=== PATIENT | female | born 1940 | race Caucasian/White ===

== ENCOUNTER 2016-04-30 08:00 | Outpatient (CLI) | payer MEDICARE, OTHER | END 2016-04-30 08:01 | disposition home or self-care (01) | DX: E11.8 Type 2 diabetes mellitus with unspecified complications (principal) ==

== ENCOUNTER 2016-07-30 09:00 | Outpatient (CLI) | payer MEDICARE, OTHER | END 2016-07-30 09:01 | disposition home or self-care (01) | DX: E11.65 Type 2 diabetes mellitus with hyperglycemia (principal) ==

== ENCOUNTER 2016-08-11 14:26 | Outpatient (CLI) | payer MEDICARE, OTHER ==
[2016-08-11] MEDS ORDERED: REGADENOSON 0.4 MG/5 ML SYRINGE IVP ONE (15:13)
== END 2016-08-11 14:27 | disposition home or self-care (01) ==
DX: R94.31 Abnormal electrocardiogram [ECG] [EKG] (principal)
CPT/HCPCS: 78452; 93017; A9500; J2785

== ENCOUNTER 2016-08-19 14:18 | Outpatient (CLI) | payer MEDICARE, OTHER ==
[2016-08-19 16:06] LABS: CHOL/HDL RATIO 4.6 (<4.4); CHOLESTEROL 116 mg/dL; HDL CHOLESTEROL 25 mg/dL; LDL/HDL RATIO 2.2 (<4.4); TRIGLYCERIDES 176 mg/dL; VLDL CHOLESTEROL 35 mg/dL
== END 2016-08-19 14:19 | disposition home or self-care (01) ==
LOC: LAB 14:18
PROVIDERS: ATTEND Internal Medicine Cardiovascular Disease
DX: Z01.818 Encounter for other preprocedural examination (principal); E11.8 Type 2 diabetes mellitus with unspecified complications; R09.89 Other specified symptoms and signs involving the circulatory and respiratory systems; I15.9 Secondary hypertension, unspecified; I73.9 Peripheral vascular disease, unspecified; G45.9 Transient cerebral ischemic attack, unspecified; I25.10 Atherosclerotic heart disease of native coronary artery without angina pectoris; I70.1 Atherosclerosis of renal artery
CPT/HCPCS: 36415; 80061

== ENCOUNTER 2016-12-30 14:02 | Outpatient (CLI) | payer MEDICARE, OTHER ==
--- NOTE | 2016-12-31 11:50 | DEXA Report ---
requested L4 data excluded from table - still leave total & spine summary? * DEXA SCAN: 12/30/2016 CLINICAL INDICATION: Postmenopausal. TECHNIQUE: Dual energy x-ray absorptiometry (DXA) was performed on a [employer] system. Regions measured are the AP spine, femoral neck, and, if needed, forearm. COMPARISON: None. In accordance with the International Society for Clinical Densitometry (ISCD) guidelines, data from previous exams may be reanalyzed using current recommendations and techniques. This is done to allow a more accurate basis for comparison with the current study. FINDINGS The data for the lumbar spine is as follows: REGION BMD (g/cm/cm) T-SCORE Z-SCORE L1 1.698 4.7 5.9 L2 1.986 6.5 7.7 L3 2.251 8.8 9.9 L4 --- --- --- TOTAL 1.996 6.9 8.0 NOTE: All evaluable vertebrae are used for classification. The data for the hip is as follows: REGION BMD (g/cm/cm) T-SCORE Z-SCORE Neck 1.094 0.4 2.0 TOTAL 1.211 1.6 3.1 NOTE: The femoral neck or total proximal femur, whichever is lowest, is used for classification. IMPRESSION: THE WHO CLASSIFICATION BASED ON THE INTERNATIONAL REFERENCE STANDARD IS NORMAL. THE FRACTURE RISK IS NOT INCREASED. L4 EXCLUDED DUE TO PREVIOUS PEDICLE SCREW FUSION. RECOMMENDATION: Patients with diagnosis of osteoporosis or osteopenia should have regular bone mineral density assessment. For those eligible for Medicare, routine testing is allowed once every 2 years. Testing frequency can be increased for patients who have rapidly progressing disease or for those who are receiving medical therapy to restore bone mass. COMMENT: World Health Organization (WHO) definitions for osteoporosis and osteopenia: NORMAL BMD: T-score at -1.0 or higher, fracture risk is low. OSTEOPENIA BMD: T-score between -1.0 and -2.5, fracture risk is increased. OSTEOPOROSIS BMD: T-score at -2.5 or lower, fracture risk high. National Osteoporosis Foundation recommends: 1. Obtain adequate dietary calcium (at least 1200 mg per day) and vitamin D (400 -800 international units per day). 2. Participate, as appropriate, in regular weightbearing and muscle- strengthening exercise. 3. Avoid tobacco use and reduce alcohol and caffeine intake. 4. For more detailed information see the website at www.NOF.org. MTDD
== END 2016-12-30 14:03 | disposition home or self-care (01) ==
LOC: DI 14:02
PROVIDERS: ATTEND Internal Medicine Hematology & Oncology
DX: C50.912 Malignant neoplasm of unspecified site of left female breast (principal); Z79.811 Long term (current) use of aromatase inhibitors; Z78.0 Asymptomatic menopausal state
CPT/HCPCS: 77080

== ENCOUNTER 2016-12-30 14:28 | Outpatient (CLI) | payer MEDICARE, OTHER ==
--- NOTE | 2016-12-30 17:40 | Mammography Report ---
DIGITAL DIAGNOSTIC BILATERAL MAMMOGRAM: 12/30/2016 CLINICAL INDICATION: A 76-year-old with personal history of left breast cancer status post lumpectom y and radiation therapy, family history of breast cancer. TECHNIQUE: Bilateral CC and MLO views, left true lateral and laterally exaggerated craniocaudal view s. COMPARISON: 09/03/2015, 07/07/2014, 01/17/2014, 05/31/2013, 10/21/2012, 02/25/2012, 02/02/2012, 03/2010, 01/16/2010. FINDINGS: The breasts again demonstrate scattered fibroglandular densities bilaterally. Postoperati ve and posttreatment changes in the left breast are stable. Punctate, typically benign calcification s are present. No suspicious masses, clustered microcalcifications, or regions of architectural dist ortion are identified. IMPRESSION: BENIGN FINDINGS. RECOMMENDATION: Routine annual screening unless otherwise clinically indicated. BI-RADS category 2, benign findings. STANDARD QUALIFYING STATEMENTS 1. This examination was reviewed with the aid of Computer-Aided Detection (CAD). 2. A negative or benign imaging report should not delay biopsy if clinically suspicious findings are present. Consider surgical consultation if warranted. More than 5% of cancers are not identified by i maging. 3. Dense breasts may obscure an underlying neoplasm. JOB #: [id number] EXT JOB #:[id number]
== END 2016-12-30 14:29 | disposition home or self-care (01) ==
LOC: DI 14:28
PROVIDERS: ATTEND Internal Medicine Hematology & Oncology
DX: C50.912 Malignant neoplasm of unspecified site of left female breast (principal); Z79.811 Long term (current) use of aromatase inhibitors; Z80.3 Family history of malignant neoplasm of breast; Z78.0 Asymptomatic menopausal state
CPT/HCPCS: 77080; G0204; 77066

== ENCOUNTER 2017-07-29 08:00 | Outpatient (CLI) | payer MEDICARE, OTHER ==
[2017-07-29 19:36] LABS: BASOPHILS % (AUTO) 0.6 %; EOSINOPHILS # (AUTO) 0.2 10^3/uL (0.0-0.7); EOSINOPHILS % (AUTO) 3.8 %; HGB - HEMOGLOBIN 9.4 g/dL (12.0-16.0); LYMPHOCYTES # (AUTO) 1.3 10^3/uL (1.5-3.5); LYMPHOCYTES % (AUTO) 22.5 %; MEAN CORPUSCULAR HEMOGLOBIN 24.6 pg (27.0-31.0); MEAN CORPUSCULAR HGB CONC 31.4 g/dL (32.0-36.0); MEAN CORPUSCULAR VOLUME 78.3 fL (81.0-99.0); MEAN PLATELET VOLUME 7.9 fL (7.9-10.8); MONOCYTES # (AUTO) 0.5 10^3/uL (0.0-1.0); NEUTROPHILS # (AUTO) 3.7 10^3/uL (1.5-6.6); NEUTROPHILS % (AUTO) 64.1 %; PLT - PLATELET COUNT 255 10^3/uL (130-450); RED BLOOD COUNT 3.81 10^6/uL (4.20-5.40); WHITE BLOOD COUNT 5.7 x10^3/uL (4.8-10.8)
[2017-07-29 19:58] LABS: ALBUMIN 3.4 g/dL (3.2-5.5); ALBUMIN/GLOBULIN RATIO 1.2 (1.0-2.2); ALKALINE PHOSPHATASE 79 IU/L (42-121); ALT ALANINE AMINOTRANSFERASE 12 IU/L (10-60); AST ASPARTATE AMINOTRANSFERASE 15 IU/L (10-42); BILIRUBIN,TOTAL 0.6 mg/dL (0.2-1.0); BUN - BLOOD UREA NITROGEN 13 mg/dL (6-20); CALCIUM 9.2 mg/dL (8.5-10.3); CARBON DIOXIDE - CO2 26 mmol/L (21-32); CHLORIDE 106 mmol/L (101-111); CHOL/HDL RATIO 3.6 (<4.4); CHOLESTEROL 94 mg/dL; CREATININE 0.8 mg/dL (0.4-1.0); GFR - MDRD 69 (>89); GLUCOSE 88 mg/dL (70-100); HDL CHOLESTEROL 26 mg/dL; LDL CHOLESTEROL,CALCULATED 43 mg/dL; LDL/HDL RATIO 1.7 (<4.4); SODIUM 139 mmol/L (135-145); TOTAL PROTEIN 6.3 g/dL (6.7-8.2); URIC ACID 6.8 mg/dL (2.6-7.2); VLDL CHOLESTEROL 25 mg/dL
[2017-07-29 20:07] LABS: HB2 TOTAL 9.9 g/dL; HEMOGLOBIN A1C 0.47 g/dL; HEMOGLOBIN A1C % 6.5 % (4.6-6.2)
== END 2017-07-29 08:01 | disposition home or self-care (01) ==
LOC: LAB.N 08:00
PROVIDERS: ATTEND Internal Medicine
DX: E11.9 Type 2 diabetes mellitus without complications (principal); E79.0 Hyperuricemia without signs of inflammatory arthritis and tophaceous disease; E03.9 Hypothyroidism, unspecified; E78.5 Hyperlipidemia, unspecified; I10 Essential (primary) hypertension; Z79.899 Other long term (current) drug therapy
CPT/HCPCS: 36415; 80053; 80061; 83036; 83721; 84443; 84550; 85025

== ENCOUNTER 2017-08-03 08:00 | Outpatient (CLI) | payer MEDICARE, OTHER ==
[2017-08-03 18:59] LABS: MEAN RETIC VALUE 99.2; RED BLOOD COUNT 3.99 10^6/uL (4.20-5.40)
[2017-08-03 19:32] LABS: FERRITIN 17.9 ng/mL (11.0-306.8)
== END 2017-08-03 08:01 | disposition home or self-care (01) ==
LOC: LAB.N 08:00
PROVIDERS: ATTEND Internal Medicine
DX: D64.9 Anemia, unspecified (principal)
CPT/HCPCS: 36415; 82607; 82728; 83010; 85044; 86880

== ENCOUNTER 2017-09-22 10:13 | Day surgery (SDC) | payer MEDICARE, OTHER ==
[~2017-09-22 10:13] MED LIST: LIDO GARGLE 30 ML BOTTLE ONE
[2017-09-22] MEDS ORDERED: LACTATED RINGERS 1,000 ML IV ONE ×2 (10:56)
[2017-09-22] MEDS ORDERED: LIDO GARGLE 30 ML BOTTLE PO ONE ×2 (11:14→11:44)
[2017-09-22] MEDS ORDERED: fentaNYL 100 MCG/2 ML VIAL IVP ONE (11:40)
[2017-09-22] MEDS ORDERED: MIDAZOLAM 2 MG/2 ML VIAL IVP ONE (11:40)
[2017-09-22] MEDS ORDERED: GLUCAGON 1 MG/ML VIAL IM ONE (11:40)
[2017-09-22 13:12] LABS: CALCIUM 8.6 mg/dL (8.5-10.3); CREATININE 1.1 mg/dL (0.4-1.0)
[2017-09-22 14:06] VITALS: BP 132/70
== END 2017-09-22 10:14 | disposition home or self-care (01) ==
LOC: SDS 10:13
PROVIDERS: ATTEND Surgery
PROC: 0DBM8ZZ Excision of Descending Colon, Via Natural or Artificial Opening Endoscopic (ICD-10-PCS; 2017-09-22)
PROC: 3E0H8GC Introduction of Other Therapeutic Substance into Lower GI, Via Natural or Artificial Opening Endoscopic (ICD-10-PCS; 2017-09-22)
PROC: 0DB68ZX Excision of Stomach, Via Natural or Artificial Opening Endoscopic, Diagnostic (ICD-10-PCS; 2017-09-22)
PROC: 0DBK8ZX Excision of Ascending Colon, Via Natural or Artificial Opening Endoscopic, Diagnostic (ICD-10-PCS; principal; 2017-09-22 11:30)
PROC: 0DBN8ZZ Excision of Sigmoid Colon, Via Natural or Artificial Opening Endoscopic (ICD-10-PCS; 2017-09-22 11:30)
DX: C18.2 Malignant neoplasm of ascending colon (principal); K29.71 Gastritis, unspecified, with bleeding; D50.9 Iron deficiency anemia, unspecified; D12.4 Benign neoplasm of descending colon; D12.5 Benign neoplasm of sigmoid colon; E11.9 Type 2 diabetes mellitus without complications; E78.5 Hyperlipidemia, unspecified; I10 Essential (primary) hypertension; Z85.3 Personal history of malignant neoplasm of breast; Z80.3 Family history of malignant neoplasm of breast; Z87.891 Personal history of nicotine dependence; Z79.84 Long term (current) use of oral hypoglycemic drugs
CPT/HCPCS: 36415; 43239; 45380; 45381; 80048; 82378; A9270; J7120; 88305; 88341; 88342

== ENCOUNTER 2017-09-29 09:59 | Outpatient (CLI) | payer MEDICARE, OTHER ==
[2017-09-29] MEDS ORDERED: IOPAMIDOL-300 100 ML VIAL ONE (10:21)
[2017-09-29] MEDS ORDERED: IOPAMIDOL-300 50 ML VIAL ONE (10:21)
[2017-09-29] MEDS ORDERED: IOPAMIDOL-300 50 ML VIAL PO ONE (11:27)
[2017-09-29] MEDS ORDERED: IOPAMIDOL-300 100 ML VIAL IVP ONE (11:27)
--- NOTE | 2017-09-29 14:56 | CT Report ---
Procedure Date: 09/29/2017 Accession Number: [id number] / [id number] Procedure: CT - Chest W/ CPT Code: FULL RESULT: EXAM: Chest W/ DATE: 09/29/2017 11:25 AM CLINICAL HISTORY: RIGHT COLON MASS COMPARISON: None. TECHNIQUE: Routine helical CT imaging was performed through the chest. IV contrast: 100 mL Isovue 300 Reconstructions: Coronal and sagittal. In accordance with CT protocol optimization, one or more of the following dose reduction techniques were utilized for this exam: automated exposure control, adjustment of mA and/or KV based on patient size, or use of iterative reconstructive technique. FINDINGS: Lungs/Pleura: Pleural calcifications, suggestive of previous asbestos exposure. No pulmonary nodule or mass lesion. No effusion or pneumothorax. Mediastinum: Normal. No adenopathy or masses. The heart and great vessels are normal. Bones: Degenerative changes. Visualized Abdomen: Please see separate CT. Other: None. IMPRESSION: No evidence of pulmonary metastatic disease. Pleural calcifications, suggestive of previous asbestos exposure. RADIA
--- NOTE | 2017-09-29 15:01 | CT Report ---
Procedure Date: 09/29/2017 Accession Number: [id number] / [id number] Procedure: CT - Abdomen/Pelvis W/ CPT Code: FULL RESULT: EXAM: Abdomen/Pelvis W/ DATE: 09/29/2017 11:25 AM CLINICAL HISTORY: RIGHT COLON MASS COMPARISON: None. TECHNIQUE: Routine helical CT imaging was performed through the abdomen and pelvis. IV contrast: 100 mL Isovue 300. Enteric contrast: Yes. Reconstructions: Coronal and sagittal. In accordance with CT protocol optimization, one or more of the following dose reduction techniques were utilized for this exam: automated exposure control, adjustment of mA and/or KV based on patient size, or use of iterative reconstructive technique. FINDINGS: Lung Bases: Please see separate CT. Liver: There is a 1.4 x 0.8 cm hypodensity in the posterior right lobe of the liver, suspicious for a metastatic focus. A 4 mm hypodensity is noted more centrally in the right lobe, too small to further characterize. Gallbladder/Bile Ducts: Unremarkable. Spleen: Normal. Pancreas: Normal. Adrenal Glands: Normal. Kidneys: Cortical cysts. No hydronephrosis or nephrolithiasis. Peritoneal Cavity/Bowel: There is a mass at the hepatic flexure of the colon. A few small mesenteric lymph nodes are noted. No adenopathy. Pelvic Organs: Postoperative changes of hysterectomy. Previous left hip replacement, with streak artifact limiting visualization in the lower pelvis. Vasculature: No aneurysms or other significant abnormality. Bones: Degenerative changes, previous lumbar spine fusion, and previous left hip replacement. Other: None. IMPRESSION: Mass at the hepatic flexure of the colon. Small lymph nodes in the surrounding mesentery. A 1.4 cm hypodense lesion in the posterior right lobe of the liver, suspicious for a metastatic focus. RADIA
== END 2017-09-29 10:00 | disposition home or self-care (01) ==
LOC: DI 09:59
PROVIDERS: ATTEND Surgery
DX: K63.89 Other specified diseases of intestine (principal); C18.9 Malignant neoplasm of colon, unspecified
CPT/HCPCS: 71260; 74177; Q9967

== ENCOUNTER 2017-10-01 11:28 | Outpatient (CLI) | payer MEDICARE, OTHER ==
[2017-10-01] MEDS ORDERED: REGADENOSON 0.4 MG/5 ML SYRINGE IVP ONE (15:54)
--- NOTE | 2017-10-01 16:25 | CARDIAC PROCEDURE NOTE ---
DATE OF SERVICE: 10/01/2017 Physician: ELIZABETH Mayes PRIMARY CARE PHYSICIAN: Jefry Deleon MD PROCEDURE: Pharmacologic cardiac stress test. PROCEDURE SYMPTOMS: New right bundle branch block on preoperative exam. CARDIAC RISK FACTORS 1. Age. 2. Hypertension. 3. Hyperlipidemia. 4. Diabetes. PREVIOUS CARDIAC PROCEDURES: [facility]PS in July 2016. CLINICAL HISTORY: A 77-year-old female with known coronary artery disease. She has no current symptoms and feels fine. INITIAL RESTING VITAL SIGNS: BP 154/86, heart rate 76, height 63-1/2 inches, weight 199 pounds, BMI 34.69. PROCEDURE AND FINDINGS: The patient's identity and date verified. Consent signed. Pharmaceutical check. Pharmacologic stress testing was performed with Lexiscan at a dose of 0.4 mg over 10 seconds. The heart rate increased to 91 beats per minute from the infusion. Blood pressure response was normal during the stress procedure. The patient had no infusion-related symptoms. The resting ECG demonstrated normal sinus rhythm with right bundle branch rhythm with nonspecific T-wave changes. Maximum ST segment depression with stress was 0. There was occasional PAC ectopy. FINAL IMPRESSIONS 1. Good quality test. 2. Nondiagnostic electrocardiogram for ischemia in the setting of vasodilator stress. 3. Nondiagnostic stress test for angina. 4. Premature atrial contraction ectopy. DISCUSSION AND RECOMMENDATIONS: Await myocardial perfusion report. TD: 10/01/2017 14:57
--- NOTE | 2017-10-01 16:55 | Nuclear Medicine Report ---
Procedure Date: 10/01/2017 Accession Number: [id number] / [id number] Procedure: NM - Myocardial Perfusion STR/RST CPT Code: FULL RESULT: EXAM: SINGLE-ISOTOPE PHARMACOLOGICAL STRESS TEST WITH REGADENOSON. SINGLE-ISOTOPE AND ONE-DAY REST/STRESS MYOCARDIAL PERFUSION SCANS WITH TOMOGRAPHIC IMAGING, QUANTITATIVE ANALYSIS, WALL MOTION ANALYSIS AND CALCULATION OF EJECTION FRACTION. EXAM DATE: 10/01/2017 12:00 PM. CLINICAL HISTORY: CORONARY ARTERY DISEASE. COMPARISON: Myocardial perfusion study 08/11/2016. TECHNIQUE: After the intravenous administration of 10.3 mCi of Tc-99m sestamibi, a rest myocardial perfusion scan was done with tomography. Motion correction was applied when appropriate. After an appropriate delay, pharmacological stress was performed with the infusion of 0.4 mg regadenoson per protocol. According to protocol, 40.8 mCi of Tc-99m sestamibi was injected for stress myocardial perfusion scan. Motion correction was applied when appropriate. Gated tomographic images were obtained for wall motion analysis and computation of left ventricular ejection fraction. FINDINGS: Perfusion images: Left ventricular chamber size is normal at rest and unchanged at stress. Small to moderate size region of mildly to moderately reduced uptake involving the entire inferior wall, partially improved on rest images. Diaphragmatic attenuation, and adjacent visceral activity on the rest images may contribute to this appearance. This is similar to prior. Small size region of mildly reduced uptake involving the apical half of the anteroseptal wall, similar on stress and rest images, may relate to breast attenuation artifact. This was not present on the prior study. no convincing reversible perfusion deficits. Gated images: No convincing focal wall motion abnormality. The left ventricular ejection fraction is estimated at 67% (normal > 50%). Left ventricular EDV 89 mL, ESV 29 mL. IMPRESSION: 1. Small to moderate size, mild to moderate severity inferior wall partially reversible perfusion deficit. Diaphragmatic attenuation and adjacent visceral activity may contribute to this appearance however. 2. Small size, mild severity fixed apical half anteroseptal wall deficit, may relate to breast attenuation artifact. 3. Left ventricular ejection fraction of 67% (normal > 50%). 4. No convincing focal wall motion abnormalities. RADIA The above findings were discussed with Jefry Deleon by Dr. Myke Ferguson at 16:54 hrs on 10/01/17.
== END 2017-10-01 11:29 | disposition home or self-care (01) ==
LOC: DI 11:28
PROVIDERS: ATTEND Internal Medicine
DX: I25.10 Atherosclerotic heart disease of native coronary artery without angina pectoris (principal); I10 Essential (primary) hypertension; E78.5 Hyperlipidemia, unspecified; E11.9 Type 2 diabetes mellitus without complications; C18.9 Malignant neoplasm of colon, unspecified
CPT/HCPCS: 36415; 78452; 80053; 85025; 93016; 93017; 93018; A9500; J2785

== ENCOUNTER 2017-10-01 15:38 | Outpatient (CLI) | payer MEDICARE, OTHER ==
[2017-10-01 15:52] LABS: BASOPHILS % (AUTO) 0.5 %; EOSINOPHILS # (AUTO) 0.2 10^3/uL (0.0-0.7); EOSINOPHILS % (AUTO) 3.5 %; HGB - HEMOGLOBIN 9.1 g/dL (12.0-16.0); LYMPHOCYTES # (AUTO) 1.4 10^3/uL (1.5-3.5); LYMPHOCYTES % (AUTO) 22.6 %; MEAN CORPUSCULAR HEMOGLOBIN 24.5 pg (27.0-31.0); MEAN CORPUSCULAR HGB CONC 31.3 g/dL (32.0-36.0); MEAN CORPUSCULAR VOLUME 78.2 fL (81.0-99.0); MEAN PLATELET VOLUME 7.1 fL (7.9-10.8); MONOCYTES # (AUTO) 0.5 10^3/uL (0.0-1.0); MONOCYTES % (AUTO) 7.8 %; NEUTROPHILS % (AUTO) 65.6 %; PLT - PLATELET COUNT 287 10^3/uL (130-450); RED CELL DISTRIBUTION WIDTH 18.6 % (12.0-15.0); WHITE BLOOD COUNT 6.1 x10^3/uL (4.8-10.8)
[2017-10-01 16:05] LABS: ALBUMIN 2.8 g/dL (3.2-5.5); ALBUMIN/GLOBULIN RATIO 0.8 (1.0-2.2); BILIRUBIN,TOTAL 0.5 mg/dL (0.2-1.0); CALCIUM 8.7 mg/dL (8.5-10.3); CREATININE 0.8 mg/dL (0.4-1.0); TOTAL PROTEIN 6.1 g/dL (6.7-8.2)
== END 2017-10-01 15:39 | disposition home or self-care (01) ==
LOC: LAB 15:38
PROVIDERS: ATTEND Internal Medicine
DX: C18.9 Malignant neoplasm of colon, unspecified (principal)
CPT/HCPCS: 36415; 80053; 85025

== ENCOUNTER 2017-10-02 09:55 | Outpatient (CLI) | payer MEDICARE, OTHER ==
--- NOTE | 2017-10-02 12:08 | Ultrasound Report ---
Procedure Date: 10/02/2017 Accession Number: [id number] / [id number] Procedure: US - Carotid Doppler Complete CPT Code: FULL RESULT: EXAM: BILATERAL CAROTID AND VERTEBRAL ARTERY DUPLEX DOPPLER ULTRASOUND: EXAM DATE: 10/02/2017 11:50 AM CLINICAL HISTORY: Carotid artery stenosis. COMPARISON: 01/18/2015. TECHNIQUE: Cortes-scale imaging, color Doppler, and duplex spectral Doppler were used to evaluate the carotid and vertebral arteries bilaterally. Static images were obtained. FINDINGS: Significant volume of atheromatous plaque is seen in the distal right common carotid, right carotid bulb and right internal and external carotid arteries as well as the right subclavian artery. Extensive volume of calcified atheromatous plaque is present in the left common carotid artery, left carotid bulb and left internal and external carotid arteries. VELOCITIES (cm/sec): Right: RCCA Prox: PSV 96 cm/sec. RCCA Dist: PSV 71 cm/sec, EDV 22 cm/sec. RECA: PSV 203 cm/sec. R Bulb: PSV 101 cm/sec, EDV 20 cm/sec, ICA/CCA ratio 1.4. ELIECER Prox: PSV 155 cm/sec, EDV 29 cm/sec, ICA/CCA ratio 2.1. ELIECER Mid: PSV 108 cm/sec, EDV 32 cm/sec, ICA/CCA ratio 1.5. ELIECER Dist: PSV 79 cm/sec, EDV 2 cm/sec, ICA/CCA ratio 1.1. RVA: PSV 47 cm/sec. RVA flow direction: Antegrade. Left: LCCA Prox: PSV 62 cm/sec. LCCA Dist: PSV 61 cm/sec, EDV 17 cm/sec. LECA: PSV 302 cm/sec. L Bulb: PSV 330 cm/sec, EDV 74 cm/sec, ICA/CCA ratio 5.4. LICA Prox: PSV 412 cm/sec, EDV 124 cm/sec, ICA/CCA ratio 6.7. LICA Mid: PSV 221 cm/sec, EDV 72 cm/sec, ICA/CCA ratio 3.6. LICA Dist: PSV 178 cm/sec, EDV 43 cm/sec, ICA/CCA ratio 2.9. LVA: PSV 37 cm/sec. LVA flow direction: Antegrade. ICA diameter stenosis: Right: 50-69 by velocity and 50-69 by NASCET criteria. Left: Greater than 70% by velocity and greater than 70% by NASCET criteria. IMPRESSION: 1. Extensive bilateral carotid artery plaquing. 2. Greater than 70% stenosis left carotid bulb and mid and proximal left internal carotid arteries with interval progression. 3. 50-69% stenosis proximal right internal carotid artery. 4. Normal antegrade flow is present in bilateral vertebral arteries. Findings discussed with Dr. Deleon following this study on 10/02/2017. Management recommendations and diagnostic criteria are based on current IAC endorsed standards in Carotid Artery Stenosis: Grayscale and Doppler Ultrasound Diagnosis. Validated velocity measurements with angiographic measurements and velocity criteria are extrapolated from diameter data as defined by the Society of Radiologists in Ultrasound Consensus Conference Radiology 2003; 229;340-346. RADIA
== END 2017-10-02 09:56 | disposition home or self-care (01) ==
LOC: DI 09:55
PROVIDERS: ATTEND Internal Medicine
DX: I65.23 Occlusion and stenosis of bilateral carotid arteries (principal)
CPT/HCPCS: 93880

== ENCOUNTER 2017-10-22 14:35 | Outpatient (CLI) | payer MEDICARE, OTHER ==
[2017-10-22 15:03] LABS: BASOPHILS % (AUTO) 0.5 %; EOSINOPHILS # (AUTO) 0.2 10^3/uL (0.0-0.7); EOSINOPHILS % (AUTO) 3.2 %; LYMPHOCYTES # (AUTO) 1.6 10^3/uL (1.5-3.5); LYMPHOCYTES % (AUTO) 24.9 %; MEAN CORPUSCULAR HEMOGLOBIN 25.5 pg (27.0-31.0); MEAN CORPUSCULAR HGB CONC 31.9 g/dL (32.0-36.0); MEAN PLATELET VOLUME 7.7 fL (7.9-10.8); MONOCYTES # (AUTO) 0.5 10^3/uL (0.0-1.0); MONOCYTES % (AUTO) 7.7 %; NEUTROPHILS # (AUTO) 4.1 10^3/uL (1.5-6.6); NEUTROPHILS % (AUTO) 63.7 %; PLT - PLATELET COUNT 263 10^3/uL (130-450); RED BLOOD COUNT 3.91 10^6/uL (4.20-5.40); RED CELL DISTRIBUTION WIDTH 21.2 % (12.0-15.0); WHITE BLOOD COUNT 6.4 x10^3/uL (4.8-10.8)
[2017-10-22 15:11] LABS: ALBUMIN 3.2 g/dL (3.2-5.5); ALBUMIN/GLOBULIN RATIO 0.9 (1.0-2.2); BILIRUBIN,TOTAL 1.1 mg/dL (0.2-1.0); CALCIUM 8.9 mg/dL (8.5-10.3); TOTAL PROTEIN 6.7 g/dL (6.7-8.2)
[2017-10-22 15:25] LABS: PLATELET ESTIMATE, MANUAL NORMAL (130-450,000) (NORMAL); PLATELET MORPHOLOGY NORMAL APPEARANCE (NORMAL)
== END 2017-10-22 14:36 | disposition home or self-care (01) ==
LOC: LAB 14:35
PROVIDERS: ATTEND Surgery
DX: D64.9 Anemia, unspecified (principal)
CPT/HCPCS: 36415; 80053; 85025; 86850; 86900; 86901; 86920

== ENCOUNTER 2017-10-23 06:10 | Inpatient (IN) | payer MEDICARE, OTHER ==
[2017-10-23] MEDS ORDERED: ERTAPENEM 1 GM VIAL ONE (07:00)
[2017-10-23] MEDS ORDERED: LACTATED RINGERS 1,000 ML IV ONE ×3 (07:11→11:01)
--- NOTE | 2017-10-23 07:21 | ANESTHESIA ---
Pre-Anesthesia VS, & Labs - Diagnosis [facility] Colon Cancer - Procedure Laparoscopic right hemicolectomy Vital Signs: Temp Pulse Resp BP Pulse Ox 36.9 C 16 157/73 H 97 10/23/17 06:36 10/23/17 06:36 10/23/17 06:36 10/23/17 06:36 Height 5 ft 4 in Weight (kg) 85.5 kg Body Mass Index 34.1 - NPO >8 hours - Is Patient ?: No - Lab Results Lab results reviewed: Yes Other Lab Results: labs from 10/22 printed on chart Home Medications and Allergies Home Medications: Ambulatory Orders Medication Instructions Recorded Confirmed Terazosin [Hytrin] 5 mg PO BID 08/11/12 10/22/17 metFORMIN [Glucophage] 250 mg PO BID 08/11/12 10/22/17 Anastrozole 1 mg PO DAILY 10/06/12 10/22/17 Aspirin Chewable [[facility] 81 mg PO DAILY 10/06/12 10/22/17 Aspirin] Atorvastatin Calcium 20 mg PO DAILY 10/06/12 10/22/17 Calcium Carbonate/Vitamin D3 1 each PO DAILY 10/06/12 10/22/17 [Calcium 600 + D3 Softgel] Carvedilol [Coreg] 25 mg PO DAILY 10/06/12 10/22/17 Hydrochlorothiazide 25 mg PO DAILY 10/06/12 10/22/17 Levothyroxine [Synthroid] 0.175 mg PO QDAC 10/06/12 10/22/17 Losartan [Cozaar] 100 mg PO BID 10/06/12 10/22/17 Multivitamin [Multivitamins] 1 each PO DAILY 10/06/12 10/22/17 Potassium Chloride [Micro-K] 20 meq PO BIDWM 10/06/12 10/22/17 Glimepiride 4 mg PO DAILY 01/17/15 10/22/17 cloNIDine [Catapres] 0.1 mg PO QPM 01/17/15 10/22/17 Clopidogrel [Plavix] 75 mg PO DAILY 05/29/15 10/22/17 Oxybutynin [Ditropan] 15 mg PO DAILY 07/07/16 10/22/17 Allergies/Adverse Reactions: Allergies Allergy/AdvReac Type Severity Reaction Status Date / Time codeine [Codeine] Allergy Unknown Rash Verified 10/22/17 15:53 shellfish derived AdvReac Unknown Unknown Verified 10/22/17 15:53 Anes History & Medical History - Anesthetic History Anesthesia Complications: reports: No previous complications Family history of Anesthesia Complications: Denies Family history of Malignant Hyperthermia: Denies - Airway/Dental Dental: WNL, Dentures full Upper Neck Mobility: Reduced Mallampati classification: II Thyromental Distance: greater than 6 cm - Medical History Cardiovascular: reports: Hypertension, High cholesterol, Coronary artery disease Gastrointestinal: reports: GERD, Colon polyps Urinary: reports: 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 Neuro: reports: Other (Carotid disease, dopper study reviewed, cleared by vascular surgeon) Musculoskeletal: reports: Osteoarthritis Endocrine/Autoimmune: reports: Type 2 diabetes Blood Disorders: reports: Anemia Skin: reports: None Smoking Status: Former smoker - Surgical History General: Colonoscopy Gynecologic: Hysterectomy, Other Orthopedic: Hip replacement Results - Other Diagnostic Imaging Results Diagnostic Imaging Results: Report reviewed (Perfusion scan reviewed, stress test reviewed,carotid dopper study reviewed) Exam General: Oriented x3 Respiratory: Lungs clear Cardiovascular: Regular rate, No murmurs Abdomen: Other (had bowel prop) Neurological: Normal gait Mental/Cognitive Status: Alert/Oriented X3 Plan Anesthesia Type: General Consent for Operative Procedure(s) Verified and Reviewed: Yes Code Status: Attempt Resuscitation ASA classification: 3-Severe systemic disease Is this case an emergency?: No
[2017-10-23] MEDS ORDERED: BUPIVACAINE 0.25%-EPI 1:200000 PF 30 ML VIAL ONE (07:37)
[2017-10-23] MEDS ORDERED: BUPIVACAINE 0.25%-EPI 1:200000 PF 30 ML VIAL SUBQ ONE ×2 (08:42)
[2017-10-23] MEDS ORDERED: ePHEDrine 50 MG/ML VIAL IVP ONE (09:00)
[2017-10-23] MEDS ORDERED: MIDAZOLAM 2 MG/2 ML VIAL IVP ONE (09:00)
[2017-10-23] MEDS ORDERED: KETOROLAC 30 MG/ML VIAL IVP ONE (09:00)
[2017-10-23] MEDS ORDERED: fentaNYL 100 MCG/2 ML VIAL IVP ONE (09:00)
[2017-10-23] MEDS ORDERED: NEOSTIGMINE 1 MG/1 ML 10 ML MDV IVP ONE (09:00)
[2017-10-23] MEDS ORDERED: ACETAMINOPHEN 1,000 MG/100 ML 100 ML IV ONE (09:00)
[2017-10-23] MEDS ORDERED: fentaNYL 250 MCG/5 ML VIAL IVP ONE (09:00)
[2017-10-23] MEDS ORDERED: GLYCOPYRROLATE 1 MG/5 ML VIAL IVP ONE (09:00)
[2017-10-23] MEDS ORDERED: LIDOCAINE-MPF 2% 5 ML VIAL IM ONE (09:00)
[2017-10-23] MEDS ORDERED: PROPOFOL 200 MG/20 ML VIAL IVP ONE (09:00)
[2017-10-23] MEDS ORDERED: ONDANSETRON 4 MG/2 ML VIAL IVP ONE (09:00)
[2017-10-23] MEDS ORDERED: HYDROmorphone 0.5 MG/0.5 ML SYRINGE IVP PRN (12:03)
[2017-10-23] MEDS: HYDROmorphone 1 MG/ML CARPUJECT ONE ×2 (12:30→12:40)
--- NOTE | 2017-10-23 12:48 | CONSULTATION NOTE ---
Referring Provider Name of Referring Provider:: Dr. Guille Degroot Consult Date: 10/23/17 Chief Complaint - Chief Complaint Chief Complaint: Postop lap R hemicolectomy History of Present Illness - Admitted From Admitted From:: [facility] - History Obtained From Records Reviewed: Centricity History obtained from: Records/Patient Exam Limitations: anesthesia emergence/pt somewhat poor historian - History of Present Illness HPI Comment/Other: Ms. Danielle is 77 y/o F with a PMH of HTN, HLD, CAD, and DM type 2 who was admitted to the ICU s/p uncomplicated R lap hemicolectomy. We were consulted for medical management of this patient during her inpatient admission. Ms. Danielle was referred to Dr. Degroot by her PCP in August 2017 after diagnosing her with iron deficiency anemia. She had not undergone colonoscopy since 2011, so she underwent an EGD and colonoscopy that month which showed a near obstructing lesion at the hepatic flexure which was biopsied and found to be cancerous (negative for Jc Syndrome). Her preoperative evaluations included a CT abd/pelvis which showed a colonic mass and a liver lesion of unknown etiology. This was followed with a PET scan which did not find a liver lesion. Carotid artery US showed 75% stenosis of the L carotid artery. She additionally has a history of breast cancer s/p multiple lumpectomies and reportedly just finished a 5 year course of anastrozole. History - Past Medical History Cardiovascular: reports: Hypertension, High cholesterol, Coronary artery disease (+MPS 07/2016 with mild reversibility, EF 60%. Opted for medical management. ), Peripheral Vascular Disease Respiratory: reports: None Neuro: reports: Other (Carotid disease (75% stenosis L side), doppler study reviewed, cleared by vascular surgeon) Endocrine/Autoimmune: reports: Type 2 diabetes GI: reports: GERD, Colon polyps, Chronic constipation BUSINESS INITIATIVES MANAGER: reports: Breast cancer (s/p 5 year course of anastrozole) : reports: 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 HEENT: reports: None Psych: reports: None Musculoskeletal: reports: Osteoarthritis Derm: reports: None MRSA Hx?: No - Past Surgical History General: reports: Colonoscopy (08/2017), EGD (08/2017) Ortho: reports: Hip replacement (L total hip), Spine surgery (Lumbar) /BUSINESS INITIATIVES MANAGER: reports: Hysterectomy, Other (Multiple lumpectomies) - Family & Social History Family History Comment/Other: Mother- CAD, DM, breast cancer. Father- CAD Living arrangement: At home Living Situation: With spouse/s.o. Social History Notes: Has lived in [place] since 1959 when her was stationed her in the [employer]. She worked part-time at the [employer] and the [employer] while she raised 3 children. retired from the [employer] and then [employer]. Independent in ADLs, ambulates without assistance at home generally, but does have a walker leftover from her hip replacement that she uses occasionally on "uneven surfaces" because she sometimes "feels wobbly". Former smoker, 12 cigarettes/day x 28 years, quit in 1984. - Substance History Use: Uses substance without health or social issues: NONE Abuse: Recurrent use of substance despite neg consequences: NONE Dependence: Experiences withdrawal or developed tolerances: NONE - POLST Patient has POLST: No POLST Status: Full Code (Advanced Directives are in patient summary section with designated DPOA) Meds/Allgy - Home Medications Home Medications: Ambulatory Orders Medication Instructions Recorded Confirmed Terazosin [Hytrin] 5 mg PO BID 08/11/12 10/22/17 metFORMIN [Glucophage] 250 mg PO BID 08/11/12 10/22/17 Anastrozole 1 mg PO DAILY 10/06/12 10/22/17 Aspirin Chewable [[facility] Jeremiah 81 mg PO DAILY 10/06/12 10/22/17 Aspirin] Atorvastatin Calcium 20 mg PO DAILY 10/06/12 10/22/17 Calcium Carbonate/Vitamin D3 1 each PO DAILY 10/06/12 10/22/17 [Calcium 600 + D3 Softgel] Carvedilol [Coreg] 25 mg PO DAILY 10/06/12 10/22/17 Hydrochlorothiazide 25 mg PO DAILY 10/06/12 10/22/17 Levothyroxine [Synthroid] 0.175 mg PO QDAC 10/06/12 10/22/17 Losartan [Cozaar] 100 mg PO DAILY 10/06/12 10/23/17 Multivitamin [Multivitamins] 1 each PO DAILY 10/06/12 10/22/17 Potassium Chloride [Micro-K] 20 meq PO BIDWM 10/06/12 10/22/17 Glimepiride 4 mg PO DAILY 01/17/15 10/22/17 cloNIDine [Catapres] 0.1 mg PO QPM 01/17/15 10/22/17 Clopidogrel [Plavix] 75 mg PO DAILY 05/29/15 10/22/17 Oxybutynin Chloride [Ditropan Xl] 15 mg PO DAILY 10/23/17 10/23/17 - Allergies Allergies/Adverse Reactions: Allergies Allergy/AdvReac Type Severity Reaction Status Date / Time codeine [Codeine] Allergy Unknown Rash Verified 10/22/17 15:53 shellfish derived AdvReac Unknown Unknown Verified 10/22/17 15:53 Review of Systems - Constitutional Constitutional: reports: Weight loss (20# over last year with dieting). denies : Fatigue, Fever, Chills, Malaise, Weakness, Night sweats - Cardiovascular Cariovascular: reports: Edema (pretibial, chronic). denies: Irregular heart rate, Palpitations, Chest pain, Lightheadedness, Syncope, Exertional dyspnea - Respiratory Respiratory: denies: Cough, Sputum production, Wheezing, SOB at rest, SOB with exertion - Gastrointestinal Gastrointestinal: reports: Nausea (Some postoperative nausea, no vomiting). denies: Abdominal pain, Abdominal distention, Diarrhea, Black stools, Bloody stools, Vomiting - Hematologic/Lymphatic Hematologic/Lymphatic: reports: Anemia. denies: Bruising, Blood clots, Bleeding tendencies - All Other Systems All Other Systems: reports: Reviewed and negative Exam - Vital Signs Reviewed Vital Signs: Yes Vital Signs: Vital Signs x48h Temp Resp BP Pulse Ox 10/23/17 12:35 14 151/62 H 100 10/23/17 12:30 16 162/85 H 100 10/23/17 12:25 12 100 10/23/17 12:15 20 164/87 H 99 10/23/17 12:10 20 173/70 H 100 10/23/17 12:05 18 173/77 H 100 10/23/17 12:00 16 183/73 H 100 10/23/17 11:58 36.5 C 16 179/72 H 100 10/23/17 06:36 36.9 C 16 157/73 H 97 Intake and Output 10/20/17 10/21/17 10/22/17 10/23/17 23:59 23:59 23:59 23:59 Intake Total 3700 Output Total 550 Balance 3150 Intake: Intake, IV Amount 3700 Acetaminophen 1,000 mg/ 100 100 ml 100 ml @ 400 mls/ hr IV Q6H BISHOP Rx#: [id number] Sodium Chloride 0.9% 1, 1000 000 ml @ 125 mls/hr IV . Q8H BISHOP Rx#:[id number] Output: Urine 450 Estimated Blood Loss 100 Vital Signs 10/23/17 10/23/17 10/23/17 06:36 11:58 12:00 Temperature 36.9 C 36.5 C Heart Rate [ Brachial] Respiratory 16 16 16 Rate Blood Pressure 157/73 H 179/72 H 183/73 H Blood Pressure [Left Brachial artery] O2 Saturation 97 100 100 10/23/17 10/23/17 10/23/17 12:05 12:10 12:15 Temperature Heart Rate [ Brachial] Respiratory 18 20 20 Rate Blood Pressure 173/77 H 173/70 H 164/87 H Blood Pressure [Left Brachial artery] O2 Saturation 100 100 99 10/23/17 10/23/17 10/23/17 12:25 12:30 12:35 Temperature Heart Rate [ Brachial] Respiratory 12 16 14 Rate Blood Pressure 158/62 H 162/85 H 151/62 H Blood Pressure [Left Brachial artery] O2 Saturation 100 100 100 10/23/17 10/23/17 10/23/17 12:40 12:45 12:50 Temperature 36.5 C Heart Rate [ Brachial] Respiratory 9 L 16 14 Rate Blood Pressure 167/50 H 164/65 H 169/58 H Blood Pressure [Left Brachial artery] O2 Saturation 100 100 100 10/23/17 10/23/17 10/23/17 13:00 13:10 13:20 Temperature Heart Rate [ Brachial] Respiratory 11 L 13 13 Rate Blood Pressure 170/53 H 168/100 H 165/88 H Blood Pressure [Left Brachial artery] O2 Saturation 100 10 L 100 10/23/17 10/23/17 10/23/17 13:38 14:11 14:43 Temperature 36.4 C L 36.4 C L Heart Rate [ 68 72 Brachial] Respiratory 13 14 14 Rate Blood Pressure 168/71 H Blood Pressure 168/71 H 199/80 H [Left Brachial artery] O2 Saturation 100 100 100 - Physical Exam General Appearance: positive: No acute distress (Pleasant and appropriate, lying in bed in NAD), Alert, Other (elderly female, cheerful, full lipstick then is leaching onto her dentures.) Eyes Bilateral: positive: PERRL, EOMI, No scleral icterus ENT: positive: ENT inspection nml Neck: positive: Nml inspection, No JVD, Trachea midline Respiratory: positive: No respiratory distress, Breath sounds nml. negative: Wheezes, Rales, Rhonchi Cardiovascular: positive: Regular rate & rhythm, No murmur, No gallop. negative : Systolic murmur, Friction rub Peripheral Pulses: positive: 1+ Abdomen: positive: No distention, Tenderness (TTP above midline incision), Abnml bowel sounds (Hypoactive BS (postop)). negative: No organomegaly, Guarding, Rebound Skin: positive: Color nml, No rash, Warm, Dry Extremities: positive: Non-tender, Full ROM, Nml appearance, No pedal edema ( pretibial edema 1+). negative: Calf tenderness Neurologic/Psychiatric: positive: Oriented x3, CN's nml (2-12), Motor nml. negative: Weakness, Facial droop, Slurred/abnml speech Conclusion/Plan - Plan Plan: Ms. Danielle is a 77 y/o F with multiple comorbidities who underwent an uncomplicated R lap hemicolectomy on 10/23 with an EBL of 100ml. Postoperatively she is recovering with stable vital signs and reports her pain is well controlled. She denies any CP or SOB. Her abd is mildly TTP above midline incision as expected, all incisions are CDI and approximated with surgical glue. She will likely need to remain NPO for a few days following this surgery, so we will convert some of her home medications for her stable chronic conditions to IV formulations during this time. She is quite hypertensive on admission and unsure if she took her home dose of carvedilol prior to surgery this morning as instructed, so I will follow up with her to verify. 1. Colon ca s/p lap R hemicoloectomy 10/23: history of baseline iron deficiency anemia from colon ca, preop H&H 01/27.3%. * check CBC in am * monitor for s/s of bleeding in ICU overnight * transfuse for hgb <8 * postoperative admission orders per general surgery 2. Diabetes type 2: on home glimepiride and metformin, will follow up on PCP record for recent hgbA1C * hold home oral antiglycemics * NPO per surgery, order NPO medium dose SSI * q6h blood glucose checks 3. HTN: on losartan, carvedilol, and hctz. pt unsure if she took BB this morning before surgery, preoperative directions for her to take, will follow up with . Hypertensive with SBPs 170-190s on arrival to ICU. * hold home antihypertensives while NPO * IV vasotec scheduled * consider starting IV metoprolol tomorrow * clonidine is being used for prn hot flashes, it appears, and not her HTN. Will not use that for now. 4. Hyperlipidemia: home dose of atorvastatin 20mg. Hold while NPO. Consider increasing atorvastatin dose to high intensity on discharge given known CAD (+ MPS in 2017) and 75% L carotid artery stenosis. 5. Coronary Artery Disease: see above. Hold ASA. She doesn't know why she's on Plavix. Will hold while she's here. 6. Hypothyroidism: hold levothyroxine while NPO 7. Breast Cancer: reportedly just finished 5 year course of anastrozole. 8. Urinary 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: on oxybutynin and terazosin at home, hold while NPO. Indwelling urinary catheter in place. 9. DVT prophylaxis is SCD's and Asaf gottlieb. If we need lovenox, that would be started tomorrow per surgery. - Lab Results Lab results reviewed: Yes Other Lab Results: Preoperative lab values from 10/22 reviewed, preop H&H= 01/27.3%
[2017-10-23] MEDS: ACETAMINOPHEN 1,000 MG/100 ML 100 ML IV SCH ×2 (14:21→18:13)
[2017-10-23] MEDS: SODIUM CHLORIDE 0.9% 1,000 ML IV SCH ×2 (14:21→22:58)
[2017-10-23] MEDS: HYDROmorphone 1 MG/ML CARPUJECT IVP PRN (16:33)
[2017-10-23] MEDS: SODIUM CHLORIDE FLUSH 0.9% 10 ML SYRINGE IVP SCH ×2 (16:33→17:07)
[2017-10-23] MEDS ORDERED: METOPROLOL 5 MG/5 ML VIAL IVP SCH (17:00)
[2017-10-23] MEDS: ONDANSETRON 4 MG/2 ML VIAL IVP PRN (17:03)
[2017-10-23] MEDS: INSULIN REGULAR HUMAN 100 UNIT/1 ML 10 ML MDV SUBQ SCH (17:30)
[2017-10-23] MEDS: ENALAPRILAT 1.25 MG/ML VIAL IVP SCH (17:34)
[2017-10-23] MEDS: SODIUM CHLORIDE FLUSH 0.9% 10 ML SYRINGE IVP PRN (17:34)
[2017-10-23] MEDS ORDERED: PROCHLORPERAZINE INJ 10 MG in SODIUM CHLORIDE 0.9% 50 ML IV PRN (18:46)
[2017-10-23] MEDS ORDERED: PROCHLORPERAZINE 10 MG/2 ML VIAL IVP PRN (19:01)
[2017-10-23] MEDS: FAMOTIDINE 20 MG/50 ML 50 ML IV SCH (20:56)
[2017-10-24] MEDS: INSULIN REGULAR HUMAN 100 UNIT/1 ML 10 ML MDV SUBQ SCH ×4 (00:03→18:44)
[2017-10-24] MEDS: ENALAPRILAT 1.25 MG/ML VIAL IVP SCH ×4 (00:20→18:45)
[2017-10-24] MEDS: METOPROLOL 5 MG/5 ML VIAL IVP SCH ×4 (00:21→18:46)
[2017-10-24] MEDS: SODIUM CHLORIDE FLUSH 0.9% 10 ML SYRINGE IVP SCH ×3 (00:23→17:23)
[2017-10-24] MEDS: ACETAMINOPHEN 1,000 MG/100 ML 100 ML IV SCH ×4 (00:23→21:28)
[2017-10-24 05:13] LABS: BASOPHILS # (AUTO) 0.1 10^3/uL (0.0-0.1); BASOPHILS % (AUTO) 1.6 %; CALCIUM 7.8 mg/dL (8.5-10.3); CREATININE 0.8 mg/dL (0.4-1.0); EOSINOPHILS # (AUTO) 0.2 10^3/uL (0.0-0.7); HGB - HEMOGLOBIN 8.5 g/dL (12.0-16.0); LYMPHOCYTES # (AUTO) 1.1 10^3/uL (1.5-3.5); LYMPHOCYTES % (AUTO) 19.7 %; MEAN CORPUSCULAR HEMOGLOBIN 26.4 pg (27.0-31.0); MEAN CORPUSCULAR HGB CONC 32.7 g/dL (32.0-36.0); MEAN CORPUSCULAR VOLUME 80.7 fL (81.0-99.0); MEAN PLATELET VOLUME 7.9 fL (7.9-10.8); MONOCYTES # (AUTO) 0.4 10^3/uL (0.0-1.0); MONOCYTES % (AUTO) 7.6 %; NEUTROPHILS # (AUTO) 3.9 10^3/uL (1.5-6.6); NEUTROPHILS % (AUTO) 68.1 %; PLT - PLATELET COUNT 202 10^3/uL (130-450); WHITE BLOOD COUNT 5.7 x10^3/uL (4.8-10.8)
[2017-10-24] MEDS: SODIUM CHLORIDE 0.9% 1,000 ML IV SCH (05:47)
[2017-10-24 06:21] LABS: HB2 TOTAL 8.8 g/dL; HEMOGLOBIN A1C 0.37 g/dL
[2017-10-24] MEDS: D5.45NS W/20 MEQ KCL 1,000 ML IV SCH ×2 (06:27→17:23)
[2017-10-24 07:04] LABS: PLATELET ESTIMATE, MANUAL NORMAL (130-450,000) (NORMAL)
[2017-10-24] MEDS: HYDROmorphone 1 MG/ML CARPUJECT IVP PRN (07:57)
--- NOTE | 2017-10-24 08:08 | PROVIDER PROGRESS NOTE ---
Subjective - Prog Note Date Prog Note Date: 10/24/17 Prog Note Time: 08:06 - Subjective Subjective: Her blood pressure overnight was initially high. Never could figure out if she took her beta-beverly yesterday morning or not. She denies any chest pain, cough, shortness of breath. She has been on IV lisinopril and IV metoprolol. Blood pressure went from 190 systolic down to the 160s and 170s systolic Her main complaint is nausea this morning. Pain is controlled. She denies chest pain, shortness of breath. Just really nauseated. Current Medications - Current Medications Current Medications: Active Medications Enalaprilat (Vasotec Inj) 1.25 mg IVP Q6HR BISHOP Last Admin: 10/24/17 05:47 Dose: 1.25 mg Hydromorphone HCl (Dilaudid Inj Syringe) 0.5 mg IVP Q2HR PRN PRN Reason: PAIN Last Admin: 10/23/17 12:15 Dose: 0.5 mg Hydromorphone HCl (Dilaudid Inj Carp) 1 mg IVP Q2H PRN PRN Reason: PAIN Last Admin: 10/24/17 07:57 Dose: 1 mg Famotidine (Pepcid 20 Mg/50 Ml) 50 mls @ 100 mls/hr IV BID BISHOP Last Infusion: 10/23/17 21:30 Dose: Infused Acetaminophen (Ofirmev) 100 mls @ 400 mls/hr IV Q6H BISHOP Last Infusion: 10/24/17 06:49 Dose: Infused Sodium Chloride (Normal Saline 0.9%) 1,000 mls @ 125 mls/hr IV .Q8H BISHOP Last Infusion: 10/24/17 06:37 Dose: Infused Potassium Chloride/Dextrose/Sod Cl (D5.45ns W/20 Meq Kcl) 1,000 mls @ 83.333 mls/hr IV .Q12H BISHOP Last Admin: 10/24/17 06:27 Dose: 83.333 mls/hr Insulin Human Regular (Novolin R) 1 - 9 unit SUBQ Q6HR BISHOP PRN Reason: Protocol Last Admin: 10/24/17 05:55 Dose: Not Given Metoprolol Tartrate (Lopressor Inj) 5 mg IVP Q6HR BISHOP Last Admin: 10/24/17 06:27 Dose: 5 mg Ondansetron HCl (Zofran Inj) 4 mg IVP Q6H PRN PRN Reason: Nausea / Vomiting Last Admin: 10/23/17 17:03 Dose: 4 mg Prochlorperazine Edisylate (Compazine Inj) 10 mg IVP Q4HR PRN PRN Reason: Nausea / Vomiting Sodium Chloride (Normal Saline Flush 0.9%) 10 ml IVP 0100,0900,1700 BISHOP Last Admin: 10/24/17 00:23 Dose: 10 ml Sodium Chloride (Normal Saline Flush 0.9%) 10 ml IVP PRN PRN PRN Reason: NEEDED PER PROVIDER ORDERS Last Admin: 10/23/17 17:34 Dose: 10 ml Terazosin [Hytrin] 5 mg PO BID 08/11/12 metFORMIN [Glucophage] 250 mg PO BID 08/11/12 Anastrozole 1 mg PO DAILY 10/06/12 Aspirin Chewable [[facility]iah Aspirin] 81 mg PO DAILY 10/06/12 Atorvastatin Calcium 20 mg PO DAILY 10/06/12 Calcium Carbonate/Vitamin D3 [Calcium 600 + D3 Softgel] 1 each PO DAILY Carvedilol [Coreg] 25 mg PO DAILY 10/06/12 Hydrochlorothiazide 25 mg PO DAILY 10/06/12 Levothyroxine [Synthroid] 0.175 mg PO QDAC 10/06/12 Losartan [Cozaar] 100 mg PO DAILY 10/06/12 Multivitamin [Multivitamins] 1 each PO DAILY 10/06/12 Potassium Chloride [Micro-K] 20 meq PO BIDWM 10/06/12 Glimepiride 4 mg PO DAILY 01/17/15 cloNIDine [Catapres] 0.1 mg PO QPM 01/17/15 Clopidogrel [Plavix] 75 mg PO DAILY 05/29/15 Oxybutynin Chloride [Ditropan Xl] 15 mg PO DAILY 10/23/17 Objective - Vital Signs/Intake & Output Reviewed Vital Signs: Yes Vital Signs: Vital Signs x48h Temp Pulse Resp BP BP Pulse Ox 10/24/17 08:00 36.4 C L 71 14 141/61 H 98 10/24/17 07:00 58 L 14 137/52 H 100 10/24/17 06:27 160/60 H 10/24/17 06:00 62 11 L 170/60 H 100 10/24/17 05:00 63 17 160/57 H 10/24/17 04:00 37.1 C 61 13 150/67 H 10/24/17 03:00 64 10 L 126/50 L 10/24/17 02:00 59 L 10 L 151/54 H 10/24/17 01:00 61 11 L 142/52 H 10/24/17 00:21 156/54 H Intake & Output: Intake & Output 10/21/17 10/22/17 10/23/17 10/24/17 23:59 23:59 23:59 23:59 Intake Total 4850 1052.083 Output Total 1340 520 Balance 3510 532.083 - Objective General Appearance: positive: Alert, Mild distress (From her nausea), Other ( Short statured moderately overweight white female who looks her stated age) Eyes Bilateral: positive: PERRL, EOMI ENT: positive: Dry mucous membranes Neck: positive: No JVD. negative: Stiff neck, Carotid bruit Respiratory: positive: Chest non-tender, Rales (Right mid and right lower lung that pop open with a deep breath. But she hates taking that deep breath.). negative: Wheezes, Rhonchi Cardiovascular: positive: Regular rate & rhythm. negative: Gallop/S4, Friction rub Abdomen: positive: Other (Slightly distended with air, no distention other than that. No bowel sounds yet. No flatus) Skin: positive: Warm, Dry, Pallor Extremities: positive: Full ROM, No pedal edema Neurologic/Psychiatric: positive: Oriented x3, CN's nml (2-12), Motor nml - Lab Results Fish Bones: 10/24/17 04:20 10/24/17 04:20 Other Labs: Lab Results x24hrs 10/24/17 10/24/17 10/24/17 Range/Units 05:53 04:20 04:20 WBC (4.8-10.8) x10^3/uL RBC (4.20-5.40) 10^6/uL Hgb (12.0-16.0) g/dL Hct (37.0-47.0) % MCV (81.0-99.0) fL MCH (27.0-31.0) pg MCHC (32.0-36.0) g/dL RDW (12.0-15.0) % Plt Count (130-450) 10^3/uL MPV (7.9-10.8) fL Neut # (Auto) (1.5-6.6) 10^3/uL Lymph # (Auto) (1.5-3.5) 10^3/uL [place] # (Auto) (0.0-1.0) 10^3/uL Eos # (Auto) (0.0-0.7) 10^3/uL Baso # (Auto) (0.0-0.1) 10^3/uL Absolute Nucleated RBC x10^3/uL Nucleated RBC % /100WBC Manual Slide Review Platelet Estimate (NORMAL) RBC Morph Micro Appear (NORMAL) Sodium 138 (135-145) mmol/L Potassium 3.1 L (3.5-5.0) mmol/L Chloride 106 (101-111) mmol/L Carbon Dioxide 25 (21-32) mmol/L Anion Gap 7.0 (6-13) BUN 12 (6-20) mg/dL Creatinine 0.8 (0.4-1.0) mg/dL Estimated GFR (MDRD) 69 L (>89) Glucose 74 (70-100) mg/dL POC Whole Bld Glucose 70 (70 - 100) mg/dL Glycated Hemoglobin 6.0 (4.6-6.2) % Estim Average Glucose 126 H (70-100) Calcium 7.8 L (8.5-10.3) mg/dL 10/24/17 10/23/17 10/23/17 Range/Units 04:20 16:51 12:05 WBC 5.7 (4.8-10.8) x10^3/uL RBC 3.20 L (4.20-5.40) 10^6/uL Hgb 8.5 L (12.0-16.0) g/dL Hct 25.8 L (37.0-47.0) % MCV 80.7 L (81.0-99.0) fL MCH 26.4 L (27.0-31.0) pg MCHC 32.7 (32.0-36.0) g/dL RDW 21.0 H (12.0-15.0) % Plt Count 202 (130-450) 10^3/uL MPV 7.9 (7.9-10.8) fL Neut # (Auto) 3.9 (1.5-6.6) 10^3/uL Lymph # (Auto) 1.1 L (1.5-3.5) 10^3/uL [place] # (Auto) 0.4 (0.0-1.0) 10^3/uL Eos # (Auto) 0.2 (0.0-0.7) 10^3/uL Baso # (Auto) 0.1 (0.0-0.1) 10^3/uL Absolute Nucleated RBC 0.00 x10^3/uL Nucleated RBC % 0.0 /100WBC Manual Slide Review Indicated Platelet Estimate NORMAL (130-450,000) (NORMAL) RBC Morph Micro Appear 1+ HYPOCHROMASIA (NORMAL) Sodium (135-145) mmol/L Potassium (3.5-5.0) mmol/L Chloride (101-111) mmol/L Carbon Dioxide (21-32) mmol/L Anion Gap (6-13) BUN (6-20) mg/dL Creatinine (0.4-1.0) mg/dL Estimated GFR (MDRD) (>89) Glucose (70-100) mg/dL POC Whole Bld Glucose 136 H 158 H (70 - 100) mg/dL Glycated Hemoglobin (4.6-6.2) % Estim Average Glucose (70-100) Calcium (8.5-10.3) mg/dL 10/23/17 Range/Units 09:44 WBC (4.8-10.8) x10^3/uL RBC (4.20-5.40) 10^6/uL Hgb (12.0-16.0) g/dL Hct (37.0-47.0) % MCV (81.0-99.0) fL MCH (27.0-31.0) pg MCHC (32.0-36.0) g/dL RDW (12.0-15.0) % Plt Count (130-450) 10^3/uL MPV (7.9-10.8) fL Neut # (Auto) (1.5-6.6) 10^3/uL Lymph # (Auto) (1.5-3.5) 10^3/uL [place] # (Auto) (0.0-1.0) 10^3/uL Eos # (Auto) (0.0-0.7) 10^3/uL Baso # (Auto) (0.0-0.1) 10^3/uL Absolute Nucleated RBC x10^3/uL Nucleated RBC % /100WBC Manual Slide Review Platelet Estimate (NORMAL) RBC Morph Micro Appear (NORMAL) Sodium (135-145) mmol/L Potassium (3.5-5.0) mmol/L Chloride (101-111) mmol/L Carbon Dioxide (21-32) mmol/L Anion Gap (6-13) BUN (6-20) mg/dL Creatinine (0.4-1.0) mg/dL Estimated GFR (MDRD) (>89) Glucose (70-100) mg/dL POC Whole Bld Glucose 118 H (70 - 100) mg/dL Glycated Hemoglobin (4.6-6.2) % Estim Average Glucose (70-100) Calcium (8.5-10.3) mg/dL ABX Reporting Has patient been on IV antibiotics over the past 48 hours?: Yes Assessment/Plan - Problem List (1) Colon cancer Impression: Colon ca s/p lap R hemicoloectomy 10/23: history of baseline iron deficiency anemia from colon ca, preop H&H 10/.3%. POD #1 * Today's Hgb 8.5 * monitor for s/s of bleeding in ICU overnight * transfuse for hgb <8 as opposed to ususal goal of >7 because of her carotid stenosis and hx of CAD. * postoperative orders per general surgery to be done for pain, diet. * 2. Diabetes type 2: on home glimepiride and metformin, will follow up on PCP record for recent hgbA1C * hold home oral antiglycemics * NPO per surgery, * NPO medium dose SSI * q6h blood glucose checks reviewed * D5 with 0.45NS and 20 meq/K to be continued. Selected Entries 10/23/17 10/23/17 10/23/17 06:40 07:10 12:20 Result (mg/dL) 90 90 158 10/23/17 10/24/17 10/24/17 16:53 00:00 00:03 Result (mg/dL) 136 104 104 10/24/17 10/24/17 05:55 05:59 Result (mg/dL) 70 70 * 3. HTN: on losartan, carvedilol, and hctz. pt unsure if she took BB morning before surgery, preoperative directions for her to take. Hypertensive with SBPs 170-190s on arrival to ICU. * hold home antihypertensives while NPO * IV vasotec scheduled and IV metoprolol started when BP still too high. * clonidine is being used for prn hot flashes, it appears, and not her HTN. Will not use that for now 4. Hyperlipidemia: home dose of atorvastatin 20mg. Hold while NPO. Consider increasing atorvastatin dose to high intensity on discharge given known CAD (+ MPS in 2017) and 75% L carotid artery stenosis. 5. Coronary Artery Disease: see above. Hold ASA. She doesn't know why she's on Plavix. Will hold while she's here. So far no chest pain. 6. Hypothyroidism: hold levothyroxine while NPO 7. Breast Cancer: reportedly just finished 5 year course of anastrozole. 8. Urinary 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: on oxybutynin and terazosin at home, hold while NPO. Indwelling urinary catheter in place. 9. DVT prophylaxis is SCD's and Asaf gottlieb. If we need lovenox, that would be started today per surgery. 10. Hypokalemia: on electrolyte replacement protocol.
[2017-10-24 08:37] LABS: ALBUMIN 2.4 g/dL (3.2-5.5); MAGNESIUM 1.5 mg/dL (1.7-2.8); PHOSPHORUS 3.7 mg/dL (2.5-4.6)
[2017-10-24] MEDS: FAMOTIDINE 20 MG/50 ML 50 ML IV SCH ×2 (08:37→20:19)
[2017-10-24] MEDS ORDERED: MAGNESIUM SULFATE 2 GRAM 2 GM/50 ML BAG IV ONE (08:56)
[2017-10-24] MEDS: SODIUM CHLORIDE FLUSH 0.9% 10 ML SYRINGE IVP PRN (09:20)
[2017-10-24] MEDS: ONDANSETRON 4 MG/2 ML VIAL IVP PRN (09:20)
[2017-10-24] MEDS: POTASSIUM CHLOR 10 MEQ/100 ML 10 MEQ/100 ML BAG IV SCH ×4 (10:54→14:42)
[2017-10-24] MEDS ORDERED: SODIUM CHLORIDE 0.9% 1,000 ML IV SCH (11:50)
[2017-10-24] MEDS: NS W/20 MEQ KCL 1,000 ML IV SCH ×2 (11:57→21:28)
[2017-10-24 14:56] LABS: HGB - HEMOGLOBIN 9.9 g/dL (12.0-16.0)
[2017-10-24] MEDS: LORazepam 2 MG/ML VIAL IVP PRN ×2 (16:00→19:00)
[2017-10-24] MEDS ORDERED: HALOPERIDOL 5 MG/ML VIAL IVP ONE (16:19)
[2017-10-24] MEDS: risperiDONE 0.25 MG TABLET PO SCH ×2 (17:28→21:28)
[2017-10-25] MEDS: ENALAPRILAT 1.25 MG/ML VIAL IVP SCH ×3 (00:12→12:50)
[2017-10-25] MEDS: INSULIN REGULAR HUMAN 100 UNIT/1 ML 10 ML MDV SUBQ SCH ×4 (00:12→19:04)
[2017-10-25] MEDS: METOPROLOL 5 MG/5 ML VIAL IVP SCH ×3 (00:13→12:53)
[2017-10-25] MEDS: SODIUM CHLORIDE FLUSH 0.9% 10 ML SYRINGE IVP SCH ×3 (02:21→18:46)
[2017-10-25] MEDS: LORazepam 2 MG/ML VIAL IVP PRN (02:29)
[2017-10-25] MEDS ORDERED: risperiDONE 0.25 MG TABLET PO SCH (03:00)
[2017-10-25] MEDS: ACETAMINOPHEN 1,000 MG/100 ML 100 ML IV SCH ×4 (03:13→19:34)
[2017-10-25 05:15] LABS: BASOPHILS % (AUTO) 0.4 %; EOSINOPHILS # (AUTO) 0.2 10^3/uL (0.0-0.7); EOSINOPHILS % (AUTO) 3.6 %; HGB - HEMOGLOBIN 8.3 g/dL (12.0-16.0); LYMPHOCYTES # (AUTO) 0.8 10^3/uL (1.5-3.5); LYMPHOCYTES % (AUTO) 12.8 %; MEAN CORPUSCULAR HEMOGLOBIN 25.8 pg (27.0-31.0); MEAN CORPUSCULAR VOLUME 80.8 fL (81.0-99.0); MONOCYTES # (AUTO) 0.5 10^3/uL (0.0-1.0); MONOCYTES % (AUTO) 7.9 %; NEUTROPHILS # (AUTO) 4.7 10^3/uL (1.5-6.6); NEUTROPHILS % (AUTO) 75.3 %; PLT - PLATELET COUNT 197 10^3/uL (130-450); RED BLOOD COUNT 3.22 10^6/uL (4.20-5.40); WHITE BLOOD COUNT 6.2 x10^3/uL (4.8-10.8)
[2017-10-25 05:16] LABS: ALBUMIN 2.2 g/dL (3.2-5.5); CALCIUM 7.9 mg/dL (8.5-10.3); CREATININE 0.7 mg/dL (0.4-1.0); MAGNESIUM 1.9 mg/dL (1.7-2.8)
[2017-10-25 05:27] LABS: RED CELL DISTRIBUTION WIDTH 20.5 % (12.0-15.0)
[2017-10-25] MEDS ORDERED: POTASSIUM PHOSPHATE 15 MMOL in SODIUM CHLORIDE 0.9% 250 ML IV ONE (08:00)
[2017-10-25] MEDS: NS W/20 MEQ KCL 1,000 ML IV SCH ×3 (08:02→20:35)
[2017-10-25] MEDS: FAMOTIDINE 20 MG/50 ML 50 ML IV SCH ×2 (08:03→20:35)
[2017-10-25] MEDS ORDERED: MORPHINE 2 MG/ML SYRINGE IVP PRN (11:49)
--- NOTE | 2017-10-25 11:50 | PROVIDER PROGRESS NOTE ---
Subjective - Prog Note Date Prog Note Date: 10/25/17 Prog Note Time: 11:52 - Subjective Subjective: Yesterday she became quite confused. Belligerent. Wanted to pull out all of her lines. Did not know where she was. Was telling me that she had "changed her mind". Wanted us to put all of the stuff "back in that we took out". I gave her Ativan with no response. Then I gave her Haldol yesterday. Risperdal last night. Today she is still a little confused but much more cooperative. Nursing had an excellent response to her confusion. She just desperately wanted to get up and walk around and they walked her in the hallways. She had a bowel movement yesterday and a bowel movement today. Pain is controlled. reports that she did this with her last surgery Current Medications - Current Medications Current Medications: Active Medications Enalaprilat (Vasotec Inj) 1.25 mg IVP Q6HR [facility] Last Admin: 10/25/17 06:11 Dose: 1.25 mg Famotidine (Pepcid 20 Mg/50 Ml) 50 mls @ 100 mls/hr IV BID [facility] Last Infusion: 10/25/17 09:23 Dose: Infused Acetaminophen (Ofirmev) 100 mls @ 400 mls/hr IV Q6H [facility] Last Infusion: 10/25/17 09:22 Dose: Infused Potassium Chloride/Sodium Chloride (Normal Saline 0.9% W/20 Meq Kcl) 1,000 mls @ 100 mls/hr IV .Q10H [facility] Last Admin: 10/25/17 08:02 Dose: 100 mls/hr Potassium Phosphate 15 mmol/ (Sodium Chloride) 255 mls @ 63 mls/hr IV ONCE ONE PRN Reason: Protocol Stop: 10/25/17 12:02 Last Admin: 10/25/17 08:03 Dose: 63 mls/hr Insulin Human Regular (Novolin R) 1 - 9 unit SUBQ Q6HR [facility] PRN Reason: Protocol Last Admin: 10/25/17 06:11 Dose: Not Given Lorazepam (Ativan Inj (Vial)) 0.5 mg IVP Q2H PRN PRN Reason: Anxiety Last Admin: 10/25/17 02:29 Dose: 0.5 mg Metoprolol Tartrate (Lopressor Inj) 5 mg IVP Q6HR [facility] Last Admin: 10/25/17 06:11 Dose: 5 mg Morphine Sulfate (Morphine) 2 mg IVP Q2H PRN PRN Reason: PAIN Ondansetron HCl (Zofran Inj) 4 mg IVP Q6H PRN PRN Reason: Nausea / Vomiting Last Admin: 10/24/17 09:20 Dose: 4 mg Prochlorperazine Edisylate (Compazine Inj) 10 mg IVP Q4HR PRN PRN Reason: Nausea / Vomiting Last Admin: 10/24/17 10:54 Dose: 10 mg Risperidone (Risperdal) 0.25 mg PO QPM [facility] Last Admin: 10/24/17 21:28 Dose: 0.25 mg Sodium Chloride (Normal Saline Flush 0.9%) 10 ml IVP 0100,0900,1700 [facility] Last Admin: 10/25/17 08:03 Dose: 10 ml Sodium Chloride (Normal Saline Flush 0.9%) 10 ml IVP PRN PRN PRN Reason: NEEDED PER PROVIDER ORDERS Last Admin: 10/24/17 09:20 Dose: 10 ml Terazosin [Hytrin] 5 mg PO BID 08/11/12 metFORMIN [Glucophage] 250 mg PO BID 08/11/12 Anastrozole 1 mg PO DAILY 10/06/12 Aspirin Chewable [[facility] Aspirin] 81 mg PO DAILY 10/06/12 Atorvastatin Calcium 20 mg PO DAILY 10/06/12 Calcium Carbonate/Vitamin D3 [Calcium 600 + D3 Softgel] 1 each PO BID 10/06/12 Carvedilol [Coreg] 25 mg PO BID 10/06/12 Hydrochlorothiazide 25 mg PO DAILY 10/06/12 Levothyroxine [Synthroid] 0.175 mg PO QDAC 10/06/12 Losartan [Cozaar] 100 mg PO DAILY 10/06/12 Multivitamin [Multivitamins] 1 each PO DAILY 10/06/12 Potassium Chloride [Micro-K] 20 meq PO BIDWM 10/06/12 Glimepiride 8 mg PO DAILY 01/17/15 cloNIDine [Catapres] 0.1 mg PO QPM 01/17/15 Clopidogrel [Plavix] 75 mg PO DAILY 05/29/15 Oxybutynin Chloride [Ditropan Xl] 15 mg PO DAILY 10/23/17 Objective - Vital Signs/Intake & Output Reviewed Vital Signs: Yes Vital Signs: Vital Signs x48h Temp Pulse Resp BP BP Pulse Ox 10/25/17 10:00 90 16 132/92 H 98 10/25/17 09:40 88 18 147/58 H 98 10/25/17 09:00 80 16 174/79 H 96 10/25/17 08:00 36.4 C L 74 20 154/90 H 100 10/25/17 07:00 66 16 140/53 H 100 10/25/17 06:11 137/57 H 10/25/17 06:00 68 16 137/57 H 98 10/25/17 05:00 71 16 131/53 H 99 10/25/17 04:00 71 16 129/48 L 92 Intake & Output: Intake & Output 10/22/17 10/23/17 10/24/17 10/25/17 23:59 23:59 23:59 23:59 Intake Total 4850 3333.750 1250 Output Total 1340 1639 1085 Balance 3510 1694.750 165 - Objective General Appearance: positive: No acute distress, Alert Eyes Bilateral: positive: PERRL ENT: positive: Pharynx nml Neck: positive: No JVD. negative: Stiff neck, Carotid bruit Respiratory: positive: Chest non-tender, Rales. negative: Wheezes, Rhonchi Cardiovascular: positive: Regular rate & rhythm. negative: Gallop/S4, Friction rub Abdomen: positive: No organomegaly, Nml bowel sounds, No distention, Tenderness. negative: Guarding, Rebound Skin: positive: Warm, Dry, Pallor Extremities: positive: Full ROM, Pedal edema (minimal) Neurologic/Psychiatric: positive: CN's nml (2-12), Motor nml, Disoriented to place, Disoriented to time. negative: Facial droop, Slurred/abnml speech - Lab Results Fish Bones: 10/25/17 04:25 10/25/17 04:25 Other Labs: Lab Results x24hrs 10/25/17 10/25/17 10/25/17 Range/Units 06:06 04:25 04:25 WBC 6.2 (4.8-10.8) x10^3/uL RBC 3.22 L (4.20-5.40) 10^6/uL Hgb 8.3 L (12.0-16.0) g/dL Hct 26.0 L (37.0-47.0) % MCV 80.8 L (81.0-99.0) fL MCH 25.8 L (27.0-31.0) pg MCHC 32.0 (32.0-36.0) g/dL RDW 20.5 H (12.0-15.0) % Plt Count 197 (130-450) 10^3/uL MPV 8.0 (7.9-10.8) fL Neut # (Auto) 4.7 (1.5-6.6) 10^3/uL Lymph # (Auto) 0.8 L (1.5-3.5) 10^3/uL Levy # (Auto) 0.5 (0.0-1.0) 10^3/uL Eos # (Auto) 0.2 (0.0-0.7) 10^3/uL Baso # (Auto) 0.0 (0.0-0.1) 10^3/uL Absolute Nucleated RBC 0.00 x10^3/uL Nucleated RBC % 0.0 /100WBC Sodium 138 (135-145) mmol/L Potassium 3.6 (3.5-5.0) mmol/L Chloride 109 (101-111) mmol/L Carbon Dioxide 25 (21-32) mmol/L Anion Gap 4.0 L (6-13) BUN 8 (6-20) mg/dL Creatinine 0.7 (0.4-1.0) mg/dL Estimated GFR (MDRD) 81 L (>89) Glucose 80 (70-100) mg/dL POC Whole Bld Glucose 75 (70 - 100) mg/dL Calcium 7.9 L (8.5-10.3) mg/dL Phosphorus 2.0 L (2.5-4.6) mg/dL Magnesium 1.9 (1.7-2.8) mg/dL Albumin 2.2 L (3.2-5.5) g/dL 10/25/17 10/24/17 10/24/17 Range/Units 02:10 18:41 14:43 WBC (4.8-10.8) x10^3/uL RBC (4.20-5.40) 10^6/uL Hgb 9.9 L (12.0-16.0) g/dL Hct 30.9 L (37.0-47.0) % MCV (81.0-99.0) fL MCH (27.0-31.0) pg MCHC (32.0-36.0) g/dL RDW (12.0-15.0) % Plt Count (130-450) 10^3/uL MPV (7.9-10.8) fL Neut # (Auto) (1.5-6.6) 10^3/uL Lymph # (Auto) (1.5-3.5) 10^3/uL Levy # (Auto) (0.0-1.0) 10^3/uL Eos # (Auto) (0.0-0.7) 10^3/uL Baso # (Auto) (0.0-0.1) 10^3/uL Absolute Nucleated RBC x10^3/uL Nucleated RBC % /100WBC Sodium (135-145) mmol/L Potassium (3.5-5.0) mmol/L Chloride (101-111) mmol/L Carbon Dioxide (21-32) mmol/L Anion Gap (6-13) BUN (6-20) mg/dL Creatinine (0.4-1.0) mg/dL Estimated GFR (MDRD) (>89) Glucose (70-100) mg/dL POC Whole Bld Glucose 71 123 H (70 - 100) mg/dL Calcium (8.5-10.3) mg/dL Phosphorus (2.5-4.6) mg/dL Magnesium (1.7-2.8) mg/dL Albumin (3.2-5.5) g/dL 10/24/17 Range/Units 11:56 WBC (4.8-10.8) x10^3/uL RBC (4.20-5.40) 10^6/uL Hgb (12.0-16.0) g/dL Hct (37.0-47.0) % MCV (81.0-99.0) fL MCH (27.0-31.0) pg MCHC (32.0-36.0) g/dL RDW (12.0-15.0) % Plt Count (130-450) 10^3/uL MPV (7.9-10.8) fL Neut # (Auto) (1.5-6.6) 10^3/uL Lymph # (Auto) (1.5-3.5) 10^3/uL Levy # (Auto) (0.0-1.0) 10^3/uL Eos # (Auto) (0.0-0.7) 10^3/uL Baso # (Auto) (0.0-0.1) 10^3/uL Absolute Nucleated RBC x10^3/uL Nucleated RBC % /100WBC Sodium (135-145) mmol/L Potassium (3.5-5.0) mmol/L Chloride (101-111) mmol/L Carbon Dioxide (21-32) mmol/L Anion Gap (6-13) BUN (6-20) mg/dL Creatinine (0.4-1.0) mg/dL Estimated GFR (MDRD) (>89) Glucose (70-100) mg/dL POC Whole Bld Glucose 140 H (70 - 100) mg/dL Calcium (8.5-10.3) mg/dL Phosphorus (2.5-4.6) mg/dL Magnesium (1.7-2.8) mg/dL Albumin (3.2-5.5) g/dL ABX Reporting Has patient been on IV antibiotics over the past 48 hours?: No Assessment/Plan - Problem List (1) Colon cancer Impression: Colon ca s/p lap R hemicoloectomy 10/23: history of baseline iron deficiency anemia from colon ca, preop H&H 01/27.3%. POD #2. Has had BM. * Today's Hgb 8.3 and stable * monitor for s/s of bleeding in ICU . Still in ICU. Can come out at order of General Surgery. * transfuse for hgb <8 as opposed to ususal goal of >7 because of her carotid stenosis and hx of CAD. * postoperative orders per general surgery to be done for pain, diet. * 2. Diabetes type 2: on home glimepiride and metformin, will follow up on PCP record for recent hgbA1C * hold home oral antiglycemics * NPO per surgery, but with BM hope she can go to clears today. * NPO medium dose SSI will change to po SSI once eating. * q6h blood glucose checks reviewed * D5 with 0.45NS and 20 meq/K to be continued. 3. HTN: on losartan, carvedilol, and hctz. pt unsure if she took BB morning before surgery, preoperative directions for her to take. Hypertensive with SBPs 170-190s on arrival to ICU. * held home antihypertensives while NPO and hope Surgery changed her to clears today so I can change to oral home meds. * IV vasotec scheduled and IV metoprolol started when BP still too high. * clonidine is being used for prn hot flashes, it appears, and not her HTN. Will not use that for now 4. Hyperlipidemia: home dose of atorvastatin 20mg. Hold while NPO. Again hope to resume today. Consider increasing atorvastatin dose to high intensity on discharge given known CAD (+MPS in 2017) and 75% L carotid artery stenosis. 5. Coronary Artery Disease: see above. Hold ASA. She doesn't know why she's on Plavix. Will hold until she's po. So far no chest pain. 6. Hypothyroidism: resume levothyroxine when po 7. Breast Cancer: reportedly just finished 5 year course of anastrozole. 8. Urinary 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: on oxybutynin and terazosin at home, resuem when po. Indwelling urinary catheter in place. Hope that stops today. 9. DVT prophylaxis is SCD's and Asaf gottlieb. If we need lovenox, that would be started today per surgery. 10. Hypokalemia: on electrolyte replacement protocol. 11. Postoperative confusion from meds, anesthesia. Better today. *
[2017-10-25] MEDS ORDERED: HALOPERIDOL 5 MG/ML VIAL IVP ONE (19:26)
[2017-10-25] MEDS: CARVEDILOL 12.5 MG TABLET PO SCH (20:42)
[2017-10-25] MEDS: TERAZOSIN 5 MG CAPSULE PO SCH (20:43)
[2017-10-25] MEDS: risperiDONE 0.25 MG TABLET PO SCH (20:43)
[2017-10-25] MEDS ORDERED: ATORVASTATIN 10 MG TABLET PO SCH (21:00)
[2017-10-25] MEDS: INSULIN ASPART 300 UNIT/3 ML PEN SUBQ SCH (21:31)
[2017-10-26] MEDS: ACETAMINOPHEN 1,000 MG/100 ML 100 ML IV SCH ×2 (01:51→06:35)
[2017-10-26] MEDS: SODIUM CHLORIDE FLUSH 0.9% 10 ML SYRINGE IVP SCH ×2 (01:52→07:58)
--- NOTE | 2017-10-26 04:23 | OPERATIVE REPORT ---
DATE OF SERVICE: 10/23/2017 Physician: King Degroot MD PREOPERATIVE DIAGNOSIS: Near obstructing right colon cancer. POSTOPERATIVE DIAGNOSIS: Near obstructing right colon cancer. PROCEDURE PERFORMED: Laparoscopic right hemicolectomy. OPERATING SURGEON: King Degroot MD. SENIOR PAYROLL ADMINISTRATOR: Neil Degroot MD. ANESTHESIA: General. INDICATIONS FOR PROCEDURE: The patient is a 77-year-old female who had underwent a colonoscopy. She was found to have a near obstructing lesion in the right colon. She had a PET scan, which did not reveal any abnormalities other than the right colon cancer. FINDINGS AT SURGERY: The patient had a distal near obstructing right colon cancer. The patient did have mildly enlarged lymph nodes. The patient's liver appeared to be normal. The patient's right colon was quite dilated secondary to the tumor causing stenosis of the right colon. PROCEDURE: After informed consent was obtained, the patient was taken to the operating room and placed in supine position. General endotracheal anesthesia was then administered. The patient's abdomen was then prepped and draped in usual sterile fashion. Prior to making an abdominal incision, the skin was injected with local anesthesia. The incision was then made in the right upper quadrant. A 5-mm Optiview trocar was inserted through the incision, through the fascia and into the abdominal cavity under direct vision. The abdomen was then insufflated. Looking inside, no injuries were noted. A second 5-mm port was then placed in the left lower quadrant and a 12-mm port placed at the infraumbilical area. Looking inside, the patient had a mass in the distal right colon that had been previously marked with dye. The patient's liver appeared to be normal. There were adhesions to the cecum, to the small intestine. This is most likely secondary to removal of a large polyp in the past. These adhesions were taken down using LigaSure cautery device with care, avoiding injury to the bowel. This allowed access to the ileocolic vessels. An opening was then made in the mesentery at its base. Care was taken to avoid injury to the duodenum, which was dissected free. A ELLE 60 stapling device was then placed across the mesentery of the vessels, stapling and dividing it. Next, the right retroperitoneum was then dissected mobilizing the right colon up to the hepatic flexure. The greater omentum was then removed from the proximal transverse colon using the LigaSure cautery device. The splenic flexure was then taken down, again using the LigaSure cautery device, ensuring adequate margins where the tumor was. The ligament of Toldt was then incised going down the right colon, fully mobilizing it. The mesentery of the appendix was then divided using the LigaSure cautery device, completing the right colon mobilization. The incision at the umbilicus was then enlarged in order to remove the specimen. The incision had been carried through the umbilicus and above it. The lesion was quite large, measuring over 4 cm. The right colon was then delivered through the incision after placement of a wound protecting device. A [id number] functional end-to-end ileocolonic anastomosis was then performed. An opening was then made in the mid transverse colon and in the proximal ileum. The ELLE 75 stapling device was then introduced into each of the lumens. The stapler was then engaged, creating a new anastomosis. A second ELLE 75 stapling device was then placed across the end, closing the distal end of the anastomosis. Any remaining mesentery of the transverse colon was then divided using the LigaSure cautery device, with the specimen then being removed. There appeared to be adequate lumen between the two ends of the bowel. The anastomosis was then returned back to the abdominal cavity. The anterior abdominal fascial layer was then closed using a running #1 PDS suture. The abdomen was then insufflated again. The right side was then irrigated. No bleeding was noted. The ports were then removed and the abdomen desufflated. The incisions were then closed using running 4-0 Monocryl subcuticular stitch. Dermabond was then applied to the incision sites. The patient was then awakened, extubated, and taken from the operating room in stable condition. ESTIMATED BLOOD LOSS: 100 mL. COMPLICATIONS: None. CONDITION OF THE PATIENT AT END OF PROCEDURE: Stable. SPECIMENS: Right colon. DRAINS and PACKS: None. CLASSIFICATION OF WOUND: Clean, contaminated. TD: 10/26/2017 00:10
[2017-10-26 06:21] LABS: ALBUMIN 2.5 g/dL (3.2-5.5); CREATININE 0.7 mg/dL (0.4-1.0); MAGNESIUM 1.7 mg/dL (1.7-2.8); PHOSPHORUS 2.1 mg/dL (2.5-4.6)
[2017-10-26 06:25] LABS: BASOPHILS % (AUTO) 0.4 %; EOSINOPHILS # (AUTO) 0.3 10^3/uL (0.0-0.7); EOSINOPHILS % (AUTO) 4.5 %; HGB - HEMOGLOBIN 8.8 g/dL (12.0-16.0); LYMPHOCYTES # (AUTO) 0.9 10^3/uL (1.5-3.5); LYMPHOCYTES % (AUTO) 13.9 %; MEAN CORPUSCULAR HEMOGLOBIN 25.9 pg (27.0-31.0); MEAN CORPUSCULAR HGB CONC 31.9 g/dL (32.0-36.0); MEAN CORPUSCULAR VOLUME 81.1 fL (81.0-99.0); MEAN PLATELET VOLUME 8.1 fL (7.9-10.8); MONOCYTES # (AUTO) 0.5 10^3/uL (0.0-1.0); MONOCYTES % (AUTO) 7.7 %; NEUTROPHILS # (AUTO) 4.7 10^3/uL (1.5-6.6); NEUTROPHILS % (AUTO) 73.5 %; PLT - PLATELET COUNT 207 10^3/uL (130-450); RED BLOOD COUNT 3.39 10^6/uL (4.20-5.40); RED CELL DISTRIBUTION WIDTH 21.2 % (12.0-15.0); WHITE BLOOD COUNT 6.4 x10^3/uL (4.8-10.8)
[2017-10-26] MEDS ORDERED: LEVOTHYROXINE 75 MCG TABLET PO SCH ×2 (07:00)
[2017-10-26] MEDS ORDERED: LEVOTHYROXINE 100 MCG TABLET PO SCH (07:00)
[2017-10-26 07:12] LABS: PLATELET ESTIMATE, MANUAL NORMAL (130-450,000) (NORMAL); PLATELET MORPHOLOGY NORMAL APPEARANCE (NORMAL)
[2017-10-26] MEDS ORDERED: D5NS W/20 MEQ KCL 1,000 ML IV STA (07:39)
--- NOTE | 2017-10-26 07:54 | PROVIDER PROGRESS NOTE ---
Subjective - Prog Note Date Prog Note Date: 10/26/17 Prog Note Time: 07:40 - Subjective Subjective: Sitting upright in the bed, eating a full breakfast of eggs and toast. No nausea, no abdominal pain. She is apologetic about her confusion for the last 2 nights. Last night she required Haldol again. She does know what happens to her. She does know that habits are every time she is in the hospital. She denies chest pain, palpitations, shortness of breath. No leg edema. No leg pain. Current Medications - Current Medications Current Medications: Active Medications Acetaminophen (Tylenol) 650 mg PO Q4HR PRN PRN Reason: Pain or Fever > 38C (100.4F) Hydrocodone Bitart/Acetaminophen ([place] 5/325) 1 tab PO Q4HR PRN PRN Reason: PAIN Hydrocodone Bitart/Acetaminophen ([place] 5/325) 2 tab PO Q4HR PRN PRN Reason: PAIN Aspirin ([place] Aspirin) 81 mg PO DAILY [facility] Last Admin: 10/26/17 08:35 Dose: 81 mg Atorvastatin Calcium (Lipitor) 20 mg PO QPM [facility] Last Admin: 10/25/17 20:43 Dose: 20 mg Carvedilol (Coreg) 25 mg PO BID [facility] Last Admin: 10/26/17 08:35 Dose: 25 mg Glimepiride (Amaryl) 8 mg PO DAILYWM [facility] Last Admin: 10/26/17 08:34 Dose: 8 mg Famotidine (Pepcid 20 Mg/50 Ml) 50 mls @ 100 mls/hr IV BID [facility] Last Infusion: 10/26/17 09:23 Dose: Infused Potassium Chloride/Dextrose/Sod Cl () 1,000 mls @ 83.333 mls/hr IV .Q12H STA Stop: 10/26/17 19:38 Last Admin: 10/26/17 09:23 Dose: Not Given Insulin Aspart (Novolog) 2 - 10 unit SUBQ 0800,1200,1700,2100 [facility] PRN Reason: Protocol Last Admin: 10/26/17 07:58 Dose: Not Given Levothyroxine Sodium (Synthroid) 75 mcg PO QDAC [facility] Last Admin: 10/26/17 06:35 Dose: 75 mcg Levothyroxine Sodium (Synthroid) 100 mcg PO QDAC [facility] Last Admin: 10/26/17 06:35 Dose: 100 mcg Lorazepam (Ativan Inj (Vial)) 0.5 mg IVP Q2H PRN PRN Reason: Anxiety Last Admin: 10/25/17 02:29 Dose: 0.5 mg Losartan Potassium (Cozaar) 100 mg PO DAILY [facility] Last Admin: 10/26/17 08:34 Dose: 100 mg Morphine Sulfate (Morphine) 2 mg IVP Q2H PRN PRN Reason: PAIN Ondansetron HCl (Zofran Inj) 4 mg IVP Q6H PRN PRN Reason: Nausea / Vomiting Last Admin: 10/24/17 09:20 Dose: 4 mg Oxybutynin Chloride ([Ditropan Xl] 15 Mg) 1 each PO DAILY [facility] Last Admin: 10/26/17 10:26 Dose: Not Given Prochlorperazine Edisylate (Compazine Inj) 10 mg IVP Q4HR PRN PRN Reason: Nausea / Vomiting Last Admin: 10/24/17 10:54 Dose: 10 mg Risperidone (Risperdal) 0.25 mg PO QPM [facility] Last Admin: 10/25/17 20:43 Dose: 0.25 mg Sodium Chloride (Normal Saline Flush 0.9%) 10 ml IVP 0100,0900,1700 [facility] Last Admin: 10/26/17 07:58 Dose: Not Given Sodium Chloride (Normal Saline Flush 0.9%) 10 ml IVP PRN PRN PRN Reason: NEEDED PER PROVIDER ORDERS Last Admin: 10/24/17 09:20 Dose: 10 ml Terazosin HCl (Hytrin) 5 mg PO BID [facility] Last Admin: 10/26/17 08:35 Dose: 5 mg Terazosin [Hytrin] 5 mg PO BID 08/11/12 metFORMIN [Glucophage] 250 mg PO BID 08/11/12 Anastrozole 1 mg PO DAILY 10/06/12 Aspirin Chewable [[place] Aspirin] 81 mg PO DAILY 10/06/12 Atorvastatin Calcium 20 mg PO DAILY 10/06/12 Calcium Carbonate/Vitamin D3 [Calcium 600 + D3 Softgel] 1 each PO BID 10/06/12 Carvedilol [Coreg] 25 mg PO BID 10/06/12 Hydrochlorothiazide 25 mg PO DAILY 10/06/12 Levothyroxine [Synthroid] 0.175 mg PO QDAC 10/06/12 Losartan [Cozaar] 100 mg PO DAILY 10/06/12 Multivitamin [Multivitamins] 1 each PO DAILY 10/06/12 Potassium Chloride [Micro-K] 20 meq PO BIDWM 10/06/12 Glimepiride 8 mg PO DAILY 01/17/15 cloNIDine [Catapres] 0.1 mg PO QPM 01/17/15 Clopidogrel [Plavix] 75 mg PO DAILY 05/29/15 Oxybutynin Chloride [Ditropan Xl] 15 mg PO DAILY 10/23/17 Objective - Vital Signs/Intake & Output Reviewed Vital Signs: Yes Vital Signs: Vital Signs x48h Temp Pulse Resp BP Pulse Ox 10/26/17 06:00 63 16 153/67 H 97 10/26/17 04:01 36.5 C 69 16 151/66 H 99 10/26/17 00:19 36.5 C 77 16 138/52 H 96 Intake & Output: Intake & Output 10/23/17 10/24/17 10/25/17 10/26/17 23:59 23:59 23:59 23:59 Intake Total 4850 3333.750 4685.000 100 Output Total 1340 1639 3035 350 Balance 3510 9239.434 1676.000 -250 - Objective General Appearance: positive: No acute distress, Alert Eyes Bilateral: positive: PERRL, EOMI ENT: positive: Pharynx nml Neck: positive: No JVD. negative: Stiff neck, Carotid bruit Respiratory: positive: Chest non-tender. negative: Wheezes, Rales, Rhonchi Cardiovascular: positive: Regular rate & rhythm. negative: Gallop/S4, Friction rub Abdomen: positive: No organomegaly, Nml bowel sounds, No distention, Tenderness (Mild and at incision sites) Skin: positive: Warm, Dry, Pallor Extremities: positive: Full ROM, No pedal edema Neurologic/Psychiatric: positive: Oriented x3, CN's nml (2-12), Motor nml - Lab Results Fish Bones: 10/26/17 05:22 10/26/17 05:22 Other Labs: Lab Results x24hrs 10/26/17 10/26/17 10/26/17 Range/Units 07:33 05:22 05:22 WBC 6.4 (4.8-10.8) x10^3/uL RBC 3.39 L (4.20-5.40) 10^6/uL Hgb 8.8 L (12.0-16.0) g/dL Hct 27.5 L (37.0-47.0) % MCV 81.1 (81.0-99.0) fL MCH 25.9 L (27.0-31.0) pg MCHC 31.9 L (32.0-36.0) g/dL RDW 21.2 H (12.0-15.0) % Plt Count 207 (130-450) 10^3/uL MPV 8.1 (7.9-10.8) fL Neut # (Auto) 4.7 (1.5-6.6) 10^3/uL Lymph # (Auto) 0.9 L (1.5-3.5) 10^3/uL George # (Auto) 0.5 (0.0-1.0) 10^3/uL Eos # (Auto) 0.3 (0.0-0.7) 10^3/uL Baso # (Auto) 0.0 (0.0-0.1) 10^3/uL Absolute Nucleated RBC 0.00 x10^3/uL Nucleated RBC % 0.1 /100WBC Manual Slide Review Indicated Platelet Estimate NORMAL (130-450,000) (NORMAL) Platelet Morphology NORMAL APPEARANCE (NORMAL) RBC Morph Micro Appear 1+ POIKILOCYTOSIS (NORMAL) Sodium 139 (135-145) mmol/L Potassium 3.8 (3.5-5.0) mmol/L Chloride 110 (101-111) mmol/L Carbon Dioxide 25 (21-32) mmol/L Anion Gap 4.0 L (6-13) BUN 6 (6-20) mg/dL Creatinine 0.7 (0.4-1.0) mg/dL Estimated GFR (MDRD) 81 L (>89) Glucose 86 (70-100) mg/dL POC Whole Bld Glucose 90 (70 - 100) mg/dL Calcium 8.0 L (8.5-10.3) mg/dL Phosphorus 2.1 L (2.5-4.6) mg/dL Magnesium 1.7 (1.7-2.8) mg/dL Albumin 2.5 L (3.2-5.5) g/dL 10/25/17 10/25/17 Range/Units 21:24 12:09 WBC (4.8-10.8) x10^3/uL RBC (4.20-5.40) 10^6/uL Hgb (12.0-16.0) g/dL Hct (37.0-47.0) % MCV (81.0-99.0) fL MCH (27.0-31.0) pg MCHC (32.0-36.0) g/dL RDW (12.0-15.0) % Plt Count (130-450) 10^3/uL MPV (7.9-10.8) fL Neut # (Auto) (1.5-6.6) 10^3/uL Lymph # (Auto) (1.5-3.5) 10^3/uL George # (Auto) (0.0-1.0) 10^3/uL Eos # (Auto) (0.0-0.7) 10^3/uL Baso # (Auto) (0.0-0.1) 10^3/uL Absolute Nucleated RBC x10^3/uL Nucleated RBC % /100WBC Manual Slide Review Platelet Estimate (NORMAL) Platelet Morphology (NORMAL) RBC Morph Micro Appear (NORMAL) Sodium (135-145) mmol/L Potassium (3.5-5.0) mmol/L Chloride (101-111) mmol/L Carbon Dioxide (21-32) mmol/L Anion Gap (6-13) BUN (6-20) mg/dL Creatinine (0.4-1.0) mg/dL Estimated GFR (MDRD) (>89) Glucose (70-100) mg/dL POC Whole Bld Glucose 99 76 (70 - 100) mg/dL Calcium (8.5-10.3) mg/dL Phosphorus (2.5-4.6) mg/dL Magnesium (1.7-2.8) mg/dL Albumin (3.2-5.5) g/dL Assessment/Plan - Problem List (1) Colon cancer Impression: Colon ca s/p lap R hemicoloectomy 10/23: history of baseline iron deficiency anemia from colon ca, preop H&H 01/27.3%. POD #3. Has had BM. Is eating well. * Today's Hgb 8.8 and stable * monitor for s/s of bleeding in ICU . Came out of the ICU yesterday afternoon, on Med Surg. Discharge plan today by surgery * transfuse for hgb <8 as opposed to ususal goal of >7 because of her carotid stenosis and hx of CAD. * postoperative orders per general surgery to be done for pain, diet. * 2. Diabetes type 2: on home glimepiride and metformin, will follow up on PCP record for recent hgbA1C * resumed her oral antiglycemics except for metformin.She can resume her Metformin in the outpatient setting in about a week * Diet advanced to clears yesterday.Eating a regular diet this morning and it is being tolerated well * On po low dose SSI once eating.Sliding scale insulin will stop when she leaves the hospital and to resume glimepiride only * q6h blood glucose checks reviewed and NS w 20 meq K changed to D5.9 w 20 meq K to avoid hypoglycemia 3. HTN: on losartan, carvedilol, and hctz. pt unsure if she took BB morning before surgery, preoperative directions for her to take. Hypertensive with SBPs 170-190s on arrival to ICU. In the last 12 hours 138-178 systolic. * Changed to oral home meds. Case discussed with Dr. Deleon and he will see her in the next week * clonidine is being used for prn hot flashes, it appears, and not her HTN. Will not use that for now 4. Hyperlipidemia: home dose of atorvastatin 20mg. Hold while NPO. Again hope to resume today. Consider increasing atorvastatin dose to high intensity on discharge given known CAD (+MPS in 2017) and 75% L carotid artery stenosis. 5. Coronary Artery Disease: see above. Hold ASA. She doesn't know why she's on Plavix. Will hold until she's po. So far no chest pain. 6. Hypothyroidism: resumed levothyroxine 7. Breast Cancer: reportedly just finished 5 year course of anastrozole. 8. Urinary 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: on oxybutynin and terazosin at home, resumed. Indwelling urinary catheter was in place and discontinued. 9. DVT prophylaxis is SCD's and Asaf hose. If we need lovenox, that would be started today per surgery. she has been ambulating in the hallways. Very active for a post op patient. No lovenox ordered. 10. Hypokalemia: on electrolyte replacement protocol. 11. Postoperative confusion from meds, anesthesia. Better today. Spoke to Dr. Deleon and case discussed. She does have mild to moderate cognitive deficits at baseline. She did require Haldol again last night. She will not go home on that. Thank you very much for asking us to consult in the mutual care of this patient. We appreciate your confidence.
[2017-10-26] MEDS: INSULIN ASPART 300 UNIT/3 ML PEN SUBQ SCH ×2 (07:58→11:51)
[2017-10-26] MEDS ORDERED: GLIMEPIRIDE 2 MG TABLET PO SCH (08:00)
[2017-10-26] MEDS ORDERED: HYDROcod/ACETAM 5/325 MG TABLET PO PRN ×2 (08:24)
[2017-10-26] MEDS ORDERED: ACETAMINOPHEN 325 MG TABLET PO PRN (08:31)
[2017-10-26] MEDS: TERAZOSIN 5 MG CAPSULE PO SCH (08:35)
[2017-10-26] MEDS: CARVEDILOL 12.5 MG TABLET PO SCH (08:35)
[2017-10-26] MEDS: FAMOTIDINE 20 MG/50 ML 50 ML IV SCH (08:41)
[2017-10-26] MEDS ORDERED: ENOXAPARIN 40 MG/0.4 ML SYRINGE SUBQ SCH (09:00)
[2017-10-26] MEDS ORDERED: CLOPIDOGREL 75 MG TABLET PO SCH (09:00)
[2017-10-26] MEDS ORDERED: OXYBUTYNIN CHLORIDE 15 MG PO SCH (09:00)
[2017-10-26] MEDS ORDERED: ASPIRIN CHEW 81 MG TABLET PO SCH (09:00)
[2017-10-26] MEDS ORDERED: LOSARTAN 50 MG TABLET PO SCH (09:00)
[2017-10-26 15:57] VITALS: BP 170/65
--- NOTE | 2017-10-26 17:27 | Discharge Plan ---
Discharge Plan Disposition: Home, Self Care Condition: Stable Prescriptions: HYDROcod/ACETAM 325 [[place] 5/325] 1 tab PO Q4HR PRN #30 tablet PRN Reason: Pain Diet: Diabetic Activity Restrictions: no lifting over 15 lbs Shower Restrictions: No Driving Restrictions: Yes Assistance Devices: Walker Weight Bearing: Full Weight Additional Instructions or Follow Up instructions: Resume Plavix in 1 week Resume Metformin in 2 days Hold iron if upset stomach for next 2 days No Smoking: If you smoke, Please STOP! Call for help. Follow-up with: Jefry Deleon MD [Primary Care Provider] - 2 Weeks Neil Degroot MD [Provider Admit Priv/Credential] - 1 Week
--- NOTE | 2017-10-27 22:16 | PROVIDER PROGRESS NOTE ---
Subjective - General Admit Date: 10/23/17 - Review of Systems Wound/Incisions: positive: No drainage Pulmonary: positive: No symptoms Cardiovascular: positive: No symptoms Gastrointestinal: positive: Flatus All Other Systems: positive: Reviewed and negative Objective - Patient Data Weight: Weight 10/25/17 10/26/17 10/27/17 23:59 23:59 23:59 Weight (kg) 88.2 kg 89 kg Intake & Output: Intake and Output Totals x24h 10/25/17 10/26/17 10/27/17 23:59 23:59 23:59 Intake Total 4685.000 2502.16 Output Total 3035 350 Balance 3152.025 6688.16 - Lab Results Lab Results: 10/26/17 05:22 10/26/17 05:22 - Physical Exam Respiratory: positive: No respiratory distress Cardiovascular: positive: Regular rate & rhythm Abdomen: positive: Other (incision clean without infection) Impression/Plan - Problem List Problem List: s/p laparoscopic right hemicolectomy POD#1 Awake today -Mobilize patient -NPO/IV fluids.
--- NOTE | 2017-10-27 22:19 | PROVIDER PROGRESS NOTE ---
Subjective - General Admit Date: 10/23/17 - Review of Systems Wound/Incisions: positive: No drainage Pulmonary: positive: No symptoms Cardiovascular: positive: No symptoms Gastrointestinal: positive: Nausea (Nausea improving), Flatus, Other (small loose bowel movement) All Other Systems: positive: Reviewed and negative Objective - Patient Data Weight: Weight 10/25/17 10/26/17 10/27/17 23:59 23:59 23:59 Weight (kg) 88.2 kg 89 kg Intake & Output: Intake and Output Totals x24h 10/25/17 10/26/17 10/27/17 23:59 23:59 23:59 Intake Total 4685.000 2502.16 Output Total 3035 350 Balance 4495.248 5092.16 - Lab Results Lab Results: 10/26/17 05:22 10/26/17 05:22 - Physical Exam Respiratory: positive: No respiratory distress Cardiovascular: positive: Regular rate & rhythm Abdomen: positive: Other (incisions clean) Impression/Plan - Problem List Problem List: s/p laparoscopic right hemicolectomy POD#2. Bowel function returning Mild confusion overnight resolved currently -start liquids -ambulate -d/c leiva
--- NOTE | 2017-10-27 22:28 | PROVIDER PROGRESS NOTE ---
Subjective - General Admit Date: 10/23/17 - Review of Systems Wound/Incisions: positive: No drainage Pulmonary: positive: No symptoms Cardiovascular: positive: No symptoms Gastrointestinal: positive: Flatus, Other (small loose bowel movement) All Other Systems: positive: Reviewed and negative Objective - Patient Data Weight: Weight 10/25/17 10/26/17 10/27/17 23:59 23:59 23:59 Weight (kg) 88.2 kg 89 kg Intake & Output: Intake and Output Totals x24h 10/25/17 10/26/17 10/27/17 23:59 23:59 23:59 Intake Total 4685.000 2502.16 Output Total 3035 350 Balance 5068.148 3055.16 - Lab Results Lab Results: 10/26/17 05:22 10/26/17 05:22 - Physical Exam Wound/Incisions: positive: Healing well Respiratory: positive: No respiratory distress Cardiovascular: positive: Regular rate & rhythm Impression/Plan - Problem List Problem List: s/p laparoscopic right hemicolectomy POD#3. Tolerating liquids Some confusion overnight but has resolved. Has some of the same issues at home. Stools becoming more fir. Ambulating without problems -Advance to diabetic diet -Continue Tylenol for pain -Heplock IV -If tolerates diet, then d/c home.
--- NOTE | 2017-10-28 03:51 | DISCHARGE SUMMARY ---
Physician: King Degroot MD DATE OF ADMISSION: 10/23/2017 DATE OF DISCHARGE: 10/26/2017 REASON FOR ADMISSION: Near obstructing right colon cancer. HISTORY OF PRESENT ILLNESS: The patient is a 77-year-old female who was found to have a near obstructing colon cancer in the distal right colon. She is now here to undergo colon resection. PRINCIPAL DIAGNOSIS: Right colon cancer. OTHER MEDICAL PROBLEMS 1. Diabetes. 2. Hyperlipidemia. 3. Hypertension. 4. Breast cancer. 5. Degenerative joint disease. PROCEDURES: The patient underwent a laparoscopic right hemicolectomy on 2017. HOSPITAL COURSE: The patient was admitted to the hospital and underwent the above procedure. She tolerated the procedure well and was transferred to the floor in stable condition. She was anemic starting with a hemoglobin of 10. Her hemoglobin during hospitalization went down to 8 and then went up to around 9, which it stayed at. She was watched in the intensive care unit for two nights and then transferred to the floor in stable condition. She did have some mild confusion at night. She was treated appropriately and this improved significantly. She was started on liquids on postoperative day two and regular diet on postoperative day three. She was having bowel movements that were loose , but firming up at discharge. She only needed Tylenol for pain relief. Her abdominal incisions remained clean, dry and intact without any evidence of infection. She was then discharged home on postoperative day three in stable condition. CONSULTATIONS: A hospitalist consult was obtained in order to help manage her medical issues during the hospitalization. DISCHARGE PROGRAM 1. Patient will be discharged home. 2. Followup in surgical clinic in 1-2 weeks. 3. Regular diabetic diet. 4. Ambulate with no heavy lifting. 5. May shower. 6. No driving. DISCHARGE MEDICATIONS 1. [place] 5/325, one to two p.o. every 4-6 hours p.r.n. severe pain. 2. Tylenol 650 p.o. q.6h. p.r.n. pain. 3. She is to resume her prehospitalization medications. 4. Hold Plavix for 1 week. 5. Hold Metformin for 2 days. cc: Jefry Deleon MD TD: 10/27/2017 14:50 [facility]
== END 2017-10-26 18:25 | disposition home or self-care (01) | DRG 331 ==
LOC: MS2 06:10 → ICU 07:49 → MS2 10-25 14:51
PROVIDERS: ADMIT Surgery; ATTEND Surgery
PROC: 0DTF4ZZ Resection of Right Large Intestine, Percutaneous Endoscopic Approach (ICD-10-PCS; principal; 2017-10-23 07:30)
DX: C18.3 Malignant neoplasm of hepatic flexure (principal); D50.0 Iron deficiency anemia secondary to blood loss (chronic); I10 Essential (primary) hypertension; E87.6 Hypokalemia; R41.0 Disorientation, unspecified; T41.205A Adverse effect of unspecified general anesthetics, initial encounter; T50.905A Adverse effect of unspecified drugs, medicaments and biological substances, initial encounter; Y92.230 Patient room in hospital as the place of occurrence of the external cause; E11.9 Type 2 diabetes mellitus without complications; E78.5 Hyperlipidemia, unspecified; I25.10 Atherosclerotic heart disease of native coronary artery without angina pectoris; I65.22 Occlusion and stenosis of left carotid artery; E03.9 Hypothyroidism, unspecified; R41.89 Other symptoms and signs involving cognitive functions and awareness; K66.0 Peritoneal adhesions (postprocedural) (postinfection); R32 Unspecified urinary incontinence; Z85.3 Personal history of malignant neoplasm of breast; Z79.82 Long term (current) use of aspirin; Z79.84 Long term (current) use of oral hypoglycemic drugs; Z79.02 Long term (current) use of antithrombotics/antiplatelets; Z79.899 Other long term (current) drug therapy; Z86.010 Personal history of colon polyps
CPT/HCPCS: 36415; 80048; 82040; 83036; 83735; 84100; 85014; 85018; 85025; 87150

== ENCOUNTER 2018-02-10 13:54 | Outpatient (CLI) | payer MEDICARE, OTHER ==
[2018-02-10 19:23] LABS: ALBUMIN 3.6 g/dL (3.2-5.5); ALBUMIN/GLOBULIN RATIO 1.1 (1.0-2.2); BASOPHILS % (AUTO) 0.6 %; BILIRUBIN,TOTAL 0.7 mg/dL (0.2-1.0); CALCIUM 9.5 mg/dL (8.5-10.3); EOSINOPHILS # (AUTO) 0.2 10^3/uL (0.0-0.7); EOSINOPHILS % (AUTO) 2.6 %; HGB - HEMOGLOBIN 10.6 g/dL (12.0-16.0); LYMPHOCYTES # (AUTO) 1.4 10^3/uL (1.5-3.5); MEAN CORPUSCULAR HEMOGLOBIN 28.2 pg (27.0-31.0); MEAN CORPUSCULAR HGB CONC 32.4 g/dL (32.0-36.0); MEAN CORPUSCULAR VOLUME 86.9 fL (81.0-99.0); MEAN PLATELET VOLUME 7.5 fL (7.9-10.8); MONOCYTES # (AUTO) 0.4 10^3/uL (0.0-1.0); NEUTROPHILS # (AUTO) 4.2 10^3/uL (1.5-6.6); NEUTROPHILS % (AUTO) 67.8 %; PLT - PLATELET COUNT 272 10^3/uL (130-450); RED BLOOD COUNT 3.76 10^6/uL (4.20-5.40); RED CELL DISTRIBUTION WIDTH 17.6 % (12.0-15.0); TOTAL PROTEIN 6.9 g/dL (6.7-8.2); WHITE BLOOD COUNT 6.1 x10^3/uL (4.8-10.8)
[2018-02-10 19:31] LABS: HEMOGLOBIN A1C 0.49 g/dL; HEMOGLOBIN A1C % 6.2 % (4.6-6.2)
== END 2018-02-10 13:55 ==
LOC: LAB.N 13:54
PROVIDERS: ATTEND Internal Medicine
DX: C18.9 Malignant neoplasm of colon, unspecified (principal); E11.9 Type 2 diabetes mellitus without complications
CPT/HCPCS: 36415; 80053; 83036; 85025

== ENCOUNTER 2018-07-01 13:46 | Outpatient (CLI) | payer MEDICARE, OTHER ==
--- NOTE | 2018-07-01 15:32 | XRAY Report ---
Reason: ORTHOPNEA Procedure Date: 07/01/2018 Accession Number: [id number] / [id number] Procedure: XRN - Chest 2 View X-Ray CPT Code: 25247 FULL RESULT: EXAM: CHEST RADIOGRAPHY EXAM DATE: 07/01/2018 02:03 PM. CLINICAL HISTORY: ORTHOPNEA. COMPARISON: CHEST 1 VIEW 01/17/2015 7:25 PM. TECHNIQUE: 2 views. FINDINGS: Lungs/Pleura: There are bilateral pleural effusions greater on the right than on the left. There is adjacent bibasilar opacity again greater on the right consistent with associated passive atelectasis. Upper lung zones are clear. No extraventilatory air. Mediastinum: Heart size is borderline enlarged. There is no edema. Mediastinal and hilar contours are within expected limits. Other: None. IMPRESSION: New bilateral pleural effusions small to moderate in volume on the right, and small volume on the left. Associated by basilar atelectasis. RADIA
== END 2018-07-01 13:47 | disposition home or self-care (01) ==
LOC: DI.N 13:46
PROVIDERS: ATTEND Family Medicine
DX: J90 Pleural effusion, not elsewhere classified (principal)
CPT/HCPCS: 71046

== ENCOUNTER 2018-07-29 15:04 | Outpatient (CLI) | payer MEDICARE, OTHER ==
[2018-07-29 18:52] LABS: BASOPHILS # (AUTO) 0.1 10^3/uL (0.0-0.1); BASOPHILS % (AUTO) 0.8 %; EOSINOPHILS # (AUTO) 0.1 10^3/uL (0.0-0.7); HGB - HEMOGLOBIN 11.6 g/dL (12.0-16.0); LYMPHOCYTES # (AUTO) 1.1 10^3/uL (1.5-3.5); LYMPHOCYTES % (AUTO) 18.6 %; MEAN CORPUSCULAR HEMOGLOBIN 28.4 pg (27.0-31.0); MEAN CORPUSCULAR HGB CONC 32.6 g/dL (32.0-36.0); MEAN CORPUSCULAR VOLUME 87.2 fL (81.0-99.0); MEAN PLATELET VOLUME 7.4 fL (7.9-10.8); MONOCYTES # (AUTO) 0.4 10^3/uL (0.0-1.0); MONOCYTES % (AUTO) 6.2 %; NEUTROPHILS # (AUTO) 4.5 10^3/uL (1.5-6.6); NEUTROPHILS % (AUTO) 72.4 %; PLT - PLATELET COUNT 317 10^3/uL (130-450); RED BLOOD COUNT 4.08 10^6/uL (4.20-5.40); RED CELL DISTRIBUTION WIDTH 15.2 % (12.0-15.0); WHITE BLOOD COUNT 6.1 x10^3/uL (4.8-10.8)
[2018-07-29 19:04] LABS: CALCIUM 9.3 mg/dL (8.5-10.3); CREATININE 0.9 mg/dL (0.4-1.0)
[2018-07-29 19:13] LABS: HB2 TOTAL 12.1 g/dL; HEMOGLOBIN A1C 0.62 g/dL; HEMOGLOBIN A1C % 6.8 % (4.6-6.2)
[2018-07-29 19:23] LABS: THYROID STIMULATING HORMONE 3.23 uIU/mL (0.34-5.60)
[2018-07-29 19:25] LABS: FREE T4 (FREE THYROXINE) 1.3 ng/dL (0.58-1.64)
== END 2018-07-29 23:59 | disposition home or self-care (01) ==
LOC: LAB.N 15:04
PROVIDERS: ATTEND Family Medicine
DX: R06.01 Orthopnea (principal); E11.9 Type 2 diabetes mellitus without complications; I10 Essential (primary) hypertension; E03.9 Hypothyroidism, unspecified
CPT/HCPCS: 36415; 80048; 82043; 83036; 83880; 84439; 84443; 84481; 85025

== ENCOUNTER 2018-08-18 16:03 | Emergency (ER) | payer MEDICARE, OTHER ==
[2018-08-18 16:55] LABS: BASOPHILS % (AUTO) 0.7 %; EOSINOPHILS # (AUTO) 0.1 10^3/uL (0.0-0.7); EOSINOPHILS % (AUTO) 1.7 %; HGB - HEMOGLOBIN 11.1 g/dL (12.0-16.0); LYMPHOCYTES # (AUTO) 0.9 10^3/uL (1.5-3.5); LYMPHOCYTES % (AUTO) 15.9 %; MEAN CORPUSCULAR HEMOGLOBIN 27.5 pg (27.0-31.0); MEAN CORPUSCULAR HGB CONC 31.8 g/dL (32.0-36.0); MEAN CORPUSCULAR VOLUME 86.6 fL (81.0-99.0); MEAN PLATELET VOLUME 7.3 fL (7.9-10.8); MONOCYTES # (AUTO) 0.4 10^3/uL (0.0-1.0); MONOCYTES % (AUTO) 7.2 %; NEUTROPHILS # (AUTO) 4.2 10^3/uL (1.5-6.6); NEUTROPHILS % (AUTO) 74.5 %; PLT - PLATELET COUNT 270 10^3/uL (130-450); RED BLOOD COUNT 4.02 10^6/uL (4.20-5.40); RED CELL DISTRIBUTION WIDTH 16.5 % (12.0-15.0); WHITE BLOOD COUNT 5.6 x10^3/uL (4.8-10.8)
--- NOTE | 2018-08-18 16:59 | ED Physician Documentation ---
PD HPI ABD PAIN - Stated complaint Stated Complaint: STOMACH PAIN - Chief complaint Chief Complaint: Abd Pain - History obtained from History obtained from: Patient, Family - History of Present Illness Timing - onset: Other (78-year-old woman with history of hypertension hyperlipidemia and hemicolectomy for limited colon cancer presents with 2 days of abdominal pain and swelling. She had a small BM last night, but does not note flatus today. She denies nausea or vomiting.) Review of Systems Ten Systems: 10 systems reviewed and negative Constitutional: denies: Fever, Chills, Myalgias Nose: reports: Reviewed and negative Cardiac: denies: Chest pain / pressure, Palpitations Respiratory: reports: Reviewed and negative. denies: Dyspnea, Cough PD PAST MEDICAL HISTORY - Past Medical History Cardiovascular: Hypertension, High cholesterol, Coronary artery disease, Peripheral Vascular Disease Respiratory: None Neuro: Other Endocrine/Autoimmune: None GI: GERD, Colon polyps, Chronic constipation [employer]: Breast cancer : 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 HEENT: None Psych: None Musculoskeletal: Osteoarthritis Derm: None - Past Surgical History Past Surgical History: Yes General: Colonoscopy, EGD Ortho: Hip replacement, Spine surgery /[employer]N: Hysterectomy, Other - Present Medications Home Medications: Ambulatory Orders Medication Instructions Recorded Confirmed Terazosin [Hytrin] 5 mg PO BID 08/11/12 12/01/17 Anastrozole 1 mg PO DAILY 10/06/12 12/01/17 Aspirin Chewable [[facility] [place] 81 mg PO DAILY 10/06/12 12/01/17 Aspirin] Atorvastatin Calcium 20 mg PO DAILY 10/06/12 12/01/17 Calcium Carbonate/Vitamin D3 1 each PO BID 10/06/12 12/01/17 [Calcium 600 + Vit D 400 Softgl] Carvedilol [Coreg] 25 mg PO BID 10/06/12 12/01/17 Hydrochlorothiazide 25 mg PO DAILY 10/06/12 12/01/17 Levothyroxine [Synthroid] 0.175 mg PO QDAC 10/06/12 12/01/17 Losartan [Cozaar] 100 mg PO DAILY 10/06/12 12/01/17 Multivitamin [Multivitamins] 1 each PO DAILY 10/06/12 12/01/17 Potassium Chloride [Micro-K] 20 meq PO BIDWM 10/06/12 12/01/17 Glimepiride 8 mg PO DAILY 01/17/15 12/01/17 cloNIDine [Catapres] 0.1 mg PO QPM 01/17/15 12/01/17 Oxybutynin Chloride [Ditropan Xl] 15 mg PO DAILY 10/23/17 12/01/17 HYDROcod/ACETAM 5/325 [[place] 5/325] 1 tab PO Q4HR PRN #30 tablet 10/26/17 12/01/17 Furosemide [Lasix] 40 mg PO DAILY #3 tablet 08/18/18 - Allergies Allergies/Adverse Reactions: Allergies Allergy/AdvReac Type Severity Reaction Status Date / Time codeine [Codeine] Allergy Unknown Rash Verified 08/18/18 16:08 shellfish derived AdvReac Unknown Unknown Verified 08/18/18 16:08 - Social History Does the pt smoke?: No Smoking Status: Former smoker Does the pt drink ETOH?: No Does the pt have substance abuse?: No - Family History Family history: reports: Non contributory - Immunizations Immunizations are current?: Yes - POLST Patient has POLST: No POLST Status: Full Code PD ED PE NORMAL - Vitals Vital signs reviewed: Yes - General General: Alert and oriented X 3, No acute distress - HEENT HEENT: PERRL, EOMI - Neck Neck: Supple, no meningeal sign, No bony TTP - Cardiac Cardiac: No murmur, Other (Rapid and irregular) - Respiratory Respiratory: No respiratory distress, Clear bilaterally - Abdomen Abdomen: Soft, Other (Lacking bowel tones, no tenderness.) - Back Back: No CVA TTP, No spinal TTP - Derm Derm: Normal color, Warm and dry - Extremities Extremities: No edema, No calf tenderness / cord - Neuro Neuro: Alert and oriented X 3, Normal speech Results - Vitals Vitals: Vital Signs - 24 hr 08/18/18 08/18/18 16:06 18:08 Temperature 36.6 C Heart Rate 131 H 109 H Respiratory 18 18 Rate Blood Pressure 143/99 H 197/115 H O2 Saturation 96 100 Oxygen O2 Source [] Room air O2 Source [] Room air O2 Source Room air - EKG (time done) 1631 Rate: Rate (enter#) (110) Rhythm: Atrial fibrillation [place]: Normal Intervals: Prolonged QT QRS: Low voltage Ischemia: No: ST elevation c/w ischemia Computer interpretation: Agree with computer - Labs Labs: Laboratory Tests 08/18/18 08/18/18 08/18/18 16:50 16:50 16:50 WBC 5.6 RBC 4.02 L Hgb 11.1 L Hct 34.9 L MCV 86.6 MCH 27.5 MCHC 31.8 L RDW 16.5 H Plt Count 270 MPV 7.3 L Neut # (Auto) 4.2 Lymph # (Auto) 0.9 L [place] # (Auto) 0.4 Eos # (Auto) 0.1 Baso # (Auto) 0.0 Absolute Nucleated RBC 0.00 Nucleated RBC % 0.0 Sodium 139 Potassium 4.0 Chloride 103 Carbon Dioxide 26 Anion Gap 10.0 BUN 21 H Creatinine 1.0 Estimated GFR (MDRD) 53 L Glucose 121 H Calcium 9.3 Total Bilirubin 1.1 H AST 20 ALT 35 Alkaline Phosphatase 94 B-Natriuretic Peptide 799 H Total Protein 6.7 Albumin 3.5 Globulin 3.2 Albumin/Globulin Ratio 1.1 Lipase 20 L Urine Color Urine Clarity Urine pH Ur Specific [place] Urine Protein Urine Glucose (UA) Urine Ketones Urine Occult Blood Urine Nitrite Urine Bilirubin Urine Urobilinogen Ur Leukocyte Esterase Urine RBC Urine WBC Ur Squamous Epith Cells Urine Bacteria Ur Microscopic Review Urine Culture Comments 08/18/18 19:05 WBC RBC Hgb Hct MCV MCH MCHC RDW Plt Count MPV Neut # (Auto) Lymph # (Auto) [place] # (Auto) Eos # (Auto) Baso # (Auto) Absolute Nucleated RBC Nucleated RBC % Sodium Potassium Chloride Carbon Dioxide Anion Gap BUN Creatinine Estimated GFR (MDRD) Glucose Calcium Total Bilirubin AST ALT Alkaline Phosphatase B-Natriuretic Peptide Total Protein Albumin Globulin Albumin/Globulin Ratio Lipase Urine Color YELLOW Urine Clarity CLEAR Urine pH 6.5 Ur Specific [place] <=1.005 Urine Protein NEGATIVE Urine Glucose (UA) NEGATIVE Urine Ketones NEGATIVE Urine Occult Blood SMALL H Urine Nitrite NEGATIVE Urine Bilirubin NEGATIVE Urine Urobilinogen 0.2 (NORMAL) Ur Leukocyte Esterase NEGATIVE Urine RBC 6-10 H Urine WBC 0-3 Ur Squamous Epith Cells MOD Squamous H Urine Bacteria None Seen Ur Microscopic Review INDICATED Urine Culture Comments NOT INDICATED - Rads (name of study) CT A/P Radiology: EMP read contemporaneously (Trace perihepatic ascites, Mod B pleural effusions, R>L, stable 7mm pancreatic cyst) PD MEDICAL DECISION MAKING - ED course ED course: This is an 78-year-old woman who presents with abdominal pain, pattern was concerning for a bowel obstruction but this is not present on CT. She is in at rial fibrillation with mild RVR, rate around 100 treated with Lopressor here with good effect. She also has anasarca. Previous imaging was reviewed. Seems like this is a subacute process. She has an appoint with her doctor in 2 days and we will diurese her until then. She is not in extremis and did not want to start diuretics until tomorrow given the late hour. Departure - Departure Disposition: Home, Self Care Clinical Impression: Abdominal pain Qualifiers: Abdominal location: generalized Qualified Code(s): R10.84 - Generalized abdominal pain Atrial fibrillation Qualifiers: Atrial fibrillation type: unspecified Qualified Code(s): I48.91 - Unspecified atrial fibrillation Fluid overload Qualifiers: Hypervolemia type: unspecified Qualified Code(s): E87.70 - Fluid overload, unspecified Condition: Good Record reviewed to determine appropriate education?: Yes Instructions: ED Abdominal Pain Unkn Cause Prescriptions: Furosemide [Lasix] 40 mg PO DAILY #3 tablet Comments: Take the diuretics until you follow-up with your doctor on Thursday. Return for new or worsening symptoms. Let your physician know on Thursday that she had a stable elevated T that was negative except for trace perihepatic ascites And moderate bilateral pleural effusions.
[2018-08-18] MEDS ORDERED: IOVERSOL 320 100 ML VIAL IVP ONE (17:08)
[2018-08-18] MEDS ORDERED: IOVERSOL 320 50 ML VIAL ONE (17:08)
[2018-08-18 17:12] LABS: ALBUMIN 3.5 g/dL (3.2-5.5); ALBUMIN/GLOBULIN RATIO 1.1 (1.0-2.2); BILIRUBIN,TOTAL 1.1 mg/dL (0.2-1.0); CALCIUM 9.3 mg/dL (8.5-10.3); TOTAL PROTEIN 6.7 g/dL (6.7-8.2)
[2018-08-18] MEDS ORDERED: METOPROLOL 5 MG/5 ML VIAL IVP STA (18:44)
[2018-08-18 19:15] LABS: BILIRUBIN,URINE NEGATIVE (NEGATIVE); GLUCOSE, URINE (UA) NEGATIVE (NEGATIVE); KETONES,URINE (UA) NEGATIVE (NEGATIVE); LEUKOCYTE ESTERASE, URINE NEGATIVE (NEGATIVE); NITRITE,URINE NEGATIVE (NEGATIVE); OCCULT BLOOD,URINE SMALL (NEGATIVE); PH,URINE 6.5 PH (5.0-7.5); PROTEIN,URINE NEGATIVE (NEGATIVE); UROBILINOGEN,URINE 0.2 (NORMAL) E.U./dL (NORMAL)
[2018-08-18 19:17] LABS: CLARITY,URINE CLEAR (CLEAR)
[2018-08-18 19:18] LABS: BACTERIA,URINE None Seen /HPF (None Seen); SQUAMOUS EPITHELIAL CELL,UR MOD Squamous (<= Few)
--- NOTE | 2018-08-18 19:24 | CT Report ---
Reason: IV and PO, abd swelling, suspect SBO Procedure Date: 08/18/2018 Accession Number: [id number] / [id number] Procedure: CT - Abdomen/Pelvis W CPT Code: FULL RESULT: EXAM: CT ABDOMEN AND PELVIS EXAM DATE: 08/18/2018 06:39 PM. CLINICAL HISTORY: IV and PO, abdominal swelling, suspect small bowel obstruction. COMPARISONS: ABDOMEN/PELVIS W/ 04/01/2018 12:51 PM. TECHNIQUE: Routine helical CT imaging was performed through the abdomen and pelvis. IV contrast: 100 mL Optiray 320. Enteric contrast: Yes. Reconstructions: Coronal and sagittal. In accordance with CT protocol optimization, one or more of the following dose reduction techniques were utilized for this exam: automated exposure control, adjustment of mA and/or KV based on patient size, or use of iterative reconstructive technique. FINDINGS: Lung Bases: Small to moderate bilateral pleural effusions, right greater than left. Calcified pleural plaque seen at the right lung base. Liver: Stable 1.4 cm hypodensity in segment 6. The liver is otherwise unremarkable. Gallbladder/Bile Ducts: Unremarkable. Spleen: Normal. Pancreas: Stable 7 mm pancreatic body cyst. No evidence of pancreatitis. Adrenal Glands: Normal. Kidneys: Normal. No masses or hydronephrosis. Peritoneal Cavity/Bowel: Status post right hemicolectomy. No bowel obstruction. No free air or fluid collections. No mesenteric lymphadenopathy. There is trace right upper quadrant ascites. Pelvic Organs: The uterus has been removed. No pelvic mass or fluid collections. The urinary bladder is unremarkable. Vasculature: Atherosclerotic aorta without evidence of aneurysm. Bones: Status post posterior L4-L5 fusion. Left hip replacement noted. No acute bony abnormality. Other: None. IMPRESSION: 1. No evidence of a bowel obstruction or acute inflammatory process. 2. Trace perihepatic ascites. 3. Moderate bilateral pleural effusions, right greater than left. 4. Stable 7 mm pancreatic cyst. RADIA
[2018-08-18 19:40] VITALS: BP 168/104
== END 2018-08-18 19:49 | disposition home or self-care (01) ==
LOC: ED 16:03
DX: R10.84 Generalized abdominal pain (principal); I48.91 Unspecified atrial fibrillation; E87.70 Fluid overload, unspecified; I10 Essential (primary) hypertension; Z87.891 Personal history of nicotine dependence; Z85.038 Personal history of other malignant neoplasm of large intestine
CPT/HCPCS: 36415; 74177; 80053; 81001; 83690; 83880; 85025; 93005; 96374; 99283; Q9967; 81003; 87086

== ENCOUNTER 2018-08-27 08:00 | Outpatient (CLI) | payer MEDICARE, OTHER ==
[2018-08-27 18:49] LABS: HGB - HEMOGLOBIN 11.9 g/dL (12.0-16.0); MEAN CORPUSCULAR HEMOGLOBIN 27.8 pg (27.0-31.0); MEAN PLATELET VOLUME 8.3 fL (7.9-10.8); RED BLOOD COUNT 4.28 10^6/uL (4.20-5.40); WHITE BLOOD COUNT 6.2 x10^3/uL (4.8-10.8)
[2018-08-27 18:53] LABS: ALBUMIN 3.8 g/dL (3.2-5.5); ALBUMIN/GLOBULIN RATIO 1.2 (1.0-2.2); BILIRUBIN,TOTAL 0.8 mg/dL (0.2-1.0); CALCIUM 9.6 mg/dL (8.5-10.3); CREATININE 0.9 mg/dL (0.4-1.0)
== END 2018-08-27 23:59 | disposition home or self-care (01) ==
LOC: LAB.N 08:00
PROVIDERS: ATTEND Nurse Practitioner
DX: R63.5 Abnormal weight gain (principal); J90 Pleural effusion, not elsewhere classified; I10 Essential (primary) hypertension
CPT/HCPCS: 36415; 80053; 83880; 85027

== ENCOUNTER 2018-09-09 11:38 | Outpatient (CLI) | payer MEDICARE, OTHER ==
--- NOTE | 2018-09-09 12:03 | XRAY Report ---
Reason: CHEST PAIN,ATRIAL FIBRILLATION Procedure Date: 09/09/2018 Accession Number: [id number] / [id number] Procedure: WCP - Chest 2 View X-Ray CPT Code: 42321 FULL RESULT: EXAM: CHEST RADIOGRAPHY EXAM DATE: 09/09/2018 11:49 AM. CLINICAL HISTORY: CHEST PAIN,ATRIAL FIBRILLATION. COMPARISON: CHEST 2 VIEW 07/01/2018 2:07 PM. TECHNIQUE: 2 views. FINDINGS: Lungs/Pleura: Minimal bilateral basilar atelectasis. Interval decrease of right pleural effusion which is now mild. Little change in minimal left pleural effusion. Lungs are otherwise clear. Mediastinum: Borderline cardiac enlargement. Normal mediastinal mass. Normal pulmonary vasculature. Other: None. IMPRESSION: 1. Interval decrease in right pleural effusion. No change in minimal left pleural effusion. 2. Otherwise no significant cardiopulmonary abnormality. RADIA
== END 2018-09-09 11:39 | disposition home or self-care (01) ==
LOC: DI.WCP 11:38
PROVIDERS: ATTEND Family Medicine
DX: J90 Pleural effusion, not elsewhere classified (principal); I48.91 Unspecified atrial fibrillation; R07.9 Chest pain, unspecified
CPT/HCPCS: 36415; 71046; 82553; 84484

== ENCOUNTER 2018-09-09 13:31 | Outpatient (CLI) | payer MEDICARE, OTHER ==
[2018-09-09 14:11] LABS: TROPONIN I < 0.04 ng/mL (<0.49)
[2018-09-09 14:13] LABS: CREATINE KINASE MB 0.6 ng/mL (0.6-6.3)
== END 2018-09-09 13:32 | disposition home or self-care (01) ==
LOC: LAB 13:31
PROVIDERS: ATTEND Family Medicine
DX: R07.9 Chest pain, unspecified (principal); I48.91 Unspecified atrial fibrillation
CPT/HCPCS: 36415; 82553; 84484

== ENCOUNTER 2018-10-06 16:19 | Outpatient (CLI) | payer MEDICARE, OTHER | END 2018-10-06 16:20 | disposition critical access hospital (66) | LOC: EMS 16:19 | PROVIDERS: ATTEND Surgery | DX: R42 Dizziness and giddiness (principal); R55 Syncope and collapse; S09.90XA Unspecified injury of head, initial encounter; W22.8XXA Striking against or struck by other objects, initial encounter; Z79.02 Long term (current) use of antithrombotics/antiplatelets | CPT/HCPCS: A0425; A0427 ==

== ENCOUNTER 2018-10-06 16:34 | Emergency (ER) | payer MEDICARE, OTHER ==
[2018-10-06] MEDS ORDERED: SODIUM CHLORIDE 0.9% 1,000 ML IV ONE ×3 (16:41→17:39)
--- NOTE | 2018-10-06 16:51 | ED Physician Documentation ---
History of Present Illness - Stated complaint Stated Complaint: NEAR SYNCOPE - History obtained from History obtained from: Patient, EMS - History of Present Illness Pain level max: 3 Pain level now: 2 Improved by: rest Worsened by: standing - Additonal information Additional information: 78-year-old female has had near syncope anytime that she stands for the past 3 to 4 days. Has not been eating and drinking well. No fevers. No vomiting. Better with rest and worse with standing up. No coughing. No chest pain. Toda y she was on the toilet and fell, striking her head. Unsure if she lost consciousness versus or not. No neck pain. Initially had some low back pain but this is resolved. Also initially had right hip pain but this is also resolved. Review of Systems Ten Systems: 10 systems reviewed and negative Constitutional: denies: Fever, Chills Ears: denies: Ear pain Nose: denies: Rhinorrhea / runny nose, Congestion Throat: denies: Sore throat Cardiac: denies: Chest pain / pressure, Palpitations Respiratory: denies: Dyspnea, Cough, Wheezing GI: denies: Abdominal Pain, Nausea, Vomiting, Diarrhea : denies: Dysuria Skin: denies: Rash Musculoskeletal: denies: Neck pain Neurologic: denies: Focal weakness, Numbness PD PAST MEDICAL HISTORY - Past Medical History Cardiovascular: Hypertension, High cholesterol, Coronary artery disease, Peripheral Vascular Disease Respiratory: None Neuro: Other Endocrine/Autoimmune: None GI: GERD, Colon polyps, Chronic constipation [employer]: Breast cancer : 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 HEENT: None Psych: None Musculoskeletal: Osteoarthritis Derm: None - Past Surgical History Past Surgical History: Yes General: Colonoscopy, EGD Ortho: Hip replacement, Spine surgery /[employer]: Hysterectomy, Other - Present Medications Home Medications: Ambulatory Orders Medication Instructions Recorded Confirmed Terazosin [Hytrin] 5 mg PO BID 08/11/12 12/01/17 Anastrozole 1 mg PO DAILY 10/06/12 12/01/17 Aspirin Chewable [[facility] 81 mg PO DAILY 10/06/12 12/01/17 Aspirin] Atorvastatin Calcium 20 mg PO DAILY 10/06/12 12/01/17 Calcium Carbonate/Vitamin D3 1 each PO BID 10/06/12 12/01/17 [Calcium 600 + Vit D 400 Softgl] Carvedilol [Coreg] 25 mg PO BID 10/06/12 12/01/17 Hydrochlorothiazide 25 mg PO DAILY 10/06/12 12/01/17 Levothyroxine [Synthroid] 0.175 mg PO QDAC 10/06/12 12/01/17 Losartan [Cozaar] 100 mg PO DAILY 10/06/12 12/01/17 Multivitamin [Multivitamins] 1 each PO DAILY 10/06/12 12/01/17 Potassium Chloride [Micro-K] 20 meq PO BIDWM 10/06/12 12/01/17 Glimepiride 8 mg PO DAILY 01/17/15 12/01/17 cloNIDine [Catapres] 0.1 mg PO QPM 01/17/15 12/01/17 Oxybutynin Chloride [Ditropan Xl] 15 mg PO DAILY 10/23/17 12/01/17 HYDROcod/ACETAM 5/325 [[place] 5/325] 1 tab PO Q4HR PRN #30 tablet 10/26/17 12/01/17 Furosemide [Lasix] 40 mg PO DAILY #3 tablet 08/18/18 Cephalexin [Keflex] 500 mg PO Q6H #28 capsule 10/06/18 - Allergies Allergies/Adverse Reactions: Allergies Allergy/AdvReac Type Severity Reaction Status Date / Time codeine [Codeine] Allergy Unknown Rash Verified 08/18/18 16:08 shellfish derived AdvReac Unknown Unknown Verified 08/18/18 16:08 - Social History Does the pt smoke?: No Smoking Status: Former smoker Does the pt drink ETOH?: No Does the pt have substance abuse?: No - Immunizations Immunizations are current?: Yes - POLST Patient has POLST: No POLST Status: Full Code PD ED PE NORMAL - Vitals Vital signs reviewed: Yes - General General: Alert and oriented X 3, No acute distress - HEENT HEENT: PERRL, Pharynx benign, Other (Dry lips and tongue) - Neck Neck: Supple, no meningeal sign - Cardiac Cardiac: Strong equal pulses, Other (Irregular) - Respiratory Respiratory: No respiratory distress, Clear bilaterally - Abdomen Abdomen: Soft, Non tender, Non distended - Back Back: No spinal TTP - Derm Derm: Warm and dry - Extremities Extremities: No calf tenderness / cord - Neuro Neuro: Alert and oriented X 3 - Psych Psych: Normal mood, Normal affect Results - Vitals Vitals: Vital Signs - 24 hr 07/10/19 07/10/19 07/10/19 16:36 17:11 17:51 Temperature 36.8 C Heart Rate 112 H 91 104 H Respiratory 23 16 16 Rate Blood Pressure 103/62 115/82 H 115/82 H O2 Saturation 97 98 97 10/06/18 18:26 Temperature Heart Rate 95 Respiratory 19 Rate Blood Pressure 136/75 H O2 Saturation 100 Oxygen O2 Source [] Room air O2 Source [] Room air O2 Source Room air - EKG (time done) 1638 Rate: Rate (enter#) (96) Rhythm: Atrial fibrillation [place]: Normal QRS: Normal Ischemia: Non specific changes - Labs Labs: Laboratory Tests 10/06/18 10/06/18 10/06/18 17:08 17:08 17:08 WBC 9.8 RBC 4.41 Hgb 12.1 Hct 38.5 MCV 87.3 MCH 27.4 MCHC 31.4 L RDW 17.4 H Plt Count 223 MPV 9.9 Neut # (Auto) 7.5 H Lymph # (Auto) 1.5 [place] # (Auto) 0.7 Eos # (Auto) 0.1 Baso # (Auto) 0.0 Absolute Nucleated RBC 0.00 Nucleated RBC % 0.0 Sodium 139 Potassium 3.9 Chloride 96 L Carbon Dioxide 28 Anion Gap 15.0 H BUN 50 H Creatinine 1.8 H Estimated GFR (MDRD) 27 L Glucose 211 H Calcium 10.4 H Total Bilirubin 1.7 H AST 28 ALT 20 Alkaline Phosphatase 108 Troponin I < 0.04 Total Protein 7.6 Albumin 3.8 Globulin 3.8 Albumin/Globulin Ratio 1.0 Lipase 22 Urine Color Urine Clarity Urine pH Ur Specific [place] Urine Protein Urine Glucose (UA) Urine Ketones Urine Occult Blood Urine Nitrite Urine Bilirubin Urine Urobilinogen Ur Leukocyte Esterase Urine RBC Urine WBC Ur Squamous Epith Cells Urine Bacteria Urine Casts Ur Microscopic Review Urine Culture Comments 10/06/18 17:25 WBC RBC Hgb Hct MCV MCH MCHC RDW Plt Count MPV Neut # (Auto) Lymph # (Auto) [place] # (Auto) Eos # (Auto) Baso # (Auto) Absolute Nucleated RBC Nucleated RBC % Sodium Potassium Chloride Carbon Dioxide Anion Gap BUN Creatinine Estimated GFR (MDRD) Glucose Calcium Total Bilirubin AST ALT Alkaline Phosphatase Troponin I Total Protein Albumin Globulin Albumin/Globulin Ratio Lipase Urine Color YELLOW Urine Clarity HAZY Urine pH 7.5 Ur Specific [place] 1.010 Urine Protein NEGATIVE Urine Glucose (UA) NEGATIVE Urine Ketones NEGATIVE Urine Occult Blood NEGATIVE Urine Nitrite NEGATIVE Urine Bilirubin NEGATIVE Urine Urobilinogen 0.2 (NORMAL) Ur Leukocyte Esterase SMALL H Urine RBC 0-5 Urine WBC 11-25 H Ur Squamous Epith Cells RARE Squamous Urine Bacteria Many H Urine Casts 6-10 Hyaline Casts Ur Microscopic Review INDICATED Urine Culture Comments INDICATED - Rads (name of study) head CT Radiology: Prelim report reviewed, EMP read contemporaneously, See rad report (No acute intracranial abnormality. Small chronic right frontoparietal infarction) cervical spine CT Radiology: Prelim report reviewed, EMP read contemporaneously, See rad report (No acute abnormality) PD MEDICAL DECISION MAKING - ED course Complexity details: reviewed results, re-evaluated patient, considered differential, d/w patient, d/w family ED course: 78-year-old female with syncope versus near syncope today. Sustained a head injury. She is on Plavix, head CT is negative. Developed neck pain while over in the CT scanner, so CT of the cervical spine was performed is negative. Feels much better after IV fluids. She was recently started on Lasix and likely that this is causing her dehydration. She will increase her fluid intake. She also has a UTI and will treat for this. Given IV Rocephin. Patient is well- appearing, nontoxic. Afebrile. No arrhythmias on telemetry. Patient counseled regarding signs and symptoms for which I believe and urgent re-evaluation would be necessary. Patient with good understanding of and agreement to plan and is comfortable going home at this time This document was made in part using voice recognition software. While efforts are made to proofread this document, sound alike and grammatical errors may occur. Departure - Departure Disposition: Home, Self Care Clinical Impression: Dehydration, DEONTE (acute kidney injury) Fall Qualifiers: Encounter type: initial encounter Qualified Code(s): W19.XXXA - Unspecified fall, initial encounter UTI (urinary tract infection) Qualifiers: Urinary tract infection type: acute cystitis Hematuria presence: without hematuria Qualified Code(s): N30.00 - Acute cystitis without hematuria Atrial fibrillation Qualifiers: Atrial fibrillation type: chronic Qualified Code(s): I48.2 - Chronic atrial fibrillation Condition: Good Instructions: ED Dehydration, ED UTI Cystitis Female Follow-Up: Demmler,Elijah W, MD [Primary Care Provider] - Within 3 Days Prescriptions: Cephalexin [Keflex] 500 mg PO Q6H #28 capsule Comments: Take all antibiotics until gone. Return if you worsen. Follow-up with your doctor in 3 days for repeat evaluation. You should have your blood work rechecked at that time as well. You need to drink more water at home. Discharge Date/Time: 10/06/18 19:01
[2018-10-06 17:21] LABS: BASOPHILS % (AUTO) 0.3 %; EOSINOPHILS # (AUTO) 0.1 10^3/uL (0.0-0.7); EOSINOPHILS % (AUTO) 0.6 %; HGB - HEMOGLOBIN 12.1 g/dL (12.0-16.0); LYMPHOCYTES # (AUTO) 1.5 10^3/uL (1.5-3.5); LYMPHOCYTES % (AUTO) 15.1 %; MEAN CORPUSCULAR HEMOGLOBIN 27.4 pg (27.0-31.0); MEAN CORPUSCULAR HGB CONC 31.4 g/dL (32.0-36.0); MEAN CORPUSCULAR VOLUME 87.3 fL (81.0-99.0); MEAN PLATELET VOLUME 9.9 fL (7.9-10.8); MONOCYTES # (AUTO) 0.7 10^3/uL (0.0-1.0); MONOCYTES % (AUTO) 7.3 %; NEUTROPHILS # (AUTO) 7.5 10^3/uL (1.5-6.6); NEUTROPHILS % (AUTO) 76.1 %; PLT - PLATELET COUNT 223 10^3/uL (130-450); RED BLOOD COUNT 4.41 10^6/uL (4.20-5.40); RED CELL DISTRIBUTION WIDTH 17.4 % (12.0-15.0); WHITE BLOOD COUNT 9.8 x10^3/uL (4.8-10.8)
--- NOTE | 2018-10-06 17:21 | CT Report ---
Reason: head injury, fall, pt takes plavix Procedure Date: 10/06/2018 Accession Number: [id number] / [id number] Procedure: CT - HEAD WO CPT Code: FULL RESULT: EXAM: CT HEAD EXAM DATE: 10/06/2018 05:02 PM. CLINICAL HISTORY: Head injury, fall, patient takes Plavix. COMPARISON: HEAD W/O 01/19/2015 4:57 PM. TECHNIQUE: Multiaxial CT images were obtained from the foramen magnum to the vertex. Reformats: Sagittal and coronal. IV contrast: None. In accordance with CT protocol optimization, one or more of the following dose reduction techniques were utilized for this exam: automated exposure control, adjustment of mA and/or KV based on patient size, or use of iterative reconstructive technique. FINDINGS: Parenchyma: There is a small focus of posterior right frontoparietal lobe encephalomalacia, unchanged. No evidence of acute infarction or hemorrhage. Extraaxial Spaces: Normal for age. No subdural or epidural collections identified. Ventricles: Normal in size and position. Sinuses and Orbits: Imaged paranasal sinuses, orbits, and mastoids show no significant abnormality. Bones: No evidence of fracture or calvarial defect. Other: None. IMPRESSION: 1. No acute intracranial abnormality. 2. Small, chronic right frontoparietal infarction. RADIA
--- NOTE | 2018-10-06 17:26 | CT Report ---
Reason: neck pain s/p fall Procedure Date: 10/06/2018 Accession Number: [id number] / [id number] Procedure: CT - CERVICAL SPINE WO CPT Code: FULL RESULT: EXAM: CT CERVICAL SPINE WITHOUT CONTRAST. DATE: 10/06/2018 05:02 PM. HISTORY: Neck pain, status post fall. COMPARISONS: HEAD W/O 01/19/2015 4:57 PM. TECHNIQUE: Thin-section axial images were acquired of the cervical spine without contrast. Post-processing: Coronal and sagittal reformats. Other: None. In accordance with CT protocol optimization, one or more of the following dose reduction techniques were utilized for this exam: automated exposure control, adjustment of mA and/or KV based on patient size, or use of iterative reconstructive technique. FINDINGS: Alignment: No scoliosis or spondylolisthesis. Bones: No fracture or bone lesion. Interspace Levels/Facets: Moderate disk space narrowing at C5-C6, C6-C7 and C7-T1. There are anterior bridging osteophytes from C3-C7. Degenerative bulging disk osteophyte complexes with hypertrophic bony changes also present resulting in severe bilateral neural foraminal and moderate central canal stenosis at C5-C6 and C6-C7. There is diffuse bilateral facet joint arthropathy. Musculature: Normal. No fatty atrophy. Other: The paravertebral and prevertebral soft tissues are unremarkable. The lung apices are clear. IMPRESSION: 1. No cervical spine fracture or malalignment. 2. Multilevel disk and facet joint degenerative changes as detailed above most severe at C5-C6 and C6-C7. RADIA
[2018-10-06 17:32] LABS: BILIRUBIN,URINE NEGATIVE (NEGATIVE); GLUCOSE, URINE (UA) NEGATIVE (NEGATIVE); KETONES,URINE (UA) NEGATIVE (NEGATIVE); LEUKOCYTE ESTERASE, URINE SMALL (NEGATIVE); NITRITE,URINE NEGATIVE (NEGATIVE); OCCULT BLOOD,URINE NEGATIVE (NEGATIVE); PH,URINE 7.5 PH (5.0-7.5); PROTEIN,URINE NEGATIVE (NEGATIVE); UROBILINOGEN,URINE 0.2 (NORMAL) E.U./dL (NORMAL)
[2018-10-06 17:36] LABS: ALBUMIN 3.8 g/dL (3.2-5.5); BILIRUBIN,TOTAL 1.7 mg/dL (0.2-1.0); CALCIUM 10.4 mg/dL (8.5-10.3); CREATININE 1.8 mg/dL (0.4-1.0); TOTAL PROTEIN 7.6 g/dL (6.7-8.2)
[2018-10-06 17:37] LABS: CLARITY,URINE HAZY (CLEAR)
[2018-10-06 17:38] LABS: BACTERIA,URINE Many /HPF (None Seen); RBC,URINE 0-5 /HPF (0-5); SQUAMOUS EPITHELIAL CELL,UR RARE Squamous (<= Few)
[2018-10-06 17:39] LABS: CASTS, URINE 6-10 Hyaline Casts /LPF
[2018-10-06] MEDS ORDERED: cefTRIAXone 1 GM VIAL IVP STA (17:44)
[2018-10-06 18:27] VITALS: BP 136/75
== END 2018-10-06 19:01 | disposition home or self-care (01) ==
LOC: EDBD → EDUNIT# → ED 16:34
DX: E86.0 Dehydration (principal); N17.9 Acute kidney failure, unspecified; N30.00 Acute cystitis without hematuria; I48.2 Chronic atrial fibrillation; Z79.02 Long term (current) use of antithrombotics/antiplatelets; S09.90XA Unspecified injury of head, initial encounter; W18.11XA Fall from or off toilet without subsequent striking against object, initial encounter; Y93.89 Activity, other specified; M50.322 Other cervical disc degeneration at C5-C6 level; M48.02 Spinal stenosis, cervical region; I10 Essential (primary) hypertension; Z79.82 Long term (current) use of aspirin; Z87.891 Personal history of nicotine dependence
CPT/HCPCS: 36415; 70450; 72125; 80053; 81001; 81003; 83690; 84484; 85025; 87086; 87181; 93005; 96361; 96374; 99284

== ENCOUNTER 2018-10-14 10:45 | Outpatient (CLI) | payer MEDICARE, OTHER ==
[2018-10-14 11:21] LABS: BASOPHILS % (AUTO) 0.5 %; EOSINOPHILS # (AUTO) 0.2 10^3/uL (0.0-0.7); EOSINOPHILS % (AUTO) 1.8 %; HGB - HEMOGLOBIN 10.4 g/dL (12.0-16.0); LYMPHOCYTES # (AUTO) 1.6 10^3/uL (1.5-3.5); LYMPHOCYTES % (AUTO) 19.8 %; MEAN CORPUSCULAR HEMOGLOBIN 27.8 pg (27.0-31.0); MEAN CORPUSCULAR VOLUME 89.8 fL (81.0-99.0); MEAN PLATELET VOLUME 9.2 fL (7.9-10.8); MONOCYTES # (AUTO) 0.6 10^3/uL (0.0-1.0); MONOCYTES % (AUTO) 7.4 %; NEUTROPHILS # (AUTO) 5.8 10^3/uL (1.5-6.6); NEUTROPHILS % (AUTO) 69.9 %; PLT - PLATELET COUNT 232 10^3/uL (130-450); RED BLOOD COUNT 3.74 10^6/uL (4.20-5.40); RED CELL DISTRIBUTION WIDTH 18.4 % (12.0-15.0); WHITE BLOOD COUNT 8.3 x10^3/uL (4.8-10.8)
[2018-10-14 11:33] LABS: BUN - BLOOD UREA NITROGEN 30 mg/dL (6-20); CALCIUM 9.5 mg/dL (8.5-10.3); CARBON DIOXIDE - CO2 28 mmol/L (21-32); CHLORIDE 96 mmol/L (101-111); CHOL/HDL RATIO 4.2 (<4.4); CHOLESTEROL 122 mg/dL; CREATININE 1.2 mg/dL (0.4-1.0); GFR - MDRD 43 (>89); GLUCOSE 132 mg/dL (70-100); HDL CHOLESTEROL 29 mg/dL; LDL CHOLESTEROL,CALCULATED 56 mg/dL; LDL/HDL RATIO 1.9 (<4.4); SODIUM 138 mmol/L (135-145); VLDL CHOLESTEROL 37 mg/dL
[2018-10-14 11:48] LABS: HB2 TOTAL 10.9 g/dL; HEMOGLOBIN A1C 0.55 g/dL; HEMOGLOBIN A1C % 6.8 % (4.6-6.2)
[2018-10-14 12:32] LABS: THYROID STIMULATING HORMONE 2.72 uIU/mL (0.34-5.60)
[2018-10-14 12:34] LABS: FREE T4 (FREE THYROXINE) 1.42 ng/dL (0.58-1.64)
== END 2018-10-14 10:46 | disposition home or self-care (01) ==
LOC: DI 10:45
PROVIDERS: ATTEND Nurse Practitioner
DX: R07.9 Chest pain, unspecified (principal); I48.0 Paroxysmal atrial fibrillation; J90 Pleural effusion, not elsewhere classified; I34.0 Nonrheumatic mitral (valve) insufficiency; R06.01 Orthopnea; E11.9 Type 2 diabetes mellitus without complications; I10 Essential (primary) hypertension; E03.9 Hypothyroidism, unspecified
CPT/HCPCS: 36415; 80048; 80061; 82043; 83036; 83721; 83880; 84439; 84443; 84481; 85025; 93306

== ENCOUNTER 2019-01-06 17:19 | Outpatient (CLI) | payer MEDICARE, OTHER ==
[2019-01-06 17:59] LABS: BASOPHILS % (AUTO) 0.5 %; EOSINOPHILS # (AUTO) 0.1 10^3/uL (0.0-0.7); EOSINOPHILS % (AUTO) 1.6 %; HGB - HEMOGLOBIN 11.1 g/dL (12.0-16.0); LYMPHOCYTES # (AUTO) 1.3 10^3/uL (1.5-3.5); LYMPHOCYTES % (AUTO) 20.9 %; MEAN CORPUSCULAR HEMOGLOBIN 29.1 pg (27.0-31.0); MEAN PLATELET VOLUME 9.5 fL (7.9-10.8); MONOCYTES # (AUTO) 0.5 10^3/uL (0.0-1.0); MONOCYTES % (AUTO) 8.2 %; NEUTROPHILS # (AUTO) 4.2 10^3/uL (1.5-6.6); NEUTROPHILS % (AUTO) 68.3 %; PLT - PLATELET COUNT 257 10^3/uL (130-450); RED BLOOD COUNT 3.81 10^6/uL (4.20-5.40); RED CELL DISTRIBUTION WIDTH 15.6 % (12.0-15.0); WHITE BLOOD COUNT 6.1 x10^3/uL (4.8-10.8)
[2019-01-06 18:04] LABS: CALCIUM 9.2 mg/dL (8.5-10.3); CREATININE 0.9 mg/dL (0.4-1.0)
[2019-01-06 18:12] LABS: HB2 TOTAL 11.3 g/dL; HEMOGLOBIN A1C 0.54 g/dL; HEMOGLOBIN A1C % 6.5 % (4.6-6.2)
== END 2019-01-06 17:20 | disposition home or self-care (01) ==
LOC: LAB 17:19
PROVIDERS: ATTEND Family Medicine
DX: I50.9 Heart failure, unspecified (principal); I48.91 Unspecified atrial fibrillation; R63.5 Abnormal weight gain; E11.9 Type 2 diabetes mellitus without complications
CPT/HCPCS: 36415; 80048; 83036; 85025

== ENCOUNTER 2019-01-27 14:16 | Outpatient (CLI) | payer MEDICARE, OTHER ==
--- NOTE | 2019-01-28 13:54 | Mammography Report ---
Reason: ROUTINE MAMMO Procedure Date: 01/27/2019 Accession Number: [id number] / [id number] Procedure: [facility] - Screening Mammo Dig Bilat CPT Code: Final Report FULL RESULT: EXAM: Screening Mammo Dig Bilat DATE: 01/27/2019 3:18 PM CLINICAL HISTORY: Routine screening; personal history of left breast cancer TECHNIQUE: (B) - Bilateral CC and MLO views were obtained. COMPARISON: 12/30/2016, 09/03/2015, 07/07/2014, 01/17/2014, 05/31/2013, 10/21/2012 PARENCHYMAL PATTERN: (A) - The breasts demonstrate scattered fibroglandular densities bilaterally. FINDINGS: No significant interval change on the left. Posttreatment findings are stable. There are no suspicious masses, calcifications, or areas of distortion. On the right there is a small cluster of 5 calcifications seen at approximately the 1:00 position middle third for which magnification views are suggested. A few new punctate calcifications are also seen in the right axilla. IMPRESSION: Incomplete examination. BI-RADS category 0. Needs additional evaluation right breast by magnification views. Stable appearance left breast compared with priors. RECOMMENDATION: (ADDMAM) - Recommend additional mammographic views. Right breast BI-RADS CATEGORY: (0) - Incomplete Examination - need additional evaluation. STANDARD QUALIFYING STATEMENTS: 1. This examination was not reviewed with the aid of Computer-Aided Detection (CAD). 2. A negative or benign imaging report should not preclude biopsy if clinically suspicious findings are present. 3. Dense breasts may obscure an underlying neoplasm. 4. This examination was reviewed without the aid of 3D breast imaging (tomosynthesis).
== END 2019-01-27 14:17 | disposition home or self-care (01) ==
LOC: DI.N 14:16
PROVIDERS: ATTEND Internal Medicine Hematology & Oncology
DX: Z12.31 Encounter for screening mammogram for malignant neoplasm of breast (principal); R92.1 Mammographic calcification found on diagnostic imaging of breast; Z85.3 Personal history of malignant neoplasm of breast
CPT/HCPCS: 77067

== ENCOUNTER 2019-02-22 03:38 | Outpatient (CLI) | payer MEDICARE, OTHER | END 2019-02-22 03:39 | disposition critical access hospital (66) | LOC: EMS 03:38 | PROVIDERS: ATTEND Surgery | DX: R41.0 Disorientation, unspecified (principal) | CPT/HCPCS: A0425; A0429 ==

== ENCOUNTER 2019-02-22 03:59 | Emergency (ER) | payer MEDICARE, OTHER ==
[2019-02-22 05:08] LABS: BASOPHILS # (AUTO) 0.1 10^3/uL (0.0-0.1); BASOPHILS % (AUTO) 0.8 %; EOSINOPHILS # (AUTO) 0.1 10^3/uL (0.0-0.7); EOSINOPHILS % (AUTO) 1.3 %; LYMPHOCYTES # (AUTO) 1.1 10^3/uL (1.5-3.5); LYMPHOCYTES % (AUTO) 17.2 %; MEAN CORPUSCULAR HEMOGLOBIN 27.2 pg (27.0-31.0); MEAN CORPUSCULAR HGB CONC 29.6 g/dL (32.0-36.0); MEAN CORPUSCULAR VOLUME 91.9 fL (81.0-99.0); MEAN PLATELET VOLUME 10.2 fL (7.9-10.8); MONOCYTES # (AUTO) 0.5 10^3/uL (0.0-1.0); NEUTROPHILS # (AUTO) 4.5 10^3/uL (1.5-6.6); NEUTROPHILS % (AUTO) 72.4 %; PLT - PLATELET COUNT 236 10^3/uL (130-450); RED BLOOD COUNT 4.05 10^6/uL (4.20-5.40); WHITE BLOOD COUNT 6.2 x10^3/uL (4.8-10.8)
[2019-02-22 05:15] LABS: ALBUMIN 3.6 g/dL (3.2-5.5); ALBUMIN/GLOBULIN RATIO 1.3 (1.0-2.2); BILIRUBIN,TOTAL 0.8 mg/dL (0.2-1.0); CALCIUM 9.1 mg/dL (8.5-10.3); CREATININE 1.1 mg/dL (0.4-1.0); TOTAL PROTEIN 6.4 g/dL (6.7-8.2)
--- NOTE | 2019-02-22 05:18 | ED Physician Documentation ---
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 No: Recent med change, Substance abuse, Known psych illness, Known dementia Basline status: Alert and oriented X 3, Ambulatory, Independent Similar symptoms before: No diagnosis Recently seen: Not recently seen Review of Systems Constitutional: reports: Reviewed and negative Eyes: reports: Reviewed and negative Ears: reports: Reviewed and negative Nose: reports: Reviewed and negative Throat: reports: Reviewed and negative Cardiac: reports: Reviewed and negative Respiratory: reports: Reviewed and negative GI: reports: Reviewed and negative : denies: Dysuria, Frequency Skin: reports: Reviewed and negative Musculoskeletal: reports: Reviewed and negative Neurologic: reports: Difficulty speaking (patient describes an episode lasting several minutes yesterday when she could not verbally express the thoughts she had ; she says they came out as garbled, unintelligible noises. she says this lasted several minutes but resolved entirely), Confused. 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 BYPRODUCTS: Hysterectomy, Other HEENT: Cataracts - Present Medications Home Medications: Ambulatory Orders Medication Instructions Recorded Confirmed Terazosin [Hytrin] 5 mg PO BID 08/11/12 12/01/17 Levothyroxine [Synthroid] 0.175 mg PO QDAC 10/06/12 12/01/17 Losartan [Cozaar] 100 mg PO DAILY 10/06/12 12/01/17 Multivitamin [Multivitamins] 1 each PO DAILY 10/06/12 12/01/17 Potassium Chloride [Micro-K] 20 meq PO BIDWM 10/06/12 12/01/17 carvediloL [Coreg] 25 mg PO BID 10/06/12 12/01/17 Glimepiride 4 mg PO BID 01/17/15 12/01/17 Oxybutynin Chloride [Ditropan Xl] 15 mg PO DAILY 10/23/17 12/01/17 Apixaban [Eliquis] 5 mg BID 02/22/19 02/22/19 Atorvastatin [Lipitor] 20 mg DAILY PM 02/22/19 02/22/19 Omeprazole 2 tab BID 02/22/19 02/22/19 metFORMIN [Glucophage] 250 mg BID 02/22/19 02/22/19 - Allergies Allergies/Adverse Reactions: Allergies Allergy/AdvReac Type Severity Reaction Status Date / Time codeine [Codeine] Allergy Unknown Rash Verified 08/18/18 16:08 shellfish derived AdvReac Unknown Unknown Verified 08/18/18 16:08 - Social History Does the pt smoke?: No Smoking Status: Former smoker Does the pt drink ETOH?: No Does the pt have substance abuse?: No - Immunizations Immunizations are current?: Yes - POLST Patient has POLST: No POLST Status: Full Code PD ED PE NORMAL - Vitals Vital signs reviewed: Yes - General General: No acute distress, Well developed/nourished, Other (pleasant, conversant, good eye contact, oriented x 2 (year is 2000, then makes other attempts to answer with what sounds like guesses, more asking than stating years)) - HEENT HEENT: PERRL, EOMI, Moist mucous membranes - Neck Neck: Supple, no meningeal sign - Respiratory Respiratory: No respiratory distress, Clear bilaterally - Abdomen Abdomen: Soft, Non tender - Derm Derm: Normal color, Warm and dry - Extremities Extremities: No edema - Neuro Neuro: radiopharmacist 2-12 intact, No motor deficit, No sensory deficit, Normal speech Eye Opening: Spontaneous Motor: Obeys Commands Verbal: Confused GCS Score: 14 - Psych Psych: Normal mood, Normal affect PD ED PE EXPANDED - Cardiac Cardiac: Tachy, Irregularly irregular Results - Vitals Vitals: Oxygen O2 Source [With Activity] Room air O2 Source [Without Activity] Room air O2 Source Room air - EKG (time done) No standard instances Rate: Rate (enter#) (122) Rhythm: Atrial fibrillation [place]: Normal Ischemia: Normal ST segments, Q waves (V1, V2) - Labs Labs: Laboratory Tests 02/22/19 02/22/1902/22/19 04:20 04:20 05:01 WBC 6.2 RBC 4.05 L Hgb 11.0 L Hct 37.2 MCV 91.9 MCH 27.2 MCHC 29.6 L RDW 17.0 H Plt Count 236 MPV 10.2 Neut # (Auto) 4.5 Lymph # (Auto) 1.1 L Campbell # (Auto) 0.5 Eos # (Auto) 0.1 Baso # (Auto) 0.1 Absolute Nucleated RBC 0.00 Nucleated RBC % 0.0 Sodium 140 Potassium 3.9 Chloride 101 Carbon Dioxide 29 Anion Gap 10.0 BUN 21 H Creatinine 1.1 H Estimated GFR (MDRD) 48 L Glucose 158 H Calcium 9.1 Total Bilirubin 0.8 AST 16 ALT 20 Alkaline Phosphatase 79 Total Protein 6.4 L Albumin 3.6 Globulin 2.8 Albumin/Globulin Ratio 1.3 Lipase 24 TSH 4.42 Urine Color Urine Clarity Urine pH Ur Specific [place] Urine Protein Urine Glucose (UA) Urine Ketones Urine Occult Blood Urine Nitrite Urine Bilirubin Urine Urobilinogen Ur Leukocyte Esterase Ur Microscopic Review Urine Culture Comments Urine Opiates Screen Ur Oxycodone Screen Urine Methadone Screen Ur Propoxyphene Screen Ur Barbiturates Screen Ur Tricyclics Screen Ur Phencyclidine Scrn Ur Amphetamine Screen U Methamphetamines Scrn U Benzodiazepines Scrn Urine Cocaine Screen U Cannabinoids Screen Ethyl Alcohol 02/22/19 02/22/19 02/22/19 05:01 07:18 07:18 WBC RBC Hgb Hct MCV MCH MCHC RDW Plt Count MPV Neut # (Auto) Lymph # (Auto) [place] # (Auto) Eos # (Auto) Baso # (Auto) Absolute Nucleated RBC Nucleated RBC % Sodium Potassium Chloride Carbon Dioxide Anion Gap BUN Creatinine Estimated GFR (MDRD) Glucose Calcium Total Bilirubin AST ALT Alkaline Phosphatase Total Protein Albumin Globulin Albumin/Globulin Ratio Lipase TSH Urine Color YELLOW Urine Clarity CLEAR Urine pH 7.5 Ur Specific [place] 1.010 Urine Protein NEGATIVE Urine Glucose (UA) NEGATIVE Urine Ketones NEGATIVE Urine Occult Blood NEGATIVE Urine Nitrite NEGATIVE Urine Bilirubin NEGATIVE Urine Urobilinogen 0.2 (NORMAL) Ur Leukocyte Esterase NEGATIVE Ur Microscopic Review NOT INDICATED Urine Culture Comments NOT INDICATED Urine Opiates Screen NEGATIVE Ur Oxycodone Screen NEGATIVE Urine Methadone Screen NEGATIVE Ur Propoxyphene Screen NEGATIVE Ur Barbiturates Screen NEGATIVE Ur Tricyclics Screen NEGATIVE Ur Phencyclidine Scrn NEGATIVE Ur Amphetamine Screen NEGATIVE U Methamphetamines Scrn NEGATIVE U Benzodiazepines Scrn NEGATIVE Urine Cocaine Screen NEGATIVE U Cannabinoids Screen NEGATIVE Ethyl Alcohol < 5.0 - Rads (name of study) CT head Radiology: Prelim report reviewed, See rad report PD MEDICAL DECISION MAKING - ED course Complexity details: reviewed results, re-evaluated patient, considered differential, d/w patient, d/w family ED course: patient called 911 tonight because she believed that her was a stranger who had broken into the house. She was clearly confused as this was her of nine years, but her mental status has improved on route to the emergency department. Her says that her baseline is AAO3, but he says she has had similar, but milder and briefer episodes with increasing frequency over the past few weeks or months. I note that patient was admitted to this hospital in 2014 for suspected TIA. Her hospital course was complicated by recurrent symptoms that varied in location and side of the body involved. The notes reflect that she eventually became quite confused and very combative and was eventually transferred to [facility]. Records from that visit were requested from [facility] but did not arrive via fax until shortly after patient was discharged from this ( today) ER visit. these records reflect a very similar mental status as patient exhibits in emergency department today, which is awake, alert, and oriented times two with some mild confusion that waxes and wanes in severity (but never more than mild). it is also interesting to note that the notes from [facility] indicate that at that time patient had been on chronic opiates, had recently stopped, but also had been taking some of her husbands prescribe medications as well. The notes from [facility] indicate that no specific nor conclusive diagnosis was reached and thats the cause for confusion at that time was not established, but those notes reflect that this had already been a pattern of episode of confusion noted by other family members as well, and early dementia was a suspected diagnosis as it is on this visit.? after tests resulted, patient repeatedly expressed strong desire to be discharged home. She is awake, alert, pleasant, converses appropriately and is oriented times two in that she still does not know what year it is. she identifies her , although she seems uncertain if she believes it or is just reflecting what is being told to her. After d/w , he is initially willing to take her home, which I believe is appropriate. subsequently, he expresses concern that she will revert to not recognizing him and becoming angry and argumentative as she did earlier tonight, and that he feels she is not yet back to baseline mental status. I d/w Dr. Garcia for admission but as soon as this conversation regarding the patient had finished, the approached me and said he prefers to take her home. He understands that he needs to f/u with her PMD as soon as can be arranged (for possible further testing, as well as to discuss options for long-term care if it is felt to be indicated). He also understands that he can bring her back or call 911 at any time he feels she needs emergent reevaluation. Departure - Departure Disposition: 01 Home, Self Care Clinical Impression: Confusion Condition: Good Instructions: ED Confusion Follow-Up: Elijah Gee MD [Primary Care Provider] - Within 3 Days Discharge Date/Time: 02/22/19 08:53
--- NOTE | 2019-02-22 06:09 | CT Report ---
Reason: AMS Procedure Date: 02/22/2019 Accession Number: [id number] / [id number] Procedure: CT - HEAD WO CPT Code: Final Report FULL RESULT: EXAM: CT HEAD EXAM DATE: 02/22/2019 05:56 AM. CLINICAL HISTORY: AMS. COMPARISON: HEAD W/O 10/06/2018 4:53 PM. TECHNIQUE: Multiaxial CT images were obtained from the foramen magnum to the vertex. Reformats: Sagittal and coronal. IV contrast: None. In accordance with CT protocol optimization, one or more of the following dose reduction techniques were utilized for this exam: automated exposure control, adjustment of mA and/or KV based on patient size, or use of iterative reconstructive technique. FINDINGS: Parenchyma: No intraparenchymal hemorrhage. No evidence of mass, midline shift, or CT findings of acute infarction. Cortes-white differentiation is distinct. Stable encephalomalacia in the right frontal lobe. Diffuse chronic microangiopathic white matter changes are evident. Extraaxial Spaces: Normal for age. No subdural or epidural collections identified. Ventricles: The ventricles and cortical sulci are enlarged, consistent with age-related tissue loss. Sinuses and orbits: Imaged paranasal sinuses, orbits, and mastoids show no significant abnormality. Bones: No evidence of fracture or calvarial defect. Other: None. IMPRESSION: Generalized age-related cortical atrophic changes and chronic ischemic changes without evidence of acute intracranial abnormality. RADIA
[2019-02-22 07:16] VITALS: BP 157/83
[2019-02-22 07:26] LABS: BILIRUBIN,URINE NEGATIVE (NEGATIVE); GLUCOSE, URINE (UA) NEGATIVE (NEGATIVE); KETONES,URINE (UA) NEGATIVE (NEGATIVE); LEUKOCYTE ESTERASE, URINE NEGATIVE (NEGATIVE); NITRITE,URINE NEGATIVE (NEGATIVE); OCCULT BLOOD,URINE NEGATIVE (NEGATIVE); PH,URINE 7.5 PH (5.0-7.5); PROTEIN,URINE NEGATIVE (NEGATIVE); UROBILINOGEN,URINE 0.2 (NORMAL) E.U./dL (NORMAL)
[2019-02-22 07:29] LABS: CLARITY,URINE CLEAR (CLEAR)
[2019-02-22 12:22] LABS: MUDS CUTOFF CONCENTRATIONS CUTOFF CONC BELOW:
[2019-02-22 12:37] LABS: AMPHETAMINE SCREEN,URINE NEGATIVE (NEGATIVE); BENZODIAZEPINES SCREEN, URINE NEGATIVE (NEGATIVE); COCAINE SCREEN URINE NEGATIVE (NEGATIVE); METHADONE SCREEN, URINE NEGATIVE (NEGATIVE); METHAMPHETAMINES SCREEN, URINE NEGATIVE (NEGATIVE); OPIATE SCREEN, URINE NEGATIVE (NEGATIVE); OXYCODONE SCREEN, URINE NEGATIVE (NEGATIVE); PROPOXYPHENE SCREEN, URINE NEGATIVE (NEGATIVE); TRICYCLIC ANTIDEPRESSANT,URINE NEGATIVE (NEGATIVE)
== END 2019-02-22 08:53 | disposition home or self-care (01) ==
LOC: EDUNIT# → ED 03:59
DX: R41.0 Disorientation, unspecified (principal); R47.89 Other speech disturbances; F03.90 Unspecified dementia, unspecified severity, without behavioral disturbance, psychotic disturbance, mood disturbance, and anxiety; I10 Essential (primary) hypertension; Z87.891 Personal history of nicotine dependence; Z79.01 Long term (current) use of anticoagulants
CPT/HCPCS: 36415; 70450; 80053; 80306; 80320; 81001; 81003; 83690; 84443; 85025; 87086; 93005; 99283; 99284

== ENCOUNTER 2019-03-09 14:41 | Outpatient (CLI) | payer MEDICARE, OTHER ==
[2019-03-09 19:10] LABS: CALCIUM 9.7 mg/dL (8.5-10.3); CREATININE 1.1 mg/dL (0.4-1.0)
== END 2019-03-09 23:59 | disposition home or self-care (01) ==
LOC: LAB.N 14:41
PROVIDERS: ATTEND Family Medicine
DX: I48.0 Paroxysmal atrial fibrillation (principal); J90 Pleural effusion, not elsewhere classified
CPT/HCPCS: 36415; 80048

== ENCOUNTER 2019-04-26 08:35 | Outpatient (CLI) | payer MEDICARE, OTHER ==
[2019-04-26 09:01] LABS: CALCIUM 9.1 mg/dL (8.5-10.3)
== END 2019-04-26 08:36 | disposition home or self-care (01) ==
LOC: LAB 08:35
PROVIDERS: ATTEND Family Medicine
DX: I48.91 Unspecified atrial fibrillation (principal); J90 Pleural effusion, not elsewhere classified
CPT/HCPCS: 36415; 80048

== ENCOUNTER 2019-04-26 08:53 | Outpatient (CLI) | payer MEDICARE, OTHER ==
--- NOTE | 2019-04-26 12:11 | Mammography Report ---
Reason: ABN MAMMO - SPC VIEWS RT Procedure Date: 04/26/2019 Accession Number: [id number] / [id number] Procedure: GEOVANI - Diagnostic Dig RT CPT Code: Final Report FULL RESULT: EXAM: Diagnostic Dig RT DATE: 04/26/2019 9:55 AM CLINICAL HISTORY: Diagnostic examination. The patient is recalled from screening mammogram for calcifications. TECHNIQUE: (R) - Right spot magnified CC, LM and spot magnified LM views are obtained. COMPARISON: 01/27/2019 through 11/27/2006. PARENCHYMAL PATTERN: (A) - The breast(s) demonstrate(s) scattered fibroglandular densities. FINDINGS: The previously identified new grouping of calcifications in the right breast demonstrates no convincing pleomorphism and is probably benign, 8.1 cm from the nipple 12:00 position. There are no suspicious masses, calcifications, or areas of distortion. IMPRESSION: Probably Benign. BI-RADS category 3. RECOMMENDATION: (6MOS) - Recommend 6 month follow-up exam. Diagnostic mammogram right breast. BI-RADS CATEGORY: (3) - Probably Benign. STANDARD QUALIFYING STATEMENTS: 1. This examination was not reviewed with the aid of Computer-Aided Detection (CAD). 2. A negative or benign imaging report should not preclude biopsy if clinically suspicious findings are present. 3. Dense breasts may obscure an underlying neoplasm. 4. This examination was reviewed with the aid of 3D breast imaging (tomosynthesis).
== END 2019-04-26 08:54 | disposition home or self-care (01) ==
LOC: DI 08:53
PROVIDERS: ATTEND Internal Medicine Hematology & Oncology
DX: R92.1 Mammographic calcification found on diagnostic imaging of breast (principal); I48.91 Unspecified atrial fibrillation; J90 Pleural effusion, not elsewhere classified
CPT/HCPCS: 36415; 80048

== ENCOUNTER 2019-06-30 11:48 | Outpatient (CLI) | payer MEDICARE, OTHER | END 2019-06-30 11:49 | disposition critical access hospital (66) | LOC: EMS 11:48 | PROVIDERS: ATTEND Surgery | DX: R06.02 Shortness of breath (principal); R05 Cough | CPT/HCPCS: A0425; A0429 ==

== ENCOUNTER 2019-06-30 12:18 | Inpatient (IN) | payer MEDICARE, OTHER ==
[2019-06-30 12:36] LABS: BASOPHILS % (AUTO) 0.1 %; EOSINOPHILS # (AUTO) 0.2 10^3/uL (0.0-0.7); LYMPHOCYTES # (AUTO) 0.3 10^3/uL (1.5-3.5); LYMPHOCYTES % (AUTO) 3.6 %; MEAN CORPUSCULAR HEMOGLOBIN 29.5 pg (27.0-31.0); MEAN CORPUSCULAR HGB CONC 30.9 g/dL (32.0-36.0); MEAN CORPUSCULAR VOLUME 95.3 fL (81.0-99.0); MEAN PLATELET VOLUME 10.1 fL (7.9-10.8); MONOCYTES # (AUTO) 0.7 10^3/uL (0.0-1.0); MONOCYTES % (AUTO) 8.6 %; NEUTROPHILS # (AUTO) 7.1 10^3/uL (1.5-6.6); NEUTROPHILS % (AUTO) 85.2 %; PLT - PLATELET COUNT 184 10^3/uL (130-450); RED BLOOD COUNT 4.07 10^6/uL (4.20-5.40); RED CELL DISTRIBUTION WIDTH 17.3 % (12.0-15.0); WHITE BLOOD COUNT 8.4 x10^3/uL (4.8-10.8)
[2019-06-30 12:50] LABS: ALBUMIN 3.6 g/dL (3.2-5.5); BILIRUBIN,TOTAL 1.2 mg/dL (0.2-1.0); CALCIUM 8.9 mg/dL (8.5-10.3); CREATININE 1.1 mg/dL (0.4-1.0); TOTAL PROTEIN 7.2 g/dL (6.7-8.2)
--- NOTE | 2019-06-30 13:02 | XRAY Report ---
Reason: Chest pain Procedure Date: 06/30/2019 Accession Number: [id number] / [id number] Procedure: XR - Chest 1 View X-Ray CPT Code: 48642 Final Report FULL RESULT: EXAM: CHEST RADIOGRAPHY EXAM DATE: 06/30/2019 12:48 PM. CLINICAL HISTORY: Chest pain. COMPARISON: Chest radiograph from 09/09/2018. Chest CT from 10/09/2017. TECHNIQUE: 1 view. FINDINGS: Lungs/Pleura: There is increasing bibasilar consolidation and patchy airspace opacity with perihilar and basilar distribution. There are small bilateral pleural effusions, which are increased from the prior examination. There is calcification along the base of the right hemithorax and irregular density in the left midlung, likely corresponding to pleural plaques seen on CT. No pneumothorax. Mediastinum: There is obscuration of the cardiomediastinal contour. Pulmonary vasculature appears engorged and indistinct. Other: Surgical clips project over the left breast. IMPRESSION: 1. Findings suggesting mild CHF/fluid overload with enlarging small bilateral pleural effusions. 2. Bibasilar consolidation may represent atelectasis associated with pleural effusions. However, superimposed infiltrate would be difficult to exclude. 3. 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 RADIA
[2019-06-30] MEDS ORDERED: FUROSEMIDE 40 MG/4 ML VIAL IVP STA (13:31)
--- NOTE | 2019-06-30 13:44 | ED Physician Documentation ---
PD HPI DYSPNEA - Stated complaint Stated Complaint: SOA - Chief complaint Chief Complaint: Resp - History obtained from History obtained from: Patient - History of Present Illness Timing - details: Gradual onset, Still present Improved by: Sitting up Associated symptoms: Bilateral edema (Mrs. Danielle is a 79-year-old female who is a FULL CODE. She is here today with a one-week history of progressive dyspnea and cough. She does have a history of CHF. She has atrial for ablation and takes Eliquis for this. She states She was given a water pill by her primary physician this past week to help with this. However her symptoms have worsened. She does have a history of lower leg edema and that has also progressing. Patient denies any recent runny nose, sinus congestion, chills, fever, or sore throat. She denies any chest pain or palpitations. She denies any abdominal pain, nausea, vomiting, or diarrhea. Patient lives at home. She has a history of diabetes, CHF, and hypertension. She states she is a FULL CODE.). No: Fever, Chest pain / discomfort, Palpitations, Diaphoresis Review of Systems Constitutional: denies: Fever, Chills, Reviewed and negative Eyes: denies: Loss of vision, Photophobia Ears: denies: Loss of hearing, Ear pain Nose: denies: Rhinorrhea / runny nose, Congestion, Sinus pressure / pain Throat: denies: Dental pain / toothache Cardiac: reports: Pedal edema. denies: Chest pain / pressure, Palpitations, Calf pain Respiratory: reports: Dyspnea, Cough, Other (Positive for Orthopnea). denies: Hemoptysis, Wheezing GI: denies: Abdominal Pain, Abdominal Swelling, Nausea, Vomiting, Constipation, Diarrhea : denies: Dysuria, Frequency, Unable to Void Skin: denies: Rash, Abrasion (s), Laceration (s) Musculoskeletal: reports: Extremity swelling. denies: Neck pain, Back pain, Extremity pain, Joint pain Neurologic: reports: Generalized weakness. 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 : 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 HEENT: None Psych: None Musculoskeletal: Osteoarthritis Derm: None - Past Surgical History Past Surgical History: Yes General: Colonoscopy, EGD Ortho: Hip replacement, Spine surgery /CHAIN SAW OPERATOR: Hysterectomy, Other HEENT: Cataracts - Present Medications Home Medications: Ambulatory Orders Medication Instructions Recorded Confirmed Terazosin [Hytrin] 5 mg PO BID 08/11/12 06/30/19 Levothyroxine [Synthroid] 0.175 mg PO QDAC 10/06/12 06/30/19 Losartan [Cozaar] 100 mg PO DAILY PM 10/06/12 06/30/19 Multivitamin [Multivitamins] 1 each PO DAILY 10/06/12 06/30/19 Potassium Chloride [Micro-K] 20 meq PO BIDWM 10/06/12 06/30/19 carvediloL [Coreg] 25 mg PO BID 10/06/12 06/30/19 Glimepiride 2 mg PO BID 01/17/15 06/30/19 Oxybutynin Chloride [Ditropan Xl] 15 mg PO DAILY PM 10/23/17 06/30/19 Apixaban [Eliquis] 5 mg BID 02/22/19 06/30/19 Atorvastatin [Lipitor] 20 mg PO DAILY PM 02/22/19 06/30/19 metFORMIN [Glucophage] 250 mg PO BID 02/22/19 06/30/19 - Allergies Allergies/Adverse Reactions: Allergies Allergy/AdvReac Type Severity Reaction Status Date / Time codeine [Codeine] Allergy Unknown Rash Verified 08/18/18 16:08 shellfish derived AdvReac Unknown Unknown Verified 08/18/18 16:08 - Social History Does the pt smoke?: No Smoking Status: Never smoker Does the pt drink ETOH?: No Does the pt have substance abuse?: No - Immunizations Immunizations are current?: Yes - POLST Patient has POLST: No POLST Status: Full Code PD ED PE NORMAL - Vitals Vital signs reviewed: Yes - General General: Alert and oriented X 3, Well developed/nourished, Other (Patient is ill-appearing however nontoxic.) - HEENT HEENT: Atraumatic - Neck Neck: Supple, no meningeal sign - Cardiac Cardiac: No murmur, Other (+3 pretibial edema is present bilaterally.) - Respiratory Respiratory: Other (She is tachypneic at 24 to 28 breaths/min. She has bilateral crackles throughout the lung kirby. No wheezes or rhonchi were noted. She is able to complete her sentences with moderate difficulty.) - Abdomen Abdomen: Normal bowel sounds, Non tender - Extremities Extremities: No deformity, No tenderness to palpate - Neuro Neuro: Alert and oriented X 3, No motor deficit, No sensory deficit, Normal speech Eye Opening: Spontaneous Motor: Obeys Commands Verbal: Oriented GCS Score: 15 Results - Vitals Vitals: Vital Signs - 24 hr 06/30/19 06/30/19 06/30/19 12:29 13:55 14:20 Temperature 36.3 C L Heart Rate 117 H 101 H 110 H Respiratory 24 24 26 H Rate Blood Pressure 165/116 H 143/93 H 163/112 H O2 Saturation 100 100 92 06/30/19 15:06 Temperature Heart Rate 109 H Respiratory 22 Rate Blood Pressure 143/101 H O2 Saturation 90 L Oxygen O2 Source [With Activity] Room air O2 Source [Without Activity] Room air O2 Source Room air Oxygen Flow Rate 2 - EKG (time done) 1245 Rate: Tachy Rhythm: Atrial fibrillation [place]: Normal QRS: Normal Ischemia: Normal ST segments Computer interpretation: Agree with computer - Labs Labs: Laboratory Tests 06/30/19 06/30/19 06/30/19 12:26 12:26 12:26 WBC 8.4 RBC 4.07 L Hgb 12.0 Hct 38.8 MCV 95.3 MCH 29.5 MCHC 30.9 L RDW 17.3 H Plt Count 184 MPV 10.1 Neut # (Auto) 7.1 H Lymph # (Auto) 0.3 L [place] # (Auto) 0.7 Eos # (Auto) 0.2 Baso # (Auto) 0.0 Absolute Nucleated RBC 0.00 Nucleated RBC % 0.0 Sodium 140 Potassium 4.0 Chloride 104 Carbon Dioxide 28 Anion Gap 8.0 BUN 22 H Creatinine 1.1 H Estimated GFR (MDRD) 48 L Glucose 158 H Lactic Acid Calcium 8.9 Total Bilirubin 1.2 H AST 24 ALT 26 Alkaline Phosphatase 89 Troponin I High Sens 7.4 B-Natriuretic Peptide Total Protein 7.2 Albumin 3.6 Globulin 3.6 Albumin/Globulin Ratio 1.0 Lipase 24 06/30/19 06/30/19 12:26 13:35 WBC RBC Hgb Hct MCV MCH MCHC RDW Plt Count MPV Neut # (Auto) Lymph # (Auto) [place] # (Auto) Eos # (Auto) Baso # (Auto) Absolute Nucleated RBC Nucleated RBC % Sodium Potassium Chloride Carbon Dioxide Anion Gap BUN Creatinine Estimated GFR (MDRD) Glucose Lactic Acid 1.3 Calcium Total Bilirubin AST ALT Alkaline Phosphatase Troponin I High Sens B-Natriuretic Peptide 1204 H Total Protein Albumin Globulin Albumin/Globulin Ratio Lipase PD MEDICAL DECISION MAKING - ED course Complexity details: reviewed old records, reviewed results, re-evaluated patient, considered differential, d/w patient, d/w family, other (Patient was staffed with attending ER physician. Per attending ER physician and 1/2 inch dose of nitro was provided. Patient was diuresed in the ER with 40 mg of Lasix. Patient remained tachypneic and tachycardic throughout the ER course. She was difficult to ambulate due to her tachypnea, she is also on covid19 precautions additionally. Her Covid19 test results are pending.I do believe hospital admission is required to improve patient status. She is agreeable to this. I did inform her who is in the waiting room of her test results, condition, status, and treatment plan.) Departure - Departure Disposition: ED Place in Observation Clinical Impression: CHF (congestive heart failure), Cough Condition: Stable
[2019-06-30] MEDS ORDERED: NITROGLYCERIN 2% PASTE TOP STA (13:56)
[2019-06-30] MEDS ORDERED: ONDANSETRON ODT 4 MG TABLET TL PRN (15:08)
[2019-06-30] MEDS ORDERED: ONDANSETRON 4 MG/2 ML VIAL IVP PRN (15:08)
[2019-06-30] MEDS ORDERED: ACETAMINOPHEN 325 MG TABLET PO PRN (15:08)
[2019-06-30] MEDS ORDERED: SODIUM CHLORIDE FLUSH 0.9% 10 ML SYRINGE IVP PRN (15:08)
[2019-06-30] MEDS ORDERED: oxyCODONE 5 MG TABLET PO PRN (15:08)
[2019-06-30] MEDS ORDERED: OXYBUTYNIN CHLORIDE 15 MG PO SCH (15:45)
--- NOTE | 2019-06-30 15:52 | HISTORY & PHYSICAL EXAMINATION ---
Chief Complaint - Chief Complaint Chief Complaint: SOB History of Present Illness - Admitted From Admitted From:: ER - History Obtained From History obtained from: Pt - History of Present Illness HPI Comment/Other: Mrs. 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 She report she had atrial for ablation for her afib and she takes Eliquis for this. She states she visit her PCP on last week, and She was given a water pill but no much help with this, instead of her symptoms have worsened. Patient denies fever, chill, sore throat, chest pain, palpitation, recent runny nose, sinus congestion, abdominal pain, nausea, vomiting, or diarrhea. Patient lives at home. Covid 19 test was ordered by ER. In Route lab test, pt has normal Troponin test, but with significant elevated BNP 1204, normal WBC. 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 pt is afebrile, with tachycardia at 117, BP at 165/116, 100% sat on 2 liter of O2 with RR 24. Discussed with pt about pt's care goal. pt request a FULL CODE. 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 Father- CAD Social History Notes: Has lived in [place] since 1959 when her was stationed her in the [employer]. She worked part-time at the [email or web address] and the [employer] while she raised 3 children. retired from the [employer] and then [employer]. Independent in ADLs, ambulates without assistance at home generally, but does have a walker leftover from her hip replacement that she uses occasionally on "uneven surfaces" because she sometimes "feels wobbly". Former smoker, 12 cigarettes/day x 28 years, quit in 1984. - Substance History Use: Uses substance without health or social issues: NONE - POLST Patient has POLST: No POLST Status: Full Code Meds/Allgy - Home Medications Home Medications: Ambulatory Orders Medication Instructions Recorded Confirmed Terazosin [Hytrin] 5 mg PO BID 08/11/12 06/30/19 Levothyroxine [Synthroid] 0.175 mg PO QDAC 10/06/12 06/30/19 Losartan [Cozaar] 100 mg PO DAILY PM 10/06/12 06/30/19 Multivitamin [Multivitamins] 1 each PO DAILY 10/06/12 06/30/19 Potassium Chloride [Micro-K] 20 meq PO BIDWM 10/06/12 06/30/19 carvediloL [Coreg] 25 mg PO BID 10/06/12 06/30/19 Glimepiride 2 mg PO BID 01/17/15 06/30/19 Oxybutynin Chloride [Ditropan Xl] 15 mg PO DAILY PM 10/23/17 06/30/19 Apixaban [Eliquis] 5 mg BID 02/22/19 06/30/19 Atorvastatin [Lipitor] 20 mg PO DAILY PM 02/22/19 06/30/19 metFORMIN [Glucophage] 250 mg PO BID 02/22/19 06/30/19 - Allergies Allergies/Adverse Reactions: Allergies Allergy/AdvReac Type Severity Reaction Status Date / Time codeine [Codeine] Allergy Unknown Rash Verified 08/18/18 16:08 shellfish derived AdvReac Unknown Unknown Verified 08/18/18 16:08 Review of Systems - Constitutional Constitutional: reports: Weakness. denies: Fatigue, Fever, Chills, Malaise, Poor appetite, Diaphoresis, Night sweats - Eyes Eyes: denies: Pain, Blurred vision, Spots in vision, Field loss, Vision loss, Dipolpia - Ears, Nose & Throat Ears, Nose & Throat: denies: Ear pain, Hearing aids, Vertigo, Nasal pain, Nasal discharge, Nosebleeds, Nasal obstruction, Nasal congestion, Sore throat, Mouth lesions - Cardiovascular Cariovascular: reports: Edema, Exertional dyspnea, Decr. exercise tolerance, Orthopnea. denies: Irregular heart rate, Palpitations, Chest pain, Lightheadedness, Syncope - Respiratory Respiratory: reports: SOB with exertion. denies: Cough, Sputum production, Wheezing, Snoring, Hemoptysis, Orthopnea, SOB at rest, Apnea - Gastrointestinal Gastrointestinal: denies: Abdominal pain, Abdominal distention, Constipation, Diarrhea, Change in bowel habits, Rectal bleeding, Black stools, Bloody stools, Nausea, Vomiting, Leeroy blood emesis, Coffee grounds emesis - Genitourinary Genitourinary: reports: 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. denies: Dysuria, Frequency, Urgency, Hematuria, Flank pain, Nocturia - Musculoskeletal Musculoskeletal: denies: Muscle pain, Back pain, Muscle aches, Stiffness, Limited range of motion, Muscle weakness - Integumentary Integumentary: denies: Rash, Pruritis, Lesions, Dryness, Lumps, Pigment changes - Neurological Neurological: denies: General weakness, Focal weakness, Headache, Dizziness, Numbness, Memory problems, Pre-existing deficit, Abnormal gait, Seizures, Incoordination, Slurred speech - Psychiatric Psychiatric: denies: Depression, Anxiety, Suicidal, Delusions, Hallucinations, Homicidal - Endocrine Endocrine: denies: Polyuria, Polydypsia, Polyphagia - Hematologic/Lymphatic Hematologic/Lymphatic: denies: Anemia, Bruising, Petechiae, Blood clots, Lymphadenopathy, Bleeding tendencies Exam - Vital Signs Vital Signs: Vital Signs x48h Temp Pulse Resp BP Pulse Ox 06/30/19 15:06 109 H 22 143/101 H 90 L 06/30/19 14:20 110 H 26 H 163/112 H 92 06/30/19 13:55 101 H 24 143/93 H 100 06/30/19 12:29 36.3 C L 117 H 24 165/116 H 100 - Physical Exam General Appearance: positive: No acute distress, Alert. negative: Lethargic Eyes Bilateral: positive: Normal inspection, PERRL, No lid inflammation ENT: positive: ENT inspection nml, Pharynx nml, No signs of dehydration. negat ranjit: Purulent nasal drainage Neck: positive: Nml inspection, Thyroid nml, No JVD, Trachea midline. negative: Thyromegaly, Lymphadenopathy (R), Lymphadenopathy (L), Stiff neck, Tracheal deviation Respiratory: positive: Chest non-tender, No respiratory distress, Rales. negative: Breath sounds nml, Wheezes, Rhonchi Cardiovascular: positive: No murmur, No gallop, Irregularly irregular, Tachycardia. negative: Regular rate & rhythm, Extrasystoles, Bradycardia, Systolic murmur, Diastolic murmur Peripheral Pulses: positive: 2+ Abdomen: positive: Non-tender, No organomegaly, Nml bowel sounds, No distention. negative: Tenderness, Guarding, Rebound Back: positive: Nml inspection. negative: CVA tenderness (R), CVA tenderness (L) Skin: positive: Color nml, No rash, Warm, Dry. negative: Cyanosis, Diaphoresis, Pallor, Skin rash Extremities: positive: Non-tender, Nml appearance, Pedal edema. negative: Calf tenderness, Shilpa's sign/cords Neurologic/Psychiatric: positive: Oriented x3, Motor nml, Sensation nml, Mood/affect nml. negative: Weakness, Sensory loss, Facial droop, Slurred/abnml speech, Depressed mood/affect Conclusion/Plan - Problem List (1) Acute on chronic congestive heart failure Conclusion/Plan: pt has elevated BNP, enlarging on small pleural effusion, orthopnea, bilateral lower extremities edema, all indicate acute on chronic CHF. pt had EF 50-55% on 09/2018 ECHO. plan: order new ECHO diuretics with IV of Lasix lab and tele monitor (2) Atrial fibrillation with rapid ventricular response Conclusion/Plan: pt has hx of afib, now her HR is 110-120. pt took Coreg at home. plan: resume home Coreg IV of Metoprolol PRN tele and vital monitor (3) Bilateral lower extremity edema Conclusion/Plan: pt report she had leg edema for couple of weeks. leg feel cold. she denies calf pain or erythema. pt took Eliquis at home. it is likely caused by acute on chronic CHF plan: diuretics with IV of Lasix, lab and vital monitor (4) Bilateral pleural effusion Conclusion/Plan: CXR reveals enlarging small bilateral pleural effusion, likely caused by worsen ing heart failure. pt has normal WBC, no fever or chill or cough. plan: diuretics, supplement of O2 as needed. vital monitor (5) Diabetes Conclusion/Plan: pt did not take insulin at home. pt state she just had "small diabetes". start SSI, ACHS, hypoglycemia protocol (6) HTN (hypertension) Conclusion/Plan: elevated BP, resume home meds Cozaar and Coreg, vital monitor (7) GERD (gastroesophageal reflux disease) Conclusion/Plan: pt has hx of GERD, start Protonix PO (8) HLD (hyperlipidemia) Conclusion/Plan: check lipid panel and resume home statin (9) Weakness Conclusion/Plan: pt present generalized weakness, consult with PT/OT - Lab Results Fish Bones: 06/30/19 12:26 06/30/19 12:26 Core Measures - Anticipated LOS I expect patient to be DC'd or transferred within 96 hours.: Yes - DVT/VTE - Prophylaxis VTE/DVT Device ordered at admit?: Yes VTE/DVT Prophylaxis med ordered at admit?: Yes
[2019-06-30] MEDS ORDERED: METOPROLOL 5 MG/5 ML VIAL IVP PRN (16:52)
--- NOTE | 2019-06-30 16:52 | PHARMACY PROGRESS NOTE ---
- Best Possible Medication History Admit Date and Time: 06/30/19 1508 Processed by: Nursing Medication History completed: Yes As the person ultimately responsible for medication therapy, providers are able to order a medication from an existing home medication list in [facility] via the "Reconcile Routine" prior to Confirmation of that medication by application support. Such practice is discouraged except when the physician, in their clinical judgment, deems that a medical need exists for a medication without regard to previous use.
[2019-06-30] MEDS: FUROSEMIDE 40 MG/4 ML VIAL IVP SCH (17:30)
[2019-06-30] MEDS: carvediloL 12.5 MG TABLET PO SCH ×2 (17:30→21:53)
[2019-06-30] MEDS: INSULIN ASPART 300 UNIT/3 ML PEN SUBQ SCH ×2 (17:30→21:53)
[2019-06-30] MEDS: SODIUM CHLORIDE FLUSH 0.9% 10 ML SYRINGE IVP SCH (17:31)
[2019-06-30] MEDS: LOSARTAN 50 MG TABLET PO SCH (17:37)
--- NOTE | 2019-06-30 17:44 | ADVANCE CARE PLANNING NOTE ---
Advance Care Planning - Planning Encounter Date: 06/30/19 Time: 17:00 Purpose: advance care plan Parties in Attendance: pt and me Decisional Capacity of the Patient: pt is alert and oriented plus four. she has full capacity to make her own decision. - Encounter Subjective/Patient's Story: pt report she has lived in [place] since 1959 when her was stationed her in the [employer]. She worked part-time at the [employer] and the [employer] while she raised 3 children. retired from the [employer] and then [employer]. Independent in ADLs, ambulates without assistance at home generally, but does have a walker leftover from her hip replacement that she uses occasionally on "uneven surfaces" because she sometimes "feels wobbly". Former smoker, 12 cigarettes/day x 28 years, quit in 1984. she clearly express she want DNR/DNI for her code status Objective/Medical Story: Mrs. 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
[2019-06-30] MEDS ORDERED: carvediloL 3.125 MG TABLET PO SCH (21:00)
[2019-06-30] MEDS ORDERED: carvediloL 12.5 MG TABLET PO SCH (21:00)
[2019-06-30] MEDS: TERAZOSIN 5 MG CAPSULE PO SCH (21:52)
[2019-06-30] MEDS: OXYBUTYNIN 5MG TABLET PO SCH (21:53)
[2019-06-30] MEDS: APIXABAN 5 MG TABLET PO SCH (21:53)
[2019-07-01] MEDS: SODIUM CHLORIDE FLUSH 0.9% 10 ML SYRINGE IVP SCH ×3 (00:42→17:00)
[2019-07-01 05:10] LABS: CALCIUM 8.5 mg/dL (8.5-10.3); CREATININE 1.3 mg/dL (0.4-1.0); MAGNESIUM 1.6 mg/dL (1.7-2.8)
[2019-07-01 05:18] LABS: CHOL/HDL RATIO 3.5 (<4.4); CHOLESTEROL 73 mg/dL; HDL CHOLESTEROL 21 mg/dL; LDL CHOLESTEROL,CALCULATED 37 mg/dL; LDL/HDL RATIO 1.8 (<4.4); VLDL CHOLESTEROL 15 mg/dL
[2019-07-01 05:47] LABS: HB2 TOTAL 11.6 g/dL; HEMOGLOBIN A1C 0.57 g/dL; HEMOGLOBIN A1C % 6.6 % (4.6-6.2)
[2019-07-01] MEDS: FUROSEMIDE 40 MG/4 ML VIAL IVP SCH ×2 (07:03→13:13)
[2019-07-01] MEDS: LEVOTHYROXINE 75 MCG TABLET PO SCH (07:04)
[2019-07-01] MEDS: LEVOTHYROXINE 100 MCG TABLET PO SCH (07:04)
[2019-07-01] MEDS: PANTOPRAZOLE 40 MG TABLET PO SCH (07:04)
[2019-07-01] MEDS: INSULIN ASPART 300 UNIT/3 ML PEN SUBQ SCH ×4 (08:23→20:34)
[2019-07-01] MEDS: carvediloL 12.5 MG TABLET PO SCH ×2 (08:34→20:33)
[2019-07-01] MEDS: MULTIVITAMIN TABLET PO SCH (08:35)
[2019-07-01] MEDS: OXYBUTYNIN 5MG TABLET PO SCH ×2 (08:35→20:33)
[2019-07-01] MEDS: TERAZOSIN 5 MG CAPSULE PO SCH ×2 (08:36→20:33)
[2019-07-01] MEDS: APIXABAN 5 MG TABLET PO SCH ×2 (08:36→20:32)
[2019-07-01] MEDS: LOSARTAN 50 MG TABLET PO SCH (08:36)
[2019-07-01] MEDS ORDERED: LOSARTAN 50 MG TABLET PO SCH ×2 (09:00→10:00)
[2019-07-01 11:10] LABS: BASOPHILS % (AUTO) 0.5 %; EOSINOPHILS # (AUTO) 1.2 10^3/uL (0.0-0.7); EOSINOPHILS % (AUTO) 19.2 %; HGB - HEMOGLOBIN 11.4 g/dL (12.0-16.0); LYMPHOCYTES # (AUTO) 0.3 10^3/uL (1.5-3.5); LYMPHOCYTES % (AUTO) 4.8 %; MEAN CORPUSCULAR HEMOGLOBIN 29.2 pg (27.0-31.0); MEAN CORPUSCULAR HGB CONC 30.8 g/dL (32.0-36.0); MEAN CORPUSCULAR VOLUME 94.9 fL (81.0-99.0); MEAN PLATELET VOLUME 9.5 fL (7.9-10.8); MONOCYTES # (AUTO) 0.5 10^3/uL (0.0-1.0); NEUTROPHILS # (AUTO) 4.4 10^3/uL (1.5-6.6); PLT - PLATELET COUNT 164 10^3/uL (130-450); RED CELL DISTRIBUTION WIDTH 17.4 % (12.0-15.0); WHITE BLOOD COUNT 6.4 x10^3/uL (4.8-10.8)
[2019-07-01 11:37] LABS: RBC MORPHOLOGY (MULTIPLE) 3+ ANISOCYTOSIS (NORMAL)
--- NOTE | 2019-07-01 12:56 | PROVIDER PROGRESS NOTE ---
Subjective - Prog Note Date Prog Note Date: 07/01/19 - Subjective Pt reports feeling: Improved Subjective: pt report she feel better than yesterday. she denies fever, chill, cough, chest pain. PT report pt's sats drop very fast when pt is just moving into the bedside edge. pt's Covid 19 test is negative on today Current Medications - Current Medications Current Medications: Active Medications Acetaminophen (Tylenol) 650 mg PO Q4HR PRN PRN Reason: Pain 1 to 4 Apixaban (Eliquis) 5 mg PO BID [facility] Last Admin: 07/01/19 08:36 Dose: 5 mg Carvedilol (Coreg) 25 mg PO BID [facility] Last Admin: 07/01/19 08:34 Dose: 25 mg Furosemide (Lasix Inj 40 Mg Vial) 40 mg IVP BIDDIURETIC [facility] Last Admin: 07/01/19 13:13 Dose: 40 mg Insulin Aspart (Novolog) 1 - 9 unit SUBQ 0800,1200,1700,2100 [facility]; Protocol Last Admin: 07/01/19 12:15 Dose: 1 unit Levothyroxine Sodium (Synthroid) 100 mcg PO QDAC [facility] Last Admin: 07/01/19 07:04 Dose: 100 mcg Levothyroxine Sodium (Synthroid) 75 mcg PO QDAC [facility] Last Admin: 07/01/19 07:04 Dose: 75 mcg Losartan Potassium (Cozaar) 100 mg PO DAILY [facility] Last Admin: 07/01/19 08:36 Dose: 100 mg Metoprolol Tartrate (Lopressor Inj) 5 mg IVP Q6H PRN PRN Reason: Tachycardia Multivitamins (Theragran) 1 tab PO DAILY [facility] Last Admin: 07/01/19 08:35 Dose: 1 tab Ondansetron HCl (Zofran Inj) 4 mg IVP Q6HR PRN PRN Reason: Nausea / Vomiting Ondansetron HCl (Zofran Odt) 4 mg TL Q6HR PRN PRN Reason: Nausea / Vomiting Oxybutynin Chloride (Ditropan) 5 mg PO BID [facility] Last Admin: 07/01/19 08:35 Dose: 5 mg Oxycodone HCl (Roxicodone) 5 mg PO Q4HR PRN PRN Reason: Pain 5 to 7 Pantoprazole Sodium (Protonix) 40 mg PO QDAC [facility] Last Admin: 07/01/19 07:04 Dose: 40 mg Sodium Chloride (Normal Saline Flush 0.9%) 10 ml IVP PRN PRN PRN Reason: NEEDED PER PROVIDER ORDERS Last Admin: 07/01/19 07:04 Dose: 10 ml Sodium Chloride (Normal Saline Flush 0.9%) 10 ml IVP 0100,0900,1700 [facility] Last Admin: 07/01/19 08:38 Dose: 10 ml Terazosin HCl (Hytrin) 5 mg PO BID [facility] Last Admin: 07/01/19 08:36 Dose: 5 mg Terazosin [Hytrin] 5 mg PO BID 08/11/12 Levothyroxine [Synthroid] 0.175 mg PO QDAC 10/06/12 Losartan [Cozaar] 100 mg PO DAILY PM 10/06/12 Multivitamin [Multivitamins] 1 each PO DAILY 10/06/12 Potassium Chloride [Micro-K] 20 meq PO BIDWM 10/06/12 carvediloL [Coreg] 25 mg PO BID 10/06/12 Glimepiride 2 mg PO BID 01/17/15 Oxybutynin Chloride [Ditropan Xl] 15 mg PO DAILY PM 10/23/17 Apixaban [Eliquis] 5 mg BID 02/22/19 Atorvastatin [Lipitor] 20 mg PO DAILY PM 02/22/19 metFORMIN [Glucophage] 250 mg PO BID 02/22/19 Objective - Vital Signs/Intake & Output Vital Signs: Vital Signs x48h Temp Pulse Resp BP Pulse Ox 07/01/19 11:23 36.2 C L 73 18 117/62 66 L 07/01/19 08:00 36.0 C L 83 20 148/81 H 96 07/01/19 07:04 36.0 C L 84 20 125/70 99 Intake & Output: Intake & Output 06/28/19 06/29/19 06/30/19 07/01/19 23:59 23:59 23:59 23:59 Intake Total 486 240 Output Total 200 350 Balance 286 -110 - Objective General Appearance: positive: No acute distress, Alert. negative: Lethargic Eyes Bilateral: positive: Normal inspection, PERRL, No lid inflammation ENT: positive: ENT inspection nml, Pharynx nml, No signs of dehydration. negative: Purulent nasal drainage Neck: positive: Nml inspection, Thyroid nml, No JVD, Trachea midline. negative: Thyromegaly, Lymphadenopathy (R), Lymphadenopathy (L), Stiff neck, Tracheal deviation Respiratory: positive: Chest non-tender, No respiratory distress. negative: Wheezes, Rales, Rhonchi Cardiovascular: positive: Regular rate & rhythm, No murmur, No gallop. negative: Extrasystoles, Tachycardia, Bradycardia, JVD present, Systolic murmur, Diastolic murmur Peripheral Pulses: 2+ Radial (R), 2+ Radial (L), 2+ Dorsalis pedis (R), 2+ Do rsalis pedis (L) Abdomen: positive: Non-tender, No organomegaly, Nml bowel sounds, No distention. negative: Tenderness, Guarding, Rebound Back: positive: Nml inspection. negative: CVA tenderness (R), CVA tenderness (L) Skin: positive: Color nml, No rash, Warm, Dry. negative: Cyanosis, Diaphoresis, Pallor Extremities: positive: Non-tender, Nml appearance, Pedal edema. negative: Calf tenderness, Shilpa's sign/cords Neurologic/Psychiatric: positive: Oriented x3, Sensation nml, Mood/affect nml. negative: Weakness, Sensory loss, Facial droop, Slurred/abnml speech, Depressed mood/affect - Lab Results Fish Bones: 07/01/19 11:02 07/01/19 04:40 Other Labs: Lab Results x24hrs 07/01/19 07/01/19 07/01/19 Range/Units 11:02 04:40 04:40 WBC 6.4 (4.8-10.8) x10^3/uL RBC 3.90 L (4.20-5.40) 10^6/uL Hgb 11.4 L (12.0-16.0) g/dL Hct 37.0 (37.0-47.0) % MCV 94.9 (81.0-99.0) fL MCH 29.2 (27.0-31.0) pg MCHC 30.8 L (32.0-36.0) g/dL RDW 17.4 H (12.0-15.0) % Plt Count 164 (130-450) 10^3/uL MPV 9.5 (7.9-10.8) fL Neut # (Auto) 4.4 (1.5-6.6) 10^3/uL Lymph # (Auto) 0.3 L (1.5-3.5) 10^3/uL [place] # (Auto) 0.5 (0.0-1.0) 10^3/uL Eos # (Auto) 1.2 H (0.0-0.7) 10^3/uL Baso # (Auto) 0.0 (0.0-0.1) 10^3/uL Absolute Nucleated RBC 0.00 x10^3/uL Nucleated RBC % 0.0 /100WBC Manual Slide Review Indicated RBC Morph Micro Appear 3+ ANISOCYTOSIS (NORMAL) Sodium (135-145) mmol/L Potassium (3.5-5.0) mmol/L Chloride (101-111) mmol/L Carbon Dioxide (21-32) mmol/L Anion Gap (6-13) BUN (6-20) mg/dL Creatinine (0.4-1.0) mg/dL Estimated GFR (MDRD) (>89) Glucose (70-100) mg/dL Glycated Hemoglobin (4.6-6.2) % Estim Average Glucose (70-100) Lactic Acid (0.5-2.2) mmol/L Calcium (8.5-10.3) mg/dL Magnesium (1.7-2.8) mg/dL Total Bilirubin (0.2-1.0) mg/dL AST (10-42) IU/L ALT (10-60) IU/L Alkaline Phosphatase (42-121) IU/L Troponin I High Sens (2.3-14.8) ng/L B-Natriuretic Peptide (5-100) pg/mL Total Protein (6.7-8.2) g/dL Albumin (3.2-5.5) g/dL Globulin (2.1-4.2) g/dL Albumin/Globulin Ratio (1.0-2.2) Triglycerides 77 ( - 149) mg/dL Cholesterol 73 ( - 199) mg/dL LDL Cholesterol, Calc 37 ( - 129) mg/dL VLDL Cholesterol 15 mg/dL HDL Cholesterol 21 L (60 - ) mg/dL LDL/HDL Ratio 1.8 (<4.4) Cholesterol/HDL Ratio 3.5 (<4.4) Lipase (22-51) U/L TSH 3.94 (0.34-5.60) uIU/mL Coronavirus (PCR) 07/01/19 07/01/19 07/01/19 Range/Units 04:40 04:40 04:40 WBC (4.8-10.8) x10^3/uL RBC (4.20-5.40) 10^6/uL Hgb (12.0-16.0) g/dL Hct (37.0-47.0) % MCV (81.0-99.0) fL MCH (27.0-31.0) pg MCHC (32.0-36.0) g/dL RDW (12.0-15.0) % Plt Count (130-450) 10^3/uL MPV (7.9-10.8) fL Neut # (Auto) (1.5-6.6) 10^3/uL Lymph # (Auto) (1.5-3.5) 10^3/uL [place] # (Auto) (0.0-1.0) 10^3/uL Eos # (Auto) (0.0-0.7) 10^3/uL Baso # (Auto) (0.0-0.1) 10^3/uL Absolute Nucleated RBC x10^3/uL Nucleated RBC % /100WBC Manual Slide Review RBC Morph Micro Appear (NORMAL) Sodium 140 (135-145) mmol/L Potassium 3.6 (3.5-5.0) mmol/L Chloride 103 (101-111) mmol/L Carbon Dioxide 29 (21-32) mmol/L Anion Gap 8.0 (6-13) BUN 23 H (6-20) mg/dL Creatinine 1.3 H (0.4-1.0) mg/dL Estimated GFR (MDRD) 39 L (>89) Glucose 113 H (70-100) mg/dL Glycated Hemoglobin (4.6-6.2) % Estim Average Glucose (70-100) Lactic Acid (0.5-2.2) mmol/L Calcium 8.5 (8.5-10.3) mg/dL Magnesium 1.6 L (1.7-2.8) mg/dL Total Bilirubin (0.2-1.0) mg/dL AST (10-42) IU/L ALT (10-60) IU/L Alkaline Phosphatase (42-121) IU/L Troponin I High Sens 7.8 (2.3-14.8) ng/L B-Natriuretic Peptide 1469 H (5-100) pg/mL Total Protein (6.7-8.2) g/dL Albumin (3.2-5.5) g/dL Globulin (2.1-4.2) g/dL Albumin/Globulin Ratio (1.0-2.2) Triglycerides ( - 149) mg/dL Cholesterol ( - 199) mg/dL LDL Cholesterol, Calc ( - 129) mg/dL VLDL Cholesterol mg/dL HDL Cholesterol (60 - ) mg/dL LDL/HDL Ratio (<4.4) Cholesterol/HDL Ratio (<4.4) Lipase (22-51) U/L TSH (0.34-5.60) uIU/mL Coronavirus (PCR) 07/01/19 06/30/19 06/30/19 Range/Units 04:40 13:35 13:31 WBC (4.8-10.8) x10^3/uL RBC (4.20-5.40) 10^6/uL Hgb (12.0-16.0) g/dL Hct (37.0-47.0) % MCV (81.0-99.0) fL MCH (27.0-31.0) pg MCHC (32.0-36.0) g/dL RDW (12.0-15.0) % Plt Count (130-450) 10^3/uL MPV (7.9-10.8) fL Neut # (Auto) (1.5-6.6) 10^3/uL Lymph # (Auto) (1.5-3.5) 10^3/uL [place] # (Auto) (0.0-1.0) 10^3/uL Eos # (Auto) (0.0-0.7) 10^3/uL Baso # (Auto) (0.0-0.1) 10^3/uL Absolute Nucleated RBC x10^3/uL Nucleated RBC % /100WBC Manual Slide Review RBC Morph Micro Appear (NORMAL) Sodium (135-145) mmol/L Potassium (3.5-5.0) mmol/L Chloride (101-111) mmol/L Carbon Dioxide (21-32) mmol/L Anion Gap (6-13) BUN (6-20) mg/dL Creatinine (0.4-1.0) mg/dL Estimated GFR (MDRD) (>89) Glucose (70-100) mg/dL Glycated Hemoglobin 6.6 H (4.6-6.2) % Estim Average Glucose 143 H (70-100) Lactic Acid 1.3 (0.5-2.2) mmol/L Calcium (8.5-10.3) mg/dL Magnesium (1.7-2.8) mg/dL Total Bilirubin (0.2-1.0) mg/dL AST (10-42) IU/L ALT (10-60) IU/L Alkaline Phosphatase (42-121) IU/L Troponin I High Sens (2.3-14.8) ng/L B-Natriuretic Peptide (5-100) pg/mL Total Protein (6.7-8.2) g/dL Albumin (3.2-5.5) g/dL Globulin (2.1-4.2) g/dL Albumin/Globulin Ratio (1.0-2.2) Triglycerides ( - 149) mg/dL Cholesterol ( - 199) mg/dL LDL Cholesterol, Calc ( - 129) mg/dL VLDL Cholesterol mg/dL HDL Cholesterol (60 - ) mg/dL LDL/HDL Ratio (<4.4) Cholesterol/HDL Ratio (<4.4) Lipase (22-51) U/L TSH (0.34-5.60) uIU/mL Coronavirus (PCR) NEGATIVE 06/30/19 06/30/19 06/30/19 Range/Units 12:26 12:26 12:26 WBC (4.8-10.8) x10^3/uL RBC (4.20-5.40) 10^6/uL Hgb (12.0-16.0) g/dL Hct (37.0-47.0) % MCV (81.0-99.0) fL MCH (27.0-31.0) pg MCHC (32.0-36.0) g/dL RDW (12.0-15.0) % Plt Count (130-450) 10^3/uL MPV (7.9-10.8) fL Neut # (Auto) (1.5-6.6) 10^3/uL Lymph # (Auto) (1.5-3.5) 10^3/uL [place] # (Auto) (0.0-1.0) 10^3/uL Eos # (Auto) (0.0-0.7) 10^3/uL Baso # (Auto) (0.0-0.1) 10^3/uL Absolute Nucleated RBC x10^3/uL Nucleated RBC % /100WBC Manual Slide Review RBC Morph Micro Appear (NORMAL) Sodium 140 (135-145) mmol/L Potassium 4.0 (3.5-5.0) mmol/L Chloride 104 (101-111) mmol/L Carbon Dioxide 28 (21-32) mmol/L Anion Gap 8.0 (6-13) BUN 22 H (6-20) mg/dL Creatinine 1.1 H (0.4-1.0) mg/dL Estimated GFR (MDRD) 48 L (>89) Glucose 158 H (70-100) mg/dL Glycated Hemoglobin (4.6-6.2) % Estim Average Glucose (70-100) Lactic Acid (0.5-2.2) mmol/L Calcium 8.9 (8.5-10.3) mg/dL Magnesium (1.7-2.8) mg/dL Total Bilirubin 1.2 H (0.2-1.0) mg/dL AST 24 (10-42) IU/L ALT 26 (10-60) IU/L Alkaline Phosphatase 89 (42-121) IU/L Troponin I High Sens 7.4 (2.3-14.8) ng/L B-Natriuretic Peptide 1204 H (5-100) pg/mL Total Protein 7.2 (6.7-8.2) g/dL Albumin 3.6 (3.2-5.5) g/dL Globulin 3.6 (2.1-4.2) g/dL Albumin/Globulin Ratio 1.0 (1.0-2.2) Triglycerides ( - 149) mg/dL Cholesterol ( - 199) mg/dL LDL Cholesterol, Calc ( - 129) mg/dL VLDL Cholesterol mg/dL HDL Cholesterol (60 - ) mg/dL LDL/HDL Ratio (<4.4) Cholesterol/HDL Ratio (<4.4) Lipase 24 (22-51) U/L TSH (0.34-5.60) uIU/mL Coronavirus (PCR) 06/30/19 Range/Units 12:26 WBC 8.4 (4.8-10.8) x10^3/uL RBC 4.07 L (4.20-5.40) 10^6/uL Hgb 12.0 (12.0-16.0) g/dL Hct 38.8 (37.0-47.0) % MCV 95.3 (81.0-99.0) fL MCH 29.5 (27.0-31.0) pg MCHC 30.9 L (32.0-36.0) g/dL RDW 17.3 H (12.0-15.0) % Plt Count 184 (130-450) 10^3/uL MPV 10.1 (7.9-10.8) fL Neut # (Auto) 7.1 H (1.5-6.6) 10^3/uL Lymph # (Auto) 0.3 L (1.5-3.5) 10^3/uL [place] # (Auto) 0.7 (0.0-1.0) 10^3/uL Eos # (Auto) 0.2 (0.0-0.7) 10^3/uL Baso # (Auto) 0.0 (0.0-0.1) 10^3/uL Absolute Nucleated RBC 0.00 x10^3/uL Nucleated RBC % 0.0 /100WBC Manual Slide Review RBC Morph Micro Appear (NORMAL) Sodium (135-145) mmol/L Potassium (3.5-5.0) mmol/L Chloride (101-111) mmol/L Carbon Dioxide (21-32) mmol/L Anion Gap (6-13) BUN (6-20) mg/dL Creatinine (0.4-1.0) mg/dL Estimated GFR (MDRD) (>89) Glucose (70-100) mg/dL Glycated Hemoglobin (4.6-6.2) % Estim Average Glucose (70-100) Lactic Acid (0.5-2.2) mmol/L Calcium (8.5-10.3) mg/dL Magnesium (1.7-2.8) mg/dL Total Bilirubin (0.2-1.0) mg/dL AST (10-42) IU/L ALT (10-60) IU/L Alkaline Phosphatase (42-121) IU/L Troponin I High Sens (2.3-14.8) ng/L B-Natriuretic Peptide (5-100) pg/mL Total Protein (6.7-8.2) g/dL Albumin (3.2-5.5) g/dL Globulin (2.1-4.2) g/dL Albumin/Globulin Ratio (1.0-2.2) Triglycerides ( - 149) mg/dL Cholesterol ( - 199) mg/dL LDL Cholesterol, Calc ( - 129) mg/dL VLDL Cholesterol mg/dL HDL Cholesterol (60 - ) mg/dL LDL/HDL Ratio (<4.4) Cholesterol/HDL Ratio (<4.4) Lipase (22-51) U/L TSH (0.34-5.60) uIU/mL Coronavirus (PCR) ABX Reporting Has patient been on IV antibiotics over the past 48 hours?: No Sepsis Event Note (H) - Evaluation Current Stage of Sepsis: Ruled out Assessment/Plan - Problem List (1) Acute on chronic congestive heart failure Impression: 06/30 clinic pt is slight better but still drop the sats when she is exertion. her BNP is slight up. continue diuretics. daily weight. because pt's creatinine increased, fluid restriction is holding now. continue lab monitor pt has elevated BNP, enlarging on small pleural effusion, orthopnea, bilateral lower extremities edema, all indicate acute on chronic CHF. pt had EF 50-55% on 09/2018 ECHO. plan: order new ECHO diuretics with IV of Lasix lab and tele monitor (2) Atrial fibrillation with rapid ventricular response Conclusion/Plan: resolved pt has hx of afib, now her HR is 110-120. pt took Coreg at home. plan: resume home Coreg IV of Metoprolol PRN tele and vital monitor (3) Bilateral lower extremity edema Conclusion/Plan: 06/30 improved. continue diuretics, continue PT/OT pt report she had leg edema for couple of weeks. leg feel cold. she denies calf pain or erythema. pt took Eliquis at home. it is likely caused by acute on chronic CHF plan: diuretics with IV of Lasix, lab and vital monitor (4) Bilateral pleural effusion Conclusion/Plan: 4/3 slight better clinically, continue diuretics, supplement of O2 as needed CXR reveals enlarging small bilateral pleural effusion, likely caused by worsening heart failure. pt has normal WBC, no fever or chill or cough. plan: diuretics, supplement of O2 as needed. vital monitor (5) Diabetes Conclusion/Plan: 06/30 A1C is 6.6, continue SSI pt did not take insulin at home. pt state she just had "small diabetes". start SSI, ACHS, hypoglycemia protocol (6) HTN (hypertension) Conclusion/Plan: 4/3 stable/resolved. continue home meds elevated BP, resume home meds Cozaar and Coreg, vital monitor (7) GERD (gastroesophageal reflux disease) Conclusion/Plan: pt has hx of GERD, start Protonix PO (8) HLD (hyperlipidemia) Conclusion/Plan: check lipid panel and resume home statin (9) Weakness Conclusion/Plan: 4/ pt still present weakness, continue PT/OT evaluation and treatment. pt present generalized weakness, consult with PT/OT
[2019-07-02] MEDS: SODIUM CHLORIDE FLUSH 0.9% 10 ML SYRINGE IVP SCH (00:07)
[2019-07-02] MEDS: FUROSEMIDE 40 MG/4 ML VIAL IVP SCH (06:08)
[2019-07-02] MEDS: PANTOPRAZOLE 40 MG TABLET PO SCH (06:13)
[2019-07-02] MEDS: LEVOTHYROXINE 75 MCG TABLET PO SCH (06:13)
[2019-07-02] MEDS: LEVOTHYROXINE 100 MCG TABLET PO SCH (06:13)
[2019-07-02 06:28] LABS: BASOPHILS % (AUTO) 0.4 %; EOSINOPHILS # (AUTO) 1.1 10^3/uL (0.0-0.7); EOSINOPHILS % (AUTO) 20.2 %; HGB - HEMOGLOBIN 10.6 g/dL (12.0-16.0); LYMPHOCYTES # (AUTO) 0.7 10^3/uL (1.5-3.5); LYMPHOCYTES % (AUTO) 13.5 %; MEAN CORPUSCULAR HEMOGLOBIN 28.2 pg (27.0-31.0); MEAN CORPUSCULAR HGB CONC 30.4 g/dL (32.0-36.0); MEAN CORPUSCULAR VOLUME 92.8 fL (81.0-99.0); MEAN PLATELET VOLUME 10.5 fL (7.9-10.8); MONOCYTES # (AUTO) 0.5 10^3/uL (0.0-1.0); MONOCYTES % (AUTO) 8.9 %; NEUTROPHILS # (AUTO) 3.1 10^3/uL (1.5-6.6); NEUTROPHILS % (AUTO) 56.8 %; PLT - PLATELET COUNT 158 10^3/uL (130-450); RED BLOOD COUNT 3.76 10^6/uL (4.20-5.40); RED CELL DISTRIBUTION WIDTH 17.2 % (12.0-15.0); WHITE BLOOD COUNT 5.4 x10^3/uL (4.8-10.8)
[2019-07-02 06:35] LABS: CALCIUM 8.3 mg/dL (8.5-10.3); CREATININE 1.4 mg/dL (0.4-1.0)
[2019-07-02] MEDS ORDERED: POTASSIUM CHLORIDE 20 MEQ TABLET PO ONE (07:41)
[2019-07-02] MEDS ORDERED: polyethylene glycoL 3350 17 GM PACKET PO SCH (09:00)
[2019-07-02] MEDS: APIXABAN 5 MG TABLET PO SCH (10:30)
[2019-07-02] MEDS: carvediloL 12.5 MG TABLET PO SCH (10:31)
[2019-07-02] MEDS: OXYBUTYNIN 5MG TABLET PO SCH (10:33)
[2019-07-02] MEDS: TERAZOSIN 5 MG CAPSULE PO SCH (10:33)
[2019-07-02] MEDS: MULTIVITAMIN TABLET PO SCH (10:33)
[2019-07-02] MEDS: INSULIN ASPART 300 UNIT/3 ML PEN SUBQ SCH ×2 (10:34→12:19)
[2019-07-02 11:14] VITALS: BP 128/75
--- NOTE | 2019-07-02 12:14 | Discharge Plan ---
Discharge Plan Problem Reviewed?: Yes Disposition: Home Health Service Condition: Stable Prescriptions: Furosemide [Lasix] 40 mg PO DAILY #10 tablet Diet: Regular Activity Restrictions: Activity as Tolerated Shower Restrictions: No (fall precaution, caregiver closely monitor) Instruction Topics: Furosemide tablets, Heart Failure, Heart Failure Coping Health Concerns: Fluid overload Plan of Treatment: you are found fluid overloaded. after you have diuretics, your symptoms has great improvement. You are prescribed Lasix now. Advise you have ECHO as out-pt, followup your PCP in one week, and have BMP and followup your money market clerk as out-pt. Care Goals: stabilization and improvement of your medical conditions Assessment: discussed with you about your care plan, you understood Additional Instructions or Follow Up instructions: you may followup your PCP in one week, and have BMP to check potassium level, and followup your money market clerk as out-pt. Should your symptoms return or worsen, you may present ER or call 911 for help. Follow-Up Care: [facility] - CHF Classes, Home Health - PT, Home Health - OT No Smoking: If you smoke, Please STOP! Call for help. Follow-up with: Elijah Gee MD [Primary Care Provider] -
--- NOTE | 2019-07-02 12:37 | DISCHARGE SUMMARY ---
Discharge Summary Admit Date: 06/30/19 Discharge Date: 07/02/19 Discharging Provider: Alvaro Garnett Primary Care Provider: Dr. Gee Condition at Discharge: Stable Discharge Disposition: Home Health Service Discharge Facility Name: home - DIAGNOSES Admission Diagnoses: (1) Acute on chronic congestive heart failure (2) Atrial fibrillation with rapid ventricular response (3) Bilateral lower extremity edema (4) Bilateral pleural effusion (5) Diabetes (6) HTN (hypertension) (7) GERD (gastroesophageal reflux disease) (8) HLD (hyperlipidemia) (9) Weakness Discharge Diagnoses with Status of Each Condition: 1) Acute on chronic congestive heart failure stable/improved greatly. pt report she feel much better for breath without shortness of breath. pt has 98% sats on room air. her BNP is down to 600 from 1200. pt is prescribed lasix and followup PCP to check BMP in one week. pt's Covid test is negative. pt present shortness of breath and hypoxia in admission (2) Atrial fibrillation with rapid ventricular response resolved. pt's HR is 86 (3) Bilateral lower extremity edema great improved. (4) Bilateral pleural effusion improved. pt has 98% sats on room air. (5) Diabetes stable/chronic (6) HTN (hypertension) stable/chronic (7) GERD (gastroesophageal reflux disease) stable/chronic (8) HLD (hyperlipidemia) stable/chronic (9) Weakness great improved. pt is arranged for home health PT/OT - HPI History of Present Illness: Mrs. 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 She report she had atrial for ablation for her afib and she takes Eliquis for this. She states she visit her PCP on last week, and She was given a water pill but no much help with this, instead of her symptoms have worsened. Patient denies fever, chill, sore throat, chest pain, palpitation, recent runny nose, sinus congestion, abdominal pain, nausea, vomiting, or diarrhea. Patient lives at home. Covid 19 test was ordered by ER. In Route lab test, pt has normal Troponin test, but with significant elevated BNP 1204, normal WBC. 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 pt is afebrile, with tachycardia at 117, BP at 165/116, 100% sat on 2 liter of O2 with RR 24. Discussed with pt about pt's care goal. pt request a FULL CODE. - HOSPITAL COURSE Hospital Course: pt was admitted for shortness of breath, hypoxia. pt was found to have fluid ove rloaded. pt was treated with diuretic. pt had PT/OT evaluation and treatment. after treatment, pt has great improvement. pt has 98% sats on room air. pt was prescribed Lasix. pt had PT/OT evaluation and treatment. home health PT/OT was arranged for pt. The detail hospital course is as the below. 1) Acute on chronic congestive heart failure stable/improved greatly. pt report she feel much better for breath without shortness of breath. pt has 98% sats on room air. her BNP is down to 600 from 1200. pt is prescribed lasix and followup PCP to check BMP in one week. pt's Covid test is negative. pt present shortness of breath and hypoxia in admission. pt had ECHO ordered but did not do. advise pt have ECHO as out-pt (2) Atrial fibrillation with rapid ventricular response resolved. pt's HR is 86 (3) Bilateral lower extremity edema great improved. (4) Bilateral pleural effusion improved. pt has 98% sats on room air. (5) Diabetes stable/chronic (6) HTN (hypertension) stable/chronic (7) GERD (gastroesophageal reflux disease) stable/chronic (8) HLD (hyperlipidemia) stable/chronic (9) Weakness great improved. pt is arranged for home health PT/OT - ALLERGIES Allergies/Adverse Reactions: Allergies Allergy/AdvReac Type Severity Reaction Status Date / Time codeine [Codeine] Allergy Unknown Rash Verified 08/18/18 16:08 shellfish derived AdvReac Unknown Unknown Verified 08/18/18 16:08 - MEDICATIONS Home Medications: Ambulatory Orders Medication Instructions Recorded Confirmed Terazosin [Hytrin] 5 mg PO BID 08/11/12 06/30/19 Levothyroxine [Synthroid] 0.175 mg PO QDAC 10/06/12 06/30/19 Losartan [Cozaar] 100 mg PO DAILY PM 10/06/12 06/30/19 Multivitamin [Multivitamins] 1 each PO DAILY 10/06/12 06/30/19 Potassium Chloride [Micro-K] 20 meq PO BIDWM 10/06/12 06/30/19 carvediloL [Coreg] 25 mg PO BID 10/06/12 06/30/19 Glimepiride 2 mg PO BID 01/17/15 06/30/19 Oxybutynin Chloride [Ditropan Xl] 15 mg PO DAILY PM 10/23/17 06/30/19 Apixaban [Eliquis] 5 mg BID 02/22/19 06/30/19 Atorvastatin [Lipitor] 20 mg PO DAILY PM 02/22/19 06/30/19 metFORMIN [Glucophage] 250 mg PO BID 02/22/19 06/30/19 Furosemide [Lasix] 40 mg PO DAILY #10 tablet 07/02/19 - PHYSICAL EXAM AT DISCHARGE General Appearance: positive: No acute distress, Alert. negative: Lethargic Eyes Bilateral: positive: Normal inspection, PERRL, No lid inflammation ENT: positive: ENT inspection nml, Pharynx nml, No signs of dehydration. negative: Purulent nasal drainage Neck: positive: Nml inspection, Thyroid nml, No JVD, Trachea midline. negative: Thyromegaly, Lymphadenopathy (R), Lymphadenopathy (L), Stiff neck, Tracheal deviation Respiratory: positive: Chest non-tender, No respiratory distress, Breath sounds nml. negative: Wheezes, Rales, Rhonchi Cardiovascular: positive: Regular rate & rhythm, No murmur, No gallop. negative: Irregularly irregular, Extrasystoles, Tachycardia, Bradycardia, JVD present, Systolic murmur, Diastolic murmur Peripheral Pulses: positive: 2+ Abdomen: positive: Non-tender, No organomegaly, Nml bowel sounds, No distention. negative: Tenderness, Guarding, Rebound Back: positive: Nml inspection. negative: CVA tenderness (R), CVA tenderness (L) Skin: positive: Color nml, No rash, Warm, Dry. negative: Cyanosis, Diaphoresis, Pallor Extremities: positive: Non-tender, Nml appearance. negative: Calf tenderness, Shilpa's sign/cords Neurologic/Psychiatric: positive: Oriented x3, Sensation nml, Mood/affect nml. negative: Weakness, Sensory loss, Facial droop, Slurred/abnml speech, Depressed mood/affect - LABS Result Diagrams: 07/02/19 05:35 07/02/19 05:35 - SEPSIS Current Stage of Sepsis: Ruled out - FOLLOW UP Follow Up: you are found fluid overloaded. after you have diuretics, your symptoms has great improvement. You are prescribed Lasix now. Advise you have ECHO as out-pt, followup your PCP in one week, and have BMP and followup your consumer educator as out-pt. you may followup your PCP in one week, and have BMP to check potassium level, and followup your consumer educator as out-pt. Should your symptoms return or worsen, you may present ER or call 911 for help. - TIME SPENT Time Spent in Discharge (Minutes): 30
[2019-07-02] MEDS ORDERED: MAGNESIUM OXIDE 400 MG TABLET PO SCH (13:00)
[2019-07-02] MEDS ORDERED: FUROSEMIDE 40 MG/4 ML VIAL IVP SCH (14:00)
== END 2019-07-02 14:19 | disposition home health service (06) | DRG 292 ==
LOC: ED 12:18 → MS2 15:08 → OBSVTOIN 07-01 09:53
PROVIDERS: ADMIT Specialist; ATTEND Nurse Practitioner Gerontology
DX: I11.0 Hypertensive heart disease with heart failure (principal); I48.20 Chronic atrial fibrillation, unspecified; I50.23 Acute on chronic systolic (congestive) heart failure; E11.51 Type 2 diabetes mellitus with diabetic peripheral angiopathy without gangrene; K21.9 Gastro-esophageal reflux disease without esophagitis; E78.5 Hyperlipidemia, unspecified; I25.10 Atherosclerotic heart disease of native coronary artery without angina pectoris; M19.90 Unspecified osteoarthritis, unspecified site; K59.09 Other constipation; R32 Unspecified urinary incontinence; Z20.828 Contact with and (suspected) exposure to other viral communicable diseases; Z66 Do not resuscitate; Z96.642 Presence of left artificial hip joint; Z79.01 Long term (current) use of anticoagulants; Z79.84 Long term (current) use of oral hypoglycemic drugs; Z79.899 Other long term (current) drug therapy; Z87.891 Personal history of nicotine dependence; Z85.3 Personal history of malignant neoplasm of breast; Z85.038 Personal history of other malignant neoplasm of large intestine; Z92.3 Personal history of irradiation; Z90.10 Acquired absence of unspecified breast and nipple
CPT/HCPCS: 36415; 71045; 80048; 80053; 80061; 83036; 83605; 83690; 83735; 83880; 84443; 84484; 85025; 87040; 93005; 96374; 96376; 97162; 97166; 97530; 99284; 99285; A9270; G0378; U0002; 81599; 83721

== ENCOUNTER 2019-11-07 10:06 | Outpatient (CLI) | payer MEDICARE, OTHER ==
[2019-11-07 11:55] LABS: HGB - HEMOGLOBIN 12.2 g/dL (12.0-16.0); MEAN CORPUSCULAR HEMOGLOBIN 28.5 pg (27.0-31.0); MEAN CORPUSCULAR HGB CONC 31.1 g/dL (32.0-36.0); MEAN CORPUSCULAR VOLUME 91.6 fL (81.0-99.0); MEAN PLATELET VOLUME 10.8 fL (7.9-10.8); RED BLOOD COUNT 4.28 10^6/uL (4.20-5.40); RED CELL DISTRIBUTION WIDTH 17.1 % (12.0-15.0); WHITE BLOOD COUNT 5.7 x10^3/uL (4.8-10.8)
[2019-11-07 12:43] LABS: CALCIUM 9.7 mg/dL (8.5-10.3); CREATININE 0.8 mg/dL (0.4-1.0)
[2019-11-07 13:03] LABS: THYROID STIMULATING HORMONE 2.53 uIU/mL (0.34-5.60)
[2019-11-07 13:04] LABS: FREE T3 3.37 pg/mL (2.5-3.9)
[2019-11-07 13:05] LABS: FREE T4 (FREE THYROXINE) 1.08 ng/dL (0.58-1.64)
== END 2019-11-07 23:59 | disposition home or self-care (01) ==
LOC: LAB.WCP 10:06
PROVIDERS: ATTEND Family Medicine
DX: E87.70 Fluid overload, unspecified (principal); I50.22 Chronic systolic (congestive) heart failure; Q21.1 Atrial septal defect; Z79.01 Long term (current) use of anticoagulants; E11.9 Type 2 diabetes mellitus without complications; E03.9 Hypothyroidism, unspecified; I48.91 Unspecified atrial fibrillation
CPT/HCPCS: 36415; 80048; 83880; 84439; 84443; 84481; 85027

== ENCOUNTER 2019-11-24 06:32 | Day surgery (SDC) | payer MEDICARE, OTHER ==
[2019-11-24] MEDS ORDERED: LACTATED RINGERS 1,000 ML IV ONE ×2 (06:43→09:14)
[2019-11-24] MEDS ORDERED: MIDAZOLAM 2 MG/2 ML VIAL IVP ONE (08:35)
[2019-11-24] MEDS ORDERED: fentaNYL 250 MCG/5 ML VIAL IVP ONE (08:35)
[2019-11-24 09:54] VITALS: BP 105/58
== END 2019-11-24 06:33 | disposition home or self-care (01) ==
LOC: SDS 06:32
PROVIDERS: ATTEND Surgery
PROC: 0DBE8ZX Excision of Large Intestine, Via Natural or Artificial Opening Endoscopic, Diagnostic (ICD-10-PCS; principal; 2019-11-24 08:00)
DX: Z08 Encounter for follow-up examination after completed treatment for malignant neoplasm (principal); Z85.038 Personal history of other malignant neoplasm of large intestine; K64.8 Other hemorrhoids; Z90.49 Acquired absence of other specified parts of digestive tract; K63.3 Ulcer of intestine; Z98.0 Intestinal bypass and anastomosis status; I48.91 Unspecified atrial fibrillation; I11.0 Hypertensive heart disease with heart failure; I50.9 Heart failure, unspecified; E11.9 Type 2 diabetes mellitus without complications
CPT/HCPCS: 45380; J3010; J7120

== ENCOUNTER 2020-01-23 09:40 | Outpatient (CLI) | payer MEDICARE, OTHER | END 2020-01-23 09:41 | disposition home or self-care (01) | LOC: COV 09:40 | PROVIDERS: ATTEND Family Medicine | DX: R05 Cough (principal); R06.02 Shortness of breath; R09.81 Nasal congestion; Z20.828 Contact with and (suspected) exposure to other viral communicable diseases ==

== ENCOUNTER 2020-06-19 12:19 | Outpatient (CLI) | payer MEDICARE, OTHER | END 2020-06-19 12:20 | disposition critical access hospital (66) | LOC: EMS 12:19 | PROVIDERS: ATTEND Registered Nurse | DX: R40.4 Transient alteration of awareness (principal) | CPT/HCPCS: A0425; A0427 ==

== ENCOUNTER 2020-06-19 12:35 | Observation (INO) | payer MEDICARE, OTHER ==
--- NOTE | 2020-06-19 12:54 | ED Physician Documentation ---
History of Present Illness - Stated complaint Stated Complaint: FALL - Additonal information Additional information: 80-year-old female presents emergency department for evaluation of multiple falls over the last 24 hours. She reports that she is fallen at least 3 times with her walker. She does have a history of atrial fibrillation and is anticoagulated on Eliquis. She also does have a history of dementia though she is cognizant to the events of this morning. At present she is reporting head and neck pain. No obvious focal neuro deficits. Denies pain in the chest or abdomen. Left hip pain with elevation of the left hip, without shortening or rotation pt presents as a modified trauma. Review of Systems Unable to obtain: Dementia Constitutional: denies: Fever, Chills Eyes: reports: Reviewed and negative Ears: reports: Reviewed and negative Nose: reports: Reviewed and negative Throat: reports: Reviewed and negative Cardiac: reports: Pedal edema (baseline). denies: Chest pain / pressure, Palpitations Respiratory: denies: Dyspnea, Cough GI: denies: Abdominal Pain, Nausea, Vomiting : denies: Dysuria Skin: denies: Rash, Lesions Musculoskeletal: reports: Joint pain (left hip). denies: Neck pain Neurologic: reports: Confused (dementia baseline), Headache. 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: Hysterectomy, Other HEENT: Cataracts - Present Medications Home Medications: Ambulatory Orders Medication Instructions Recorded Confirmed Terazosin [Hytrin] 5 mg PO BID 08/11/12 11/24/19 Levothyroxine [Synthroid] 0.175 mg PO QDAC 10/06/12 11/24/19 Losartan [Cozaar] 100 mg PO DAILY PM 10/06/12 11/24/19 Multivitamin [Multivitamins] 1 each PO DAILY 10/06/12 11/24/19 Potassium Chloride [Micro-K] 20 meq PO BIDWM 10/06/12 11/24/19 carvediloL [Coreg] 25 mg PO BID 10/06/12 11/24/19 Oxybutynin Chloride [Ditropan Xl] 15 mg PO DAILY PM 10/23/17 11/24/19 Apixaban [Eliquis] 5 mg BID 02/22/19 11/24/19 Atorvastatin [Lipitor] 20 mg PO DAILY PM 02/22/19 11/24/19 metFORMIN [Glucophage] 250 mg PO BID 02/22/19 11/08/19 Furosemide [Lasix] 40 mg PO DAILY #10 tablet 07/02/19 11/24/19 Ferrous Gluconate [Iron] 240 mg PO DAILY 11/24/19 11/24/19 - Allergies Allergies/Adverse Reactions: Allergies Allergy/AdvReac Type Severity Reaction Status Date / Time codeine [Codeine] Allergy Unknown Rash Verified 06/19/20 12:49 GLORIA Inhibitors Allergy Unknown Verified 06/19/20 12:49 iodine Allergy Unknown Verified 06/19/20 12:49 tramadol Allergy Unknown Verified 06/19/20 12:49 shellfish derived AdvReac Unknown Unknown Verified 06/19/20 12:49 ccbs Allergy Unknown Uncoded 06/19/20 12:49 - Social History Does the pt smoke?: No Smoking Status: Former smoker Does the pt drink ETOH?: No Does the pt have substance abuse?: No - Immunizations Immunizations are current?: Yes - POLST Patient has POLST: No POLST Status: Full Code PD ED PE EXPANDED - General General: Alert, No acute distress, Other (ridgid c-collar in place) - Eyes Eyes: PERRL - Neck Neck: Other (rigid c-collar) - Cardiac Cardiac: Irregularly irregular, Murmur Present, Radial strong equal, Pedal strong equal, Cap refill < 2 sec - Respiratory Respiratory: Clear to ausultation casey. No: Distress, Labored - Abdomen Abdomen: Normal Bowel sounds. No: Tender to palpation - Derm Derm: Normal color, Warm and dry - Extremities Extremities: Normal, Tenderness, Left hip (tenderness with elevation left hip; tenderness palpation left lateral hip; no shortening, malrotation). No: Deformity - Neuro Neuro: Confused, CNII-XII intact, PERRL - GCS Eye Opening: Spontaneous Motor: Obeys Commands Verbal: Oriented Total: 15 Results - Vitals Vitals: Vital Signs - 24 hr 06/19/20 06/19/20 06/19/20 12:41 14:13 14:41 Temperature 36 C L Heart Rate 103 H 96 Heart Rate [ 108 H Sitting] Heart Rate [ 154 H Standing] Heart Rate [ 94 Supine] Respiratory 18 12 Rate Blood Pressure 157/90 H 156/75 H Blood Pressure 137/81 H [Sitting] Blood Pressure 144/90 H [Supine] O2 Saturation 97 100 Oxygen O2 Source [With Activity] Nasal cannula O2 Source [Without Activity] Room air O2 Source Room air - EKG (time done) 1258 Rate: Rate (enter#) (100) Rhythm: Atrial fibrillation, Other (PVC) [place]: Other Intervals: Wide QRS. No: Prolonged QT QRS: Normal Ischemia: Non specific changes Compare to prior EKG: Unchanged from prior EKG Computer interpretation: Agree with computer - Labs Labs: Laboratory Tests 06/19/20 06/19/20 06/19/20 12:45 12:45 12:45 WBC 10.3 RBC 4.84 Hgb 14.2 Hct 44.9 MCV 92.8 MCH 29.3 MCHC 31.6 L RDW 15.3 H Plt Count 216 MPV 10.4 Neut # (Auto) 8.1 H Lymph # (Auto) 1.3 L [place] # (Auto) 0.5 Eos # (Auto) 0.3 Baso # (Auto) 0.1 Absolute Nucleated RBC 0.00 Nucleated RBC % 0.0 Sodium 137 Potassium 3.8 Chloride 101 Carbon Dioxide 23 Anion Gap 13.0 BUN 34 H Creatinine 1.6 H Estimated GFR (MDRD) 31 L Glucose 230 H Calcium 10.0 Total Bilirubin 1.0 AST 24 ALT 20 Alkaline Phosphatase 99 B-Natriuretic Peptide 312 H Total Protein 8.0 Albumin 3.8 Globulin 4.2 Albumin/Globulin Ratio 0.9 L Lipase 27 TSH 06/19/20 13:00 WBC RBC Hgb Hct MCV MCH MCHC RDW Plt Count MPV Neut # (Auto) Lymph # (Auto) [place] # (Auto) Eos # (Auto) Baso # (Auto) Absolute Nucleated RBC Nucleated RBC % Sodium Potassium Chloride Carbon Dioxide Anion Gap BUN Creatinine Estimated GFR (MDRD) Glucose Calcium Total Bilirubin AST ALT Alkaline Phosphatase B-Natriuretic Peptide Total Protein Albumin Globulin Albumin/Globulin Ratio Lipase TSH 5.14 - Rads (name of study) Left hip/pelvis Radiology: Final report received (No visualized acute fracture or dislocation) CXR Radiology: Final report received (Small right pleural effusion with overlying atelectasis versus consolidation. Findings most likely represent cardiogenic pulmonary edema and pleural effusion. A finding seen on multiple previous exams) CT cervical Radiology: Final report received CT head Radiology: Final report received (No acute intracranial finding) PD MEDICAL DECISION MAKING - ED course Complexity details: reviewed results, re-evaluated patient, considered differential, d/w patient ED course: 80-year-old female who has a history of dementia presents to the emergency department for evaluation after multiple falls this week. Per EMS patient has had at least 3 falls this week the most recent one this morning. Pt presented as a modified trauma in rigid c-collar. She does have a history of atrial fibrillation and is anticoagulated on Eliquis. CT of the head and neck show no acute intracranial findings. Once CT imaging was complete I was able to adequately clear her cervical spine and 8 was able to remove the collar. She had no midline tenderness and was fully ranging her neck. Patient's initial screening labs show no anemia. Her BUN and creatinine are elevated somewhat from baseline suggesting possible early dehydration. Chest x- ray does suggest however that she may have some pulmonary edema though previous x-rays appear similar with the same concern. BNP mildly elevated at 314, but certainly much lower than baseline. 1 liter IVF ordered. We did attempt to stand Ms. Danielle at the bedside however it was poorly tolerated. Her heart rate increased into the 150s with simple sitting and standing suggesting that she has an orthostatic component to her recurrent falls. I discussed this case with admitting hospitalist Dr. Leung who agrees to bring the patient in on an observation status. She likely needs an echocardiogram and further evaluation of her orthostasis before she is able to be safely discharged home. Departure - Departure Disposition: ED Place in Observation Clinical Impression: Frequent falls, Orthostatic intolerance Atrial fibrillation Qualifiers: Atrial fibrillation type: longstanding persistent Qualified Code(s): I48.11 - Longstanding persistent atrial fibrillation
[2020-06-19 12:55] LABS: BASOPHILS # (AUTO) 0.1 10^3/uL (0.0-0.1); BASOPHILS % (AUTO) 0.5 %; EOSINOPHILS # (AUTO) 0.3 10^3/uL (0.0-0.7); EOSINOPHILS % (AUTO) 2.8 %; HCT - HEMATOCRIT 44.9 % (37.0-47.0); HGB - HEMOGLOBIN 14.2 g/dL (12.0-16.0); LYMPHOCYTES # (AUTO) 1.3 10^3/uL (1.5-3.5); LYMPHOCYTES % (AUTO) 12.8 %; MEAN CORPUSCULAR HEMOGLOBIN 29.3 pg (27.0-31.0); MEAN CORPUSCULAR HGB CONC 31.6 g/dL (32.0-36.0); MEAN CORPUSCULAR VOLUME 92.8 fL (81.0-99.0); MEAN PLATELET VOLUME 10.4 fL (7.9-10.8); MONOCYTES # (AUTO) 0.5 10^3/uL (0.0-1.0); MONOCYTES % (AUTO) 4.5 %; NEUTROPHILS # (AUTO) 8.1 10^3/uL (1.5-6.6); NEUTROPHILS % (AUTO) 78.9 %; PLT - PLATELET COUNT 216 10^3/uL (130-450); RED BLOOD COUNT 4.84 10^6/uL (4.20-5.40); RED CELL DISTRIBUTION WIDTH 15.3 % (12.0-15.0); WHITE BLOOD COUNT 10.3 x10^3/uL (4.8-10.8)
[2020-06-19 13:09] LABS: ALBUMIN 3.8 g/dL (3.2-5.5); ALBUMIN/GLOBULIN RATIO 0.9 (1.0-2.2); CREATININE 1.6 mg/dL (0.4-1.0); POTASSIUM 3.8 mmol/L (3.5-5.0)
--- NOTE | 2020-06-19 13:34 | XRAY Report ---
PROCEDURE: Chest 1 View X-Ray INDICATIONS: Chest pain TECHNIQUE: One view of the chest was acquired. COMPARISON: Multiple prior studies, most recent 09/09/2019 FINDINGS: Surgical changes and devices: None. Lungs and pleura: No pleural effusions or pneumothorax. Small right pleural effusion with overlying atelectasis versus consolidation. Mildly increased interstitial markings in both lungs, nonspecific Mediastinum: Mediastinal contours appear normal. Heart size is normal. Bones and chest wall: No suspicious bony lesions. Overlying soft tissues appear unremarkable. IMPRESSION: Small right pleural effusion with overlying atelectasis versus consolidation. Increased interstitial markings in both lungs. Findings most likely represent cardiogenic pulmonary edema and pleural effusi on, an appearance that has been seen on multiple prior chest exams. There is no plain radiographic evidence of displaced rib fracture or other chest wall fracture. Reviewed by: Dariel Rasheed MD on 06/19/2020 1:33 PM PDT Approved by: Dariel Rasheed MD on 06/19/2020 1:33 PM PDT Station ID: [id number]
--- NOTE | 2020-06-19 13:37 | CT Report ---
PROCEDURE: HEAD WO INDICATIONS: Trauma, fall, anticoagulated TECHNIQUE: Noncontrast 4.5 mm thick angled axial sections acquired from the foramen magnum to the vertex. For r adiation dose reduction, the following was used: automated exposure control, adjustment of mA and/or kV according to patient size. COMPARISON: None. FINDINGS: Image quality: Excellent. CSF spaces: Basal cisterns are patent. No extra-axial fluid collections. Ventricles are normal in size and shape. Brain: Encephalomalacia and gliosis in the anterior right frontal lobe related to remote ischemia, n ot significantly changed from 02/22/2019. No midline shift. No intracranial masses or hemorrhage. G ray-white matter interface is normal. Skull and face: Calvarium and visualized facial bones are intact, without suspicious lesions. High right frontal scalp hematoma. Sinuses: Visualized sinuses and mastoids are clear. IMPRESSION: No acute intracranial finding. Global cerebral volume loss and chronic microvascular ischemic changes, in addition to changes relate d to remote right frontal infarct. Reviewed by: Dariel Rasheed MD on 06/19/2020 1:35 PM PDT Approved by: Dariel Rasheed MD on 06/19/2020 1:35 PM PDT Station ID: [id number]
--- NOTE | 2020-06-19 13:37 | XRAY Report ---
PROCEDURE: Hip w/Pelvis 2-3V LT INDICATIONS: hip pain after fall TECHNIQUE: AP pelvis with lateral view(s) of the left hip(s). COMPARISON: None. FINDINGS: Bones: No fractures or dislocations. Pelvic ring appears intact. No suspicious bony lesions. Left hip arthroplasty is present. Hardware appears intact without evidence of periprosthetic loosening or fracture. Partially visualized lower lumbar fixation is present. Soft tissues: The visualized bowel gas pattern is normal. No suspicious soft tissue calcifications. IMPRESSION: No visualized acute fracture or dislocation. However, occult injury cannot be excluded. Recommend short interval imaging follow-up in 7-10 days as clinically indicated for additional evalua tion. Reviewed by: Elizabet Bradley MD on 06/19/2020 1:36 PM PDT Approved by: Elizabet Bradley MD on 06/19/2020 1:36 PM PDT Station ID: [id number]
--- NOTE | 2020-06-19 13:40 | CT Report ---
PROCEDURE: CERVICAL SPINE WO INDICATIONS: neck pain; fall TECHNIQUE: Noncontrast 3 mm thick sections acquired from the skull base to the T4 level. Sagittal and coronal r eformats were then constructed. For radiation dose reduction, the following was used: automated exp osure control, adjustment of mA and/or kV according to patient size. COMPARISON: 10/06/2018 CT cervical spine FINDINGS: Image quality: Excellent. Bones: No fractures or dislocations. Visualized superior ribs are intact. Soft tissues: Prevertebral soft tissues are normal in thickness. No paravertebral hematomas. No ap ical pneumothoraces. IMPRESSION: No CT evidence of acute traumatic cervical spine injury. Reviewed by: Dariel Rasheed MD on 06/19/2020 1:38 PM PDT Approved by: Dariel Rasheed MD on 06/19/2020 1:38 PM PDT Station ID: [id number]
[2020-06-19] MEDS ORDERED: SODIUM CHLORIDE 0.9% 1,000 ML IV STA (14:13)
[2020-06-19] MEDS ORDERED: SODIUM CHLORIDE FLUSH 0.9% 10 ML SYRINGE IVP PRN (15:09)
[2020-06-19] MEDS ORDERED: ACETAMINOPHEN 325 MG TABLET PO PRN (15:09)
[2020-06-19] MEDS ORDERED: ONDANSETRON 4 MG/2 ML VIAL IVP PRN (15:09)
[2020-06-19] MEDS ORDERED: SODIUM CHLORIDE 0.9% 1,000 ML IV SCH ×2 (16:00)
[2020-06-19] MEDS: SODIUM CHLORIDE FLUSH 0.9% 10 ML SYRINGE IVP SCH (16:34)
--- NOTE | 2020-06-19 16:39 | HISTORY & PHYSICAL EXAMINATION ---
Chief Complaint - Chief Complaint Chief Complaint: fall History of Present Illness - Admitted From Admitted From:: ER - History Obtained From Records Reviewed: [facility] History obtained from: pt Exam Limitations: no - History of Present Illness HPI Comment/Other: Ms. Danielle is a 79-year-old female with a PMH significant for diabetes, CHF, CAD, PVD, hypertension, HLD, breast cancer status post of left lumpectomy followup wi th radiation therapy, moderate differentiated ascending colon adenocarcinoma, osteroarthritis status post of left hip replacement, urinary incontinence, GERD, atrial fibrillation and is anticoagulated on Eliquis, who is here today with evaluation of multiple falls over the last 24 hours. pt report she feel so weak and she is very difficult to stand up. after she stand up then she had falls. She reports that she did not remember how many times she fall when she tried to walk to bathroom. she denies loss of Consciousness. She Initially report she had mild head and neck pain but now she felt better. she is enjoying to eat her dinner by her own now. she denies focal neurological deficits. CT of head, neck was unremarkable. x-ray of hip was unremarkable also. Chest x-ray show small right pleural effusion with atelectasis versus, consolidation, Increases interstitial marking in both lung suggestion cardiogenic pulmonary edema with pleural effusion. Patient denies fever, chill, chest pain, cough, wheezing and shortness of breath. Routine laboratory tests show creatinine is 1.6. Patient had orthostatic vital signs check in the ER show patient significant elevated HR with unsteady balance. Given pt's multiple falls, orthostatic unsteady balance, Medical team was consulted for patient in the observation unit for further evaluation. 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 Father- CAD Social History Notes: Has lived in [place] since 1959 when her was stationed her in the [employer]. She worked part-time at the [employer] and the [employer] while she raised 3 children. retired from the [employer] and then [employer]. Independent in ADLs, ambulates without assistance at home generally, but does have a walker leftover from her hip replacement that she uses occasionally on "uneven surfaces" because she sometimes "feels wobbly". Former smoker, 12 cigarettes/day x 28 years, quit in 1984. - Substance History Use: Uses substance without health or social issues: NONE - POLST Patient has POLST: No POLST Status: Full Code Meds/Allgy - Home Medications Home Medications: Ambulatory Orders Medication Instructions Recorded Confirmed Terazosin [Hytrin] 5 mg PO BID 08/11/12 11/24/19 Levothyroxine [Synthroid] 0.175 mg PO QDAC 10/06/12 11/24/19 Losartan [Cozaar] 100 mg PO DAILY PM 10/06/12 11/24/19 Multivitamin [Multivitamins] 1 each PO DAILY 10/06/12 11/24/19 Potassium Chloride [Micro-K] 20 meq PO BIDWM 10/06/12 11/24/19 carvediloL [Coreg] 25 mg PO BID 10/06/12 11/24/19 Oxybutynin Chloride [Ditropan Xl] 15 mg PO DAILY PM 10/23/17 11/24/19 Apixaban [Eliquis] 5 mg BID 02/22/19 11/24/19 Atorvastatin [Lipitor] 20 mg PO DAILY PM 02/22/19 11/24/19 metFORMIN [Glucophage] 250 mg PO BID 02/22/19 11/08/19 Furosemide [Lasix] 40 mg PO DAILY #10 tablet 07/02/19 11/24/19 Ferrous Gluconate [Iron] 240 mg PO DAILY 11/24/19 11/24/19 - Allergies Allergies/Adverse Reactions: Allergies Allergy/AdvReac Type Severity Reaction Status Date / Time codeine [Codeine] Allergy Unknown Rash Verified 06/19/20 12:49 GLORIA Inhibitors Allergy Unknown Verified 06/19/20 12:49 iodine Allergy Unknown Verified 06/19/20 12:49 tramadol Allergy Unknown Verified 06/19/20 12:49 shellfish derived AdvReac Unknown Unknown Verified 06/19/20 12:49 Calcium Channel Blocking AdvReac Edema Verified 06/19/20 15:45 Agents-[facility] Review of Systems - Constitutional Constitutional: reports: Weakness. denies: Fever, Chills, Poor appetite, Diaphoresis - Eyes Eyes: denies: Pain, Blurred vision, Field loss, Vision loss - Ears, Nose & Throat Ears, Nose & Throat: denies: Ear pain, Tinnitus, Nosebleeds, Bleeding gums - Cardiovascular Cariovascular: denies: Irregular heart rate, Palpitations, Chest pain, Edema, Lightheadedness, Syncope, Exertional dyspnea, Decr. exercise tolerance - Respiratory Respiratory: denies: Cough, Sputum production, Wheezing, Hemoptysis, Orthopnea, SOB at rest, SOB with exertion - Gastrointestinal Gastrointestinal: denies: Abdominal pain, Constipation, Diarrhea, Rectal bleeding, Black stools, Bloody stools, Nausea, Vomiting - Genitourinary Genitourinary: denies: Dysuria, Urgency, 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 - Musculoskeletal Musculoskeletal: denies: Muscle pain, Muscle aches, Limited range of motion - Integumentary Integumentary: denies: Rash, Lesions, Lumps - Neurological Neurological: reports: General weakness. denies: Focal weakness, Headache, Dizziness, Numbness, Memory problems, Abnormal gait, Seizures, Incoordination, Slurred speech - Psychiatric Psychiatric: denies: Anxiety, Suicidal, Delusions - Endocrine Endocrine: denies: Polyuria, Polydypsia - Hematologic/Lymphatic Hematologic/Lymphatic: denies: Anemia, Blood clots Prior Level of Functionality: pt is Independent in the home Exam - Vital Signs Vital Signs: Vital Signs x48h Temp Pulse Pulse Pulse Pulse Pulse Resp 06/19/20 16:13 36.6 C 99 21 06/19/20 16:00 102 H 21 06/19/20 14:41 96 12 06/19/20 14:13 108 H 154 H 94 06/19/20 12:41 36 C L 103 H 18 BP BP BP BP Pulse Ox 06/19/20 16:13 139/99 H 94 06/19/20 16:00 142/86 H 98 06/19/20 14:41 156/75 H 100 06/19/20 14:13 137/81 H 144/90 H 06/19/20 12:41 157/90 H 97 - Physical Exam General Appearance: positive: No acute distress, Alert. negative: Lethargic Eyes Bilateral: positive: Normal inspection, PERRL, No lid inflammation ENT: positive: ENT inspection nml, No signs of dehydration. negative: Purulent nasal drainage Neck: positive: Nml inspection, Trachea midline. negative: Thyromegaly, Tracheal deviation Respiratory: positive: Chest non-tender, No respiratory distress, Breath sounds nml. negative: Wheezes Cardiovascular: positive: Regular rate & rhythm, No murmur. negative: Tachycardia, Bradycardia, Systolic murmur, Diastolic murmur Peripheral Pulses: positive: 2+ Abdomen: positive: Non-tender, Nml bowel sounds, No distention. negative: Ten derness, Guarding, Rebound Back: positive: Nml inspection Skin: positive: Color nml, Warm, Dry. negative: Cyanosis, Diaphoresis, Pallor Extremities: positive: Non-tender, Full ROM, Nml appearance. negative: Calf tenderness Neurologic/Psychiatric: positive: Oriented x3, Motor nml, Sensation nml. n egative: Weakness, Sensory loss, Facial droop, Slurred/abnml speech, Depressed mood/affect Sepsis Event Note (H) - Evaluation Current Stage of Sepsis: Ruled out Conclusion/Plan - Problem List (1) Frequent falls Conclusion/Plan: Patient reported she had frequent falls, all image studies of CT Of head, neck, x-ray of the hip show unremarkable. Patient reported she feels very weakness in the home When she had multiple falls. We will consult physical therapist and occupational therapist, We will continue check orthostatic Vital signs. (2) Orthostatic intolerance Conclusion/Plan: pt was reported when she standup, she was unsteady and significant increased HR with reduced blood pressure, her heart rate increases to 150.We will hold patient blood pressure medication. Continue check orthostatic vital signs.Since patient also has pulmonary edema, we will hold intravenous IV fluids for now. Fall precautions. Consult with PT and OT (3) Acute on chronic renal insufficiency Conclusion/Plan: Patient had creatinine 1.6, increases from patient baseline. Patient taking L asix in the home, we will hold Lasix, since patient also had pulmonary edema, we will not give intravenous IV fluids now, Patient had 1 L intravenous IV fluids in the ER, Continue laboratory monitoring (4) Atrial fibrillation Conclusion/Plan: Patient's heart rate is controlled now, we will resume patient home Coreg and Eliquis. Continue monitor worker patient Qualifiers: Atrial fibrillation type: longstanding persistent Qualified Code(s): I48.11 - Longstanding persistent atrial fibrillation (5) Diabetes Conclusion/Plan: We will have sliding scale, ACH S check glucose level, check A1c for patient, Continue hypoglycemia protocol (6) Hypothyroidism Conclusion/Plan: We will check TSH, resume home Synthroid (7) HTN (hypertension) Conclusion/Plan: Patient take Lasix, Losartan, and Coreg in the home. We will hold Lasix, losartan. continue Coreg - Lab Results Fish Bones: 06/19/20 12:45 06/19/20 12:45 Core Measures - Anticipated LOS I expect patient to be DC'd or transferred within 96 hours.: Yes - DVT/VTE - Prophylaxis VTE/DVT Device ordered at admit?: Yes VTE/DVT Prophylaxis med ordered at admit?: Yes
[2020-06-19 17:20] LABS: CORONAVIRUS 229E-RESP PCR NOT DETECTED; CORONAVIRUS HKU1-RESP PCR NOT DETECTED; CORONAVIRUS NL63-RESP PCR NOT DETECTED; CORONAVIRUS OC43-RESP PCR NOT DETECTED; HUMAN METAPNEUMOVIRUS NOT DETECTED; INFLUENZA A- RESP PCR PANEL NOT DETECTED; INFLUENZA B - RESP PCR PANEL NOT DETECTED; PARAINFLUENZA VIRUS 1 NOT DETECTED; PARAINFLUENZA VIRUS 2 NOT DETECTED; RHINOVIRUS/ENTEROVIRUS NOT DETECTED; SARS-CoV-2 -RESP PCR PANEL NOT DETECTED
[2020-06-19 17:21] LABS: B. PARAPERTUSSIS- RESP PCR PAN NOT DETECTED; B. PERTUSSIS- RESP PCR PANEL NOT DETECTED; C. PNEUMONIAE- RESP PCR PANEL NOT DETECTED; M. PNEUMONIAE- RESP PCR PANEL NOT DETECTED; PARAINFLUENZA VIRUS 3 NOT DETECTED; PARAINFLUENZA VIRUS 4 NOT DETECTED; RSV- RESP PCR PANEL NOT DETECTED
[2020-06-19] MEDS: INSULIN ASPART 300 UNIT/3 ML PEN SUBQ SCH ×2 (17:27→21:28)
[2020-06-19] MEDS: APIXABAN 5 MG TABLET PO SCH (20:56)
[2020-06-19] MEDS: carvediloL 12.5 MG TABLET PO SCH (20:56)
[2020-06-19] MEDS ORDERED: FAMOTIDINE 20 MG TABLET PO SCH (21:00)
[2020-06-19] MEDS ORDERED: HEPARIN 5,000 UNIT/ML VIAL SUBQ SCH (21:00)
[2020-06-20] MEDS: SODIUM CHLORIDE FLUSH 0.9% 10 ML SYRINGE IVP SCH ×2 (00:40→09:16)
[2020-06-20 05:01] LABS: BASOPHILS % (AUTO) 0.5 %; EOSINOPHILS # (AUTO) 0.2 10^3/uL (0.0-0.7); HCT - HEMATOCRIT 37.9 % (37.0-47.0); HGB - HEMOGLOBIN 11.7 g/dL (12.0-16.0); LYMPHOCYTES # (AUTO) 1.4 10^3/uL (1.5-3.5); LYMPHOCYTES % (AUTO) 22.8 %; MEAN CORPUSCULAR HEMOGLOBIN 29.5 pg (27.0-31.0); MEAN CORPUSCULAR HGB CONC 30.9 g/dL (32.0-36.0); MEAN CORPUSCULAR VOLUME 95.5 fL (81.0-99.0); MEAN PLATELET VOLUME 10.9 fL (7.9-10.8); MONOCYTES # (AUTO) 0.5 10^3/uL (0.0-1.0); MONOCYTES % (AUTO) 8.9 %; NEUTROPHILS # (AUTO) 3.9 10^3/uL (1.5-6.6); NEUTROPHILS % (AUTO) 63.5 %; PLT - PLATELET COUNT 182 10^3/uL (130-450); RED BLOOD COUNT 3.97 10^6/uL (4.20-5.40); RED CELL DISTRIBUTION WIDTH 15.2 % (12.0-15.0); WHITE BLOOD COUNT 6.1 x10^3/uL (4.8-10.8)
[2020-06-20 05:17] LABS: CALCIUM 8.9 mg/dL (8.5-10.3); POTASSIUM 3.2 mmol/L (3.5-5.0)
[2020-06-20] MEDS ORDERED: LEVOTHYROXINE 75 MCG TABLET PO SCH (07:00)
[2020-06-20] MEDS ORDERED: LEVOTHYROXINE 100 MCG TABLET PO SCH (07:00)
[2020-06-20] MEDS ORDERED: POTASSIUM CHLORIDE 20 MEQ TABLET PO ONE (08:16)
[2020-06-20] MEDS: INSULIN ASPART 300 UNIT/3 ML PEN SUBQ SCH ×2 (08:23→11:52)
[2020-06-20] MEDS: carvediloL 12.5 MG TABLET PO SCH (09:12)
[2020-06-20] MEDS: APIXABAN 5 MG TABLET PO SCH (09:12)
[2020-06-20 11:39] VITALS: BP 111/58
--- NOTE | 2020-06-20 11:52 | PHARMACY PROGRESS NOTE ---
- Best Possible Medication History Admit Date and Time: 06/19/20 1509 Processed by: Pharmacy Medication History completed: Yes Patient Interview: Completed Secondary Source(s): Insurance records As the person ultimately responsible for medication therapy, providers are able to order a medication from an existing home medication list in [facility] via the "Reconcile Routine" prior to Confirmation of that medication by legal support analyst. Such practice is discouraged except when the physician, in their clinical judgment, deems that a medical need exists for a medication without regard to previous use.
--- NOTE | 2020-06-20 12:00 | Discharge Plan ---
Discharge Plan Problem Reviewed?: Yes Disposition: Home, Self Care Condition: Stable Diet: Diabetic Activity Restrictions: Activity as Tolerated Shower Restrictions: No (fall precaution) Instruction Topics: Dehydration, Falls Risks Prevent, Falls Change Living Space, Falls Prevent Safe Cane Walker, Treatment for Vasovagal Syncope Health Concerns: dehydration, fall, orthostatic intolerance Plan of Treatment: you had multiple falls in home, you were found to have dehydration and your kidney function was reduced, and orthostatic intolerance in the admission. After hydration, your kidney function is significantly improved, and your orthostatic status also had significant improved. Physical therapist evaluated and treated for you, you are recommended to have out-patient physical therapist to help you and prevention of your fall. Advise you keep hydration at home, fall precaution, and followup with out-patient physical therapist. Care Goals: stabilization and improvement of your medical conditions Assessment: discussed the care plan with you, answered your question, and you understood. Additional Instructions or Follow Up instructions: you may followup with your PCP in one to two weeks, have blood work to continue monitor your kidney function, followup with out-patient physical therapist and prevention of fall. Should your symptoms return or worsen, you may present ER or call 911 for help. Follow-Up Care: Outpatient Rehab - PT No Smoking: If you smoke, Please STOP! Call for help. Follow-up with: Elijah Gee MD [Primary Care Provider] -
--- NOTE | 2020-06-20 12:14 | DISCHARGE SUMMARY ---
Discharge Summary Admit Date: 06/19/20 Discharge Date: 06/20/20 Discharging Provider: Alvaro Garnett Primary Care Provider: Elijah Koroma Condition at Discharge: Stable Discharge Disposition: 01 Home, Self Care Discharge Facility Name: home - DIAGNOSES Discharge Diagnoses with Status of Each Condition: (1) Frequent falls pt report she had multiple falls in home, all image studies of CT Of head, neck, x-ray of the hip show unremarkable, pt denies pain. pt Had PT and OT evaluation and treatment, patient was recommended discharge to home with outpatient physical therapist and occupational therapist. orthostatic Vital signs improved. It is likely caused by pt's dehydration and hypovolemia. Advised the patient keep hydration but no over-fluid in the home, education to patient for fall precaution and prevention, and followup with outpatient physical therapist and occupational therapist. (2) Orthostatic intolerance Significantly improved. pt Had PT and OT evaluation and treatment, patient was recommended discharge to home with outpatient physical therapist and occupational therapist. It is likely caused by pt's dehydration and hypovolemia. Advised the patient keep hydration but no over-fluid in the home, education to patient for fall precaution and prevention, and followup with outpatient physical therapist and occupational therapist. (3) Acute on chronic renal insufficiency creatinine is 1.0 from admission 1.6. Advised the patient keep hydration in the home. (4) Atrial fibrillation stable (5) Diabetes stable (6) Hypothyroidism stable (7) HTN (hypertension) stable. - HPI History of Present Illness: Ms. 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 pt report she feel so weak and she is very difficult to stand up. after she stand up then she had falls. She reports that she did not remember how many times she fall when she tried to walk to bathroom. she denies loss of Consciousness. She Initially report she had mild head and neck pain but now she felt better. she is enjoying to eat her dinner by her own now. she denies focal neurological deficits. CT of head, neck was unremarkable. x-ray of hip was unremarkable also. Chest x-ray show small right pleural effusion with atelectasis versus, consolidation, Increases interstitial marking in both lung suggestion cardiogenic pulmonary edema with pleural effusion. Patient denies fever, chill, chest pain, cough, wheezing and shortness of breath. Routine laboratory tests show creatinine is 1.6. Patient had orthostatic vital signs check in the ER show patient significant elevated HR with unsteady balance. Given pt's multiple falls, orthostatic unsteady balance, Medical team was consulted for patient in the observation unit for further evaluation. Discussed care goal with patient, patient request full code - HOSPITAL COURSE Hospital Course: Patient was admitted for evaluation of frequent fall and orthostatic intolerance. Patient was found to have dehydration with hypovolemia. After the patient had Overnight treatment, pt had IVF at ER, And PT/OT's evaluation and treatment. Patient reported he feels much better. Patient's acute kidney injury was resolved. PT and OT recommended patient can be discharged to home with outpatient physical therapist and occupational therapist. Patient had extensive education for her how to prevention of fall and injury at home. - ALLERGIES Allergies/Adverse Reactions: Allergies Allergy/AdvReac Type Severity Reaction Status Date / Time codeine [Codeine] Allergy Unknown Rash Verified 06/19/20 12:49 GLORIA Inhibitors Allergy Unknown Verified 06/19/20 12:49 iodine Allergy Unknown Verified 06/19/20 12:49 tramadol Allergy Unknown Verified 06/19/20 12:49 shellfish derived AdvReac Unknown Unknown Verified 06/19/20 12:49 Calcium Channel Blocking AdvReac Edema Verified 06/19/20 15:45 Agents-Dih - MEDICATIONS Home Medications: Ambulatory Orders Medication Instructions Recorded Confirmed Terazosin [Hytrin] 5 mg PO BID 08/11/12 06/20/20 Multivitamin [Multivitamins] 1 each PO DAILY 10/06/12 06/20/20 Potassium Chloride [Micro-K] 20 meq PO BIDWM 10/06/12 06/20/20 Oxybutynin Chloride [Ditropan Xl] 15 mg PO DAILY PM 10/23/17 06/20/20 Apixaban [Eliquis] 5 mg BID 02/22/19 06/20/20 metFORMIN [Glucophage] 250 mg PO BID 02/22/19 06/20/20 Furosemide [Lasix] 40 mg PO DAILY #10 tablet 07/02/19 06/20/20 Ferrous Gluconate [Iron] 240 mg PO DAILY 11/24/19 06/20/20 Atorvastatin [Lipitor] 20 mg PO DAILY PM 06/20/20 06/20/20 Carvedilol [Coreg] 25 mg PO BID 06/20/20 06/20/20 Levothyroxine Sodium [Synthroid] 175 mcg PO QDAC 06/20/20 06/20/20 Losartan Potassium [Cozaar] 100 mg PO DAILY PM 06/20/20 06/20/20 - PHYSICAL EXAM AT DISCHARGE General Appearance: positive: No acute distress, Alert. negative: Lethargic Eyes Bilateral: positive: Normal inspection, PERRL, No lid inflammation ENT: positive: ENT inspection nml, No signs of dehydration. negative: Purulent nasal drainage Neck: positive: Nml inspection, Trachea midline. negative: Thyromegaly, Tracheal deviation Respiratory: positive: Chest non-tender, No respiratory distress. negative: Wheezes, Rales Cardiovascular: positive: Regular rate & rhythm, No murmur. negative: Tachycardia, Bradycardia, Systolic murmur, Diastolic murmur Peripheral Pulses: positive: 2+ Abdomen: positive: Non-tender, Nml bowel sounds, No distention. negative: Tenderness, Guarding, Rebound Back: positive: Nml inspection. negative: CVA tenderness (R), CVA tenderness (L) Skin: positive: Color nml, Warm, Dry. negative: Cyanosis, Diaphoresis, Pallor Extremities: positive: Non-tender, Full ROM. negative: Calf tenderness Neurologic/Psychiatric: positive: Oriented x3, Motor nml, Sensation nml, Mood/affect nml. negative: Weakness, Sensory loss, Facial droop, Slurred/abnml speech, Depressed mood/affect - LABS Result Diagrams: 06/20/20 04:07 06/20/20 04:07 - SEPSIS Current Stage of Sepsis: Ruled out - FOLLOW UP Follow Up: you had multiple falls in home, you were found to have dehydration and your kidney function was reduced, and orthostatic intolerance in the admission. After hydration, your kidney function is significantly improved, and your orthostatic status also had significant improved. Physical therapist evaluated and treated for you, you are recommended to have out-patient physical therapist to help you and prevention of your fall. Advise you keep hydration at home, fall precaution, and followup with out-patient physical therapist. you may followup with your PCP in one to two weeks, have blood work to continue monitor your kidney function, followup with out-patient physical therapist and prevention of fall. Should your symptoms return or worsen, you may present ER or call 911 for help. - TIME SPENT Time Spent in Discharge (Minutes): 30
[2020-06-20 13:34] LABS: ESTIMATED AVERAGE GLUCOSE 134 mg/dL (70-100); HEMOGLOBIN A1c% 6.3 % (4.27-6.07)
== END 2020-06-20 14:50 | disposition home or self-care (01) ==
LOC: EDUNIT# → ED 12:35 → MS3 15:09
PROVIDERS: ADMIT Nurse Practitioner Gerontology; ATTEND Nurse Practitioner Gerontology
DX: I95.1 Orthostatic hypotension (principal); E86.1 Hypovolemia; E86.0 Dehydration; E11.22 Type 2 diabetes mellitus with diabetic chronic kidney disease; I13.0 Hypertensive heart and chronic kidney disease with heart failure and stage 1 through stage 4 chronic kidney disease, or unspecified chronic kidney disease; I50.1 Left ventricular failure, unspecified; N18.9 Chronic kidney disease, unspecified; N17.9 Acute kidney failure, unspecified; Z91.81 History of falling; I48.11 Longstanding persistent atrial fibrillation; Z79.01 Long term (current) use of anticoagulants; Z20.822 Contact with and (suspected) exposure to COVID-19; E03.9 Hypothyroidism, unspecified; E11.51 Type 2 diabetes mellitus with diabetic peripheral angiopathy without gangrene; Z79.84 Long term (current) use of oral hypoglycemic drugs; Z85.3 Personal history of malignant neoplasm of breast; Z96.642 Presence of left artificial hip joint; R32 Unspecified urinary incontinence; K21.9 Gastro-esophageal reflux disease without esophagitis; E78.00 Pure hypercholesterolemia, unspecified; Z87.891 Personal history of nicotine dependence
CPT/HCPCS: 36415; 70450; 71045; 72125; 73502; 80048; 80053; 82550; 83036; 83690; 83880; 84443; 84484; 85025; 87631; 93005; 96360; 97162; 97166; 99284; 99285; A9270; G0378; 0202U

== ENCOUNTER 2020-06-21 16:54 | Outpatient (CLI) | payer MEDICARE, OTHER | END 2020-06-21 16:55 | disposition critical access hospital (66) | LOC: EMS 16:54 | PROVIDERS: ATTEND Registered Nurse | DX: R53.1 Weakness (principal); M54.5 Low back pain | CPT/HCPCS: A0425; A0427 ==

== ENCOUNTER 2020-06-21 17:11 | Emergency (ER) | payer MEDICARE, OTHER ==
[2020-06-21] MEDS ORDERED: SODIUM CHLORIDE 0.9% 1,000 ML IV STA ×2 (17:50→20:50)
[2020-06-21 18:03] LABS: BASOPHILS % (AUTO) 0.6 %; EOSINOPHILS # (AUTO) 0.3 10^3/uL (0.0-0.7); EOSINOPHILS % (AUTO) 4.5 %; HCT - HEMATOCRIT 32.9 % (37.0-47.0); HGB - HEMOGLOBIN 10.5 g/dL (12.0-16.0); LYMPHOCYTES # (AUTO) 0.5 10^3/uL (1.5-3.5); LYMPHOCYTES % (AUTO) 7.2 %; MEAN CORPUSCULAR HEMOGLOBIN 29.9 pg (27.0-31.0); MEAN CORPUSCULAR HGB CONC 31.9 g/dL (32.0-36.0); MEAN CORPUSCULAR VOLUME 93.7 fL (81.0-99.0); MEAN PLATELET VOLUME 9.7 fL (7.9-10.8); MONOCYTES # (AUTO) 0.6 10^3/uL (0.0-1.0); MONOCYTES % (AUTO) 8.9 %; NEUTROPHILS # (AUTO) 5.2 10^3/uL (1.5-6.6); NEUTROPHILS % (AUTO) 78.5 %; PLT - PLATELET COUNT 175 10^3/uL (130-450); RED BLOOD COUNT 3.51 10^6/uL (4.20-5.40); RED CELL DISTRIBUTION WIDTH 15.3 % (12.0-15.0); WHITE BLOOD COUNT 6.6 x10^3/uL (4.8-10.8)
--- NOTE | 2020-06-21 18:13 | XRAY Report ---
PROCEDURE: Chest 1 View X-Ray INDICATIONS: Chest Pain TECHNIQUE: One view of the chest was acquired. COMPARISON: Chest radiograph 06/19/2020 FINDINGS: Surgical changes and devices: Surgical clips are seen in the left axilla. Lungs and pleura: Stable small pleural effusion at the right lung base with atelectasis of the adjace nt right lower lobe. The central pulmonary vasculature appears mildly prominent, which has not signif icantly changed. The lungs are otherwise clear. Mediastinum: Mediastinal contours appear normal. Heart size is stable. Atherosclerotic calcificati ons are seen in the aortic arch. Bones and chest wall: No suspicious bony lesions. Overlying soft tissues appear unremarkable. IMPRESSION: Small right pleural effusion does not appear significantly changed. There is stable mild prominence o f the central pulmonary vasculature. Reviewed by: Jd Howard MD on 06/21/2020 5:11 PM IRINA Approved by: Jd Howard MD on 06/21/2020 5:11 PM IRINA Station ID: [id number]
[2020-06-21 18:24] LABS: ALBUMIN 3.2 g/dL (3.2-5.5); ALBUMIN/GLOBULIN RATIO 0.9 (1.0-2.2); BILIRUBIN,TOTAL 1.3 mg/dL (0.2-1.0); CALCIUM 9.5 mg/dL (8.5-10.3); CREATININE 1.2 mg/dL (0.4-1.0); POTASSIUM 3.7 mmol/L (3.5-5.0); TOTAL PROTEIN 6.6 g/dL (6.7-8.2)
--- NOTE | 2020-06-21 19:06 | CT Report ---
PROCEDURE: HEAD WO INDICATIONS: multiple falls, unreliable historian TECHNIQUE: Noncontrast 4.5 mm thick angled axial sections acquired from the foramen magnum to the vertex. For r adiation dose reduction, the following was used: automated exposure control, adjustment of mA and/or kV according to patient size. COMPARISON: CT head 08/19/2020. FINDINGS: Image quality: Excellent. CSF spaces: Basal cisterns are patent. No extra-axial fluid collections. Ventricles are normal in size and shape. Brain: No midline shift. No intracranial masses or hemorrhage. Chronic chondromalacia is seen in th e posterior aspect of the right frontal lobe that appears stable. Hypodensities in the subcortical an d periventricular white matter compatible with chronic microvascular ischemic changes. Skull and face: Calvarium and visualized facial bones are intact, without suspicious lesions. Sinuses: Mild mucosal thickening is seen in the ethmoid air cells bilaterally. Small air-fluid levels are seen in the bilateral maxillary sinuses. The mastoid air cells are clear. IMPRESSION: 1. No acute intracranial abnormality. 2. Stable chronic and stable malacia in the posterior aspect of the right frontal lobe. 3. Chronic age-related changes including mild diffuse cerebral atrophy and chronic microvascular isc hemic changes. 4. Mild paranasal sinus disease. Reviewed by: Jd Howard MD on 06/21/2020 6:05 PM IRINA Approved by: Jd Howard MD on 06/21/2020 6:05 PM IRINA Station ID: [id number]
--- NOTE | 2020-06-21 19:07 | CT Report ---
PROCEDURE: CERVICAL SPINE WO INDICATIONS: multiple falls since discharge TECHNIQUE: Noncontrast 3 mm thick sections acquired from the skull base to the T4 level. Sagittal and coronal r eformats were then constructed. For radiation dose reduction, the following was used: automated exp osure control, adjustment of mA and/or kV according to patient size. COMPARISON: None. FINDINGS: Image quality: Excellent. Bones: No fractures or dislocations. Severe cervical spondylosis. Large posterior osteophyte extendi ng from mid C5 to the C6-C7 disc level results in severe canal stenosis at C5-C6. There is severe casey ateral foraminal narrowing at C5-C6. There is prominent multilevel left facet arthropathy. Visualized superior ribs are intact. Soft tissues: Prevertebral soft tissues are normal in thickness. No paravertebral hematomas. No ap ical pneumothoraces. IMPRESSION: 1. No evidence of acute cervical fracture or dislocation. 2. Severe cervical spondylitic change with severe canal stenosis at C5-C6. There is also severe bilat eral foraminal narrowing at that level. Reviewed by: Javed Daniels MD on 06/21/2020 7:05 PM PDT Approved by: Javed Daniels MD on 06/21/2020 7:05 PM PDT Station ID: [id number]
--- NOTE | 2020-06-21 19:13 | CT Report ---
PROCEDURE: CHEST WO INDICATIONS: multiple falls TECHNIQUE: Noncontrast 5 mm thick sections acquired from the pulmonary apices to the posterior costophrenic angl es. 7 mm thick coronal and sagittal MIP reformats were then acquired. For radiation dose reduction, the following was used: automated exposure control, adjustment of mA and/or kV according to patient size. COMPARISON: FINDINGS: Image quality: Excellent. Lungs and pleura: No acute air space opacities. Small right pleural effusion. Multiple calcified ple ural plaques bilaterally are consistent with remote asbestos exposure. No suspicious pulmonary nodule s. Mediastinum: Heart size is normal. No pericardial effusion. Mild to moderate coronary artery calcif ications. No mediastinal adenopathy by size criteria. Thoracic aorta and central pulmonary arteries are normal in size. Dense proximal left subclavian artery calcifications with suspected proximal sub clavian artery stenosis. Esophagus is normal in caliber. No hiatal hernia. Bones and chest wall: No suspicious bony lesions. No vertebral body compression fractures. No axil pablo or supraclavicular adenopathy by size criteria. The thyroid is normal in size. Abdomen: Visualized upper abdominal solid organs and bowel loops appear normal in the absence of con trast. IMPRESSION: 1. No acute thoracic compression fractures. 2. No evidence significant sequelae of acute trauma. 3. Dense aortic atherosclerosis, left subclavian atherosclerosis with suspected proximal left subclav lauryn artery stenosis, coronary artery disease. 4. Remote asbestos exposure. 5. Small right pleural effusion. Reviewed by: Javed Daniels MD on 06/21/2020 7:12 PM PDT Approved by: Javed Daniels MD on 06/21/2020 7:12 PM PDT Station ID: [id number]
--- NOTE | 2020-06-21 19:23 | CT Report ---
PROCEDURE: Abdomen/Pelvis WO INDICATIONS: multiple falls since discharge TECHNIQUE: Noncontrast 5 mm thick sections acquired from the diaphragms to the symphysis. 5 mm coronal and sagi ttal reformats were then performed. For radiation dose reduction, the following was used: automated exposure control, adjustment of mA and/or kV according to patient size. COMPARISON: None. FINDINGS: Image quality: Excellent. ABDOMEN: Lung bases: Calcified pleural plaques. Small right pleural effusion. Coronary artery calcifications. Normal heart size. Solid organs: Liver and spleen are normal in size. Gallbladder contains probable tiny gallstones. Pancreas is normal in contours. No adrenal nodules. Kidneys are normal in size, without hydronephro sis. 3 mm nonobstructing right upper pole renal stone. Peritoneum and bowel: Unenhanced bowel loops demonstrate normal wall thickness and caliber. There is a duodenal diverticulum containing debris and possible opaque pills. Surgical clips involving the cecum. No free fluid or air. Nodes and vessels: No retroperitoneal or mesenteric adenopathy by size criteria. Aorta and inferior vena cava are normal in caliber. Dense abdominal aortic and bilateral iliac atherosclerotic calcifi cations. There is a severe distal aortic calcified stenosis at the aortic bifurcation. There is a diana w limiting calcified stenosis of the proximal left common iliac artery. Miscellaneous: No ventral hernias. There is acute hematoma involving the posterior lateral left subc utaneous fat extending from the level of L2 inferiorly to the level of the left iliac wing. PELVIS: Genitourinary: Bladder wall thickness is normal. Miscellaneous: No inguinal hernias or adenopathy. Bones: No suspicious bony lesions. No vertebral body compression fractures. IMPRESSION: 1. There is a subcutaneous hematoma in the left posterior lateral subcutaneous tissues at the lower a bdomen and upper pelvis. 2. No acute bony fracture. 3. No evidence of significant visceral injury on this noncontrast study. 4. Asbestos exposure, small right pleural effusion. 5. Advanced peripheral vascular disease. Findings include a severe calcified distal aortic stenosis a nd a severe calcified left common iliac artery stenosis. Reviewed by: Javed Daniels MD on 06/21/2020 7:21 PM PDT Approved by: Javed Daniels MD on 06/21/2020 7:21 PM PDT Station ID: [id number]
--- NOTE | 2020-06-21 20:53 | ED Physician Documentation ---
History of Present Illness - Stated complaint Stated Complaint: WEAKNESS - Chief complaint Chief Complaint: General - History obtained from History obtained from: Patient - History of Present Illness Timing: How many days ago (4) - Additonal information Additional information: 80-year-old female has become dehydrated and has had multiple falls. She is on Eliquis. She was admitted to the hospital the day before yesterday was given intravenous fluids and returned home. She states she drank fluids for about a half a day and then had problems with falling again. She presented back to the emergency department today with more falls and she again feels dehydrated today. She denies any specific urinary symptoms but after questioning she does state that she has decreased her oral fluid intake so that she does not have to get up to go to the bathroom and this started about 6 months ago. She actually did not realize she was doing this until I talk to her about it. She denies any fever nausea vomiting cough or diarrhea. I reviewed the patient's chart she has had issues with dehydration and acute kidney injury a number of times previously. She has had urinary tract infection previously associated with this. She does not have specific symptoms of urinary tract infection and urinalysis was not performed on her prior visit. 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: Hysterectomy, Other HEENT: Cataracts - Present Medications Home Medications: Ambulatory Orders Medication Instructions Recorded Confirmed Terazosin [Hytrin] 5 mg PO BID 08/11/12 06/20/20 Multivitamin [Multivitamins] 1 each PO DAILY 10/06/12 06/20/20 Potassium Chloride [Micro-K] 20 meq PO BIDWM 10/06/12 06/20/20 Oxybutynin Chloride [Ditropan Xl] 15 mg PO DAILY PM 10/23/17 06/20/20 Apixaban [Eliquis] 5 mg BID 02/22/19 06/20/20 metFORMIN [Glucophage] 250 mg PO BID 02/22/19 06/20/20 Furosemide [Lasix] 40 mg PO DAILY #10 tablet 07/02/19 06/20/20 Ferrous Gluconate [Iron] 240 mg PO DAILY 11/24/19 06/20/20 Atorvastatin [Lipitor] 20 mg PO DAILY PM 06/20/20 06/20/20 Carvedilol [Coreg] 25 mg PO BID 06/20/20 06/20/20 Levothyroxine Sodium [Synthroid] 175 mcg PO QDAC 06/20/20 06/20/20 Losartan Potassium [Cozaar] 100 mg PO DAILY PM 06/20/20 06/20/20 Amox/Clav 875/125 [Augmentin] 1 each PO Q12H #14 tablet 06/22/20 - Allergies Allergies/Adverse Reactions: Allergies Allergy/AdvReac Type Severity Reaction Status Date / Time codeine [Codeine] Allergy Unknown Rash Verified 06/21/20 17:38 GLORIA Inhibitors Allergy Unknown Verified 06/21/20 17:38 iodine Allergy Unknown Verified 06/21/20 17:38 tramadol Allergy Unknown Verified 06/21/20 17:38 shellfish derived AdvReac Unknown Unknown Verified 06/21/20 17:38 Calcium Channel Blocking AdvReac Edema Verified 06/21/20 17:38 Agents-Dih - Social History Does the pt smoke?: No Smoking Status: Never smoker Does the pt drink ETOH?: No Does the pt have substance abuse?: No - Immunizations Immunizations are current?: Yes - POLST Patient has POLST: No POLST Status: Full Code PD ED PE NORMAL - Vitals Vital signs reviewed: Yes (normal ) - General General: Alert and oriented X 3, No acute distress, Well developed/nourished - HEENT HEENT: Atraumatic, PERRL, EOMI - Neck Neck: Supple, no meningeal sign - Cardiac Cardiac: RRR, Other (1/6 holosystolic murmer with muffled heart sounds. 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, No motor deficit, No sensory deficit, Normal speech Eye Opening: Spontaneous Motor: Obeys Commands Verbal: Oriented GCS Score: 15 - Psych Psych: Normal mood, Normal affect Results - Vitals Vitals: Vital Signs - 24 hr 06/21/20 06/21/20 06/21/20 17:13 18:00 19:26 Temperature 36 C L Heart Rate 86 100 Heart Rate [ 108 H Sitting] Heart Rate [ 109 H Standing] Heart Rate [ 99 Supine] Respiratory 16 20 Rate Blood Pressure 121/61 109/62 Blood Pressure 150/115 H [Sitting] Blood Pressure 141/121 H [Standing] Blood Pressure 126/91 H [Supine] O2 Saturation 97 98 06/21/20 06/21/20 06/22/20 20:00 23:56 01:14 Temperature Heart Rate 110 H 96 91 Heart Rate [ Sitting] Heart Rate [ Standing] Heart Rate [ Supine] Respiratory 20 18 15 Rate Blood Pressure 144/104 H 121/59 L 144/57 H Blood Pressure [Sitting] Blood Pressure [Standing] Blood Pressure [Supine] O2 Saturation 99 96 96 06/22/20 06/22/20 06/22/20 01:53 03:00 05:00 Temperature 36.2 C L 36.3 C L Heart Rate 92 84 87 Heart Rate [ Sitting] Heart Rate [ Standing] Heart Rate [ Supine] Respiratory 15 16 15 Rate Blood Pressure 111/49 L 118/107 H 132/58 H Blood Pressure [Sitting] Blood Pressure [Standing] Blood Pressure [Supine] O2 Saturation 98 97 98 06/22/20 07:00 Temperature 36.4 C L Heart Rate 99 Heart Rate [ Sitting] Heart Rate [ Standing] Heart Rate [ Supine] Respiratory 18 Rate Blood Pressure 115/70 Blood Pressure [Sitting] Blood Pressure [Standing] Blood Pressure [Supine] O2 Saturation 100 Oxygen O2 Source [With Activity] Nasal cannula O2 Source [Without Activity] Room air O2 Source Room air - EKG (time done) 1721 Rate: Rate (enter#) (89) Rhythm: Atrial fibrillation Intervals: Wide QRS (borderline) Ischemia: Non specific changes Compare to prior EKG: Unchanged from prior EKG (SPT 06-19-2020 no changes) Computer interpretation: Agree with computer - Labs Labs: Laboratory Tests 06/21/20 06/21/20 06/21/20 17:56 17:56 17:56 WBC 6.6 RBC 3.51 L Hgb 10.5 L Hct 32.9 L MCV 93.7 MCH 29.9 MCHC 31.9 L RDW 15.3 H Plt Count 175 MPV 9.7 Neut # (Auto) 5.2 Lymph # (Auto) 0.5 L [place] # (Auto) 0.6 Eos # (Auto) 0.3 Baso # (Auto) 0.0 Absolute Nucleated RBC 0.00 Nucleated RBC % 0.0 Sodium 139 Potassium 3.7 Chloride 103 Carbon Dioxide 26 Anion Gap 10.0 BUN 34 H Creatinine 1.2 H Estimated GFR (MDRD) 43 L Glucose 97 Calcium 9.5 Total Bilirubin 1.3 H AST 20 ALT 16 Alkaline Phosphatase 72 Troponin I High Sens 12.8 Total Protein 6.6 L Albumin 3.2 Globulin 3.4 Albumin/Globulin Ratio 0.9 L Lipase 20 L Urine Color Urine Clarity Urine pH Ur Specific [place] Urine Protein Urine Glucose (UA) Urine Ketones Urine Occult Blood Urine Nitrite Urine Bilirubin Urine Urobilinogen Ur Leukocyte Esterase Urine RBC Urine WBC Ur Squamous Epith Cells Urine Bacteria Ur Microscopic Review Urine Culture Comments 06/21/20 22:05 WBC RBC Hgb Hct MCV MCH MCHC RDW Plt Count MPV Neut # (Auto) Lymph # (Auto) [place] # (Auto) Eos # (Auto) Baso # (Auto) Absolute Nucleated RBC Nucleated RBC % Sodium Potassium Chloride Carbon Dioxide Anion Gap BUN Creatinine Estimated GFR (MDRD) Glucose Calcium Total Bilirubin AST ALT Alkaline Phosphatase Troponin I High Sens Total Protein Albumin Globulin Albumin/Globulin Ratio Lipase Urine Color YELLOW Urine Clarity SL. CLOUDY Urine pH 5.5 Ur Specific [place] 1.015 Urine Protein NEGATIVE Urine Glucose (UA) NEGATIVE Urine Ketones NEGATIVE Urine Occult Blood SMALL H Urine Nitrite NEGATIVE Urine Bilirubin NEGATIVE Urine Urobilinogen 0.2 (NORMAL) Ur Leukocyte Esterase LARGE H Urine RBC 0-5 Urine WBC >25 H Ur Squamous Epith Cells RARE Squamous Urine Bacteria Few Ur Microscopic Review INDICATED Urine Culture Comments INDICATED - Rads (name of study) CT head Radiology: Prelim report reviewed (Impression: 1. No acute intracranial abnormality. Stable chronic and stable malacia in the posterior aspect of the right frontal lobe. Chronic age-related changes including mild diffuse cerebral atrophy and chronic microvascular ischemic changes. Mild paranasal sinus disease.), EMP read indepedently, See rad report CT cervical spine Radiology: Prelim report reviewed (Impression: 1. No evidence of acute cervical fracture or dislocation. Severe cervical spondylitic change with severe canal stenosis at C5-C6. There is also severe bilateral foraminal narrowing at that level.), EMP read indepedently, See rad report CT ab/pel Radiology: Prelim report reviewed (Impression: 1. There is a subcutaneous hematoma in the left posterior lateral subcutaneous tissues at the lower abdomen and upper pelvis. No acute bony fracture. No evidence of significant visceral injury on this noncontrast study. Asbestos exposure, small right pleural effusion. ), Final report received (. Advanced peripheral vascular disease. Findings included severe calcified distal aortic stenosis and a severe calcified left common iliac artery stenosis), EMP read indepedently, See rad report CT chest Radiology: Prelim report reviewed (Impression: 1. No acute thoracic compression fx. No evidence of significant sequelae of acute trauma. Dense aortic atherosclerosis, L subclavicle atherosclerosis with suspected proximal L subclavian artery stenosis, coronary artery disease. Remote asbestos exposure. Small R pleural effussion.) Procedures - IVC sono (time) 2049 Bedside IVC sono: IVC measures (cm) (1.34), IVC collapsed c insp (cm) (complete), Dehydration (est 1 liter deficit afte one liter is in.) PD MEDICAL DECISION MAKING - ED course Complexity details: reviewed old records, reviewed results, re-evaluated patient, considered differential, d/w patient ED course: 80-year-old female history of atrial fibrillation and aortic stenosis is dehydrated and she has been into the emergency department admitted into the hospital hydrated and continues to have issues. With falls. She is evaluated here today by Dr. Cantu and extensive imaging was obtained as the patient had pain all over and this did not demonstrate any evidence of fracture. Here in the emergency department I have evaluated the patient found her to be dehydrated on the order of 1 L after 1 L has been given here in the emergency department. She is hydrated with an additional liter of fluid and after reviewing her record from prior she has had acute kidney injury and associated urinary tract infection and because she has no symptoms we did not check her urine previously we will hydrate her further today and obtain a catheterized urine specimen. Today the urine is positive for infection. The patient is still dehydrated. She is administered more fluids, she is given Rocephin intravenously. She is a risk for fall and is on Eliquis. She will be admitted in the hospital this evening. She is on diuretic and significantly dehydrated. I contacted the hospitalist Dr. Nguyễn and he did not feel the patient met criteria for admission. She has had recent hydration and was discharged with a creatinine of 1.0 and ambulating with a walker. He recommended treatment of the urinary tract infection as an outpatient. As such the patient was boarded in the ED overnight, given additional fluids and we will road test in the AM. She is able to pass the road test and is discharged to home. Departure - Departure Disposition: Home, Self Care Clinical Impression: Frequent falls, Dehydration Urinary tract infection Qualifiers: Urinary tract infection type: acute cystitis Hematuria presence: without hematuria Qualified Code(s): N30.00 - Acute cystitis without hematuria Instructions: ED Dehydration, ED UTI Cystitis Female Follow-Up: Elijah Gee MD [Primary Care Provider] - Prescriptions: Amox/Clav 875/125 [Augmentin] 1 each PO Q12H #14 tablet Comments: Today we have identified a fluid balance problem that will require you to weigh yourself daily. Stop your lasix today. Consider today's weight your dry weight and if you have a fluctuation, and your weight goes up 2 to 4 pounds take your Lasix.
--- NOTE | 2020-06-21 21:47 | ED Physician Documentation ---
History of Present Illness - Stated complaint Stated Complaint: WEAKNESS - Chief complaint Chief Complaint: General - History obtained from History obtained from: Patient - Additonal information Additional information: 80yF bibems s/p fall today. patient has had multiple falls increasing in frequency recently and was admitted for observation here with mild deonte 06/19- 06/20. she states she fell several times yesterday after her discharge and then again today after urinating on the toilet and trying to get up. "My legs gave out". Patient states she was unable to get herself up and her was too frail to help. unsure if she hit her head. pt c/o neck pain, L posterior chest wall pain, and midlower back pain. denies numbness/weakness. [id number] Review of Systems Ten Systems: 10 systems reviewed and negative Constitutional: denies: Fever GI: denies: Abdominal Pain, Nausea Skin: reports: Abrasion (s) (bilateral knees), Laceration (s) (small laceration of scalp, partially healing), Other (multiple ecchymoses) Musculoskeletal: reports: Neck pain, Back pain Neurologic: reports: Generalized weakness PD PAST MEDICAL HISTORY - Past Medical History Past Medical History: Yes Cardiovascular: Hypertension, High cholesterol, Coronary artery disease, Peripheral Vascular Disease Respiratory: None Neuro: Dementia, Other Endocrine/Autoimmune: Type 2 diabetes GI: GERD, Colon polyps, Chronic constipation 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 : 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 HEENT: None Psych: None Musculoskeletal: Osteoarthritis Derm: None - Past Surgical History Past Surgical History: Yes General: Colonoscopy, EGD Ortho: Hip replacement, Spine surgery /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: Hysterectomy, Other HEENT: Cataracts - Present Medications Home Medications: Ambulatory Orders Medication Instructions Recorded Confirmed Terazosin [Hytrin] 5 mg PO BID 08/11/12 06/20/20 Multivitamin [Multivitamins] 1 each PO DAILY 10/06/12 06/20/20 Potassium Chloride [Micro-K] 20 meq PO BIDWM 10/06/12 06/20/20 Oxybutynin Chloride [Ditropan Xl] 15 mg PO DAILY PM 10/23/17 06/20/20 Apixaban [Eliquis] 5 mg BID 02/22/19 06/20/20 metFORMIN [Glucophage] 250 mg PO BID 02/22/19 06/20/20 Furosemide [Lasix] 40 mg PO DAILY #10 tablet 07/02/19 06/20/20 Ferrous Gluconate [Iron] 240 mg PO DAILY 11/24/19 06/20/20 Atorvastatin [Lipitor] 20 mg PO DAILY PM 06/20/20 06/20/20 Carvedilol [Coreg] 25 mg PO BID 06/20/20 06/20/20 Levothyroxine Sodium [Synthroid] 175 mcg PO QDAC 06/20/20 06/20/20 Losartan Potassium [Cozaar] 100 mg PO DAILY PM 06/20/20 06/20/20 - Allergies Allergies/Adverse Reactions: Allergies Allergy/AdvReac Type Severity Reaction Status Date / Time codeine [Codeine] Allergy Unknown Rash Verified 06/21/20 17:38 GLORIA Inhibitors Allergy Unknown Verified 06/21/20 17:38 iodine Allergy Unknown Verified 06/21/20 17:38 tramadol Allergy Unknown Verified 06/21/20 17:38 shellfish derived AdvReac Unknown Unknown Verified 06/21/20 17:38 Calcium Channel Blocking AdvReac Edema Verified 06/21/20 17:38 Agents-Dih - Social History Does the pt smoke?: No Smoking Status: Never smoker Does the pt drink ETOH?: No Does the pt have substance abuse?: No - Immunizations Immunizations are current?: Yes - POLST Patient has POLST: No POLST Status: Full Code PD ED PE NORMAL - Vitals Vital signs reviewed: Yes - General General: Alert and oriented X 3, No acute distress, Other (frail appearing, deconditioned) - HEENT HEENT: PERRL, EOMI, Moist mucous membranes, Pharynx benign, Dentition benign, Other (superficial parietal laceration with granulation tissue formation. otherwise scalp atraumatic. ) - Neck Neck: Other (midline cervical spine ttp) - Cardiac Cardiac: RRR, Other (L chest wall discomfort to palpation. scattered ecchymosis) - Respiratory Respiratory: No respiratory distress, Clear bilaterally - Abdomen Abdomen: Non tender, Non distended - Back Back: Other (midlumbar spine ttp) - Derm Derm: Normal color, Warm and dry, Other (multiple sites of ecchymoses in varying states of healing. BL knee abrasions) - Extremities Extremities: No deformity, Normal ROM s pain - Neuro Neuro: Alert and oriented X 3 - Psych Psych: Other (depressed mood and affect) Results - Vitals Vitals: Vital Signs - 24 hr 06/21/20 06/21/20 06/21/20 17:13 18:00 19:26 Temperature 36 C L Heart Rate 86 100 Heart Rate [ 108 H Sitting] Heart Rate [ 109 H Standing] Heart Rate [ 99 Supine] Respiratory 16 20 Rate Blood Pressure 121/61 109/62 Blood Pressure 150/115 H [Sitting] Blood Pressure 141/121 H [Standing] Blood Pressure 126/91 H [Supine] O2 Saturation 97 98 06/21/20 20:00 Temperature Heart Rate 110 H Heart Rate [ Sitting] Heart Rate [ Standing] Heart Rate [ Supine] Respiratory 20 Rate Blood Pressure 144/104 H Blood Pressure [Sitting] Blood Pressure [Standing] Blood Pressure [Supine] O2 Saturation 99 Oxygen O2 Source [With Activity] Nasal cannula O2 Source [Without Activity] Room air O2 Source Room air - Labs Labs: Laboratory Tests 06/21/20 06/21/20 06/21/20 17:56 17:56 17:56 WBC 6.6 RBC 3.51 L Hgb 10.5 L Hct 32.9 L MCV 93.7 MCH 29.9 MCHC 31.9 L RDW 15.3 H Plt Count 175 MPV 9.7 Neut # (Auto) 5.2 Lymph # (Auto) 0.5 L [place] # (Auto) 0.6 Eos # (Auto) 0.3 Baso # (Auto) 0.0 Absolute Nucleated RBC 0.00 Nucleated RBC % 0.0 Sodium 139 Potassium 3.7 Chloride 103 Carbon Dioxide 26 Anion Gap 10.0 BUN 34 H Creatinine 1.2 H Estimated GFR (MDRD) 43 L Glucose 97 Calcium 9.5 Total Bilirubin 1.3 H AST 20 ALT 16 Alkaline Phosphatase 72 Troponin I High Sens 12.8 Total Protein 6.6 L Albumin 3.2 Globulin 3.4 Albumin/Globulin Ratio 0.9 L Lipase 20 L PD MEDICAL DECISION MAKING - ED course ED course: 80yF presents s/p fall today, bibems after and she were unable to get her up from floor. Just seen for DEONTE and weakness and discharged yesterday. labwork with worsening kidney function and anemia from yesterday. panscan ordered. patient endorsed to Dr. Turcios pending CT results.
[2020-06-21 22:25] LABS: BILIRUBIN,URINE NEGATIVE (NEGATIVE); GLUCOSE, URINE (UA) NEGATIVE (NEGATIVE); KETONES,URINE (UA) NEGATIVE (NEGATIVE); LEUKOCYTE ESTERASE, URINE LARGE (NEGATIVE); NITRITE,URINE NEGATIVE (NEGATIVE); OCCULT BLOOD,URINE SMALL (NEGATIVE); PH,URINE 5.5 PH (5.0-7.5); PROTEIN,URINE NEGATIVE (NEGATIVE); UROBILINOGEN,URINE 0.2 (NORMAL) E.U./dL (NORMAL)
[2020-06-21 22:27] LABS: CLARITY,URINE SL. CLOUDY (CLEAR)
[2020-06-21 22:31] LABS: BACTERIA,URINE Few /HPF (None Seen); RBC,URINE 0-5 /HPF (0-5); SQUAMOUS EPITHELIAL CELL,UR RARE Squamous (<= Few); WBC,URINE >25 /HPF (0-5)
[2020-06-21] MEDS ORDERED: cefTRIAXone 1 GM in SODIUM CHLORIDE 0.9% MINIBAG 100 ML IV STA (22:35)
[2020-06-21] MEDS ORDERED: cefTRIAXone 1 GM VIAL ONE (22:50)
[2020-06-22 07:00] VITALS: BP 115/70
== END 2020-06-22 08:34 | disposition home or self-care (01) ==
LOC: EDUNIT# → SUPCPDRO 17:11 → ED 17:11
DX: E86.0 Dehydration (principal); W18.11XA Fall from or off toilet without subsequent striking against object, initial encounter; Z91.81 History of falling; N17.9 Acute kidney failure, unspecified; N39.0 Urinary tract infection, site not specified; I10 Essential (primary) hypertension; I73.9 Peripheral vascular disease, unspecified; F03.90 Unspecified dementia, unspecified severity, without behavioral disturbance, psychotic disturbance, mood disturbance, and anxiety; Z79.84 Long term (current) use of oral hypoglycemic drugs; E11.9 Type 2 diabetes mellitus without complications; I48.91 Unspecified atrial fibrillation; Z79.01 Long term (current) use of anticoagulants; D64.9 Anemia, unspecified
CPT/HCPCS: 36415; 51701; 80053; 81001; 81003; 83690; 84484; 85025; 87086; 87181; 93005; 99283

== ENCOUNTER 2020-09-05 08:00 | Outpatient (CLI) | payer MEDICARE, OTHER ==
[2020-09-05 11:54] LABS: BASOPHILS # (AUTO) 0.1 10^3/uL (0.0-0.1); BASOPHILS % (AUTO) 0.8 %; EOSINOPHILS # (AUTO) 3.3 10^3/uL (0.0-0.7); EOSINOPHILS % (AUTO) 39.8 %; HCT - HEMATOCRIT 38.4 % (37.0-47.0); HGB - HEMOGLOBIN 11.5 g/dL (12.0-16.0); LYMPHOCYTES % (AUTO) 11.7 %; MEAN CORPUSCULAR HEMOGLOBIN 28.8 pg (27.0-31.0); MEAN CORPUSCULAR HGB CONC 29.9 g/dL (32.0-36.0); MEAN CORPUSCULAR VOLUME 96.2 fL (81.0-99.0); MEAN PLATELET VOLUME 10.7 fL (7.9-10.8); MONOCYTES # (AUTO) 0.4 10^3/uL (0.0-1.0); MONOCYTES % (AUTO) 5.1 %; NEUTROPHILS # (AUTO) 3.5 10^3/uL (1.5-6.6); NEUTROPHILS % (AUTO) 42.2 %; PLT - PLATELET COUNT 194 10^3/uL (130-450); RED BLOOD COUNT 3.99 10^6/uL (4.20-5.40); RED CELL DISTRIBUTION WIDTH 16.2 % (12.0-15.0); SLIDE REVIEW? Indicated; WHITE BLOOD COUNT 8.3 x10^3/uL (4.8-10.8)
[2020-09-05 12:09] LABS: CREATININE,URINE 156.5 mg/dL; MICROALBUM/CREATININE RATIO,UR 70.3 ug/mg (<30.0)
[2020-09-05 12:22] LABS: ALBUMIN 3.3 g/dL (3.2-5.5); ALBUMIN/GLOBULIN RATIO 0.8 (1.0-2.2); ALKALINE PHOSPHATASE 120 IU/L (42-121); ALT ALANINE AMINOTRANSFERASE 20 IU/L (10-60); AST ASPARTATE AMINOTRANSFERASE 21 IU/L (10-42); BILIRUBIN,TOTAL 0.6 mg/dL (0.2-1.0); BUN - BLOOD UREA NITROGEN 18 mg/dL (6-20); CALCIUM 9.5 mg/dL (8.5-10.3); CARBON DIOXIDE - CO2 28 mmol/L (21-32); CHLORIDE 106 mmol/L (101-111); CHOL/HDL RATIO 3.7 (<4.4); CHOLESTEROL 71 mg/dL; CREATININE 0.9 mg/dL (0.4-1.0); GFR - MDRD 60 (>89); GLUCOSE 129 mg/dL (70-100); HDL CHOLESTEROL 19 mg/dL; LDL CHOLESTEROL,CALCULATED 38 mg/dL; POTASSIUM 5.3 mmol/L (3.5-5.0); SODIUM 143 mmol/L (135-145); TOTAL PROTEIN 7.2 g/dL (6.7-8.2); TRIGLYCERIDES 69 mg/dL; VLDL CHOLESTEROL 14 mg/dL
[2020-09-05 12:31] LABS: ESTIMATED AVERAGE GLUCOSE 126 mg/dL (70-100)
[2020-09-05 12:56] LABS: RBC MORPHOLOGY (MULTIPLE) 3+ ANISOCYTOSIS (NORMAL)
== END 2020-09-05 23:59 | disposition home or self-care (01) ==
LOC: LAB.WCP 08:00
PROVIDERS: ATTEND Family Medicine
DX: Q21.1 Atrial septal defect (principal); E78.5 Hyperlipidemia, unspecified; I48.0 Paroxysmal atrial fibrillation; Z79.01 Long term (current) use of anticoagulants; E11.9 Type 2 diabetes mellitus without complications; I11.0 Hypertensive heart disease with heart failure; I50.22 Chronic systolic (congestive) heart failure; E03.9 Hypothyroidism, unspecified
CPT/HCPCS: 36415; 80053; 80061; 82043; 82570; 83036; 83721; 84443; 85025

== ENCOUNTER 2020-10-16 08:00 | Outpatient (CLI) | payer MEDICARE, OTHER ==
[2020-10-16 13:13] LABS: CALCIUM 9.3 mg/dL (8.5-10.3); CREATININE 0.9 mg/dL (0.4-1.0); POTASSIUM 4.1 mmol/L (3.5-5.0)
== END 2020-10-16 23:59 | disposition home or self-care (01) ==
LOC: LAB.WCP 08:00
PROVIDERS: ATTEND Family Medicine
DX: I50.22 Chronic systolic (congestive) heart failure (principal); R06.02 Shortness of breath; Q21.1 Atrial septal defect; I48.91 Unspecified atrial fibrillation
CPT/HCPCS: 36415; 80048; 83880

== ENCOUNTER 2020-12-04 18:25 | Outpatient (CLI) | payer MEDICARE, OTHER | END 2020-12-04 18:26 | disposition critical access hospital (66) | LOC: EMS 18:25 | DX: R41.0 Disorientation, unspecified (principal); R42 Dizziness and giddiness; W18.39XA Other fall on same level, initial encounter; Y92.003 Bedroom of unspecified non-institutional (private) residence as the place of occurrence of the external cause; Z79.01 Long term (current) use of anticoagulants | CPT/HCPCS: A0425; A0429 ==

== ENCOUNTER 2020-12-04 18:41 | Emergency (ER) | payer MEDICARE, OTHER ==
--- NOTE | 2020-12-04 18:54 | ED Physician Documentation ---
PD HPI Fall - Stated complaint Stated Complaint: GLF - Chief complaint Chief Complaint: Neuro - History obtained from History obtained from: Patient - History of Present Illness Mechanism of injury: Slipped, Lost balance. No: Syncope Fall distance: Standing position Where injury occurred: Home Timing - onset: Yesterday Injury(ies) location: Right Lower Extremity (The patient has reportedly been feeling generally weak and having some stumbling with walking. She fell onto her right knee yesterday with some soreness of it. She had a mild headache today. She denies striking her head. No focal weaknesses.). No: Head, Face, Neck, Chest, Abdomen Quality of pain: Aching Associated symptoms: No: LOC, AMS Worsens with: Movement (right knee hurts with extension and with anterior palpation.) Contributing factors: Anticoagulated. No: Intoxicated Similar symptoms before: Has not had sx before Review of Systems Constitutional: denies: Fever, Chills Nose: denies: Rhinorrhea / runny nose, Congestion Throat: denies: Sore throat Cardiac: denies: Chest pain / pressure Respiratory: denies: Cough GI: denies: Abdominal Pain, Vomiting, Diarrhea, Bloody / black stool Skin: denies: Abrasion (s), Laceration (s) Musculoskeletal: reports: Joint pain (just the right knee) Neurologic: reports: Generalized weakness. 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 : 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 HEENT: None Psych: None Musculoskeletal: Osteoarthritis Derm: None - Past Surgical History Past Surgical History: Yes General: Colonoscopy, EGD Ortho: Hip replacement, Spine surgery /COSTUME TECHNICIAN: Hysterectomy, Other HEENT: Cataracts - Present Medications Home Medications: Ambulatory Orders Medication Instructions Recorded Confirmed Terazosin [Hytrin] 5 mg PO BID 08/11/12 07/31/20 Multivitamin [Multivitamins] 1 each PO DAILY 10/06/12 07/31/20 Potassium Chloride [Micro-K] 20 meq PO BIDWM 10/06/12 07/31/20 Oxybutynin Chloride [Ditropan Xl] 15 mg PO DAILY PM 10/23/17 07/31/20 Apixaban [Eliquis] 5 mg BID 02/22/19 07/31/20 metFORMIN [Glucophage] 250 mg PO BID 02/22/19 07/31/20 Furosemide [Lasix] 40 mg PO DAILY #10 tablet 07/02/19 07/31/20 Ferrous Gluconate [Iron] 240 mg PO DAILY 11/24/19 07/31/20 Atorvastatin [Lipitor] 20 mg PO DAILY PM 06/20/20 07/31/20 Carvedilol [Coreg] 25 mg PO BID 06/20/20 07/31/20 Levothyroxine Sodium [Synthroid] 175 mcg PO QDAC 06/20/20 07/31/20 Losartan Potassium [Cozaar] 100 mg PO DAILY PM 06/20/20 07/31/20 Amox/Clav 875/125 [Augmentin] 1 each PO Q12H #14 tablet 06/22/20 07/31/20 Magnesium Oxide [Mag Ox] 400 mg PO DAILY #10 tablet 12/04/20 Potassium Chloride [Micro-K] 10 meq PO BIDWM 10 Days #20 12/04/20 - Allergies Allergies/Adverse Reactions: Allergies Allergy/AdvReac Type Severity Reaction Status Date / Time codeine [Codeine] Allergy Unknown Rash Verified 12/04/20 18:48 GLORIA Inhibitors Allergy Unknown Verified 12/04/20 18:48 iodine Allergy Unknown Verified 12/04/20 18:48 tramadol Allergy Unknown Verified 12/04/20 18:48 shellfish derived AdvReac Unknown Unknown Verified 12/04/20 18:48 Calcium Channel Blocking AdvReac Edema Verified 12/04/20 18:48 Agents-Dih - Social History Does the pt smoke?: No Smoking Status: Never smoker Does the pt drink ETOH?: No Does the pt have substance abuse?: No - Immunizations Immunizations are current?: Yes - POLST Patient has POLST: No POLST Status: Full Code PD ED PE NORMAL - Vitals Vital signs reviewed: Yes - General General: Alert and oriented X 3, No acute distress, Well developed/nourished - HEENT HEENT: PERRL, EOMI, Pharynx benign - Neck Neck: Supple, no meningeal sign, No adenopathy - Cardiac Cardiac: No murmur. No: RRR (irregular but rate controlled. ) - Derm Derm: Normal color, Warm and dry - Neuro Neuro: Alert and oriented X 3, No motor deficit, No sensory deficit, Normal speech Results - Vitals Vitals: Oxygen O2 Source [With Activity] Nasal cannula O2 Source [Without Activity] Room air O2 Source Room air - EKG (time done) 19:09 Rate: Rate (enter#) (87) Rhythm: Atrial fibrillation Ischemia: Normal ST segments. No: ST elevation c/w ischemia, ST depression Compare to prior EKG: Unchanged from prior EKG (May 2020) - Labs Labs: Laboratory Tests 12/04/20 12/04/20 18:46 18:46 WBC 8.1 RBC 4.46 Hgb 12.4 Hct 40.1 MCV 89.9 MCH 27.8 MCHC 30.9 L RDW 16.7 H Plt Count 228 MPV 9.9 Neut # (Auto) 5.8 Lymph # (Auto) 1.0 L [place] # (Auto) 0.6 Eos # (Auto) 0.7 Baso # (Auto) 0.0 Absolute Nucleated RBC 0.00 Nucleated RBC % 0.0 Sodium 139 Potassium 3.1 L Chloride 91 L Carbon Dioxide 35 H Anion Gap 13.0 BUN 28 H Creatinine 1.3 H Estimated GFR (MDRD) 39 L Glucose 165 H Calcium 9.7 Magnesium 1.3 L Total Bilirubin 1.4 H AST 17 ALT 14 Alkaline Phosphatase 96 Total Protein 7.6 Albumin 3.7 Globulin 3.9 Albumin/Globulin Ratio 0.9 L Lipase 25 - Rads (name of study) right knee Radiology: Prelim report reviewed, See rad report (no fractures) head CT Radiology: Prelim report reviewed (no acute injury/bleeding.), See rad report PD MEDICAL DECISION MAKING - ED course Complexity details: reviewed results, considered differential (She had fallen to her knees and did not strike her head but has been a bit confused and some headache. On Eliquis. Got a CT scan that was okay. Blood test shows some mild low magnesium and potassium and.), d/w patient Departure - Departure Disposition: 01 Home, Self Care Clinical Impression: Light-headed feeling, Fall, Knee contusion, Hypokalemia, Hypomagnesemia Condition: Stable Record reviewed to determine appropriate education?: Yes Follow-Up: Elijah Gee MD [Primary Care Provider] - Prescriptions: Magnesium Oxide [Mag Ox] 400 mg PO DAILY #10 tablet Potassium Chloride [Micro-K] 10 meq PO BIDWM 10 Days #20 Comments: Your blood test show a low potassium and magnesium. I would suggest supplements for both of those over the next 10 days or so. Looks like you might be on a potassium supplement already. If so just increase it over the next 10 days to 3 times a day from twice a day. If you are not on one, then add it. You do take a medicine for your bladder it looks (Terazosin). It is listed as twice a day on your pharmacy list. I would drop that to once a day as it can have a effect on causing lightheadedness, some of the symptoms you have been having. I would also suggest holding your furosemide (Lasix) for 2 days as this likely had promoted the lowering of your potassium and magnesium. Resume the Lasix after 2 days. I would also suggest decreasing your losartan which we have listed as 100 mg. Decrease it to 50 mg for the next 5 or 6 days. So cut the tablet in half. I know this is several adjustments to your medicine. However some of them are just short-term with the potassium magnesium and holding Lasix. I would see how you feel with the combination of adjustments. Contact your primary care for follow-up for the end of the week to see how you are feeling with all this. Hopefully you will be having less lightheadedness and such. Your head CT scan does not show any signs of bleeding or swelling. Your x-ray of the knee does not have any fractures. Discharge Date/Time: 12/04/20 22:14
[2020-12-04 19:13] LABS: BASOPHILS % (AUTO) 0.5 %; EOSINOPHILS # (AUTO) 0.7 10^3/uL (0.0-0.7); EOSINOPHILS % (AUTO) 8.8 %; HCT - HEMATOCRIT 40.1 % (37.0-47.0); HGB - HEMOGLOBIN 12.4 g/dL (12.0-16.0); LYMPHOCYTES % (AUTO) 12.1 %; MEAN CORPUSCULAR HEMOGLOBIN 27.8 pg (27.0-31.0); MEAN CORPUSCULAR HGB CONC 30.9 g/dL (32.0-36.0); MEAN CORPUSCULAR VOLUME 89.9 fL (81.0-99.0); MEAN PLATELET VOLUME 9.9 fL (7.9-10.8); MONOCYTES # (AUTO) 0.6 10^3/uL (0.0-1.0); MONOCYTES % (AUTO) 6.9 %; NEUTROPHILS # (AUTO) 5.8 10^3/uL (1.5-6.6); NEUTROPHILS % (AUTO) 71.2 %; PLT - PLATELET COUNT 228 10^3/uL (130-450); RED BLOOD COUNT 4.46 10^6/uL (4.20-5.40); RED CELL DISTRIBUTION WIDTH 16.7 % (12.0-15.0); WHITE BLOOD COUNT 8.1 x10^3/uL (4.8-10.8)
[2020-12-04 19:22] LABS: ALBUMIN 3.7 g/dL (3.2-5.5); ALBUMIN/GLOBULIN RATIO 0.9 (1.0-2.2); BILIRUBIN,TOTAL 1.4 mg/dL (0.2-1.0); CALCIUM 9.7 mg/dL (8.5-10.3); CREATININE 1.3 mg/dL (0.4-1.0); MAGNESIUM 1.3 mg/dL (1.7-2.8); POTASSIUM 3.1 mmol/L (3.5-5.0); TOTAL PROTEIN 7.6 g/dL (6.7-8.2)
[2020-12-04] MEDS ORDERED: POTASSIUM CHLOR 10 MEQ/100 ML 10 MEQ/100 ML BAG IV STA (19:44)
[2020-12-04] MEDS ORDERED: ONDANSETRON 4 MG/2 ML VIAL IVP STA (19:44)
[2020-12-04] MEDS ORDERED: MAGNESIUM SULFATE 2 GRAM 2 GM/50 ML BAG IV ONE (19:44)
[2020-12-04] MEDS ORDERED: SODIUM CHLORIDE 0.9% 1,000 ML IV STA (19:45)
--- NOTE | 2020-12-04 19:47 | CT Report ---
PROCEDURE: HEAD WO INDICATIONS: fall, on Eliquis; did not strike head direct TECHNIQUE: Noncontrast 4.5 mm thick angled axial sections acquired from the foramen magnum to the vertex. For r adiation dose reduction, the following was used: automated exposure control, adjustment of mA and/or kV according to patient size. COMPARISON: Head CT 06/21/2020. FINDINGS: Image quality: Excellent. CSF spaces: Basal cisterns are patent. No extra-axial fluid collections. Ventricles are normal in size and shape and unchanged. Brain: No midline shift. No intracranial masses or hemorrhage. Encephalomalacia in the right fronta l lobe is similar the prior exam and due to prior infarct. Periventricular hypodensity consistent wit h chronic microvascular ischemic disease. Vascular calcifications right V4 and terminal ICA. Age rela lynda parenchymal loss. Skull and face: Calvarium and visualized facial bones are intact, without suspicious lesions. Sinuses: Mucosal thickening in the maxillary sinuses, right greater than left. IMPRESSION: No acute intracranial abnormality. Similar prior right frontal infarct. Chronic microvascular ischemic disease. Maxillary sinusitis. Reviewed by: Samir Del Angel MD on 12/04/2020 7:45 PM PDT Approved by: Samir Del Angel MD on 12/04/2020 7:45 PM PDT Station ID: [id number]
--- NOTE | 2020-12-04 20:00 | XRAY Report ---
PROCEDURE: Knee 3 View RT INDICATIONS: fall, landed right knee TECHNIQUE: 3 views of the right knee(s) were acquired. COMPARISON: None. FINDINGS: Bones: No fractures or dislocations. Prominent patellar enthesophytes. Prominent tibial tuberosity. No suspicious bony lesions. Soft tissues: No joint effusion. No suspicious soft tissue calcifications. Vascular calcifications. IMPRESSION: No acute osseous abnormality. Reviewed by: Samir Del Angel MD on 12/04/2020 7:58 PM PDT Approved by: Samir Del Angel MD on 12/04/2020 7:58 PM PDT Station ID: [id number]
[2020-12-04 22:14] VITALS: BP 140/60
== END 2020-12-04 22:14 | disposition home or self-care (01) ==
LOC: EDUNIT# → ED 18:41
DX: S89.91XA Unspecified injury of right lower leg, initial encounter (principal); W01.0XXA Fall on same level from slipping, tripping and stumbling without subsequent striking against object, initial encounter; Y92.009 Unspecified place in unspecified non-institutional (private) residence as the place of occurrence of the external cause; E87.6 Hypokalemia; E83.42 Hypomagnesemia; E11.9 Type 2 diabetes mellitus without complications; Z79.84 Long term (current) use of oral hypoglycemic drugs; I10 Essential (primary) hypertension; I73.9 Peripheral vascular disease, unspecified; Z79.01 Long term (current) use of anticoagulants
CPT/HCPCS: 36415; 80053; 83690; 83735; 85025; 93005; 96365; 96367; 96375; 99284

== ENCOUNTER 2020-12-10 15:26 | Outpatient (CLI) | payer MEDICARE, OTHER ==
--- NOTE | 2020-12-11 08:49 | XRAY Report ---
PROCEDURE: Shoulder 3 View RT INDICATIONS: CONTUSION OF R SHOULDER TECHNIQUE: Views of the shoulder were acquired. COMPARISON: None. FINDINGS: Bones: The right shoulder has no fracture or dislocation. There are degenerative changes of the acro mioclavicular joint and the glenohumeral joint. The glenohumeral joint has a osteophyte extending fro m the inferior articular surface. There is joint space narrowing of the glenohumeral joint. Soft tissues: No suspicious soft tissue calcifications. IMPRESSION: No acute abnormality of the right shoulder. Reviewed by: Aleksander Louise on 12/11/2020 8:48 AM PDT Approved by: Aleksander Louise on 12/11/2020 8:48 AM PDT Station ID: [id number]
== END 2020-12-10 23:59 | disposition home or self-care (01) ==
LOC: DI.N 15:26
PROVIDERS: ATTEND Physician Assistant Medical
DX: S40.011A Contusion of right shoulder, initial encounter (principal)

== ENCOUNTER 2021-02-11 10:30 | Outpatient (CLI) | payer MEDICARE, OTHER ==
[2021-02-11 14:08] LABS: ESTIMATED AVERAGE GLUCOSE 123 mg/dL (70-100); HEMOGLOBIN A1c% 5.9 % (4.27-6.07)
== END 2021-02-11 10:31 | disposition home or self-care (01) ==
LOC: LAB.N 10:30
PROVIDERS: ATTEND Family Medicine
DX: I27.20 Pulmonary hypertension, unspecified (principal); E87.70 Fluid overload, unspecified; Q21.1 Atrial septal defect; I48.0 Paroxysmal atrial fibrillation; E11.9 Type 2 diabetes mellitus without complications
CPT/HCPCS: 36415; 83036; 83880; 85027

== ENCOUNTER 2021-03-08 11:17 | Outpatient (CLI) | payer MEDICARE, OTHER | END 2021-03-08 11:18 | disposition critical access hospital (66) | LOC: EMS 11:17 | DX: S00.12XA Contusion of left eyelid and periocular area, initial encounter (principal); W18.39XA Other fall on same level, initial encounter; Z91.81 History of falling; Y93.89 Activity, other specified; Y92.009 Unspecified place in unspecified non-institutional (private) residence as the place of occurrence of the external cause | CPT/HCPCS: A0425; A0429 ==

== ENCOUNTER 2021-03-08 11:37 | Emergency (ER) | payer MEDICARE, OTHER ==
[2021-03-08] MEDS ORDERED: SODIUM CHLORIDE 0.9% 1,000 ML IV STA (12:00)
--- NOTE | 2021-03-08 12:02 | ED Physician Documentation ---
PD HPI HEAD INJURY - Stated complaint Stated Complaint: GLF - Chief complaint Chief Complaint: Trauma Hd/Nk - History obtained from History obtained from: Patient, Family, EMS - History of Present Illness Mechanism of head injury: Fell Where head injury occurred: Home Timing - onset: Today Location of injury: Left, Front Quality of pain: Pain Associated symptoms: Neck pain. No: LOC, AMS, Amnesia, Nausea / vomiting, Paresthesias, Seizures, Ear drainage, Nasal drainage Symptoms improve with: Rest Symptoms worsen with: Palpation, Movement Contributing factors: Anticoagulated Similar symptoms before: Diagnosis (dehydration and UTI with falls) Recently seen: Clinic - Additional information Additional information: 80-year-old female who has a problem with fluid retention and is on a diuretic has developed some lightheaded dizziness and she has had 2 falls in this week. She fell this morning injuring the left side of her forehead with a hematoma and the couple debated coming to the emergency department as the patient felt otherwise asymptomatic. She does state that she has some stiffness to her neck. She has a significant hematoma over the left eyebrow. She has had issues with falls previously related to her use of diuretic and dehydration. She has had urinary tract infection as well previously. She does indicate that she has been urinating more frequently than normal. The patient indicates that she did have some swelling to her lower extremities and this has improved with use of the diuretic. She believes she is on furosemide Review of Systems Constitutional: denies: Fever Eyes: denies: Decreased vision Ears: denies: Ear pain Nose: denies: Congestion Throat: denies: Sore throat Cardiac: denies: Chest pain / pressure Respiratory: denies: Dyspnea, Cough GI: denies: Abdominal Pain, Nausea, Vomiting : reports: Frequency. denies: Dysuria Skin: denies: Rash Musculoskeletal: reports: Neck pain. 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 : 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 HEENT: None Psych: None Musculoskeletal: Osteoarthritis Derm: None - Past Surgical History Past Surgical History: Yes General: Colonoscopy, EGD Ortho: Hip replacement, Spine surgery /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: Hysterectomy, Other HEENT: Cataracts - Present Medications Home Medications: Ambulatory Orders Medication Instructions Recorded Confirmed Terazosin [Hytrin] 5 mg PO BID 08/11/12 07/31/20 Multivitamin [Multivitamins] 1 each PO DAILY 10/06/12 07/31/20 Potassium Chloride [Micro-K] 20 meq PO BIDWM 10/06/12 07/31/20 Oxybutynin Chloride [Ditropan Xl] 15 mg PO DAILY PM 10/23/17 07/31/20 Apixaban [Eliquis] 5 mg BID 02/22/19 07/31/20 metFORMIN [Glucophage] 250 mg PO BID 02/22/19 07/31/20 Furosemide [Lasix] 40 mg PO DAILY #10 tablet 07/02/19 07/31/20 Ferrous Gluconate [Iron] 240 mg PO DAILY 11/24/19 07/31/20 Atorvastatin [Lipitor] 20 mg PO DAILY PM 06/20/20 07/31/20 Carvedilol [Coreg] 25 mg PO BID 06/20/20 07/31/20 Levothyroxine Sodium [Synthroid] 175 mcg PO QDAC 06/20/20 07/31/20 Losartan Potassium [Cozaar] 100 mg PO DAILY PM 06/20/20 07/31/20 Amox/Clav 875/125 [Augmentin] 1 each PO Q12H #14 tablet 06/22/20 07/31/20 Magnesium Oxide [Mag Ox] 400 mg PO DAILY #10 tablet 12/04/20 Potassium Chloride [Micro-K] 10 meq PO BIDWM 10 Days #20 12/04/20 - Allergies Allergies/Adverse Reactions: Allergies Allergy/AdvReac Type Severity Reaction Status Date / Time codeine [Codeine] Allergy Unknown Rash Verified 03/08/21 11:41 GLORIA Inhibitors Allergy Unknown Verified 03/08/21 11:41 iodine Allergy Unknown Verified 03/08/21 11:41 tramadol Allergy Unknown Verified 03/08/21 11:41 shellfish derived AdvReac Unknown Unknown Verified 03/08/21 11:41 Calcium Channel Blocking AdvReac Edema Verified 03/08/21 11:41 Agents-Dih - Social History Does the pt smoke?: No Smoking Status: Never smoker Does the pt drink ETOH?: No Does the pt have substance abuse?: No - Immunizations Immunizations are current?: Yes - POLST Patient has POLST: No POLST Status: Full Code PD ED PE NORMAL - Vitals Vital signs reviewed: Yes (Hypertensive) - General General: Alert and oriented X 3, No acute distress, Well developed/nourished - HEENT HEENT: PERRL, EOMI, Other (There is a hematoma to the left eyebrow without significant point tenderness to the surrounding tissues of the orbit.) - Neck Neck: Supple, no meningeal sign, No bony TTP - Cardiac Cardiac: RRR, No murmur - Respiratory Respiratory: No respiratory distress, Clear bilaterally - Abdomen Abdomen: Normal bowel sounds, Soft, Non tender, Non distended, No organomegaly - Back Back: No CVA TTP, No spinal TTP - Derm Derm: Normal color, Warm and dry, No rash - Extremities Extremities: No deformity, No edema - Neuro Neuro: Alert and oriented X 3, principal programmer 2-12 intact, No motor deficit, No sensory deficit, Normal speech Eye Opening: Spontaneous Motor: Obeys Commands Verbal: Oriented GCS Score: 15 - Psych Psych: Normal mood, Normal affect Results - Vitals Vitals: Vital Signs - 24 hr 03/08/21 03/08/21 03/08/21 11:41 12:18 12:30 Temperature 36.2 C L Heart Rate 53 L 85 89 Respiratory 19 14 12 Rate Blood Pressure 151/65 H 151/75 H 130/73 O2 Saturation 98 100 100 03/08/21 03/08/21 03/08/21 13:00 13:30 14:00 Temperature Heart Rate 85 94 93 Respiratory 16 17 16 Rate Blood Pressure 148/75 H 103/82 H O2 Saturation 99 100 100 Oxygen O2 Source [] Nasal cannula O2 Source [] Room air O2 Source Room air - Labs Labs: Laboratory Tests 03/08/21 03/08/21 03/08/21 11:56 11:56 13:17 WBC 6.0 RBC 4.08 L Hgb 12.3 Hct 38.4 MCV 94.1 MCH 30.1 MCHC 32.0 RDW 13.1 Plt Count 143 MPV 11.7 H Neut # (Auto) 4.5 Lymph # (Auto) 0.8 L [place] # (Auto) 0.6 Eos # (Auto) 0.1 Baso # (Auto) 0.0 Absolute Nucleated RBC 0.00 Nucleated RBC % 0.0 Sodium 139 Potassium 4.1 Chloride 95 L Carbon Dioxide 32 Anion Gap 12.0 BUN 47 H Creatinine 1.6 H Estimated GFR (MDRD) 31 L Glucose 205 H Calcium 9.9 Total Bilirubin 1.3 H AST 21 ALT 18 Alkaline Phosphatase 102 Total Protein 8.2 Albumin 3.7 Globulin 4.5 H Albumin/Globulin Ratio 0.8 L Lipase 50 Urine Color YELLOW Urine Clarity CLEAR Urine pH 6.5 Ur Specific [place] 1.010 Urine Protein NEGATIVE Urine Glucose (UA) NEGATIVE Urine Ketones NEGATIVE Urine Occult Blood NEGATIVE Urine Nitrite NEGATIVE Urine Bilirubin NEGATIVE Urine Urobilinogen 0.2 (NORMAL) Ur Leukocyte Esterase NEGATIVE Ur Microscopic Review NOT INDICATED Urine Culture Comments NOT INDICATED - Rads (name of study) CT cervical spine Radiology: Prelim report reviewed (Impression: No fracture. No osseous lesion.), EMP read indepedently (a lot of arthritis in the neck), See rad report CT head without Radiology: Prelim report reviewed (Impression: No acute intracranial disease process.), EMP read indepedently, See rad report Procedures - IVC sono (time) 1155 Bedside IVC sono: IVC measures (cm) (0.91), IVC collapsed c insp (cm) (complete), Dehydration (est 1-2 liter deficit) PD MEDICAL DECISION MAKING - ED course Complexity details: reviewed old records, reviewed results, re-evaluated patient, considered differential, d/w patient, d/w family (reviewed with dry weight and use of furosimide written in instructions. ) ED course: 80-year-old female with a fall at home is on Lasix she is dehydrated on interrogation the inferior vena cava and on her laboratory work she has evidence of acute kidney injury. She has had similar presentations previously with overexuberant use of diuretic. Today she has no injury to her head or neck. She is administered intravenous fluid and we are awaiting a urine specimen Departure - Departure Disposition: 01 Home, Self Care Clinical Impression: Dehydration determined by examination, Hematoma and contusion Concussion Qualifiers: Encounter type: initial encounter Loss of consciousness presence/duration: without LOC Qualified Code(s): S06.0X0A - Concussion without loss of consciousn ess, initial encounter Condition: Stable Instructions: ED Concussion, ED Dehydration Follow-Up: Elijah Gee MD [Primary Care Provider] - Comments: Gina, today you were found to be dehydrated again. You are on furosemide and today it looks like you are at your dry weight. When you arrive back home weigh yourself. Stop your furosemide. If you gain more than 4 pounds in a day restart the furosemide. If you get down to the dry weight stop the furosemide.
[2021-03-08 12:11] LABS: BASOPHILS % (AUTO) 0.3 %; EOSINOPHILS # (AUTO) 0.1 10^3/uL (0.0-0.7); EOSINOPHILS % (AUTO) 1.7 %; HCT - HEMATOCRIT 38.4 % (37.0-47.0); HGB - HEMOGLOBIN 12.3 g/dL (12.0-16.0); LYMPHOCYTES # (AUTO) 0.8 10^3/uL (1.5-3.5); MEAN CORPUSCULAR HEMOGLOBIN 30.1 pg (27.0-31.0); MEAN CORPUSCULAR VOLUME 94.1 fL (81.0-99.0); MEAN PLATELET VOLUME 11.7 fL (7.9-10.8); MONOCYTES # (AUTO) 0.6 10^3/uL (0.0-1.0); MONOCYTES % (AUTO) 9.3 %; NEUTROPHILS # (AUTO) 4.5 10^3/uL (1.5-6.6); NEUTROPHILS % (AUTO) 75.4 %; PLT - PLATELET COUNT 143 10^3/uL (130-450); RED BLOOD COUNT 4.08 10^6/uL (4.20-5.40); RED CELL DISTRIBUTION WIDTH 13.1 % (12.0-15.0)
[2021-03-08 12:20] LABS: ALBUMIN 3.7 g/dL (3.2-5.5); ALBUMIN/GLOBULIN RATIO 0.8 (1.0-2.2); BILIRUBIN,TOTAL 1.3 mg/dL (0.2-1.0); CALCIUM 9.9 mg/dL (8.5-10.3); CREATININE 1.6 mg/dL (0.4-1.0); POTASSIUM 4.1 mmol/L (3.5-5.0); TOTAL PROTEIN 8.2 g/dL (6.7-8.2)
--- NOTE | 2021-03-08 12:28 | CT Report ---
PROCEDURE: HEAD WO INDICATIONS: polytrauma, head and TECHNIQUE: Noncontrast 4.5 mm thick angled axial sections acquired from the foramen magnum to the vertex. For r adiation dose reduction, the following was used: automated exposure control, adjustment of mA and/or kV according to patient size. COMPARISON: 12/04/2020 FINDINGS: Image quality: Excellent. CSF spaces: Basal cisterns are patent. No extra-axial fluid collections. The ventricles are symmet sylvia in size and shape. Brain: No intracranial bleeds or masses. Small chronic right frontal infarct is stable compared to t he prior exam. There is cerebral volume loss for age, with resultant ventricular and sulcal prominenc e. There are periventricular and deep white matter chronic small vessel ischemic changes. There is intracranial internal carotid artery and vertebral artery atherosclerosis. Skull and face: Calvarium and visualized facial bones appear intact, without suspicious lesions. Lef t periorbital soft tissue/left frontal scalp image. Sinuses: Visualized sinuses and mastoids are clear. IMPRESSION: No acute intracranial disease process. Reviewed by: Lani Bergeron MD, PhD on 03/08/2021 12:27 PM PST Approved by: Lani Bergeron MD, PhD on 03/08/2021 12:27 PM PST Station ID: [id number]
--- NOTE | 2021-03-08 12:34 | CT Report ---
PROCEDURE: CERVICAL SPINE WO INDICATIONS: polytrauama TECHNIQUE: Noncontrast 3 mm thick sections acquired from the skull base to the T4 level. Sagittal and coronal r eformats were then constructed. For radiation dose reduction, the following was used: automated exp osure control, adjustment of mA and/or kV according to patient size. COMPARISON: 06/21/2020. FINDINGS: Image quality: Excellent. Bones: No fractures or dislocations. Visualized superior ribs are intact. Spine degenerative disc d isease and facet arthropathy are noted. 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 Severe bilateral C5-C6 neural foraminal narrowing with compression of the exi ting C6 nerve roots is stable. Soft tissues: Prevertebral soft tissues are normal in thickness. No paravertebral hematomas. No ap ical pneumothoraces. IMPRESSION: No fracture. No acute osseous lesion. If there is continued clinical concern for pathology, then MRI should be considered for further evaluation. Reviewed by: Lani Bergeron MD, PhD on 03/08/2021 12:32 PM PST Approved by: Lani Bergeron MD, PhD on 03/08/2021 12:32 PM PST Station ID: [id number]
[2021-03-08 13:29] LABS: BILIRUBIN,URINE NEGATIVE (NEGATIVE); GLUCOSE, URINE (UA) NEGATIVE (NEGATIVE); KETONES,URINE (UA) NEGATIVE (NEGATIVE); LEUKOCYTE ESTERASE, URINE NEGATIVE (NEGATIVE); NITRITE,URINE NEGATIVE (NEGATIVE); OCCULT BLOOD,URINE NEGATIVE (NEGATIVE); PH,URINE 6.5 PH (5.0-7.5); PROTEIN,URINE NEGATIVE (NEGATIVE); UROBILINOGEN,URINE 0.2 (NORMAL) E.U./dL (NORMAL)
[2021-03-08 13:40] LABS: CLARITY,URINE CLEAR (CLEAR)
[2021-03-08 14:37] VITALS: BP 105/80
== END 2021-03-08 14:37 | disposition home or self-care (01) ==
LOC: ED 11:37
DX: S06.0X0A Concussion without loss of consciousness, initial encounter (principal); W19.XXXA Unspecified fall, initial encounter; Y92.009 Unspecified place in unspecified non-institutional (private) residence as the place of occurrence of the external cause; Z91.81 History of falling; E86.0 Dehydration; M54.2 Cervicalgia; E11.9 Type 2 diabetes mellitus without complications; Z79.84 Long term (current) use of oral hypoglycemic drugs; I10 Essential (primary) hypertension; I73.9 Peripheral vascular disease, unspecified; Z79.01 Long term (current) use of anticoagulants; F03.90 Unspecified dementia, unspecified severity, without behavioral disturbance, psychotic disturbance, mood disturbance, and anxiety
CPT/HCPCS: 36415; 80053; 81001; 81003; 83690; 85025; 87086; 96360; 99282

== ENCOUNTER 2021-06-27 08:00 | Outpatient (CLI) | payer MEDICARE, OTHER | END 2021-06-27 23:59 | LOC: LAB.WCP 08:00 | PROVIDERS: ATTEND Nurse Practitioner Family | DX: R05.1 Acute cough (principal); Z20.822 Contact with and (suspected) exposure to COVID-19 ==

== ENCOUNTER 2021-06-28 16:05 | Outpatient (CLI) | payer MEDICARE, OTHER ==
--- NOTE | 2021-06-28 16:37 | XRAY Report ---
PROCEDURE: Chest 2 View X-Ray INDICATIONS: DECREASED BREATH SOUNDS, LOWER RIGHT LOBE TECHNIQUE: 2 view(s) of the chest. COMPARISON: 06/21/2020 and 06/19/2020. FINDINGS: Surgical changes and devices: Numerous surgical clips are seen projecting in the region of left breas t and left axilla. Lungs and pleura: Small to moderate right pleural effusion with right middle and lower lobe atelectas is is seen. Mild pulmonary vascular congestion is also noted. Trace left pleural effusion is likely p resent. No gross pneumothorax. Mediastinum: Mediastinal contours are normal. Heart size is enlarged. Bones and chest wall: No suspicious bony abnormalities. Soft tissues appear unremarkable. IMPRESSION: Interval increase in amount of right-sided pleural effusion with worsening of right midd le and lower lobe atelectasis/infiltrates. Trace left pleural effusion. Mild pulmonary vascular conge stion. No gross pneumothorax. Reviewed by: Navid Judd MD on 06/28/2021 4:36 PM PDT Approved by: Navid Judd MD on 06/28/2021 4:36 PM PDT Station ID: [id number]
== END 2021-06-28 16:06 | disposition home or self-care (01) ==
LOC: DI.N 16:05
PROVIDERS: ATTEND Nurse Practitioner Family
DX: J90 Pleural effusion, not elsewhere classified (principal); J98.11 Atelectasis; R09.89 Other specified symptoms and signs involving the circulatory and respiratory systems; E87.6 Hypokalemia; I27.20 Pulmonary hypertension, unspecified; R06.02 Shortness of breath; Q21.1 Atrial septal defect; I50.22 Chronic systolic (congestive) heart failure; I48.0 Paroxysmal atrial fibrillation; E79.0 Hyperuricemia without signs of inflammatory arthritis and tophaceous disease; I11.0 Hypertensive heart disease with heart failure; I50.20 Unspecified systolic (congestive) heart failure
CPT/HCPCS: 36415; 80053; 84443; 85025

== ENCOUNTER 2021-06-28 16:14 | Outpatient (CLI) | payer MEDICARE, OTHER ==
[2021-06-28 21:05] LABS: BASOPHILS % (AUTO) 0.7 %; EOSINOPHILS # (AUTO) 0.1 10^3/uL (0.0-0.7); EOSINOPHILS % (AUTO) 1.9 %; HCT - HEMATOCRIT 37.5 % (37.0-47.0); HGB - HEMOGLOBIN 11.2 g/dL (12.0-16.0); LYMPHOCYTES % (AUTO) 17.4 %; MEAN CORPUSCULAR HEMOGLOBIN 27.2 pg (27.0-31.0); MEAN CORPUSCULAR HGB CONC 29.9 g/dL (32.0-36.0); MEAN PLATELET VOLUME 11.3 fL (7.9-10.8); MONOCYTES # (AUTO) 0.4 10^3/uL (0.0-1.0); MONOCYTES % (AUTO) 7.6 %; NEUTROPHILS # (AUTO) 4.1 10^3/uL (1.5-6.6); NEUTROPHILS % (AUTO) 72.2 %; PLT - PLATELET COUNT 232 10^3/uL (130-450); RED BLOOD COUNT 4.12 10^6/uL (4.20-5.40); RED CELL DISTRIBUTION WIDTH 16.7 % (12.0-15.0); WHITE BLOOD COUNT 5.7 x10^3/uL (4.8-10.8)
[2021-06-28 21:16] LABS: ALBUMIN 3.6 g/dL (3.2-5.5); BILIRUBIN,TOTAL 0.9 mg/dL (0.2-1.0); CALCIUM 9.2 mg/dL (8.5-10.3); POTASSIUM 4.4 mmol/L (3.5-5.0); TOTAL PROTEIN 7.2 g/dL (6.7-8.2)
[2021-06-28 21:34] LABS: THYROID STIMULATING HORMONE 1.96 uIU/mL (0.34-5.60)
== END 2021-06-28 16:15 | disposition home or self-care (01) ==
LOC: LAB.N 16:14
PROVIDERS: ATTEND Family Medicine
DX: E87.6 Hypokalemia (principal); I27.20 Pulmonary hypertension, unspecified; R06.02 Shortness of breath; Q21.1 Atrial septal defect; I11.0 Hypertensive heart disease with heart failure; I50.22 Chronic systolic (congestive) heart failure; I48.0 Paroxysmal atrial fibrillation; E79.0 Hyperuricemia without signs of inflammatory arthritis and tophaceous disease
CPT/HCPCS: 36415; 80053; 84443; 85025

== ENCOUNTER 2021-07-25 13:59 | Emergency (ER) | payer MEDICARE, OTHER ==
[2021-07-25 14:28] VITALS: BP 154/93
--- NOTE | 2021-07-25 15:08 | CT Report ---
PROCEDURE: CERVICAL SPINE WO INDICATIONS: fall, neck pain TECHNIQUE: Noncontrast 3 mm thick sections acquired from the skull base to the T4 level. Sagittal and coronal r eformats were then constructed. For radiation dose reduction, the following was used: automated exp osure control, adjustment of mA and/or kV according to patient size. COMPARISON: 03/08/2021. FINDINGS: Image quality: Excellent. Bones: No fractures or dislocations. There is straightening of normal cervical lordosis. Degenerati ve endplate changes throughout cervical spine is seen more prominent at C5-6 and C6-7 levels. Visuali zed superior ribs are intact. Soft tissues: Prevertebral soft tissues are normal in thickness. No paravertebral hematomas. No ap ical pneumothoraces. Small bilateral pleural effusion is seen. IMPRESSION: 1. No acute cervical spine fracture or dislocation. 2. Degenerative disc disease throughout cervical spine. 3. Bilateral pleural effusion. No pneumothorax. Reviewed by: Navid Judd MD on 07/25/2021 3:07 PM PDT Approved by: Navid Judd MD on 07/25/2021 3:07 PM PDT Station ID: [id number]
--- NOTE | 2021-07-25 15:10 | CT Report ---
PROCEDURE: HEAD WO INDICATIONS: fall, head injury TECHNIQUE: Noncontrast 4.5 mm thick angled axial sections acquired from the foramen magnum to the vertex. For r adiation dose reduction, the following was used: automated exposure control, adjustment of mA and/or kV according to patient size. COMPARISON: 03/08/2021 FINDINGS: Image quality: Excellent. CSF spaces: Basal cisterns are patent. No extra-axial fluid collections. The ventricles are symmet sylvia in size and shape. Brain: No intracranial bleeds or masses. There is cerebral volume loss for age, with resultant vent ricular and sulcal prominence. There are periventricular and deep white matter chronic small vessel ischemic changes. There is intracranial internal carotid artery atherosclerosis. Skull and face: Frontal scalp swelling and hematoma is seen. No acute skull fracture. No gross acute facial bone fracture. Sinuses: Visualized sinuses and mastoids are clear. IMPRESSION: 1. No CT evidence of acute intracranial abnormalities. 2. Frontal scalp hematoma and swelling. No acute skull fracture or facial bone fracture. Reviewed by: Navid Judd MD on 07/25/2021 3:08 PM PDT Approved by: Navid Judd MD on 07/25/2021 3:08 PM PDT Station ID: [id number]
--- NOTE | 2021-07-25 15:45 | ED Physician Documentation ---
History of Present Illness - Stated complaint Stated Complaint: FALL - Chief complaint Chief Complaint: Trauma Hd/Nk - History obtained from History obtained from: Patient - History of Present Illness Timing: Yesterday Pain level max: 4 Pain level now: 2 - Additonal information Additional information: Patient is an 81-year-old female who tripped and fell on the ground yesterday. She states that she noted bruising to the eyes and nose today. Has mild head and neck pain. Worse with movement, better with rest. Denies any blood thinner usage. No loss of consciousness. No seizure activity. 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 : 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 HEENT: None Psych: None Musculoskeletal: Osteoarthritis Derm: None - Past Surgical History Past Surgical History: Yes General: Colonoscopy, EGD Ortho: Hip replacement, Spine surgery /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 INSTRUCTOR: Hysterectomy, Other HEENT: Cataracts - Present Medications Home Medications: Ambulatory Orders Medication Instructions Recorded Confirmed Terazosin [Hytrin] 5 mg PO BID 08/11/12 07/31/20 Multivitamin [Multivitamins] 1 each PO DAILY 10/06/12 07/31/20 Potassium Chloride [Micro-K] 20 meq PO BIDWM 10/06/12 07/31/20 Oxybutynin Chloride [Ditropan Xl] 15 mg PO DAILY PM 10/23/17 07/31/20 Apixaban [Eliquis] 5 mg BID 02/22/19 07/31/20 metFORMIN [Glucophage] 250 mg PO BID 02/22/19 07/31/20 Furosemide [Lasix] 40 mg PO DAILY #10 tablet 07/02/19 07/31/20 Ferrous Gluconate [Iron] 240 mg PO DAILY 11/24/19 07/31/20 Atorvastatin [Lipitor] 20 mg PO DAILY PM 06/20/20 07/31/20 Carvedilol [Coreg] 25 mg PO BID 06/20/20 07/31/20 Levothyroxine Sodium [Synthroid] 175 mcg PO QDAC 06/20/20 07/31/20 Losartan Potassium [Cozaar] 100 mg PO DAILY PM 06/20/20 07/31/20 Amox/Clav 875/125 [Augmentin] 1 each PO Q12H #14 tablet 06/22/20 07/31/20 Magnesium Oxide [Mag Ox] 400 mg PO DAILY #10 tablet 12/04/20 Potassium Chloride [Micro-K] 10 meq PO BIDWM 10 Days #20 12/04/20 - Allergies Allergies/Adverse Reactions: Allergies Allergy/AdvReac Type Severity Reaction Status Date / Time codeine [Codeine] Allergy Unknown Rash Verified 07/25/21 14:23 GLORIA Inhibitors Allergy Unknown Verified 07/25/21 14:23 iodine Allergy Unknown Verified 07/25/21 14:23 tramadol Allergy Unknown Verified 07/25/21 14:23 shellfish derived AdvReac Unknown Unknown Verified 07/25/21 14:23 Calcium Channel Blocking AdvReac Edema Verified 07/25/21 14:23 Agents-Dih - Social History Does the pt smoke?: No Smoking Status: Never smoker Does the pt drink ETOH?: No Does the pt have substance abuse?: No - Immunizations Immunizations are current?: Yes - POLST Patient has POLST: No POLST Status: Full Code PD ED PE NORMAL - Vitals Vital signs reviewed: Yes - General General: Alert and oriented X 3, No acute distress - HEENT HEENT: PERRL, EOMI, Ears normal, Other (Patient with bilateral periorbital bruising. Bruising across the bridge of the nose as well. Mild tenderness across the forehead. No other scalp hematomas.) - Neck Neck: Supple, no meningeal sign, Other (Mild mid C-spine tenderness to palpation. No step-off or deformity.) - Cardiac Cardiac: RRR, Strong equal pulses - Respiratory Respiratory: No respiratory distress, Clear bilaterally - Abdomen Abdomen: Soft, Non tender, Non distended - Back Back: No spinal TTP - Derm Derm: Warm and dry - Extremities Extremities: No edema - Neuro Neuro: Alert and oriented X 3, merchandising internship 2-12 intact, No motor deficit, No sensory deficit, Normal speech - Psych Psych: Normal mood, Normal affect Results - Vitals Vitals: Vital Signs - 24 hr 07/25/21 14:23 Temperature 36.5 C Heart Rate 90 Respiratory 16 Rate Blood Pressure 154/93 H O2 Saturation 97 Oxygen O2 Source [With Activity] Nasal cannula O2 Source [Without Activity] Room air O2 Source Room air - Rads (name of study) Head CT Radiology: Final report received, EMP read contemporaneously, See rad report (No acute abnormality) Cervical spine CT Radiology: Final report received, EMP read contemporaneously, See rad report (No acute abnormality) PD MEDICAL DECISION MAKING - ED course Complexity details: reviewed results, re-evaluated patient, considered differential, d/w patient ED course: Cervical collar was removed after the negative CT. Head CT is negative as well. No visible fractures. No intracranial bleeding. Patient is relatively asymptomatic other than the facial bruising. Not on blood thinners. Head injury instructions given at bedside. Patient counseled regarding signs and symptoms for which I believe and urgent re-evaluation would be necessary. Patient with good understanding of and agreement to plan and is comfortable going home at this time This document was made in part using voice recognition software. While efforts are made to proofread this document, sound alike and grammatical errors may occur. Departure - Departure Disposition: 01 Home, Self Care Clinical Impression: Facial contusion Qualifiers: Encounter type: initial encounter Qualified Code(s): S00.83XA - Contusion of other part of head, initial encounter Closed head injury Qualifiers: Encounter type: initial encounter Qualified Code(s): S09.90XA - Unspecified injury of head, initial encounter Fall Qualifiers: Encounter type: initial encounter Qualified Code(s): W19.XXXA - Unspecified fall, initial encounter Condition: Good Instructions: ED Head Injury Closed Follow-Up: Elijah Gee MD [Primary Care Provider] - Comments: Your CT scans did not show any acute fractures or bleeding today. Please follow-up with your doctor for further care. Return if you worsen. You can use Tylenol as needed at home for pain. Discharge Date/Time: 07/25/21 15:50
== END 2021-07-25 15:50 | disposition home or self-care (01) ==
LOC: ED 13:59
DX: S00.33XA Contusion of nose, initial encounter (principal); S00.12XA Contusion of left eyelid and periocular area, initial encounter; S00.11XA Contusion of right eyelid and periocular area, initial encounter; S09.90XA Unspecified injury of head, initial encounter; W01.10XA Fall on same level from slipping, tripping and stumbling with subsequent striking against unspecified object, initial encounter
CPT/HCPCS: 99282; 99284

== ENCOUNTER 2021-07-27 01:15 | Outpatient (CLI) | payer MEDICARE, OTHER | END 2021-07-27 01:16 | disposition left against medical advice (07) | LOC: EMS 01:15 | DX: R29.6 Repeated falls (principal); Z79.01 Long term (current) use of anticoagulants ==

== ENCOUNTER 2021-08-13 12:44 | Outpatient (CLI) | payer MEDICARE, OTHER | END 2021-08-13 12:45 | disposition EMS.NT | LOC: EMS 12:44 | DX: Z03.89 Encounter for observation for other suspected diseases and conditions ruled out (principal) ==

== ENCOUNTER 2021-08-23 12:06 | Outpatient (CLI) | payer MEDICARE, OTHER | END 2021-08-23 12:07 | disposition EMS.NT | LOC: EMS 12:06 | DX: Z03.89 Encounter for observation for other suspected diseases and conditions ruled out (principal) ==

== ENCOUNTER 2021-12-10 23:32 | Emergency (ER) | payer MEDICARE, OTHER ==
--- NOTE | 2021-12-11 00:01 | ED Physician Documentation ---
History of Present Illness - Stated complaint Stated Complaint: GLF - Chief complaint Chief Complaint: Trauma Hd/Nk - History obtained from History obtained from: Patient - Additonal information Additional information: 81-year-old woman On Eliquis presents status post fall while trying to get into her car this evening. Patient states that she normally is ambulatory with a walker but left it at home and was trying to get into her car and fell over. She complains of pain to her tailbone, left posterior rib cage, and states that she did bump her head but is experiencing no pain there. Denies other injury. 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 : 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 HEENT: None Psych: None Musculoskeletal: Osteoarthritis Derm: None - Past Surgical History Past Surgical History: Yes General: Colonoscopy, EGD Ortho: Hip replacement, 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, Other HEENT: Cataracts - Present Medications Home Medications: Ambulatory Orders Medication Instructions Recorded Confirmed Terazosin [Hytrin] 5 mg PO BID 08/11/12 07/31/20 Multivitamin [Multivitamins] 1 each PO DAILY 10/06/12 07/31/20 Potassium Chloride [Micro-K] 20 meq PO BIDWM 10/06/12 07/31/20 Oxybutynin Chloride [Ditropan Xl] 15 mg PO DAILY PM 10/23/17 07/31/20 Apixaban [Eliquis] 5 mg BID 02/22/19 07/31/20 metFORMIN [Glucophage] 250 mg PO BID 02/22/19 07/31/20 Furosemide [Lasix] 40 mg PO DAILY #10 tablet 07/02/19 07/31/20 Ferrous Gluconate [Iron] 240 mg PO DAILY 11/24/19 07/31/20 Atorvastatin [Lipitor] 20 mg PO DAILY PM 06/20/20 07/31/20 Carvedilol [Coreg] 25 mg PO BID 06/20/20 07/31/20 Levothyroxine Sodium [Synthroid] 175 mcg PO QDAC 06/20/20 07/31/20 Losartan Potassium [Cozaar] 100 mg PO DAILY PM 06/20/20 07/31/20 Amox/Clav 875/125 [Augmentin] 1 each PO Q12H #14 tablet 06/22/20 07/31/20 Magnesium Oxide [Mag Ox] 400 mg PO DAILY #10 tablet 12/04/20 Potassium Chloride [Micro-K] 10 meq PO BIDWM 10 Days #20 12/04/20 - Allergies Allergies/Adverse Reactions: Allergies Allergy/AdvReac Type Severity Reaction Status Date / Time codeine [Codeine] Allergy Unknown Rash Verified 12/10/21 23:49 GLORIA Inhibitors Allergy Unknown Verified 12/10/21 23:49 iodine Allergy Unknown Verified 12/10/21 23:49 tramadol Allergy Unknown Verified 12/10/21 23:49 shellfish derived AdvReac Unknown Unknown Verified 12/10/21 23:49 Calcium Channel Blocking AdvReac Edema Verified 12/10/21 23:49 Agents-Dih - Social History Does the pt smoke?: No Smoking Status: Never smoker Does the pt drink ETOH?: No Does the pt have substance abuse?: No - Immunizations Immunizations are current?: Yes - POLST Patient has POLST: No POLST Status: Full Code PD ED PE NORMAL - Vitals Vital signs reviewed: Yes - General General: Alert and oriented X 3, No acute distress, Well developed/nourished, Other (elderly appearing) - HEENT HEENT: Atraumatic, PERRL, EOMI, Ears normal, Moist mucous membranes, Pharynx benign - Neck Neck: No bony TTP - Cardiac Cardiac: RRR - Respiratory Respiratory: No respiratory distress, Clear bilaterally - Abdomen Abdomen: Non tender, Non distended - Back Back: No spinal TTP, Other (pelvis stable. discomfort with palpation of L ribcage) - Derm Derm: Normal color, Warm and dry, Other (no abrasions or lacerations) - Extremities Extremities: No deformity, Normal ROM s pain - Neuro Neuro: No motor deficit, No sensory deficit - Psych Psych: Normal mood, Normal affect Results - Vitals Vitals: Vital Signs - 24 hr 12/10/21 12/11/21 12/11/21 23:30 00:18 01:00 Temperature 36.9 C Heart Rate 94 70 72 Respiratory 16 16 16 Rate Blood Pressure 130/81 H 142/81 H 148/63 H O2 Saturation 94 93 95 12/11/21 12/11/21 01:30 02:00 Temperature Heart Rate 71 98 Respiratory 16 17 Rate Blood Pressure 163/90 H 151/88 H O2 Saturation 95 96 Oxygen O2 Source [With Activity] Nasal cannula O2 Source [Without Activity] Room air O2 Source Room air PD MEDICAL DECISION MAKING - ED course ED course: 81-year-old woman presents modified trauma after stating that she bumped her head and is on Eliquis. Since like it was a gentle bump to the head and she is more concerned about pain to the left posterior rib cage and tailbone. Will obtain CT and x-rays to evaluate further. Departure - Departure Disposition: 01 Home, Self Care Clinical Impression: Fall from standing Condition: Good Instructions: Falls Prevent Move Safe Outside, Falls Prevent Home, Falls Prevent Exercise, Falls Prevent Stay Active Comments: You were seen in the emergency department for evaluation after a fall. Your CT of the head and neck did not show any injuries. You do have fluid on your lungs, called a pleural effusion. Please follow-up with Dr. Gee about this because you may need follow-up testing such as a CT of the chest. Your x-ray of the pelvis uncovered no injury from tonight. Return to the emergency department if you have any new or worsening symptoms or other concerns.
--- NOTE | 2021-12-11 01:11 | CT Report ---
PROCEDURE: HEAD WO INDICATIONS: Head trauma, mod-severe TECHNIQUE: Noncontrast 4.5 mm thick angled axial sections acquired from the foramen magnum to the vertex. For r adiation dose reduction, the following was used: automated exposure control, adjustment of mA and/or kV according to patient size. COMPARISON: 07/25/2021. FINDINGS: Image quality: Excellent. CSF spaces: There is mild cerebral volume loss with prominence of the ventricles and sulci. Basal ci sterns are patent. No extra-axial fluid collections. Brain: No intracranial hemorrhage, mass, or mass effect. There is a small region of encephalomalacia in the right frontal lobe consistent with a prior infarct redemonstrated. Cortes-white matter interfac e is otherwise preserved. There are subcortical and periventricular white matter hypodensities consis tent with mild chronic small vessel ischemic changes. Skull and face: Calvarium and visualized facial bones are intact, without suspicious lesions. Sinuses: Visualized sinuses and mastoids are clear. IMPRESSION: 1. No acute intracranial abnormality. 2. Mild cerebral volume loss and chronic white matter small vessel ischemic changes. 3. 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 Reviewed by: Keith Davila MD on 12/11/2021 1:10 AM PDT Approved by: Keith Davila MD on 12/11/2021 1:10 AM PDT Station ID: [id number]
--- NOTE | 2021-12-11 01:18 | CT Report ---
PROCEDURE: CERVICAL SPINE WO INDICATIONS: Neck trauma, midline tenderness TECHNIQUE: Noncontrast 3 mm thick sections acquired from the skull base to the T4 level. Sagittal and coronal r eformats were then constructed. For radiation dose reduction, the following was used: automated exp osure control, adjustment of mA and/or kV according to patient size. COMPARISON: CT cervical spine 07/17/2021. FINDINGS: Image quality: Excellent. Bones: No fractures or subluxation. There is straightening of the cervical lordosis. Extensive multi level degenerative disc disease and facet joint arthropathy are present. Visualized superior ribs are intact. Soft tissues: Prevertebral soft tissues are normal in thickness. No paravertebral hematomas. No ap ical pneumothoraces. There are bilateral partially visualized pleural effusions within the lung apice s. There is dependent mucus demonstrated within the visualized trachea. IMPRESSION: 1. No fracture or subluxation. 2. Extensive multilevel degenerative disc disease and facet joint arthropathy. 3. Partially visualized bilateral pleural effusions. Recommend dedicated chest imaging when clinicall y feasible. Reviewed by: Keith Davila MD on 12/11/2021 1:17 AM PDT Approved by: Keith Davila MD on 12/11/2021 1:17 AM PDT Station ID: [id number]
--- NOTE | 2021-12-11 02:01 | XRAY Report ---
PROCEDURE: Chest 1 View X-Ray INDICATIONS: L posterior rib pain TECHNIQUE: One view of the chest was acquired. COMPARISON: Chest x-ray 06/28/2021. FINDINGS: Surgical changes and devices: None. Lungs and pleura: There are bilateral pleural effusions, [id number] on the right and small on the left, with associated bibasilar atelectasis or consolidation. There is pulmonary vascular promin ence consistent with edema. No evidence of pneumothorax. Mediastinum: Mediastinal contours appear unchanged. Heart size is normal. Bones and chest wall: No suspicious bony lesions. Overlying soft tissues appear unremarkable. IMPRESSION: 1. Bilateral pleural effusions, right greater than left, with associated bibasilar atelectasis or con solidation. 2. Pulmonary vascular prominence consistent with pulmonary edema. Reviewed by: Keith Davila MD on 12/11/2021 1:59 AM PDT Approved by: Keith Davila MD on 12/11/2021 1:59 AM PDT Station ID: [id number]
--- NOTE | 2021-12-11 02:03 | XRAY Report ---
PROCEDURE: Pelvis 1 View INDICATIONS: tailbone pain TECHNIQUE: 2 AP views of the pelvis acquired. COMPARISON: None. FINDINGS: Bones: No definite fractures or dislocations. There is a left hip prosthesis. No definite suspicious periprosthetic lucencies. There is severe axial joint space narrowing within the right hip with Soft tissues: Visualized bowel gas pattern is normal. No suspicious soft tissue calcifications. IMPRESSION: 1. No definite fracture or dislocation. 2. Left hip prosthesis demonstrated without definite suspicious periprosthetic lucencies to suggest l oosening or infection on the limited current study. 3. Severe axial joint space narrowing in the right hip. Reviewed by: Keith Davila MD on 12/11/2021 2:02 AM PDT Approved by: Keith Davila MD on 12/11/2021 2:02 AM PDT Station ID: [id number]
[2021-12-11 02:52] VITALS: BP 153/98
== END 2021-12-11 02:53 | disposition home or self-care (01) ==
LOC: ED 23:32
DX: M53.3 Sacrococcygeal disorders, not elsewhere classified (principal); R07.81 Pleurodynia; S09.90XA Unspecified injury of head, initial encounter; J90 Pleural effusion, not elsewhere classified; W18.39XA Other fall on same level, initial encounter; Y93.89 Activity, other specified; Y92.810 Car as the place of occurrence of the external cause
CPT/HCPCS: 99281; 99284

== ENCOUNTER 2021-12-12 11:07 | Emergency (ER) | payer MEDICARE, OTHER ==
[2021-12-12] MEDS ORDERED: ALBUTEROL NEB 2.5 MG/3 ML INH STA (11:19)
[2021-12-12] MEDS ORDERED: FUROSEMIDE 40 MG/4 ML VIAL IVP STA ×2 (11:20→15:51)
--- NOTE | 2021-12-12 11:20 | ED Physician Documentation ---
PD HPI DYSPNEA - Stated complaint Stated Complaint: AMS - History obtained from History obtained from: Patient - History of Present Illness Timing - onset: How many days ago (fell 2 days ago due to balance and fell backward. Some injury to upper back. On DOAC for atrial fibn. Had imaging done in ER and was able to weight bear getting home. Has increasd pain left ankle and right hip the past day and has not gotten from bed due to hip/pelvic pain. Having increased edema.) Timing - onset during: Rest Timing - duration: Days (few) Timing - details: Gradual onset, Still present Inciting event(s): Other (history of CHF and atrial fib in the past. Rx Lasix/diuretic but does not like to take it so only about half of the time takes it. More regular the past week with increased edema but still legs swollen.). No: Out of meds, URI Improved by: Rest, Sitting up Worsened by: Laying flat Associated symptoms: Wheezing, Bilateral edema. No: Fever, Cough, Chest pain / discomfort, Unilateral edema Similar symptoms before: Diagnosis (has had atrial fib and CHF episodes in the past.) Recently seen: Emergency Dept (2 days ago with fall) Review of Systems Constitutional: denies: Fever, Chills Nose: denies: Rhinorrhea / runny nose Throat: denies: Sore throat Cardiac: reports: Pedal edema. denies: Chest pain / pressure, Calf pain Respiratory: reports: Dyspnea, Wheezing. denies: Cough GI: denies: Abdominal Pain, Vomiting, Bloody / black stool Skin: denies: Abrasion (s), Laceration (s) Neurologic: reports: Confused (more than baseline forgetful, per spouse.). 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 LABORER: Hysterectomy, Other HEENT: Cataracts - Present Medications Home Medications: Ambulatory Orders Medication Instructions Recorded Confirmed Terazosin [Hytrin] 5 mg PO BID 08/11/12 07/31/20 Multivitamin [Multivitamins] 1 each PO DAILY 10/06/12 07/31/20 Potassium Chloride [Micro-K] 20 meq PO BIDWM 10/06/12 07/31/20 Oxybutynin Chloride [Ditropan Xl] 15 mg PO DAILY PM 10/23/17 07/31/20 Apixaban [Eliquis] 5 mg BID 02/22/19 07/31/20 metFORMIN [Glucophage] 250 mg PO BID 02/22/19 07/31/20 Furosemide [Lasix] 40 mg PO DAILY #10 tablet 07/02/19 07/31/20 Ferrous Gluconate [Iron] 240 mg PO DAILY 11/24/19 07/31/20 Atorvastatin [Lipitor] 20 mg PO DAILY PM 06/20/20 07/31/20 Carvedilol [Coreg] 25 mg PO BID 06/20/20 07/31/20 Levothyroxine Sodium [Synthroid] 175 mcg PO QDAC 06/20/20 07/31/20 Losartan Potassium [Cozaar] 100 mg PO DAILY PM 06/20/20 07/31/20 Amox/Clav 875/125 [Augmentin] 1 each PO Q12H #14 tablet 06/22/20 07/31/20 Magnesium Oxide [Mag Ox] 400 mg PO DAILY #10 tablet 12/04/20 Potassium Chloride [Micro-K] 10 meq PO BIDWM 10 Days #20 12/04/20 Acetaminophen [Acetaminophen Extra 500 mg PO QID PRN #50 tablet 12/12/21 Strength] Ondansetron Odt [Zofran] 4 mg TL Q6H PRN #10 tablet 12/12/21 oxyCODONE [Roxicodone] 5 mg PO Q4-6H PRN #15 tablet 12/12/21 - Allergies Allergies/Adverse Reactions: Allergies Allergy/AdvReac Type Severity Reaction Status Date / Time codeine [Codeine] Allergy Unknown Rash Verified 12/12/21 11:18 GLORIA Inhibitors Allergy Unknown Verified 12/12/21 11:18 iodine Allergy Unknown Verified 12/12/21 11:18 tramadol Allergy Unknown Verified 12/12/21 11:18 shellfish derived AdvReac Unknown Unknown Verified 12/12/21 11:18 Calcium Channel Blocking AdvReac Edema Verified 12/12/21 11:18 Agents-Dih - Living Situation Living Situation: reports: With spouse/s.o. Living Arrangement: reports: At home - Social History Does the pt smoke?: No Smoking Status: Never smoker Does the pt drink ETOH?: No Does the pt have substance abuse?: No - Immunizations Immunizations are current?: Yes - POLST Patient has POLST: No POLST Status: Full Code PD ED PE NORMAL - Vitals Vital signs reviewed: Yes - General General: Alert and oriented X 3, Well developed/nourished - HEENT HEENT: Atraumatic - Neck Neck: Supple, no meningeal sign, No bony TTP - Cardiac Cardiac: Other (/6 murmur left chest. Not in neck. ). No: RRR (irregular but rate controlled) - Respiratory Respiratory: No respiratory distress. No: Clear bilaterally (some diffuse exp wheezes and also mild bibasilar fine crackles. ) - Abdomen Abdomen: Soft, Non tender - Back Back: No CVA TTP, Other (tender in right gluteal area. Not tailbone. ) - Derm Derm: Normal color, Warm and dry - Extremities Extremities: Other (guarded ROM of the right hip, not wanting me to move it. Left ankle tender without deformity. Both lower legs with 2+ edema with mild superficial blistering left anterior in particular. ) - Neuro Neuro: No motor deficit, No sensory deficit, Normal speech. No: Alert and oriented X 3 (oreinted to person and place. Poor short term memory, such as being here in ER 2 days ago. ) Results - Vitals Vitals: Vital Signs - 24 hr 12/12/21 12/12/21 12/12/21 11:12 11:58 13:52 Temperature 36.4 C L Heart Rate 112 H 89 88 Respiratory 24 28 H 18 Rate Blood Pressure 121/101 H 148/117 H 132/100 H O2 Saturation 98 100 100 12/12/21 12/12/21 12/12/21 14:05 16:00 18:00 Temperature Heart Rate 77 85 74 Respiratory 20 23 Rate Blood Pressure 137/84 H 157/66 H O2 Saturation 97 100 94 Oxygen O2 Source [With Activity] Nasal cannula O2 Source [Without Activity] Room air O2 Source Room air - Labs Labs: Laboratory Tests 12/12/21 12/12/21 12/12/21 11:35 11:35 11:35 WBC 5.4 RBC 3.84 L Hgb 10.1 L Hct 33.8 L MCV 88.0 MCH 26.3 L MCHC 29.9 L RDW 18.1 H Plt Count 182 MPV 10.1 Neut # (Auto) 4.1 Lymph # (Auto) 0.7 L [place] # (Auto) 0.5 Eos # (Auto) 0.1 Baso # (Auto) 0.0 Absolute Nucleated RBC 0.00 Nucleated RBC % 0.0 Sodium 140 Potassium 4.0 Chloride 102 Carbon Dioxide 32 Anion Gap 6.0 BUN 15 Creatinine 0.8 Estimated GFR (MDRD) 69 L Glucose 171 H Calcium 8.9 Magnesium 1.7 Total Bilirubin 1.3 H AST 15 ALT 12 Alkaline Phosphatase 79 B-Natriuretic Peptide 955 H Total Protein 6.4 L Albumin 3.4 Globulin 3.0 Albumin/Globulin Ratio 1.1 Lipase 31 - Rads (name of study) head CT Radiology: Prelim report reviewed, EMP read contemporaneously (on DOAC and having some confusion per spouse. So repeated CT though had one 2 days ago.), See rad report pelvic CT Radiology: Prelim report reviewed (no fractures), See rad report chest xray Radiology: Prelim report reviewed (increased vascular congestion. no infiltrates. ), See rad report left knee and ankle Radiology: Prelim report reviewed (no fractures. ), See rad report PD MEDICAL DECISION MAKING - ED course Complexity details: reviewed old records (had head/neck/chest CT 2 days ago and pelvic xray. Having right hip/pelvic pain more today. Can get CT pelvis and xray knee/ankle on left, that are hurting now too. ), reviewed results, re-evaluated patient (pain improved with pain meds. She did get nauseated from the dilaudid and given Zofran with improvment. She had had some diuresis in ER from the Lasix. Sats are good and no difficulty breathing here, so not any criteria for admission. ), considered differential (has pelvic/hip pain since fall 2 days ago. hurting for weight bearing on left and then also right enroute. Also noting increased bilateral leg edema and some dyspnea lying. ), d/w patient, d/w family Departure - Departure Disposition: 01 Home, Self Care Clinical Impression: Fall from standing, Contusion, buttock Condition: Stable Record reviewed to determine appropriate education?: Yes Follow-Up: Elijah Gee MD [Primary Care Provider] - Prescriptions: Acetaminophen [Acetaminophen Extra Strength] 500 mg PO QID PRN #50 tablet PRN Reason: Pain oxyCODONE [Roxicodone] 5 mg PO Q4-6H PRN #15 tablet PRN Reason: Pain Ondansetron Odt [Zofran] 4 mg TL Q6H PRN #10 tablet PRN Reason: Nausea / Vomiting Comments: You do not have any fractures evident on x-rays nor CT scans. They did see some bruising and swelling and around the buttocks and back of the pelvis. This is likely the cause of the pain with movement of your hip. Unfortunately there is not any indications based on your imaging and such for admission to the hospital. We would treat it with regular Tylenol 4 times a day and to that add oxycodone if needed for pain every 6 hours. Regarding your trouble breathing and leg swelling, it does look like some fluid retention/increased heart failure. I would have you double your Lasix from the 40 mg once a day to the 40 mg in the morning and a repeat 40 mg around noon time. See how much improvement you have in your leg swelling etc. over the next several days. Follow-up with your primary care. Use a walker if needed for getting up and around. I transmitted your prescriptions to your preferred pharmacy, the [facility]. I am prescribing a short course of narcotic pain medication for you. These are potentially dangerous and addictive medications that should be used carefully. These medications may constipate you. Take an [id number] stool softener such as docusate twice daily with plenty of water while taking these medications. If you go 24 hours without a bowel movement, take [id number] MiraLAX, per package instructions. Do not drink or drive while taking these medications. If you received narcotic or sedating medications while in the emergency department do not drive for 24 hours. Store this medication in a safe, secure place and out of reach of children. It is a violation of federal law to give or sell this medication to another person or to use in a manner other than prescribed. The ED will not refill narcotic prescriptions, including prescriptions lost or stolen. You can dispose of unwanted medications at the [facility]'s office or at several pharmacies such as [facility]. Discharge Date/Time: 12/12/21 20:25
[2021-12-12 11:50] LABS: BASOPHILS % (AUTO) 0.6 %; EOSINOPHILS # (AUTO) 0.1 10^3/uL (0.0-0.7); EOSINOPHILS % (AUTO) 1.1 %; HCT - HEMATOCRIT 33.8 % (37.0-47.0); HGB - HEMOGLOBIN 10.1 g/dL (12.0-16.0); LYMPHOCYTES # (AUTO) 0.7 10^3/uL (1.5-3.5); LYMPHOCYTES % (AUTO) 12.9 %; MEAN CORPUSCULAR HEMOGLOBIN 26.3 pg (27.0-31.0); MEAN CORPUSCULAR HGB CONC 29.9 g/dL (32.0-36.0); MEAN PLATELET VOLUME 10.1 fL (7.9-10.8); MONOCYTES # (AUTO) 0.5 10^3/uL (0.0-1.0); MONOCYTES % (AUTO) 9.9 %; NEUTROPHILS # (AUTO) 4.1 10^3/uL (1.5-6.6); NEUTROPHILS % (AUTO) 74.9 %; PLT - PLATELET COUNT 182 10^3/uL (130-450); RED BLOOD COUNT 3.84 10^6/uL (4.20-5.40); RED CELL DISTRIBUTION WIDTH 18.1 % (12.0-15.0); WHITE BLOOD COUNT 5.4 x10^3/uL (4.8-10.8)
--- NOTE | 2021-12-12 11:50 | XRAY Report ---
PROCEDURE: Chest 1 View X-Ray INDICATIONS: dyspnea and cough TECHNIQUE: One view of the chest was acquired. COMPARISON: 12/11/2021 FINDINGS: Surgical changes and devices: None. Lungs and pleura: Similar mild to moderate bilateral effusions with mid and lower lung consolidation s and atelectasis. Mediastinum: Borderline enlarged heart. Bones and chest wall: No suspicious bony lesions. Overlying soft tissues appear unremarkable. IMPRESSION: Similar mild to moderate bilateral effusions and mid and lower lung infectious or inflammatory airspa ce disease with atelectasis. There may be superimposed edema. Consider imaging surveillance to monitor for resolution. Reviewed by: Gerson Wallace MD on 12/12/2021 11:49 AM PDT Approved by: Gerson Wallace MD on 12/12/2021 11:49 AM PDT Station ID: [id number]
[2021-12-12 11:57] LABS: ALBUMIN 3.4 g/dL (3.2-5.5); ALBUMIN/GLOBULIN RATIO 1.1 (1.0-2.2); BILIRUBIN,TOTAL 1.3 mg/dL (0.2-1.0); CALCIUM 8.9 mg/dL (8.5-10.3); CREATININE 0.8 mg/dL (0.4-1.0); MAGNESIUM 1.7 mg/dL (1.7-2.8); TOTAL PROTEIN 6.4 g/dL (6.7-8.2)
--- NOTE | 2021-12-12 13:31 | CT Report ---
PROCEDURE: HEAD WO INDICATIONS: recent fall, on DOAC. increased confusion today TECHNIQUE: Noncontrast 4.5 mm thick angled axial sections acquired from the foramen magnum to the vertex. For r adiation dose reduction, the following was used: automated exposure control, adjustment of mA and/or kV according to patient size. COMPARISON: 12/11/2021 FINDINGS: Image quality: Excellent. CSF spaces: Basal cisterns are patent. No extra-axial fluid collections. The ventricles are symmet sylvia in size and shape. Brain: No intracranial bleeds or masses. 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 There is cerebral volume loss for age, with resultant ventricular and sulcal prominence. There are periventricular and deep white matter chronic small vessel ischemic changes. There is int racranial internal carotid artery atherosclerosis. Skull and face: Calvarium and visualized facial bones appear intact, without suspicious lesions. Sinuses: Visualized sinuses and mastoids are clear. IMPRESSION: No CT evidence of acute intracranial abnormalities. No significant changes from previous study. If in dicated, MRI of brain can be done for further evaluation of acute infarction. Reviewed by: Navid Judd MD on 12/12/2021 1:29 PM PDT Approved by: Navid Judd MD on 12/12/2021 1:29 PM PDT Station ID: [id number]
--- NOTE | 2021-12-12 15:48 | CT Report ---
PROCEDURE: PELVIS WO INDICATIONS: fall 2 days ago with right hip pain; normal xray TECHNIQUE: Noncontrast 3 mm axial sections acquired through the bony pelvis, with coronal and sagittal reformatt ing. For radiation dose reduction, the following was used: automated exposure control, adjustment of mA and/or kV according to patient size. COMPARISON: Radiograph 12/10/2021 FINDINGS: Image quality: Excellent. Bones: Advanced right hip arthrosis. Left hip arthroplasty in appropriate position. No periprostheti c fracture, within the limits of adjacent beam hardening artifact. Partially seen lower lumbar fusion hardware. No pubic diastases. Soft tissues: Asymmetric atrophy of the left psoas. There is also gluteal muscular atrophy. Pelvic w all edema. There are atherosclerotic calcifications. No bowel obstruction. Intrapelvic structures are obscured by metallic artifact. Lower extremity edema. Incidental left thigh lipoma. IMPRESSION: No displaced fracture. Appropriate positioning of the left hip arthroplasty. Advanced right hip degen erative changes, without dislocation. Lower extremity and pelvic wall edema and possible contusion. Reviewed by: Gerson Wallace MD on 12/12/2021 3:47 PM PDT Approved by: Gerson Wallace MD on 12/12/2021 3:47 PM PDT Station ID: [id number]
--- NOTE | 2021-12-12 16:12 | XRAY Report ---
PROCEDURE: Ankle 3 View LT INDICATIONS: fall 2 days ago, pain left ankle/knee TECHNIQUE: 3 views of the ankle were acquired. COMPARISON: None FINDINGS: Bones: No fractures or dislocations. Ankle mortise is normally aligned. No suspicious bony lesions . Soft tissues: No tibiotalar joint effusion. Achilles tendon appears normal. IMPRESSION: No visualized acute fracture or dislocation. However, occult injury cannot be excluded. Recommend short interval imaging follow-up in 7-10 days as clinically indicated for additional evalua tion. Reviewed by: Elizabet Bradley MD on 12/12/2021 4:10 PM PDT Approved by: Elizabet Bradley MD on 12/12/2021 4:10 PM PDT Station ID: [id number]
--- NOTE | 2021-12-12 16:12 | XRAY Report ---
PROCEDURE: Knee 3 View LT INDICATIONS: fall 2 days ago, pain ankle/knee TECHNIQUE: 3 views of the left knee(s) were acquired. COMPARISON: None. FINDINGS: Bones: No fractures or dislocations. No suspicious bony lesions. Soft tissues: No joint effusion. No suspicious soft tissue calcifications. IMPRESSION: No visualized acute fracture or dislocation. However, occult injury cannot be excluded. Recommend short interval imaging follow-up in 7-10 days as clinically indicated for additional evalua tion. Reviewed by: Elizabet Bradley MD on 12/12/2021 4:10 PM PDT Approved by: Elizabet Bradley MD on 12/12/2021 4:10 PM PDT Station ID: [id number]
[2021-12-12 16:21] VITALS: BP 157/66
[2021-12-12] MEDS ORDERED: KETOROLAC 15 MG/ML VIAL IVP STA (17:20)
[2021-12-12] MEDS ORDERED: HYDROmorphone 0.5 MG/0.5 ML SYRINGE IVP STA (17:20)
[2021-12-12] MEDS ORDERED: ONDANSETRON 4 MG/2 ML VIAL IVP STA (18:45)
[2021-12-12] MEDS ORDERED: oxyCODONE/ACET 5/325 Prepack 4 PO STA (18:46)
[2021-12-12] MEDS ORDERED: ONDANSETRON ODT 4 MG Prepack 2 TL PRN (19:58)
== END 2021-12-12 20:25 | disposition home or self-care (01) ==
LOC: EDUNIT# → ED 11:07 → SUPCPDRO 11:07 → ED 20:25
DX: S30.0XXA Contusion of lower back and pelvis, initial encounter (principal); W19.XXXA Unspecified fall, initial encounter; I48.91 Unspecified atrial fibrillation; Z79.01 Long term (current) use of anticoagulants; E11.9 Type 2 diabetes mellitus without complications; Z79.84 Long term (current) use of oral hypoglycemic drugs; I10 Essential (primary) hypertension
CPT/HCPCS: 36415; 70450; 71045; 72192; 73562; 73610; 80053; 83690; 83735; 83880; 85025; 93005; 94640; 94664; 96374; 96375; 96376; 99284; 99285; J1170

== ENCOUNTER 2021-12-23 10:53 | Outpatient (CLI) | payer MEDICARE, OTHER | END 2021-12-23 10:54 | disposition EMS.NT | LOC: EMS 10:53 | DX: M25.552 Pain in left hip (principal); W07.XXXA Fall from chair, initial encounter; Y92.009 Unspecified place in unspecified non-institutional (private) residence as the place of occurrence of the external cause ==

== ENCOUNTER 2021-12-26 13:26 | Outpatient (CLI) | payer MEDICARE, OTHER | END 2021-12-26 13:27 | disposition critical access hospital (66) | LOC: EMS 13:26 | DX: R53.1 Weakness (principal); R60.0 Localized edema; T50.906A Underdosing of unspecified drugs, medicaments and biological substances, initial encounter; Z91.128 Patient's intentional underdosing of medication regimen for other reason | CPT/HCPCS: A0425; A0429 ==

== ENCOUNTER 2021-12-26 13:42 | Emergency (ER) | payer MEDICARE, OTHER ==
--- NOTE | 2021-12-26 15:01 | XRAY Report ---
PROCEDURE: Chest 1 View X-Ray INDICATIONS: weakness TECHNIQUE: One view of the chest was acquired. COMPARISON: 12/12/2021 FINDINGS: Surgical changes and devices: None. Lungs and pleura: No pneumothorax. No change in small right greater than left pleural effusions. Sig nificant change in moderate bibasilar airspace opacity. Mediastinum: Mediastinal contours appear normal. Heart size is normal. Bones and chest wall: No suspicious bony lesions. Overlying soft tissues appear unremarkable. IMPRESSION: No significant change in bibasilar pneumonia with small right greater than left pleural effusions. Fo llow-up PA and lateral chest x-rays or chest CT is recommended to ensure resolution, and to exclude u nderlying neoplasm. Reviewed by: Yasmin Mak MD on 12/26/2021 3:00 PM PDT Approved by: Yasmin Mak MD on 12/26/2021 3:00 PM PDT Station ID: [id number]
[2021-12-26 15:34] LABS: BASOPHILS % (AUTO) 0.4 %; EOSINOPHILS # (AUTO) 0.1 10^3/uL (0.0-0.7); EOSINOPHILS % (AUTO) 2.6 %; HCT - HEMATOCRIT 33.6 % (37.0-47.0); HGB - HEMOGLOBIN 10.2 g/dL (12.0-16.0); LYMPHOCYTES # (AUTO) 0.6 10^3/uL (1.5-3.5); MEAN CORPUSCULAR HEMOGLOBIN 27.3 pg (27.0-31.0); MEAN CORPUSCULAR HGB CONC 30.4 g/dL (32.0-36.0); MEAN CORPUSCULAR VOLUME 90.1 fL (81.0-99.0); MEAN PLATELET VOLUME 9.8 fL (7.9-10.8); MONOCYTES # (AUTO) 0.3 10^3/uL (0.0-1.0); MONOCYTES % (AUTO) 7.1 %; NEUTROPHILS # (AUTO) 3.6 10^3/uL (1.5-6.6); NEUTROPHILS % (AUTO) 77.5 %; PLT - PLATELET COUNT 253 10^3/uL (130-450); RED BLOOD COUNT 3.73 10^6/uL (4.20-5.40); RED CELL DISTRIBUTION WIDTH 19.2 % (12.0-15.0); WHITE BLOOD COUNT 4.7 x10^3/uL (4.8-10.8)
[2021-12-26 15:39] LABS: ALBUMIN 3.4 g/dL (3.2-5.5); BILIRUBIN,TOTAL 1.3 mg/dL (0.2-1.0); CALCIUM 9.1 mg/dL (8.5-10.3); CREATININE 0.8 mg/dL (0.4-1.0); POTASSIUM 4.1 mmol/L (3.5-5.0); TOTAL PROTEIN 6.8 g/dL (6.7-8.2)
[2021-12-26] MEDS: FUROSEMIDE 40 MG/4 ML VIAL IVP STA (16:41)
[2021-12-26 16:43] LABS: BILIRUBIN,URINE NEGATIVE (NEGATIVE); GLUCOSE, URINE (UA) NEGATIVE (NEGATIVE); KETONES,URINE (UA) NEGATIVE (NEGATIVE); LEUKOCYTE ESTERASE, URINE NEGATIVE (NEGATIVE); NITRITE,URINE NEGATIVE (NEGATIVE); OCCULT BLOOD,URINE NEGATIVE (NEGATIVE); PROTEIN,URINE NEGATIVE (NEGATIVE); UROBILINOGEN,URINE 0.2 (NORMAL) E.U./dL (NORMAL)
[2021-12-26 16:45] LABS: CLARITY,URINE CLEAR (CLEAR)
--- NOTE | 2021-12-26 17:17 | ED Physician Documentation ---
History of Present Illness - Stated complaint Stated Complaint: WEAKNESS - Chief complaint Chief Complaint: General - History obtained from History obtained from: Patient - Additonal information Additional information: Patient is an 81-year-old female with a history of Atrial fibrillation, CHF presenting for evaluation of generalized weakness. Per , she was too weak to stand up out of bed this morning. She feels that her legs have no power. She has not been compliant with her medications recently including the use of her Lasix as it makes her go to the bathroom too often. She denies fall today or over the past few days. She denies chest pain, difficulty breathing, abdominal pain, vomiting. She has a nonproductive cough. She does report increased swelling to bilateral lower extremities. She denies dysuria. Review of Systems Constitutional: denies: Fever Cardiac: denies: Chest pain / pressure Respiratory: reports: Cough. denies: Dyspnea GI: denies: Abdominal Pain, Vomiting : denies: Dysuria Musculoskeletal: reports: Extremity swelling Neurologic: reports: Generalized weakness. 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 : 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 HEENT: None Psych: None Musculoskeletal: Osteoarthritis Derm: None - Past Surgical History Past Surgical History: Yes General: Colonoscopy, EGD Ortho: Hip replacement, Spine surgery /HOME VISIT FIELD CARE MANAGER: Hysterectomy, Other HEENT: Cataracts - Present Medications Home Medications: Ambulatory Orders Medication Instructions Recorded Confirmed Terazosin [Hytrin] 5 mg PO BID 08/11/12 07/31/20 Multivitamin [Multivitamins] 1 each PO DAILY 10/06/12 07/31/20 Potassium Chloride [Micro-K] 20 meq PO BIDWM 10/06/12 07/31/20 Oxybutynin Chloride [Ditropan Xl] 15 mg PO DAILY PM 10/23/17 07/31/20 Apixaban [Eliquis] 5 mg BID 02/22/19 07/31/20 metFORMIN [Glucophage] 250 mg PO BID 02/22/19 07/31/20 Furosemide [Lasix] 40 mg PO DAILY #10 tablet 07/02/19 07/31/20 Ferrous Gluconate [Iron] 240 mg PO DAILY 11/24/19 07/31/20 Atorvastatin [Lipitor] 20 mg PO DAILY PM 06/20/20 07/31/20 Carvedilol [Coreg] 25 mg PO BID 06/20/20 07/31/20 Levothyroxine Sodium [Synthroid] 175 mcg PO QDAC 06/20/20 07/31/20 Losartan Potassium [Cozaar] 100 mg PO DAILY PM 06/20/20 07/31/20 Amox/Clav 875/125 [Augmentin] 1 each PO Q12H #14 tablet 06/22/20 07/31/20 Magnesium Oxide [Mag Ox] 400 mg PO DAILY #10 tablet 12/04/20 Potassium Chloride [Micro-K] 10 meq PO BIDWM 10 Days #20 12/04/20 Acetaminophen [Acetaminophen Extra 500 mg PO QID PRN #50 tablet 12/12/21 Strength] Ondansetron Odt [Zofran] 4 mg TL Q6H PRN #10 tablet 12/12/21 oxyCODONE [Roxicodone] 5 mg PO Q4-6H PRN #15 tablet 12/12/21 Amox/Clav 875/125 [Augmentin] 1 each PO Q12H #14 tablet 12/26/21 Doxycycline Hyclate 100 mg PO BID #14 tab 12/26/21 - Allergies Allergies/Adverse Reactions: Allergies Allergy/AdvReac Type Severity Reaction Status Date / Time codeine [Codeine] Allergy Unknown Rash Verified 12/26/21 13:59 GLORIA Inhibitors Allergy Unknown Verified 12/26/21 13:59 iodine Allergy Unknown Verified 12/26/21 13:59 tramadol Allergy Unknown Verified 12/26/21 13:59 shellfish derived AdvReac Unknown Unknown Verified 12/26/21 13:59 Calcium Channel Blocking AdvReac Edema Verified 12/26/21 13:59 Agents-Dih - Social History Does the pt smoke?: No Smoking Status: Never smoker Does the pt drink ETOH?: No Does the pt have substance abuse?: No - Immunizations Immunizations are current?: Yes - POLST Patient has POLST: No POLST Status: Full Code PD ED PE NORMAL - General General: Alert and oriented X 3, No acute distress, Well developed/nourished - HEENT HEENT: Atraumatic, Moist mucous membranes - Neck Neck: Supple, no meningeal sign - Cardiac Cardiac: RRR, No murmur, Strong equal pulses - Respiratory Respiratory: No respiratory distress, Clear bilaterally, Other (Diminished breath sounds at the bases) - Abdomen Abdomen: Normal bowel sounds, Soft, Non tender, Non distended - Extremities Extremities: No calf tenderness / cord, Other (Bilateral lower extremity edema) - Neuro Neuro: Alert and oriented X 3, grader operator 2-12 intact, No motor deficit, Normal speech Results - Vitals Vitals: Vital Signs - 24 hr 12/26/21 12/26/21 12/26/21 13:50 15:58 17:58 Temperature 36.6 C 36.7 C Heart Rate 102 H 93 90 Respiratory 17 23 24 Rate Blood Pressure 157/97 H 134/66 H 153/96 H O2 Saturation 96 100 99 Oxygen O2 Source [] Nasal cannula O2 Source [] Room air O2 Source Room air - EKG (time done) 1721 Rate: Rate (enter#) (94) Rhythm: Atrial fibrillation Intervals: RBBB Ischemia: No: ST elevation c/w ischemia - Labs Labs: Laboratory Tests 12/26/21 12/26/21 12/26/21 15:22 15:22 15:22 WBC 4.7 L RBC 3.73 L Hgb 10.2 L Hct 33.6 L MCV 90.1 MCH 27.3 MCHC 30.4 L RDW 19.2 H Plt Count 253 MPV 9.8 Neut # (Auto) 3.6 Lymph # (Auto) 0.6 L Sterling # (Auto) 0.3 Eos # (Auto) 0.1 Baso # (Auto) 0.0 Absolute Nucleated RBC 0.00 Nucleated RBC % 0.0 Sodium 141 Potassium 4.1 Chloride 106 Carbon Dioxide 29 Anion Gap 6.0 BUN 15 Creatinine 0.8 Estimated GFR (MDRD) 69 L Glucose 68 L Calcium 9.1 Total Bilirubin 1.3 H AST 22 ALT 18 Alkaline Phosphatase 83 B-Natriuretic Peptide 1072 H Total Protein 6.8 Albumin 3.4 Globulin 3.4 Albumin/Globulin Ratio 1.0 Lipase 29 Urine Color Urine Clarity Urine pH Ur Specific Esmond Urine Protein Urine Glucose (UA) Urine Ketones Urine Occult Blood Urine Nitrite Urine Bilirubin Urine Urobilinogen Ur Leukocyte Esterase Ur Microscopic Review Urine Culture Comments SARS-CoV-2 (PCR) 12/26/21 12/26/21 15:40 17:20 WBC RBC Hgb Hct MCV MCH MCHC RDW Plt Count MPV Neut # (Auto) Lymph # (Auto) Sterling # (Auto) Eos # (Auto) Baso # (Auto) Absolute Nucleated RBC Nucleated RBC % Sodium Potassium Chloride Carbon Dioxide Anion Gap BUN Creatinine Estimated GFR (MDRD) Glucose Calcium Total Bilirubin AST ALT Alkaline Phosphatase B-Natriuretic Peptide Total Protein Albumin Globulin Albumin/Globulin Ratio Lipase Urine Color YELLOW Urine Clarity CLEAR Urine pH 6.0 Ur Specific Esmond 1.010 Urine Protein NEGATIVE Urine Glucose (UA) NEGATIVE Urine Ketones NEGATIVE Urine Occult Blood NEGATIVE Urine Nitrite NEGATIVE Urine Bilirubin NEGATIVE Urine Urobilinogen 0.2 (NORMAL) Ur Leukocyte Esterase NEGATIVE Ur Microscopic Review NOT INDICATED Urine Culture Comments NOT INDICATED SARS-CoV-2 (PCR) NOT DETECTED PD MEDICAL DECISION MAKING - ED course Complexity details: reviewed results, re-evaluated patient, d/w patient, d/w family ED course: Pt with generalized weakness. VSS. Labs reviewed. Cxray with concerns for possible PNA vs fluid. Pt is not hypoxic. DOes report cough. No fever. After discussion with pt, will treat with antibiotics. Given comorbidities, pt double covered with augmentin and doxycyline. Pt had good diuresis on lasix here and encouraged to adhere to her medication regiment. She was able to ambulate at her baseline with a walker. No focal deficits to suggest stroke. is also at bedside. They are advised on concerning symptoms to return for. Departure - Departure Disposition: 01 Home, Self Care Clinical Impression: Generalized weakness, CAP (community acquired pneumonia), CHF (congestive heart failure), Noncompliance with medication regimen Condition: Stable Instructions: ED CHF General, ED Pneumonia Adult, ED Weakness [facility] Follow-Up: Elijah Gee MD [Primary Care Provider] - Prescriptions: Amox/Clav 875/125 [Augmentin] 1 each PO Q12H #14 tablet Doxycycline Hyclate 100 mg PO BID #14 tab Comments: You were evaluated for weakness. Your labs were checked and overall appear similar to previous labs. Your urine did not show signs of an infection. Your chest x-ray did show concerns for pneumonia As well as fluid in your lungs. We did give you a dose of your home Lasix. And I have started you on oral antibiotics. Your oxygen levels here are normal and your vital signs otherwise appear stable.It is important to take all of your medications as prescribed.I have sent prescriptions for the antibiotics to treat pneumonia to the [facility] [place] sampler [place]. The radiologist does recommend getting a repeat chest x-ray or CT scan in the next several weeks to ensure that the abnormality seen on today's x-rays are im proving.Please call your primary care doctor for close follow-up. If you have any worsening symptoms please return to the emergency department. Discharge Date/Time: 12/26/21 17:58
[2021-12-26] MEDS: AZITHROMYCIN 250 MG TABLET PO STA (17:23)
[2021-12-26] MEDS: AMOX/CLAV 875 MG/125 MG TABLET PO STA (17:23)
[2021-12-26 17:59] VITALS: BP 153/96
== END 2021-12-26 17:58 | disposition home or self-care (01) ==
LOC: EDUNIT# → ED 13:42
DX: J18.8 Other pneumonia, unspecified organism (principal); I11.0 Hypertensive heart disease with heart failure; I50.9 Heart failure, unspecified; Z91.14 Patient's other noncompliance with medication regimen; I48.91 Unspecified atrial fibrillation; R05.9 Cough, unspecified; E11.9 Type 2 diabetes mellitus without complications; Z79.84 Long term (current) use of oral hypoglycemic drugs
CPT/HCPCS: 36415; 71045; 80053; 81003; 83690; 83880; 85025; 87635; 93005; 96374; 99284; A9270; 81001; 87086

== ENCOUNTER 2021-12-27 09:12 | Outpatient (CLI) | payer MEDICARE, OTHER | END 2021-12-27 09:13 | disposition critical access hospital (66) | LOC: EMS 09:12 | DX: E11.649 Type 2 diabetes mellitus with hypoglycemia without coma (principal) | CPT/HCPCS: A0425; A0427 ==

== ENCOUNTER 2021-12-27 09:30 | Emergency (ER) | payer MEDICARE, OTHER ==
[2021-12-27 10:13] LABS: BASOPHILS % (AUTO) 0.6 %; EOSINOPHILS # (AUTO) 0.1 10^3/uL (0.0-0.7); EOSINOPHILS % (AUTO) 2.9 %; HCT - HEMATOCRIT 32.4 % (37.0-47.0); HGB - HEMOGLOBIN 9.8 g/dL (12.0-16.0); LYMPHOCYTES # (AUTO) 0.5 10^3/uL (1.5-3.5); LYMPHOCYTES % (AUTO) 9.8 %; MEAN CORPUSCULAR HEMOGLOBIN 27.3 pg (27.0-31.0); MEAN CORPUSCULAR HGB CONC 30.2 g/dL (32.0-36.0); MEAN CORPUSCULAR VOLUME 90.3 fL (81.0-99.0); MEAN PLATELET VOLUME 9.2 fL (7.9-10.8); MONOCYTES # (AUTO) 0.4 10^3/uL (0.0-1.0); MONOCYTES % (AUTO) 7.7 %; NEUTROPHILS # (AUTO) 3.9 10^3/uL (1.5-6.6); NEUTROPHILS % (AUTO) 78.6 %; PLT - PLATELET COUNT 234 10^3/uL (130-450); RED BLOOD COUNT 3.59 10^6/uL (4.20-5.40); RED CELL DISTRIBUTION WIDTH 19.2 % (12.0-15.0); WHITE BLOOD COUNT 4.9 x10^3/uL (4.8-10.8)
[2021-12-27 10:28] LABS: ALBUMIN 3.3 g/dL (3.2-5.5); BILIRUBIN,TOTAL 1.5 mg/dL (0.2-1.0); CALCIUM 8.9 mg/dL (8.5-10.3); CREATININE 0.9 mg/dL (0.4-1.0); POTASSIUM 3.9 mmol/L (3.5-5.0); TOTAL PROTEIN 6.6 g/dL (6.7-8.2)
--- NOTE | 2021-12-27 11:03 | CT Report ---
PROCEDURE: HEAD WO INDICATIONS: fall from chair TECHNIQUE: Noncontrast 4.5 mm thick angled axial sections acquired from the foramen magnum to the vertex. For r adiation dose reduction, the following was used: automated exposure control, adjustment of mA and/or kV according to patient size. COMPARISON: None. FINDINGS: Image quality: Excellent. CSF spaces: Basal cisterns are patent. No extra-axial fluid collections. Ventricles are normal in size and shape. Brain: No midline shift. No intracranial masses or hemorrhage. Cortes-white matter interface is norm al. Skull and face: Calvarium and visualized facial bones are intact, without suspicious lesions. Sinuses: Visualized sinuses and mastoids are clear. IMPRESSION: No acute intracranial finding. Reviewed by: Dariel Rasheed MD on 12/27/2021 11:01 AM PDT Approved by: Dariel Rasheed MD on 12/27/2021 11:01 AM PDT Station ID: [id number]
--- NOTE | 2021-12-27 12:41 | ED Physician Documentation ---
History of Present Illness - Stated complaint Stated Complaint: LOW BLOOD SUGAR - Chief complaint Chief Complaint: General - History obtained from History obtained from: Patient, EMS - Additonal information Additional information: Patient is an 81-year-old female with a history of A. fib brought in for evaluation of hypoglycemia. Patient takes metformin and Glimepiride for her diabetes. Per her , she did take her medications last night and did have a meal. This morning she slid out of her recliner and when EMS went to evaluate her they noted that her blood sugar was low in the 30s. They gave her oral glucose but it did not go up very much so they gave her IV dextrose which had improved her mentation. It is unclear whether she hit her head or had any LOC. Patient was seen in the emergency department yesterday for generalized weakness. She was able to ambulate was discharged home. She does not recall being in the emergency department yesterday. Review of Systems Constitutional: denies: Fever Nose: denies: Congestion Cardiac: denies: Chest pain / pressure GI: denies: Abdominal Pain, Vomiting : denies: Dysuria Musculoskeletal: reports: Extremity swelling. 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 : 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 HEENT: None Psych: None Musculoskeletal: Osteoarthritis Derm: None - Past Surgical History Past Surgical History: Yes General: Colonoscopy, EGD Ortho: Hip replacement, Spine surgery /PHOTOGRAPHER HELPER: Hysterectomy, Other HEENT: Cataracts - Present Medications Home Medications: Ambulatory Orders Medication Instructions Recorded Confirmed Terazosin [Hytrin] 5 mg PO BID 08/11/12 07/31/20 Multivitamin [Multivitamins] 1 each PO DAILY 10/06/12 07/31/20 Potassium Chloride [Micro-K] 20 meq PO BIDWM 10/06/12 07/31/20 Oxybutynin Chloride [Ditropan Xl] 15 mg PO DAILY PM 10/23/17 07/31/20 Apixaban [Eliquis] 5 mg BID 02/22/19 07/31/20 metFORMIN [Glucophage] 250 mg PO BID 02/22/19 07/31/20 Furosemide [Lasix] 40 mg PO DAILY #10 tablet 07/02/19 07/31/20 Ferrous Gluconate [Iron] 240 mg PO DAILY 11/24/19 07/31/20 Atorvastatin [Lipitor] 20 mg PO DAILY PM 06/20/20 07/31/20 Carvedilol [Coreg] 25 mg PO BID 06/20/20 07/31/20 Levothyroxine Sodium [Synthroid] 175 mcg PO QDAC 06/20/20 07/31/20 Losartan Potassium [Cozaar] 100 mg PO DAILY PM 06/20/20 07/31/20 Amox/Clav 875/125 [Augmentin] 1 each PO Q12H #14 tablet 06/22/20 07/31/20 Magnesium Oxide [Mag Ox] 400 mg PO DAILY #10 tablet 12/04/20 Potassium Chloride [Micro-K] 10 meq PO BIDWM 10 Days #20 12/04/20 Acetaminophen [Acetaminophen Extra 500 mg PO QID PRN #50 tablet 12/12/21 Strength] Ondansetron Odt [Zofran] 4 mg TL Q6H PRN #10 tablet 12/12/21 oxyCODONE [Roxicodone] 5 mg PO Q4-6H PRN #15 tablet 12/12/21 Amox/Clav 875/125 [Augmentin] 1 each PO Q12H #14 tablet 12/26/21 Doxycycline Hyclate 100 mg PO BID #14 tab 12/26/21 - Allergies Allergies/Adverse Reactions: Allergies Allergy/AdvReac Type Severity Reaction Status Date / Time codeine [Codeine] Allergy Unknown Rash Verified 12/27/21 09:50 GLORIA Inhibitors Allergy Unknown Verified 12/27/21 09:50 iodine Allergy Unknown Verified 12/27/21 09:50 tramadol Allergy Unknown Verified 12/27/21 09:50 shellfish derived AdvReac Unknown Unknown Verified 12/27/21 09:50 Calcium Channel Blocking AdvReac Edema Verified 12/27/21 09:50 Agents-Dih - Social History Does the pt smoke?: No Smoking Status: Never smoker Does the pt drink ETOH?: No Does the pt have substance abuse?: No - Immunizations Immunizations are current?: Yes - POLST Patient has POLST: No POLST Status: Full Code PD ED PE NORMAL - General General: Alert and oriented X 3, No acute distress, Well developed/nourished - HEENT HEENT: Atraumatic, PERRL, EOMI, Pharynx benign - Neck Neck: Supple, no meningeal sign, No bony TTP - Cardiac Cardiac: Strong equal pulses, Other (Normal rate, irregularly irregular) - Respiratory Respiratory: No respiratory distress, Clear bilaterally - Abdomen Abdomen: Soft, Non tender, Non distended - Extremities Extremities: No calf tenderness / cord, Other (Bilateral lower extremity edema) - Neuro Neuro: Alert and oriented X 3, automation consultant 2-12 intact, No motor deficit, Normal speech Results - Vitals Vitals: Vital Signs - 24 hr 12/27/21 12/27/21 12/27/21 09:44 11:19 13:40 Temperature 36.1 C L Heart Rate 96 90 94 Respiratory 20 19 22 Rate Blood Pressure 157/82 H 174/91 H 116/101 H O2 Saturation 97 100 98 Oxygen O2 Source [] Nasal cannula O2 Source [] Room air O2 Source Room air - EKG (time done) 0959 Rate: Rate (enter#) (91) Rhythm: Atrial fibrillation Intervals: RBBB Ischemia: No: ST elevation c/w ischemia - Labs Labs: Laboratory Tests 12/27/21 12/27/21 10:08 10:08 WBC 4.9 RBC 3.59 L Hgb 9.8 L Hct 32.4 L MCV 90.3 MCH 27.3 MCHC 30.2 L RDW 19.2 H Plt Count 234 MPV 9.2 Neut # (Auto) 3.9 Lymph # (Auto) 0.5 L Dickens # (Auto) 0.4 Eos # (Auto) 0.1 Baso # (Auto) 0.0 Absolute Nucleated RBC 0.00 Nucleated RBC % 0.0 Sodium 140 Potassium 3.9 Chloride 102 Carbon Dioxide 31 Anion Gap 7.0 BUN 16 Creatinine 0.9 Estimated GFR (MDRD) 60 L Glucose 174 H Calcium 8.9 Total Bilirubin 1.5 H AST 19 ALT 15 Alkaline Phosphatase 78 Total Protein 6.6 L Albumin 3.3 Globulin 3.3 Albumin/Globulin Ratio 1.0 Lipase 29 PD MEDICAL DECISION MAKING - ED course Complexity details: reviewed results, re-evaluated patient, d/w patient, d/w family ED course: Patient presenting for evaluation of hypoglycemia. Per her who was at the bedside she did have dinner last night. She just resumed her oral diabetic medications yesterday.Patient appears to be mentating at her baseline with no further complaints. No focal deficits to suggest stroke. Labs without significant findings. Patient was able to tolerate p.o. and blood sugar did not lower again. Discussed holding her Glimepiride until she sees her PCP with an already scheduled appointment on January 01. Patient was also seen by social work as she has had several ED visits this month to see what other assistance patient and may need at home. Per social work, she will help him with getting Meals on Wheels established which should start early next week. Per the paramedics there is food in the home consisting of TV dinners in the home and is kept well. Patient and comfortable with plan for discharge and advised on concerning symptoms to return for. Departure - Departure Disposition: , Self Care Clinical Impression: Hypoglycemia Condition: Stable Instructions: ED Diabetes Hypoglycemia Oral Agent Comments: You were found to have low blood sugar. It could be related to one of your medications. Please hold your glimepiride until you are seen for your follow-up appointment next week on January 01. Continue taking your metformin. Make sure to eat 3 proper meals through the day and snacks as needed. Social work has also seen you and given you additional resources for help at home including Meals on Wheels. If you have any new or concerning symptoms please return to the emergency department. Discharge Date/Time: 12/27/21 13:47
[2021-12-27 13:41] VITALS: BP 116/101
== END 2021-12-27 13:47 | disposition home or self-care (01) ==
LOC: EDUNIT# → ED 09:30
DX: E11.649 Type 2 diabetes mellitus with hypoglycemia without coma (principal); Z79.84 Long term (current) use of oral hypoglycemic drugs
CPT/HCPCS: 36415; 80053; 83690; 85025; 93005; 99283; 99284

== ENCOUNTER 2022-01-05 23:15 | Outpatient (CLI) | payer MEDICARE, OTHER | END 2022-01-05 23:16 | disposition critical access hospital (66) | LOC: EMS 23:15 | DX: M54.2 Cervicalgia (principal); R29.6 Repeated falls; W18.39XA Other fall on same level, initial encounter; Y92.000 Kitchen of unspecified non-institutional (private) residence as the place of occurrence of the external cause; Z79.01 Long term (current) use of anticoagulants | CPT/HCPCS: A0425; A0429 ==

== ENCOUNTER 2022-01-06 14:11 | Outpatient (CLI) | payer MEDICARE, OTHER | END 2022-01-06 14:12 | disposition critical access hospital (66) | LOC: EMS 14:11 | DX: R20.0 Anesthesia of skin (principal); R53.1 Weakness; R68.84 Jaw pain | CPT/HCPCS: A0425; A0429 ==

== ENCOUNTER 2022-01-06 14:26 | Emergency (ER) | payer MEDICARE, OTHER ==
--- NOTE | 2022-01-06 14:37 | ED Physician Documentation ---
PD HPI FOCAL NEURO - Stated complaint Stated Complaint: LT SIDE WEAKNESS - History obtained from History obtained from: Patient - History of Present Illness Timing - onset: Today Severity of deficit: Moderate Weakness: Face, Arm, Hand, Leg, Foot, Left Numbness: No: Face, Arm, Hand, Leg, Foot, Right, Left Contributing factors: positive: Anticoagulated Baseline status: positive: A&OX3, ambulatory, indep - Additional information Additional information: Patient is an 81-year-old female who presents to the emergency department left- sided weakness. This started earlier today. Unclear initial time of onset but apparently the fire department was at the house about 3 hours prior to arrival and she did not have it at that time. EMS arrived on scene and her symptoms have fully resolved. She did not have any word finding difficulties. She did suffer a ground-level fall last night and was seen here. Had a negative head CT and cervical spine CT. She is on Eliquis. Nothing makes it better or worse. She states she has not had stroke symptoms before. Did not have any numbness or tingling. 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 MANAGER: Breast cancer : 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 HEENT: None Psych: None Musculoskeletal: Osteoarthritis Derm: None - Past Surgical History Past Surgical History: Yes General: Colonoscopy, EGD Ortho: Hip replacement, Spine surgery /RENEWALS MANAGER: Hysterectomy, Other HEENT: Cataracts - Present Medications Home Medications: Ambulatory Orders Medication Instructions Recorded Confirmed Terazosin [Hytrin] 5 mg PO BID 08/11/12 07/31/20 Multivitamin [Multivitamins] 1 each PO DAILY 10/06/12 07/31/20 Potassium Chloride [Micro-K] 20 meq PO BIDWM 10/06/12 07/31/20 Oxybutynin Chloride [Ditropan Xl] 15 mg PO DAILY PM 10/23/17 07/31/20 Apixaban [Eliquis] 5 mg BID 02/22/19 07/31/20 metFORMIN [Glucophage] 250 mg PO BID 02/22/19 07/31/20 Furosemide [Lasix] 40 mg PO DAILY #10 tablet 07/02/19 07/31/20 Ferrous Gluconate [Iron] 240 mg PO DAILY 11/24/19 07/31/20 Atorvastatin [Lipitor] 20 mg PO DAILY PM 06/20/20 07/31/20 Carvedilol [Coreg] 25 mg PO BID 06/20/20 07/31/20 Levothyroxine Sodium [Synthroid] 175 mcg PO QDAC 06/20/20 07/31/20 Losartan Potassium [Cozaar] 100 mg PO DAILY PM 06/20/20 07/31/20 Amox/Clav 875/125 [Augmentin] 1 each PO Q12H #14 tablet 06/22/20 07/31/20 Magnesium Oxide [Mag Ox] 400 mg PO DAILY #10 tablet 12/04/20 Potassium Chloride [Micro-K] 10 meq PO BIDWM 10 Days #20 12/04/20 Acetaminophen [Acetaminophen Extra 500 mg PO QID PRN #50 tablet 12/12/21 Strength] Ondansetron Odt [Zofran] 4 mg TL Q6H PRN #10 tablet 12/12/21 oxyCODONE [Roxicodone] 5 mg PO Q4-6H PRN #15 tablet 12/12/21 Amox/Clav 875/125 [Augmentin] 1 each PO Q12H #14 tablet 12/26/21 Doxycycline Hyclate 100 mg PO BID #14 tab 12/26/21 - Allergies Allergies/Adverse Reactions: Allergies Allergy/AdvReac Type Severity Reaction Status Date / Time codeine [Codeine] Allergy Unknown Rash Verified 01/06/22 14:39 GLORIA Inhibitors Allergy Unknown Verified 01/06/22 14:39 iodine Allergy Unknown Verified 01/06/22 14:39 tramadol Allergy Unknown Verified 01/06/22 14:39 shellfish derived AdvReac Unknown Unknown Verified 01/06/22 14:39 Calcium Channel Blocking AdvReac Edema Verified 01/06/22 14:39 Agents-Dih - Social History Does the pt smoke?: No Smoking Status: Never smoker Does the pt drink ETOH?: No Does the pt have substance abuse?: No - Immunizations Immunizations are current?: Yes - POLST Patient has POLST: No POLST Status: Full Code PD ED PE NORMAL - Vitals Vital signs reviewed: Yes - General General: Alert and oriented X 3, No acute distress - HEENT HEENT: Atraumatic, PERRL, Moist mucous membranes - Neck Neck: Supple, no meningeal sign, No bony TTP - Cardiac Cardiac: RRR, Strong equal pulses - Respiratory Respiratory: No respiratory distress, Clear bilaterally - Abdomen Abdomen: Soft, Non tender, Non distended - Derm Derm: Warm and dry - Neuro Neuro: Alert and oriented X 3 - Psych Psych: Normal mood, Normal affect NIHSS - Time Time: 14:30 - Level of Consciousness Level of consciousness: (0) Alert, Keenly responsive LOC Questions: (0) Answers both Q's correct LOC Commands: (0) Performs both correctly - Gaze Best Gaze: (0) Normal - Visual Visual: (0) No loss - Facial Palsy Facial Palsy: (0) Normal, symmetrical movement - Motor Arms (both separate) Motor Arm (right): (0) No drift Motor Arm (left): (0) No drift - Motor Legs (both separate) Motor Leg (right): (0) No drift Motor Leg (left): (0) No drift - Limb Ataxia Limb Ataxia: (0) Absent - Sensory Sensory: (0) Normal - Best Language Best Language: (0) No aphasia - Dysarthria Dysarthria: (0) Normal - Extinction and Inattention (formally neg Extinction and inattention: (0) No abnormality - Total Score/Results Total Score/Result: 0 Results - Vitals Vitals: Vital Signs - 24 hr 01/06/22 01/06/22 01/06/22 14:36 14:43 15:09 Temperature 36.1 C L 36.5 C Heart Rate 102 H 102 H 88 Respiratory 19 19 15 Rate Blood Pressure 135/67 H 135/67 H 140/62 H O2 Saturation 99 99 95 01/06/22 01/06/22 01/06/22 15:30 17:00 18:00 Temperature 36.5 C Heart Rate 89 90 90 Respiratory 20 21 21 Rate Blood Pressure 130/95 H 146/85 H 146/85 H O2 Saturation 97 96 96 Oxygen O2 Source [With Activity] Nasal cannula O2 Source [Without Activity] Room air O2 Source Room air - Labs Labs: Laboratory Tests 01/06/22 01/06/22 01/06/22 14:34 14:34 14:34 WBC 7.7 RBC 3.57 L Hgb 9.8 L Hct 31.8 L MCV 89.1 MCH 27.5 MCHC 30.8 L RDW 18.4 H Plt Count 194 MPV 10.3 Neut # (Auto) 6.0 Lymph # (Auto) 0.8 L [place] # (Auto) 0.7 Eos # (Auto) 0.2 Baso # (Auto) 0.1 Absolute Nucleated RBC 0.00 Nucleated RBC % 0.0 PT 23.0 H INR 2.1 H APTT 30.7 Sodium 140 Potassium 2.9 L Chloride 93 L Carbon Dioxide 35 H Anion Gap 12.0 BUN 27 H Creatinine 1.1 H Estimated GFR (MDRD) 47 L Glucose 144 H Calcium 9.1 Total Bilirubin 1.5 H AST 34 ALT 21 Alkaline Phosphatase 76 Total Protein 6.8 Albumin 3.5 Globulin 3.3 Albumin/Globulin Ratio 1.1 Lipase 40 Urine Color Urine Clarity Urine pH Ur Specific [place] Urine Protein Urine Glucose (UA) Urine Ketones Urine Occult Blood Urine Nitrite Urine Bilirubin Urine Urobilinogen Ur Leukocyte Esterase Urine RBC Urine WBC Ur Squamous Epith Cells Urine Bacteria Urine Yeast Ur Microscopic Review Urine Culture Comments 01/06/22 15:22 WBC RBC Hgb Hct MCV MCH MCHC RDW Plt Count MPV Neut # (Auto) Lymph # (Auto) [place] # (Auto) Eos # (Auto) Baso # (Auto) Absolute Nucleated RBC Nucleated RBC % PT INR APTT Sodium Potassium Chloride Carbon Dioxide Anion Gap BUN Creatinine Estimated GFR (MDRD) Glucose Calcium Total Bilirubin AST ALT Alkaline Phosphatase Total Protein Albumin Globulin Albumin/Globulin Ratio Lipase Urine Color YELLOW Urine Clarity CLEAR Urine pH 7.5 Ur Specific [place] 1.010 Urine Protein NEGATIVE Urine Glucose (UA) NEGATIVE Urine Ketones NEGATIVE Urine Occult Blood TRACE-INTA Urine Nitrite NEGATIVE Urine Bilirubin NEGATIVE Urine Urobilinogen 0.2 (NORMAL) Ur Leukocyte Esterase TRACE H Urine RBC 6-10 H Urine WBC 6-10 H Ur Squamous Epith Cells MANY Squamous H Urine Bacteria Many H Urine Yeast PRESENT Ur Microscopic Review INDICATED Urine Culture Comments NOT INDICATED - Rads (name of study) CTA head Radiology: Final report received, EMP read contemporaneously, See rad report CTA neck Radiology: Final report received, EMP read contemporaneously, See rad report brain MRI wo Radiology: Final report received, EMP read contemporaneously, See rad report PD MEDICAL DECISION MAKING - ED course Complexity details: reviewed results, re-evaluated patient, considered differential, d/w patient, d/w family, d/w configuration management consultant ED course: Patient is an 81-year-old female with what appears to be a TIA today. Her MRI is without acute abnormality. CT angiogram of the head and neck do show significant stenoses bilaterally. Unclear if these are new or old. The patient is currently on Eliquis. I discussed the case with Dr. Marcial, neurology on- call, he states that we could add a baby aspirin but this would increase her fall risk. Recommends shared decision making with the patient. I discussed the findings with the patient. She does not want to have a vascular surgery consult tonight. She does not want to start on a baby aspirin. She will follow-up with her doctor for further care and further recommendations. Patient is fully asymptomatic here. No acute findings on MRI. Ambulating without difficulty with a walker. She has a wheelchair at home as well. Patient counseled regarding signs and symptoms for which I believe and urgent re- evaluation would be necessary. Patient with good understanding of and agreement to plan and is comfortable going home at this time This document was made in part using voice recognition software. While efforts are made to proofread this document, sound alike and grammatical errors may occur. Departure - Departure Disposition: 01 Home, Self Care Clinical Impression: TIA (transient ischemic attack), Hypokalemia Condition: Good Instructions: ED Potassium Deficiency, ED Transient Ischemic Attack Follow-Up: your,doctor in 1 week [Other] Elijah Gee MD [Provider Admit Priv/Credential] - Elijah Gee MD [Provider Admit Priv/Credential] - Comments: Please follow-up with your doctor for further care. It is recommended you follow-up with your doctor regarding the results of your angiogram of your head and neck as you do have significant stenosis in the bilateral carotid arteries. I spoke with neurology today about potentially starting you on additional medications, but due to your frequent falls, aspirin would likely be a medication that may increase your bleeding risk. You and I discussed this at the bedside and we will not start this. Return if you worsen. IMPRESSION: Limited exam due to suboptimal bolus timing. Possible high-grade stenosis or complete occlusion of the proximal left common carotid artery. Moderate stenosis of the brachiocephalic artery near the bifurcation. Moderate stenosis the right subclavian artery poststenotic ectatic dilatation. Long segment moderate and high-grade stenosis of the left subclavian artery beginning at the origin and extending to the level of the thoracic outlet. Moderate bilateral carotid bifurcation stenosis with moderate to severe stenosis of the ICA origins. Hypoplastic left vertebral artery. IMPRESSION: Limited exam due to poor intravascular contrast opacification. Hypoplastic left vertebral artery which appears to terminate in PICA (less likely completely occluded distal V4 segment). 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 Moderate to severe stenosis in the proximal right V4 segment due to dense atherosclerotic plaque and calcification. Calcified atherosclerotic plaque producing focal mild to moderate basilar artery stenosis. Discharge Date/Time: 01/06/22 18:28
[2022-01-06 14:46] LABS: BASOPHILS # (AUTO) 0.1 10^3/uL (0.0-0.1); BASOPHILS % (AUTO) 0.6 %; EOSINOPHILS # (AUTO) 0.2 10^3/uL (0.0-0.7); EOSINOPHILS % (AUTO) 2.3 %; HCT - HEMATOCRIT 31.8 % (37.0-47.0); HGB - HEMOGLOBIN 9.8 g/dL (12.0-16.0); LYMPHOCYTES # (AUTO) 0.8 10^3/uL (1.5-3.5); LYMPHOCYTES % (AUTO) 10.1 %; MEAN CORPUSCULAR HEMOGLOBIN 27.5 pg (27.0-31.0); MEAN CORPUSCULAR HGB CONC 30.8 g/dL (32.0-36.0); MEAN CORPUSCULAR VOLUME 89.1 fL (81.0-99.0); MEAN PLATELET VOLUME 10.3 fL (7.9-10.8); MONOCYTES # (AUTO) 0.7 10^3/uL (0.0-1.0); MONOCYTES % (AUTO) 9.1 %; NEUTROPHILS % (AUTO) 77.5 %; PLT - PLATELET COUNT 194 10^3/uL (130-450); RED BLOOD COUNT 3.57 10^6/uL (4.20-5.40); RED CELL DISTRIBUTION WIDTH 18.4 % (12.0-15.0); WHITE BLOOD COUNT 7.7 x10^3/uL (4.8-10.8)
[2022-01-06 14:58] LABS: INR 2.1 (0.8-1.2)
[2022-01-06 14:59] LABS: ALBUMIN 3.5 g/dL (3.2-5.5); ALBUMIN/GLOBULIN RATIO 1.1 (1.0-2.2); BILIRUBIN,TOTAL 1.5 mg/dL (0.2-1.0); CALCIUM 9.1 mg/dL (8.5-10.3); CREATININE 1.1 mg/dL (0.4-1.0); POTASSIUM 2.9 mmol/L (3.5-5.0); TOTAL PROTEIN 6.8 g/dL (6.7-8.2)
[2022-01-06 15:05] LABS: PARTIAL THROMBOPLASTIN TIME 30.7 secs (24.9-33.3)
--- NOTE | 2022-01-06 15:31 | CT Report ---
PROCEDURE: ANGIO HEAD W/WO INDICATIONS: L sided paralysis, now resolved CONTRAST: IV CONTRAST: Optiray 320 ml: 80 PO CONTRAST: *NO PO CONTRAST TECHNIQUE: Precontrast 4.5 mm thick angled axial sections acquired from the foramen magnum to the vertex. Afte r the administration of intravenous contrast, 1 mm thick sections acquired through the [place] of [place] is. Postcontrast 4.5 mm thick sections then re-acquired from the foramen magnum to the vertex. 3-di mensional xkwejdo-tbmakyorh-iddrbgxbzm (MIP) and/or volume rendering reformats were acquired of the c entral intracranial vasculature. For radiation dose reduction, the following was used: automated ex posure control, adjustment of mA and/or kV according to patient size. COMPARISON: Head CT 12/27/2021 FINDINGS: Image quality: Highly limited due to suboptimal bolus timing. There is poor intravascular opacificati on. Anterior circulation: Dense atherosclerotic calcifications in the distal internal carotid arteries an d carotid siphons as well as the terminal intracranial portions of the internal carotid arteries. Thi s produces uphl-pc-tgsvzikm narrowing without definite hemodynamically significant stenosis (evaluati on limited by the poor intravascular opacification and dense nature of the atherosclerotic calcificat ions). Posterior circulation: Diminished left vertebral artery opacification in the head and neck with multi ple areas of calcified atherosclerotic plaque producing at least moderate narrowing and an overall ta ndem stenotic effect is suspected. There is complete loss of left vertebral artery opacification in t he mid V4 segment. It is unknown if this represents a complete occlusion or congenital termination of the left V4 segment in PICA. The right V4 segment is moderately to severely narrowed in the proximal intracranial portion secondary to dense atherosclerotic calcifications. These produce at least a 70% stenosis and possibly a high-grade stenosis (evaluation limited by the density of the calcifications ). Mild narrowing of the basilar artery less than 50% secondary to a calcified atherosclerotic plaque on series 2 image 202. Proximal segments of the posterior cerebral arteries are widely patent. Persi stent origin of the left posterior cerebral artery. Right posterior communicating artery is pat ent. Brain: No abnormal extra axial fluid collection, mass effect, or midline shift. Encephalomalacia and gliosis in the anterior right frontal lobe related to remote infarct, similar to comparison exam. No acute intracranial hemorrhage. Normal ventricular caliber and position. Basilar cisterns patent. Cortes -white matter differentiation is grossly maintained, without CT evidence of an acute large territory infarct. Skull and face: Calvarium and facial bones appear intact, without suspicious lesions. Sinuses: Visualized sinuses and mastoids are clear. IMPRESSION: Limited exam due to poor intravascular contrast opacification. Hypoplastic left vertebral artery which appears to terminate in PICA (less likely completely occluded distal V4 segment). 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 Moderate to severe stenosis in the proximal right V4 segment due to dense atherosclerotic plaque and calcification. Calcified atherosclerotic plaque producing focal mild to moderate basilar artery stenosis. Reviewed by: Dariel Rasheed MD on 01/06/2022 3:29 PM PDT Approved by: Dariel Rasheed MD on 01/06/2022 3:29 PM PDT Station ID: [id number]
[2022-01-06 15:40] LABS: BILIRUBIN,URINE NEGATIVE (NEGATIVE); GLUCOSE, URINE (UA) NEGATIVE (NEGATIVE); KETONES,URINE (UA) NEGATIVE (NEGATIVE); LEUKOCYTE ESTERASE, URINE TRACE (NEGATIVE); NITRITE,URINE NEGATIVE (NEGATIVE); OCCULT BLOOD,URINE TRACE-INTA (NEGATIVE); PH,URINE 7.5 PH (5.0-7.5); PROTEIN,URINE NEGATIVE (NEGATIVE); UROBILINOGEN,URINE 0.2 (NORMAL) E.U./dL (NORMAL)
[2022-01-06] MEDS ORDERED: POTASSIUM CHLORIDE 20 MEQ TABLET PO STA (15:43)
--- NOTE | 2022-01-06 15:45 | CT Report ---
PROCEDURE: ANGIO NECK W INDICATIONS: L sided paralysis, now resolved CONTRAST: IV CONTRAST: Optiray 320 ml: 80 PO CONTRAST: *NO PO CONTRAST TECHNIQUE: After the administration of intravenous contrast, 1.5 mm axial sections acquired from the aortic arch to the [place] of [place]. Coronal 3-D maximum intensity projection (MIP) and/or volume rendering ref ormats were then performed. For radiation dose reduction, the following was used: automated exposur e control, adjustment of mA and/or kV according to patient size. COMPARISON: None. FINDINGS: Image quality: Excellent. Streak artifact from contrast in the left neck base and thoracic inlet limits evaluation of the left common carotid artery origin. Within this limitation there does appear to be a high-grade stenosis or perhaps short segment complete occlusion of the proximal left CCA. There is moderate to high-grade s tenosis of the brachiocephalic artery near the bifurcation with extension of the atherosclerotic plaq ue and calcification into the origin of the right subclavian artery producing moderate stenosis with a poststenotic ectatic dilatation noted. Long segment left subclavian artery stenosis, moderate to high-grade at the origin and moderate grade in the remainder of the proximal left subclavian artery segment. Moderate to high-grade stenosis of the bilateral vertebral artery origins with distal reconstitution. Hypoplastic left vertebral artery. The more superior portions of the vertebral arteries demonstrate normal course and caliber. They jovita in to form a normal appearing basilar artery. Soft tissues: Visualized neck soft tissues demonstrate no suspicious abnormalities. The thyroid is normal in size and there are no incidental findings. Bones: No suspicious bony lesions. Visualized cervical spine appears normally aligned. IMPRESSION: Limited exam due to suboptimal bolus timing. Possible high-grade stenosis or complete occlusion of the proximal left common carotid artery. Moderate stenosis of the brachiocephalic artery near the bifurcation. Moderate stenosis the right subclavian artery poststenotic ectatic dilatation. Long segment moderate and high-grade stenosis of the left subclavian artery beginning at the origin a nd extending to the level of the thoracic outlet. Moderate bilateral carotid bifurcation stenosis with moderate to severe stenosis of the ICA origins. Hypoplastic left vertebral artery. Reviewed by: Dariel Rasheed MD on 01/06/2022 3:43 PM PDT Approved by: Dariel Rasheed MD on 01/06/2022 3:43 PM PDT Station ID: [id number]
[2022-01-06] MEDS ORDERED: iohexoL-300 100 ML VIAL IVP ONE (15:46)
[2022-01-06 15:54] LABS: CLARITY,URINE CLEAR (CLEAR)
[2022-01-06] MEDS ORDERED: iohexoL-300 100 ML VIAL ONE (15:57)
[2022-01-06 16:00] LABS: BACTERIA,URINE Many /HPF (None Seen); SQUAMOUS EPITHELIAL CELL,UR MANY Squamous (<= Few)
[2022-01-06 16:01] LABS: YEAST,URINE PRESENT
--- NOTE | 2022-01-06 17:06 | MRI Report ---
PROCEDURE: Brain W/O INDICATIONS: L sided paralysis, now resolved TECHNIQUE: Noncontrast axial T1 spin echo, axial T2 fast spin echo, sagittal and axial FLAIR, coronal T2 fast sp in echo, axial gradient echo, axial diffusion and ADC through the brain. COMPARISON: Head CT 01/05/2022 and 12/27/2021 FINDINGS: No restricted diffusion to indicate recent ischemia. The major intracranial vascular flow-related sig nal voids are maintained. There is moderate global cerebral volume loss with severe chronic micro-vas cular ischemic change. Encephalomalacia and gliosis in the right frontal lobe related to remote infar ct, unchanged from prior exams. No mass effect or midline shift. Midline structures are normal in con figuration. No unexpected intracranial susceptibility. No gross orbital abnormality. Paranasal sinuse s and mastoid air cells are clear. IMPRESSION: No acute infarct or other acute intracranial abnormality. Advanced global cerebral volume loss and severe chronic microvascular ischemic change, similar to the prior study. Remote right frontal infarct redemonstrated. Reviewed by: Dariel Rasheed MD on 01/06/2022 5:05 PM PDT Approved by: Dariel Rasheed MD on 01/06/2022 5:05 PM PDT Station ID: [id number]
[2022-01-06 17:23] VITALS: BP 146/85
== END 2022-01-06 18:28 | disposition home or self-care (01) ==
LOC: EDUNIT# → ED 14:26
DX: G45.9 Transient cerebral ischemic attack, unspecified (principal); E87.6 Hypokalemia; I48.91 Unspecified atrial fibrillation; Z79.01 Long term (current) use of anticoagulants; I10 Essential (primary) hypertension; E11.9 Type 2 diabetes mellitus without complications; Z79.84 Long term (current) use of oral hypoglycemic drugs
CPT/HCPCS: 36415; 70496; 70498; 70551; 80053; 81001; 83690; 85025; 85610; 85730; 93005; 99283; 99284; A9270; Q9967; 81003; 87086

== ENCOUNTER 2022-01-06 23:29 | Outpatient (CLI) | payer MEDICARE, OTHER | END 2022-01-06 23:30 | disposition critical access hospital (66) | LOC: EMS 23:29 | DX: I95.1 Orthostatic hypotension (principal); R29.6 Repeated falls; R42 Dizziness and giddiness; R23.1 Pallor; R41.89 Other symptoms and signs involving cognitive functions and awareness | CPT/HCPCS: A0425; A0427 ==

== ENCOUNTER 2022-01-06 23:48 | Emergency (ER) | payer MEDICARE, OTHER ==
[2022-01-06] MEDS ORDERED: SODIUM CHLORIDE 0.9% 1,000 ML IV ONE (23:59)
[2022-01-07 00:09] LABS: BASOPHILS % (AUTO) 0.5 %; EOSINOPHILS # (AUTO) 0.1 10^3/uL (0.0-0.7); HGB - HEMOGLOBIN 9.8 g/dL (12.0-16.0); LYMPHOCYTES # (AUTO) 0.7 10^3/uL (1.5-3.5); LYMPHOCYTES % (AUTO) 10.5 %; MEAN CORPUSCULAR HEMOGLOBIN 27.4 pg (27.0-31.0); MEAN CORPUSCULAR HGB CONC 30.6 g/dL (32.0-36.0); MEAN CORPUSCULAR VOLUME 89.4 fL (81.0-99.0); MEAN PLATELET VOLUME 10.1 fL (7.9-10.8); MONOCYTES # (AUTO) 0.5 10^3/uL (0.0-1.0); MONOCYTES % (AUTO) 7.2 %; NEUTROPHILS # (AUTO) 5.1 10^3/uL (1.5-6.6); NEUTROPHILS % (AUTO) 79.5 %; PLT - PLATELET COUNT 190 10^3/uL (130-450); RED BLOOD COUNT 3.58 10^6/uL (4.20-5.40); RED CELL DISTRIBUTION WIDTH 18.6 % (12.0-15.0); WHITE BLOOD COUNT 6.4 x10^3/uL (4.8-10.8)
[2022-01-07 00:16] LABS: INR 2.3 (0.8-1.2); PT - PROTHROMBIN TIME 24.1 secs (9.9-12.6)
[2022-01-07 00:21] LABS: ALBUMIN 3.6 g/dL (3.2-5.5); ALBUMIN/GLOBULIN RATIO 1.1 (1.0-2.2); BILIRUBIN,TOTAL 1.7 mg/dL (0.2-1.0); CALCIUM 8.8 mg/dL (8.5-10.3); CREATININE 1.1 mg/dL (0.4-1.0); POTASSIUM 3.4 mmol/L (3.5-5.0)
--- NOTE | 2022-01-07 00:42 | CT Report ---
PROCEDURE: HEAD WO INDICATIONS: GLF, DEMENTIA TECHNIQUE: Noncontrast 4.5 mm thick angled axial sections acquired from the foramen magnum to the vertex. For r adiation dose reduction, the following was used: automated exposure control, adjustment of mA and/or kV according to patient size. COMPARISON: None. FINDINGS: Image quality: Excellent. CSF spaces: There is mild to moderate cerebral volume loss with prominence of the ventricles and sul ci. Basal cisterns are patent. No extra-axial fluid collections. Brain: No intracranial hemorrhage, mass, or mass effect. There is a small region of Ancef malacia wi thin the right frontal lobe consistent with sequelae of prior infarct. Cortes-white matter interface is otherwise preserved. There are subcortical and periventricular white matter hypodensities consistent with mild to moderate chronic small vessel ischemic changes. Skull and face: Calvarium and visualized facial bones are intact, without suspicious lesions. Sinuses: Visualized sinuses and mastoids are clear. IMPRESSION: 1. No acute intracranial abnormality. 2. Mild to moderate cerebral volume loss and chronic white matter small vessel ischemic changes. A sm all region of encephalomalacia is also noted in the right frontal lobe consistent with prior infarct. Reviewed by: Keith Barreto MD on 01/07/2022 12:41 AM PDT Approved by: Keith Barreto MD on 01/07/2022 12:41 AM PDT Station ID: [id number]
--- NOTE | 2022-01-07 00:52 | CT Report ---
PROCEDURE: CERVICAL SPINE WO INDICATIONS: GLF, DEMENTIA TECHNIQUE: Noncontrast 3 mm thick sections acquired from the skull base to the T4 level. Sagittal and coronal r eformats were then constructed. For radiation dose reduction, the following was used: automated exp osure control, adjustment of mA and/or kV according to patient size. COMPARISON: None. FINDINGS: Image quality: Excellent. Bones: No fractures or subluxation. There is straightening of the cervical lordosis. Multilevel deg enerative disc disease and facet joint arthropathy are present. Visualized superior ribs are intact. Soft tissues: Prevertebral soft tissues are normal in thickness. No paravertebral hematomas. No ap ical pneumothoraces. IMPRESSION: 1. No acute fracture or subluxation. Reviewed by: Keith Barreto MD on 01/07/2022 12:51 AM PDT Approved by: Keith Barreto MD on 01/07/2022 12:51 AM PDT Station ID: [id number]
--- NOTE | 2022-01-07 01:56 | ED Physician Documentation ---
History of Present Illness - Stated complaint Stated Complaint: FELL, DEMENTIA - Chief complaint Chief Complaint: General - History obtained from History obtained from: EMS - History of Present Illness Timing: Prior to arrival - Additonal information Additional information: 81-year-old female with history of A. fib on Eliquis presents by EMS from home for a ground-level fall. Patient was attempting to get out of bed to use the restroom when she fell, landing on the ground. When EMS arrived the patient was laying prone on the ground. Endorsing neck and jaw pain. Of note, this is the patient's third visit in 2 days. Yesterday she was seen for a fall and this morning she was seen for possible left-sided weakness. Per previous reports the patient's has been strongly advised that the patient would likely need to be placed in an assisted facility for care she has had numerous falls over the last few months, however patient has not been to see her primary care physician for this matter. Review of Systems Ten Systems: 10 systems reviewed and negative Constitutional: denies: Fever, Chills, Myalgias Ears: denies: Loss of hearing, Ear pain, Drainage/discharge GI: denies: Abdominal Pain, Nausea, Vomiting Skin: reports: Other (bruising). 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 : 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 HEENT: None Psych: None Musculoskeletal: Osteoarthritis Derm: None - Past Surgical History Past Surgical History: Yes General: Colonoscopy, EGD Ortho: Hip replacement, Spine surgery /CLOTHING SUPERVISOR: Hysterectomy, Other HEENT: Cataracts - Present Medications Home Medications: Ambulatory Orders Medication Instructions Recorded Confirmed Terazosin [Hytrin] 5 mg PO BID 08/11/12 01/07/22 Multivitamin [Multivitamins] 1 each PO DAILY 10/06/12 01/07/22 Potassium Chloride [Micro-K] 20 meq PO BIDWM 10/06/12 01/07/22 Oxybutynin Chloride [Ditropan Xl] 15 mg PO DAILY PM 10/23/17 01/07/22 Apixaban [Eliquis] 5 mg BID 02/22/19 01/07/22 metFORMIN [Glucophage] 250 mg PO BID 02/22/19 01/07/22 Furosemide [Lasix] 40 mg PO DAILY #10 tablet 07/02/19 01/07/22 Ferrous Gluconate [Iron] 240 mg PO DAILY 11/24/19 01/07/22 Atorvastatin [Lipitor] 20 mg PO DAILY PM 06/20/20 01/07/22 Carvedilol [Coreg] 25 mg PO BID 06/20/20 01/07/22 Levothyroxine Sodium [Synthroid] 175 mcg PO QDAC 06/20/20 01/07/22 Losartan Potassium [Cozaar] 100 mg PO DAILY PM 06/20/20 01/07/22 Amox/Clav 875/125 [Augmentin] 1 each PO Q12H #14 tablet 06/22/20 01/07/22 Magnesium Oxide [Mag Ox] 400 mg PO DAILY #10 tablet 12/04/20 01/07/22 Potassium Chloride [Micro-K] 10 meq PO BIDWM 10 Days #20 12/04/20 01/07/22 Acetaminophen [Acetaminophen Extra 500 mg PO QID PRN #50 tablet 12/12/21 01/07/22 Strength] Ondansetron Odt [Zofran] 4 mg TL Q6H PRN #10 tablet 12/12/21 01/07/22 oxyCODONE [Roxicodone] 5 mg PO Q4-6H PRN #15 tablet 12/12/21 01/07/22 Amox/Clav 875/125 [Augmentin] 1 each PO Q12H #14 tablet 12/26/21 01/07/22 Doxycycline Hyclate 100 mg PO BID #14 tab 12/26/21 01/07/22 - Allergies Allergies/Adverse Reactions: Allergies Allergy/AdvReac Type Severity Reaction Status Date / Time codeine [Codeine] Allergy Unknown Rash Verified 01/06/22 23:57 GLROIA Inhibitors Allergy Unknown Verified 01/06/22 23:57 iodine Allergy Unknown Verified 01/06/22 23:57 tramadol Allergy Unknown Verified 01/06/22 23:57 shellfish derived AdvReac Unknown Unknown Verified 01/06/22 23:57 Calcium Channel Blocking AdvReac Edema Verified 01/06/22 23:57 Agents-Dih - Social History Does the pt smoke?: No Smoking Status: Never smoker Does the pt drink ETOH?: No Does the pt have substance abuse?: No - Immunizations Immunizations are current?: Yes - POLST Patient has POLST: No POLST Status: Full Code PD ED PE NORMAL - Vitals Vital signs reviewed: Yes - General General: No acute distress, Other (frail, AOx2, repetitive questioning) - HEENT HEENT: PERRL, EOMI, Other (healing bruising on mandible) - Cardiac Cardiac: Strong equal pulses, Other (irregularly irregular) - Respiratory Respiratory: No respiratory distress, Clear bilaterally - Abdomen Abdomen: Soft, Non tender, Non distended - Derm Derm: Normal color, Warm and dry, No rash - Extremities Extremities: No deformity, No edema - 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, Normal speech Results - Vitals Vitals: Vital Signs - 24 hr 01/06/22 01/07/22 23:57 01:06 Temperature 36.9 C Heart Rate 100 98 Respiratory 19 20 Rate Blood Pressure 150/100 H 139/76 H O2 Saturation 98 100 Oxygen O2 Source [With Activity] Nasal cannula O2 Source [Without Activity] Room air O2 Source Room air - Labs Labs: Laboratory Tests 01/07/22 01/07/22 01/07/22 00:01 00:01 00:01 WBC 6.4 RBC 3.58 L Hgb 9.8 L Hct 32.0 L MCV 89.4 MCH 27.4 MCHC 30.6 L RDW 18.6 H Plt Count 190 MPV 10.1 Neut # (Auto) 5.1 Lymph # (Auto) 0.7 L Buchanan # (Auto) 0.5 Eos # (Auto) 0.1 Baso # (Auto) 0.0 Absolute Nucleated RBC 0.00 Nucleated RBC % 0.0 PT 24.1 H INR 2.3 H Sodium 137 Potassium 3.4 L Chloride 91 L Carbon Dioxide 34 H Anion Gap 12.0 BUN 27 H Creatinine 1.1 H Estimated GFR (MDRD) 47 L Glucose 187 H Calcium 8.8 Total Bilirubin 1.7 H AST 35 ALT 21 Alkaline Phosphatase 81 Total Protein 7.0 Albumin 3.6 Globulin 3.4 Albumin/Globulin Ratio 1.1 PD MEDICAL DECISION MAKING - ED course Complexity details: reviewed old records, reviewed results, re-evaluated patient, considered differential, d/w patient, d/w family ED course: Patient with recurrent falls, this is patient's second fall in his many days and third visit in 2 days. Patient lives with at home, who does not seem to be adequately able to care for patient in her current condition. CT imaging negative for acute findings, labs were reviewed. At this time I do not feel that this patient is safe to go home until further evaluation and discharge planning has been done. We will keep patient overnight and will consult social work to evaluate her in the morning. Departure - Departure Disposition: ED Place in Observation Clinical Impression: Fall, Atrial fibrillation, Generalized weakness Condition: Stable
[2022-01-07 02:02] LABS: BILIRUBIN,URINE NEGATIVE (NEGATIVE); GLUCOSE, URINE (UA) NEGATIVE (NEGATIVE); KETONES,URINE (UA) NEGATIVE (NEGATIVE); LEUKOCYTE ESTERASE, URINE NEGATIVE (NEGATIVE); NITRITE,URINE NEGATIVE (NEGATIVE); OCCULT BLOOD,URINE NEGATIVE (NEGATIVE); PH,URINE 7.5 PH (5.0-7.5); PROTEIN,URINE NEGATIVE (NEGATIVE); UROBILINOGEN,URINE 0.2 (NORMAL) E.U./dL (NORMAL)
[2022-01-07 02:15] LABS: BACTERIA,URINE None Seen /HPF (None Seen); CLARITY,URINE CLEAR (CLEAR); RBC,URINE None Seen /HPF (0-5); SQUAMOUS EPITHELIAL CELL,UR RARE Squamous (<= Few); WBC,URINE 0-3 /HPF (0-5)
[2022-01-07] MEDS ORDERED: ACETAMINOPHEN 500 MG TABLET PO STA (02:43)
--- NOTE | 2022-01-07 11:57 | ED Physician Documentation ---
ED Addendum - Addendum Addendum: 01/07/22 11:56 Seen by social work. Patient and declined any placement other than discharge home even though it has been discussed with him that we do not think that her current living situation is stable and safe. Social work is filing an APS report. Disposition: Discharge home Condition: Guarded but stable
[2022-01-07 12:03] VITALS: BP 135/68
== END 2022-01-07 13:01 | disposition home or self-care (01) ==
LOC: EDUNIT# → ED 23:48
DX: S19.9XXA Unspecified injury of neck, initial encounter (principal); W18.30XA Fall on same level, unspecified, initial encounter; R68.84 Jaw pain; I10 Essential (primary) hypertension; I48.91 Unspecified atrial fibrillation; Z79.01 Long term (current) use of anticoagulants; E11.9 Type 2 diabetes mellitus without complications; Z79.84 Long term (current) use of oral hypoglycemic drugs; F03.90 Unspecified dementia, unspecified severity, without behavioral disturbance, psychotic disturbance, mood disturbance, and anxiety
CPT/HCPCS: 36415; 70450; 72125; 80053; 81001; 85025; 85610; 99284; A9270; 87086

== ENCOUNTER 2022-01-07 14:27 | Outpatient (CLI) | payer MEDICARE, OTHER | END 2022-01-07 14:28 | disposition EMS.NT | LOC: EMS 14:27 | DX: Z03.89 Encounter for observation for other suspected diseases and conditions ruled out (principal) ==

== ENCOUNTER 2022-01-07 18:28 | Outpatient (CLI) | payer MEDICARE, OTHER | END 2022-01-07 18:29 | disposition critical access hospital (66) | LOC: EMS 18:28 | DX: R53.1 Weakness (principal); R20.0 Anesthesia of skin; R29.6 Repeated falls | CPT/HCPCS: A0425; A0429 ==

== ENCOUNTER 2022-01-07 18:47 | Emergency (ER) | payer MEDICARE, OTHER ==
[2022-01-07 19:30] LABS: BASOPHILS % (AUTO) 0.5 %; EOSINOPHILS # (AUTO) 0.1 10^3/uL (0.0-0.7); EOSINOPHILS % (AUTO) 1.7 %; HCT - HEMATOCRIT 30.4 % (37.0-47.0); HGB - HEMOGLOBIN 9.3 g/dL (12.0-16.0); LYMPHOCYTES # (AUTO) 0.9 10^3/uL (1.5-3.5); LYMPHOCYTES % (AUTO) 12.3 %; MEAN CORPUSCULAR HEMOGLOBIN 27.3 pg (27.0-31.0); MEAN CORPUSCULAR HGB CONC 30.6 g/dL (32.0-36.0); MEAN CORPUSCULAR VOLUME 89.1 fL (81.0-99.0); MEAN PLATELET VOLUME 10.5 fL (7.9-10.8); MONOCYTES # (AUTO) 0.6 10^3/uL (0.0-1.0); MONOCYTES % (AUTO) 7.5 %; NEUTROPHILS # (AUTO) 5.9 10^3/uL (1.5-6.6); NEUTROPHILS % (AUTO) 77.5 %; PLT - PLATELET COUNT 185 10^3/uL (130-450); RED BLOOD COUNT 3.41 10^6/uL (4.20-5.40); RED CELL DISTRIBUTION WIDTH 18.9 % (12.0-15.0); WHITE BLOOD COUNT 7.6 x10^3/uL (4.8-10.8)
[2022-01-07 19:35] LABS: INR 2.5 (0.8-1.2); PT - PROTHROMBIN TIME 25.9 secs (9.9-12.6)
[2022-01-07 19:43] LABS: ALBUMIN 3.4 g/dL (3.2-5.5); BILIRUBIN,TOTAL 1.5 mg/dL (0.2-1.0); CREATININE 1.1 mg/dL (0.4-1.0); MAGNESIUM 1.2 mg/dL (1.7-2.8); PHOSPHORUS 3.6 mg/dL (2.5-4.6); POTASSIUM 3.2 mmol/L (3.5-5.0); TOTAL PROTEIN 6.9 g/dL (6.7-8.2)
--- NOTE | 2022-01-07 20:16 | CT Report ---
PROCEDURE: HEAD WO INDICATIONS: fall, head injury, on blood thinner TECHNIQUE: Noncontrast 4.5 mm thick angled axial sections acquired from the foramen magnum to the vertex. For r adiation dose reduction, the following was used: automated exposure control, adjustment of mA and/or kV according to patient size. COMPARISON: CT from earlier same day FINDINGS: Image quality: Excellent. CSF spaces: Basal cisterns are patent. No extra-axial fluid collections. Ventricles are normal in size and shape. Brain No midline shift. No intracranial masses or hemorrhage. No mass effect. Cortes-white matter int erface is normal. There cerebral volume loss for age with resultant ventricular and sulcal prominence . Redemonstration of encephalomalacia involving the posterior right frontal lobe compatible with hannah te infarction. There are periventricular and deep white matter chronic small vessel ischemic changes. Atherosclerotic calcifications are noted in the intracranial segments of the bilateral internal mary tid arteries. . Skull and face: Calvarium and visualized facial bones are intact, without suspicious lesions. Sinuses: Visualized sinuses and mastoids are clear. IMPRESSION: CT head without acute intracranial abnormalities. Age-related senescent changes and sequela chronic small vessel ischemic disease Redemonstration of encephalomalacia of the posterior right frontal lobe consistent with remote infarc tion. Reviewed by: Chidi Christine MD on 01/07/2022 8:14 PM PDT Approved by: Chidi Christine MD on 01/07/2022 8:14 PM PDT Station ID: [id number]
--- NOTE | 2022-01-07 20:20 | CT Report ---
PROCEDURE: CERVICAL SPINE WO INDICATIONS: neck pain s/p fall TECHNIQUE: Noncontrast 3 mm thick sections acquired from the skull base to the T4 level. Sagittal and coronal r eformats were then constructed. For radiation dose reduction, the following was used: automated exp osure control, adjustment of mA and/or kV according to patient size. COMPARISON: Earlier same day. FINDINGS: Image quality: Excellent. Bones: No acute fractures or dislocations. Straightening of cervical lordosis. Craniocervical juncti on is intact. Visualized superior ribs are intact. Redemonstration of severe multilevel cervical sp ondylosis with significant bilateral bony neuroforaminal and spinal canal stenosis at C5-6. Soft tissues: Prevertebral soft tissues are normal in thickness. No paravertebral hematomas. No ap ical pneumothoraces. IMPRESSION: CT cervical spine without acute fracture or traumatic malalignment. Redemonstration of severe multilevel cervical spondylosis. Straightening of cervical lordosis likely related to positioning and/or concurrent muscle spasms. Reviewed by: Chidi Christine MD on 01/07/2022 8:19 PM PDT Approved by: Chidi Christine MD on 01/07/2022 8:19 PM PDT Station ID: [id number]
--- NOTE | 2022-01-07 20:35 | ED Physician Documentation ---
History of Present Illness - Stated complaint Stated Complaint: FALL - Chief complaint Chief Complaint: Trauma Hd/Nk - History obtained from History obtained from: Patient, EMS - History of Present Illness Timing: Today Pain level max: 6 Pain level now: 3 - Additonal information Additional information: Patient is an 81-year-old female brought in by EMS after a fall today. This is her fourth emergency department visit in 4 days. 3 have been for falls, one was for strokelike symptoms. She is complaining of neck pain. Worse with movement, better with rest. Apparently she is quite unsteady on her feet. No loss of consciousness. She is on blood thinners. She has no hip pain. No headache. Did strike her head when she fell. Review of Systems Ten Systems: 10 systems reviewed and negative Constitutional: denies: Fever, Chills Ears: denies: Ear pain Nose: denies: Rhinorrhea / runny nose, Congestion Cardiac: denies: Chest pain / pressure Respiratory: denies: Dyspnea, Cough GI: denies: Abdominal Pain, Nausea, Vomiting, Diarrhea Skin: denies: Rash Musculoskeletal: denies: Back pain Neurologic: reports: Generalized weakness. 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: Breast cancer : 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 HEENT: None Psych: None Musculoskeletal: Osteoarthritis Derm: None - Past Surgical History Past Surgical History: Yes General: Colonoscopy, EGD Ortho: Hip replacement, Spine surgery /PUTTER IN: Hysterectomy, Other HEENT: Cataracts - Present Medications Home Medications: Ambulatory Orders Medication Instructions Recorded Confirmed Terazosin [Hytrin] 5 mg PO BID 08/11/12 01/07/22 Multivitamin [Multivitamins] 1 each PO DAILY 10/06/12 01/07/22 Potassium Chloride [Micro-K] 20 meq PO BIDWM 10/06/12 01/07/22 Oxybutynin Chloride [Ditropan Xl] 15 mg PO DAILY PM 10/23/17 01/07/22 Apixaban [Eliquis] 5 mg BID 02/22/19 01/07/22 metFORMIN [Glucophage] 250 mg PO BID 02/22/19 01/07/22 Furosemide [Lasix] 40 mg PO DAILY #10 tablet 07/02/19 01/07/22 Ferrous Gluconate [Iron] 240 mg PO DAILY 11/24/19 01/07/22 Atorvastatin [Lipitor] 20 mg PO DAILY PM 06/20/20 01/07/22 Carvedilol [Coreg] 25 mg PO BID 06/20/20 01/07/22 Levothyroxine Sodium [Synthroid] 175 mcg PO QDAC 06/20/20 01/07/22 Losartan Potassium [Cozaar] 100 mg PO DAILY PM 06/20/20 01/07/22 Amox/Clav 875/125 [Augmentin] 1 each PO Q12H #14 tablet 06/22/20 01/07/22 Magnesium Oxide [Mag Ox] 400 mg PO DAILY #10 tablet 12/04/20 01/07/22 Potassium Chloride [Micro-K] 10 meq PO BIDWM 10 Days #20 12/04/20 01/07/22 Acetaminophen [Acetaminophen Extra 500 mg PO QID PRN #50 tablet 12/12/21 01/07/22 Strength] Ondansetron Odt [Zofran] 4 mg TL Q6H PRN #10 tablet 12/12/21 01/07/22 oxyCODONE [Roxicodone] 5 mg PO Q4-6H PRN #15 tablet 12/12/21 01/07/22 Amox/Clav 875/125 [Augmentin] 1 each PO Q12H #14 tablet 12/26/21 01/07/22 Doxycycline Hyclate 100 mg PO BID #14 tab 12/26/21 01/07/22 - Allergies Allergies/Adverse Reactions: Allergies Allergy/AdvReac Type Severity Reaction Status Date / Time codeine [Codeine] Allergy Unknown Rash Verified 01/06/22 23:57 GLORIA Inhibitors Allergy Unknown Verified 01/06/22 23:57 iodine Allergy Unknown Verified 01/06/22 23:57 tramadol Allergy Unknown Verified 01/06/22 23:57 shellfish derived AdvReac Unknown Unknown Verified 01/06/22 23:57 Calcium Channel Blocking AdvReac Edema Verified 01/06/22 23:57 Agents-Dih - Social History Does the pt smoke?: No Smoking Status: Never smoker Does the pt drink ETOH?: No Does the pt have substance abuse?: No - Immunizations Immunizations are current?: Yes - POLST Patient has POLST: No POLST Status: Full Code PD ED PE NORMAL - Vitals Vital signs reviewed: Yes - General General: Alert and oriented X 3, No acute distress, Well developed/nourished - HEENT HEENT: Atraumatic, PERRL, Ears normal, Moist mucous membranes, Other (Ecchymosis to the sob mandibular area. This has been ongoing for the past several days. No difficulty speaking or breathing.) - Neck Neck: Supple, no meningeal sign, Other (Mild upper C-spine tenderness to palpation. 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, No motor deficit, No sensory deficit, Normal speech Eye Opening: Spontaneous Motor: Obeys Commands Verbal: Oriented GCS Score: 15 - Psych Psych: Normal mood, Normal affect Results - Vitals Vitals: Vital Signs - 24 hr 01/07/22 01/07/22 01/07/22 18:52 19:25 19:30 Temperature 37.1 C Heart Rate 99 97 95 Respiratory 17 17 16 Rate Blood Pressure 183/92 H 180/90 H 162/99 H O2 Saturation 99 99 99 01/07/22 01/07/22 01/07/22 20:00 20:30 21:00 Temperature Heart Rate 80 99 87 Respiratory 16 16 15 Rate Blood Pressure 153/90 H 153/99 H 151/69 H O2 Saturation 95 98 97 01/07/22 21:30 Temperature Heart Rate 82 Respiratory 15 Rate Blood Pressure 163/75 H O2 Saturation 100 Oxygen O2 Source [] Nasal cannula O2 Source [] Room air O2 Source Room air - EKG (time done) 2131 Rate: Rate (enter#) (93) Rhythm: NSR Intervals: RBBB Compare to prior EKG: Unchanged from prior EKG - Labs Labs: Laboratory Tests 01/07/22 01/07/22 01/07/22 19:21 19:21 19:21 WBC 7.6 RBC 3.41 L Hgb 9.3 L Hct 30.4 L MCV 89.1 MCH 27.3 MCHC 30.6 L RDW 18.9 H Plt Count 185 MPV 10.5 Neut # (Auto) 5.9 Lymph # (Auto) 0.9 L Anson # (Auto) 0.6 Eos # (Auto) 0.1 Baso # (Auto) 0.0 Absolute Nucleated RBC 0.00 Nucleated RBC % 0.0 PT 25.9 H INR 2.5 H Sodium 141 Potassium 3.2 L Chloride 96 L Carbon Dioxide 35 H Anion Gap 10.0 BUN 27 H Creatinine 1.1 H Estimated GFR (MDRD) 47 L Glucose 162 H Calcium 9.0 Phosphorus 3.6 Magnesium 1.2 L Total Bilirubin 1.5 H AST 30 ALT 20 Alkaline Phosphatase 74 Total Protein 6.9 Albumin 3.4 Globulin 3.5 Albumin/Globulin Ratio 1.0 Lipase 29 - Rads (name of study) head CT Radiology: Final report received, EMP read contemporaneously, See rad report cervical spine CT Radiology: Final report received, EMP read contemporaneously, See rad report PD MEDICAL DECISION MAKING - ED course Complexity details: reviewed old records, reviewed results, re-evaluated patient, considered differential, d/w patient, d/w family, d/w sap basis consultant ED course: 81-year-old female presents to the emergency department after a fall today. This is her fourth emergency department visit in 4 days. 3 of been for falls. She is open to the idea of going to a nursing facility for physical therapy and rehab. We will consult physical therapy in the morning and consult social work in the morning. A BNP, troponin and EKG were added at this time as she has had some dyspnea with exertion. Does have a history of CHF. Chest x-ray is added as well. She is found to be hypomagnesemic, given magnesium. Also given IV fluids. IMPRESSION: CT head without acute intracranial abnormalities. Age-related senescent changes and sequela chronic small vessel ischemic disease Redemonstration of encephalomalacia of the posterior right frontal lobe consistent with remote infarction. IMPRESSION: CT cervical spine without acute fracture or traumatic malalignment. Redemonstration of severe multilevel cervical spondylosis. Straightening of cervical lordosis likely related to positioning and/or concurrent muscle spasms. Departure - Departure Clinical Impression: Multiple falls, Generalized weakness, Hypomagnesemia, Bilateral lower extremity edema CHF (congestive heart failure) Qualifiers: Heart failure type: unspecified Heart failure chronicity: chronic Qualified Code(s): I50.9 - Heart failure, unspecified Condition: Stable
[2022-01-07] MEDS ORDERED: MAGNESIUM SULFATE 2 GRAM 2 GM/50 ML BAG IV ONE (20:41)
[2022-01-07] MEDS ORDERED: SODIUM CHLORIDE 0.9% 1,000 ML IV STA (20:41)
--- NOTE | 2022-01-07 23:13 | XRAY Report ---
PROCEDURE: Chest 1 View X-Ray INDICATIONS: dyspnea TECHNIQUE: One view of the chest was acquired. COMPARISON: 12/26/2021 FINDINGS: Surgical changes and devices: None. Lungs and pleura: Is a persistent [id number] right pleural effusion which appears similar to slightly decreased compared to the prior study. There is also a decreased left pleural effusion with no definite blunting of the left costophrenic angle on the current study. A few linear areas of atele ctasis are also demonstrated in the right lung base. There is interval resolution of the left basilar retrocardiac opacities seen on the prior study. There are peripheral calcifications in the left april thorax laterally which are unchanged compared to prior study. Mediastinum: Mediastinal contours appear normal. Heart size is normal. Bones and chest wall: No suspicious bony lesions. Overlying soft tissues appear unremarkable. IMPRESSION: 1. Persistent moderate right pleural effusion with right basilar consolidation or atelectasis. Reviewed by: Keith Barreto MD on 01/07/2022 11:12 PM PDT Approved by: Keith Barreto MD on 01/07/2022 11:12 PM PDT Station ID: [id number]
[2022-01-08 04:55] LABS: BILIRUBIN,URINE NEGATIVE (NEGATIVE); CLARITY,URINE CLEAR (CLEAR); GLUCOSE, URINE (UA) NEGATIVE (NEGATIVE); KETONES,URINE (UA) NEGATIVE (NEGATIVE); LEUKOCYTE ESTERASE, URINE NEGATIVE (NEGATIVE); NITRITE,URINE NEGATIVE (NEGATIVE); OCCULT BLOOD,URINE NEGATIVE (NEGATIVE); PH,URINE 7.5 PH (5.0-7.5); PROTEIN,URINE NEGATIVE (NEGATIVE); UROBILINOGEN,URINE 0.2 (NORMAL) E.U./dL (NORMAL)
--- NOTE | 2022-01-08 15:13 | ED Physician Documentation ---
ED Addendum - Addendum Addendum: 01/08/22 15:07 This is the sixth visit for this unfortunate lady in the past 12 days. She has had issue with weakness and falls. She has been evaluated extensively. She has a prior history of weakness and falls and at one time required admission to the hospital for hydration. Today she does not appear dehydrated she has been given fluids over the past several days. She has had evaluation with MRI of the brain to consider an to consider stroke as a cause of her symptoms and this was a negative study. She does have vascular disease in her neck and head. She has had 5 falls with 6 visits and she is on a blood thinner. She has both weakness and instability in her gait. The patient is not safe for discharge to home and we considered halfway placement on each of her visits and she was unwilling to consider this. Today she is considering this but has a funding problem. Her is not able to care for her at home and she is angry with him. We attempted testing her abilities at the beside today and found her to be profoundly weak. She wants to go home. Her is certain he will not be able to care for her. 01/08/22 15:14 The patient has a history of diabetes, PVD, CAD, HTN, s/p breast and colon CA. She has afib and is on eliquis. I considered admission to observation in the hospital as a disposition for this patient but she was able to make arrangements with the psychologist social. . 01/08/22 15:16 01/08/22 17:29 Social work was able to establish a consultation for in-home services and this has now been set up as well as outpatient follow-up. The patient is instructed not to get out of her bed without assistance.
[2022-01-08 16:41] VITALS: BP 141/83
== END 2022-01-08 17:03 | disposition home or self-care (01) ==
LOC: EDUNIT# → ED 18:47
DX: S09.90XA Unspecified injury of head, initial encounter (principal); W18.30XA Fall on same level, unspecified, initial encounter; Y92.009 Unspecified place in unspecified non-institutional (private) residence as the place of occurrence of the external cause; E83.42 Hypomagnesemia; R53.1 Weakness; R26.81 Unsteadiness on feet; Z91.81 History of falling; I11.0 Hypertensive heart disease with heart failure; I50.9 Heart failure, unspecified; I48.91 Unspecified atrial fibrillation; Z79.01 Long term (current) use of anticoagulants; I45.10 Unspecified right bundle-branch block; M47.812 Spondylosis without myelopathy or radiculopathy, cervical region; E11.51 Type 2 diabetes mellitus with diabetic peripheral angiopathy without gangrene; Z79.84 Long term (current) use of oral hypoglycemic drugs; I25.10 Atherosclerotic heart disease of native coronary artery without angina pectoris; Z85.3 Personal history of malignant neoplasm of breast; Z85.038 Personal history of other malignant neoplasm of large intestine
CPT/HCPCS: 36415; 80053; 81001; 81003; 83690; 83735; 83880; 84100; 84484; 85025; 85610; 87086; 93005; 96365; 99284

== ENCOUNTER 2022-01-09 13:08 | Outpatient (CLI) | payer MEDICARE, OTHER | END 2022-01-09 13:09 | disposition short-term general hospital (02) | LOC: EMS 13:08 | DX: R29.6 Repeated falls (principal); R53.1 Weakness; M54.2 Cervicalgia | CPT/HCPCS: A0425; A0429; A0888 ==

== ENCOUNTER 2022-04-09 14:52 | Outpatient (CLI) | payer MEDICARE, OTHER | END 2022-04-09 14:53 | disposition critical access hospital (66) | LOC: EMS 14:52 | DX: I95.1 Orthostatic hypotension (principal) | CPT/HCPCS: A0425; A0429 ==

== ENCOUNTER 2022-04-09 15:11 | Emergency (ER) | payer MEDICARE, OTHER ==
[2022-04-09] MEDS ORDERED: SODIUM CHLORIDE 0.9% 1,000 ML IV STA (15:22)
--- OUTSIDE RECORDS SUMMARY | 2022-04-09 15:28 | EXTERNAL MEDICAL SUMMARY RPT | Continuity of Care Document ---
:1940 Author Organization [facility] Address [address] [place] [address] Phone Care Team Providers Name Role Phone Roof, Jefry Unavailable Unavailable Allergies and Intolerances date description [facility] ([facility]) Encounters No information. Functional Status No information. Immunizations No information. Medications date description facility 2022-02-26 00:00 Cephalexin [facility] Problems date description facility 2022-01-09 00:[address] [facility] 2022-01-09 00:00 Fracture of fifth cervical vertebra Is [facility] 2022-01-09 00:00 Hematoma of right chest wall [facility] 2022-01-15 08:30 Localized swelling, mass and lump, [facility] 2022-02-25 00:00 Contusion of face [facility] 2022-02-26 00:00 Acute urinary tract infection [facility] 2022-03-06 00:00 Dementia [facility] 2022-03-06 00:00 Acute hip pain [facility] 2022-03-06 00:00 Injury of [facility] 2022-03-06 00:00 Fall [facility] Procedures date description facility 2022-01-29 00:00 Ultrasound of soft tissue of head and n jhonatan [facility] 2022-01-09 00:00 Computed tomography of head or brain [facility] contrast 2022-02-25 00:00 Computed tomography of head or brain [facility] contrast 2022-03-06 00:00 Computed tomography of head or brain [facility] contrast 2022-01-09 00:00 X-ray of chest, single view [facility] 2022-01-09 00:00 Computed tomography angiography of [facility] neck vessels with contrast 2022-03-06 00:00 Unilateral x-ray of hip, two views, wit h x-ray [facility] of pelvis Results/Labs test date author facility value unit interpret ation Result panel 1 (unknown) (no date[facility]) Result panel 2 (unknown) (no date) (unknown[facility]) Result panel 3 (unknown) (no date) (unknown[facility]) Result panel 4 (unknown) (no date) (unknown[facility]) Result panel 5 (unknown) (no date) (unknown[facility]) Result panel 6 (unknown) (no date) (unknown[facility]) Result panel 7 (unknown) (no date) (unknown[facility]) Result panel 8 (unknown) (no date) (unknown[facility]) Result panel 9 (unknown) (no date) (unknown[facility]) Result panel 10 (unknown) (no date) (unknown[facility]) Result panel 11 (unknown) (no date) (unknown[facility]) Result panel 12 (unknown) (no date) (unknown[facility]) Result panel 13 (unknown) (no date) (unknown[facility]) Result panel 14 (unknown) (no date) (unknown[facility]) Result panel 15 (unknown) (no date) (unknown[facility]) Result panel 16 (unknown) (no date) (unknown[facility]) Result panel 17 (unknown) (no date) (unknown[facility]) Result panel 18 (unknown) (no date) (unknown[facility]) Result panel 19 (unknown) (no date) (unknown[facility]) Result panel 20 (unknown) (no date) (unknown[facility]) Result panel 21 (unknown) (no date) (unknown[facility]) Result panel 22 (unknown) (no date) (unknown[facility]) Result panel 23 (unknown) (no date) (unknown[facility]) Result panel 24 (unknown) (no date) (unknown[facility]) Result panel 25 (unknown) (no date) (unknown[facility]) Result panel 26 (unknown) (no date) (unknown[facility]) Result panel 27 (unknown) (no date) (unknown[facility]) Result panel 28 (unknown) (no date) (unknown[facility]) Result panel 29 (unknown) (no date) (unknown[facility]) Result panel 30 (unknown) (no date) (unknown[facility]) Result panel 31 (unknown) (no date) (unknown[facility]) Result panel 32 (unknown) (no date) (unknown[facility]) Result panel 33 (unknown) (no date) (unknown[facility]) Result panel 34 (unknown) (no date) (unknown[facility]) Result panel 35 (unknown) (no date) (unknown[facility]) Result panel 36 (unknown) (no date) (unknown[facility]) Result panel 37 (unknown) (no date) (unknown[facility]) Result panel 38 (unknown) (no date) (unknown[facility]) Result panel 39 (unknown) (no date) (unknown[facility]) Result panel 40 (unknown) (no date) (unknown[facility]) Result panel 41 (unknown) (no date) (unknown[facility]) Result panel 42 (unknown) (no date) (unknown[facility]) Result panel 43 (unknown) (no date) (unknown[facility]) Result panel 44 (unknown) (no date) (unknown[facility]) Result panel 45 (unknown) (no date) (unknown[facility]) Result panel 46 (unknown) (no date) (unknown[facility]) Result panel 47 (unknown) (no (unknown) (unknown) (no value) (units (unk nown) date) unknown) (unknown) (no (unknown) (unknown) (DISH). (units (unkno wn) date) unknown) (unknown) (no (unknown) (unknown) (MIP) (units (unkno wn) date) unknown) (unknown) (no (unknown) (unknown) 01/09/22 (units (unkno wn) date) unknown) (unknown) (no (unknown) (unknown) [address] [place] [address] (units (unknown) date) unknown) (unknown) (no (unknown) (unknown) 2021. (units (unkno wn) date) unknown) (unknown) (no (unknown) (unknown) 07/25/2021. (units (unk nown) date) unknown) (unknown) (no (unknown) (unknown) 80-90% narrowing (units (unknown) date) can be seen unknown) involving both proximal internal carotid arteries. (unknown) (no (unknown) (unknown) Accession Number: (units (unknown) date) [id number] unknown) (unknown) (no (unknown) (unknown) Accession Number: (units (unknown) date) [id number] unknown) (unknown) (no (unknown) (unknown) Age/Sex: 81 / F (units (unknown) date) Date of Service: unknown) (unknown) (no (unknown) (unknown) Along the (units (unkn own) date) inferior aspect of unknown) the C5 level, there is a mildly displaced fracture (unknown) (no (unknown) (unknown) [place], [place] (units ( unknown) date) [id number] unknown) (unknown) (no (unknown) (unknown) Anatomic variant (units (unknown) date) noted of the left unknown) V4 segment largely terminating the in the (unknown) (no (unknown) (unknown) Anterior (units (unkno wn) date) circulation: unknown) Intracranial internal carotid arteries demonstrate (unknown) (no (unknown) (unknown) Any quantitative (units (unknown) date) measurements of unknown) stenosis were performed using NASCET criteria. (unknown) (no (unknown) (unknown) Approved by: (units (u nknown) date) Boris Cardona, unknown) Carole on 01/09/2022 at 14:25 (unknown) (no (unknown) (unknown) Approved by: (units (u nknown) date) Boris Cardona, unknown) Carole on 01/09/2022 at 14:41 (unknown) (no (unknown) (unknown) BRAIN: (units (unkno wn) date) unknown) (unknown) (no (unknown) (unknown) Bones: No (units (unkn own) date) suspicious bony unknown) lesions. Visualized cervical spine appears normally (unknown) (no (unknown) (unknown) Brain: No (units (unkn own) date) intracranial unknown) bleeds or masses. There is cerebral volume loss for (unknown) (no (unknown) (unknown) Brain: No midline (units (unknown) date) shift. No unknown) intracranial bleeds or masses. Cortes-white matter (unknown) (no (unknown) (unknown) C5 through (units (unk nown) date) unknown) (unknown) (no (unknown) (unknown) C7, as on series (units (unknown) date) 16 image 33. There unknown) is moderate to severe central canal (unknown) (no (unknown) (unknown) COMPARISON: (units (un known) date) [facility], unknown) CT, CT ANGIO HEAD AND NECK, 01/09/2022, 15:03. (unknown) (no (unknown) (unknown) COMPARISON: (units (un known) date) [facility], unknown) CT, CT HEAD/BRAIN WO CON, 01/09/2022, 15:03. (unknown) (no (unknown) (unknown) CSF spaces: Basal (units (unknown) date) cisterns are unknown) patent. No extra-axial fluid collections. The (unknown) (no (unknown) (unknown) CSF spaces: (units (un known) date) Ventricles are unknown) normal in size and shape. Basal cisterns are (unknown) (no (unknown) (unknown) CT Scan Report (units (unknown) date) unknown) (unknown) (no (unknown) (unknown) Carotid system: (units (unknown) date) The great vessels unknown) demonstrate a conventional anatomy as they (unknown) (no (unknown) (unknown) Correlation (units (un known) date) unknown) (unknown) (no (unknown) (unknown) : 1940 (units (unknown) date) Acct:[id number] unknown) (unknown) (no (unknown) (unknown) Dense (units (unkno wn) date) calcification can unknown) be seen involving the intracranial internal carotid (unknown) (no (unknown) (unknown) Dictated by: (units (u nknown) date) ranjith Goss M.D. on 01/09/2022 at 14:24 (unknown) (no (unknown) (unknown) Dictated by: (units (u nknown) date) ranjith Goss M.D. on 01/09/2022 at 14:26 (unknown) (no (unknown) (unknown) FINDINGS: (units (unkn own) date) unknown) (unknown) (no (unknown) (unknown) HEAD CT (units (unkno wn) date) ANGIOGRAPHY: unknown) (unknown) (no (unknown) (unknown) IMPRESSION: No (units (unknown) date) acute intracranial unknown) hemorrhage is seen. (unknown) (no (unknown) (unknown) IMPRESSION: There (units (unknown) date) is a mildly unknown) displaced cervical spine fracture involving the (unknown) (no (unknown) (unknown) INDICATIONS: fall (units (unknown) date) on thinners with unknown) neck hematoma (unknown) (no (unknown) (unknown) INDICATIONS: fall (units (unknown) date) on thinners unknown) (unknown) (no (unknown) (unknown) If it would be (units (unknown) date) helpful for unknown) clinical management decision making, please consider (unknown) (no (unknown) (unknown) Image quality: (units (unknown) date) Excellent. unknown) (unknown) (no (unknown) (unknown) [facility] (units (unknown) date) unknown) (unknown) (no (unknown) (unknown) Loc: ED (units (unkno wn) date) unknown) (unknown) (no (unknown) (unknown) [id number] (units (unk nown) date) unknown) (unknown) (no (unknown) (unknown) Moderate to (units (un known) date) severe cervical unknown) spine degenerative change can be seen, with (unknown) (no (unknown) (unknown) NECK CT (units (unkno wn) date) ANGIOGRAPHY: unknown) (unknown) (no (unknown) (unknown) No acute (units (unkno wn) date) intracranial unknown) process is seen. (unknown) (no (unknown) (unknown) No (units (unkno wn) date) unknown) (unknown) (no (unknown) (unknown) Noncontrast 4.5 (units (unknown) date) mm thick angled unknown) axial sections acquired from the foramen magnum (unknown) (no (unknown) (unknown) Noncontrast (units (un known) date) images were unknown) performed earlier in the day and not repeated. After (unknown) (no (unknown) (unknown) Note: Case (units (unk nown) date) discussed by unknown) telephone with Dr. Kelley at 2:32 p.m. [place] time on (unknown) (no (unknown) (unknown) January 09, (units (un known) date) unknown) (unknown) (no (unknown) (unknown) Orbits appear (units ( unknown) date) normal. unknown) (unknown) (no (unknown) (unknown) Ordering (units (unkno wn) date) Provider: unknown) Rick Kelley D.O. 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, with moderate (unknown) (no (unknown) (unknown) PROCEDURE: CT (units ( unknown) date) ANGIO HEAD AND unknown) NECK (unknown) (no (unknown) (unknown) PROCEDURE: CT (units ( unknown) date) HEAD/BRAIN WO CON unknown) (unknown) (no (unknown) (unknown) Patient: (units (unkno wn) date) Kamryn Danielle M unknown) MR#: (unknown) (no (unknown) (unknown) Posterior (units (unkn own) date) circulation: The unknown) distal left T4 segment largely terminates in the (unknown) (no (unknown) (unknown) Posterior (units (unkn own) date) circulation: The unknown) origins of the vertebral arteries both appear (unknown) (no (unknown) (unknown) Procedure: CT (units ( unknown) date) angio head and unknown) neck (unknown) (no (unknown) (unknown) Procedure: CT (units ( unknown) date) head/brain wo con unknown) (unknown) (no (unknown) (unknown) 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 (unknown) (no (unknown) (unknown) Right soft tissue (units (unknown) date) neck hematoma with unknown) mild surrounding inflammatory change. (unknown) (no (unknown) (unknown) Signed (units (unkno wn) date) unknown) (unknown) (no (unknown) (unknown) Sinuses: Sinuses (units (unknown) date) and mastoids are unknown) clear. (unknown) (no (unknown) (unknown) Sinuses: (units (unkno wn) date) Visualized sinuses unknown) and mastoids are clear. (unknown) (no (unknown) (unknown) Skull and face: (units (unknown) date) Calvarium and unknown) facial bones appear intact, without suspicious (unknown) (no (unknown) (unknown) Skull and face: (units (unknown) date) Calvarium and unknown) visualized facial bones appear intact, without (unknown) (no (unknown) (unknown) Soft tissues: (units ( unknown) date) Focal hematoma unknown) with soft tissue swelling can be seen involving (unknown) (no (unknown) (unknown) TECHNIQUE: (units (unk nown) date) unknown) (unknown) (no (unknown) (unknown) The more superior (units (unknown) date) extracranial unknown) portions of both vertebral arteries also (unknown) (no (unknown) (unknown) These imaging (units ( unknown) date) 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 (units (unkno wn) date) unknown) (unknown) (no (unknown) (unknown) and courses. The (units (unknown) date) bifurcation unknown) regions demonstrate generalized atherosclerotic (unknown) (no (unknown) (unknown) and neck (units (unkno wn) date) separately. For unknown) radiation dose reduction, the following was used: (unknown) (no (unknown) (unknown) and (units (unkno wn) date) unknown) (unknown) (no (unknown) (unknown) and/or volume (units ( unknown) date) rendering unknown) reformats were acquired of the central intracranial (unknown) (no (unknown) (unknown) aneurysms are (units ( unknown) date) seen. unknown) (unknown) (no (unknown) (unknown) anterior cerebral (units (unknown) date) arteries is normal unknown) and symmetric. The flow within the middle (unknown) (no (unknown) (unknown) aortic arch (units (un known) date) unknown) (unknown) (no (unknown) (unknown) appearing (units (unkn own) date) unknown) (unknown) (no (unknown) (unknown) appears intact. 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 (unknown) (no (unknown) (unknown) arise from (units (unk nown) date) unknown) (unknown) (no (unknown) (unknown) arteries is (units (un known) date) normal and unknown) symmetric. The anterior communicating artery is seen. (unknown) (no (unknown) (unknown) arteries, (units (unkn own) date) unknown) (unknown) (no (unknown) (unknown) arteries. (units (unkn own) date) unknown) (unknown) (no (unknown) (unknown) aspect of the C5 (units (unknown) date) vertebral body. unknown) (unknown) (no (unknown) (unknown) at C5-C6, as on (units (unknown) date) series 14, images unknown) 45-46. (unknown) (no (unknown) (unknown) atherosclerotic (units (unknown) date) calcification, unknown) with up to 70% narrowing. There is a normal (unknown) (no (unknown) (unknown) atherosclerotic (units (unknown) date) unknown) (unknown) (no (unknown) (unknown) automated (units (unkn own) date) unknown) (unknown) (no (unknown) (unknown) basilar artery. (units (unknown) date) Flow within the unknown) posterior cerebral arteries is normal and (unknown) (no (unknown) (unknown) bridging (units (unkno wn) date) osteophytes. The unknown) disc spaces are relatively well preserved. There is (unknown) (no (unknown) (unknown) calcification and (units (unknown) date) irregularity, with unknown) 80-90% narrowing seen both proximal (unknown) (no (unknown) (unknown) calcification, (units (unknown) date) with 60-70% unknown) narrowing seen on each side. The flow within the (unknown) (no (unknown) (unknown) caliber (units (unkno wn) date) unknown) (unknown) (no (unknown) (unknown) carotid arteries (units (unknown) date) appear patent. The unknown) common carotid arteries demonstrate normal (unknown) (no (unknown) (unknown) central canal (units ( unknown) date) narrowing at unknown) C5-C6. (unknown) (no (unknown) (unknown) cerebral (units (unkno wn) date) unknown) (unknown) (no (unknown) (unknown) common (units (unkno wn) date) unknown) (unknown) (no (unknown) (unknown) contraindication) (units (unknown) date) . unknown) (unknown) (no (unknown) (unknown) dedicated (units (unkn own) date) cervical spine MRI unknown) for further evaluation (assuming that there is no (unknown) (no (unknown) (unknown) deep white (units (unk nown) date) unknown) (unknown) (no (unknown) (unknown) demonstrate (units (un known) date) unknown) (unknown) (no (unknown) (unknown) dimension. (units (unk nown) date) unknown) (unknown) (no (unknown) (unknown) elements do not (units (unknown) date) appear involved. unknown) (unknown) (no (unknown) (unknown) exposure control, (units (unknown) date) adjustment of mA unknown) and/or kV according to patient size. (unknown) (no (unknown) (unknown) extra-axial fluid (units (unknown) date) collections. unknown) (unknown) (no (unknown) (unknown) following (units (unkn own) date) unknown) (unknown) (no (unknown) (unknown) frontal (units (unkno wn) date) unknown) (unknown) (no (unknown) (unknown) greatest axial (units (unknown) date) unknown) (unknown) (no (unknown) (unknown) hyperostosis (units (u nknown) date) unknown) (unknown) (no (unknown) (unknown) infarction seen, (units (unknown) date) with focal volume unknown) loss and encephalomalacia. There is (unknown) (no (unknown) (unknown) inferior (units (unkno wn) date) unknown) (unknown) (no (unknown) (unknown) interface (units (unkn own) date) unknown) (unknown) (no (unknown) (unknown) internal carotid (units (unknown) date) artery unknown) atherosclerosis. (unknown) (no (unknown) (unknown) internal carotid (units (unknown) date) unknown) (unknown) (no (unknown) (unknown) intracranial (units (u nknown) date) unknown) (unknown) (no (unknown) (unknown) is also made with (units (unknown) date) the prior outside unknown) cervical spine CT examinations 01/07/2022 (unknown) (no (unknown) (unknown) lateral neck (units (u nknown) date) superiorly. The unknown) hematoma itself measures 3.2 by 1.8 cm in (unknown) (no (unknown) (unknown) left (units (unkno wn) date) unknown) (unknown) (no (unknown) (unknown) left. (units (unkno wn) date) unknown) (unknown) (no (unknown) (unknown) lesions. (units (unkno wn) date) unknown) (unknown) (no (unknown) (unknown) matter chronic (units (unknown) date) small vessel unknown) ischemic changes. There is a remote right superior (unknown) (no (unknown) (unknown) narrowing seen (units (unknown) date) unknown) (unknown) (no (unknown) (unknown) normal courses (units (unknown) date) and calibers. The unknown) right vertebral artery is dominant to the (unknown) (no (unknown) (unknown) paired (units (unkno wn) date) unknown) (unknown) (no (unknown) (unknown) patent. No (units (unk nown) date) unknown) (unknown) (no (unknown) (unknown) patient (units (unkno wn) date) unknown) (unknown) (no (unknown) (unknown) posterior (units (unkn own) date) inferior unknown) cerebellar artery. The right V4 segment demonstrates focal (unknown) (no (unknown) (unknown) posterior (units (unkn own) date) inferior unknown) cerebellar artery. (unknown) (no (unknown) (unknown) posterior (units (unkn own) date) unknown) (unknown) (no (unknown) (unknown) prominent (units (unkn own) date) unknown) (unknown) (no (unknown) (unknown) relatively (units (unk nown) date) prominent unknown) ossification of the posterior longitudinal ligament seen (unknown) (no (unknown) (unknown) resultant (units (unkn own) date) ventricular and unknown) sulcal prominence. There are periventricular and (unknown) (no (unknown) (unknown) seen (units (unkno wn) date) unknown) (unknown) (no (unknown) (unknown) size. (units (unkno wn) date) unknown) (unknown) (no (unknown) (unknown) suspicious (units (unk nown) date) unknown) (unknown) (no (unknown) (unknown) symmetric. No (units ( unknown) date) unknown) (unknown) (no (unknown) (unknown) the aortic arch. (units (unknown) date) Atherosclerotic unknown) calcification is noted. The origins of the (unknown) (no (unknown) (unknown) the foramen (units (un known) date) magnum to the unknown) vertex. 3-dimensional maximum-intensity- projection (unknown) (no (unknown) (unknown) the right (units (unkn own) date) unknown) (unknown) (no (unknown) (unknown) the (units (unkno wn) date) unknown) (unknown) (no (unknown) (unknown) through the (units (un known) date) [place]. unknown) Post-contrast 4.5 mm thick sections then re (unknown) (no (unknown) (unknown) through the (units (un known) date) vertebral body, unknown) and also involving the prominent osteophytes. The (unknown) (no (unknown) (unknown) to severe (units (unkn own) date) unknown) (unknown) (no (unknown) (unknown) to the (units (unkno wn) date) unknown) (unknown) (no (unknown) (unknown) vasculature (units (un known) date) unknown) (unknown) (no (unknown) (unknown) ventricles are (units (unknown) date) symmetric in size unknown) and shape. (unknown) (no (unknown) (unknown) vertex, with (units (u nknown) date) coronal and unknown) sagittal reformats. For radiation dose reduction, the (unknown) (no (unknown) (unknown) was used: (units (unkn own) date) automated exposure unknown) control, adjustment of mA and/or kV according to (unknown) (no (unknown) (unknown) widely patent. (units (unknown) date) unknown) (unknown) (no (unknown) (unknown) with 60-70% (units (un known) date) narrowing seen on unknown) each side. Result panel 48 (unknown) (no (unknown) (unknown) (no value) (units (unk nown) date) unknown) (unknown) (no (unknown) (unknown) 1. Small right (units (unknown) date) pleural effusion. unknown) Nonspecific right basilar opacities are (unknown) (no (unknown) (unknown) 01/09/22 (units (unkno wn) date) unknown) (unknown) (no (unknown) (unknown) [address] [place] [address] (units (unknown) date) unknown) (unknown) (no (unknown) (unknown) 2. Cardiac (units (unk nown) date) silhouette is unknown) mildly enlarged and pulmonary vasculature appears (unknown) (no (unknown) (unknown) 3. Nodular (units (unk nown) date) opacities project unknown) over the left mid lung, nonspecific. These could (unknown) (no (unknown) (unknown) Accession (units (unkn own) date) Number: unknown) [id number] (unknown) (no (unknown) (unknown) Age/Sex: 81 / F (units (unknown) date) Date of Service: unknown) (unknown) (no (unknown) (unknown) [place], [place] (units ( unknown) date) [id number] unknown) (unknown) (no (unknown) (unknown) Approved by: (units (u nknown) date) ranjith Llamas M.D. on 01/09/2022 at 15:23 (unknown) (no (unknown) (unknown) Bones and chest (units (unknown) date) wall: No unknown) suspicious bony lesions. Overlying soft tissues (unknown) (no (unknown) (unknown) COMPARISON: (units (un known) date) None. unknown) (unknown) (no (unknown) (unknown) : 1940 (units (unknown) date) Acct:[id number] unknown) (unknown) (no (unknown) (unknown) Dictated by: (units (u nknown) date) ranjith Llamas M.D. on 01/09/2022 at 15:19 (unknown) (no (unknown) (unknown) FINDINGS: (units (unkn own) date) unknown) (unknown) (no (unknown) (unknown) IMPRESSION: (units (un known) date) unknown) (unknown) (no (unknown) (unknown) INDICATIONS: (units (u nknown) date) fall on thinners unknown) (unknown) (no (unknown) (unknown) [facility] (units (unknown) date) unknown) (unknown) (no (unknown) (unknown) Loc: ED (units (unkno wn) date) unknown) (unknown) (no (unknown) (unknown) Lungs and (units (unkn own) date) pleura: Small unknown) right pleural effusion. Mild nonspecific right (unknown) (no (unknown) (unknown) [id number] (units (unk nown) date) unknown) (unknown) (no (unknown) (unknown) Mediastinum: (units (u nknown) date) Cardiac unknown) silhouette is mildly enlarged. (unknown) (no (unknown) (unknown) Nodular (units (unkno wn) date) unknown) (unknown) (no (unknown) (unknown) Ordering (units (unkno wn) date) Provider: unknown) Rick Kelley D.O. (unknown) (no (unknown) (unknown) PROCEDURE: XR (units ( unknown) date) CHEST 1V unknown) (unknown) (no (unknown) (unknown) Patient: (units (unkno wn) date) Kamryn Danielle M unknown) MR#: (unknown) (no (unknown) (unknown) Procedure: XR (units ( unknown) date) chest 1V unknown) (unknown) (no (unknown) (unknown) Signed (units (unkno wn) date) unknown) (unknown) (no (unknown) (unknown) Surgical changes (units (unknown) date) and devices: Left unknown) axillary metal clips. (unknown) (no (unknown) (unknown) TECHNIQUE: One (units (unknown) date) view of the chest unknown) was acquired. (unknown) (no (unknown) (unknown) XRay Report (units (un known) date) unknown) (unknown) (no (unknown) (unknown) appear (units (unkno wn) date) unknown) (unknown) (no (unknown) (unknown) basilar (units (unkno wn) date) unknown) (unknown) (no (unknown) (unknown) chest wall (units (unk nown) date) calcifications or unknown) pulmonary nodules or objects external to the (unknown) (no (unknown) (unknown) congested. (units (unk nown) date) unknown) (unknown) (no (unknown) (unknown) may represent (units ( unknown) date) atelectasis, unknown) aspiration or pneumonia not excludable. (unknown) (no (unknown) (unknown) mildly (units (unkno wn) date) unknown) (unknown) (no (unknown) (unknown) opacities (units (unkn own) date) project over the unknown) left mid lung, approximately 2 centimeters each (unknown) (no (unknown) (unknown) opacities. No (units ( unknown) date) pneumothorax. unknown) Pulmonary vasculature appears prominent. two (unknown) (no (unknown) (unknown) patient. CT of (units (unknown) date) unknown) (unknown) (no (unknown) (unknown) present which (units ( unknown) date) unknown) (unknown) (no (unknown) (unknown) represent (units (unkn own) date) unknown) (unknown) (no (unknown) (unknown) the chest could (units (unknown) date) be obtained as unknown) clinically indicated. (unknown) (no (unknown) (unknown) unremarkable. (units ( unknown) date) unknown) Result panel 49 (unknown) (no (unknown) (unknown) (no value) (units (unk nown) date) unknown) (unknown) (no (unknown) (unknown) [id number] (units (unkn own) date) unknown) (unknown) (no (unknown) (unknown) 1 tab PO Q4HP (units ( unknown) date) PRNQty: 30 0RF unknown) (unknown) (no (unknown) (unknown) 01/09/22 14:06 (units (unknown) date) unknown) (unknown) (no (unknown) (unknown) 01/09/22 (units (unkno wn) date) unknown) (unknown) (no (unknown) (unknown) 13:59 (units (unkno wn) date) unknown) (unknown) (no (unknown) (unknown) 2 mg PO BID (units (un known) date) Qty: 0 unknown) (unknown) (no (unknown) (unknown) 75 mg PO QDAY (units ( unknown) date) Qty: 0 unknown) (unknown) (no (unknown) (unknown) Age/Sex: 81 / F (units (unknown) date) unknown) (unknown) (no (unknown) (unknown) Allergies (units (unkn own) date) unknown) (unknown) (no (unknown) (unknown) Allergy/AdvReac (units (unknown) date) Type Severity unknown) Reaction Status Date / Time (unknown) (no (unknown) (unknown) Blood Pressure (units (unknown) date) 136/66 01/09/22 unknown) 13:59 (unknown) (no (unknown) (unknown) Blood Pressure (units (unknown) date) unknown) (unknown) (no (unknown) (unknown) Chief (units (unkno wn) date) complaint: unknown) Weakness (unknown) (no (unknown) (unknown) Course (units (unkno wn) date) unknown) (unknown) (no (unknown) (unknown) : 1940 (units (unknown) date) Acct:[id number] unknown) (unknown) (no (unknown) (unknown) Date of (units (unkno wn) date) Service: unknown) 01/09/22 (unknown) (no (unknown) (unknown) Departure (units (unkn own) date) unknown) (unknown) (no (unknown) (unknown) Discharge Plan (units (unknown) date) unknown) (unknown) (no (unknown) (unknown) ED Orders (units (unkn own) date) unknown) (unknown) (no (unknown) (unknown) EKG-12 Lead (units (un known) date) Routine unknown) (unknown) (no (unknown) (unknown) ER Physician: (units ( unknown) date) Rick Kelley unknown) D.O. (unknown) (no (unknown) (unknown) Emergency (units (unkn own) date) Report unknown) (unknown) (no (unknown) (unknown) Exam (units (unkno wn) date) unknown) (unknown) (no (unknown) (unknown) General (units (unkno wn) date) unknown) (unknown) (no (unknown) (unknown) HPI - General (units ( unknown) date) Adult unknown) (unknown) (no (unknown) (unknown) Home (units (unkno wn) date) Medications unknown) (unknown) (no (unknown) (unknown) Initial Vital (units ( unknown) date) Signs unknown) (unknown) (no (unknown) (unknown) Initial Vital (units ( unknown) date) Signs: unknown) (unknown) (no (unknown) (unknown) [facility] (units (unknown) date) [address] unknown) [place] [address] (unknown) (no (unknown) (unknown) Medication (units (unk nown) date) Instructions unknown) Recorded Confirmed (unknown) (no (unknown) (unknown) Medication (units (unk nown) date) Instructions unknown) Recorded (unknown) (no (unknown) (unknown) Mode of (units (unkno wn) date) arrival: EMS unknown) (unknown) (no (unknown) (unknown) No Action (units (unkn own) date) unknown) (unknown) (no (unknown) (unknown) Ordered: (units (unkno wn) date) unknown) (unknown) (no (unknown) (unknown) Orders (units (unkno wn) date) unknown) (unknown) (no (unknown) (unknown) Oxygen Delivery (units (unknown) date) Method 01/09/22 unknown) 13:59 (unknown) (no (unknown) (unknown) Oxygen Delivery (units (unknown) date) Method Room Air unknown) (unknown) (no (unknown) (unknown) Patient: (units (unkno wn) date) Kamryn Danielle unknown) M MR#: M (unknown) (no (unknown) (unknown) Prescriptions: (units (unknown) date) unknown) (unknown) (no (unknown) (unknown) Previous Rx's (units ( unknown) date) unknown) (unknown) (no (unknown) (unknown) Pulse Oximetry (units (unknown) date) 98 01/09/22 unknown) 13:59 (unknown) (no (unknown) (unknown) Pulse Oximetry (units (unknown) date) 98 unknown) (unknown) (no (unknown) (unknown) Pulse Rate 88 (units ( unknown) date) 01/09/22 13:59 unknown) (unknown) (no (unknown) (unknown) Pulse Rate 88 (units ( unknown) date) unknown) (unknown) (no (unknown) (unknown) Referrals: (units (unk nown) date) unknown) (unknown) (no (unknown) (unknown) Related Data (units (u nknown) date) unknown) (unknown) (no (unknown) (unknown) Respiratory (units (un known) date) Rate 18 01/09/22 unknown) 13:59 (unknown) (no (unknown) (unknown) Respiratory (units (un known) date) Rate 18 unknown) (unknown) (no (unknown) (unknown) Jefry Deleon MD (units (unknown) date) [Primary Care unknown) Provider] (unknown) (no (unknown) (unknown) SWELLING (units (unkno wn) date) unknown) (unknown) (no (unknown) (unknown) Signed By: (units (unk nown) date) unknown) (unknown) (no (unknown) (unknown) Source: patient (units (unknown) date) and EMS unknown) (unknown) (no (unknown) (unknown) Stated (units (unkno wn) date) complaint: unknown) Multiple falls (unknown) (no (unknown) (unknown) Time Seen by (units (u nknown) date) Provider: unknown) 01/09/22 14:06 (unknown) (no (unknown) (unknown) Vital Signs - 8 (units (unknown) date) hr unknown) (unknown) (no (unknown) (unknown) Vital Signs (units (un known) date) unknown) (unknown) (no (unknown) (unknown) Vital signs: (units (u nknown) date) unknown) (unknown) (no (unknown) (unknown) clopidogrel 75 (units (unknown) date) mg tablet unknown) (Plavix) 75 mg PO QDAY ##0 08/06/16 (unknown) (no (unknown) (unknown) clopidogrel (units (un known) date) [Plavix] 75 MG unknown) tablet (unknown) (no (unknown) (unknown) codeine (units (unkno wn) date) [CODEINE] unknown) Allergy Severe ORAL Unverified 07/08/17 12:01 (unknown) (no (unknown) (unknown) glimepiride 2 (units ( unknown) date) mg tablet unknown) (Amaryl) 2 mg PO BID ##0 08/20/16 (unknown) (no (unknown) (unknown) glimepiride (units (un known) date) [Amaryl] 2 MG unknown) tablet (unknown) (no (unknown) (unknown) hydrocodone 5 (units ( unknown) date) mg-acetaminophen unknown) 325 1 tab PO Q4HP PRN #30 tabs 08/21/16 (unknown) (no (unknown) (unknown) hydrocodone-chino (units (unknown) date) taminophen unknown) [[place]] 5 MG/325 MG tablet (unknown) (no (unknown) (unknown) mg tablet (units (unkn own) date) ([place]) unknown) (unknown) (no (unknown) (unknown) shrimp [SHRIMP] (units (unknown) date) AdvReac unknown) Intermediate VOMITING Unverified 07/08/17 12:01 Result panel 50 (unknown) (no date) (unknown) (unknown) > 60 ml/min (unkn own) (unknown) (no date) (unknown) (unknown) > 60 ml/min (unkn own) (unknown) (no date) (unknown) (unknown) 0.89 mg/dl (unkn own) (unknown) (no date) (unknown) (unknown) 138 mmol/l (unkn own) (unknown) (no date) (unknown) (unknown) 149 mg/dl (unkn own) (unknown) (no date) (unknown) (unknown) 149 mg/dl (unkn own) (unknown) (no date) (unknown) (unknown) 28 mg/dl (unkn own) (unknown) (no date) (unknown) (unknown) 3.2 mmol/l (unkn own) (unknown) (no date) (unknown) (unknown) 31.5 (units unknown) (unknown) (unknown) (no date) (unknown) (unknown) 34 mmol/l (unkn own) (unknown) (no date) (unknown) (unknown) 8.8 mg/dl (unkn own) (unknown) (no date) (unknown) (unknown) 96 mmol/l (unkn own) Result panel 51 (unknown) (no date) (unknown) (unknown) 0 /ul (unkn own) (unknown) (no date) (unknown) (unknown) 0.5 % (unkn own) (unknown) (no date) (unknown) (unknown) 0.8 % (unkn own) (unknown) (no date) (unknown) (unknown) 1.9 (units unknown) (unknown) (unknown) (no date) (unknown) (unknown) 10.5 % (unkn own) (unknown) (no date) (unknown) (unknown) 100 /ul (unkn own) (unknown) (no date) (unknown) (unknown) 19.6 % (unkn own) (unknown) (no date) (unknown) (unknown) 194 x10 3/ul (unkn own) (unknown) (no date) (unknown) (unknown) 22.5 seconds (unkn own) (unknown) (no date) (unknown) (unknown) 27.3 pg (unkn own) (unknown) (no date) (unknown) (unknown) 28.4 % (unkn own) (unknown) (no date) (unknown) (unknown) 3.39 x10 6/ul (unkn own) (unknown) (no date) (unknown) (unknown) 32.6 % (unkn own) (unknown) (no date) (unknown) (unknown) 5700 /ul (unkn own) (unknown) (no date) (unknown) (unknown) 7.2 x10 3/ul (unkn own) (unknown) (no date) (unknown) (unknown) 700 /ul (unkn own) (unknown) (no date) (unknown) (unknown) 78.7 % (unkn own) (unknown) (no date) (unknown) (unknown) 800 /ul (unkn own) (unknown) (no date) (unknown) (unknown) 83.8 fl (unkn own) (unknown) (no date) (unknown) (unknown) 9.3 g/dl (unkn own) (unknown) (no date) (unknown) (unknown) 9.5 % (unkn own) Result panel 52 (unknown) (no date) (unknown) (unknown) 1.9 (units unknown) (unknown) (unknown) (no date) (unknown) (unknown) 22.5 seconds (unkn own) (unknown) (no date) (unknown) (unknown) 29 seconds (unkn own) (unknown) (no date) (unknown) (unknown) 29 seconds (unkn own) Result panel 53 (unknown) (no date) (unknown) (unknown) A Positive (units (un known) unknown) (unknown) (no date) (unknown) (unknown) NEGATIVE (units (unkn own) unknown) Result panel 54 (unknown) (no (unknown) (unknown) (no value) (units (unk nown) date) unknown) (unknown) (no (unknown) (unknown) 1. Horizontally (units (unknown) date) oriented C5 unknown) fracture which likely extends into the bilateral (unknown) (no (unknown) (unknown) 01/09/22 (units (unkno wn) date) unknown) (unknown) (no (unknown) (unknown) [address] [place] [address] (units (unknown) date) unknown) (unknown) (no (unknown) (unknown) 2. Severe (units (unkn own) date) degenerative unknown) change, posterior disc osteophyte complexes, and severe (unknown) (no (unknown) (unknown) 3. Extensive (units (u nknown) date) edema throughout unknown) the surrounding paraspinous musculature. (unknown) (no (unknown) (unknown) Accession (units (unkn own) date) Number: unknown) [id number] (unknown) (no (unknown) (unknown) Age/Sex: 81 / F (units (unknown) date) Date of Service: unknown) (unknown) (no (unknown) (unknown) MAIDA Pelletier (units ( unknown) date) [id number] unknown) (unknown) (no (unknown) (unknown) Approved by: (units (u nknown) date) Edna Alan M.D. unknown) on 01/09/2022 at 16:49 (unknown) (no (unknown) (unknown) COMPARISON: (units (un known) date) [facility], unknown) CT, CT ANGIO HEAD AND NECK, 01/09/2022, 15:03. (unknown) (no (unknown) (unknown) : 1940 (units (unknown) date) Acct:[id number] unknown) (unknown) (no (unknown) (unknown) Dictated by: (units (u nknown) date) Edna Alan M.D. unknown) on 01/09/2022 at 16:38 (unknown) (no (unknown) (unknown) Emergent (units (unkno wn) date) unknown) (unknown) (no (unknown) (unknown) FINDINGS: (units (unkn own) date) unknown) (unknown) (no (unknown) (unknown) Hospital, MR, (units ( unknown) date) C-SPINE WITHOUT unknown) CONTRAST, 10/10/2015, 7:42. (unknown) (no (unknown) (unknown) IMPRESSION: (units (un known) date) unknown) (unknown) (no (unknown) (unknown) INDICATIONS: (units (u nknown) date) C5Fx with UE unknown) weakness (unknown) (no (unknown) (unknown) Image quality: (units (unknown) date) Adequate for unknown) evaluation. (unknown) (no (unknown) (unknown) [facility] (units (unknown) date) unknown) (unknown) (no (unknown) (unknown) [place] (units (unkno wn) date) unknown) (unknown) (no (unknown) (unknown) Loc: ED (units (unkno wn) date) unknown) (unknown) (no (unknown) (unknown) [id number] (units (unk nown) date) unknown) (unknown) (no (unknown) (unknown) Magnetic (units (unkno wn) date) Resonance Report unknown) (unknown) (no (unknown) (unknown) No definite cord (units (unknown) date) signal unknown) abnormality. (unknown) (no (unknown) (unknown) Noncontrast (units (un known) date) sagittal T1 spin unknown) echo and T2 fast spin echo, sagittal STIR, (unknown) (no (unknown) (unknown) Ordering (units (unkno wn) date) Provider: unknown) Rick Kelley D.O. (unknown) (no (unknown) (unknown) PROCEDURE: MR (units ( unknown) date) CERVICAL SPINE WO unknown) CON (unknown) (no (unknown) (unknown) Patient: (units (unkno wn) date) Kamryn Danielle M unknown) MR#: (unknown) (no (unknown) (unknown) Procedure: MR (units ( unknown) date) cervical spine wo unknown) con (unknown) (no (unknown) (unknown) Severe (units (unkno wn) date) degenerative unknown) changes are present throughout the cervical spine including (unknown) (no (unknown) (unknown) Severe (units (unkno wn) date) unknown) (unknown) (no (unknown) (unknown) Signed (units (unkno wn) date) unknown) (unknown) (no (unknown) (unknown) TECHNIQUE: (units (unk nown) date) unknown) (unknown) (no (unknown) (unknown) There are large (units (unknown) date) posterior disc unknown) osteophyte complexes throughout the cervical (unknown) (no (unknown) (unknown) There is an (units (un known) date) acute compression unknown) deformity at C5 which likely extends into the (unknown) (no (unknown) (unknown) There is diffuse (units (unknown) date) edema within the unknown) anterior and posterior paraspinous (unknown) (no (unknown) (unknown) This finding was (units (unknown) date) discussed with unknown) Dr. Kelley at 4:48 p.m. on January 09, 2022. (unknown) (no (unknown) (unknown) bilateral (units (unkn own) date) unknown) (unknown) (no (unknown) (unknown) body (units (unkno wn) date) unknown) (unknown) (no (unknown) (unknown) broad-based (units (un known) date) unknown) (unknown) (no (unknown) (unknown) canal stenosis (units (unknown) date) with deformity of unknown) the cord. The cord measures 4 mm at its (unknown) (no (unknown) (unknown) cervical spine. (units (unknown) date) unknown) (unknown) (no (unknown) (unknown) change. (units (unkno wn) date) unknown) (unknown) (no (unknown) (unknown) consistent with (units (unknown) date) a 3 column unknown) fracture. This is considered an unstable fracture. (unknown) (no (unknown) (unknown) degenerative (units (u nknown) date) changes are also unknown) present at C1-2 with subchondral cystic (unknown) (no (unknown) (unknown) degenerative (units (u nknown) date) unknown) (unknown) (no (unknown) (unknown) disc bulges. (units (u nknown) date) These findings unknown) are most severe at C4-5, C5-6, C6-7, and C7-T1. (unknown) (no (unknown) (unknown) dislocation. (units (u nknown) date) unknown) (unknown) (no (unknown) (unknown) foraminal (units (unkn own) date) oblique unknown) (unknown) (no (unknown) (unknown) height loss. No (units (unknown) date) definite unknown) retropulsed fracture fragments. No other fracture or (unknown) (no (unknown) (unknown) intervertebral (units (unknown) date) disc space unknown) narrowing, disc desiccation and height loss, and (unknown) (no (unknown) (unknown) multilevel (units (unk nown) date) unknown) (unknown) (no (unknown) (unknown) musculature. (units (u nknown) date) unknown) (unknown) (no (unknown) (unknown) narrowest point (units (unknown) date) unknown) (unknown) (no (unknown) (unknown) narrowest (units (unkn own) date) unknown) (unknown) (no (unknown) (unknown) neurosurgical (units ( unknown) date) consultation unknown) recommended. (unknown) (no (unknown) (unknown) pedicles (units (unkno wn) date) consistent with a unknown) 3 column fracture. There is only minimal vertebral (unknown) (no (unknown) (unknown) pedicles (units (unkno wn) date) unknown) (unknown) (no (unknown) (unknown) point posterior (units (unknown) date) to the C5-6 disc unknown) interspace. There is extensive flattening of (unknown) (no (unknown) (unknown) posterior to the (units (unknown) date) C5-6 disc unknown) interspace. 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 The canal measures 4 mm at its (unknown) (no (unknown) (unknown) sagittal T2 fast (units (unknown) date) spin echo, and unknown) axial gradient echo or T2 fast spin echo (unknown) (no (unknown) (unknown) spine with (units (unk nown) date) unknown) (unknown) (no (unknown) (unknown) the cord. (units (unkn own) date) unknown) (unknown) (no (unknown) (unknown) through the (units (un known) date) unknown) Result panel 55 (unknown) (no (unknown) (unknown) (no value) (units (unk nown) date) unknown) (unknown) (no (unknown) (unknown) 01/09/22 (units (unkno wn) date) unknown) (unknown) (no (unknown) (unknown) [address] [place] [address] (units (unknown) date) unknown) (unknown) (no (unknown) (unknown) Abdomen and (units (un known) date) Pelvis: unknown) (unknown) (no (unknown) (unknown) Abdominal wall: (units (unknown) date) Abdominal wall unknown) intact without evidence of ventral or inguinal (unknown) (no (unknown) (unknown) Accession Number: (units (unknown) date) [id number] unknown) (unknown) (no (unknown) (unknown) Additional 7 mm (units (unknown) date) thick coronal unknown) maximum intensity projection (MIP) reformats (unknown) (no (unknown) (unknown) Adrenals: Normal (units (unknown) date) morphology and unknown) density. (unknown) (no (unknown) (unknown) After the (units (unkn own) date) administration of unknown) intravenous contrast, 5 mm thick sections acquired (unknown) (no (unknown) (unknown) Age/Sex: 81 / F (units (unknown) date) Date of Service: unknown) (unknown) (no (unknown) (unknown) [place], [place] (units ( unknown) date) [id number] unknown) (unknown) (no (unknown) (unknown) Appendix: No (units (u nknown) date) findings to suggest unknown) acute appendicitis. (unknown) (no (unknown) (unknown) Approved by: Doc (units (unknown) date) Carole Holloway on unknown) 01/09/2022 at 17:53 (unknown) (no (unknown) (unknown) Bilateral (units (unkn own) date) calcified pleural unknown) plaquing, aortic atherosclerotic vascular (unknown) (no (unknown) (unknown) Biliary system: (units (unknown) date) Cholelithiasis unknown) (unknown) (no (unknown) (unknown) COMPARISON: None. (units (unknown) date) unknown) (unknown) (no (unknown) (unknown) CT Scan Report (units (unknown) date) unknown) (unknown) (no (unknown) (unknown) Cardiovascular: (units (unknown) date) Heart size is unknown) normal. No evidence of pulmonary embolism, (unknown) (no (unknown) (unknown) Chest Wall and (units (unknown) date) Bones: Surgical unknown) clips present in the left breast. (unknown) (no (unknown) (unknown) Chest: (units (unkno wn) date) unknown) (unknown) (no (unknown) (unknown) : 1940 (units (unknown) date) Acct:[id number] unknown) (unknown) (no (unknown) (unknown) FINDINGS: (units (unkn own) date) unknown) (unknown) (no (unknown) (unknown) Gastrointestinal (units (unknown) date) system: The bowel unknown) is unremarkable with no evidence of bowel (unknown) (no (unknown) (unknown) IMPRESSION: (units (un known) date) unknown) (unknown) (no (unknown) (unknown) INDICATIONS: Right (units (unknown) date) upper quadrant unknown) bruising after fall (unknown) (no (unknown) (unknown) [facility] (units (unknown) date) unknown) (unknown) (no (unknown) (unknown) Liver: Normal in (units (unknown) date) size and unknown) attenuation. No contour deformity present. (unknown) (no (unknown) (unknown) Loc: ED (units (unkno wn) date) unknown) (unknown) (no (unknown) (unknown) Lungs and pleural (units (unknown) date) spaces: Moderate unknown) right pleural effusion present. Calcified (unknown) (no (unknown) (unknown) Lymph nodes: No (units (unknown) date) mediastinal, hilar unknown) or axillary adenopathy. (unknown) (no (unknown) (unknown) Lymph nodes: No (units (unknown) date) mesenteric or unknown) retroperitoneal adenopathy. (unknown) (no (unknown) (unknown) [id number] (units (unk nown) date) unknown) (unknown) (no (unknown) (unknown) Mediastinum: (units (u nknown) date) Unremarkable. No unknown) hiatal hernia. Thyroid within normal limits. (unknown) (no (unknown) (unknown) Moderate right (units (unknown) date) pleural effusion unknown) with right basilar atelectasis or consolidation (unknown) (no (unknown) (unknown) Musculoskeletal: (units (unknown) date) Normal bone unknown) mineralization. No acute fractures. Right upper (unknown) (no (unknown) (unknown) Ordering Provider: (units (unknown) date) Rick Kelley D.O. 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 No unknown) free fluid. (unknown) (no (unknown) (unknown) Procedure: CT (units ( unknown) date) chest abd pel w con unknown) (unknown) (no (unknown) (unknown) Reproductive (units (u nknown) date) system: unknown) Unremarkable as visualized. (unknown) (no (unknown) (unknown) Right hip (units (unkn own) date) unknown) (unknown) (no (unknown) (unknown) Right upper (units (un known) date) quadrant anterior unknown) abdominal wall bruising and soft tissue swelling (unknown) (no (unknown) (unknown) Signed (units (unkno wn) date) unknown) (unknown) (no (unknown) (unknown) Spleen: Normal in (units (unknown) date) size and density. unknown) (unknown) (no (unknown) (unknown) TECHNIQUE: (units (unk nown) date) unknown) (unknown) (no (unknown) (unknown) Urinary system: (units (unknown) date) Normal renal size unknown) and attenuation. No renal calculi, (unknown) (no (unknown) (unknown) Vasculature: The (units (unknown) date) IVC, aorta and unknown) iliac vasculature are unremarkable. (unknown) (no (unknown) (unknown) acquired (units (unkno wn) date) unknown) (unknown) (no (unknown) (unknown) acquired. (units (unkn own) date) unknown) (unknown) (no (unknown) (unknown) anastomosis. Auto (units (unknown) date) text a CT aorta unknown) (unknown) (no (unknown) (unknown) aneurysm or (units (un known) date) dissection. Dense unknown) atherosclerotic vascular calcification noted (unknown) (no (unknown) (unknown) aortic arch. 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 (unknown) (no (unknown) (unknown) from the (units (unkno wn) date) unknown) (unknown) (no (unknown) (unknown) hernias. (units (unkno wn) date) unknown) (unknown) (no (unknown) (unknown) hydronephrosis, or (units (unknown) date) unknown) (unknown) (no (unknown) (unknown) ileocolic (units (unkn own) date) unknown) (unknown) (no (unknown) (unknown) instrumentation. (units (unknown) date) unknown) (unknown) (no (unknown) (unknown) involving the (units ( unknown) date) unknown) (unknown) (no (unknown) (unknown) lung apices to the (units (unknown) date) symphysis. 2.5 mm unknown) thick coronal and sagittal reformats were (unknown) (no (unknown) (unknown) mass. (units (unkno wn) date) unknown) (unknown) (no (unknown) (unknown) nodular. (units (unkno wn) date) unknown) (unknown) (no (unknown) (unknown) obstruction (units (un known) date) unknown) (unknown) (no (unknown) (unknown) or inflammation. (units (unknown) date) The stomach appears unknown) unremarkable. Right hemicolectomy with (unknown) (no (unknown) (unknown) plaquing noted in (units (unknown) date) the left. Basilar unknown) compressive atelectasis is similar to (unknown) (no (unknown) (unknown) pleural (units (unkno wn) date) unknown) (unknown) (no (unknown) (unknown) quadrant (units (unkno wn) date) unknown) (unknown) (no (unknown) (unknown) slight nodular (units (unknown) date) predominance. unknown) Follow-up to resolution to exclude underlying (unknown) (no (unknown) (unknown) solid mass (units (unk nown) date) present. Urinary unknown) bladder unremarkable. (unknown) (no (unknown) (unknown) subcutaneous (units (u nknown) date) bruising and soft unknown) tissue swelling noted. No underlying fracture. (unknown) (no (unknown) (unknown) the kidneys (units (un known) date) unknown) (unknown) (no (unknown) (unknown) through the lungs. (units (unknown) date) Optional 10-minute unknown) delayed imaging may be performed from (unknown) (no (unknown) (unknown) to the bladder. (units (unknown) date) For radiation dose unknown) reduction, the following was used: (unknown) (no (unknown) (unknown) total arthroplasty (units (unknown) date) results in unknown) (unknown) (no (unknown) (unknown) underlying (units (unk nown) date) fracture or unknown) intra-abdominal injury (unknown) (no (unknown) (unknown) with (units (unkno wn) date) unknown) (unknown) (no (unknown) (unknown) without (units (unkno wn) date) unknown) Result panel 56 (unknown) (no (unknown) (unknown) (no value) (units (unk nown) date) unknown) (unknown) (no (unknown) (unknown) (DISH).? (units (unkno wn) date) unknown) (unknown) (no (unknown) (unknown) (MIP) (units (unkno wn) date) unknown) (unknown) (no (unknown) (unknown) [phone] (units (unkn own) date) unknown) (unknown) (no (unknown) (unknown) 1 tab PO Q4HP (units ( unknown) date) PRNQty: 30 0RF unknown) (unknown) (no (unknown) (unknown) 1. Small right (units (unknown) date) pleural effusion.? unknown) Nonspecific right basilar opacities are (unknown) (no (unknown) (unknown) 01/09/22 01/09/22 (units (unknown) date) 01/09/22 unknown) Range/Units (unknown) (no (unknown) (unknown) 01/09/22 13:57 (units (unknown) date) unknown) (unknown) (no (unknown) (unknown) 01/09/22 14:06 (units (unknown) date) unknown) (unknown) (no (unknown) (unknown) 01/09/22 14:15 (units (unknown) date) unknown) (unknown) (no (unknown) (unknown) 01/09/22 14:17 (units (unknown) date) unknown) (unknown) (no (unknown) (unknown) 01/09/22 14:30 (units (unknown) date) unknown) (unknown) (no (unknown) (unknown) 01/09/22 15:47 (units (unknown) date) unknown) (unknown) (no (unknown) (unknown) 01/09/22 17:26 (units (unknown) date) unknown) (unknown) (no (unknown) (unknown) 01/09/22 17:33 (units (unknown) date) unknown) (unknown) (no (unknown) (unknown) 01/09/22 (units (unkno wn) date) Range/Units unknown) (unknown) (no (unknown) (unknown) 01/09/22 (units (unkno wn) date) unknown) (unknown) (no (unknown) (unknown) [address] [place] [address] (units (unknown) date) unknown) (unknown) (no (unknown) (unknown) 13:57 13:57 13:57 (units (unknown) date) unknown) (unknown) (no (unknown) (unknown) 13:59 01/09/22 (units (unknown) date) unknown) (unknown) (no (unknown) (unknown) 14:00 (units (unkno wn) date) unknown) (unknown) (no (unknown) (unknown) 14:01 01/09/22 (units (unknown) date) unknown) (unknown) (no (unknown) (unknown) 14:30 (units (unkno wn) date) unknown) (unknown) (no (unknown) (unknown) 14:31 01/09/22 (units (unknown) date) unknown) (unknown) (no (unknown) (unknown) 15:00 (units (unkno wn) date) unknown) (unknown) (no (unknown) (unknown) 15:30 01/09/22 (units (unknown) date) unknown) (unknown) (no (unknown) (unknown) 16:32 01/09/22 (units (unknown) date) unknown) (unknown) (no (unknown) (unknown) 16:34 01/09/22 (units (unknown) date) unknown) (unknown) (no (unknown) (unknown) 16:34 (units (unkno wn) date) unknown) (unknown) (no (unknown) (unknown) 16:59 01/09/22 (units (unknown) date) unknown) (unknown) (no (unknown) (unknown) 16:59 (units (unkno wn) date) unknown) (unknown) (no (unknown) (unknown) 17:00 01/09/22 (units (unknown) date) unknown) (unknown) (no (unknown) (unknown) 17:01 01/09/22 (units (unknown) date) unknown) (unknown) (no (unknown) (unknown) 17:01 (units (unkno wn) date) unknown) (unknown) (no (unknown) (unknown) 2 mg PO BID Qty: (units (unknown) date) 0 unknown) (unknown) (no (unknown) (unknown) 2. Cardiac (units (unk nown) date) silhouette is unknown) mildly enlarged and pulmonary vasculature appears (unknown) (no (unknown) (unknown) 2021. ? (units (unkno wn) date) unknown) (unknown) (no (unknown) (unknown) 3. Nodular (units (unk nown) date) opacities project unknown) over the left mid lung, nonspecific.? These could (unknown) (no (unknown) (unknown) 07/25/2021.? (units (un known) date) unknown) (unknown) (no (unknown) (unknown) 75 mg PO QDAY (units ( unknown) date) Qty: 0 unknown) (unknown) (no (unknown) (unknown) 80-90% narrowing (units (unknown) date) can be seen unknown) involving both proximal internal carotid arteries. (unknown) (no (unknown) (unknown) ? (units (unkno wn) date) unknown) (unknown) (no (unknown) (unknown) APTT (26-36) (units (u nknown) date) SECONDS unknown) (unknown) (no (unknown) (unknown) APTT 29 (26-36) (units (unknown) date) SECONDS unknown) (unknown) (no (unknown) (unknown) Accession Number: (units (unknown) date) [id number] ?? unknown) (unknown) (no (unknown) (unknown) Accession Number: (units (unknown) date) [id number] ?? unknown) (unknown) (no (unknown) (unknown) Accession Number: (units (unknown) date) [id number] ?? unknown) (unknown) (no (unknown) (unknown) Acct:[id number] (units (unknown) date) unknown) (unknown) (no (unknown) (unknown) Age/Sex: 81 / F (units (unknown) date) unknown) (unknown) (no (unknown) (unknown) Allergies (units (unkn own) date) unknown) (unknown) (no (unknown) (unknown) Allergy/AdvReac (units (unknown) date) Type Severity unknown) Reaction Status Date / Time (unknown) (no (unknown) (unknown) Along the (units (unkn own) date) inferior aspect of unknown) the C5 level, there is a mildly displaced fracture (unknown) (no (unknown) (unknown) [place], [place] (units ( unknown) date) [id number] unknown) (unknown) (no (unknown) (unknown) Anatomic variant (units (unknown) date) noted of the left unknown) V4 segment largely terminating the in the (unknown) (no (unknown) (unknown) Anterior (units (unkno wn) date) circulation:? unknown) Intracranial internal carotid arteries demonstrate (unknown) (no (unknown) (unknown) Antibody Screen (units (unknown) date) Negative unknown) (unknown) (no (unknown) (unknown) Antibody Screen (units (unknown) date) unknown) (unknown) (no (unknown) (unknown) Any quantitative (units (unknown) date) measurements of unknown) stenosis were performed using NASCET criteria.? (unknown) (no (unknown) (unknown) Approved by: (units (u nknown) date) Jd Baker, unknown) Carole on 01/09/2022 at 15:23 (unknown) (no (unknown) (unknown) Approved by: (units (u nknown) date) Boris Cardona, unknown) MTriston on 01/09/2022 at 14:25?? (unknown) (no (unknown) (unknown) Approved by: (units (u nknown) date) Boris Cardona, unknown) MTriston on 01/09/2022 at 14:41? (unknown) (no (unknown) (unknown) BRAIN:? (units (unkno wn) date) unknown) (unknown) (no (unknown) (unknown) BUN (7-17) mg/dL (units (unknown) date) unknown) (unknown) (no (unknown) (unknown) BUN 28 H (7-17) (units (unknown) date) mg/dL unknown) (unknown) (no (unknown) (unknown) BUN/Creatinine (units (unknown) date) Ratio (6-22) unknown) (unknown) (no (unknown) (unknown) BUN/Creatinine (units (unknown) date) Ratio 31.5 H unknown) (6-22) (unknown) (no (unknown) (unknown) Basic Metabolic (units (unknown) date) Panel Stat unknown) (unknown) (no (unknown) (unknown) Baso # (Auto) (units ( unknown) date) (0-100) /uL unknown) (unknown) (no (unknown) (unknown) Baso # (Auto) 0 (units (unknown) date) (0-100) /uL unknown) (unknown) (no (unknown) (unknown) Baso % (Auto) (units ( unknown) date) (0-2) % unknown) (unknown) (no (unknown) (unknown) Baso % (Auto) 0.5 (units (unknown) date) (0-2) % unknown) (unknown) (no (unknown) (unknown) Blood Pressure (units (unknown) date) 136/66 01/09/22 unknown) 13:59 (unknown) (no (unknown) (unknown) Blood Pressure (units (unknown) date) 136/66 unknown) (unknown) (no (unknown) (unknown) Blood Pressure (units (unknown) date) 162/70 H unknown) (unknown) (no (unknown) (unknown) Blood Pressure (units (unknown) date) 169/76 H unknown) (unknown) (no (unknown) (unknown) Blood Pressure (units (unknown) date) 172/75 H unknown) (unknown) (no (unknown) (unknown) Blood Pressure (units (unknown) date) 177/74 H unknown) (unknown) (no (unknown) (unknown) Blood Pressure (units (unknown) date) 190/84 H unknown) (unknown) (no (unknown) (unknown) Blood Type A (units (u nknown) date) Positive unknown) (unknown) (no (unknown) (unknown) Blood Type (units (unk nown) date) unknown) (unknown) (no (unknown) (unknown) Bones and chest (units (unknown) date) wall:? No unknown) suspicious bony lesions.? Overlying soft tissues (unknown) (no (unknown) (unknown) Bones:? No (units (unk nown) date) suspicious bony unknown) lesions.? Visualized cervical spine appears normally (unknown) (no (unknown) (unknown) Brain:? No (units (unk nown) date) intracranial unknown) bleeds or masses.? There is cerebral volume loss for (unknown) (no (unknown) (unknown) Brain:? No (units (unk nown) date) midline shift.? No unknown) intracranial bleeds or masses.? Cortes-white matter (unknown) (no (unknown) (unknown) C7, as on series (units (unknown) date) 16 image 33.? unknown) There is moderate to severe central canal (unknown) (no (unknown) (unknown) COMPARISON:? (units (u nknown) date) [facility], unknown) CT, CT ANGIO HEAD AND NECK, 01/09/2022, 15:03. (unknown) (no (unknown) (unknown) COMPARISON:? (units (u nknown) date) [facility], unknown) CT, CT HEAD/BRAIN WO CON, 01/09/2022, 15:03.? (unknown) (no (unknown) (unknown) COMPARISON:? (units (u nknown) date) None. unknown) (unknown) (no (unknown) (unknown) COVID19 -Nasal (units (unknown) date) RAPID/Pre-Proc unknown) Stat (unknown) (no (unknown) (unknown) CSF spaces:? (units (u nknown) date) Basal cisterns are unknown) patent.? No extra-axial fluid collections.? The (unknown) (no (unknown) (unknown) CSF spaces:? (units (u nknown) date) Ventricles are unknown) normal in size and shape.? Basal cisterns are (unknown) (no (unknown) (unknown) CT Scan Report (units (unknown) date) unknown) (unknown) (no (unknown) (unknown) CT abdomen pelvis (units (unknown) date) w con Stat unknown) (unknown) (no (unknown) (unknown) CT angio head and (units (unknown) date) neck Stat unknown) (unknown) (no (unknown) (unknown) CT head/brain wo (units (unknown) date) con Stat unknown) (unknown) (no (unknown) (unknown) CT scan - head: (units (unknown) date) unknown) (unknown) (no (unknown) (unknown) CTA - brain/neck: (units (unknown) date) unknown) (unknown) (no (unknown) (unknown) Calcium (units (unkno wn) date) (8.4-10.2) mg/dL unknown) (unknown) (no (unknown) (unknown) Calcium 8.8 (units (un known) date) (8.4-10.2) mg/dL unknown) (unknown) (no (unknown) (unknown) Carbon Dioxide (units (unknown) date) (22-32) mmol/L unknown) (unknown) (no (unknown) (unknown) Carbon Dioxide 34 (units (unknown) date) H (22-32) mmol/L unknown) (unknown) (no (unknown) (unknown) Carotid system:? (units (unknown) date) The great vessels unknown) demonstrate a conventional anatomy as they (unknown) (no (unknown) (unknown) Chest x-ray: (units (u nknown) date) unknown) (unknown) (no (unknown) (unknown) Chief complaint: (units (unknown) date) Weakness unknown) (unknown) (no (unknown) (unknown) Chloride (98-107) (units (unknown) date) mmol/L unknown) (unknown) (no (unknown) (unknown) Chloride 96 L (units ( unknown) date) (98-107) mmol/L unknown) (unknown) (no (unknown) (unknown) Complete Blood (units (unknown) date) Count AUTO DIFF unknown) Stat (unknown) (no (unknown) (unknown) Correlation (units (un known) date) unknown) (unknown) (no (unknown) (unknown) Course (units (unkno wn) date) unknown) (unknown) (no (unknown) (unknown) Creatinine (units (unk nown) date) (0.52-1.04) mg/dL unknown) (unknown) (no (unknown) (unknown) Creatinine 0.89 (units (unknown) date) (0.52-1.04) mg/dL unknown) (unknown) (no (unknown) (unknown) : 1940 (units (unknown) date) Acct:[id number] unknown) (unknown) (no (unknown) (unknown) : 1940 (units (unknown) date) unknown) (unknown) (no (unknown) (unknown) Date of Service: (units (unknown) date) 01/09/22 unknown) (unknown) (no (unknown) (unknown) Dense (units (unkno wn) date) calcification can unknown) be seen involving the intracranial internal carotid (unknown) (no (unknown) (unknown) Departure (units (unkn own) date) unknown) (unknown) (no (unknown) (unknown) Dictated by: (units (u nknown) date) Jd Baker, unknownMarlon Lam on 01/09/2022 at 15:19 ? ? (unknown) (no (unknown) (unknown) Dictated by: (units (u nknown) date) Boris Cardona, unknown) Carole on 01/09/2022 at 14:24 ? ? (unknown) (no (unknown) (unknown) Dictated by: (units (u nknown) date) Boris Cardona, unknown) Carole on 01/09/2022 at 14:26 ? ? (unknown) (no (unknown) (unknown) Discharge Plan (units (unknown) date) unknown) (unknown) (no (unknown) (unknown) Documented By: KF (units (unknown) date) unknown) (unknown) (no (unknown) (unknown) ED Orders (units (unkn own) date) unknown) (unknown) (no (unknown) (unknown) EKG-12 Lead (units (un known) date) Routine unknown) (unknown) (no (unknown) (unknown) ER Physician: (units ( unknown) date) Rick Kelley unknown) D.O. (unknown) (no (unknown) (unknown) Emergency Report (units (unknown) date) unknown) (unknown) (no (unknown) (unknown) Eos # (Auto) (units (u nknown) date) (0-450) /uL unknown) (unknown) (no (unknown) (unknown) Eos # (Auto) 100 (units (unknown) date) (0-450) /uL unknown) (unknown) (no (unknown) (unknown) Eos % (Auto) (units (u nknown) date) (2-4) % unknown) (unknown) (no (unknown) (unknown) Eos % (Auto) 0.8 (units (unknown) date) L (2-4) % unknown) (unknown) (no (unknown) (unknown) Estimated GFR > (units (unknown) date) 60 (>60) mL/min unknown) (unknown) (no (unknown) (unknown) Estimated GFR (units ( unknown) date) (>60) mL/min unknown) (unknown) (no (unknown) (unknown) Exam (units (unkno wn) date) unknown) (unknown) (no (unknown) (unknown) FINDINGS:? (units (unk nown) date) unknown) (unknown) (no (unknown) (unknown) General (units (unkno wn) date) unknown) (unknown) (no (unknown) (unknown) Glucose (80-110) (units (unknown) date) mg/dL unknown) (unknown) (no (unknown) (unknown) Glucose 149 H (units ( unknown) date) (80-110) mg/dL unknown) (unknown) (no (unknown) (unknown) HEAD CT (units (unkno wn) date) ANGIOGRAPHY:? unknown) (unknown) (no (unknown) (unknown) HPI - General (units ( unknown) date) Adult unknown) (unknown) (no (unknown) (unknown) Hct (36-46) % (units ( unknown) date) unknown) (unknown) (no (unknown) (unknown) Hct 28.4 L (units (unk nown) date) (36-46) % unknown) (unknown) (no (unknown) (unknown) Hgb (12.0-16.0) (units (unknown) date) g/dL unknown) (unknown) (no (unknown) (unknown) Hgb 9.3 L (units (unkn own) date) (12.0-16.0) g/dL unknown) (unknown) (no (unknown) (unknown) Home Medications (units (unknown) date) unknown) (unknown) (no (unknown) (unknown) IMPRESSION:? No (units (unknown) date) acute intracranial unknown) hemorrhage is seen.? (unknown) (no (unknown) (unknown) IMPRESSION:? (units (u nknown) date) There is a mildly unknown) displaced cervical spine fracture involving the (unknown) (no (unknown) (unknown) IMPRESSION:? (units (u nknown) date) unknown) (unknown) (no (unknown) (unknown) INDICATIONS:? (units ( unknown) date) fall on thinners unknown) with neck hematoma (unknown) (no (unknown) (unknown) INDICATIONS:? (units ( unknown) date) fall on thinners unknown) (unknown) (no (unknown) (unknown) INR (0.9-1.3) (units ( unknown) date) unknown) (unknown) (no (unknown) (unknown) INR 1.9 H (units (unkn own) date) (0.9-1.3) unknown) (unknown) (no (unknown) (unknown) If it would be (units (unknown) date) helpful for unknown) clinical management decision making, please consider (unknown) (no (unknown) (unknown) Image quality:? (units (unknown) date) Excellent.? unknown) (unknown) (no (unknown) (unknown) Imaging Data (units (u nknown) date) unknown) (unknown) (no (unknown) (unknown) Initial Vital (units ( unknown) date) Signs unknown) (unknown) (no (unknown) (unknown) Initial Vital (units ( unknown) date) Signs: unknown) (unknown) (no (unknown) (unknown) [facility] (units (unknown) date) [address] unknown) [place] [address] (unknown) (no (unknown) (unknown) [facility] (units (unknown) date) unknown) (unknown) (no (unknown) (unknown) Lab Data (units (unkno wn) date) unknown) (unknown) (no (unknown) (unknown) Lab Results (units (un known) date) unknown) (unknown) (no (unknown) (unknown) Lab results (units (un known) date) reviewed: Yes I unknown) reviewed the patient's lab results. (unknown) (no (unknown) (unknown) Labs: (units (unkno wn) date) unknown) (unknown) (no (unknown) (unknown) Last Admin: (units (un known) date) 01/09/22 15:27 unknown) Dose: 125 mls/hr (unknown) (no (unknown) (unknown) Loc: ED (units (unkno wn) date) unknown) (unknown) (no (unknown) (unknown) Lungs and pleura:? (units (unknown) date) Small right unknown) pleural effusion.? Mild nonspecific right basilar (unknown) (no (unknown) (unknown) Lymph # (Auto) (units (unknown) date) (6519-0813) /uL unknown) (unknown) (no (unknown) (unknown) Lymph # (Auto) (units (unknown) date) 800 L (0853-5184) unknown) /uL (unknown) (no (unknown) (unknown) Lymph % (Auto) (units (unknown) date) (25-40) % unknown) (unknown) (no (unknown) (unknown) Lymph % (Auto) (units (unknown) date) 10.5 L (25-40) % unknown) (unknown) (no (unknown) (unknown) MCH (26-34) PG (units (unknown) date) unknown) (unknown) (no (unknown) (unknown) MCH 27.3 (26-34) (units (unknown) date) PG unknown) (unknown) (no (unknown) (unknown) MCHC (30-36) % (units (unknown) date) unknown) (unknown) (no (unknown) (unknown) MCHC 32.6 (30-36) (units (unknown) date) % unknown) (unknown) (no (unknown) (unknown) MCV (80-100) fL (units (unknown) date) unknown) (unknown) (no (unknown) (unknown) MCV 83.8 (80-100) (units (unknown) date) fL unknown) (unknown) (no (unknown) (unknown) MR cervical spine (units (unknown) date) wo con Stat unknown) (unknown) (no (unknown) (unknown) MR#: [id number] (units (unknown) date) unknown) (unknown) (no (unknown) (unknown) Mediastinum:? (units ( unknown) date) Cardiac silhouette unknown) is mildly enlarged. (unknown) (no (unknown) (unknown) Medical Decision (units (unknown) date) Making unknown) (unknown) (no (unknown) (unknown) Medical Records (units (unknown) date) unknown) (unknown) (no (unknown) (unknown) Medical records (units (unknown) date) reviewed: Yes I unknown) reviewed the patient's medical records. (unknown) (no (unknown) (unknown) Medication (units (unk nown) date) Instructions unknown) Recorded Confirmed (unknown) (no (unknown) (unknown) Medication (units (unk nown) date) Instructions unknown) Recorded (unknown) (no (unknown) (unknown) Mode of arrival: (units (unknown) date) EMS unknown) (unknown) (no (unknown) (unknown) Moderate to (units (un known) date) severe cervical unknown) spine degenerative change can be seen, with (unknown) (no (unknown) (unknown) Harper # (Auto) (units ( unknown) date) (0-900) /uL unknown) (unknown) (no (unknown) (unknown) Harper # (Auto) 700 (units (unknown) date) (0-900) /uL unknown) (unknown) (no (unknown) (unknown) Harper % (Auto) (units ( unknown) date) (3-14) % unknown) (unknown) (no (unknown) (unknown) Harper % (Auto) 9.5 (units (unknown) date) (3-14) % unknown) (unknown) (no (unknown) (unknown) NECK CT (units (unkno wn) date) ANGIOGRAPHY:? unknown) (unknown) (no (unknown) (unknown) Neut # (Auto) (units ( unknown) date) (4909-4870) /uL unknown) (unknown) (no (unknown) (unknown) Neut # (Auto) (units ( unknown) date) 5700 (3462-8681) unknown) /uL (unknown) (no (unknown) (unknown) Neut % (Auto) (units ( unknown) date) (50-75) % unknown) (unknown) (no (unknown) (unknown) Neut % (Auto) (units ( unknown) date) 78.7 H (50-75) % unknown) (unknown) (no (unknown) (unknown) No Action (units (unkn own) date) unknown) (unknown) (no (unknown) (unknown) No acute (units (unkno wn) date) intracranial unknown) process is seen.? (unknown) (no (unknown) (unknown) No (units (unkno wn) date) unknown) (unknown) (no (unknown) (unknown) Nodular (units (unkno wn) date) unknown) (unknown) (no (unknown) (unknown) Noncontrast 4.5 (units (unknown) date) mm thick angled unknown) axial sections acquired from the foramen magnum (unknown) (no (unknown) (unknown) Noncontrast (units (un known) date) images were unknown) performed earlier in the day and not repeated.? ? After (unknown) (no (unknown) (unknown) Note: Case (units (unk nown) date) discussed by unknown) telephone with Dr. Kelley at 2:32 p.m. [place] time on (unknown) (no (unknown) (unknown) January 09, (units (un known) date) unknown) (unknown) (no (unknown) (unknown) Orbits appear (units ( unknown) date) normal.? unknown) (unknown) (no (unknown) (unknown) Ordered: (units (unkno wn) date) unknown) (unknown) (no (unknown) (unknown) Ordering (units (unkno wn) date) Provider: unknown) Rick Kelley D.O. (unknown) (no (unknown) (unknown) Orders (units (unkno wn) date) unknown) 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, with moderate (unknown) (no (unknown) (unknown) Oxygen Delivery (units (unknown) date) Method 01/09/22 unknown) 13:59 (unknown) (no (unknown) (unknown) Oxygen Delivery (units (unknown) date) Method Room Air unknown) Room Air Room Air (unknown) (no (unknown) (unknown) Oxygen Delivery (units (unknown) date) Method Room Air unknown) Room Air (unknown) (no (unknown) (unknown) Oxygen Delivery (units (unknown) date) Method Room Air unknown) (unknown) (no (unknown) (unknown) Oxygen Delivery (units (unknown) date) Method unknown) (unknown) (no (unknown) (unknown) PROCEDURE:? CT (units (unknown) date) ANGIO HEAD AND unknown) NECK (unknown) (no (unknown) (unknown) PROCEDURE:? CT (units (unknown) date) HEAD/BRAIN WO CON unknown) (unknown) (no (unknown) (unknown) PROCEDURE:? XR (units (unknown) date) CHEST 1V unknown) (unknown) (no (unknown) (unknown) PT (10.1-12.7) (units (unknown) date) SECONDS unknown) (unknown) (no (unknown) (unknown) PT 22.5 H (units (unkn own) date) (10.1-12.7) unknown) SECONDS (unknown) (no (unknown) (unknown) Partial (units (unkno wn) date) Thromboplastin unknown) Time Stat (unknown) (no (unknown) (unknown) Patient: (units (unkno wn) date) Kamryn Danielle unknown) MR#: M (unknown) (no (unknown) (unknown) Patient: (units (unkno wn) date) Kamryn Danielle unknown) (unknown) (no (unknown) (unknown) Plt Count (units (unkn own) date) (150-400) X103/uL unknown) (unknown) (no (unknown) (unknown) Plt Count 194 (units ( unknown) date) (150-400) X103/uL unknown) (unknown) (no (unknown) (unknown) Posterior (units (unkn own) date) circulation:? The unknown) distal left T4 segment largely terminates in the (unknown) (no (unknown) (unknown) Posterior (units (unkno wn) date) circulation:? The unknown) origins of the vertebral arteries both appear widely (unknown) (no (unknown) (unknown) Potassium (units (unkn own) date) (3.4-5.1) mmol/L unknown) (unknown) (no (unknown) (unknown) Potassium 3.2 L (units (unknown) date) (3.4-5.1) mmol/L unknown) (unknown) (no (unknown) (unknown) Prescriptions: (units (unknown) date) unknown) (unknown) (no (unknown) (unknown) Previous Rx's (units ( unknown) date) unknown) (unknown) (no (unknown) (unknown) Procedure: CT (units ( unknown) date) angio head and unknown) neck (unknown) (no (unknown) (unknown) Procedure: CT (units ( unknown) date) head/brain wo con unknown) (unknown) (no (unknown) (unknown) Procedure: XR (units ( unknown) date) chest 1V unknown) (unknown) (no (unknown) (unknown) Prothrombin Time (units (unknown) date) INR Stat unknown) (unknown) (no (unknown) (unknown) Pulse Oximetry 96 (units (unknown) date) 97 unknown) (unknown) (no (unknown) (unknown) Pulse Oximetry 97 (units (unknown) date) 96 unknown) (unknown) (no (unknown) (unknown) Pulse Oximetry 97 (units (unknown) date) 98 unknown) (unknown) (no (unknown) (unknown) Pulse Oximetry 97 (units (unknown) date) unknown) (unknown) (no (unknown) (unknown) Pulse Oximetry 98 (units (unknown) date) 01/09/22 13:59 unknown) (unknown) (no (unknown) (unknown) Pulse Oximetry 98 (units (unknown) date) 97 97 unknown) (unknown) (no (unknown) (unknown) Pulse Oximetry 98 (units (unknown) date) 98 unknown) (unknown) (no (unknown) (unknown) Pulse Rate 87 87 (units (unknown) date) unknown) (unknown) (no (unknown) (unknown) Pulse Rate 87 92 (units (unknown) date) H unknown) (unknown) (no (unknown) (unknown) Pulse Rate 88 (units ( unknown) date) 01/09/22 13:59 unknown) (unknown) (no (unknown) (unknown) Pulse Rate 88 87 (units (unknown) date) 88 unknown) (unknown) (no (unknown) (unknown) Pulse Rate 88 91 (units (unknown) date) H unknown) (unknown) (no (unknown) (unknown) Pulse Rate 89 91 (units (unknown) date) H unknown) (unknown) (no (unknown) (unknown) Pulse Rate 92 H (units (unknown) date) 88 unknown) (unknown) (no (unknown) (unknown) RBC (4.0-5.2) (units ( unknown) date) X106/uL unknown) (unknown) (no (unknown) (unknown) RBC 3.39 L (units (unk nown) date) (4.0-5.2) X106/uL unknown) (unknown) (no (unknown) (unknown) RDW (11.6-14.8) % (units (unknown) date) unknown) (unknown) (no (unknown) (unknown) RDW 19.6 H (units (unk nown) date) (11.6-14.8) % unknown) (unknown) (no (unknown) (unknown) Radiologist's (units ( unknown) date) Impression: unknown) (unknown) (no (unknown) (unknown) Referrals: (units (unk nown) date) unknown) (unknown) (no (unknown) (unknown) Related Data (units (u nknown) date) unknown) (unknown) (no (unknown) (unknown) 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 (unknown) (no (unknown) (unknown) Respiratory Rate (units (unknown) date) 13 17 unknown) (unknown) (no (unknown) (unknown) Respiratory Rate (units (unknown) date) 18 01/09/22 13:59 unknown) (unknown) (no (unknown) (unknown) Respiratory Rate (units (unknown) date) 18 12 unknown) (unknown) (no (unknown) (unknown) Respiratory Rate (units (unknown) date) 18 17 20 unknown) (unknown) (no (unknown) (unknown) Respiratory Rate (units (unknown) date) 18 18 unknown) (unknown) (no (unknown) (unknown) Respiratory Rate (units (unknown) date) 18 21 unknown) (unknown) (no (unknown) (unknown) Respiratory Rate (units (unknown) date) 18 31 H unknown) (unknown) (no (unknown) (unknown) Result diagrams: (units (unknown) date) unknown) (unknown) (no (unknown) (unknown) Right soft tissue (units (unknown) date) neck hematoma with unknown) mild surrounding inflammatory change. (unknown) (no (unknown) (unknown) Jefry Deleon MD (units (unknown) date) [Primary Care unknown) Provider] (unknown) (no (unknown) (unknown) SWELLING (units (unkno wn) date) unknown) (unknown) (no (unknown) (unknown) Signed By: (units (unk nown) date) unknown) (unknown) (no (unknown) (unknown) Signed (units (unkno wn) date) unknown) (unknown) (no (unknown) (unknown) Sinuses:? Sinuses (units (unknown) date) and mastoids are unknown) clear.? (unknown) (no (unknown) (unknown) Sinuses:? (units (unkn own) date) Visualized sinuses unknown) and mastoids are clear.? (unknown) (no (unknown) (unknown) Skull and face:? (units (unknown) date) Calvarium and unknown) facial bones appear intact, without suspicious (unknown) (no (unknown) (unknown) Skull and face:? (units (unknown) date) Calvarium and unknown) visualized facial bones appear intact, without (unknown) (no (unknown) (unknown) Sodium (137-145) (units (unknown) date) mmol/L unknown) (unknown) (no (unknown) (unknown) Sodium 138 (units (unk nown) date) (137-145) mmol/L unknown) (unknown) (no (unknown) (unknown) Sodium Chloride (units (unknown) date) (Normal Saline unknown) 0.9%) 1,000 mls @ 125 mls/hr IV CONT BISHOP (unknown) (no (unknown) (unknown) Soft tissues:? (units (unknown) date) Focal hematoma unknown) with soft tissue swelling can be seen involving (unknown) (no (unknown) (unknown) Source: patient (units (unknown) date) and EMS unknown) (unknown) (no (unknown) (unknown) Stated complaint: (units (unknown) date) Multiple falls unknown) (unknown) (no (unknown) (unknown) Surgical changes (units (unknown) date) and devices:? Left unknown) axillary metal clips.? (unknown) (no (unknown) (unknown) TECHNIQUE:? One (units (unknown) date) view of the chest unknown) was acquired.? (unknown) (no (unknown) (unknown) TECHNIQUE:? 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0) X103/uL unknown) (unknown) (no (unknown) (unknown) XR chest 1V Stat (units (unknown) date) unknown) (unknown) (no (unknown) (unknown) XRay Report (units (un known) date) unknown) (unknown) (no (unknown) (unknown) [Embedded Image (units (unknown) date) Not Available] unknown) (unknown) (no (unknown) (unknown) a (units (unkno wn) date) unknown) (unknown) (no (unknown) (unknown) acquired from (units ( unknown) date) unknown) (unknown) (no (unknown) (unknown) administration of (units (unknown) date) intravenous unknown) contrast, 1 mm thick sections acquired from the (unknown) (no (unknown) (unknown) age, with (units (unkn own) date) unknown) (unknown) (no (unknown) (unknown) aligned.? (units (unkn own) date) unknown) (unknown) (no (unknown) (unknown) and courses.? The (units (unknown) date) bifurcation unknown) regions demonstrate generalized atherosclerotic (unknown) (no (unknown) (unknown) and neck (units (unkno wn) date) separately. For unknown) radiation dose reduction, the following was used:? (unknown) (no (unknown) (unknown) and (units (unkno wn) date) unknown) (unknown) (no (unknown) (unknown) and/or volume (units ( unknown) date) rendering unknown) reformats were acquired of the central intracranial (unknown) (no (unknown) (unknown) aneurysms are (units ( unknown) date) seen.? unknown) (unknown) (no (unknown) (unknown) anterior cerebral (units (unknown) date) arteries is normal unknown) and symmetric.? The flow within the middle (unknown) (no (unknown) (unknown) aortic arch (units (un known) date) unknown) (unknown) (no (unknown) (unknown) appear (units (unkno wn) date) unknown) (unknown) (no (unknown) (unknown) appearing (units (unkn own) date) unknown) (unknown) (no (unknown) (unknown) appears intact.? 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 (unknown) (no (unknown) (unknown) arise from (units (unk nown) date) unknown) (unknown) (no (unknown) (unknown) arteries is (units (un known) date) normal and unknown) symmetric.? The anterior communicating artery is seen.? (unknown) (no (unknown) (unknown) arteries, (units (unkn own) date) unknown) (unknown) (no (unknown) (unknown) arteries. (units (unkn own) date) unknown) (unknown) (no (unknown) (unknown) aspect of the C5 (units (unknown) date) vertebral body. unknown) (unknown) (no (unknown) (unknown) at C5-C6, as on (units (unknown) date) series 14, images unknown) 45-46. (unknown) (no (unknown) (unknown) atherosclerotic (units (unknown) date) calcification, unknown) with up to 70% narrowing.? There is a normal (unknown) (no (unknown) (unknown) atherosclerotic (units (unknown) date) unknown) (unknown) (no (unknown) (unknown) automated (units (unkn own) date) unknown) (unknown) (no (unknown) (unknown) axial (units (unkno wn) date) unknown) (unknown) (no (unknown) (unknown) basilar artery.? (units (unknown) date) Flow within the unknown) posterior cerebral arteries is normal and (unknown) (no (unknown) (unknown) bridging (units (unkno wn) date) osteophytes.? The unknown) disc spaces are relatively well preserved.? There is (unknown) (no (unknown) (unknown) calcification and (units (unknown) date) irregularity, with unknown) 80-90% narrowing seen both proximal (unknown) (no (unknown) (unknown) calcification, (units (unknown) date) with 60-70% unknown) narrowing seen on each side.? The flow within the (unknown) (no (unknown) (unknown) caliber (units (unkno wn) date) unknown) (unknown) (no (unknown) (unknown) carotid arteries (units (unknown) date) appear patent.? unknown) The common carotid arteries demonstrate normal (unknown) (no (unknown) (unknown) central canal (units ( unknown) date) narrowing at unknown) C5-C6. (unknown) (no (unknown) (unknown) cerebral (units (unkno wn) date) unknown) (unknown) (no (unknown) (unknown) chest wall (units (unk nown) date) calcifications or unknown) pulmonary nodules or objects external to the (unknown) (no (unknown) (unknown) clopidogrel 75 mg (units (unknown) date) tablet (Plavix) 75 unknown) mg PO QDAY ##0 08/06/16 (unknown) (no (unknown) (unknown) clopidogrel (units (un known) date) [Plavix] 75 MG unknown) tablet (unknown) (no (unknown) (unknown) codeine [CODEINE] (units (unknown) date) Allergy Severe unknown) ORAL Verified 01/09/22 14:22 (unknown) (no (unknown) (unknown) common (units (unkno wn) date) unknown) (unknown) (no (unknown) (unknown) congested. (units (unk nown) date) unknown) (unknown) (no (unknown) (unknown) contraindication) (units (unknown) date) .? unknown) (unknown) (no (unknown) (unknown) dedicated (units (unkn own) date) cervical spine MRI unknown) for further evaluation (assuming that there is no (unknown) (no (unknown) (unknown) demonstrate (units (un known) date) unknown) (unknown) (no (unknown) (unknown) dimension. (units (unk nown) date) unknown) (unknown) (no (unknown) (unknown) elements do not (units (unknown) date) appear involved. unknown) (unknown) (no (unknown) (unknown) exposure control, (units (unknown) date) adjustment of mA unknown) and/or kV according to patient size.? (unknown) (no (unknown) (unknown) extra-axial fluid (units (unknown) date) collections.? unknown) (unknown) (no (unknown) (unknown) following (units (unkn own) date) unknown) (unknown) (no (unknown) (unknown) frontal (units (unkno wn) date) unknown) (unknown) (no (unknown) (unknown) glimepiride 2 mg (units (unknown) date) tablet (Amaryl) 2 unknown) mg PO BID ##0 08/20/16 (unknown) (no (unknown) (unknown) glimepiride (units (un known) date) [Amaryl] 2 MG unknown) tablet (unknown) (no (unknown) (unknown) hydrocodone 5 (units ( unknown) date) mg-acetaminophen unknown) 325 1 tab PO Q4HP PRN #30 tabs 08/21/16 (unknown) (no (unknown) (unknown) hydrocodone-aceta (units (unknown) date) minophen [[place]] 5 unknown) MG/325 MG tablet (unknown) (no (unknown) (unknown) hyperostosis (units (u nknown) date) unknown) (unknown) (no (unknown) (unknown) infarction seen, (units (unknown) date) with focal volume unknown) loss and encephalomalacia.? There is (unknown) (no (unknown) (unknown) inferior (units (unkno wn) date) unknown) (unknown) (no (unknown) (unknown) interface (units (unkn own) date) unknown) (unknown) (no (unknown) (unknown) internal carotid (units (unknown) date) artery unknown) atherosclerosis.? (unknown) (no (unknown) (unknown) internal carotid (units (unknown) date) unknown) (unknown) (no (unknown) (unknown) intracranial (units (u nknown) date) unknown) (unknown) (no (unknown) (unknown) is also made with (units (unknown) date) the prior outside unknown) cervical spine CT examinations 01/07/2022 (unknown) (no (unknown) (unknown) lateral neck (units (un known) date) superiorly.? The unknown) hematoma itself measures 3.2 by 1.8 cm in greatest (unknown) (no (unknown) (unknown) left (units (unkno wn) date) unknown) (unknown) (no (unknown) (unknown) left. (units (unkno wn) date) unknown) (unknown) (no (unknown) (unknown) lesions.? (units (unkn own) date) unknown) (unknown) (no (unknown) (unknown) matter chronic (units (unknown) date) small vessel unknown) ischemic changes.? There is a remote right superior (unknown) (no (unknown) (unknown) may represent (units ( unknown) date) atelectasis, unknown) aspiration or pneumonia not excludable. (unknown) (no (unknown) (unknown) mg tablet ([place]) (units (unknown) date) unknown) (unknown) (no (unknown) (unknown) mildly (units (unkno wn) date) unknown) (unknown) (no (unknown) (unknown) narrowing seen (units (unknown) date) unknown) (unknown) (no (unknown) (unknown) normal courses (units (unknown) date) and calibers.? The unknown) right vertebral artery is dominant to the (unknown) (no (unknown) (unknown) opacities project (units (unknown) date) over the left mid unknown) lung, approximately 2 centimeters each (unknown) (no (unknown) (unknown) opacities.? No (units (unknown) date) pneumothorax.? unknown) Pulmonary vasculature appears prominent. two? (unknown) (no (unknown) (unknown) paired (units (unkno wn) date) unknown) (unknown) (no (unknown) (unknown) patent.? No (units (un known) date) unknown) (unknown) (no (unknown) (unknown) patent.? (units (unkno wn) date) unknown) (unknown) (no (unknown) (unknown) patient (units (unkno wn) date) unknown) (unknown) (no (unknown) (unknown) patient.? CT of (units (unknown) date) unknown) (unknown) (no (unknown) (unknown) posterior (units (unkn own) date) inferior unknown) cerebellar artery. (unknown) (no (unknown) (unknown) posterior (units (unkn own) date) inferior unknown) cerebellar artery.? The right V4 segment demonstrates focal (unknown) (no (unknown) (unknown) posterior (units (unkn own) date) unknown) (unknown) (no (unknown) (unknown) present which (units ( unknown) date) unknown) (unknown) (no (unknown) (unknown) prominent (units (unkn own) date) unknown) (unknown) (no (unknown) (unknown) relatively (units (unkn own) date) prominent unknown) ossification of the posterior longitudinal ligament seen C5 (unknown) (no (unknown) (unknown) represent (units (unkn own) date) unknown) (unknown) (no (unknown) (unknown) resultant (units (unkno wn) date) ventricular and unknown) sulcal prominence.? There are periventricular and deep (unknown) (no (unknown) (unknown) seen (units (unkno wn) date) unknown) (unknown) (no (unknown) (unknown) shrimp [SHRIMP] (units (unknown) date) AdvReac unknown) Intermediate VOMITING Verified 01/09/22 14:22 (unknown) (no (unknown) (unknown) size.? (units (unkno wn) date) unknown) (unknown) (no (unknown) (unknown) suspicious (units (unk nown) date) unknown) (unknown) (no (unknown) (unknown) symmetric.? No (units (unknown) date) unknown) (unknown) (no (unknown) (unknown) the aortic arch. (units (unknown) date) Atherosclerotic unknown) calcification is noted.? ? The origins of the (unknown) (no (unknown) (unknown) the chest could (units (unknown) date) be obtained as unknown) clinically indicated.? (unknown) (no (unknown) (unknown) the foramen (units (un known) date) magnum to the unknown) vertex.? 3-dimensional maximum-intensity- projection (unknown) (no (unknown) (unknown) the right (units (unkn own) date) unknown) (unknown) (no (unknown) (unknown) the (units (unkno wn) date) unknown) (unknown) (no (unknown) (unknown) through the (units (un known) date) [place].? unknown) Post-contrast 4.5 mm thick sections then re (unknown) (no (unknown) (unknown) through the (units (un known) date) vertebral body, unknown) and also involving the prominent osteophytes.? The (unknown) (no (unknown) (unknown) through (units (unkno wn) date) unknown) (unknown) (no (unknown) (unknown) to severe (units (unkn own) date) unknown) (unknown) (no (unknown) (unknown) to the (units (unkno wn) date) unknown) (unknown) (no (unknown) (unknown) unremarkable.? (units (unknown) date) unknown) (unknown) (no (unknown) (unknown) vasculature (units (un known) date) unknown) (unknown) (no (unknown) (unknown) ventricles are (units (unknown) date) symmetric in size unknown) and shape.? (unknown) (no (unknown) (unknown) vertex, with (units (u nknown) date) coronal and unknown) sagittal reformats.? For radiation dose reduction, the (unknown) (no (unknown) (unknown) was used:? (units (unk nown) date) automated exposure unknown) control, adjustment of mA and/or kV according to (unknown) (no (unknown) (unknown) white (units (unkno wn) date) unknown) (unknown) (no (unknown) (unknown) with 60-70% (units (un known) date) narrowing seen on unknown) each side. Result panel 57 (unknown) (no (unknown) (unknown) (no value) (units (unk nown) date) unknown) (unknown) (no (unknown) (unknown) (DISH).? (units (unkno wn) date) unknown) (unknown) (no (unknown) (unknown) (MIP) (units (unkno wn) date) unknown) (unknown) (no (unknown) (unknown) [phone] (units (unkn own) date) unknown) (unknown) (no (unknown) (unknown) 1 tab PO Q4HP (units ( unknown) date) PRNQty: 30 0RF unknown) (unknown) (no (unknown) (unknown) 1. Horizontally (units (unknown) date) oriented C5 unknown) fracture which likely extends into the bilateral (unknown) (no (unknown) (unknown) 1. Small right (units (unknown) date) pleural effusion.? unknown) Nonspecific right basilar opacities are (unknown) (no (unknown) (unknown) 01/09/22 01/09/22 (units (unknown) date) 01/09/22 unknown) Range/Units (unknown) (no (unknown) (unknown) 01/09/22 13:57 (units (unknown) date) unknown) (unknown) (no (unknown) (unknown) 01/09/22 14:06 (units (unknown) date) unknown) (unknown) (no (unknown) (unknown) 01/09/22 14:15 (units (unknown) date) unknown) (unknown) (no (unknown) (unknown) 01/09/22 14:17 (units (unknown) date) unknown) (unknown) (no (unknown) (unknown) 01/09/22 14:30 (units (unknown) date) unknown) (unknown) (no (unknown) (unknown) 01/09/22 15:47 (units (unknown) date) unknown) (unknown) (no (unknown) (unknown) 01/09/22 17:26 (units (unknown) date) unknown) (unknown) (no (unknown) (unknown) 01/09/22 17:33 (units (unknown) date) unknown) (unknown) (no (unknown) (unknown) 01/09/22 (units (unkno wn) date) Range/Units unknown) (unknown) (no (unknown) (unknown) 01/09/22 (units (unkno wn) date) unknown) (unknown) (no (unknown) (unknown) [address] [place] [address] (units (unknown) date) unknown) (unknown) (no (unknown) (unknown) 13:57 13:57 13:57 (units (unknown) date) unknown) (unknown) (no (unknown) (unknown) 13:59 01/09/22 (units (unknown) date) unknown) (unknown) (no (unknown) (unknown) 14:00 (units (unkno wn) date) unknown) (unknown) (no (unknown) (unknown) 14:01 01/09/22 (units (unknown) date) unknown) (unknown) (no (unknown) (unknown) 14:30 (units (unkno wn) date) unknown) (unknown) (no (unknown) (unknown) 14:31 01/09/22 (units (unknown) date) unknown) (unknown) (no (unknown) (unknown) 15:00 (units (unkno wn) date) unknown) (unknown) (no (unknown) (unknown) 15:30 01/09/22 (units (unknown) date) unknown) (unknown) (no (unknown) (unknown) 16:32 01/09/22 (units (unknown) date) unknown) (unknown) (no (unknown) (unknown) 16:34 01/09/22 (units (unknown) date) unknown) (unknown) (no (unknown) (unknown) 16:34 (units (unkno wn) date) unknown) (unknown) (no (unknown) (unknown) 16:59 01/09/22 (units (unknown) date) unknown) (unknown) (no (unknown) (unknown) 16:59 (units (unkno wn) date) unknown) (unknown) (no (unknown) (unknown) 17:00 01/09/22 (units (unknown) date) unknown) (unknown) (no (unknown) (unknown) 17:01 01/09/22 (units (unknown) date) unknown) (unknown) (no (unknown) (unknown) 17:01 (units (unkno wn) date) unknown) (unknown) (no (unknown) (unknown) 2 mg PO BID Qty: (units (unknown) date) 0 unknown) (unknown) (no (unknown) (unknown) 2. Cardiac (units (unk nown) date) silhouette is unknown) mildly enlarged and pulmonary vasculature appears (unknown) (no (unknown) (unknown) 2. Severe (units (unkn own) date) degenerative unknown) change, posterior disc osteophyte complexes, and severe (unknown) (no (unknown) (unknown) 2021. ? (units (unkno wn) date) unknown) (unknown) (no (unknown) (unknown) 3. Extensive (units (u nknown) date) edema throughout unknown) the surrounding paraspinous musculature.? (unknown) (no (unknown) (unknown) 3. Nodular (units (unk nown) date) opacities project unknown) over the left mid lung, nonspecific.? These could (unknown) (no (unknown) (unknown) 07/25/2021.? (units (un known) date) unknown) (unknown) (no (unknown) (unknown) 75 mg PO QDAY (units ( unknown) date) Qty: 0 unknown) (unknown) (no (unknown) (unknown) 80-90% narrowing (units (unknown) date) can be seen unknown) involving both proximal internal carotid arteries. (unknown) (no (unknown) (unknown) ? (units (unkno wn) date) unknown) (unknown) (no (unknown) (unknown) APTT (26-36) (units (u nknown) date) SECONDS unknown) (unknown) (no (unknown) (unknown) APTT 29 (26-36) (units (unknown) date) SECONDS unknown) (unknown) (no (unknown) (unknown) Accession Number: (units (unknown) date) [id number] ?? unknown) (unknown) (no (unknown) (unknown) Accession Number: (units (unknown) date) [id number] ?? unknown) (unknown) (no (unknown) (unknown) Accession Number: (units (unknown) date) [id number] ?? unknown) (unknown) (no (unknown) (unknown) Accession Number: (units (unknown) date) [id number] ?? unknown) (unknown) (no (unknown) (unknown) Acct:[id number] (units (unknown) date) unknown) (unknown) (no (unknown) (unknown) Age/Sex: 81 / F (units (unknown) date) unknown) (unknown) (no (unknown) (unknown) Allergies (units (unkn own) date) unknown) (unknown) (no (unknown) (unknown) Allergy/AdvReac (units (unknown) date) Type Severity unknown) Reaction Status Date / Time (unknown) (no (unknown) (unknown) Along the (units (unkn own) date) inferior aspect of unknown) the C5 level, there is a mildly displaced fracture (unknown) (no (unknown) (unknown) [place], [place] (units ( unknown) date) [id number] unknown) (unknown) (no (unknown) (unknown) Anatomic variant (units (unknown) date) noted of the left unknown) V4 segment largely terminating the in the (unknown) (no (unknown) (unknown) Anterior (units (unkno wn) date) circulation:? unknown) Intracranial internal carotid arteries demonstrate (unknown) (no (unknown) (unknown) Antibody Screen (units (unknown) date) Negative unknown) (unknown) (no (unknown) (unknown) Antibody Screen (units (unknown) date) unknown) (unknown) (no (unknown) (unknown) Any quantitative (units (unknown) date) measurements of unknown) stenosis were performed using NASCET criteria.? (unknown) (no (unknown) (unknown) Approved by: (units (u nknown) date) ranjith Llamas M.D. on 01/09/2022 at 15:23 (unknown) (no (unknown) (unknown) Approved by: (units (u nknown) date) soila Goss) Carole on 01/09/2022 at 14:25?? (unknown) (no (unknown) (unknown) Approved by: (units (u nknown) date) ranjith Goss M.D. on 01/09/2022 at 14:41? (unknown) (no (unknown) (unknown) Approved by: Edna (units (unknown) date) Carole Alan on unknown) 01/09/2022 at 16:49? (unknown) (no (unknown) (unknown) Atrial (units (unkno wn) date) fibrillation unknown) (unknown) (no (unknown) (unknown) Attestation: I (units (unknown) date) personally unknown) reviewed and interpreted this ECG as follows: (unknown) (no (unknown) (unknown) BRAIN:? (units (unkno wn) date) unknown) (unknown) (no (unknown) (unknown) BUN (7-17) mg/dL (units (unknown) date) unknown) (unknown) (no (unknown) (unknown) BUN 28 H (7-17) (units (unknown) date) mg/dL unknown) (unknown) (no (unknown) (unknown) BUN/Creatinine (units (unknown) date) Ratio (6-22) unknown) (unknown) (no (unknown) (unknown) BUN/Creatinine (units (unknown) date) Ratio 31.5 H unknown) (6-22) (unknown) (no (unknown) (unknown) Basic Metabolic (units (unknown) date) Panel Stat unknown) (unknown) (no (unknown) (unknown) Baso # (Auto) (units ( unknown) date) (0-100) /uL unknown) (unknown) (no (unknown) (unknown) Baso # (Auto) 0 (units (unknown) date) (0-100) /uL unknown) (unknown) (no (unknown) (unknown) Baso % (Auto) (units ( unknown) date) (0-2) % unknown) (unknown) (no (unknown) (unknown) Baso % (Auto) 0.5 (units (unknown) date) (0-2) % unknown) (unknown) (no (unknown) (unknown) Blood Pressure (units (unknown) date) 136/66 01/09/22 unknown) 13:59 (unknown) (no (unknown) (unknown) Blood Pressure (units (unknown) date) 136/66 unknown) (unknown) (no (unknown) (unknown) Blood Pressure (units (unknown) date) 162/70 H unknown) (unknown) (no (unknown) (unknown) Blood Pressure (units (unknown) date) 169/76 H unknown) (unknown) (no (unknown) (unknown) Blood Pressure (units (unknown) date) 172/75 H unknown) (unknown) (no (unknown) (unknown) Blood Pressure (units (unknown) date) 177/74 H unknown) (unknown) (no (unknown) (unknown) Blood Pressure (units (unknown) date) 190/84 H unknown) (unknown) (no (unknown) (unknown) Blood Type A (units (u nknown) date) Positive unknown) (unknown) (no (unknown) (unknown) Blood Type (units (unk nown) date) unknown) (unknown) (no (unknown) (unknown) Bones and chest (units (unknown) date) wall:? No unknown) suspicious bony lesions.? Overlying soft tissues (unknown) (no (unknown) (unknown) Bones:? No (units (unk nown) date) suspicious bony unknown) lesions.? Visualized cervical spine appears normally (unknown) (no (unknown) (unknown) Brain:? No (units (unk nown) date) intracranial unknown) bleeds or masses.? There is cerebral volume loss for (unknown) (no (unknown) (unknown) Brain:? No (units (unk nown) date) midline shift.? No unknown) intracranial bleeds or masses.? Cortes-white matter (unknown) (no (unknown) (unknown) C7, as on series (units (unknown) date) 16 image 33.? unknown) There is moderate to severe central canal (unknown) (no (unknown) (unknown) COMPARISON:? (units (u nknown) date) [facility], unknown) CT, CT ANGIO HEAD AND NECK, 01/09/2022, 15:03. (unknown) (no (unknown) (unknown) COMPARISON:? (units (u nknown) date) [facility], unknown) CT, CT ANGIO HEAD AND NECK, 01/09/2022, 15:03.? (unknown) (no (unknown) (unknown) COMPARISON:? (units (u nknown) date) [facility], unknown) CT, CT HEAD/BRAIN WO CON, 01/09/2022, 15:03.? (unknown) (no (unknown) (unknown) COMPARISON:? (units (u nknown) date) None. unknown) (unknown) (no (unknown) (unknown) COVID19 -Nasal (units (unknown) date) RAPID/Pre-Proc unknown) Stat (unknown) (no (unknown) (unknown) CSF spaces:? (units (u nknown) date) Basal cisterns are unknown) patent.? No extra-axial fluid collections.? The (unknown) (no (unknown) (unknown) CSF spaces:? (units (u nknown) date) Ventricles are unknown) normal in size and shape.? Basal cisterns are (unknown) (no (unknown) (unknown) CT Scan Report (units (unknown) date) unknown) (unknown) (no (unknown) (unknown) CT abdomen pelvis (units (unknown) date) w con Stat unknown) (unknown) (no (unknown) (unknown) CT angio head and (units (unknown) date) neck Stat unknown) (unknown) (no (unknown) (unknown) CT head/brain wo (units (unknown) date) con Stat unknown) (unknown) (no (unknown) (unknown) CT scan - head: (units (unknown) date) unknown) (unknown) (no (unknown) (unknown) CTA - brain/neck: (units (unknown) date) unknown) (unknown) (no (unknown) (unknown) Calcium (units (unkno wn) date) (8.4-10.2) mg/dL unknown) (unknown) (no (unknown) (unknown) Calcium 8.8 (units (un known) date) (8.4-10.2) mg/dL unknown) (unknown) (no (unknown) (unknown) Carbon Dioxide (units (unknown) date) (22-32) mmol/L unknown) (unknown) (no (unknown) (unknown) Carbon Dioxide 34 (units (unknown) date) H (22-32) mmol/L unknown) (unknown) (no (unknown) (unknown) Carotid system:? (units (unknown) date) The great vessels unknown) demonstrate a conventional anatomy as they (unknown) (no (unknown) (unknown) Chest x-ray: (units (u nknown) date) unknown) (unknown) (no (unknown) (unknown) Chief complaint: (units (unknown) date) Weakness unknown) (unknown) (no (unknown) (unknown) Chloride (98-107) (units (unknown) date) mmol/L unknown) (unknown) (no (unknown) (unknown) Chloride 96 L (units ( unknown) date) (98-107) mmol/L unknown) (unknown) (no (unknown) (unknown) Complete Blood (units (unknown) date) Count AUTO DIFF unknown) Stat (unknown) (no (unknown) (unknown) Correlation (units (un known) date) unknown) (unknown) (no (unknown) (unknown) Course (units (unkno wn) date) unknown) (unknown) (no (unknown) (unknown) Creatinine (units (unk nown) date) (0.52-1.04) mg/dL unknown) (unknown) (no (unknown) (unknown) Creatinine 0.89 (units (unknown) date) (0.52-1.04) mg/dL unknown) (unknown) (no (unknown) (unknown) : 1940 (units (unknown) date) Acct:[id number] unknown) (unknown) (no (unknown) (unknown) : 1940 (units (unknown) date) unknown) (unknown) (no (unknown) (unknown) Date of Service: (units (unknown) date) 01/09/22 unknown) (unknown) (no (unknown) (unknown) Dense (units (unkno wn) date) calcification can unknown) be seen involving the intracranial internal carotid (unknown) (no (unknown) (unknown) Departure (units (unkn own) date) unknown) (unknown) (no (unknown) (unknown) Dictated by: (units (u nknown) date) Jd Baker, ranjith Lam on 01/09/2022 at 15:19 ? ? (unknown) (no (unknown) (unknown) Dictated by: (units (u nknown) date) Boris Cardona, soila) Carole on 01/09/2022 at 14:24 ? ? (unknown) (no (unknown) (unknown) Dictated by: (units (u nknown) date) Boris Cardona, soila) Carole on 01/09/2022 at 14:26 ? ? (unknown) (no (unknown) (unknown) Dictated by: Edna (units (unknown) date) Carole Alan on unknown) 01/09/2022 at 16:38 ? ? (unknown) (no (unknown) (unknown) Discharge Plan (units (unknown) date) unknown) (unknown) (no (unknown) (unknown) Documented By: KF (units (unknown) date) unknown) (unknown) (no (unknown) (unknown) ECG Data (units (unkno wn) date) unknown) (unknown) (no (unknown) (unknown) ED Orders (units (unkn own) date) unknown) (unknown) (no (unknown) (unknown) EKG-12 Lead (units (un known) date) Routine unknown) (unknown) (no (unknown) (unknown) ER Physician: (units ( unknown) date) Rick Kelley unknown) D.OAdrian (unknown) (no (unknown) (unknown) Emergency Report (units (unknown) date) unknown) (unknown) (no (unknown) (unknown) Emergent (units (unkno wn) date) unknown) (unknown) (no (unknown) (unknown) Eos # (Auto) (units (u nknown) date) (0-450) /uL unknown) (unknown) (no (unknown) (unknown) Eos # (Auto) 100 (units (unknown) date) (0-450) /uL unknown) (unknown) (no (unknown) (unknown) Eos % (Auto) (units (u nknown) date) (2-4) % unknown) (unknown) (no (unknown) (unknown) Eos % (Auto) 0.8 (units (unknown) date) L (2-4) % unknown) (unknown) (no (unknown) (unknown) Estimated GFR > (units (unknown) date) 60 (>60) mL/min unknown) (unknown) (no (unknown) (unknown) Estimated GFR (units ( unknown) date) (>60) mL/min unknown) (unknown) (no (unknown) (unknown) Exam (units (unkno wn) date) unknown) (unknown) (no (unknown) (unknown) FINDINGS:? (units (unk nown) date) unknown) (unknown) (no (unknown) (unknown) General (units (unkno wn) date) unknown) (unknown) (no (unknown) (unknown) Glucose (80-110) (units (unknown) date) mg/dL unknown) (unknown) (no (unknown) (unknown) Glucose 149 H (units ( unknown) date) (80-110) mg/dL unknown) (unknown) (no (unknown) (unknown) HEAD CT (units (unkno wn) date) ANGIOGRAPHY:? unknown) (unknown) (no (unknown) (unknown) HPI - General (units ( unknown) date) Adult unknown) (unknown) (no (unknown) (unknown) Hct (36-46) % (units ( unknown) date) unknown) (unknown) (no (unknown) (unknown) Hct 28.4 L (units (unk nown) date) (36-46) % unknown) (unknown) (no (unknown) (unknown) Hgb (12.0-16.0) (units (unknown) date) g/dL unknown) (unknown) (no (unknown) (unknown) Hgb 9.3 L (units (unkn own) date) (12.0-16.0) g/dL unknown) (unknown) (no (unknown) (unknown) Home Medications (units (unknown) date) unknown) (unknown) (no (unknown) (unknown) Hospital, MR, (units ( unknown) date) C-SPINE WITHOUT unknown) CONTRAST, 10/10/2015, 7:42. (unknown) (no (unknown) (unknown) IMPRESSION:? No (units (unknown) date) acute intracranial unknown) hemorrhage is seen.? (unknown) (no (unknown) (unknown) IMPRESSION:? (units (u nknown) date) There is a mildly unknown) displaced cervical spine fracture involving the (unknown) (no (unknown) (unknown) IMPRESSION:? (units (u nknown) date) unknown) (unknown) (no (unknown) (unknown) INDICATIONS:? (units ( unknown) date) C5Fx with UE unknown) weakness (unknown) (no (unknown) (unknown) INDICATIONS:? (units ( unknown) date) fall on thinners unknown) with neck hematoma (unknown) (no (unknown) (unknown) INDICATIONS:? (units ( unknown) date) fall on thinners unknown) (unknown) (no (unknown) (unknown) INR (0.9-1.3) (units ( unknown) date) unknown) (unknown) (no (unknown) (unknown) INR 1.9 H (units (unkn own) date) (0.9-1.3) unknown) (unknown) (no (unknown) (unknown) If it would be (units (unknown) date) helpful for unknown) clinical management decision making, please consider (unknown) (no (unknown) (unknown) Image quality:? (units (unknown) date) Adequate for unknown) evaluation. (unknown) (no (unknown) (unknown) Image quality:? (units (unknown) date) Excellent.? unknown) (unknown) (no (unknown) (unknown) Imaging Data (units (u nknown) date) unknown) (unknown) (no (unknown) (unknown) Initial Vital (units ( unknown) date) Signs unknown) (unknown) (no (unknown) (unknown) Initial Vital (units ( unknown) date) Signs: unknown) (unknown) (no (unknown) (unknown) Interpretation: (units (unknown) date) unknown) (unknown) (no (unknown) (unknown) [facility] (units (unknown) date) [address] unknown) [place] [address] (unknown) (no (unknown) (unknown) [facility] (units (unknown) date) unknown) (unknown) (no (unknown) (unknown) [place] (units (unkno wn) date) unknown) (unknown) (no (unknown) (unknown) Lab Data (units (unkno wn) date) unknown) (unknown) (no (unknown) (unknown) Lab Results (units (un known) date) unknown) (unknown) (no (unknown) (unknown) Lab results (units (un known) date) reviewed: Yes I unknown) reviewed the patient's lab results. (unknown) (no (unknown) (unknown) Labs: (units (unkno wn) date) unknown) (unknown) (no (unknown) (unknown) Last Admin: (units (un known) date) 01/09/22 15:27 unknown) Dose: 125 mls/hr (unknown) (no (unknown) (unknown) Loc: ED (units (unkno wn) date) unknown) (unknown) (no (unknown) (unknown) Lungs and pleura:? (units (unknown) date) Small right unknown) pleural effusion.? Mild nonspecific right basilar (unknown) (no (unknown) (unknown) Lymph # (Auto) (units (unknown) date) (0768-7081) /uL unknown) (unknown) (no (unknown) (unknown) Lymph # (Auto) (units (unknown) date) 800 L (9981-8620) unknown) /uL (unknown) (no (unknown) (unknown) Lymph % (Auto) (units (unknown) date) (25-40) % unknown) (unknown) (no (unknown) (unknown) Lymph % (Auto) (units (unknown) date) 10.5 L (25-40) % unknown) (unknown) (no (unknown) (unknown) MCH (26-34) PG (units (unknown) date) unknown) (unknown) (no (unknown) (unknown) MCH 27.3 (26-34) (units (unknown) date) PG unknown) (unknown) (no (unknown) (unknown) MCHC (30-36) % (units (unknown) date) unknown) (unknown) (no (unknown) (unknown) MCHC 32.6 (30-36) (units (unknown) date) % unknown) (unknown) (no (unknown) (unknown) MCV (80-100) fL (units (unknown) date) unknown) (unknown) (no (unknown) (unknown) MCV 83.8 (80-100) (units (unknown) date) fL unknown) (unknown) (no (unknown) (unknown) MR cervical spine (units (unknown) date) wo con Stat unknown) (unknown) (no (unknown) (unknown) MR#: [id number] (units (unknown) date) unknown) (unknown) (no (unknown) (unknown) MRI cervical: (units ( unknown) date) unknown) (unknown) (no (unknown) (unknown) Magnetic (units (unkno wn) date) Resonance Report unknown) (unknown) (no (unknown) (unknown) Mediastinum:? (units ( unknown) date) Cardiac silhouette unknown) is mildly enlarged. (unknown) (no (unknown) (unknown) Medical Decision (units (unknown) date) Making unknown) (unknown) (no (unknown) (unknown) Medical Records (units (unknown) date) unknown) (unknown) (no (unknown) (unknown) Medical records (units (unknown) date) reviewed: Yes I unknown) reviewed the patient's medical records. (unknown) (no (unknown) (unknown) Medication (units (unk nown) date) Instructions unknown) Recorded Confirmed (unknown) (no (unknown) (unknown) Medication (units (unk nown) date) Instructions unknown) Recorded (unknown) (no (unknown) (unknown) Mode of arrival: (units (unknown) date) EMS unknown) (unknown) (no (unknown) (unknown) Moderate to (units (un known) date) severe cervical unknown) spine degenerative change can be seen, with (unknown) (no (unknown) (unknown) Harper # (Auto) (units ( unknown) date) (0-900) /uL unknown) (unknown) (no (unknown) (unknown) Harper # (Auto) 700 (units (unknown) date) (0-900) /uL unknown) (unknown) (no (unknown) (unknown) Harper % (Auto) (units ( unknown) date) (3-14) % unknown) (unknown) (no (unknown) (unknown) Harper % (Auto) 9.5 (units (unknown) date) (3-14) % unknown) (unknown) (no (unknown) (unknown) NECK CT (units (unkno wn) date) ANGIOGRAPHY:? unknown) (unknown) (no (unknown) (unknown) Neut # (Auto) (units ( unknown) date) (1975-9504) /uL unknown) (unknown) (no (unknown) (unknown) Neut # (Auto) (units ( unknown) date) 5700 (7875-3217) unknown) /uL (unknown) (no (unknown) (unknown) Neut % (Auto) (units ( unknown) date) (50-75) % unknown) (unknown) (no (unknown) (unknown) Neut % (Auto) (units ( unknown) date) 78.7 H (50-75) % unknown) (unknown) (no (unknown) (unknown) No Action (units (unkn own) date) unknown) (unknown) (no (unknown) (unknown) No acute (units (unkno wn) date) intracranial unknown) process is seen.? (unknown) (no (unknown) (unknown) No definite cord (units (unknown) date) signal unknown) abnormality. (unknown) (no (unknown) (unknown) No (units (unkno wn) date) unknown) (unknown) (no (unknown) (unknown) Nodular (units (unkno wn) date) unknown) (unknown) (no (unknown) (unknown) Noncontrast 4.5 (units (unknown) date) mm thick angled unknown) axial sections acquired from the foramen magnum (unknown) (no (unknown) (unknown) Noncontrast (units (un known) date) images were unknown) performed earlier in the day and not repeated.? ? After (unknown) (no (unknown) (unknown) Noncontrast (units (un known) date) sagittal T1 spin unknown) echo and T2 fast spin echo, sagittal STIR, (unknown) (no (unknown) (unknown) Normal axis (units (un known) date) unknown) (unknown) (no (unknown) (unknown) Note: Case (units (unk nown) date) discussed by unknown) telephone with Dr. Kelley at 2:32 p.mAdrian [place] time on (unknown) (no (unknown) (unknown) Occasional PVC (units (unknown) date) unknown) (unknown) (no (unknown) (unknown) January 09, (units (un known) date) unknown) (unknown) (no (unknown) (unknown) Orbits appear (units ( unknown) date) normal.? unknown) (unknown) (no (unknown) (unknown) Ordered: (units (unkno wn) date) unknown) (unknown) (no (unknown) (unknown) Ordering (units (unkno wn) date) Provider: unknown) Rick Kelley D.O. (unknown) (no (unknown) (unknown) Orders (units (unkno wn) date) unknown) 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, with moderate (unknown) (no (unknown) (unknown) Oxygen Delivery (units (unknown) date) Method 01/09/22 unknown) 13:59 (unknown) (no (unknown) (unknown) Oxygen Delivery (units (unknown) date) Method Room Air unknown) Room Air Room Air (unknown) (no (unknown) (unknown) Oxygen Delivery (units (unknown) date) Method Room Air unknown) Room Air (unknown) (no (unknown) (unknown) Oxygen Delivery (units (unknown) date) Method Room Air unknown) (unknown) (no (unknown) (unknown) Oxygen Delivery (units (unknown) date) Method unknown) (unknown) (no (unknown) (unknown) PROCEDURE:? CT (units (unknown) date) ANGIO HEAD AND unknown) NECK (unknown) (no (unknown) (unknown) PROCEDURE:? CT (units (unknown) date) HEAD/BRAIN WO CON unknown) (unknown) (no (unknown) (unknown) PROCEDURE:? MR (units (unknown) date) CERVICAL SPINE WO unknown) CON (unknown) (no (unknown) (unknown) PROCEDURE:? XR (units (unknown) date) CHEST 1V unknown) (unknown) (no (unknown) (unknown) PT (10.1-12.7) (units (unknown) date) SECONDS unknown) (unknown) (no (unknown) (unknown) PT 22.5 H (units (unkn own) date) (10.1-12.7) unknown) SECONDS (unknown) (no (unknown) (unknown) Partial (units (unkno wn) date) Thromboplastin unknown) Time Stat (unknown) (no (unknown) (unknown) Patient: (units (unkno wn) date) Kamryn Danielle unknown) MR#: M (unknown) (no (unknown) (unknown) Patient: (units (unkno wn) date) Kamryn Danielle unknown) (unknown) (no (unknown) (unknown) Plt Count (units (unkn own) date) (150-400) X103/uL unknown) (unknown) (no (unknown) (unknown) Plt Count 194 (units ( unknown) date) (150-400) X103/uL unknown) (unknown) (no (unknown) (unknown) Posterior (units (unkn own) date) circulation:? The unknown) distal left T4 segment largely terminates in the (unknown) (no (unknown) (unknown) Posterior (units (unkno wn) date) circulation:? The unknown) origins of the vertebral arteries both appear widely (unknown) (no (unknown) (unknown) Potassium (units (unkn own) date) (3.4-5.1) mmol/L unknown) (unknown) (no (unknown) (unknown) Potassium 3.2 L (units (unknown) date) (3.4-5.1) mmol/L unknown) (unknown) (no (unknown) (unknown) Prescriptions: (units (unknown) date) unknown) (unknown) (no (unknown) (unknown) Previous Rx's (units ( unknown) date) unknown) (unknown) (no (unknown) (unknown) Procedure: CT (units ( unknown) date) angio head and unknown) neck (unknown) (no (unknown) (unknown) Procedure: CT (units ( unknown) date) head/brain wo con unknown) (unknown) (no (unknown) (unknown) Procedure: MR (units ( unknown) date) cervical spine wo unknown) con (unknown) (no (unknown) (unknown) Procedure: XR (units ( unknown) date) chest 1V unknown) (unknown) (no (unknown) (unknown) Prothrombin Time (units (unknown) date) INR Stat unknown) (unknown) (no (unknown) (unknown) Pulse Oximetry 96 (units (unknown) date) 97 unknown) (unknown) (no (unknown) (unknown) Pulse Oximetry 97 (units (unknown) date) 96 unknown) (unknown) (no (unknown) (unknown) Pulse Oximetry 97 (units (unknown) date) 98 unknown) (unknown) (no (unknown) (unknown) Pulse Oximetry 97 (units (unknown) date) unknown) (unknown) (no (unknown) (unknown) Pulse Oximetry 98 (units (unknown) date) 01/09/22 13:59 unknown) (unknown) (no (unknown) (unknown) Pulse Oximetry 98 (units (unknown) date) 97 97 unknown) (unknown) (no (unknown) (unknown) Pulse Oximetry 98 (units (unknown) date) 98 unknown) (unknown) (no (unknown) (unknown) Pulse Rate 87 87 (units (unknown) date) unknown) (unknown) (no (unknown) (unknown) Pulse Rate 87 92 (units (unknown) date) H unknown) (unknown) (no (unknown) (unknown) Pulse Rate 88 (units ( unknown) date) 01/09/22 13:59 unknown) (unknown) (no (unknown) (unknown) Pulse Rate 88 87 (units (unknown) date) 88 unknown) (unknown) (no (unknown) (unknown) Pulse Rate 88 91 (units (unknown) date) H unknown) (unknown) (no (unknown) (unknown) Pulse Rate 89 91 (units (unknown) date) H unknown) (unknown) (no (unknown) (unknown) Pulse Rate 92 H (units (unknown) date) 88 unknown) (unknown) (no (unknown) (unknown) RBC (4.0-5.2) (units ( unknown) date) X106/uL unknown) (unknown) (no (unknown) (unknown) RBC 3.39 L (units (unk nown) date) (4.0-5.2) X106/uL unknown) (unknown) (no (unknown) (unknown) RDW (11.6-14.8) % (units (unknown) date) unknown) (unknown) (no (unknown) (unknown) RDW 19.6 H (units (unk nown) date) (11.6-14.8) % unknown) (unknown) (no (unknown) (unknown) Radiologist's (units ( unknown) date) Impression: unknown) (unknown) (no (unknown) (unknown) Referrals: (units (unk nown) date) unknown) (unknown) (no (unknown) (unknown) Related Data (units (u nknown) date) unknown) (unknown) (no (unknown) (unknown) 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 (unknown) (no (unknown) (unknown) Respiratory Rate (units (unknown) date) 13 17 unknown) (unknown) (no (unknown) (unknown) Respiratory Rate (units (unknown) date) 18 01/09/22 13:59 unknown) (unknown) (no (unknown) (unknown) Respiratory Rate (units (unknown) date) 18 12 unknown) (unknown) (no (unknown) (unknown) Respiratory Rate (units (unknown) date) 18 17 20 unknown) (unknown) (no (unknown) (unknown) Respiratory Rate (units (unknown) date) 18 18 unknown) (unknown) (no (unknown) (unknown) Respiratory Rate (units (unknown) date) 18 21 unknown) (unknown) (no (unknown) (unknown) Respiratory Rate (units (unknown) date) 18 31 H unknown) (unknown) (no (unknown) (unknown) Result diagrams: (units (unknown) date) unknown) (unknown) (no (unknown) (unknown) Right soft tissue (units (unknown) date) neck hematoma with unknown) mild surrounding inflammatory change. (unknown) (no (unknown) (unknown) Jefry Deleon MD (units (unknown) date) [Primary Care unknown) Provider] (unknown) (no (unknown) (unknown) SWELLING (units (unkno wn) date) unknown) (unknown) (no (unknown) (unknown) Severe (units (unkno wn) date) degenerative unknown) changes are present throughout the cervical spine including (unknown) (no (unknown) (unknown) Severe (units (unkno wn) date) unknown) (unknown) (no (unknown) (unknown) Signed By: (units (unk nown) date) unknown) (unknown) (no (unknown) (unknown) Signed (units (unkno wn) date) unknown) (unknown) (no (unknown) (unknown) Sinuses:? Sinuses (units (unknown) date) and mastoids are unknown) clear.? (unknown) (no (unknown) (unknown) Sinuses:? (units (unkn own) date) Visualized sinuses unknown) and mastoids are clear.? (unknown) (no (unknown) (unknown) Skull and face:? (units (unknown) date) Calvarium and unknown) facial bones appear intact, without suspicious (unknown) (no (unknown) (unknown) Skull and face:? (units (unknown) date) Calvarium and unknown) visualized facial bones appear intact, without (unknown) (no (unknown) (unknown) Sodium (137-145) (units (unknown) date) mmol/L unknown) (unknown) (no (unknown) (unknown) Sodium 138 (units (unk nown) date) (137-145) mmol/L unknown) (unknown) (no (unknown) (unknown) Sodium Chloride (units (unknown) date) (Normal Saline unknown) 0.9%) 1,000 mls @ 125 mls/hr IV CONT BISHOP (unknown) (no (unknown) (unknown) Soft tissues:? (units (unknown) date) Focal hematoma unknown) with soft tissue swelling can be seen involving (unknown) (no (unknown) (unknown) Source: patient (units (unknown) date) and EMS unknown) (unknown) (no (unknown) (unknown) Stated complaint: (units (unknown) date) Multiple falls unknown) (unknown) (no (unknown) (unknown) Surgical changes (units (unknown) date) and devices:? Left unknown) axillary metal clips.? (unknown) (no (unknown) (unknown) TECHNIQUE:? One (units (unknown) date) view of the chest unknown) was acquired.? (unknown) (no (unknown) (unknown) TECHNIQUE:? (units (un known) date) unknown) (unknown) (no (unknown) (unknown) The more superior (units (unknown) date) extracranial unknown) portions of both vertebral arteries also (unknown) (no (unknown) (unknown) There are large (units (unknown) date) posterior disc unknown) osteophyte complexes throughout the cervical (unknown) (no (unknown) (unknown) There is an acute (units (unknown) date) compression unknown) deformity at C5 which likely extends into the (unknown) (no (unknown) (unknown) There is diffuse (units (unknown) date) edema within the unknown) anterior and posterior paraspinous (unknown) (no (unknown) (unknown) These imaging (units ( unknown) date) 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 ranjith Kelley at 4:48 p.m. on January 09, 2022. (unknown) (no (unknown) (unknown) Time Seen by (units (u nknown) date) Provider: 01/09/22 unknown) 14:06 (unknown) (no (unknown) (unknown) Type and Screen (units (unknown) date) Stat unknown) (unknown) (no (unknown) (unknown) Ventricular rate (units (unknown) date) 86 unknown) (unknown) (no (unknown) (unknown) Vital Signs - 8 (units (unknown) date) hr unknown) (unknown) (no (unknown) (unknown) Vital Signs (units (un known) date) unknown) (unknown) (no (unknown) (unknown) Vital signs: (units (u nknown) date) unknown) (unknown) (no (unknown) (unknown) WBC (4.5-11.0) (units (unknown) date) X103/uL unknown) (unknown) (no (unknown) (unknown) WBC 7.2 (units (unkno wn) date) (4.5-11.0) X103/uL unknown) (unknown) (no (unknown) (unknown) XR chest 1V Stat (units (unknown) date) unknown) (unknown) (no (unknown) (unknown) XRay Report (units (un known) date) unknown) (unknown) (no (unknown) (unknown) [Embedded Image (units (unknown) date) Not Available] unknown) (unknown) (no (unknown) (unknown) a (units (unkno wn) date) unknown) (unknown) (no (unknown) (unknown) acquired from (units ( unknown) date) unknown) (unknown) (no (unknown) (unknown) administration of (units (unknown) date) intravenous unknown) contrast, 1 mm thick sections acquired from the (unknown) (no (unknown) (unknown) age, with (units (unkn own) date) unknown) (unknown) (no (unknown) (unknown) aligned.? (units (unkn own) date) unknown) (unknown) (no (unknown) (unknown) and courses.? The (units (unknown) date) bifurcation unknown) regions demonstrate generalized atherosclerotic (unknown) (no (unknown) (unknown) and neck (units (unkno wn) date) separately. For unknown) radiation dose reduction, the following was used:? (unknown) (no (unknown) (unknown) and (units (unkno wn) date) unknown) (unknown) (no (unknown) (unknown) and/or volume (units ( unknown) date) rendering unknown) reformats were acquired of the central intracranial (unknown) (no (unknown) (unknown) aneurysms are (units ( unknown) date) seen.? unknown) (unknown) (no (unknown) (unknown) anterior cerebral (units (unknown) date) arteries is normal unknown) and symmetric.? The flow within the middle (unknown) (no (unknown) (unknown) aortic arch (units (un known) date) unknown) (unknown) (no (unknown) (unknown) appear (units (unkno wn) date) unknown) (unknown) (no (unknown) (unknown) appearing (units (unkn own) date) unknown) (unknown) (no (unknown) (unknown) appears intact.? 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 (unknown) (no (unknown) (unknown) arise from (units (unk nown) date) unknown) (unknown) (no (unknown) (unknown) arteries is (units (un known) date) normal and unknown) symmetric.? The anterior communicating artery is seen.? (unknown) (no (unknown) (unknown) arteries, (units (unkn own) date) unknown) (unknown) (no (unknown) (unknown) arteries. (units (unkn own) date) unknown) (unknown) (no (unknown) (unknown) aspect of the C5 (units (unknown) date) vertebral body. unknown) (unknown) (no (unknown) (unknown) at C5-C6, as on (units (unknown) date) series 14, images unknown) 45-46. (unknown) (no (unknown) (unknown) atherosclerotic (units (unknown) date) calcification, unknown) with up to 70% narrowing.? There is a normal (unknown) (no (unknown) (unknown) atherosclerotic (units (unknown) date) unknown) (unknown) (no (unknown) (unknown) automated (units (unkn own) date) unknown) (unknown) (no (unknown) (unknown) axial (units (unkno wn) date) unknown) (unknown) (no (unknown) (unknown) basilar artery.? (units (unknown) date) Flow within the unknown) posterior cerebral arteries is normal and (unknown) (no (unknown) (unknown) bilateral (units (unkn own) date) unknown) (unknown) (no (unknown) (unknown) body (units (unkno wn) date) unknown) (unknown) (no (unknown) (unknown) bridging (units (unkno wn) date) osteophytes.? The unknown) disc spaces are relatively well preserved.? There is (unknown) (no (unknown) (unknown) broad-based (units (un known) date) unknown) (unknown) (no (unknown) (unknown) calcification and (units (unknown) date) irregularity, with unknown) 80-90% narrowing seen both proximal (unknown) (no (unknown) (unknown) calcification, (units (unknown) date) with 60-70% unknown) narrowing seen on each side.? The flow within the (unknown) (no (unknown) (unknown) caliber (units (unkno wn) date) unknown) (unknown) (no (unknown) (unknown) canal stenosis (units (unknown) date) with deformity of unknown) the cord.? The cord measures 4 mm at its (unknown) (no (unknown) (unknown) carotid arteries (units (unknown) date) appear patent.? unknown) The common carotid arteries demonstrate normal (unknown) (no (unknown) (unknown) central canal (units ( unknown) date) narrowing at unknown) C5-C6. (unknown) (no (unknown) (unknown) cerebral (units (unkno wn) date) unknown) (unknown) (no (unknown) (unknown) cervical spine.? (units (unknown) date) unknown) (unknown) (no (unknown) (unknown) change. (units (unkno wn) date) unknown) (unknown) (no (unknown) (unknown) chest wall (units (unk nown) date) calcifications or unknown) pulmonary nodules or objects external to the (unknown) (no (unknown) (unknown) clopidogrel 75 mg (units (unknown) date) tablet (Plavix) 75 unknown) mg PO QDAY ##0 08/06/16 (unknown) (no (unknown) (unknown) clopidogrel (units (un known) date) [Plavix] 75 MG unknown) tablet (unknown) (no (unknown) (unknown) codeine [CODEINE] (units (unknown) date) Allergy Severe unknown) ORAL Verified 01/09/22 14:22 (unknown) (no (unknown) (unknown) common (units (unkno wn) date) unknown) (unknown) (no (unknown) (unknown) congested. (units (unk nown) date) unknown) (unknown) (no (unknown) (unknown) consistent with a (units (unknown) date) 3 column unknown) fracture.? This is considered an unstable fracture.? (unknown) (no (unknown) (unknown) contraindication) (units (unknown) date) .? unknown) (unknown) (no (unknown) (unknown) dedicated (units (unkn own) date) cervical spine MRI unknown) for further evaluation (assuming that there is no (unknown) (no (unknown) (unknown) degenerative (units (u nknown) date) changes are also unknown) present at C1-2 with subchondral cystic (unknown) (no (unknown) (unknown) degenerative (units (u nknown) date) unknown) (unknown) (no (unknown) (unknown) demonstrate (units (un known) date) unknown) (unknown) (no (unknown) (unknown) dimension. (units (unk nown) date) unknown) (unknown) (no (unknown) (unknown) disc bulges.? (units ( unknown) date) These findings are unknown) most severe at C4-5, C5-6, C6-7, and C7-T1.? (unknown) (no (unknown) (unknown) dislocation. (units (u nknown) date) unknown) (unknown) (no (unknown) (unknown) elements do not (units (unknown) date) appear involved. unknown) (unknown) (no (unknown) (unknown) exposure control, (units (unknown) date) adjustment of mA unknown) and/or kV according to patient size.? (unknown) (no (unknown) (unknown) extra-axial fluid (units (unknown) date) collections.? unknown) (unknown) (no (unknown) (unknown) following (units (unkn own) date) unknown) (unknown) (no (unknown) (unknown) foraminal oblique (units (unknown) date) unknown) (unknown) (no (unknown) (unknown) frontal (units (unkno wn) date) unknown) (unknown) (no (unknown) (unknown) glimepiride 2 mg (units (unknown) date) tablet (Amaryl) 2 unknown) mg PO BID ##0 08/20/16 (unknown) (no (unknown) (unknown) glimepiride (units (un known) date) [Amaryl] 2 MG unknown) tablet (unknown) (no (unknown) (unknown) height loss.? No (units (unknown) date) definite unknown) retropulsed fracture fragments.? No other fracture or (unknown) (no (unknown) (unknown) hydrocodone 5 (units ( unknown) date) mg-acetaminophen unknown) 325 1 tab PO Q4HP PRN #30 tabs 08/21/16 (unknown) (no (unknown) (unknown) hydrocodone-aceta (units (unknown) date) minophen [[place]] 5 unknown) MG/325 MG tablet (unknown) (no (unknown) (unknown) hyperostosis (units (u nknown) date) unknown) (unknown) (no (unknown) (unknown) infarction seen, (units (unknown) date) with focal volume unknown) loss and encephalomalacia.? There is (unknown) (no (unknown) (unknown) inferior (units (unkno wn) date) unknown) (unknown) (no (unknown) (unknown) interface (units (unkn own) date) unknown) (unknown) (no (unknown) (unknown) internal carotid (units (unknown) date) artery unknown) atherosclerosis.? (unknown) (no (unknown) (unknown) internal carotid (units (unknown) date) unknown) (unknown) (no (unknown) (unknown) intervertebral (units (unknown) date) disc space unknown) narrowing, disc desiccation and height loss, and (unknown) (no (unknown) (unknown) intracranial (units (u nknown) date) unknown) (unknown) (no (unknown) (unknown) is also made with (units (unknown) date) the prior outside unknown) cervical spine CT examinations 01/07/2022 (unknown) (no (unknown) (unknown) lateral neck (units (un known) date) superiorly.? The unknown) hematoma itself measures 3.2 by 1.8 cm in greatest (unknown) (no (unknown) (unknown) left (units (unkno wn) date) unknown) (unknown) (no (unknown) (unknown) left. (units (unkno wn) date) unknown) (unknown) (no (unknown) (unknown) lesions.? (units (unkn own) date) unknown) (unknown) (no (unknown) (unknown) matter chronic (units (unknown) date) small vessel unknown) ischemic changes.? There is a remote right superior (unknown) (no (unknown) (unknown) may represent (units ( unknown) date) atelectasis, unknown) aspiration or pneumonia not excludable. (unknown) (no (unknown) (unknown) mg tablet ([place]) (units (unknown) date) unknown) (unknown) (no (unknown) (unknown) mildly (units (unkno wn) date) unknown) (unknown) (no (unknown) (unknown) multilevel (units (unk nown) date) unknown) (unknown) (no (unknown) (unknown) musculature. (units (u nknown) date) unknown) (unknown) (no (unknown) (unknown) narrowest point (units (unknown) date) unknown) (unknown) (no (unknown) (unknown) narrowest (units (unkn own) date) unknown) (unknown) (no (unknown) (unknown) narrowing seen (units (unknown) date) unknown) (unknown) (no (unknown) (unknown) neurosurgical (units ( unknown) date) consultation unknown) recommended. (unknown) (no (unknown) (unknown) normal courses (units (unknown) date) and calibers.? The unknown) right vertebral artery is dominant to the (unknown) (no (unknown) (unknown) opacities project (units (unknown) date) over the left mid unknown) lung, approximately 2 centimeters each (unknown) (no (unknown) (unknown) opacities.? No (units (unknown) date) pneumothorax.? unknown) Pulmonary vasculature appears prominent. two? (unknown) (no (unknown) (unknown) paired (units (unkno wn) date) unknown) (unknown) (no (unknown) (unknown) patent.? No (units (un known) date) unknown) (unknown) (no (unknown) (unknown) patent.? (units (unkno wn) date) unknown) (unknown) (no (unknown) (unknown) patient (units (unkno wn) date) unknown) (unknown) (no (unknown) (unknown) patient.? CT of (units (unknown) date) unknown) (unknown) (no (unknown) (unknown) pedicles (units (unkno wn) date) consistent with a unknown) 3 column fracture.? There is only minimal vertebral (unknown) (no (unknown) (unknown) pedicles (units (unkno wn) date) unknown) (unknown) (no (unknown) (unknown) point posterior (units (unknown) date) to the C5-6 disc unknown) interspace.? There is extensive flattening of (unknown) (no (unknown) (unknown) posterior (units (unkn own) date) inferior unknown) cerebellar artery. (unknown) (no (unknown) (unknown) posterior (units (unkn own) date) inferior unknown) cerebellar artery.? The right V4 segment demonstrates focal (unknown) (no (unknown) (unknown) posterior to the (units (unknown) date) C5-6 disc unknown) interspace.? 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 The canal measures 4 mm at its (unknown) (no (unknown) (unknown) resultant (units (unkno wn) date) ventricular and unknown) sulcal prominence.? There are periventricular and deep (unknown) (no (unknown) (unknown) sagittal T2 fast (units (unknown) date) spin echo, and unknown) axial gradient echo or T2 fast spin echo through (unknown) (no (unknown) (unknown) seen (units (unkno wn) date) unknown) (unknown) (no (unknown) (unknown) shrimp [SHRIMP] (units (unknown) date) AdvReac unknown) Intermediate VOMITING Verified 01/09/22 14:22 (unknown) (no (unknown) (unknown) size.? (units (unkno wn) date) unknown) (unknown) (no (unknown) (unknown) spine with (units (unk nown) date) unknown) (unknown) (no (unknown) (unknown) suspicious (units (unk nown) date) unknown) (unknown) (no (unknown) (unknown) symmetric.? No (units (unknown) date) unknown) (unknown) (no (unknown) (unknown) the aortic arch. (units (unknown) date) Atherosclerotic unknown) calcification is noted.? ? The origins of the (unknown) (no (unknown) (unknown) the chest could (units (unknown) date) be obtained as unknown) clinically indicated.? (unknown) (no (unknown) (unknown) the cord.? (units (unk nown) date) unknown) (unknown) (no (unknown) (unknown) the foramen (units (un known) date) magnum to the unknown) vertex.? 3-dimensional maximum-intensity- projection (unknown) (no (unknown) (unknown) the right (units (unkn own) date) unknown) (unknown) (no (unknown) (unknown) the (units (unkno wn) date) unknown) (unknown) (no (unknown) (unknown) through the (units (un known) date) [place].? unknown) Post-contrast 4.5 mm thick sections then re (unknown) (no (unknown) (unknown) through the (units (un known) date) vertebral body, unknown) and also involving the prominent osteophytes.? The (unknown) (no (unknown) (unknown) through (units (unkno wn) date) unknown) (unknown) (no (unknown) (unknown) to severe (units (unkn own) date) unknown) (unknown) (no (unknown) (unknown) to the (units (unkno wn) date) unknown) (unknown) (no (unknown) (unknown) unremarkable.? (units (unknown) date) unknown) (unknown) (no (unknown) (unknown) vasculature (units (un known) date) unknown) (unknown) (no (unknown) (unknown) ventricles are (units (unknown) date) symmetric in size unknown) and shape.? (unknown) (no (unknown) (unknown) vertex, with (units (u nknown) date) coronal and unknown) sagittal reformats.? For radiation dose reduction, the (unknown) (no (unknown) (unknown) was used:? (units (unk nown) date) automated exposure unknown) control, adjustment of mA and/or kV according to (unknown) (no (unknown) (unknown) white (units (unkno wn) date) unknown) (unknown) (no (unknown) (unknown) with 60-70% (units (un known) date) narrowing seen on unknown) each side. Result panel 58 (unknown) (no (unknown) (unknown) (no value) (units (unk nown) date) unknown) (unknown) (no (unknown) (unknown) (DISH).? (units (unkno wn) date) unknown) (unknown) (no (unknown) (unknown) (MIP) (units (unkno wn) date) unknown) (unknown) (no (unknown) (unknown) [id number] (units (unkn own) date) unknown) (unknown) (no (unknown) (unknown) 1 tab PO Q4HP (units ( unknown) date) PRNQty: 30 0RF unknown) (unknown) (no (unknown) (unknown) 1. Horizontally (units (unknown) date) oriented C5 unknown) fracture which likely extends into the bilateral (unknown) (no (unknown) (unknown) 1. Small right (units (unknown) date) pleural effusion.? unknown) Nonspecific right basilar opacities are (unknown) (no (unknown) (unknown) 01/09/22 01/09/22 (units (unknown) date) 01/09/22 unknown) Range/Units (unknown) (no (unknown) (unknown) 01/09/22 13:57 (units (unknown) date) unknown) (unknown) (no (unknown) (unknown) 01/09/22 14:06 (units (unknown) date) unknown) (unknown) (no (unknown) (unknown) 01/09/22 14:15 (units (unknown) date) unknown) (unknown) (no (unknown) (unknown) 01/09/22 14:17 (units (unknown) date) unknown) (unknown) (no (unknown) (unknown) 01/09/22 14:30 (units (unknown) date) unknown) (unknown) (no (unknown) (unknown) 01/09/22 15:47 (units (unknown) date) unknown) (unknown) (no (unknown) (unknown) 01/09/22 17:26 (units (unknown) date) unknown) (unknown) (no (unknown) (unknown) 01/09/22 17:33 (units (unknown) date) unknown) (unknown) (no (unknown) (unknown) 01/09/22 (units (unkno wn) date) Range/Units unknown) (unknown) (no (unknown) (unknown) 01/09/22 (units (unkno wn) date) unknown) (unknown) (no (unknown) (unknown) [address] [place] [address] (units (unknown) date) unknown) (unknown) (no (unknown) (unknown) 13:57 13:57 13:57 (units (unknown) date) unknown) (unknown) (no (unknown) (unknown) 13:59 01/09/22 (units (unknown) date) unknown) (unknown) (no (unknown) (unknown) 14:00 (units (unkno wn) date) unknown) (unknown) (no (unknown) (unknown) 14:01 01/09/22 (units (unknown) date) unknown) (unknown) (no (unknown) (unknown) 14:30 (units (unkno wn) date) unknown) (unknown) (no (unknown) (unknown) 14:31 01/09/22 (units (unknown) date) unknown) (unknown) (no (unknown) (unknown) 15:00 (units (unkno wn) date) unknown) (unknown) (no (unknown) (unknown) 15:30 01/09/22 (units (unknown) date) unknown) (unknown) (no (unknown) (unknown) 16:32 01/09/22 (units (unknown) date) unknown) (unknown) (no (unknown) (unknown) 16:34 01/09/22 (units (unknown) date) unknown) (unknown) (no (unknown) (unknown) 16:34 (units (unkno wn) date) unknown) (unknown) (no (unknown) (unknown) 16:59 01/09/22 (units (unknown) date) unknown) (unknown) (no (unknown) (unknown) 16:59 (units (unkno wn) date) unknown) (unknown) (no (unknown) (unknown) 17:00 01/09/22 (units (unknown) date) unknown) (unknown) (no (unknown) (unknown) 17:01 01/09/22 (units (unknown) date) unknown) (unknown) (no (unknown) (unknown) 17:01 (units (unkno wn) date) unknown) (unknown) (no (unknown) (unknown) 1923 but very (units ( unknown) date) quickly corrected unknown) this when I told her it was 2021. Patient is (unknown) (no (unknown) (unknown) 2 mg PO BID Qty: 0 (units (unknown) date) unknown) (unknown) (no (unknown) (unknown) 2. Cardiac (units (unk nown) date) silhouette is unknown) mildly enlarged and pulmonary vasculature appears (unknown) (no (unknown) (unknown) 2. Severe (units (unkn own) date) degenerative unknown) change, posterior disc osteophyte complexes, and severe (unknown) (no (unknown) (unknown) 2021. ? (units (unkno wn) date) unknown) (unknown) (no (unknown) (unknown) 3. Extensive edema (units (unknown) date) throughout the unknown) surrounding paraspinous musculature.? (unknown) (no (unknown) (unknown) 3. Nodular (units (unk nown) date) opacities project unknown) over the left mid lung, nonspecific.? These could (unknown) (no (unknown) (unknown) 07/25/2021.? (units (un known) date) unknown) (unknown) (no (unknown) (unknown) 75 mg PO QDAY Qty: (units (unknown) date) 0 unknown) (unknown) (no (unknown) (unknown) 80-90% narrowing (units (unknown) date) can be seen unknown) involving both proximal internal carotid arteries. (unknown) (no (unknown) (unknown) ? (units (unkno wn) date) unknown) (unknown) (no (unknown) (unknown) APTT (26-36) (units (u nknown) date) SECONDS unknown) (unknown) (no (unknown) (unknown) APTT 29 (26-36) (units (unknown) date) SECONDS unknown) (unknown) (no (unknown) (unknown) Accession Number: (units (unknown) date) [id number] ?? unknown) (unknown) (no (unknown) (unknown) Accession Number: (units (unknown) date) [id number] ?? unknown) (unknown) (no (unknown) (unknown) Accession Number: (units (unknown) date) [id number] ?? unknown) (unknown) (no (unknown) (unknown) Accession Number: (units (unknown) date) [id number] ?? unknown) (unknown) (no (unknown) (unknown) Acct:[id number] (units (unknown) date) unknown) (unknown) (no (unknown) (unknown) Age/Sex: 81 / F (units (unknown) date) unknown) (unknown) (no (unknown) (unknown) Allergies (units (unkn own) date) unknown) (unknown) (no (unknown) (unknown) Allergy/AdvReac (units (unknown) date) Type Severity unknown) Reaction Status Date / Time (unknown) (no (unknown) (unknown) Along the inferior (units (unknown) date) aspect of the C5 unknown) level, there is a mildly displaced fracture (unknown) (no (unknown) (unknown) [place] (units ( unknown) date) [id number] unknown) (unknown) (no (unknown) (unknown) Anatomic variant (units (unknown) date) noted of the left unknown) V4 segment largely terminating the in the (unknown) (no (unknown) (unknown) Anterior (units (unkno wn) date) circulation:? unknown) Intracranial internal carotid arteries demonstrate (unknown) (no (unknown) (unknown) Antibody Screen (units (unknown) date) Negative unknown) (unknown) (no (unknown) (unknown) Antibody Screen (units (unknown) date) unknown) (unknown) (no (unknown) (unknown) Any quantitative (units (unknown) date) measurements of unknown) stenosis were performed using NASCET criteria.? (unknown) (no (unknown) (unknown) Appearance: (units (un known) date) grossly normal unknown) (unknown) (no (unknown) (unknown) Approved by: (units (u nknown) date) Jd Baker M.D. unknown) on 01/09/2022 at 15:23 (unknown) (no (unknown) (unknown) Approved by: Boris (units (unknown) date) Sharon Cardona M.D. on unknown) 01/09/2022 at 14:25?? (unknown) (no (unknown) (unknown) Approved by: Boris (units (unknown) date) Sharon Cardona M.D. on unknown) 01/09/2022 at 14:41? (unknown) (no (unknown) (unknown) Approved by: Edna (units (unknown) date) Carole Alan on unknown) 01/09/2022 at 16:49? (unknown) (no (unknown) (unknown) Atrial (units (unkno wn) date) fibrillation unknown) (unknown) (no (unknown) (unknown) Attestation: I (units (unknown) date) personally reviewed unknown) and interpreted this ECG as follows: (unknown) (no (unknown) (unknown) Auscultation: (units ( unknown) date) clear to unknown) auscultation bilaterally (unknown) (no (unknown) (unknown) BRAIN:? (units (unkno wn) date) unknown) (unknown) (no (unknown) (unknown) BUN (7-17) mg/dL (units (unknown) date) unknown) (unknown) (no (unknown) (unknown) BUN 28 H (7-17) (units (unknown) date) mg/dL unknown) (unknown) (no (unknown) (unknown) BUN/Creatinine (units (unknown) date) Ratio (6-22) unknown) (unknown) (no (unknown) (unknown) BUN/Creatinine (units (unknown) date) Ratio 31.5 H (6-22) unknown) (unknown) (no (unknown) (unknown) Back/Spine/Pelvis (units (unknown) date) unknown) (unknown) (no (unknown) (unknown) Basic Metabolic (units (unknown) date) Panel Stat unknown) (unknown) (no (unknown) (unknown) Baso # (Auto) (units ( unknown) date) (0-100) /uL unknown) (unknown) (no (unknown) (unknown) Baso # (Auto) 0 (units (unknown) date) (0-100) /uL unknown) (unknown) (no (unknown) (unknown) Baso % (Auto) (units ( unknown) date) (0-2) % unknown) (unknown) (no (unknown) (unknown) Baso % (Auto) 0.5 (units (unknown) date) (0-2) % unknown) (unknown) (no (unknown) (unknown) Blood Pressure (units (unknown) date) 136/66 10 unknown) 13:59 (unknown) (no (unknown) (unknown) Blood Pressure (units (unknown) date) 136/66 unknown) (unknown) (no (unknown) (unknown) Blood Pressure (units (unknown) date) 162/70 H unknown) (unknown) (no (unknown) (unknown) Blood Pressure (units (unknown) date) 169/76 H unknown) (unknown) (no (unknown) (unknown) Blood Pressure (units (unknown) date) 172/75 H unknown) (unknown) (no (unknown) (unknown) Blood Pressure (units (unknown) date) 177/74 H unknown) (unknown) (no (unknown) (unknown) Blood Pressure (units (unknown) date) 190/84 H unknown) (unknown) (no (unknown) (unknown) Blood Type A (units (u nknown) date) Positive unknown) (unknown) (no (unknown) (unknown) Blood Type (units (unk nown) date) unknown) (unknown) (no (unknown) (unknown) Bones and chest (units (unknown) date) wall:? No unknown) suspicious bony lesions.? Overlying soft tissues (unknown) (no (unknown) (unknown) Bones:? No (units (unk nown) date) suspicious bony unknown) lesions.? Visualized cervical spine appears normally (unknown) (no (unknown) (unknown) Brain:? No (units (unk nown) date) intracranial bleeds unknown) or masses.? There is cerebral volume loss for (unknown) (no (unknown) (unknown) Brain:? No midline (units (unknown) date) shift.? No unknown) intracranial bleeds or masses.? Cortes-white matter (unknown) (no (unknown) (unknown) Breast cancer (units ( unknown) date) unknown) (unknown) (no (unknown) (unknown) C7, as on series (units (unknown) date) 16 image 33.? There unknown) is moderate to severe central canal (unknown) (no (unknown) (unknown) COMPARISON:? (units (u nknown) date) [facility], unknown) CT, CT ANGIO HEAD AND NECK, 01/09/2022, 15:03. (unknown) (no (unknown) (unknown) COMPARISON:? (units (u nknown) date) [facility], unknown) CT, CT ANGIO HEAD AND NECK, 01/09/2022, 15:03.? (unknown) (no (unknown) (unknown) COMPARISON:? (units (u nknown) date) [facility], unknown) CT, CT HEAD/BRAIN WO CON, 01/09/2022, 15:03.? (unknown) (no (unknown) (unknown) COMPARISON:? None. (units (unknown) date) unknown) (unknown) (no (unknown) (unknown) COVID19 -Nasal (units (unknown) date) RAPID/Pre-Proc Stat unknown) (unknown) (no (unknown) (unknown) CSF spaces:? Basal (units (unknown) date) cisterns are unknown) patent.? No extra-axial fluid collections.? The (unknown) (no (unknown) (unknown) CSF spaces:? (units (u nknown) date) Ventricles are unknown) normal in size and shape.? Basal cisterns are (unknown) (no (unknown) (unknown) CT Scan Report (units (unknown) date) unknown) (unknown) (no (unknown) (unknown) CT abdomen pelvis (units (unknown) date) w con Stat unknown) (unknown) (no (unknown) (unknown) CT angio head and (units (unknown) date) neck Stat unknown) (unknown) (no (unknown) (unknown) CT head/brain wo (units (unknown) date) con Stat unknown) (unknown) (no (unknown) (unknown) CT scan - head: (units (unknown) date) unknown) (unknown) (no (unknown) (unknown) CTA - brain/neck: (units (unknown) date) unknown) (unknown) (no (unknown) (unknown) Calcium (8.4-10.2) (units (unknown) date) mg/dL unknown) (unknown) (no (unknown) (unknown) Calcium 8.8 (units (un known) date) (8.4-10.2) mg/dL unknown) (unknown) (no (unknown) (unknown) Carbon Dioxide (units (unknown) date) (22-32) mmol/L unknown) (unknown) (no (unknown) (unknown) Carbon Dioxide 34 (units (unknown) date) H (22-32) mmol/L unknown) (unknown) (no (unknown) (unknown) Cardio (units (unkno wn) date) unknown) (unknown) (no (unknown) (unknown) Carotid system:? (units (unknown) date) The great vessels unknown) demonstrate a conventional anatomy as they (unknown) (no (unknown) (unknown) Cataracts, (units (unk nown) date) bilateral unknown) (unknown) (no (unknown) (unknown) Cervical Spine: (units (unknown) date) collar present and unknown) cervical spinal tenderness (unknown) (no (unknown) (unknown) Chest x-ray: (units (u nknown) date) unknown) (unknown) (no (unknown) (unknown) Chest (units (unkno wn) date) unknown) (unknown) (no (unknown) (unknown) Chest: No crepitus (units (unknown) date) and No tenderness unknown) (unknown) (no (unknown) (unknown) Chief complaint: (units (unknown) date) Weakness unknown) (unknown) (no (unknown) (unknown) Chloride (98-107) (units (unknown) date) mmol/L unknown) (unknown) (no (unknown) (unknown) Chloride 96 L (units ( unknown) date) (98-107) mmol/L unknown) (unknown) (no (unknown) (unknown) Complete Blood (units (unknown) date) Count AUTO DIFF unknown) Stat (unknown) (no (unknown) (unknown) Const (units (unkno wn) date) unknown) (unknown) (no (unknown) (unknown) Coronary artery (units (unknown) date) disease unknown) (unknown) (no (unknown) (unknown) Correlation (units (un known) date) unknown) (unknown) (no (unknown) (unknown) Course (units (unkno wn) date) unknown) (unknown) (no (unknown) (unknown) Creatinine (units (unk nown) date) (0.52-1.04) mg/dL unknown) (unknown) (no (unknown) (unknown) Creatinine 0.89 (units (unknown) date) (0.52-1.04) mg/dL unknown) (unknown) (no (unknown) (unknown) : 1940 (units (unknown) date) Acct:[id number] unknown) (unknown) (no (unknown) (unknown) : 1940 (units (unknown) date) unknown) (unknown) (no (unknown) (unknown) Date of Service: (units (unknown) date) 01/09/22 unknown) (unknown) (no (unknown) (unknown) Dense (units (unkno wn) date) calcification can unknown) be seen involving the intracranial internal carotid (unknown) (no (unknown) (unknown) Departure (units (unkn own) date) unknown) (unknown) (no (unknown) (unknown) Diabetes (units (unkno wn) date) unknown) (unknown) (no (unknown) (unknown) Dictated by: (units (u nknown) date) Jd Baker M.D. unknown) on 01/09/2022 at 15:19 ? ? (unknown) (no (unknown) (unknown) Dictated by: Boris (units (unknown) date) Sharon Cardona M.D. on unknown) 01/09/2022 at 14:24 ? ? (unknown) (no (unknown) (unknown) Dictated by: Boris (units (unknown) date) Sharon Cardona M.D. on unknown) 01/09/2022 at 14:26 ? ? (unknown) (no (unknown) (unknown) Dictated by: Edna (units (unknown) date) Carole Alan on unknown) 01/09/2022 at 16:38 ? ? (unknown) (no (unknown) (unknown) Discharge Plan (units (unknown) date) unknown) (unknown) (no (unknown) (unknown) Documented By: KF (units (unknown) date) unknown) (unknown) (no (unknown) (unknown) ECG Data (units (unkno wn) date) unknown) (unknown) (no (unknown) (unknown) ED Orders (units (unkn own) date) unknown) (unknown) (no (unknown) (unknown) EKG-12 Lead (units (un known) date) Routine unknown) (unknown) (no (unknown) (unknown) EOM: EOM intact (units (unknown) date) bilaterally unknown) (unknown) (no (unknown) (unknown) ER Physician: (units ( unknown) date) Rick Kelley D.O. unknown) (unknown) (no (unknown) (unknown) Effort + (units (unkno wn) date) Inspection: normal unknown) respiratory effort (unknown) (no (unknown) (unknown) Emergency Report (units (unknown) date) unknown) (unknown) (no (unknown) (unknown) Emergent (units (unkno wn) date) unknown) (unknown) (no (unknown) (unknown) Eos # (Auto) (units (u nknown) date) (0-450) /uL unknown) (unknown) (no (unknown) (unknown) Eos # (Auto) 100 (units (unknown) date) (0-450) /uL unknown) (unknown) (no (unknown) (unknown) Eos % (Auto) (2-4) (units (unknown) date) % unknown) (unknown) (no (unknown) (unknown) Eos % (Auto) 0.8 L (units (unknown) date) (2-4) % unknown) (unknown) (no (unknown) (unknown) Estimated GFR > 60 (units (unknown) date) (>60) mL/min unknown) (unknown) (no (unknown) (unknown) Estimated GFR (units ( unknown) date) (>60) mL/min unknown) (unknown) (no (unknown) (unknown) Exam (units (unkno wn) date) unknown) (unknown) (no (unknown) (unknown) Extrem (units (unkno wn) date) unknown) (unknown) (no (unknown) (unknown) Eyes (units (unkno wn) date) unknown) (unknown) (no (unknown) (unknown) FINDINGS:? (units (unk nown) date) unknown) (unknown) (no (unknown) (unknown) Face and sinus: (units (unknown) date) normal facial exam unknown) (unknown) (no (unknown) (unknown) GCS (units (unkno wn) date) unknown) (unknown) (no (unknown) (unknown) GI (units (unkno wn) date) unknown) (unknown) (no (unknown) (unknown) Gastroesophageal (units (unknown) date) reflux disease unknown) (unknown) (no (unknown) (unknown) General (units (unkno wn) date) unknown) (unknown) (no (unknown) (unknown) General: (units (o wn) date) comfortable, No in unknown) distress and No anxious (unknown) (no (unknown) (unknown) General: patient (units (unknown) date) alert, patient unknown) awake and does not move all extremities (unknown) (no (unknown) (unknown) Adebayo coma scale (units (unknown) date) eye opening: unknown) Spontaneous (unknown) (no (unknown) (unknown) Normal coma scale (units (unknown) date) motor response: unknown) Obey commands (unknown) (no (unknown) (unknown) Normal coma scale (units (unknown) date) total score: 14 unknown) (unknown) (no (unknown) (unknown) Normal coma scale (units (unknown) date) verbal response: unknown) Confused (unknown) (no (unknown) (unknown) Glucose (80-110) (units (unknown) date) mg/dL unknown) (unknown) (no (unknown) (unknown) Glucose 149 H (units ( unknown) date) (80-110) mg/dL unknown) (unknown) (no (unknown) (unknown) HEAD CT (units (unkno wn) date) ANGIOGRAPHY:? unknown) (unknown) (no (unknown) (unknown) HENMT (units (unkno wn) date) unknown) (unknown) (no (unknown) (unknown) HPI - General (units ( unknown) date) Adult unknown) (unknown) (no (unknown) (unknown) HPI narrative: (units (unknown) date) unknown) (unknown) (no (unknown) (unknown) Hct (36-46) % (units ( unknown) date) unknown) (unknown) (no (unknown) (unknown) Hct 28.4 L (36-46) (units (unknown) date) % unknown) (unknown) (no (unknown) (unknown) Head: normal to (units (unknown) date) inspection and unknown) normocephalic (unknown) (no (unknown) (unknown) Hgb (12.0-16.0) (units (unknown) date) g/dL unknown) (unknown) (no (unknown) (unknown) Hgb 9.3 L (units (unkn own) date) (12.0-16.0) g/dL unknown) (unknown) (no (unknown) (unknown) High cholesterol (units (unknown) date) unknown) (unknown) (no (unknown) (unknown) History of Present (units (unknown) date) Illness unknown) (unknown) (no (unknown) (unknown) History of hip (units (unknown) date) replacement unknown) (unknown) (no (unknown) (unknown) History of (units (unk nown) date) hysterectomy unknown) (unknown) (no (unknown) (unknown) Home Medications (units (unknown) date) unknown) (unknown) (no (unknown) (unknown) Hospital, MR, (units ( unknown) date) C-SPINE WITHOUT unknown) CONTRAST, 10/10/2015, 7:42. (unknown) (no (unknown) (unknown) Hypertension (units (u nknown) date) unknown) (unknown) (no (unknown) (unknown) IMPRESSION:? No (units (unknown) date) acute intracranial unknown) hemorrhage is seen.? (unknown) (no (unknown) (unknown) IMPRESSION:? There (units (unknown) date) is a mildly unknown) displaced cervical spine fracture involving the (unknown) (no (unknown) (unknown) IMPRESSION:? (units (u nknown) date) unknown) (unknown) (no (unknown) (unknown) INDICATIONS:? C5Fx (units (unknown) date) with UE weakness unknown) (unknown) (no (unknown) (unknown) INDICATIONS:? fall (units (unknown) date) on thinners with unknown) neck hematoma (unknown) (no (unknown) (unknown) INDICATIONS:? fall (units (unknown) date) on thinners unknown) (unknown) (no (unknown) (unknown) INR (0.9-1.3) (units ( unknown) date) unknown) (unknown) (no (unknown) (unknown) INR 1.9 H (units (unkn own) date) (0.9-1.3) unknown) (unknown) (no (unknown) (unknown) If it would be (units (unknown) date) helpful for unknown) clinical management decision making, please consider (unknown) (no (unknown) (unknown) Image quality:? (units (unknown) date) Adequate for unknown) evaluation. (unknown) (no (unknown) (unknown) Image quality:? (units (unknown) date) Excellent.? unknown) (unknown) (no (unknown) (unknown) Imaging Data (units (u nknown) date) unknown) (unknown) (no (unknown) (unknown) Initial Vital (units ( unknown) date) Signs unknown) (unknown) (no (unknown) (unknown) Initial Vital (units ( unknown) date) Signs: unknown) (unknown) (no (unknown) (unknown) Inspection: normal (units (unknown) date) to inspection and unknown) non-distended (unknown) (no (unknown) (unknown) Interpretation: (units (unknown) date) unknown) (unknown) (no (unknown) (unknown) [facility] (units (unknown) date) [address] unknown) [place] [address] (unknown) (no (unknown) (unknown) [facility] (units (unknown) date) unknown) (unknown) (no (unknown) (unknown) [place] (units (unkno wn) date) unknown) (unknown) (no (unknown) (unknown) Lab Data (units (unkno wn) date) unknown) (unknown) (no (unknown) (unknown) Lab Results (units (un known) date) unknown) (unknown) (no (unknown) (unknown) Lab results (units (un known) date) reviewed: Yes I unknown) reviewed the patient's lab results. (unknown) (no (unknown) (unknown) Labs: (units (unkno wn) date) unknown) (unknown) (no (unknown) (unknown) Large area of (units ( unknown) date) ecchymosis on the unknown) right side of her neck. Also has a large area (unknown) (no (unknown) (unknown) Large area of (units ( unknown) date) ecchymosis specific unknown) on the right side of her anterior neck. There (unknown) (no (unknown) (unknown) Last Admin: (units (un known) date) 01/09/22 15:27 unknown) Dose: 125 mls/hr (unknown) (no (unknown) (unknown) Loc: ED (units (unkno wn) date) unknown) (unknown) (no (unknown) (unknown) Lungs and pleura:? (units (unknown) date) Small right pleural unknown) effusion.? Mild nonspecific right basilar (unknown) (no (unknown) (unknown) Lymph # (Auto) (units (unknown) date) (5885-1280) /uL unknown) (unknown) (no (unknown) (unknown) Lymph # (Auto) 800 (units (unknown) date) L (1516-3191) /uL unknown) (unknown) (no (unknown) (unknown) Lymph % (Auto) (units (unknown) date) (25-40) % unknown) (unknown) (no (unknown) (unknown) Lymph % (Auto) (units (unknown) date) 10.5 L (25-40) % unknown) (unknown) (no (unknown) (unknown) MCH (26-34) PG (units (unknown) date) unknown) (unknown) (no (unknown) (unknown) MCH 27.3 (26-34) (units (unknown) date) PG unknown) (unknown) (no (unknown) (unknown) MCHC (30-36) % (units (unknown) date) unknown) (unknown) (no (unknown) (unknown) MCHC 32.6 (30-36) (units (unknown) date) % unknown) (unknown) (no (unknown) (unknown) MCV (80-100) fL (units (unknown) date) unknown) (unknown) (no (unknown) (unknown) MCV 83.8 (80-100) (units (unknown) date) fL unknown) (unknown) (no (unknown) (unknown) MR cervical spine (units (unknown) date) wo con Stat unknown) (unknown) (no (unknown) (unknown) MR#: [id number] (units (unknown) date) unknown) (unknown) (no (unknown) (unknown) MRI cervical: (units ( unknown) date) unknown) (unknown) (no (unknown) (unknown) Magnetic Resonance (units (unknown) date) Report unknown) (unknown) (no (unknown) (unknown) Mediastinum:? (units ( unknown) date) Cardiac silhouette unknown) is mildly enlarged. (unknown) (no (unknown) (unknown) Medical Decision (units (unknown) date) Making unknown) (unknown) (no (unknown) (unknown) Medical History (units (unknown) date) (Reviewed 01/09/22 unknown) @ 17:43 by Rick Kelley DO) (unknown) (no (unknown) (unknown) Medical Records (units (unknown) date) unknown) (unknown) (no (unknown) (unknown) Medical records (units (unknown) date) reviewed: Yes I unknown) reviewed the patient's medical records. (unknown) (no (unknown) (unknown) Medication (units (unk nown) date) Instructions unknown) Recorded Confirmed (unknown) (no (unknown) (unknown) Medication (units (unk nown) date) Instructions unknown) Recorded (unknown) (no (unknown) (unknown) Mode of arrival: (units (unknown) date) EMS unknown) (unknown) (no (unknown) (unknown) Moderate to severe (units (unknown) date) cervical spine unknown) degenerative change can be seen, with (unknown) (no (unknown) (unknown) Harper # (Auto) (units ( unknown) date) (0-900) /uL unknown) (unknown) (no (unknown) (unknown) Harper # (Auto) 700 (units (unknown) date) (0-900) /uL unknown) (unknown) (no (unknown) (unknown) Harper % (Auto) (units ( unknown) date) (3-14) % unknown) (unknown) (no (unknown) (unknown) Harper % (Auto) 9.5 (units (unknown) date) (3-14) % unknown) (unknown) (no (unknown) (unknown) Mouth: oral (units (un known) date) mucosae normal unknown) (unknown) (no (unknown) (unknown) NECK CT (units (unkno wn) date) ANGIOGRAPHY:? unknown) (unknown) (no (unknown) (unknown) Neck (units (unkno wn) date) unknown) (unknown) (no (unknown) (unknown) Neuro (units (unkno wn) date) unknown) (unknown) (no (unknown) (unknown) Neut # (Auto) (units ( unknown) date) (8994-7418) /uL unknown) (unknown) (no (unknown) (unknown) Neut # (Auto) 5700 (units (unknown) date) (3192-6322) /uL unknown) (unknown) (no (unknown) (unknown) Neut % (Auto) (units ( unknown) date) (50-75) % unknown) (unknown) (no (unknown) (unknown) Neut % (Auto) 78.7 (units (unknown) date) H (50-75) % unknown) (unknown) (no (unknown) (unknown) No Action (units (unkn own) date) unknown) (unknown) (no (unknown) (unknown) No acute (units (unkno wn) date) intracranial unknown) process is seen.? (unknown) (no (unknown) (unknown) No definite cord (units (unknown) date) signal abnormality. unknown) (unknown) (no (unknown) (unknown) No gross (units (unkno wn) date) deformities. unknown) (unknown) (no (unknown) (unknown) No problems (units (un known) date) breathing. A unknown) cervical collar was placed secondary to midline (unknown) (no (unknown) (unknown) No (units (unkno wn) date) unknown) (unknown) (no (unknown) (unknown) Nodular (units (unkno wn) date) unknown) (unknown) (no (unknown) (unknown) Noncontrast 4.5 mm (units (unknown) date) thick angled axial unknown) sections acquired from the foramen magnum (unknown) (no (unknown) (unknown) Noncontrast images (units (unknown) date) were performed unknown) earlier in the day and not repeated.? ? After (unknown) (no (unknown) (unknown) Noncontrast (units (un known) date) sagittal T1 spin unknown) echo and T2 fast spin echo, sagittal STIR, (unknown) (no (unknown) (unknown) Normal axis (units (un known) date) unknown) (unknown) (no (unknown) (unknown) Note: Case (units (unk nown) date) discussed by unknown) telephone with Dr. Kelley at 2:32 p.m. [place] time on (unknown) (no (unknown) (unknown) Occasional PVC (units (unknown) date) unknown) (unknown) (no (unknown) (unknown) January 09, (units (un known) date) unknown) (unknown) (no (unknown) (unknown) Orbits appear (units ( unknown) date) normal.? unknown) (unknown) (no (unknown) (unknown) Ordered: (units (unkno wn) date) unknown) (unknown) (no (unknown) (unknown) Ordering Provider: (units (unknown) date) Rick Kelley D.O. 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, with moderate (unknown) (no (unknown) (unknown) Osteoarthritis (units (unknown) date) unknown) (unknown) (no (unknown) (unknown) Other: (units (unkno wn) date) unknown) (unknown) (no (unknown) (unknown) Oxygen Delivery (units (unknown) date) Method 01/09/22 unknown) 13:59 (unknown) (no (unknown) (unknown) Oxygen Delivery (units (unknown) date) Method Room Air unknown) Room Air Room Air (unknown) (no (unknown) (unknown) Oxygen Delivery (units (unknown) date) Method Room Air unknown) Room Air (unknown) (no (unknown) (unknown) Oxygen Delivery (units (unknown) date) Method Room Air unknown) (unknown) (no (unknown) (unknown) Oxygen Delivery (units (unknown) date) Method unknown) (unknown) (no (unknown) (unknown) PROCEDURE:? CT (units (unknown) date) ANGIO HEAD AND NECK unknown) (unknown) (no (unknown) (unknown) PROCEDURE:? CT (units (unknown) date) HEAD/BRAIN WO CON unknown) (unknown) (no (unknown) (unknown) PROCEDURE:? MR (units (unknown) date) CERVICAL SPINE WO unknown) CON (unknown) (no (unknown) (unknown) PROCEDURE:? XR (units (unknown) date) CHEST 1V unknown) (unknown) (no (unknown) (unknown) PT (10.1-12.7) (units (unknown) date) SECONDS unknown) (unknown) (no (unknown) (unknown) PT 22.5 H (units (unkn own) date) (10.1-12.7) SECONDS unknown) (unknown) (no (unknown) (unknown) Palpation: soft (units (unknown) date) and tender (Over unknown) the large contusion of her right lower (unknown) (no (unknown) (unknown) Partial (units (unkno wn) date) Thromboplastin Time unknown) Stat (unknown) (no (unknown) (unknown) Patient History (units (unknown) date) unknown) (unknown) (no (unknown) (unknown) Patient is a (units (u nknown) date) 81-year-old female unknown) who was brought to the emergency department (unknown) (no (unknown) (unknown) Patient knows her (units (unknown) date) name. She knows unknown) that she is in hospital but thinks that she (unknown) (no (unknown) (unknown) Patient: (units (unkno wn) date) Kamryn Danielle unknown) MR#: M (unknown) (no (unknown) (unknown) Patient: (units (unkno wn) date) Ty DanielleKamryn M unknown) (unknown) (no (unknown) (unknown) Plt Count (units (unkn own) date) (150-400) X103/uL unknown) (unknown) (no (unknown) (unknown) Plt Count 194 (units ( unknown) date) (150-400) X103/uL unknown) (unknown) (no (unknown) (unknown) Posterior (units (unkn own) date) circulation:? The unknown) distal left T4 segment largely terminates in the (unknown) (no (unknown) (unknown) Posterior (units (unkno wn) date) circulation:? The unknown) origins of the vertebral arteries both appear widely (unknown) (no (unknown) (unknown) Potassium (units (unkn own) date) (3.4-5.1) mmol/L unknown) (unknown) (no (unknown) (unknown) Potassium 3.2 L (units (unknown) date) (3.4-5.1) mmol/L unknown) (unknown) (no (unknown) (unknown) Prescriptions: (units (unknown) date) unknown) (unknown) (no (unknown) (unknown) Previous Rx's (units ( unknown) date) unknown) (unknown) (no (unknown) (unknown) Procedure: CT (units ( unknown) date) angio head and neck unknown) (unknown) (no (unknown) (unknown) Procedure: CT (units ( unknown) date) head/brain wo con unknown) (unknown) (no (unknown) (unknown) Procedure: MR (units ( unknown) date) cervical spine wo unknown) con (unknown) (no (unknown) (unknown) Procedure: XR (units ( unknown) date) chest 1V unknown) (unknown) (no (unknown) (unknown) Prothrombin Time (units (unknown) date) INR Stat unknown) (unknown) (no (unknown) (unknown) Psych (units (unkno wn) date) unknown) (unknown) (no (unknown) (unknown) Pulse Oximetry 96 (units (unknown) date) 97 unknown) (unknown) (no (unknown) (unknown) Pulse Oximetry 97 (units (unknown) date) 96 unknown) (unknown) (no (unknown) (unknown) Pulse Oximetry 97 (units (unknown) date) 98 unknown) (unknown) (no (unknown) (unknown) Pulse Oximetry 97 (units (unknown) date) unknown) (unknown) (no (unknown) (unknown) Pulse Oximetry 98 (units (unknown) date) 01/09/22 13:59 unknown) (unknown) (no (unknown) (unknown) Pulse Oximetry 98 (units (unknown) date) 97 97 unknown) (unknown) (no (unknown) (unknown) Pulse Oximetry 98 (units (unknown) date) 98 unknown) (unknown) (no (unknown) (unknown) Pulse Rate 87 87 (units (unknown) date) unknown) (unknown) (no (unknown) (unknown) Pulse Rate 87 92 H (units (unknown) date) unknown) (unknown) (no (unknown) (unknown) Pulse Rate 88 (units ( unknown) date) 01/09/22 13:59 unknown) (unknown) (no (unknown) (unknown) Pulse Rate 88 87 (units (unknown) date) 88 unknown) (unknown) (no (unknown) (unknown) Pulse Rate 88 91 H (units (unknown) date) unknown) (unknown) (no (unknown) (unknown) Pulse Rate 89 91 H (units (unknown) date) unknown) (unknown) (no (unknown) (unknown) Pulse Rate 92 H 88 (units (unknown) date) unknown) (unknown) (no (unknown) (unknown) Pupils: PERRL (units ( unknown) date) unknown) (unknown) (no (unknown) (unknown) RBC (4.0-5.2) (units ( unknown) date) X106/uL unknown) (unknown) (no (unknown) (unknown) RBC 3.39 L (units (unk nown) date) (4.0-5.2) X106/uL unknown) (unknown) (no (unknown) (unknown) RDW (11.6-14.8) % (units (unknown) date) unknown) (unknown) (no (unknown) (unknown) RDW 19.6 H (units (unk nown) date) (11.6-14.8) % unknown) (unknown) (no (unknown) (unknown) ROS Unobtainable: (units (unknown) date) All systems unknown) reviewed + are unremarkable except as noted in HPI (unknown) (no (unknown) (unknown) Radiologist's (units ( unknown) date) Impression: unknown) (unknown) (no (unknown) (unknown) Rate: regular rate (units (unknown) date) unknown) (unknown) (no (unknown) (unknown) Referrals: (units (unk nown) date) unknown) (unknown) (no (unknown) (unknown) Related Data (units (u nknown) date) unknown) (unknown) (no (unknown) (unknown) 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 (unknown) (no (unknown) (unknown) Resp (units (unkno wn) date) unknown) (unknown) (no (unknown) (unknown) Respiratory Rate (units (unknown) date) 13 17 unknown) (unknown) (no (unknown) (unknown) Respiratory Rate (units (unknown) date) 18 01/09/22 13:59 unknown) (unknown) (no (unknown) (unknown) Respiratory Rate (units (unknown) date) 18 12 unknown) (unknown) (no (unknown) (unknown) Respiratory Rate (units (unknown) date) 18 17 20 unknown) (unknown) (no (unknown) (unknown) Respiratory Rate (units (unknown) date) 18 18 unknown) (unknown) (no (unknown) (unknown) Respiratory Rate (units (unknown) date) 18 21 unknown) (unknown) (no (unknown) (unknown) Respiratory Rate (units (unknown) date) 18 31 H unknown) (unknown) (no (unknown) (unknown) Result diagrams: (units (unknown) date) unknown) (unknown) (no (unknown) (unknown) Review of Systems (units (unknown) date) unknown) (unknown) (no (unknown) (unknown) Rhythm: abnormal (units (unknown) date) rhythm unknown) (unknown) (no (unknown) (unknown) Right soft tissue (units (unknown) date) neck hematoma with unknown) mild surrounding inflammatory change. (unknown) (no (unknown) (unknown) Jefry Deleon MD (units (unknown) date) [Primary Care unknown) Provider] (unknown) (no (unknown) (unknown) SWELLING (units (unkno wn) date) unknown) (unknown) (no (unknown) (unknown) Scores (units (unkno wn) date) unknown) (unknown) (no (unknown) (unknown) Severe (units (unkno wn) date) degenerative unknown) changes are present throughout the cervical spine including (unknown) (no (unknown) (unknown) Severe (units (unkno wn) date) unknown) (unknown) (no (unknown) (unknown) She is on blood (units (unknown) date) thinner secondary unknown) to atrial fibrillation. She had a CT scan of (unknown) (no (unknown) (unknown) Signed By: (units (unk nown) date) unknown) (unknown) (no (unknown) (unknown) Signed (units (unkno wn) date) unknown) (unknown) (no (unknown) (unknown) Since that time (units (unknown) date) she has had unknown) multiple falls. She states she is not necessarily (unknown) (no (unknown) (unknown) Sinuses:? Sinuses (units (unknown) date) and mastoids are unknown) clear.? (unknown) (no (unknown) (unknown) Sinuses:? (units (unkn own) date) Visualized sinuses unknown) and mastoids are clear.? (unknown) (no (unknown) (unknown) Skin (units (unkno wn) date) unknown) (unknown) (no (unknown) (unknown) Skull and face:? (units (unknown) date) Calvarium and unknown) facial bones appear intact, without suspicious (unknown) (no (unknown) (unknown) Skull and face:? (units (unknown) date) Calvarium and unknown) visualized facial bones appear intact, without (unknown) (no (unknown) (unknown) Social History (units (unknown) date) (Reviewed 01/09/22 unknown) @ 17:43 by Rick Kelley DO) (unknown) (no (unknown) (unknown) Sodium (137-145) (units (unknown) date) mmol/L unknown) (unknown) (no (unknown) (unknown) Sodium 138 (units (unk nown) date) (137-145) mmol/L unknown) (unknown) (no (unknown) (unknown) Sodium Chloride (units (unknown) date) (Normal Saline unknown) 0.9%) 1,000 mls @ 125 mls/hr IV CONT BISHOP (unknown) (no (unknown) (unknown) Soft tissues:? (units (unknown) date) Focal hematoma with unknown) soft tissue swelling can be seen involving (unknown) (no (unknown) (unknown) Source: patient (units (unknown) date) and EMS unknown) (unknown) (no (unknown) (unknown) Speech: speech (units (unknown) date) normal unknown) (unknown) (no (unknown) (unknown) Stated complaint: (units (unknown) date) Multiple falls unknown) (unknown) (no (unknown) (unknown) Surgical History (units (unknown) date) (Reviewed 01/09/22 unknown) @ 17:43 by Rick Kelley DO) (unknown) (no (unknown) (unknown) Surgical changes (units (unknown) date) and devices:? Left unknown) axillary metal clips.? (unknown) (no (unknown) (unknown) TECHNIQUE:? One (units (unknown) date) view of the chest unknown) was acquired.? (unknown) (no (unknown) (unknown) TECHNIQUE:? (units (un known) date) unknown) (unknown) (no (unknown) (unknown) The more superior (units (unknown) date) extracranial unknown) portions of both vertebral arteries also (unknown) (no (unknown) (unknown) There are large (units (unknown) date) posterior disc unknown) osteophyte complexes throughout the cervical (unknown) (no (unknown) (unknown) There is an acute (units (unknown) date) compression unknown) deformity at C5 which likely extends into the (unknown) (no (unknown) (unknown) There is diffuse (units (unknown) date) edema within the unknown) anterior and posterior paraspinous (unknown) (no (unknown) (unknown) These imaging (units ( unknown) date) 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 ranjith Kelley at 4:48 p.m. on January 09, 2022. (unknown) (no (unknown) (unknown) Time Seen by (units (u nknown) date) Provider: 01/09/22 unknown) 14:06 (unknown) (no (unknown) (unknown) Type and Screen (units (unknown) date) Stat unknown) (unknown) (no (unknown) (unknown) Urinary (units (unkno wn) date) incontinence unknown) (unknown) (no (unknown) (unknown) Ventricular rate (units (unknown) date) 86 unknown) (unknown) (no (unknown) (unknown) Vital Signs - 8 hr (units (unknown) date) unknown) (unknown) (no (unknown) (unknown) Vital Signs (units (un known) date) unknown) (unknown) (no (unknown) (unknown) Vital signs: (units (u nknown) date) unknown) (unknown) (no (unknown) (unknown) WBC (4.5-11.0) (units (unknown) date) X103/uL unknown) (unknown) (no (unknown) (unknown) WBC 7.2 (4.5-11.0) (units (unknown) date) X103/uL unknown) (unknown) (no (unknown) (unknown) XR chest 1V Stat (units (unknown) date) unknown) (unknown) (no (unknown) (unknown) XRay Report (units (un known) date) unknown) (unknown) (no (unknown) (unknown) [Embedded Image (units (unknown) date) Not Available] unknown) (unknown) (no (unknown) (unknown) a (units (unkno wn) date) unknown) (unknown) (no (unknown) (unknown) acquired from (units ( unknown) date) unknown) (unknown) (no (unknown) (unknown) administration of (units (unknown) date) intravenous unknown) contrast, 1 mm thick sections acquired from the (unknown) (no (unknown) (unknown) age, with (units (unkn own) date) unknown) (unknown) (no (unknown) (unknown) aligned.? (units (unkn own) date) unknown) (unknown) (no (unknown) (unknown) and below (units (unkn own) date) unknown) (unknown) (no (unknown) (unknown) and courses.? The (units (unknown) date) bifurcation regions unknown) demonstrate generalized atherosclerotic (unknown) (no (unknown) (unknown) and neck (units (unkno wn) date) separately. For unknown) radiation dose reduction, the following was used:? (unknown) (no (unknown) (unknown) and (units (unkno wn) date) unknown) (unknown) (no (unknown) (unknown) and/or volume (units ( unknown) date) rendering reformats unknown) were acquired of the central intracranial (unknown) (no (unknown) (unknown) aneurysms are (units ( unknown) date) seen.? unknown) (unknown) (no (unknown) (unknown) anterior cerebral (units (unknown) date) arteries is normal unknown) and symmetric.? The flow within the middle (unknown) (no (unknown) (unknown) aortic arch (units (un known) date) unknown) (unknown) (no (unknown) (unknown) appear (units (unkno wn) date) unknown) (unknown) (no (unknown) (unknown) appearing (units (unkn own) date) unknown) (unknown) (no (unknown) (unknown) appears intact.? 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 (unknown) (no (unknown) (unknown) arise from (units (unk nown) date) unknown) (unknown) (no (unknown) (unknown) arteries is normal (units (unknown) date) and symmetric.? The unknown) anterior communicating artery is seen.? (unknown) (no (unknown) (unknown) arteries, (units (unkn own) date) unknown) (unknown) (no (unknown) (unknown) arteries. (units (unkn own) date) unknown) (unknown) (no (unknown) (unknown) aspect of the C5 (units (unknown) date) vertebral body. unknown) (unknown) (no (unknown) (unknown) at C5-C6, as on (units (unknown) date) series 14, images unknown) 45-46. (unknown) (no (unknown) (unknown) atherosclerotic (units (unknown) date) calcification, with unknown) up to 70% narrowing.? There is a normal (unknown) (no (unknown) (unknown) atherosclerotic (units (unknown) date) unknown) (unknown) (no (unknown) (unknown) automated (units (unkn own) date) unknown) (unknown) (no (unknown) (unknown) available for my (units (unknown) date) review. She was unknown) subsequently discharged from the hospital. (unknown) (no (unknown) (unknown) axial (units (unkno wn) date) unknown) (unknown) (no (unknown) (unknown) basilar artery.? (units (unknown) date) Flow within the unknown) posterior cerebral arteries is normal and (unknown) (no (unknown) (unknown) bilateral (units (unkn own) date) unknown) (unknown) (no (unknown) (unknown) body (units (unkno wn) date) unknown) (unknown) (no (unknown) (unknown) bridging (units (unkno wn) date) osteophytes.? The unknown) disc spaces are relatively well preserved.? There is (unknown) (no (unknown) (unknown) broad-based (units (un known) date) unknown) (unknown) (no (unknown) (unknown) calcification and (units (unknown) date) irregularity, with unknown) 80-90% narrowing seen both proximal (unknown) (no (unknown) (unknown) calcification, (units (unknown) date) with 60-70% unknown) narrowing seen on each side.? The flow within the (unknown) (no (unknown) (unknown) caliber (units (unkno wn) date) unknown) (unknown) (no (unknown) (unknown) canal stenosis (units (unknown) date) with deformity of unknown) the cord.? The cord measures 4 mm at its (unknown) (no (unknown) (unknown) carotid arteries (units (unknown) date) appear patent.? The unknown) common carotid arteries demonstrate normal (unknown) (no (unknown) (unknown) central canal (units ( unknown) date) narrowing at C5-C6. unknown) (unknown) (no (unknown) (unknown) cerebral (units (unkno wn) date) unknown) (unknown) (no (unknown) (unknown) cervical spinal (units (unknown) date) tenderness by EMS. unknown) She was not on a backboard upon arrival. (unknown) (no (unknown) (unknown) cervical spine.? (units (unknown) date) unknown) (unknown) (no (unknown) (unknown) change. (units (unkno wn) date) unknown) (unknown) (no (unknown) (unknown) chest wall (units (unk nown) date) calcifications or unknown) pulmonary nodules or objects external to the (unknown) (no (unknown) (unknown) clopidogrel 75 mg (units (unknown) date) tablet (Plavix) 75 unknown) mg PO QDAY ##0 08/06/16 (unknown) (no (unknown) (unknown) clopidogrel (units (un known) date) [Plavix] 75 MG unknown) tablet (unknown) (no (unknown) (unknown) codeine [CODEINE] (units (unknown) date) Allergy Severe ORAL unknown) Verified 01/09/22 14:22 (unknown) (no (unknown) (unknown) common (units (unkno wn) date) unknown) (unknown) (no (unknown) (unknown) complaining of (units (unknown) date) neck discomfort. It unknown) was reported she is unsteady on her feet. (unknown) (no (unknown) (unknown) congested. (units (unk nown) date) unknown) (unknown) (no (unknown) (unknown) consistent with a (units (unknown) date) 3 column fracture.? unknown) This is considered an unstable fracture.? (unknown) (no (unknown) (unknown) contraindication). (units (unknown) date) ? unknown) (unknown) (no (unknown) (unknown) days. She (units (unkn own) date) describes unknown) increasing weakness in her upper and lower extremity. She (unknown) (no (unknown) (unknown) decreased sensation (units (unknown) date) at the C5 dermatome unknown) and below that seems to be more profound (unknown) (no (unknown) (unknown) dedicated cervical (units (unknown) date) spine MRI for unknown) further evaluation (assuming that there is no (unknown) (no (unknown) (unknown) degenerative (units (u nknown) date) changes are also unknown) present at C1-2 with subchondral cystic (unknown) (no (unknown) (unknown) degenerative (units (u nknown) date) unknown) (unknown) (no (unknown) (unknown) demonstrate (units (un known) date) unknown) (unknown) (no (unknown) (unknown) dimension. (units (unk nown) date) unknown) (unknown) (no (unknown) (unknown) disc bulges.? (units ( unknown) date) These findings are unknown) most severe at C4-5, C5-6, C6-7, and C7-T1.? (unknown) (no (unknown) (unknown) dislocation. (units (u nknown) date) unknown) (unknown) (no (unknown) (unknown) elements do not (units (unknown) date) appear involved. unknown) (unknown) (no (unknown) (unknown) exposure control, (units (unknown) date) adjustment of mA unknown) and/or kV according to patient size.? (unknown) (no (unknown) (unknown) extra-axial fluid (units (unknown) date) collections.? unknown) (unknown) (no (unknown) (unknown) feel called on all (units (unknown) date) 4 extremities and unknown) this is appropriate. She does have (unknown) (no (unknown) (unknown) following (units (unkn own) date) unknown) (unknown) (no (unknown) (unknown) foraminal oblique (units (unknown) date) unknown) (unknown) (no (unknown) (unknown) frontal (units (unkno wn) date) unknown) (unknown) (no (unknown) (unknown) glimepiride 2 mg (units (unknown) date) tablet (Amaryl) 2 unknown) mg PO BID ##0 08/20/16 (unknown) (no (unknown) (unknown) glimepiride (units (un known) date) [Amaryl] 2 MG unknown) tablet (unknown) (no (unknown) (unknown) height loss.? No (units (unknown) date) definite unknown) retropulsed fracture fragments.? No other fracture or (unknown) (no (unknown) (unknown) her head and also (units (unknown) date) her neck which unknown) reported is unremarkable. These reports were (unknown) (no (unknown) (unknown) hydrocodone 5 (units ( unknown) date) mg-acetaminophen unknown) 325 1 tab PO Q4HP PRN #30 tabs 08/21/16 (unknown) (no (unknown) (unknown) hydrocodone-acetam (units (unknown) date) inophen [[place]] 5 unknown) MG/325 MG tablet (unknown) (no (unknown) (unknown) hyperostosis (units (u nknown) date) unknown) (unknown) (no (unknown) (unknown) in her upper and (units (unknown) date) lower extremities. unknown) She is not have any problems swallowing. (unknown) (no (unknown) (unknown) infarction seen, (units (unknown) date) with focal volume unknown) loss and encephalomalacia.? There is (unknown) (no (unknown) (unknown) inferior (units (unkno wn) date) unknown) (unknown) (no (unknown) (unknown) interface (units (unkn own) date) unknown) (unknown) (no (unknown) (unknown) internal carotid (units (unknown) date) artery unknown) atherosclerosis.? (unknown) (no (unknown) (unknown) internal carotid (units (unknown) date) unknown) (unknown) (no (unknown) (unknown) intervertebral (units (unknown) date) disc space unknown) narrowing, disc desiccation and height loss, and (unknown) (no (unknown) (unknown) intracranial (units (u nknown) date) unknown) (unknown) (no (unknown) (unknown) is also made with (units (unknown) date) the prior outside unknown) cervical spine CT examinations 01/07/2022 (unknown) (no (unknown) (unknown) is in the hospital (units (unknown) date) that she was at a unknown) couple days ago. She thinks that it is (unknown) (no (unknown) (unknown) is no pulsatile (units (unknown) date) lesions. No unknown) crepitus. Is tender to palpation. (unknown) (no (unknown) (unknown) it is not sharp (units (unknown) date) when she is touched unknown) with a sharp object. (unknown) (no (unknown) (unknown) lateral neck (units (un known) date) superiorly.? The unknown) hematoma itself measures 3.2 by 1.8 cm in greatest (unknown) (no (unknown) (unknown) left (units (unkno wn) date) unknown) (unknown) (no (unknown) (unknown) left. (units (unkno wn) date) unknown) (unknown) (no (unknown) (unknown) lesions.? (units (unkn own) date) unknown) (unknown) (no (unknown) (unknown) lives (units (unkno wn) date) independently: Yes unknown) (unknown) (no (unknown) (unknown) lower extremity (units (unknown) date) but very little if unknown) any in her left lower extremity. She can (unknown) (no (unknown) (unknown) marital status: (units (unknown) date) unknown) (unknown) (no (unknown) (unknown) matter chronic (units (unknown) date) small vessel unknown) ischemic changes.? There is a remote right superior (unknown) (no (unknown) (unknown) may represent (units ( unknown) date) atelectasis, unknown) aspiration or pneumonia not excludable. (unknown) (no (unknown) (unknown) mg tablet ([place]) (units (unknown) date) unknown) (unknown) (no (unknown) (unknown) mildly (units (unkno wn) date) unknown) (unknown) (no (unknown) (unknown) multilevel (units (unk nown) date) unknown) (unknown) (no (unknown) (unknown) musculature. (units (u nknown) date) unknown) (unknown) (no (unknown) (unknown) narrowest point (units (unknown) date) unknown) (unknown) (no (unknown) (unknown) narrowest (units (unkn own) date) unknown) (unknown) (no (unknown) (unknown) narrowing seen (units (unknown) date) unknown) (unknown) (no (unknown) (unknown) neurosurgical (units ( unknown) date) consultation unknown) recommended. (unknown) (no (unknown) (unknown) normal courses and (units (unknown) date) calibers.? The unknown) right vertebral artery is dominant to the (unknown) (no (unknown) (unknown) of ecchymosis in (units (unknown) date) her right upper unknown) quadrant/lower ribs. (unknown) (no (unknown) (unknown) on the right than (units (unknown) date) the left. She unknown) states she can feel something touching her but (unknown) (no (unknown) (unknown) opacities project (units (unknown) date) over the left mid unknown) lung, approximately 2 centimeters each (unknown) (no (unknown) (unknown) opacities.? No (units (unknown) date) pneumothorax.? unknown) Pulmonary vasculature appears prominent. two? (unknown) (no (unknown) (unknown) paired (units (unkno wn) date) unknown) (unknown) (no (unknown) (unknown) paramedics. That (units (unknown) date) was her 4th unknown) emergency department visit in 4 days. She was (unknown) (no (unknown) (unknown) patent.? No (units (un known) date) unknown) (unknown) (no (unknown) (unknown) patent.? (units (unkno wn) date) unknown) (unknown) (no (unknown) (unknown) patient (units (unkno wn) date) unknown) (unknown) (no (unknown) (unknown) patient.? CT of (units (unknown) date) unknown) (unknown) (no (unknown) (unknown) pedicles (units (unkno wn) date) consistent with a 3 unknown) column fracture.? There is only minimal vertebral (unknown) (no (unknown) (unknown) pedicles (units (unkno wn) date) unknown) (unknown) (no (unknown) (unknown) point posterior to (units (unknown) date) the C5-6 disc unknown) interspace.? There is extensive flattening of (unknown) (no (unknown) (unknown) posterior inferior (units (unknown) date) cerebellar artery. unknown) (unknown) (no (unknown) (unknown) posterior inferior (units (unknown) date) cerebellar artery.? unknown) The right V4 segment demonstrates focal (unknown) (no (unknown) (unknown) posterior to the (units (unknown) date) C5-6 disc unknown) interspace.? 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 The canal measures 4 mm at its (unknown) (no (unknown) (unknown) resultant (units (unkno wn) date) ventricular and unknown) sulcal prominence.? There are periventricular and deep (unknown) (no (unknown) (unknown) rib/upper abdomen) (units (unknown) date) unknown) (unknown) (no (unknown) (unknown) sagittal T2 fast (units (unknown) date) spin echo, and unknown) axial gradient echo or T2 fast spin echo through (unknown) (no (unknown) (unknown) seen (units (unkno wn) date) unknown) (unknown) (no (unknown) (unknown) shrimp [SHRIMP] (units (unknown) date) AdvReac unknown) Intermediate VOMITING Verified 01/09/22 14:22 (unknown) (no (unknown) (unknown) size.? (units (unkno wn) date) unknown) (unknown) (no (unknown) (unknown) spine with (units (unk nown) date) unknown) (unknown) (no (unknown) (unknown) suspicious (units (unk nown) date) unknown) (unknown) (no (unknown) (unknown) swelling around (units (unknown) date) her neck. Patient unknown) has had increasing falls over the past couple (unknown) (no (unknown) (unknown) symmetric.? No (units (unknown) date) unknown) (unknown) (no (unknown) (unknown) the aortic arch. (units (unknown) date) Atherosclerotic unknown) calcification is noted.? ? The origins of the (unknown) (no (unknown) (unknown) the chest could be (units (unknown) date) obtained as unknown) clinically indicated.? (unknown) (no (unknown) (unknown) the cord.? (units (unk nown) date) unknown) (unknown) (no (unknown) (unknown) the foramen magnum (units (unknown) date) to the vertex.? unknown) 3-dimensional [id number] rojection (unknown) (no (unknown) (unknown) the right (units (unkn own) date) unknown) (unknown) (no (unknown) (unknown) the (units (unkno wn) date) unknown) (unknown) (no (unknown) (unknown) through the [place] (units (unknown) date) of [place].? unknown) Post-contrast 4.5 mm thick sections then re (unknown) (no (unknown) (unknown) through the (units (un known) date) vertebral body, and unknown) also involving the prominent osteophytes.? The (unknown) (no (unknown) (unknown) through (units (unkno wn) date) unknown) (unknown) (no (unknown) (unknown) to severe (units (unkn own) date) unknown) (unknown) (no (unknown) (unknown) to the (units (unkno wn) date) unknown) (unknown) (no (unknown) (unknown) today for (units (unkn own) date) evaluation of unknown) increasing falls and also increasing redness and (unknown) (no (unknown) (unknown) tripping over (units ( unknown) date) anything she is unknown) just losing her balance and is increasingly weak (unknown) (no (unknown) (unknown) unable to move her (units (unknown) date) upper extremities. unknown) She has slight movement in her right (unknown) (no (unknown) (unknown) unremarkable.? (units (unknown) date) unknown) (unknown) (no (unknown) (unknown) vasculature (units (un known) date) unknown) (unknown) (no (unknown) (unknown) ventricles are (units (unknown) date) symmetric in size unknown) and shape.? (unknown) (no (unknown) (unknown) vertex, with (units (u nknown) date) coronal and unknown) sagittal reformats.? For radiation dose reduction, the (unknown) (no (unknown) (unknown) was seen at an (units (unknown) date) outside facility 2 unknown) days ago after being brought there by (unknown) (no (unknown) (unknown) was used:? (units (unk nown) date) automated exposure unknown) control, adjustment of mA and/or kV according to (unknown) (no (unknown) (unknown) white (units (unkno wn) date) unknown) (unknown) (no (unknown) (unknown) with 60-70% (units (un known) date) narrowing seen on unknown) each side. Result panel 59 (unknown) (no date) (unknown) (unknown) Negative (units (unkn own) unknown) (unknown) (no date) (unknown) (unknown) Negative (units (unkn own) unknown) Result panel 60 (unknown) (no (unknown) (unknown) (no value) (units (unk nown) date) unknown) (unknown) (no (unknown) (unknown) (DISH).? (units (unkno wn) date) unknown) (unknown) (no (unknown) (unknown) (MIP) (units (unkno wn) date) unknown) (unknown) (no (unknown) (unknown) [phone] (units (unkn own) date) unknown) (unknown) (no (unknown) (unknown) 1 tab PO Q4HP (units ( unknown) date) PRNQty: 30 0RF unknown) (unknown) (no (unknown) (unknown) 1. Horizontally (units (unknown) date) oriented C5 unknown) fracture which likely extends into the bilateral (unknown) (no (unknown) (unknown) 1. Small right (units (unknown) date) pleural effusion.? unknown) Nonspecific right basilar opacities are (unknown) (no (unknown) (unknown) 01/09/22 01/09/22 (units (unknown) date) 01/09/22 unknown) Range/Units (unknown) (no (unknown) (unknown) 01/09/22 01/09/22 (units (unknown) date) Range/Units unknown) (unknown) (no (unknown) (unknown) 01/09/22 13:57 (units (unknown) date) unknown) (unknown) (no (unknown) (unknown) 01/09/22 14:06 (units (unknown) date) unknown) (unknown) (no (unknown) (unknown) 01/09/22 14:15 (units (unknown) date) unknown) (unknown) (no (unknown) (unknown) 01/09/22 14:17 (units (unknown) date) unknown) (unknown) (no (unknown) (unknown) 01/09/22 14:30 (units (unknown) date) unknown) (unknown) (no (unknown) (unknown) 01/09/22 15:47 (units (unknown) date) unknown) (unknown) (no (unknown) (unknown) 01/09/22 17:26 (units (unknown) date) unknown) (unknown) (no (unknown) (unknown) 01/09/22 17:33 (units (unknown) date) unknown) (unknown) (no (unknown) (unknown) 01/09/22 (units (unkno wn) date) unknown) (unknown) (no (unknown) (unknown) [address] [place] [address] (units (unknown) date) unknown) (unknown) (no (unknown) (unknown) 13:57 13:57 13:57 (units (unknown) date) unknown) (unknown) (no (unknown) (unknown) 13:59 01/09/22 (units (unknown) date) unknown) (unknown) (no (unknown) (unknown) 14:00 (units (unkno wn) date) unknown) (unknown) (no (unknown) (unknown) 14:01 01/09/22 (units (unknown) date) unknown) (unknown) (no (unknown) (unknown) 14:30 17:26 (units (un known) date) unknown) (unknown) (no (unknown) (unknown) 14:30 (units (unkno wn) date) unknown) (unknown) (no (unknown) (unknown) 14:31 01/09/22 (units (unknown) date) unknown) (unknown) (no (unknown) (unknown) 15:00 (units (unkno wn) date) unknown) (unknown) (no (unknown) (unknown) 15:30 01/09/22 (units (unknown) date) unknown) (unknown) (no (unknown) (unknown) 16:32 01/09/22 (units (unknown) date) unknown) (unknown) (no (unknown) (unknown) 16:34 01/09/22 (units (unknown) date) unknown) (unknown) (no (unknown) (unknown) 16:34 (units (unkno wn) date) unknown) (unknown) (no (unknown) (unknown) 16:59 01/09/22 (units (unknown) date) unknown) (unknown) (no (unknown) (unknown) 16:59 (units (unkno wn) date) unknown) (unknown) (no (unknown) (unknown) 17:00 01/09/22 (units (unknown) date) unknown) (unknown) (no (unknown) (unknown) 17:01 01/09/22 (units (unknown) date) unknown) (unknown) (no (unknown) (unknown) 17:01 (units (unkno wn) date) unknown) (unknown) (no (unknown) (unknown) 17:30 01/09/22 (units (unknown) date) unknown) (unknown) (no (unknown) (unknown) 18:00 01/09/22 (units (unknown) date) unknown) (unknown) (no (unknown) (unknown) 18:31 (units (unkno wn) date) unknown) (unknown) (no (unknown) (unknown) 1924 but very (units ( unknown) date) quickly corrected unknown) this when I told her it was 2021. Patient is (unknown) (no (unknown) (unknown) 2 mg PO BID Qty: 0 (units (unknown) date) unknown) (unknown) (no (unknown) (unknown) 2. Cardiac (units (unk nown) date) silhouette is unknown) mildly enlarged and pulmonary vasculature appears (unknown) (no (unknown) (unknown) 2. Severe (units (unkn own) date) degenerative unknown) change, posterior disc osteophyte complexes, and severe (unknown) (no (unknown) (unknown) 2021. ? (units (unkno wn) date) unknown) (unknown) (no (unknown) (unknown) 3. Extensive edema (units (unknown) date) throughout the unknown) surrounding paraspinous musculature.? (unknown) (no (unknown) (unknown) 3. Nodular (units (unk nown) date) opacities project unknown) over the left mid lung, nonspecific.? These could (unknown) (no (unknown) (unknown) 07/25/2021.? (units (un known) date) unknown) (unknown) (no (unknown) (unknown) 75 mg PO QDAY Qty: (units (unknown) date) 0 unknown) (unknown) (no (unknown) (unknown) 80-90% narrowing (units (unknown) date) can be seen unknown) involving both proximal internal carotid arteries. (unknown) (no (unknown) (unknown) ? (units (unkno wn) date) unknown) (unknown) (no (unknown) (unknown) APTT (26-36) (units (u nknown) date) SECONDS unknown) (unknown) (no (unknown) (unknown) APTT 29 (26-36) (units (unknown) date) SECONDS unknown) (unknown) (no (unknown) (unknown) Accession Number: (units (unknown) date) [id number] ?? unknown) (unknown) (no (unknown) (unknown) Accession Number: (units (unknown) date) [id number] ?? unknown) (unknown) (no (unknown) (unknown) Accession Number: (units (unknown) date) [id number] ?? unknown) (unknown) (no (unknown) (unknown) Accession Number: (units (unknown) date) [id number] ?? unknown) (unknown) (no (unknown) (unknown) Acct:[id number] (units (unknown) date) unknown) (unknown) (no (unknown) (unknown) Age/Sex: 81 / F (units (unknown) date) unknown) (unknown) (no (unknown) (unknown) Allergies (units (unkn own) date) unknown) (unknown) (no (unknown) (unknown) Allergy/AdvReac (units (unknown) date) Type Severity unknown) Reaction Status Date / Time (unknown) (no (unknown) (unknown) Along the inferior (units (unknown) date) aspect of the C5 unknown) level, there is a mildly displaced fracture (unknown) (no (unknown) (unknown) [place], [place] (units ( unknown) date) [id number] unknown) (unknown) (no (unknown) (unknown) Anatomic variant (units (unknown) date) noted of the left unknown) V4 segment largely terminating the in the (unknown) (no (unknown) (unknown) Anterior (units (unkno wn) date) circulation:? unknown) Intracranial internal carotid arteries demonstrate (unknown) (no (unknown) (unknown) Antibody Screen (units (unknown) date) Negative unknown) (unknown) (no (unknown) (unknown) Antibody Screen (units (unknown) date) unknown) (unknown) (no (unknown) (unknown) Any quantitative (units (unknown) date) measurements of unknown) stenosis were performed using NASCET criteria.? (unknown) (no (unknown) (unknown) Appearance: (units (un known) date) grossly normal unknown) (unknown) (no (unknown) (unknown) Approved by: (units (u nknown) date) Jd Baker M.D. unknown) on 01/09/2022 at 15:23 (unknown) (no (unknown) (unknown) Approved by: Boris (units (unknown) date) Sharon Cardona M.D. on unknown) 01/09/2022 at 14:25?? (unknown) (no (unknown) (unknown) Approved by: Boris (units (unknown) date) Sharon Cardona M.D. on unknown) 01/09/2022 at 14:41? (unknown) (no (unknown) (unknown) Approved by: Edna (units (unknown) date) Carole Alan on unknown) 01/09/2022 at 16:49? (unknown) (no (unknown) (unknown) Atrial (units (unkno wn) date) fibrillation unknown) (unknown) (no (unknown) (unknown) Attestation: I (units (unknown) date) personally reviewed unknown) and interpreted this ECG as follows: (unknown) (no (unknown) (unknown) Attestation: (units (u nknown) date) unknown) (unknown) (no (unknown) (unknown) Auscultation: (units ( unknown) date) clear to unknown) auscultation bilaterally (unknown) (no (unknown) (unknown) BRAIN:? (units (unkno wn) date) unknown) (unknown) (no (unknown) (unknown) BUN (7-17) mg/dL (units (unknown) date) unknown) (unknown) (no (unknown) (unknown) BUN 28 H (7-17) (units (unknown) date) mg/dL unknown) (unknown) (no (unknown) (unknown) BUN/Creatinine (units (unknown) date) Ratio (6-22) unknown) (unknown) (no (unknown) (unknown) BUN/Creatinine (units (unknown) date) Ratio 31.5 H (6-22) unknown) (unknown) (no (unknown) (unknown) Back/Spine/Pelvis (units (unknown) date) unknown) (unknown) (no (unknown) (unknown) Basic Metabolic (units (unknown) date) Panel Stat unknown) (unknown) (no (unknown) (unknown) Baso # (Auto) (units ( unknown) date) (0-100) /uL unknown) (unknown) (no (unknown) (unknown) Baso # (Auto) 0 (units (unknown) date) (0-100) /uL unknown) (unknown) (no (unknown) (unknown) Baso % (Auto) (units ( unknown) date) (0-2) % unknown) (unknown) (no (unknown) (unknown) Baso % (Auto) 0.5 (units (unknown) date) (0-2) % unknown) (unknown) (no (unknown) (unknown) Blood Pressure (units (unknown) date) 136/66 01/09/22 unknown) 13:59 (unknown) (no (unknown) (unknown) Blood Pressure (units (unknown) date) 136/66 unknown) (unknown) (no (unknown) (unknown) Blood Pressure (units (unknown) date) 162/70 H unknown) (unknown) (no (unknown) (unknown) Blood Pressure (units (unknown) date) 169/76 H unknown) (unknown) (no (unknown) (unknown) Blood Pressure (units (unknown) date) 172/75 H unknown) (unknown) (no (unknown) (unknown) Blood Pressure (units (unknown) date) 177/74 H unknown) (unknown) (no (unknown) (unknown) Blood Pressure (units (unknown) date) 190/84 H unknown) (unknown) (no (unknown) (unknown) Blood Pressure (units (unknown) date) unknown) (unknown) (no (unknown) (unknown) Blood Type A (units (u nknown) date) Positive unknown) (unknown) (no (unknown) (unknown) Blood Type (units (unk nown) date) unknown) (unknown) (no (unknown) (unknown) Bones and chest (units (unknown) date) wall:? No unknown) suspicious bony lesions.? Overlying soft tissues (unknown) (no (unknown) (unknown) Bones:? No (units (unk nown) date) suspicious bony unknown) lesions.? Visualized cervical spine appears normally (unknown) (no (unknown) (unknown) Brain:? No (units (unk nown) date) intracranial bleeds unknown) or masses.? There is cerebral volume loss for (unknown) (no (unknown) (unknown) Brain:? No midline (units (unknown) date) shift.? No unknown) intracranial bleeds or masses.? Cortes-white matter (unknown) (no (unknown) (unknown) Breast cancer (units ( unknown) date) unknown) (unknown) (no (unknown) (unknown) C5 cervical (units (un known) date) fracture, Hematoma unknown) of neck, Hematoma of right chest wall (unknown) (no (unknown) (unknown) C7, as on series (units (unknown) date) 16 image 33.? There unknown) is moderate to severe central canal (unknown) (no (unknown) (unknown) COMPARISON:? (units (u nknown) date) [facility], unknown) CT, CT ANGIO HEAD AND NECK, 01/09/2022, 15:03. (unknown) (no (unknown) (unknown) COMPARISON:? (units (u nknown) date) [facility], unknown) CT, CT ANGIO HEAD AND NECK, 01/09/2022, 15:03.? (unknown) (no (unknown) (unknown) COMPARISON:? (units (u nknown) date) [facility], unknown) CT, CT HEAD/BRAIN WO CON, 01/09/2022, 15:03.? (unknown) (no (unknown) (unknown) COMPARISON:? None. (units (unknown) date) unknown) (unknown) (no (unknown) (unknown) COVID19 -Nasal (units (unknown) date) RAPID/Pre-Proc Stat unknown) (unknown) (no (unknown) (unknown) CSF spaces:? Basal (units (unknown) date) cisterns are unknown) patent.? No extra-axial fluid collections.? The (unknown) (no (unknown) (unknown) CSF spaces:? (units (u nknown) date) Ventricles are unknown) normal in size and shape.? Basal cisterns are (unknown) (no (unknown) (unknown) CT Scan Report (units (unknown) date) unknown) (unknown) (no (unknown) (unknown) CT angio head and (units (unknown) date) neck Stat unknown) (unknown) (no (unknown) (unknown) CT chest abd pel w (units (unknown) date) con Stat unknown) (unknown) (no (unknown) (unknown) CT head/brain wo (units (unknown) date) con Stat unknown) (unknown) (no (unknown) (unknown) CT scan - head: (units (unknown) date) unknown) (unknown) (no (unknown) (unknown) CTA - brain/neck: (units (unknown) date) unknown) (unknown) (no (unknown) (unknown) Calcium (8.4-10.2) (units (unknown) date) mg/dL unknown) (unknown) (no (unknown) (unknown) Calcium 8.8 (units (un known) date) (8.4-10.2) mg/dL unknown) (unknown) (no (unknown) (unknown) Carbon Dioxide (units (unknown) date) (22-32) mmol/L unknown) (unknown) (no (unknown) (unknown) Carbon Dioxide 34 (units (unknown) date) H (22-32) mmol/L unknown) (unknown) (no (unknown) (unknown) Cardio (units (unkno wn) date) unknown) (unknown) (no (unknown) (unknown) Carotid system:? (units (unknown) date) The great vessels unknown) demonstrate a conventional anatomy as they (unknown) (no (unknown) (unknown) Cataracts, (units (unk nown) date) bilateral unknown) (unknown) (no (unknown) (unknown) Cervical Spine: (units (unknown) date) collar present and unknown) cervical spinal tenderness (unknown) (no (unknown) (unknown) Chest x-ray: (units (u nknown) date) unknown) (unknown) (no (unknown) (unknown) Chest (units (unkno wn) date) unknown) (unknown) (no (unknown) (unknown) Chest: No crepitus (units (unknown) date) and No tenderness unknown) (unknown) (no (unknown) (unknown) Chief complaint: (units (unknown) date) Weakness unknown) (unknown) (no (unknown) (unknown) Chloride (98-107) (units (unknown) date) mmol/L unknown) (unknown) (no (unknown) (unknown) Chloride 96 L (units ( unknown) date) (98-107) mmol/L unknown) (unknown) (no (unknown) (unknown) Clinical (units (unkno wn) date) Impression: unknown) (unknown) (no (unknown) (unknown) Complete Blood (units (unknown) date) Count AUTO DIFF unknown) Stat (unknown) (no (unknown) (unknown) Const (units (unkno wn) date) unknown) (unknown) (no (unknown) (unknown) Coronary artery (units (unknown) date) disease unknown) (unknown) (no (unknown) (unknown) Correlation (units (un known) date) unknown) (unknown) (no (unknown) (unknown) Course (units (unkno wn) date) unknown) (unknown) (no (unknown) (unknown) Creatinine (units (unk nown) date) (0.52-1.04) mg/dL unknown) (unknown) (no (unknown) (unknown) Creatinine 0.89 (units (unknown) date) (0.52-1.04) mg/dL unknown) (unknown) (no (unknown) (unknown) Critical Care Time (units (unknown) date) unknown) (unknown) (no (unknown) (unknown) Critical Care (units ( unknown) date) Time: Yes unknown) (unknown) (no (unknown) (unknown) : 1940 (units (unknown) date) Acct:[id number] unknown) (unknown) (no (unknown) (unknown) : 1940 (units (unknown) date) unknown) (unknown) (no (unknown) (unknown) Date of Service: (units (unknown) date) 01/09/22 unknown) (unknown) (no (unknown) (unknown) Dense (units (unkno wn) date) calcification can unknown) be seen involving the intracranial internal carotid (unknown) (no (unknown) (unknown) Departure (units (unkn own) date) unknown) (unknown) (no (unknown) (unknown) Diabetes (units (unkno wn) date) unknown) (unknown) (no (unknown) (unknown) Dictated by: (units (u nknown) date) Jd Baker M.D. unknown) on 01/09/2022 at 15:19 ? ? (unknown) (no (unknown) (unknown) Dictated by: Boris (units (unknown) date) Sharon Cardona M.D. on unknown) 01/09/2022 at 14:24 ? ? (unknown) (no (unknown) (unknown) Dictated by: Boris (units (unknown) date) Sharon Cardona M.D. on unknown) 01/09/2022 at 14:26 ? ? (unknown) (no (unknown) (unknown) Dictated by: Edna (units (unknown) date) Carole Alan on unknown) 01/09/2022 at 16:38 ? ? (unknown) (no (unknown) (unknown) Discharge Plan (units (unknown) date) unknown) (unknown) (no (unknown) (unknown) Documented By: KF (units (unknown) date) unknown) (unknown) (no (unknown) (unknown) ECG Data (units (unkno wn) date) unknown) (unknown) (no (unknown) (unknown) ED Orders (units (unkn own) date) unknown) (unknown) (no (unknown) (unknown) EKG-12 Lead (units (un known) date) Routine unknown) (unknown) (no (unknown) (unknown) EOM: EOM intact (units (unknown) date) bilaterally unknown) (unknown) (no (unknown) (unknown) ER Physician: (units ( unknown) date) Rick Kelley D.O. unknown) (unknown) (no (unknown) (unknown) Effort + (units (unkno wn) date) Inspection: normal unknown) respiratory effort (unknown) (no (unknown) (unknown) Emergency Report (units (unknown) date) unknown) (unknown) (no (unknown) (unknown) Emergent (units (unkno wn) date) unknown) (unknown) (no (unknown) (unknown) Eos # (Auto) (units (u nknown) date) (0-450) /uL unknown) (unknown) (no (unknown) (unknown) Eos # (Auto) 100 (units (unknown) date) (0-450) /uL unknown) (unknown) (no (unknown) (unknown) Eos % (Auto) (2-4) (units (unknown) date) % unknown) (unknown) (no (unknown) (unknown) Eos % (Auto) 0.8 L (units (unknown) date) (2-4) % unknown) (unknown) (no (unknown) (unknown) Estimated GFR > 60 (units (unknown) date) (>60) mL/min unknown) (unknown) (no (unknown) (unknown) Estimated GFR (units ( unknown) date) (>60) mL/min unknown) (unknown) (no (unknown) (unknown) Exam (units (unkno wn) date) unknown) (unknown) (no (unknown) (unknown) Extrem (units (unkno wn) date) unknown) (unknown) (no (unknown) (unknown) Eyes (units (unkno wn) date) unknown) (unknown) (no (unknown) (unknown) FINDINGS:? (units (unk nown) date) unknown) (unknown) (no (unknown) (unknown) Face and sinus: (units (unknown) date) normal facial exam unknown) (unknown) (no (unknown) (unknown) GCS (units (unkno wn) date) unknown) (unknown) (no (unknown) (unknown) GI (units (o wn) date) unknown) (unknown) (no (unknown) (unknown) Gastroesophageal (units (unknown) date) reflux disease unknown) (unknown) (no (unknown) (unknown) General (units (o wn) date) unknown) (unknown) (no (unknown) (unknown) General: (units (o wn) date) comfortable, No in unknown) distress and No anxious (unknown) (no (unknown) (unknown) General: patient (units (unknown) date) alert, patient unknown) awake and does not move all extremities (unknown) (no (unknown) (unknown) Normal coma scale (units (unknown) date) eye opening: unknown) Spontaneous (unknown) (no (unknown) (unknown) Adebayo coma scale (units (unknown) date) motor response: unknown) Obey commands (unknown) (no (unknown) (unknown) Adebayo coma scale (units (unknown) date) total score: 14 unknown) (unknown) (no (unknown) (unknown) Normal coma scale (units (unknown) date) verbal response: unknown) Confused (unknown) (no (unknown) (unknown) Glucose (80-110) (units (unknown) date) mg/dL unknown) (unknown) (no (unknown) (unknown) Glucose 149 H (units ( unknown) date) (80-110) mg/dL unknown) (unknown) (no (unknown) (unknown) HEAD CT (units (o wn) date) ANGIOGRAPHY:? unknown) (unknown) (no (unknown) (unknown) HENMT (units (unkno wn) date) unknown) (unknown) (no (unknown) (unknown) HPI - General (units ( unknown) date) Adult unknown) (unknown) (no (unknown) (unknown) HPI narrative: (units (unknown) date) unknown) (unknown) (no (unknown) (unknown) Hct (36-46) % (units ( unknown) date) unknown) (unknown) (no (unknown) (unknown) Hct 28.4 L (36-46) (units (unknown) date) % unknown) (unknown) (no (unknown) (unknown) Head: normal to (units (unknown) date) inspection and unknown) normocephalic (unknown) (no (unknown) (unknown) Her last dose was (units (unknown) date) at noon today. unknown) There is no signs of active bleeding in the (unknown) (no (unknown) (unknown) Hgb (12.0-16.0) (units (unknown) date) g/dL unknown) (unknown) (no (unknown) (unknown) Hgb 9.3 L (units (unkn own) date) (12.0-16.0) g/dL unknown) (unknown) (no (unknown) (unknown) High cholesterol (units (unknown) date) unknown) (unknown) (no (unknown) (unknown) History of Present (units (unknown) date) Illness unknown) (unknown) (no (unknown) (unknown) History of hip (units (unknown) date) replacement unknown) (unknown) (no (unknown) (unknown) History of (units (unk nown) date) hysterectomy unknown) (unknown) (no (unknown) (unknown) Home Medications (units (unknown) date) unknown) (unknown) (no (unknown) (unknown) Hospital, , (units ( unknown) date) C-SPINE WITHOUT unknown) CONTRAST, 10/10/2015, 7:42. (unknown) (no (unknown) (unknown) Hypertension (units (u nknown) date) unknown) (unknown) (no (unknown) (unknown) IMPRESSION:? No (units (unknown) date) acute intracranial unknown) hemorrhage is seen.? (unknown) (no (unknown) (unknown) IMPRESSION:? There (units (unknown) date) is a mildly unknown) displaced cervical spine fracture involving the (unknown) (no (unknown) (unknown) IMPRESSION:? (units (u nknown) date) unknown) (unknown) (no (unknown) (unknown) INDICATIONS:? C5Fx (units (unknown) date) with UE weakness unknown) (unknown) (no (unknown) (unknown) INDICATIONS:? fall (units (unknown) date) on thinners with unknown) neck hematoma (unknown) (no (unknown) (unknown) INDICATIONS:? fall (units (unknown) date) on thinners unknown) (unknown) (no (unknown) (unknown) INR (0.9-1.3) (units ( unknown) date) unknown) (unknown) (no (unknown) (unknown) INR 1.9 H (units (unkn own) date) (0.9-1.3) unknown) (unknown) (no (unknown) (unknown) If it would be (units (unknown) date) helpful for unknown) clinical management decision making, please consider (unknown) (no (unknown) (unknown) Image quality:? (units (unknown) date) Adequate for unknown) evaluation. (unknown) (no (unknown) (unknown) Image quality:? (units (unknown) date) Excellent.? unknown) (unknown) (no (unknown) (unknown) Imaging Data (units (u nknown) date) unknown) (unknown) (no (unknown) (unknown) Initial Vital (units ( unknown) date) Signs unknown) (unknown) (no (unknown) (unknown) Initial Vital (units ( unknown) date) Signs: unknown) (unknown) (no (unknown) (unknown) Inspection: normal (units (unknown) date) to inspection and unknown) non-distended (unknown) (no (unknown) (unknown) Interpretation: (units (unknown) date) unknown) (unknown) (no (unknown) (unknown) [facility] (units (unknown) date) [address] unknown) [place] [address] (unknown) (no (unknown) (unknown) [facility] (units (unknown) date) unknown) (unknown) (no (unknown) (unknown) [place] (units (unkno wn) date) unknown) (unknown) (no (unknown) (unknown) Lab Data (units (unkno wn) date) unknown) (unknown) (no (unknown) (unknown) Lab Results (units (un known) date) unknown) (unknown) (no (unknown) (unknown) Lab results (units (un known) date) reviewed: Yes I unknown) reviewed the patient's lab results. (unknown) (no (unknown) (unknown) Labs: (units (unkno wn) date) unknown) (unknown) (no (unknown) (unknown) Large area of (units ( unknown) date) ecchymosis on the unknown) right side of her neck. Also has a large area (unknown) (no (unknown) (unknown) Large area of (units ( unknown) date) ecchymosis specific unknown) on the right side of her anterior neck. There (unknown) (no (unknown) (unknown) Last Admin: (units (un known) date) 01/09/22 15:27 unknown) Dose: 125 mls/hr (unknown) (no (unknown) (unknown) Loc: ED (units (unkno wn) date) unknown) (unknown) (no (unknown) (unknown) Lungs and pleura:? (units (unknown) date) Small right pleural unknown) effusion.? Mild nonspecific right basilar (unknown) (no (unknown) (unknown) Lymph # (Auto) (units (unknown) date) (4305-7326) /uL unknown) (unknown) (no (unknown) (unknown) Lymph # (Auto) 800 (units (unknown) date) L (6991-7494) /uL unknown) (unknown) (no (unknown) (unknown) Lymph % (Auto) (units (unknown) date) (25-40) % unknown) (unknown) (no (unknown) (unknown) Lymph % (Auto) (units (unknown) date) 10.5 L (25-40) % unknown) (unknown) (no (unknown) (unknown) MCH (26-34) PG (units (unknown) date) unknown) (unknown) (no (unknown) (unknown) MCH 27.3 (26-34) (units (unknown) date) PG unknown) (unknown) (no (unknown) (unknown) MCHC (30-36) % (units (unknown) date) unknown) (unknown) (no (unknown) (unknown) MCHC 32.6 (30-36) (units (unknown) date) % unknown) (unknown) (no (unknown) (unknown) MCV (80-100) fL (units (unknown) date) unknown) (unknown) (no (unknown) (unknown) MCV 83.8 (80-100) (units (unknown) date) fL unknown) (unknown) (no (unknown) (unknown) MDM Narrative (units ( unknown) date) unknown) (unknown) (no (unknown) (unknown) MR cervical spine (units (unknown) date) wo con Stat unknown) (unknown) (no (unknown) (unknown) MR#: [id number] (units (unknown) date) unknown) (unknown) (no (unknown) (unknown) MRI cervical: (units ( unknown) date) unknown) (unknown) (no (unknown) (unknown) Magnetic Resonance (units (unknown) date) Report unknown) (unknown) (no (unknown) (unknown) Mediastinum:? (units ( unknown) date) Cardiac silhouette unknown) is mildly enlarged. (unknown) (no (unknown) (unknown) Medical Decision (units (unknown) date) Making unknown) (unknown) (no (unknown) (unknown) Medical History (units (unknown) date) (Reviewed 01/09/22 unknown) @ 17:43 by Rick Kelley DO) (unknown) (no (unknown) (unknown) Medical Records (units (unknown) date) unknown) (unknown) (no (unknown) (unknown) Medical decision (units (unknown) date) making narrative: unknown) (unknown) (no (unknown) (unknown) Medical records (units (unknown) date) reviewed: Yes I unknown) reviewed the patient's medical records. (unknown) (no (unknown) (unknown) Medication (units (unk nown) date) Instructions unknown) Recorded Confirmed (unknown) (no (unknown) (unknown) Medication (units (unk nown) date) Instructions unknown) Recorded (unknown) (no (unknown) (unknown) Mode of arrival: (units (unknown) date) EMS unknown) (unknown) (no (unknown) (unknown) Moderate to severe (units (unknown) date) cervical spine unknown) degenerative change can be seen, with (unknown) (no (unknown) (unknown) Harper # (Auto) (units ( unknown) date) (0-900) /uL unknown) (unknown) (no (unknown) (unknown) Harper # (Auto) 700 (units (unknown) date) (0-900) /uL unknown) (unknown) (no (unknown) (unknown) Harper % (Auto) (units ( unknown) date) (3-14) % unknown) (unknown) (no (unknown) (unknown) Harper % (Auto) 9.5 (units (unknown) date) (3-14) % unknown) (unknown) (no (unknown) (unknown) Mouth: oral (units (un known) date) mucosae normal unknown) (unknown) (no (unknown) (unknown) NECK CT (units (unkno wn) date) ANGIOGRAPHY:? unknown) (unknown) (no (unknown) (unknown) Neck (units (unkno wn) date) unknown) (unknown) (no (unknown) (unknown) Neuro (units (unkno wn) date) unknown) (unknown) (no (unknown) (unknown) Neut # (Auto) (units ( unknown) date) (3728-7426) /uL unknown) (unknown) (no (unknown) (unknown) Neut # (Auto) 5700 (units (unknown) date) (2642-8808) /uL unknown) (unknown) (no (unknown) (unknown) Neut % (Auto) (units ( unknown) date) (50-75) % unknown) (unknown) (no (unknown) (unknown) Neut % (Auto) 78.7 (units (unknown) date) H (50-75) % unknown) (unknown) (no (unknown) (unknown) No Action (units (unkn own) date) unknown) (unknown) (no (unknown) (unknown) No acute (units (unkno wn) date) intracranial unknown) process is seen.? (unknown) (no (unknown) (unknown) No definite cord (units (unknown) date) signal abnormality. unknown) (unknown) (no (unknown) (unknown) No gross (units (unkno wn) date) deformities. unknown) (unknown) (no (unknown) (unknown) No problems (units (un known) date) breathing. A unknown) cervical collar was placed secondary to midline (unknown) (no (unknown) (unknown) No (units (unkno wn) date) unknown) (unknown) (no (unknown) (unknown) Nodular (units (unkno wn) date) unknown) (unknown) (no (unknown) (unknown) Noncontrast 4.5 mm (units (unknown) date) thick angled axial unknown) sections acquired from the foramen magnum (unknown) (no (unknown) (unknown) Noncontrast images (units (unknown) date) were performed unknown) earlier in the day and not repeated.? ? After (unknown) (no (unknown) (unknown) Noncontrast (units (un known) date) sagittal T1 spin unknown) echo and T2 fast spin echo, sagittal STIR, (unknown) (no (unknown) (unknown) Normal axis (units (un known) date) unknown) (unknown) (no (unknown) (unknown) Note: Case (units (unk nown) date) discussed by unknown) telephone with Dr. Kelley at 2:32 p.m. [place] time on (unknown) (no (unknown) (unknown) Occasional PVC (units (unknown) date) unknown) (unknown) (no (unknown) (unknown) January 09, (units (un known) date) unknown) (unknown) (no (unknown) (unknown) Orbits appear (units ( unknown) date) normal.? unknown) (unknown) (no (unknown) (unknown) Ordered: (units (unkno wn) date) unknown) (unknown) (no (unknown) (unknown) Ordering Provider: (units (unknown) date) Rick Kelley D.O. 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, with moderate (unknown) (no (unknown) (unknown) Osteoarthritis (units (unknown) date) unknown) (unknown) (no (unknown) (unknown) Other: (units (unkno wn) date) unknown) (unknown) (no (unknown) (unknown) Oxygen Delivery (units (unknown) date) Method 01/09/22 unknown) 13:59 (unknown) (no (unknown) (unknown) Oxygen Delivery (units (unknown) date) Method Room Air unknown) Room Air Room Air (unknown) (no (unknown) (unknown) Oxygen Delivery (units (unknown) date) Method Room Air unknown) Room Air (unknown) (no (unknown) (unknown) Oxygen Delivery (units (unknown) date) Method Room Air unknown) (unknown) (no (unknown) (unknown) Oxygen Delivery (units (unknown) date) Method unknown) (unknown) (no (unknown) (unknown) PROCEDURE:? CT (units (unknown) date) ANGIO HEAD AND NECK unknown) (unknown) (no (unknown) (unknown) PROCEDURE:? CT (units (unknown) date) HEAD/BRAIN WO CON unknown) (unknown) (no (unknown) (unknown) PROCEDURE:? MR (units (unknown) date) CERVICAL SPINE WO unknown) CON (unknown) (no (unknown) (unknown) PROCEDURE:? XR (units (unknown) date) CHEST 1V unknown) (unknown) (no (unknown) (unknown) PT (10.1-12.7) (units (unknown) date) SECONDS unknown) (unknown) (no (unknown) (unknown) PT 22.5 H (units (unkn own) date) (10.1-12.7) SECONDS unknown) (unknown) (no (unknown) (unknown) Palpation: soft (units (unknown) date) and tender (Over unknown) the large contusion of her right lower (unknown) (no (unknown) (unknown) Partial (units (unkno wn) date) Thromboplastin Time unknown) Stat (unknown) (no (unknown) (unknown) Patient (units (unkno wn) date) Disposition: [facility] (no (unknown) (unknown) Patient History (units (unknown) date) unknown) (unknown) (no (unknown) (unknown) Patient is a (units (u nknown) date) 81-year-old female unknown) who was brought to the emergency department (unknown) (no (unknown) (unknown) Patient knows her (units (unknown) date) name. She knows unknown) that she is in hospital but thinks that she (unknown) (no (unknown) (unknown) Patient: (units (unkno wn) date) Ty DanielleKamryn M unknown) MR#: M (unknown) (no (unknown) (unknown) Patient: (units (unkno wn) date) Torito Danielletracy Byrd unknown) (unknown) (no (unknown) (unknown) Plt Count (units (unkn own) date) (150-400) X103/uL unknown) (unknown) (no (unknown) (unknown) Plt Count 194 (units ( unknown) date) (150-400) X103/uL unknown) (unknown) (no (unknown) (unknown) Posterior (units (unkn own) date) circulation:? The unknown) distal left T4 segment largely terminates in the (unknown) (no (unknown) (unknown) Posterior (units (unkno wn) date) circulation:? The unknown) origins of the vertebral arteries both appear widely (unknown) (no (unknown) (unknown) Potassium (units (unkn own) date) (3.4-5.1) mmol/L unknown) (unknown) (no (unknown) (unknown) Potassium 3.2 L (units (unknown) date) (3.4-5.1) mmol/L unknown) (unknown) (no (unknown) (unknown) Prescriptions: (units (unknown) date) unknown) (unknown) (no (unknown) (unknown) Previous Rx's (units ( unknown) date) unknown) (unknown) (no (unknown) (unknown) Procedure: CT (units ( unknown) date) angio head and neck unknown) (unknown) (no (unknown) (unknown) Procedure: CT (units ( unknown) date) head/brain wo con unknown) (unknown) (no (unknown) (unknown) Procedure: MR (units ( unknown) date) cervical spine wo unknown) con (unknown) (no (unknown) (unknown) Procedure: XR (units ( unknown) date) chest 1V unknown) (unknown) (no (unknown) (unknown) Prothrombin Time (units (unknown) date) INR Stat unknown) (unknown) (no (unknown) (unknown) Psych (units (unkno wn) date) unknown) (unknown) (no (unknown) (unknown) Pulse Oximetry 96 (units (unknown) date) 96 unknown) (unknown) (no (unknown) (unknown) Pulse Oximetry 96 (units (unknown) date) 97 unknown) (unknown) (no (unknown) (unknown) Pulse Oximetry 97 (units (unknown) date) 96 unknown) (unknown) (no (unknown) (unknown) Pulse Oximetry 97 (units (unknown) date) 98 unknown) (unknown) (no (unknown) (unknown) Pulse Oximetry 97 (units (unknown) date) unknown) (unknown) (no (unknown) (unknown) Pulse Oximetry 98 (units (unknown) date) 01/09/22 13:59 unknown) (unknown) (no (unknown) (unknown) Pulse Oximetry 98 (units (unknown) date) 97 97 unknown) (unknown) (no (unknown) (unknown) Pulse Oximetry 98 (units (unknown) date) 98 unknown) (unknown) (no (unknown) (unknown) Pulse Rate 87 87 (units (unknown) date) unknown) (unknown) (no (unknown) (unknown) Pulse Rate 87 92 H (units (unknown) date) unknown) (unknown) (no (unknown) (unknown) Pulse Rate 88 (units ( unknown) date) 01/09/22 13:59 unknown) (unknown) (no (unknown) (unknown) Pulse Rate 88 87 (units (unknown) date) 88 unknown) (unknown) (no (unknown) (unknown) Pulse Rate 88 91 H (units (unknown) date) unknown) (unknown) (no (unknown) (unknown) Pulse Rate 89 91 H (units (unknown) date) unknown) (unknown) (no (unknown) (unknown) Pulse Rate 91 H 92 (units (unknown) date) H unknown) (unknown) (no (unknown) (unknown) Pulse Rate 92 H 88 (units (unknown) date) unknown) (unknown) (no (unknown) (unknown) Pupils: PERRL (units ( unknown) date) unknown) (unknown) (no (unknown) (unknown) RBC (4.0-5.2) (units ( unknown) date) X106/uL unknown) (unknown) (no (unknown) (unknown) RBC 3.39 L (units (unk nown) date) (4.0-5.2) X106/uL unknown) (unknown) (no (unknown) (unknown) RDW (11.6-14.8) % (units (unknown) date) unknown) (unknown) (no (unknown) (unknown) RDW 19.6 H (units (unk nown) date) (11.6-14.8) % unknown) (unknown) (no (unknown) (unknown) ROS Unobtainable: (units (unknown) date) All systems unknown) reviewed + are unremarkable except as noted in HPI (unknown) (no (unknown) (unknown) Radiologist's (units ( unknown) date) Impression: unknown) (unknown) (no (unknown) (unknown) Rate: regular rate (units (unknown) date) unknown) (unknown) (no (unknown) (unknown) Referrals: (units (unk nown) date) unknown) (unknown) (no (unknown) (unknown) Related Data (units (u nknown) date) unknown) (unknown) (no (unknown) (unknown) 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 (unknown) (no (unknown) (unknown) Resp (units (unkno wn) date) unknown) (unknown) (no (unknown) (unknown) Respiratory Rate (units (unknown) date) 13 17 unknown) (unknown) (no (unknown) (unknown) Respiratory Rate (units (unknown) date) 18 01/09/22 13:59 unknown) (unknown) (no (unknown) (unknown) Respiratory Rate (units (unknown) date) 18 12 unknown) (unknown) (no (unknown) (unknown) Respiratory Rate (units (unknown) date) 18 17 20 unknown) (unknown) (no (unknown) (unknown) Respiratory Rate (units (unknown) date) 18 18 unknown) (unknown) (no (unknown) (unknown) Respiratory Rate (units (unknown) date) 18 21 unknown) (unknown) (no (unknown) (unknown) Respiratory Rate (units (unknown) date) 18 31 H unknown) (unknown) (no (unknown) (unknown) Respiratory Rate (units (unknown) date) 30 H 22 unknown) (unknown) (no (unknown) (unknown) Result diagrams: (units (unknown) date) unknown) (unknown) (no (unknown) (unknown) Review of Systems (units (unknown) date) unknown) (unknown) (no (unknown) (unknown) Rhythm: abnormal (units (unknown) date) rhythm unknown) (unknown) (no (unknown) (unknown) Right soft tissue (units (unknown) date) neck hematoma with unknown) mild surrounding inflammatory change. (unknown) (no (unknown) (unknown) Jefry Deleon MD (units (unknown) date) [Primary Care unknown) Provider] (unknown) (no (unknown) (unknown) SARS-CoV-2 (PCR) (units (unknown) date) (Negative) unknown) (unknown) (no (unknown) (unknown) SARS-CoV-2 (PCR) (units (unknown) date) Negative (Negative) unknown) (unknown) (no (unknown) (unknown) SWELLING (units (unkno wn) date) unknown) (unknown) (no (unknown) (unknown) Scores (units (unkno wn) date) unknown) (unknown) (no (unknown) (unknown) Severe (units (unkno wn) date) degenerative unknown) changes are present throughout the cervical spine including (unknown) (no (unknown) (unknown) Severe (units (unkno wn) date) unknown) (unknown) (no (unknown) (unknown) She is on blood (units (unknown) date) thinner secondary unknown) to atrial fibrillation. She had a CT scan of (unknown) (no (unknown) (unknown) Signed By: (units (unk nown) date) unknown) (unknown) (no (unknown) (unknown) Signed (units (unkno wn) date) unknown) (unknown) (no (unknown) (unknown) Since that time (units (unknown) date) she has had unknown) multiple falls. She states she is not necessarily (unknown) (no (unknown) (unknown) Sinuses:? Sinuses (units (unknown) date) and mastoids are unknown) clear.? (unknown) (no (unknown) (unknown) Sinuses:? (units (unkn own) date) Visualized sinuses unknown) and mastoids are clear.? (unknown) (no (unknown) (unknown) Skin (units (unkno wn) date) unknown) (unknown) (no (unknown) (unknown) Skull and face:? (units (unknown) date) Calvarium and unknown) facial bones appear intact, without suspicious (unknown) (no (unknown) (unknown) Skull and face:? (units (unknown) date) Calvarium and unknown) visualized facial bones appear intact, without (unknown) (no (unknown) (unknown) Social History (units (unknown) date) (Reviewed 01/09/22 unknown) @ 17:43 by Rick Kelley DO) (unknown) (no (unknown) (unknown) Sodium (137-145) (units (unknown) date) mmol/L unknown) (unknown) (no (unknown) (unknown) Sodium 138 (units (unk nown) date) (137-145) mmol/L unknown) (unknown) (no (unknown) (unknown) Sodium Chloride (units (unknown) date) (Normal Saline unknown) 0.9%) 1,000 mls @ 125 mls/hr IV CONT BISHOP (unknown) (no (unknown) (unknown) Soft tissues:? (units (unknown) date) Focal hematoma with unknown) soft tissue swelling can be seen involving (unknown) (no (unknown) (unknown) Source: patient (units (unknown) date) and EMS unknown) (unknown) (no (unknown) (unknown) Speech: speech (units (unknown) date) normal unknown) (unknown) (no (unknown) (unknown) Stated complaint: (units (unknown) date) Multiple falls unknown) (unknown) (no (unknown) (unknown) Surgical History (units (unknown) date) (Reviewed 01/09/22 unknown) @ 17:43 by Rick Kelley DO) (unknown) (no (unknown) (unknown) Surgical changes (units (unknown) date) and devices:? Left unknown) axillary metal clips.? (unknown) (no (unknown) (unknown) TECHNIQUE:? One (units (unknown) date) view of the chest unknown) was acquired.? (unknown) (no (unknown) (unknown) TECHNIQUE:? (units (un known) date) unknown) (unknown) (no (unknown) (unknown) Temperature 97.6 F (units (unknown) date) 97.5 F L unknown) (unknown) (no (unknown) (unknown) Temperature (units (un known) date) unknown) (unknown) (no (unknown) (unknown) The head CT and (units (unknown) date) cervical spine CT unknown) at that time is reported as no acute (unknown) (no (unknown) (unknown) The high (units (unkno wn) date) probability of a unknown) clinically significant, sudden or life threatening (unknown) (no (unknown) (unknown) The more superior (units (unknown) date) extracranial unknown) portions of both vertebral arteries also (unknown) (no (unknown) (unknown) There are large (units (unknown) date) posterior disc unknown) osteophyte complexes throughout the cervical (unknown) (no (unknown) (unknown) There is an acute (units (unknown) date) compression unknown) deformity at C5 which likely extends into the (unknown) (no (unknown) (unknown) There is diffuse (units (unknown) date) edema within the unknown) anterior and posterior paraspinous (unknown) (no (unknown) (unknown) These imaging (units ( unknown) date) 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 ranjith Kelley at 4:48 p.m. on January 09, 2022. (unknown) (no (unknown) (unknown) Time Seen by (units (u nknown) date) Provider: 01/09/22 unknown) 14:06 (unknown) (no (unknown) (unknown) Total Critical (units (unknown) date) Care Time: 40 unknown) (unknown) (no (unknown) (unknown) Type and Screen (units (unknown) date) Stat unknown) (unknown) (no (unknown) (unknown) Urinary (units (unkno wn) date) incontinence unknown) (unknown) (no (unknown) (unknown) Ventricular rate (units (unknown) date) 86 unknown) (unknown) (no (unknown) (unknown) Vital Signs - 8 hr (units (unknown) date) unknown) (unknown) (no (unknown) (unknown) Vital Signs (units (un known) date) unknown) (unknown) (no (unknown) (unknown) Vital signs: (units (u nknown) date) unknown) (unknown) (no (unknown) (unknown) WBC (4.5-11.0) (units (unknown) date) X103/uL unknown) (unknown) (no (unknown) (unknown) WBC 7.2 (4.5-11.0) (units (unknown) date) X103/uL unknown) (unknown) (no (unknown) (unknown) Who was able to (units (unknown) date) review the ED visit unknown) from 2 days ago at the outside facility. (unknown) (no (unknown) (unknown) XR chest 1V Stat (units (unknown) date) unknown) (unknown) (no (unknown) (unknown) XRay Report (units (un known) date) unknown) (unknown) (no (unknown) (unknown) [Embedded Image (units (unknown) date) Not Available] unknown) (unknown) (no (unknown) (unknown) [x] Data Review (units (unknown) date) and interpretation unknown) (unknown) (no (unknown) (unknown) [x] Documentation (units (unknown) date) unknown) (unknown) (no (unknown) (unknown) [x] Medication (units (unknown) date) orders and unknown) management (unknown) (no (unknown) (unknown) [x] Patient (units (un known) date) assessment and unknown) monitoring of vital signs (unknown) (no (unknown) (unknown) a (units (unkno wn) date) unknown) (unknown) (no (unknown) (unknown) acquired from (units ( unknown) date) unknown) (unknown) (no (unknown) (unknown) administration of (units (unknown) date) intravenous unknown) contrast, 1 mm thick sections acquired from the (unknown) (no (unknown) (unknown) age, with (units (unkn own) date) unknown) (unknown) (no (unknown) (unknown) aligned.? (units (unkn own) date) unknown) (unknown) (no (unknown) (unknown) and below (units (unkn own) date) unknown) (unknown) (no (unknown) (unknown) and courses.? The (units (unknown) date) bifurcation regions unknown) demonstrate generalized atherosclerotic (unknown) (no (unknown) (unknown) and neck (units (unkno wn) date) separately. For unknown) radiation dose reduction, the following was used:? (unknown) (no (unknown) (unknown) and (units (unkno wn) date) unknown) (unknown) (no (unknown) (unknown) and/or volume (units ( unknown) date) rendering reformats unknown) were acquired of the central intracranial (unknown) (no (unknown) (unknown) aneurysms are (units ( unknown) date) seen.? unknown) (unknown) (no (unknown) (unknown) anterior cerebral (units (unknown) date) arteries is normal unknown) and symmetric.? The flow within the middle (unknown) (no (unknown) (unknown) aortic arch (units (un known) date) unknown) (unknown) (no (unknown) (unknown) appear (units (unkno wn) date) unknown) (unknown) (no (unknown) (unknown) appearing (units (unkn own) date) unknown) (unknown) (no (unknown) (unknown) appears intact.? 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 (unknown) (no (unknown) (unknown) arise from (units (unk nown) date) unknown) (unknown) (no (unknown) (unknown) arrival here in (units (unknown) date) the emergency unknown) department. She is having decreased sensation in (unknown) (no (unknown) (unknown) arteries is normal (units (unknown) date) and symmetric.? The unknown) anterior communicating artery is seen.? (unknown) (no (unknown) (unknown) arteries, (units (unkn own) date) unknown) (unknown) (no (unknown) (unknown) arteries. (units (unkn own) date) unknown) (unknown) (no (unknown) (unknown) aspect of the C5 (units (unknown) date) vertebral body. unknown) (unknown) (no (unknown) (unknown) at C5-C6, as on (units (unknown) date) series 14, images unknown) 45-46. (unknown) (no (unknown) (unknown) atherosclerotic (units (unknown) date) calcification, with unknown) up to 70% narrowing.? There is a normal (unknown) (no (unknown) (unknown) atherosclerotic (units (unknown) date) unknown) (unknown) (no (unknown) (unknown) attention, (units (unk nown) date) intervention and unknown) personal management. The aggregate critical care (unknown) (no (unknown) (unknown) automated (units (unkn own) date) unknown) (unknown) (no (unknown) (unknown) available for my (units (unknown) date) review. She was unknown) subsequently discharged from the hospital. (unknown) (no (unknown) (unknown) axial (units (unkno wn) date) unknown) (unknown) (no (unknown) (unknown) basilar artery.? (units (unknown) date) Flow within the unknown) posterior cerebral arteries is normal and (unknown) (no (unknown) (unknown) bilateral (units (unkn own) date) unknown) (unknown) (no (unknown) (unknown) body (units (unkno wn) date) unknown) (unknown) (no (unknown) (unknown) bridging (units (unkno wn) date) osteophytes.? The unknown) disc spaces are relatively well preserved.? There is (unknown) (no (unknown) (unknown) broad-based (units (un known) date) unknown) (unknown) (no (unknown) (unknown) bruising on her (units (unknown) date) shoulder. CT scan unknown) of the chest abdomen pelvis was ordered. (unknown) (no (unknown) (unknown) calcification and (units (unknown) date) irregularity, with unknown) 80-90% narrowing seen both proximal (unknown) (no (unknown) (unknown) calcification, (units (unknown) date) with 60-70% unknown) narrowing seen on each side.? The flow within the (unknown) (no (unknown) (unknown) caliber (units (unkno wn) date) unknown) (unknown) (no (unknown) (unknown) canal stenosis (units (unknown) date) with deformity of unknown) the cord.? The cord measures 4 mm at its (unknown) (no (unknown) (unknown) carotid arteries (units (unknown) date) appear patent.? The unknown) common carotid arteries demonstrate normal (unknown) (no (unknown) (unknown) central canal (units ( unknown) date) narrowing at C5-C6. unknown) (unknown) (no (unknown) (unknown) cerebral (units (unkno wn) date) unknown) (unknown) (no (unknown) (unknown) cervical spinal (units (unknown) date) tenderness by EMS. unknown) She was not on a backboard upon arrival. (unknown) (no (unknown) (unknown) cervical spine.? (units (unknown) date) unknown) (unknown) (no (unknown) (unknown) change. (units (unkno wn) date) unknown) (unknown) (no (unknown) (unknown) chest wall (units (unk nown) date) calcifications or unknown) pulmonary nodules or objects external to the (unknown) (no (unknown) (unknown) clopidogrel 75 mg (units (unknown) date) tablet (Plavix) 75 unknown) mg PO QDAY ##0 08/06/16 (unknown) (no (unknown) (unknown) clopidogrel (units (un known) date) [Plavix] 75 MG unknown) tablet (unknown) (no (unknown) (unknown) codeine [CODEINE] (units (unknown) date) Allergy Severe ORAL unknown) Verified 01/09/22 14:22 (unknown) (no (unknown) (unknown) common (units (unkno wn) date) unknown) (unknown) (no (unknown) (unknown) complaining of (units (unknown) date) neck discomfort. It unknown) was reported she is unsteady on her feet. (unknown) (no (unknown) (unknown) congested. (units (unk nown) date) unknown) (unknown) (no (unknown) (unknown) consistent with a (units (unknown) date) 3 column fracture.? unknown) This is considered an unstable fracture.? (unknown) (no (unknown) (unknown) contraindication). (units (unknown) date) ? unknown) (unknown) (no (unknown) (unknown) days. She (units (unkn own) date) describes unknown) increasing weakness in her upper and lower extremity. She (unknown) (no (unknown) (unknown) decreased sensation (units (unknown) date) at the C5 dermatome unknown) and below that seems to be more profound (unknown) (no (unknown) (unknown) dedicated cervical (units (unknown) date) spine MRI for unknown) further evaluation (assuming that there is no (unknown) (no (unknown) (unknown) degenerative (units (u nknown) date) changes are also unknown) present at C1-2 with subchondral cystic (unknown) (no (unknown) (unknown) degenerative (units (u nknown) date) unknown) (unknown) (no (unknown) (unknown) demonstrate (units (un known) date) unknown) (unknown) (no (unknown) (unknown) deterioration of (units (unknown) date) the []neurologic unknown) system(s) required my full and direct (unknown) (no (unknown) (unknown) did receive a call (units (unknown) date) from Radiology unknown) stating that there was concern about a C5 (unknown) (no (unknown) (unknown) dimension. (units (unk nown) date) unknown) (unknown) (no (unknown) (unknown) disc bulges.? (units ( unknown) date) These findings are unknown) most severe at C4-5, C5-6, C6-7, and C7-T1.? (unknown) (no (unknown) (unknown) dislocation. (units (u nknown) date) unknown) (unknown) (no (unknown) (unknown) elements do not (units (unknown) date) appear involved. unknown) (unknown) (no (unknown) (unknown) exposure control, (units (unknown) date) adjustment of mA unknown) and/or kV according to patient size.? (unknown) (no (unknown) (unknown) extra-axial fluid (units (unknown) date) collections.? unknown) (unknown) (no (unknown) (unknown) feel called on all (units (unknown) date) 4 extremities and unknown) this is appropriate. She does have (unknown) (no (unknown) (unknown) following (units (unkn own) date) unknown) (unknown) (no (unknown) (unknown) for a 3 column (units (unknown) date) unstable fracture. unknown) Patient has been in a cervical collar since (unknown) (no (unknown) (unknown) foraminal oblique (units (unknown) date) unknown) (unknown) (no (unknown) (unknown) frontal (units (unkno wn) date) unknown) (unknown) (no (unknown) (unknown) glimepiride 2 mg (units (unknown) date) tablet (Amaryl) 2 unknown) mg PO BID ##0 08/20/16 (unknown) (no (unknown) (unknown) glimepiride (units (un known) date) [Amaryl] 2 MG unknown) tablet (unknown) (no (unknown) (unknown) height loss.? No (units (unknown) date) definite unknown) retropulsed fracture fragments.? No other fracture or (unknown) (no (unknown) (unknown) her head and also (units (unknown) date) her neck which unknown) reported is unremarkable. These reports were (unknown) (no (unknown) (unknown) her right leg off (units (unknown) date) the bed just a very unknown) small amount. Patient is on Eliquis. (unknown) (no (unknown) (unknown) hydrocodone 5 (units ( unknown) date) mg-acetaminophen unknown) 325 1 tab PO Q4HP PRN #30 tabs 08/21/16 (unknown) (no (unknown) (unknown) hydrocodone-acetam (units (unknown) date) inophen [[place]] 5 unknown) MG/325 MG tablet (unknown) (no (unknown) (unknown) hyperostosis (units (u nknown) date) unknown) (unknown) (no (unknown) (unknown) in her upper and (units (unknown) date) lower extremities. unknown) She is not have any problems swallowing. (unknown) (no (unknown) (unknown) infarction seen, (units (unknown) date) with focal volume unknown) loss and encephalomalacia.? There is (unknown) (no (unknown) (unknown) inferior (units (unkno wn) date) unknown) (unknown) (no (unknown) (unknown) interface (units (unkn own) date) unknown) (unknown) (no (unknown) (unknown) internal carotid (units (unknown) date) artery unknown) atherosclerosis.? (unknown) (no (unknown) (unknown) internal carotid (units (unknown) date) unknown) (unknown) (no (unknown) (unknown) intervertebral (units (unknown) date) disc space unknown) narrowing, disc desiccation and height loss, and (unknown) (no (unknown) (unknown) intracranial (units (u nknown) date) unknown) (unknown) (no (unknown) (unknown) is also made with (units (unknown) date) the prior outside unknown) cervical spine CT examinations 01/07/2022 (unknown) (no (unknown) (unknown) is in the hospital (units (unknown) date) that she was at a unknown) couple days ago. She thinks that it is (unknown) (no (unknown) (unknown) is no pulsatile (units (unknown) date) lesions. No unknown) crepitus. Is tender to palpation. (unknown) (no (unknown) (unknown) it is not sharp (units (unknown) date) when she is touched unknown) with a sharp object. (unknown) (no (unknown) (unknown) lateral neck (units (un known) date) superiorly.? The unknown) hematoma itself measures 3.2 by 1.8 cm in greatest (unknown) (no (unknown) (unknown) left (units (unkno wn) date) unknown) (unknown) (no (unknown) (unknown) left. (units (unkno wn) date) unknown) (unknown) (no (unknown) (unknown) lesions.? (units (unkn own) date) unknown) (unknown) (no (unknown) (unknown) lives (units (unkno wn) date) independently: Yes unknown) (unknown) (no (unknown) (unknown) lower extremity (units (unknown) date) but very little if unknown) any in her left lower extremity. She can (unknown) (no (unknown) (unknown) marital status: (units (unknown) date) unknown) (unknown) (no (unknown) (unknown) matter chronic (units (unknown) date) small vessel unknown) ischemic changes.? There is a remote right superior (unknown) (no (unknown) (unknown) may represent (units ( unknown) date) atelectasis, unknown) aspiration or pneumonia not excludable. (unknown) (no (unknown) (unknown) mg tablet ([place]) (units (unknown) date) unknown) (unknown) (no (unknown) (unknown) mildly (units (unkno wn) date) unknown) (unknown) (no (unknown) (unknown) move her left (units ( unknown) date) lower extremity. unknown) Can flex and extend her right ankle and can lift (unknown) (no (unknown) (unknown) multilevel (units (unk nown) date) unknown) (unknown) (no (unknown) (unknown) musculature. (units (u nknown) date) unknown) (unknown) (no (unknown) (unknown) narrowest point (units (unknown) date) unknown) (unknown) (no (unknown) (unknown) narrowest (units (unkn own) date) unknown) (unknown) (no (unknown) (unknown) narrowing seen (units (unknown) date) unknown) (unknown) (no (unknown) (unknown) neck. It is not (units (unknown) date) impinging on her unknown) airway. There is no signs of active bleeding (unknown) (no (unknown) (unknown) neurosurgical (units ( unknown) date) consultation unknown) recommended. (unknown) (no (unknown) (unknown) normal courses and (units (unknown) date) calibers.? The unknown) right vertebral artery is dominant to the (unknown) (no (unknown) (unknown) of ecchymosis in (units (unknown) date) her right upper unknown) quadrant/lower ribs. (unknown) (no (unknown) (unknown) on the CT scan. (units (unknown) date) Repeat CT scans unknown) today show no acute changes in the brain. I (unknown) (no (unknown) (unknown) on the right than (units (unknown) date) the left. She unknown) states she can feel something touching her but (unknown) (no (unknown) (unknown) opacities project (units (unknown) date) over the left mid unknown) lung, approximately 2 centimeters each (unknown) (no (unknown) (unknown) opacities.? No (units (unknown) date) pneumothorax.? unknown) Pulmonary vasculature appears prominent. two? (unknown) (no (unknown) (unknown) paired (units (unkno wn) date) unknown) (unknown) (no (unknown) (unknown) paramedics. That (units (unknown) date) was her 4th unknown) emergency department visit in 4 days. She was (unknown) (no (unknown) (unknown) patent.? No (units (un known) date) unknown) (unknown) (no (unknown) (unknown) patent.? (units (unkno wn) date) unknown) (unknown) (no (unknown) (unknown) pathology. She (units (unknown) date) does have a large unknown) area of ecchymosis on the right side of her (unknown) (no (unknown) (unknown) patient (units (unkno wn) date) unknown) (unknown) (no (unknown) (unknown) patient.? CT of (units (unknown) date) unknown) (unknown) (no (unknown) (unknown) pedicles (units (unkno wn) date) consistent with a 3 unknown) column fracture.? There is only minimal vertebral (unknown) (no (unknown) (unknown) pedicles (units (unkno wn) date) unknown) (unknown) (no (unknown) (unknown) point posterior to (units (unknown) date) the C5-6 disc unknown) interspace.? There is extensive flattening of (unknown) (no (unknown) (unknown) posterior inferior (units (unknown) date) cerebellar artery. unknown) (unknown) (no (unknown) (unknown) posterior inferior (units (unknown) date) cerebellar artery.? unknown) The right V4 segment demonstrates focal (unknown) (no (unknown) (unknown) posterior to the (units (unknown) date) C5-6 disc unknown) interspace.? (unknown) (no (unknown) (unknown) posterior (units (unkn own) date) unknown) (unknown) (no (unknown) (unknown) present which (units ( unknown) date) unknown) (unknown) (no (unknown) (unknown) prominent (units (unkn own) date) unknown) (unknown) (no (unknown) (unknown) relatively (units (unkn own) date) prominent unknown) ossification of the posterior longitudinal ligament seen C5 (unknown) (no (unknown) (unknown) reported (units (unkno wn) date) procedures but unknown) includes the following: (unknown) (no (unknown) (unknown) represent (units (unkn own) date) unknown) (unknown) (no (unknown) (unknown) 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 The canal measures 4 mm at its (unknown) (no (unknown) (unknown) resultant (units (unkno wn) date) ventricular and unknown) sulcal prominence.? There are periventricular and deep (unknown) (no (unknown) (unknown) rib/upper abdomen) (units (unknown) date) unknown) (unknown) (no (unknown) (unknown) right. She has (units (unknown) date) very limited if any unknown) movement in her upper extremities. Can not (unknown) (no (unknown) (unknown) sagittal T2 fast (units (unknown) date) spin echo, and unknown) axial gradient echo or T2 fast spin echo through (unknown) (no (unknown) (unknown) seen (units (unkno wn) date) unknown) (unknown) (no (unknown) (unknown) shrimp [SHRIMP] (units (unknown) date) AdvReac unknown) Intermediate VOMITING Verified 01/09/22 14:22 (unknown) (no (unknown) (unknown) size.? (units (unkno wn) date) unknown) (unknown) (no (unknown) (unknown) spinal cord. A (units (unknown) date) right-sided chest unknown) wall contusion was noted. She also has (unknown) (no (unknown) (unknown) spinal fracture. (units (unknown) date) An MRI was unknown) obtained. Received a call from Radiology concern (unknown) (no (unknown) (unknown) spine with (units (unk nown) date) unknown) (unknown) (no (unknown) (unknown) suspicious (units (unk nown) date) unknown) (unknown) (no (unknown) (unknown) swelling around (units (unknown) date) her neck. Patient unknown) has had increasing falls over the past couple (unknown) (no (unknown) (unknown) symmetric.? No (units (unknown) date) unknown) (unknown) (no (unknown) (unknown) the C5 dermatome (units (unknown) date) and lower unknown) bilaterally but it seems to be more profound on the (unknown) (no (unknown) (unknown) the aortic arch. (units (unknown) date) Atherosclerotic unknown) calcification is noted.? ? The origins of the (unknown) (no (unknown) (unknown) the chest could be (units (unknown) date) obtained as unknown) clinically indicated.? (unknown) (no (unknown) (unknown) the cord.? (units (unk nown) date) unknown) (unknown) (no (unknown) (unknown) the foramen magnum (units (unknown) date) to the vertex.? unknown) 3-dimensional ttslmez-othnbhofb-k rojection (unknown) (no (unknown) (unknown) the right (units (unkn own) date) unknown) (unknown) (no (unknown) (unknown) the (units (unkno wn) date) unknown) (unknown) (no (unknown) (unknown) through the [place] (units (unknown) date) of [place].? unknown) Post-contrast 4.5 mm thick sections then re (unknown) (no (unknown) (unknown) through the (units (un known) date) vertebral body, and unknown) also involving the prominent osteophytes.? The (unknown) (no (unknown) (unknown) through (units (unkno wn) date) unknown) (unknown) (no (unknown) (unknown) time was [40] (units ( unknown) date) minutes. This time unknown) is in addition to time spent performing (unknown) (no (unknown) (unknown) to severe (units (unkn own) date) unknown) (unknown) (no (unknown) (unknown) to the (units (unkno wn) date) unknown) (unknown) (no (unknown) (unknown) today for (units (unkn own) date) evaluation of unknown) increasing falls and also increasing redness and (unknown) (no (unknown) (unknown) tripping over (units ( unknown) date) anything she is unknown) just losing her balance and is increasingly weak (unknown) (no (unknown) (unknown) unable to move her (units (unknown) date) upper extremities. unknown) She has slight movement in her right (unknown) (no (unknown) (unknown) unremarkable.? (units (unknown) date) unknown) (unknown) (no (unknown) (unknown) vasculature (units (un known) date) unknown) (unknown) (no (unknown) (unknown) ventricles are (units (unknown) date) symmetric in size unknown) and shape.? (unknown) (no (unknown) (unknown) vertex, with (units (u nknown) date) coronal and unknown) sagittal reformats.? For radiation dose reduction, the (unknown) (no (unknown) (unknown) was seen at an (units (unknown) date) outside facility 2 unknown) days ago after being brought there by (unknown) (no (unknown) (unknown) was used:? (units (unk nown) date) automated exposure unknown) control, adjustment of mA and/or kV according to (unknown) (no (unknown) (unknown) white (units (unkno wn) date) unknown) (unknown) (no (unknown) (unknown) with 60-70% (units (un known) date) narrowing seen on unknown) each side. Result panel 61 (unknown) (no (unknown) (unknown) (no value) (units (unk nown) date) unknown) (unknown) (no (unknown) (unknown) <Electronically (units (unknown) date) signed by Rick cm) Alyssa Kelley> (unknown) (no (unknown) (unknown) (DISH).? (units (unkno wn) date) unknown) (unknown) (no (unknown) (unknown) (MIP) (units (unkno wn) date) unknown) (unknown) (no (unknown) (unknown) [phone] (units (unkn own) date) unknown) (unknown) (no (unknown) (unknown) 1 tab PO Q4HP (units ( unknown) date) PRNQty: 30 0RF unknown) (unknown) (no (unknown) (unknown) 1. Horizontally (units (unknown) date) oriented C5 unknown) fracture which likely extends into the bilateral (unknown) (no (unknown) (unknown) 1. Small right (units (unknown) date) pleural effusion.? unknown) Nonspecific right basilar opacities are (unknown) (no (unknown) (unknown) 01/09/22 01/09/22 (units (unknown) date) 01/09/22 unknown) Range/Units (unknown) (no (unknown) (unknown) 01/09/22 01/09/22 (units (unknown) date) Range/Units unknown) (unknown) (no (unknown) (unknown) 01/09/22 13:57 (units (unknown) date) unknown) (unknown) (no (unknown) (unknown) 01/09/22 14:06 (units (unknown) date) unknown) (unknown) (no (unknown) (unknown) 01/09/22 14:15 (units (unknown) date) unknown) (unknown) (no (unknown) (unknown) 01/09/22 14:17 (units (unknown) date) unknown) (unknown) (no (unknown) (unknown) 01/09/22 14:30 (units (unknown) date) unknown) (unknown) (no (unknown) (unknown) 01/09/22 15:47 (units (unknown) date) unknown) (unknown) (no (unknown) (unknown) 01/09/22 17:26 (units (unknown) date) unknown) (unknown) (no (unknown) (unknown) 01/09/22 17:33 (units (unknown) date) unknown) (unknown) (no (unknown) (unknown) 01/09/22 1859 (units ( unknown) date) unknown) (unknown) (no (unknown) (unknown) 01/09/22 (units (unkno wn) date) unknown) (unknown) (no (unknown) (unknown) [address] [place] [address] (units (unknown) date) unknown) (unknown) (no (unknown) (unknown) 13:57 13:57 13:57 (units (unknown) date) unknown) (unknown) (no (unknown) (unknown) 13:59 01/09/22 (units (unknown) date) unknown) (unknown) (no (unknown) (unknown) 14:00 (units (unkno wn) date) unknown) (unknown) (no (unknown) (unknown) 14:01 01/09/22 (units (unknown) date) unknown) (unknown) (no (unknown) (unknown) 14:30 17:26 (units (un known) date) unknown) (unknown) (no (unknown) (unknown) 14:30 (units (unkno wn) date) unknown) (unknown) (no (unknown) (unknown) 14:31 01/09/22 (units (unknown) date) unknown) (unknown) (no (unknown) (unknown) 15:00 (units (unkno wn) date) unknown) (unknown) (no (unknown) (unknown) 15:30 01/09/22 (units (unknown) date) unknown) (unknown) (no (unknown) (unknown) 16:32 01/09/22 (units (unknown) date) unknown) (unknown) (no (unknown) (unknown) 16:34 01/09/22 (units (unknown) date) unknown) (unknown) (no (unknown) (unknown) 16:34 (units (unkno wn) date) unknown) (unknown) (no (unknown) (unknown) 16:59 01/09/22 (units (unknown) date) unknown) (unknown) (no (unknown) (unknown) 16:59 (units (unkno wn) date) unknown) (unknown) (no (unknown) (unknown) 17:00 01/09/22 (units (unknown) date) unknown) (unknown) (no (unknown) (unknown) 17:01 01/09/22 (units (unknown) date) unknown) (unknown) (no (unknown) (unknown) 17:01 (units (unkno wn) date) unknown) (unknown) (no (unknown) (unknown) 17:30 01/09/22 (units (unknown) date) unknown) (unknown) (no (unknown) (unknown) 18:00 01/09/22 (units (unknown) date) unknown) (unknown) (no (unknown) (unknown) 18:31 (units (unkno wn) date) unknown) (unknown) (no (unknown) (unknown) 1923 but very (units ( unknown) date) quickly corrected unknown) this when I told her it was 2021. Patient is (unknown) (no (unknown) (unknown) 2 mg PO BID Qty: 0 (units (unknown) date) unknown) (unknown) (no (unknown) (unknown) 2. Cardiac (units (unk nown) date) silhouette is unknown) mildly enlarged and pulmonary vasculature appears (unknown) (no (unknown) (unknown) 2. Severe (units (unkn own) date) degenerative unknown) change, posterior disc osteophyte complexes, and severe (unknown) (no (unknown) (unknown) 2021. ? (units (unkno wn) date) unknown) (unknown) (no (unknown) (unknown) 3. Extensive edema (units (unknown) date) throughout the unknown) surrounding paraspinous musculature.? (unknown) (no (unknown) (unknown) 3. Nodular (units (unk nown) date) opacities project unknown) over the left mid lung, nonspecific.? These could (unknown) (no (unknown) (unknown) 07/25/2021.? (units (un known) date) unknown) (unknown) (no (unknown) (unknown) 75 mg PO QDAY Qty: (units (unknown) date) 0 unknown) (unknown) (no (unknown) (unknown) 80-90% narrowing (units (unknown) date) can be seen unknown) involving both proximal internal carotid arteries. (unknown) (no (unknown) (unknown) ? (units (unkno wn) date) unknown) (unknown) (no (unknown) (unknown) ?Additional 7 mm (units (unknown) date) thick coronal unknown) maximum intensity projection (MIP) reformats (unknown) (no (unknown) (unknown) APTT (26-36) (units (u nknown) date) SECONDS unknown) (unknown) (no (unknown) (unknown) APTT 29 (26-36) (units (unknown) date) SECONDS unknown) (unknown) (no (unknown) (unknown) Abdomen and (units (un known) date) Pelvis: unknown) (unknown) (no (unknown) (unknown) Abdominal wall:? (units (unknown) date) Abdominal wall unknown) intact without evidence of ventral or inguinal (unknown) (no (unknown) (unknown) Accession Number: (units (unknown) date) [id number] ?? unknown) (unknown) (no (unknown) (unknown) Accession Number: (units (unknown) date) [id number] ?? unknown) (unknown) (no (unknown) (unknown) Accession Number: (units (unknown) date) [id number] ?? unknown) (unknown) (no (unknown) (unknown) Accession Number: (units (unknown) date) [id number] ?? unknown) (unknown) (no (unknown) (unknown) Accession Number: (units (unknown) date) [id number] ?? unknown) (unknown) (no (unknown) (unknown) Acct:[id number] (units (unknown) date) unknown) (unknown) (no (unknown) (unknown) Adrenals:? Normal (units (unknown) date) morphology and unknown) density. (unknown) (no (unknown) (unknown) After the (units (unkn own) date) administration of unknown) intravenous contrast, 5 mm thick sections acquired (unknown) (no (unknown) (unknown) Age/Sex: 81 / F (units (unknown) date) unknown) (unknown) (no (unknown) (unknown) Allergies (units (unkn own) date) unknown) (unknown) (no (unknown) (unknown) Allergy/AdvReac (units (unknown) date) Type Severity unknown) Reaction Status Date / Time (unknown) (no (unknown) (unknown) Along the inferior (units (unknown) date) aspect of the C5 unknown) level, there is a mildly displaced fracture (unknown) (no (unknown) (unknown) [place], [place] (units ( unknown) date) [id number] unknown) (unknown) (no (unknown) (unknown) Anatomic variant (units (unknown) date) noted of the left unknown) V4 segment largely terminating the in the (unknown) (no (unknown) (unknown) Anterior (units (unkno wn) date) circulation:? unknown) Intracranial internal carotid arteries demonstrate (unknown) (no (unknown) (unknown) Antibody Screen (units (unknown) date) Negative unknown) (unknown) (no (unknown) (unknown) Antibody Screen (units (unknown) date) unknown) (unknown) (no (unknown) (unknown) Any quantitative (units (unknown) date) measurements of unknown) stenosis were performed using NASCET criteria.? (unknown) (no (unknown) (unknown) Appearance: (units (un known) date) grossly normal unknown) (unknown) (no (unknown) (unknown) Appendix:? No (units ( unknown) date) findings to suggest unknown) acute appendicitis. (unknown) (no (unknown) (unknown) Approved by: (units (u nknown) date) Jd Baker M.D. unknown) on 01/09/2022 at 15:23 (unknown) (no (unknown) (unknown) Approved by: Doc (units (unknown) date) Carole Holloway on unknown) 01/09/2022 at 17:53 (unknown) (no (unknown) (unknown) Approved by: Boris (units (unknown) date) Sharon Cardona M.D. on unknown) 01/09/2022 at 14:25?? (unknown) (no (unknown) (unknown) Approved by: Boris (units (unknown) date) Sharon Cardona M.D. on unknown) 01/09/2022 at 14:41? (unknown) (no (unknown) (unknown) Approved by: Edna (units (unknown) date) Carole Alan on unknown) 01/09/2022 at 16:49? (unknown) (no (unknown) (unknown) Atrial (units (unkno wn) date) fibrillation unknown) (unknown) (no (unknown) (unknown) Attestation: I (units (unknown) date) personally reviewed unknown) and interpreted this ECG as follows: (unknown) (no (unknown) (unknown) Attestation: (units (u nknown) date) unknown) (unknown) (no (unknown) (unknown) Auscultation: (units ( unknown) date) clear to unknown) auscultation bilaterally (unknown) (no (unknown) (unknown) BRAIN:? (units (unkno wn) date) unknown) (unknown) (no (unknown) (unknown) BUN (7-17) mg/dL (units (unknown) date) unknown) (unknown) (no (unknown) (unknown) BUN 28 H (7-17) (units (unknown) date) mg/dL unknown) (unknown) (no (unknown) (unknown) BUN/Creatinine (units (unknown) date) Ratio (6-22) unknown) (unknown) (no (unknown) (unknown) BUN/Creatinine (units (unknown) date) Ratio 31.5 H (6-22) unknown) (unknown) (no (unknown) (unknown) Back/Spine/Pelvis (units (unknown) date) unknown) (unknown) (no (unknown) (unknown) Basic Metabolic (units (unknown) date) Panel Stat unknown) (unknown) (no (unknown) (unknown) Baso # (Auto) (units ( unknown) date) (0-100) /uL unknown) (unknown) (no (unknown) (unknown) Baso # (Auto) 0 (units (unknown) date) (0-100) /uL unknown) (unknown) (no (unknown) (unknown) Baso % (Auto) (units ( unknown) date) (0-2) % unknown) (unknown) (no (unknown) (unknown) Baso % (Auto) 0.5 (units (unknown) date) (0-2) % unknown) (unknown) (no (unknown) (unknown) Bilateral (units (unkn own) date) calcified pleural unknown) plaquing, aortic atherosclerotic vascular (unknown) (no (unknown) (unknown) Biliary system:? (units (unknown) date) Cholelithiasis unknown) (unknown) (no (unknown) (unknown) Blood Pressure (units (unknown) date) 136/66 01/09/22 unknown) 13:59 (unknown) (no (unknown) (unknown) Blood Pressure (units (unknown) date) 136/66 unknown) (unknown) (no (unknown) (unknown) Blood Pressure (units (unknown) date) 162/70 H unknown) (unknown) (no (unknown) (unknown) Blood Pressure (units (unknown) date) 169/76 H unknown) (unknown) (no (unknown) (unknown) Blood Pressure (units (unknown) date) 172/75 H unknown) (unknown) (no (unknown) (unknown) Blood Pressure (units (unknown) date) 177/74 H unknown) (unknown) (no (unknown) (unknown) Blood Pressure (units (unknown) date) 190/84 H unknown) (unknown) (no (unknown) (unknown) Blood Pressure (units (unknown) date) unknown) (unknown) (no (unknown) (unknown) Blood Type A (units (u nknown) date) Positive unknown) (unknown) (no (unknown) (unknown) Blood Type (units (unk nown) date) unknown) (unknown) (no (unknown) (unknown) Bones and chest (units (unknown) date) wall:? No unknown) suspicious bony lesions.? Overlying soft tissues (unknown) (no (unknown) (unknown) Bones:? No (units (unk nown) date) suspicious bony unknown) lesions.? Visualized cervical spine appears normally (unknown) (no (unknown) (unknown) Brain:? No (units (unk nown) date) intracranial bleeds unknown) or masses.? There is cerebral volume loss for (unknown) (no (unknown) (unknown) Brain:? No midline (units (unknown) date) shift.? No unknown) intracranial bleeds or masses.? Cortes-white matter (unknown) (no (unknown) (unknown) Breast cancer (units ( unknown) date) unknown) (unknown) (no (unknown) (unknown) C5 cervical (units (un known) date) fracture, Hematoma unknown) of neck, Hematoma of right chest wall (unknown) (no (unknown) (unknown) C7, as on series (units (unknown) date) 16 image 33.? There unknown) is moderate to severe central canal (unknown) (no (unknown) (unknown) COMPARISON:? (units (u nknown) date) [facility], unknown) CT, CT ANGIO HEAD AND NECK, 01/09/2022, 15:03. (unknown) (no (unknown) (unknown) COMPARISON:? (units (u nknown) date) [facility], unknown) CT, CT ANGIO HEAD AND NECK, 01/09/2022, 15:03.? (unknown) (no (unknown) (unknown) COMPARISON:? (units (u nknown) date) [facility], unknown) CT, CT HEAD/BRAIN WO CON, 01/09/2022, 15:03.? (unknown) (no (unknown) (unknown) COMPARISON:? None. (units (unknown) date) unknown) (unknown) (no (unknown) (unknown) COVID19 -Nasal (units (unknown) date) RAPID/Pre-Proc Stat unknown) (unknown) (no (unknown) (unknown) CSF spaces:? Basal (units (unknown) date) cisterns are unknown) patent.? No extra-axial fluid collections.? The (unknown) (no (unknown) (unknown) CSF spaces:? (units (u nknown) date) Ventricles are unknown) normal in size and shape.? Basal cisterns are (unknown) (no (unknown) (unknown) CT Scan Report (units (unknown) date) unknown) (unknown) (no (unknown) (unknown) CT angio head and (units (unknown) date) neck Stat unknown) (unknown) (no (unknown) (unknown) CT chest abd pel w (units (unknown) date) con Stat unknown) (unknown) (no (unknown) (unknown) CT (units (unkno wn) date) chest/abd/pelvis: unknown) (unknown) (no (unknown) (unknown) CT head/brain wo (units (unknown) date) con Stat unknown) (unknown) (no (unknown) (unknown) CT scan - head: (units (unknown) date) unknown) (unknown) (no (unknown) (unknown) CTA - brain/neck: (units (unknown) date) unknown) (unknown) (no (unknown) (unknown) Calcium (8.4-10.2) (units (unknown) date) mg/dL unknown) (unknown) (no (unknown) (unknown) Calcium 8.8 (units (un known) date) (8.4-10.2) mg/dL unknown) (unknown) (no (unknown) (unknown) Carbon Dioxide (units (unknown) date) (22-32) mmol/L unknown) (unknown) (no (unknown) (unknown) Carbon Dioxide 34 (units (unknown) date) H (22-32) mmol/L unknown) (unknown) (no (unknown) (unknown) Cardio (units (unkno wn) date) unknown) (unknown) (no (unknown) (unknown) Cardiovascular:? (units (unknown) date) Heart size is unknown) normal.? No evidence of pulmonary embolism, (unknown) (no (unknown) (unknown) Carotid system:? (units (unknown) date) The great vessels unknown) demonstrate a conventional anatomy as they (unknown) (no (unknown) (unknown) Cataracts, (units (unk nown) date) bilateral unknown) (unknown) (no (unknown) (unknown) Cervical Spine: (units (unknown) date) collar present and unknown) cervical spinal tenderness (unknown) (no (unknown) (unknown) Chest Wall and (units (unknown) date) Bones:? Surgical unknown) clips present in the left breast. (unknown) (no (unknown) (unknown) Chest x-ray: (units (u nknown) date) unknown) (unknown) (no (unknown) (unknown) Chest (units (unkno wn) date) unknown) (unknown) (no (unknown) (unknown) Chest: No crepitus (units (unknown) date) and No tenderness unknown) (unknown) (no (unknown) (unknown) Chest: (units (unkno wn) date) unknown) (unknown) (no (unknown) (unknown) Chief complaint: (units (unknown) date) Weakness unknown) (unknown) (no (unknown) (unknown) Chloride (98-107) (units (unknown) date) mmol/L unknown) (unknown) (no (unknown) (unknown) Chloride 96 L (units ( unknown) date) (98-107) mmol/L unknown) (unknown) (no (unknown) (unknown) Clinical (units (unkno wn) date) Impression: unknown) (unknown) (no (unknown) (unknown) Complete Blood (units (unknown) date) Count AUTO DIFF unknown) Stat (unknown) (no (unknown) (unknown) Const (units (unkno wn) date) unknown) (unknown) (no (unknown) (unknown) Coronary artery (units (unknown) date) disease unknown) (unknown) (no (unknown) (unknown) Correlation (units (un known) date) unknown) (unknown) (no (unknown) (unknown) Course (units (unkno wn) date) unknown) (unknown) (no (unknown) (unknown) Creatinine (units (unk nown) date) (0.52-1.04) mg/dL unknown) (unknown) (no (unknown) (unknown) Creatinine 0.89 (units (unknown) date) (0.52-1.04) mg/dL unknown) (unknown) (no (unknown) (unknown) Critical Care Time (units (unknown) date) unknown) (unknown) (no (unknown) (unknown) Critical Care (units ( unknown) date) Time: Yes unknown) (unknown) (no (unknown) (unknown) : 1940 (units (unknown) date) Acct:[id number] unknown) (unknown) (no (unknown) (unknown) : 1940 (units (unknown) date) unknown) (unknown) (no (unknown) (unknown) Date of Service: (units (unknown) date) 01/09/22 unknown) (unknown) (no (unknown) (unknown) Dense (units (unkno wn) date) calcification can unknown) be seen involving the intracranial internal carotid (unknown) (no (unknown) (unknown) Departure (units (unkn own) date) unknown) (unknown) (no (unknown) (unknown) Diabetes (units (unkno wn) date) unknown) (unknown) (no (unknown) (unknown) Dictated by: (units (u nknown) date) Jd Baker M.D. unknown) on 01/09/2022 at 15:19 ? ? (unknown) (no (unknown) (unknown) Dictated by: Boris (units (unknown) date) Sharon Cardona M.D. on unknown) 01/09/2022 at 14:24 ? ? (unknown) (no (unknown) (unknown) Dictated by: Boris (units (unknown) date) Sharon Cardona M.D. on unknown) 01/09/2022 at 14:26 ? ? (unknown) (no (unknown) (unknown) Dictated by: Edna (units (unknown) date) Carole Alan on unknown) 01/09/2022 at 16:38 ? ? (unknown) (no (unknown) (unknown) Discharge Plan (units (unknown) date) unknown) (unknown) (no (unknown) (unknown) Documented By: KF (units (unknown) date) unknown) (unknown) (no (unknown) (unknown) ECG Data (units (unkno wn) date) unknown) (unknown) (no (unknown) (unknown) ED Orders (units (unkn own) date) unknown) (unknown) (no (unknown) (unknown) EKG-12 Lead (units (un known) date) Routine unknown) (unknown) (no (unknown) (unknown) EOM: EOM intact (units (unknown) date) bilaterally unknown) (unknown) (no (unknown) (unknown) ER Physician: (units ( unknown) date) Rick Kelley D.O. unknown) (unknown) (no (unknown) (unknown) Effort + (units (unkno wn) date) Inspection: normal unknown) respiratory effort (unknown) (no (unknown) (unknown) Emergency Report (units (unknown) date) unknown) (unknown) (no (unknown) (unknown) Emergent (units (unkno wn) date) unknown) (unknown) (no (unknown) (unknown) Eos # (Auto) (units (u nknown) date) (0-450) /uL unknown) (unknown) (no (unknown) (unknown) Eos # (Auto) 100 (units (unknown) date) (0-450) /uL unknown) (unknown) (no (unknown) (unknown) Eos % (Auto) (2-4) (units (unknown) date) % unknown) (unknown) (no (unknown) (unknown) Eos % (Auto) 0.8 L (units (unknown) date) (2-4) % unknown) (unknown) (no (unknown) (unknown) Estimated GFR > 60 (units (unknown) date) (>60) mL/min unknown) (unknown) (no (unknown) (unknown) Estimated GFR (units ( unknown) date) (>60) mL/min unknown) (unknown) (no (unknown) (unknown) Exam (units (unkno wn) date) unknown) (unknown) (no (unknown) (unknown) Extrem (units (unkno wn) date) unknown) (unknown) (no (unknown) (unknown) Eyes (units (unkno wn) date) unknown) (unknown) (no (unknown) (unknown) FINDINGS: (units (unkn own) date) unknown) (unknown) (no (unknown) (unknown) FINDINGS:? (units (unk nown) date) unknown) (unknown) (no (unknown) (unknown) Face and sinus: (units (unknown) date) normal facial exam unknown) (unknown) (no (unknown) (unknown) GCS (units (unkno wn) date) unknown) (unknown) (no (unknown) (unknown) GI (units (unkno wn) date) unknown) (unknown) (no (unknown) (unknown) Gastroesophageal (units (unknown) date) reflux disease unknown) (unknown) (no (unknown) (unknown) Gastrointestinal (units (unknown) date) system:? The bowel unknown) is unremarkable with no evidence of bowel (unknown) (no (unknown) (unknown) General (units (unkno wn) date) unknown) (unknown) (no (unknown) (unknown) General: (units (o wn) date) comfortable, No in unknown) distress and No anxious (unknown) (no (unknown) (unknown) General: patient (units (unknown) date) alert, patient unknown) awake and does not move all extremities (unknown) (no (unknown) (unknown) Normal coma scale (units (unknown) date) eye opening: unknown) Spontaneous (unknown) (no (unknown) (unknown) Adebayo coma scale (units (unknown) date) motor response: unknown) Obey commands (unknown) (no (unknown) (unknown) Adebayo coma scale (units (unknown) date) total score: 14 unknown) (unknown) (no (unknown) (unknown) Adebayo coma scale (units (unknown) date) verbal response: unknown) Confused (unknown) (no (unknown) (unknown) Glucose (80-110) (units (unknown) date) mg/dL unknown) (unknown) (no (unknown) (unknown) Glucose 149 H (units ( unknown) date) (80-110) mg/dL unknown) (unknown) (no (unknown) (unknown) HEAD CT (units (o wn) date) ANGIOGRAPHY:? unknown) (unknown) (no (unknown) (unknown) HENMT (units (unkno wn) date) unknown) (unknown) (no (unknown) (unknown) HPI - General (units ( unknown) date) Adult unknown) (unknown) (no (unknown) (unknown) HPI narrative: (units (unknown) date) unknown) (unknown) (no (unknown) (unknown) [facility] who (units (unknown) date) accepts the patient unknown) in transfer. Discussed the need for (unknown) (no (unknown) (unknown) Hct (36-46) % (units ( unknown) date) unknown) (unknown) (no (unknown) (unknown) Hct 28.4 L (36-46) (units (unknown) date) % unknown) (unknown) (no (unknown) (unknown) Head: normal to (units (unknown) date) inspection and unknown) normocephalic (unknown) (no (unknown) (unknown) Her last dose was (units (unknown) date) at noon today. unknown) There is no signs of active bleeding in the (unknown) (no (unknown) (unknown) Hgb (12.0-16.0) (units (unknown) date) g/dL unknown) (unknown) (no (unknown) (unknown) Hgb 9.3 L (units (unkn own) date) (12.0-16.0) g/dL unknown) (unknown) (no (unknown) (unknown) High cholesterol (units (unknown) date) unknown) (unknown) (no (unknown) (unknown) History of Present (units (unknown) date) Illness unknown) (unknown) (no (unknown) (unknown) History of hip (units (unknown) date) replacement unknown) (unknown) (no (unknown) (unknown) History of (units (unk nown) date) hysterectomy unknown) (unknown) (no (unknown) (unknown) Home Medications (units (unknown) date) unknown) (unknown) (no (unknown) (unknown) Hospital, MR, (units ( unknown) date) C-SPINE WITHOUT unknown) CONTRAST, 10/10/2015, 7:42. (unknown) (no (unknown) (unknown) Hypertension (units (u nknown) date) unknown) (unknown) (no (unknown) (unknown) IMPRESSION: (units (un known) date) unknown) (unknown) (no (unknown) (unknown) IMPRESSION:? No (units (unknown) date) acute intracranial unknown) hemorrhage is seen.? (unknown) (no (unknown) (unknown) IMPRESSION:? There (units (unknown) date) is a mildly unknown) displaced cervical spine fracture involving the (unknown) (no (unknown) (unknown) IMPRESSION:? (units (u nknown) date) unknown) (unknown) (no (unknown) (unknown) INDICATIONS:? C5Fx (units (unknown) date) with UE weakness unknown) (unknown) (no (unknown) (unknown) INDICATIONS:? (units ( unknown) date) Right upper unknown) quadrant bruising after fall (unknown) (no (unknown) (unknown) INDICATIONS:? fall (units (unknown) date) on thinners with unknown) neck hematoma (unknown) (no (unknown) (unknown) INDICATIONS:? fall (units (unknown) date) on thinners unknown) (unknown) (no (unknown) (unknown) INR (0.9-1.3) (units ( unknown) date) unknown) (unknown) (no (unknown) (unknown) INR 1.9 H (units (unkn own) date) (0.9-1.3) unknown) (unknown) (no (unknown) (unknown) If it would be (units (unknown) date) helpful for unknown) clinical management decision making, please consider (unknown) (no (unknown) (unknown) Image quality:? (units (unknown) date) Adequate for unknown) evaluation. (unknown) (no (unknown) (unknown) Image quality:? (units (unknown) date) Excellent.? unknown) (unknown) (no (unknown) (unknown) Imaging Data (units (u nknown) date) unknown) (unknown) (no (unknown) (unknown) Initial Vital (units ( unknown) date) Signs unknown) (unknown) (no (unknown) (unknown) Initial Vital (units ( unknown) date) Signs: unknown) (unknown) (no (unknown) (unknown) Inspection: normal (units (unknown) date) to inspection and unknown) non-distended (unknown) (no (unknown) (unknown) Interpretation: (units (unknown) date) unknown) (unknown) (no (unknown) (unknown) [facility] (units (unknown) date) [address] [place] [address] unknown) [place] [address] (unknown) (no (unknown) (unknown) [facility] (units (unknown) date) unknown) (unknown) (no (unknown) (unknown) [facility] (units (unkno wn) date) unknown) (unknown) (no (unknown) (unknown) Lab Data (units (unkno wn) date) unknown) (unknown) (no (unknown) (unknown) Lab Results (units (un known) date) unknown) (unknown) (no (unknown) (unknown) Lab results (units (un known) date) reviewed: Yes I unknown) reviewed the patient's lab results. (unknown) (no (unknown) (unknown) Labs: (units (unkno wn) date) unknown) (unknown) (no (unknown) (unknown) Large area of (units ( unknown) date) ecchymosis on the unknown) right side of her neck. Also has a large area (unknown) (no (unknown) (unknown) Large area of (units ( unknown) date) ecchymosis specific unknown) on the right side of her anterior neck. There (unknown) (no (unknown) (unknown) Last Admin: (units (un known) date) 01/09/22 15:27 unknown) Dose: 125 mls/hr (unknown) (no (unknown) (unknown) Liver:? Normal in (units (unknown) date) size and unknown) attenuation. No contour deformity present. (unknown) (no (unknown) (unknown) Loc: ED (units (unkno wn) date) unknown) (unknown) (no (unknown) (unknown) Lungs and pleura:? (units (unknown) date) Small right pleural unknown) effusion.? Mild nonspecific right basilar (unknown) (no (unknown) (unknown) Lungs and pleural (units (unknown) date) spaces:? Moderate unknown) right pleural effusion present.? Calcified (unknown) (no (unknown) (unknown) Lymph # (Auto) (units (unknown) date) (9432-6388) /uL unknown) (unknown) (no (unknown) (unknown) Lymph # (Auto) 800 (units (unknown) date) L (4458-3828) /uL unknown) (unknown) (no (unknown) (unknown) Lymph % (Auto) (units (unknown) date) (25-40) % unknown) (unknown) (no (unknown) (unknown) Lymph % (Auto) (units (unknown) date) 10.5 L (25-40) % unknown) (unknown) (no (unknown) (unknown) Lymph nodes:? No (units (unknown) date) mediastinal, hilar unknown) or axillary adenopathy. (unknown) (no (unknown) (unknown) Lymph nodes:? No (units (unknown) date) mesenteric or unknown) retroperitoneal adenopathy. (unknown) (no (unknown) (unknown) MCH (26-34) PG (units (unknown) date) unknown) (unknown) (no (unknown) (unknown) MCH 27.3 (26-34) (units (unknown) date) PG unknown) (unknown) (no (unknown) (unknown) MCHC (30-36) % (units (unknown) date) unknown) (unknown) (no (unknown) (unknown) MCHC 32.6 (30-36) (units (unknown) date) % unknown) (unknown) (no (unknown) (unknown) MCV (80-100) fL (units (unknown) date) unknown) (unknown) (no (unknown) (unknown) MCV 83.8 (80-100) (units (unknown) date) fL unknown) (unknown) (no (unknown) (unknown) MDM Narrative (units ( unknown) date) unknown) (unknown) (no (unknown) (unknown) MR cervical spine (units (unknown) date) wo con Stat unknown) (unknown) (no (unknown) (unknown) MR#: [id number] (units (unknown) date) unknown) (unknown) (no (unknown) (unknown) MRI cervical: (units ( unknown) date) unknown) (unknown) (no (unknown) (unknown) Magnetic Resonance (units (unknown) date) Report unknown) (unknown) (no (unknown) (unknown) Mediastinum:? (units ( unknown) date) Cardiac silhouette unknown) is mildly enlarged. (unknown) (no (unknown) (unknown) Mediastinum:? (units ( unknown) date) Unremarkable.? No unknown) hiatal hernia.? Thyroid within normal limits. (unknown) (no (unknown) (unknown) Medical Decision (units (unknown) date) Making unknown) (unknown) (no (unknown) (unknown) Medical History (units (unknown) date) (Reviewed 01/09/22 unknown) @ 17:43 by Rick Kelley DO) (unknown) (no (unknown) (unknown) Medical Records (units (unknown) date) unknown) (unknown) (no (unknown) (unknown) Medical decision (units (unknown) date) making narrative: unknown) (unknown) (no (unknown) (unknown) Medical records (units (unknown) date) reviewed: Yes I unknown) reviewed the patient's medical records. (unknown) (no (unknown) (unknown) Medication (units (unk nown) date) Instructions unknown) Recorded Confirmed (unknown) (no (unknown) (unknown) Medication (units (unk nown) date) Instructions unknown) Recorded (unknown) (no (unknown) (unknown) Mode of arrival: (units (unknown) date) EMS unknown) (unknown) (no (unknown) (unknown) Moderate right (units (unknown) date) pleural effusion unknown) with right basilar atelectasis or consolidation (unknown) (no (unknown) (unknown) Moderate to severe (units (unknown) date) cervical spine unknown) degenerative change can be seen, with (unknown) (no (unknown) (unknown) Harper # (Auto) (units ( unknown) date) (0-900) /uL unknown) (unknown) (no (unknown) (unknown) Harper # (Auto) 700 (units (unknown) date) (0-900) /uL unknown) (unknown) (no (unknown) (unknown) Harper % (Auto) (units ( unknown) date) (3-14) % unknown) (unknown) (no (unknown) (unknown) Harper % (Auto) 9.5 (units (unknown) date) (3-14) % unknown) (unknown) (no (unknown) (unknown) Mouth: oral (units (un known) date) mucosae normal unknown) (unknown) (no (unknown) (unknown) Musculoskeletal:? (units (unknown) date) Normal bone unknown) mineralization.? No acute fractures.? Right upper (unknown) (no (unknown) (unknown) NECK CT (units (unkno wn) date) ANGIOGRAPHY:? unknown) (unknown) (no (unknown) (unknown) Neck (units (unkno wn) date) unknown) (unknown) (no (unknown) (unknown) Neuro (units (unkno wn) date) unknown) (unknown) (no (unknown) (unknown) Neut # (Auto) (units ( unknown) date) (0949-7404) /uL unknown) (unknown) (no (unknown) (unknown) Neut # (Auto) 5700 (units (unknown) date) (9333-6769) /uL unknown) (unknown) (no (unknown) (unknown) Neut % (Auto) (units ( unknown) date) (50-75) % unknown) (unknown) (no (unknown) (unknown) Neut % (Auto) 78.7 (units (unknown) date) H (50-75) % unknown) (unknown) (no (unknown) (unknown) No Action (units (unkn own) date) unknown) (unknown) (no (unknown) (unknown) No acute (units (unkno wn) date) intracranial unknown) process is seen.? (unknown) (no (unknown) (unknown) No definite cord (units (unknown) date) signal abnormality. unknown) (unknown) (no (unknown) (unknown) No gross (units (unkno wn) date) deformities. unknown) (unknown) (no (unknown) (unknown) No problems (units (un known) date) breathing. A unknown) cervical collar was placed secondary to midline (unknown) (no (unknown) (unknown) No (units (unkno wn) date) unknown) (unknown) (no (unknown) (unknown) Nodular (units (unkno wn) date) unknown) (unknown) (no (unknown) (unknown) Noncontrast 4.5 mm (units (unknown) date) thick angled axial unknown) sections acquired from the foramen magnum (unknown) (no (unknown) (unknown) Noncontrast images (units (unknown) date) were performed unknown) earlier in the day and not repeated.? ? After (unknown) (no (unknown) (unknown) Noncontrast (units (un known) date) sagittal T1 spin unknown) echo and T2 fast spin echo, sagittal STIR, (unknown) (no (unknown) (unknown) Normal axis (units (un known) date) unknown) (unknown) (no (unknown) (unknown) Note: Case (units (unk nown) date) discussed by unknown) telephone with Dr. Kelley at 2:32 p.mAdrian [place] time on (unknown) (no (unknown) (unknown) Occasional PVC (units (unknown) date) unknown) (unknown) (no (unknown) (unknown) January 09, (units (un known) date) unknown) (unknown) (no (unknown) (unknown) Orbits appear (units ( unknown) date) normal.? unknown) (unknown) (no (unknown) (unknown) Ordered: (units (unkno wn) date) unknown) (unknown) (no (unknown) (unknown) Ordering Provider: (units (unknown) date) Rick Kelley D.O. 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, with moderate (unknown) (no (unknown) (unknown) Osteoarthritis (units (unknown) date) unknown) (unknown) (no (unknown) (unknown) Other: (units (unkno wn) date) unknown) (unknown) (no (unknown) (unknown) Oxygen Delivery (units (unknown) date) Method 01/09/22 unknown) 13:59 (unknown) (no (unknown) (unknown) Oxygen Delivery (units (unknown) date) Method Room Air unknown) Room Air Room Air (unknown) (no (unknown) (unknown) Oxygen Delivery (units (unknown) date) Method Room Air unknown) Room Air (unknown) (no (unknown) (unknown) Oxygen Delivery (units (unknown) date) Method Room Air unknown) (unknown) (no (unknown) (unknown) Oxygen Delivery (units (unknown) date) Method unknown) (unknown) (no (unknown) (unknown) PROCEDURE:? CT (units (unknown) date) ANGIO HEAD AND NECK unknown) (unknown) (no (unknown) (unknown) PROCEDURE:? CT (units (unknown) date) CHEST ABD PEL W CON unknown) (unknown) (no (unknown) (unknown) PROCEDURE:? CT (units (unknown) date) HEAD/BRAIN WO CON unknown) (unknown) (no (unknown) (unknown) PROCEDURE:? MR (units (unknown) date) CERVICAL SPINE WO unknown) CON (unknown) (no (unknown) (unknown) PROCEDURE:? XR (units (unknown) date) CHEST 1V unknown) (unknown) (no (unknown) (unknown) PT (10.1-12.7) (units (unknown) date) SECONDS unknown) (unknown) (no (unknown) (unknown) PT 22.5 H (units (unkn own) date) (10.1-12.7) SECONDS unknown) (unknown) (no (unknown) (unknown) Palpation: soft (units (unknown) date) and tender (Over unknown) the large contusion of her right lower (unknown) (no (unknown) (unknown) Pancreas:? 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 She knows unknown) that she is in hospital but thinks that she (unknown) (no (unknown) (unknown) Patient: (units (unkno wn) date) Kamryn Danielle unknown) MR#: M (unknown) (no (unknown) (unknown) Patient: (units (unkno wn) date) Kamryn Danielle [place] unknown) (unknown) (no (unknown) (unknown) Peritoneal spaces: (units (unknown) date) ? No free air. No unknown) free fluid.? (unknown) (no (unknown) (unknown) Plt Count (units (unkn own) date) (150-400) X103/uL unknown) (unknown) (no (unknown) (unknown) Plt Count 194 (units ( unknown) date) (150-400) X103/uL unknown) (unknown) (no (unknown) (unknown) Posterior (units (unkn own) date) circulation:? The unknown) distal left T4 segment largely terminates in the (unknown) (no (unknown) (unknown) Posterior (units (unkno wn) date) circulation:? The unknown) origins of the vertebral arteries both appear widely (unknown) (no (unknown) (unknown) Potassium (units (unkn own) date) (3.4-5.1) mmol/L unknown) (unknown) (no (unknown) (unknown) Potassium 3.2 L (units (unknown) date) (3.4-5.1) mmol/L unknown) (unknown) (no (unknown) (unknown) Prescriptions: (units (unknown) date) unknown) (unknown) (no (unknown) (unknown) Previous Rx's (units ( unknown) date) unknown) (unknown) (no (unknown) (unknown) Procedure: CT (units ( unknown) date) angio head and neck unknown) (unknown) (no (unknown) (unknown) Procedure: CT (units ( unknown) date) chest abd pel w con unknown) (unknown) (no (unknown) (unknown) Procedure: CT (units ( unknown) date) head/brain wo con unknown) (unknown) (no (unknown) (unknown) Procedure: MR (units ( unknown) date) cervical spine wo unknown) con (unknown) (no (unknown) (unknown) Procedure: XR (units ( unknown) date) chest 1V unknown) (unknown) (no (unknown) (unknown) Prothrombin Time (units (unknown) date) INR Stat unknown) (unknown) (no (unknown) (unknown) Psych (units (unkno wn) date) unknown) (unknown) (no (unknown) (unknown) Pulse Oximetry 96 (units (unknown) date) 96 unknown) (unknown) (no (unknown) (unknown) Pulse Oximetry 96 (units (unknown) date) 97 unknown) (unknown) (no (unknown) (unknown) Pulse Oximetry 97 (units (unknown) date) 96 unknown) (unknown) (no (unknown) (unknown) Pulse Oximetry 97 (units (unknown) date) 98 unknown) (unknown) (no (unknown) (unknown) Pulse Oximetry 97 (units (unknown) date) unknown) (unknown) (no (unknown) (unknown) Pulse Oximetry 98 (units (unknown) date) 01/09/22 13:59 unknown) (unknown) (no (unknown) (unknown) Pulse Oximetry 98 (units (unknown) date) 97 97 unknown) (unknown) (no (unknown) (unknown) Pulse Oximetry 98 (units (unknown) date) 98 unknown) (unknown) (no (unknown) (unknown) Pulse Rate 87 87 (units (unknown) date) unknown) (unknown) (no (unknown) (unknown) Pulse Rate 87 92 H (units (unknown) date) unknown) (unknown) (no (unknown) (unknown) Pulse Rate 88 (units ( unknown) date) 01/09/22 13:59 unknown) (unknown) (no (unknown) (unknown) Pulse Rate 88 87 (units (unknown) date) 88 unknown) (unknown) (no (unknown) (unknown) Pulse Rate 88 91 H (units (unknown) date) unknown) (unknown) (no (unknown) (unknown) Pulse Rate 89 91 H (units (unknown) date) unknown) (unknown) (no (unknown) (unknown) Pulse Rate 91 H 92 (units (unknown) date) H unknown) (unknown) (no (unknown) (unknown) Pulse Rate 92 H 88 (units (unknown) date) unknown) (unknown) (no (unknown) (unknown) Pupils: PERRL (units ( unknown) date) unknown) (unknown) (no (unknown) (unknown) RBC (4.0-5.2) (units ( unknown) date) X106/uL unknown) (unknown) (no (unknown) (unknown) RBC 3.39 L (units (unk nown) date) (4.0-5.2) X106/uL unknown) (unknown) (no (unknown) (unknown) RDW (11.6-14.8) % (units (unknown) date) unknown) (unknown) (no (unknown) (unknown) RDW 19.6 H (units (unk nown) date) (11.6-14.8) % unknown) (unknown) (no (unknown) (unknown) ROS Unobtainable: (units (unknown) date) All systems unknown) reviewed + are unremarkable except as noted in HPI (unknown) (no (unknown) (unknown) Radiologist's (units ( unknown) date) Impression: unknown) (unknown) (no (unknown) (unknown) Rate: regular rate (units (unknown) date) unknown) (unknown) (no (unknown) (unknown) Referrals: (units (unk nown) date) unknown) (unknown) (no (unknown) (unknown) Related Data (units (u nknown) date) unknown) (unknown) (no (unknown) (unknown) 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 (unknown) (no (unknown) (unknown) Reproductive (units (u nknown) date) system:? unknown) Unremarkable as visualized. (unknown) (no (unknown) (unknown) Resp (units (unkno wn) date) unknown) (unknown) (no (unknown) (unknown) Respiratory Rate (units (unknown) date) 13 17 unknown) (unknown) (no (unknown) (unknown) Respiratory Rate (units (unknown) date) 18 01/09/22 13:59 unknown) (unknown) (no (unknown) (unknown) Respiratory Rate (units (unknown) date) 18 12 unknown) (unknown) (no (unknown) (unknown) Respiratory Rate (units (unknown) date) 18 17 20 unknown) (unknown) (no (unknown) (unknown) Respiratory Rate (units (unknown) date) 18 18 unknown) (unknown) (no (unknown) (unknown) Respiratory Rate (units (unknown) date) 18 21 unknown) (unknown) (no (unknown) (unknown) Respiratory Rate (units (unknown) date) 18 31 H unknown) (unknown) (no (unknown) (unknown) Respiratory Rate (units (unknown) date) 30 H 22 unknown) (unknown) (no (unknown) (unknown) Result diagrams: (units (unknown) date) unknown) (unknown) (no (unknown) (unknown) Review of Systems (units (unknown) date) unknown) (unknown) (no (unknown) (unknown) Rhythm: abnormal (units (unknown) date) rhythm unknown) (unknown) (no (unknown) (unknown) Right hip (units (unkn own) date) unknown) (unknown) (no (unknown) (unknown) Right soft tissue (units (unknown) date) neck hematoma with unknown) mild surrounding inflammatory change. (unknown) (no (unknown) (unknown) Right upper (units (un known) date) quadrant anterior unknown) abdominal wall bruising and soft tissue swelling (unknown) (no (unknown) (unknown) Jefry Deleon MD (units (unknown) date) [Primary Care unknown) Provider] (unknown) (no (unknown) (unknown) SARS-CoV-2 (PCR) (units (unknown) date) (Negative) unknown) (unknown) (no (unknown) (unknown) SARS-CoV-2 (PCR) (units (unknown) date) Negative (Negative) unknown) (unknown) (no (unknown) (unknown) SWELLING (units (unkno wn) date) unknown) (unknown) (no (unknown) (unknown) Scores (units (unkno wn) date) unknown) (unknown) (no (unknown) (unknown) Severe (units (unkno wn) date) degenerative unknown) changes are present throughout the cervical spine including (unknown) (no (unknown) (unknown) Severe (units (unkno wn) date) unknown) (unknown) (no (unknown) (unknown) She is on blood (units (unknown) date) thinner secondary unknown) to atrial fibrillation. She had a CT scan of (unknown) (no (unknown) (unknown) Signed By: (units (unk nown) date) unknown) (unknown) (no (unknown) (unknown) Signed (units (unkno wn) date) unknown) (unknown) (no (unknown) (unknown) Since that time (units (unknown) date) she has had unknown) multiple falls. She states she is not necessarily (unknown) (no (unknown) (unknown) Sinuses:? Sinuses (units (unknown) date) and mastoids are unknown) clear.? (unknown) (no (unknown) (unknown) Sinuses:? (units (unkn own) date) Visualized sinuses unknown) and mastoids are clear.? (unknown) (no (unknown) (unknown) Skin (units (unkno wn) date) unknown) (unknown) (no (unknown) (unknown) Skull and face:? (units (unknown) date) Calvarium and unknown) facial bones appear intact, without suspicious (unknown) (no (unknown) (unknown) Skull and face:? (units (unknown) date) Calvarium and unknown) visualized facial bones appear intact, without (unknown) (no (unknown) (unknown) Social History (units (unknown) date) (Reviewed 01/09/22 unknown) @ 17:43 by Rick Kelley DO) (unknown) (no (unknown) (unknown) Sodium (137-145) (units (unknown) date) mmol/L unknown) (unknown) (no (unknown) (unknown) Sodium 138 (units (unk nown) date) (137-145) mmol/L unknown) (unknown) (no (unknown) (unknown) Sodium Chloride (units (unknown) date) (Normal Saline unknown) 0.9%) 1,000 mls @ 125 mls/hr IV CONT BISHOP (unknown) (no (unknown) (unknown) Soft tissues:? (units (unknown) date) Focal hematoma with unknown) soft tissue swelling can be seen involving (unknown) (no (unknown) (unknown) Source: patient (units (unknown) date) and EMS unknown) (unknown) (no (unknown) (unknown) Speech: speech (units (unknown) date) normal unknown) (unknown) (no (unknown) (unknown) Spleen:? Normal in (units (unknown) date) size and density. unknown) (unknown) (no (unknown) (unknown) Stated complaint: (units (unknown) date) Multiple falls unknown) (unknown) (no (unknown) (unknown) Surgical History (units (unknown) date) (Reviewed 01/09/22 unknown) @ 17:43 by Rick Kelley DO) (unknown) (no (unknown) (unknown) Surgical changes (units (unknown) date) and devices:? Left unknown) axillary metal clips.? (unknown) (no (unknown) (unknown) TECHNIQUE:? One (units (unknown) date) view of the chest unknown) was acquired.? (unknown) (no (unknown) (unknown) TECHNIQUE:? (units (un known) date) unknown) (unknown) (no (unknown) (unknown) Temperature 97.6 F (units (unknown) date) 97.5 F L unknown) (unknown) (no (unknown) (unknown) Temperature 98 F (units (unknown) date) 01/09/22 13:59 unknown) (unknown) (no (unknown) (unknown) Temperature 98 F (units (unknown) date) unknown) (unknown) (no (unknown) (unknown) Temperature (units (un known) date) unknown) (unknown) (no (unknown) (unknown) The head CT and (units (unknown) date) cervical spine CT unknown) at that time is reported as no acute (unknown) (no (unknown) (unknown) The high (units (unkno wn) date) probability of a unknown) clinically significant, sudden or life threatening (unknown) (no (unknown) (unknown) The more superior (units (unknown) date) extracranial unknown) portions of both vertebral arteries also (unknown) (no (unknown) (unknown) There are large (units (unknown) date) posterior disc unknown) osteophyte complexes throughout the cervical (unknown) (no (unknown) (unknown) There is an acute (units (unknown) date) compression unknown) deformity at C5 which likely extends into the (unknown) (no (unknown) (unknown) There is diffuse (units (unknown) date) edema within the unknown) anterior and posterior paraspinous (unknown) (no (unknown) (unknown) These imaging (units ( unknown) date) 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 ranjith Kelley at 4:48 p.m. on January 09, 2022. (unknown) (no (unknown) (unknown) Time Seen by (units (u nknown) date) Provider: 01/09/22 unknown) 14:06 (unknown) (no (unknown) (unknown) Total Critical (units (unknown) date) Care Time: 40 unknown) (unknown) (no (unknown) (unknown) Type and Screen (units (unknown) date) Stat unknown) (unknown) (no (unknown) (unknown) Urinary (units (unkno wn) date) incontinence unknown) (unknown) (no (unknown) (unknown) Urinary system:? (units (unknown) date) Normal renal size unknown) and attenuation. No renal calculi, (unknown) (no (unknown) (unknown) Vasculature:? The (units (unknown) date) IVC, aorta and unknown) iliac vasculature are unremarkable. (unknown) (no (unknown) (unknown) Ventricular rate (units (unknown) date) 86 unknown) (unknown) (no (unknown) (unknown) Vital Signs - 8 hr (units (unknown) date) unknown) (unknown) (no (unknown) (unknown) Vital Signs (units (un known) date) unknown) (unknown) (no (unknown) (unknown) Vital signs: (units (u nknown) date) unknown) (unknown) (no (unknown) (unknown) WBC (4.5-11.0) (units (unknown) date) X103/uL unknown) (unknown) (no (unknown) (unknown) WBC 7.2 (4.5-11.0) (units (unknown) date) X103/uL unknown) (unknown) (no (unknown) (unknown) Which showed no (units (unknown) date) acute pathology. unknown) Discussed the case with Dr. Saint Maldonado with (unknown) (no (unknown) (unknown) Who was able to (units (unknown) date) review the ED visit unknown) from 2 days ago at the outside facility. (unknown) (no (unknown) (unknown) XR chest 1V Stat (units (unknown) date) unknown) (unknown) (no (unknown) (unknown) XRay Report (units (un known) date) unknown) (unknown) (no (unknown) (unknown) [Embedded Image (units (unknown) date) Not Available] unknown) (unknown) (no (unknown) (unknown) [x] Data Review (units (unknown) date) and interpretation unknown) (unknown) (no (unknown) (unknown) [x] Documentation (units (unknown) date) unknown) (unknown) (no (unknown) (unknown) [x] Medication (units (unknown) date) orders and unknown) management (unknown) (no (unknown) (unknown) [x] Patient (units (un known) date) assessment and unknown) monitoring of vital signs (unknown) (no (unknown) (unknown) a (units (unkno wn) date) unknown) (unknown) (no (unknown) (unknown) acquired from (units ( unknown) date) unknown) (unknown) (no (unknown) (unknown) acquired (units (unkno wn) date) unknown) (unknown) (no (unknown) (unknown) acquired. (units (unkn own) date) unknown) (unknown) (no (unknown) (unknown) administration of (units (unknown) date) intravenous unknown) contrast, 1 mm thick sections acquired from the (unknown) (no (unknown) (unknown) age, with (units (unkn own) date) unknown) (unknown) (no (unknown) (unknown) agreement. (units (unk nown) date) unknown) (unknown) (no (unknown) (unknown) aligned.? (units (unkn own) date) unknown) (unknown) (no (unknown) (unknown) anastomosis.? Auto (units (unknown) date) text a CT aorta unknown) (unknown) (no (unknown) (unknown) and below (units (unkn own) date) unknown) (unknown) (no (unknown) (unknown) and courses.? The (units (unknown) date) bifurcation regions unknown) demonstrate generalized atherosclerotic (unknown) (no (unknown) (unknown) and neck (units (unkno wn) date) separately. For unknown) radiation dose reduction, the following was used:? (unknown) (no (unknown) (unknown) and (units (unkno wn) date) unknown) (unknown) (no (unknown) (unknown) and/or volume (units ( unknown) date) rendering reformats unknown) were acquired of the central intracranial (unknown) (no (unknown) (unknown) aneurysm or (units (un known) date) dissection.? Dense unknown) atherosclerotic vascular calcification noted (unknown) (no (unknown) (unknown) aneurysms are (units ( unknown) date) seen.? unknown) (unknown) (no (unknown) (unknown) anterior cerebral (units (unknown) date) arteries is normal unknown) and symmetric.? The flow within the middle (unknown) (no (unknown) (unknown) aortic arch (units (un known) date) unknown) (unknown) (no (unknown) (unknown) aortic arch. (units (u nknown) date) unknown) (unknown) (no (unknown) (unknown) aortic (units (unkno wn) date) unknown) (unknown) (no (unknown) (unknown) appear (units (unkno wn) date) unknown) (unknown) (no (unknown) (unknown) appearing (units (unkn own) date) unknown) (unknown) (no (unknown) (unknown) appears intact.? 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 (unknown) (no (unknown) (unknown) arise from (units (unk nown) date) unknown) (unknown) (no (unknown) (unknown) arrival here in (units (unknown) date) the emergency unknown) department. She is having decreased sensation in (unknown) (no (unknown) (unknown) arteries is normal (units (unknown) date) and symmetric.? The unknown) anterior communicating artery is seen.? (unknown) (no (unknown) (unknown) arteries, (units (unkn own) date) unknown) (unknown) (no (unknown) (unknown) arteries. (units (unkn own) date) unknown) (unknown) (no (unknown) (unknown) aspect of the C5 (units (unknown) date) vertebral body. unknown) (unknown) (no (unknown) (unknown) at C5-C6, as on (units (unknown) date) series 14, images unknown) 45-46. (unknown) (no (unknown) (unknown) atherosclerotic (units (unknown) date) calcification, with unknown) up to 70% narrowing.? There is a normal (unknown) (no (unknown) (unknown) atherosclerotic (units (unknown) date) unknown) (unknown) (no (unknown) (unknown) attention, (units (unk nown) date) intervention and unknown) personal management. The aggregate critical care (unknown) (no (unknown) (unknown) automated (units (unkn own) date) unknown) (unknown) (no (unknown) (unknown) available for my (units (unknown) date) review. She was unknown) subsequently discharged from the hospital. (unknown) (no (unknown) (unknown) axial (units (unkno wn) date) unknown) (unknown) (no (unknown) (unknown) basilar artery.? (units (unknown) date) Flow within the unknown) posterior cerebral arteries is normal and (unknown) (no (unknown) (unknown) bilateral (units (unkn own) date) unknown) (unknown) (no (unknown) (unknown) body (units (unkno wn) date) unknown) (unknown) (no (unknown) (unknown) bridging (units (unkno wn) date) osteophytes.? The unknown) disc spaces are relatively well preserved.? There is (unknown) (no (unknown) (unknown) broad-based (units (un known) date) unknown) (unknown) (no (unknown) (unknown) bruising on her (units (unknown) date) shoulder. CT scan unknown) of the chest abdomen pelvis was ordered. (unknown) (no (unknown) (unknown) calcification and (units (unknown) date) irregularity, with unknown) 80-90% narrowing seen both proximal (unknown) (no (unknown) (unknown) calcification, (units (unknown) date) with 60-70% unknown) narrowing seen on each side.? The flow within the (unknown) (no (unknown) (unknown) calcification, (units (unknown) date) unknown) (unknown) (no (unknown) (unknown) caliber (units (unkno wn) date) unknown) (unknown) (no (unknown) (unknown) canal stenosis (units (unknown) date) with deformity of unknown) the cord.? The cord measures 4 mm at its (unknown) (no (unknown) (unknown) carotid arteries (units (unknown) date) appear patent.? The unknown) common carotid arteries demonstrate normal (unknown) (no (unknown) (unknown) central canal (units ( unknown) date) narrowing at C5-C6. unknown) (unknown) (no (unknown) (unknown) cerebral (units (unkno wn) date) unknown) (unknown) (no (unknown) (unknown) cervical spinal (units (unknown) date) tenderness by EMS. unknown) She was not on a backboard upon arrival. (unknown) (no (unknown) (unknown) cervical spine.? (units (unknown) date) unknown) (unknown) (no (unknown) (unknown) change. (units (unkno wn) date) unknown) (unknown) (no (unknown) (unknown) chest wall (units (unk nown) date) calcifications or unknown) pulmonary nodules or objects external to the (unknown) (no (unknown) (unknown) clopidogrel 75 mg (units (unknown) date) tablet (Plavix) 75 unknown) mg PO QDAY ##0 08/06/16 (unknown) (no (unknown) (unknown) clopidogrel (units (un known) date) [Plavix] 75 MG unknown) tablet (unknown) (no (unknown) (unknown) codeine [CODEINE] (units (unknown) date) Allergy Severe ORAL unknown) Verified 01/09/22 14:22 (unknown) (no (unknown) (unknown) common (units (unkno wn) date) unknown) (unknown) (no (unknown) (unknown) complaining of (units (unknown) date) neck discomfort. It unknown) was reported she is unsteady on her feet. (unknown) (no (unknown) (unknown) congested. (units (unk nown) date) unknown) (unknown) (no (unknown) (unknown) consistent with a (units (unknown) date) 3 column fracture.? unknown) This is considered an unstable fracture.? (unknown) (no (unknown) (unknown) contraindication). (units (unknown) date) ? unknown) (unknown) (no (unknown) (unknown) days. She (units (unkn own) date) describes unknown) increasing weakness in her upper and lower extremity. 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 (units (unk nown) date) unknown) (unknown) (no (unknown) (unknown) disc bulges.? (units ( unknown) date) These findings are unknown) most severe at C4-5, C5-6, C6-7, and C7-T1.? (unknown) (no (unknown) (unknown) dislocation. (units (u nknown) date) unknown) (unknown) (no (unknown) (unknown) elements do not (units (unknown) date) appear involved. unknown) (unknown) (no (unknown) (unknown) exposure control, (units (unknown) date) adjustment of mA unknown) and/or kV according to patient size.? (unknown) (no (unknown) (unknown) extra-axial fluid (units (unknown) date) collections.? unknown) (unknown) (no (unknown) (unknown) feel called on all (units (unknown) date) 4 extremities and unknown) this is appropriate. She does have (unknown) (no (unknown) (unknown) following (units (unkn own) date) unknown) (unknown) (no (unknown) (unknown) for a 3 column (units (unknown) date) unstable fracture. unknown) Patient has been in a cervical collar since (unknown) (no (unknown) (unknown) foraminal oblique (units (unknown) date) unknown) (unknown) (no (unknown) (unknown) from the (units (unkno wn) date) unknown) (unknown) (no (unknown) (unknown) frontal (units (unkno wn) date) unknown) (unknown) (no (unknown) (unknown) glimepiride 2 mg (units (unknown) date) tablet (Amaryl) 2 unknown) mg PO BID ##0 08/20/16 (unknown) (no (unknown) (unknown) glimepiride (units (un known) date) [Amaryl] 2 MG unknown) tablet (unknown) (no (unknown) (unknown) height loss.? No (units (unknown) date) definite unknown) retropulsed fracture fragments.? No other fracture or (unknown) (no (unknown) (unknown) her head and also (units (unknown) date) her neck which unknown) reported is unremarkable. These reports were (unknown) (no (unknown) (unknown) her right leg off (units (unknown) date) the bed just a very unknown) small amount. Patient is on Eliquis. (unknown) (no (unknown) (unknown) hernias. (units (unkno wn) date) unknown) (unknown) (no (unknown) (unknown) hydrocodone 5 (units ( unknown) date) mg-acetaminophen unknown) 325 1 tab PO Q4HP PRN #30 tabs 08/21/16 (unknown) (no (unknown) (unknown) hydrocodone-acetam (units (unknown) date) inophen [[place]] 5 unknown) MG/325 MG tablet (unknown) (no (unknown) (unknown) hydronephrosis, or (units (unknown) date) unknown) (unknown) (no (unknown) (unknown) hyperostosis (units (u nknown) date) unknown) (unknown) (no (unknown) (unknown) ileocolic (units (unkn own) date) unknown) (unknown) (no (unknown) (unknown) in her upper and (units (unknown) date) lower extremities. unknown) She is not have any problems swallowing. (unknown) (no (unknown) (unknown) infarction seen, (units (unknown) date) with focal volume unknown) loss and encephalomalacia.? There is (unknown) (no (unknown) (unknown) inferior (units (unkno wn) date) unknown) (unknown) (no (unknown) (unknown) instrumentation. (units (unknown) date) unknown) (unknown) (no (unknown) (unknown) interface (units (unkn own) date) unknown) (unknown) (no (unknown) (unknown) internal carotid (units (unknown) date) artery unknown) atherosclerosis.? (unknown) (no (unknown) (unknown) internal carotid (units (unknown) date) unknown) (unknown) (no (unknown) (unknown) intervertebral (units (unknown) date) disc space unknown) narrowing, disc desiccation and height loss, and (unknown) (no (unknown) (unknown) intracranial (units (u nknown) date) unknown) (unknown) (no (unknown) (unknown) involving the (units ( unknown) date) unknown) (unknown) (no (unknown) (unknown) is also made with (units (unknown) date) the prior outside unknown) cervical spine CT examinations 01/07/2022 (unknown) (no (unknown) (unknown) is in the hospital (units (unknown) date) that she was at a unknown) couple days ago. She thinks that it is (unknown) (no (unknown) (unknown) is no pulsatile (units (unknown) date) lesions. No unknown) crepitus. Is tender to palpation. (unknown) (no (unknown) (unknown) it is not sharp (units (unknown) date) when she is touched unknown) with a sharp object. (unknown) (no (unknown) (unknown) kidneys (units (unkno wn) date) unknown) (unknown) (no (unknown) (unknown) lateral neck (units (un known) date) superiorly.? The unknown) hematoma itself measures 3.2 by 1.8 cm in greatest (unknown) (no (unknown) (unknown) left (units (unkno wn) date) unknown) (unknown) (no (unknown) (unknown) left. (units (unkno wn) date) unknown) (unknown) (no (unknown) (unknown) lesions.? (units (unkn own) date) unknown) (unknown) (no (unknown) (unknown) lives (units (unkno wn) date) independently: Yes unknown) (unknown) (no (unknown) (unknown) lower extremity (units (unknown) date) but very little if unknown) any in her left lower extremity. She can (unknown) (no (unknown) (unknown) lung apices to the (units (unknown) date) symphysis.? 2.5 mm unknown) thick coronal and sagittal reformats were (unknown) (no (unknown) (unknown) marital status: (units (unknown) date) unknown) (unknown) (no (unknown) (unknown) mass. (units (unkno wn) date) unknown) (unknown) (no (unknown) (unknown) matter chronic (units (unknown) date) small vessel unknown) ischemic changes.? There is a remote right superior (unknown) (no (unknown) (unknown) may represent (units ( unknown) date) atelectasis, unknown) aspiration or pneumonia not excludable. (unknown) (no (unknown) (unknown) mg tablet ([place]) (units (unknown) date) unknown) (unknown) (no (unknown) (unknown) mildly (units (unkno wn) date) unknown) (unknown) (no (unknown) (unknown) move her left (units ( unknown) date) lower extremity. unknown) Can flex and extend her right ankle and can lift (unknown) (no (unknown) (unknown) multilevel (units (unk nown) date) unknown) (unknown) (no (unknown) (unknown) musculature. (units (u nknown) date) unknown) (unknown) (no (unknown) (unknown) narrowest point (units (unknown) date) unknown) (unknown) (no (unknown) (unknown) narrowest (units (unkn own) date) unknown) (unknown) (no (unknown) (unknown) narrowing seen (units (unknown) date) unknown) (unknown) (no (unknown) (unknown) neck. It is not (units (unknown) date) impinging on her unknown) airway. There is no signs of active bleeding (unknown) (no (unknown) (unknown) neurosurgical (units ( unknown) date) consultation unknown) recommended. (unknown) (no (unknown) (unknown) nodular. (units (unkno wn) date) unknown) (unknown) (no (unknown) (unknown) normal courses and (units (unknown) date) calibers.? The unknown) right vertebral artery is dominant to the (unknown) (no (unknown) (unknown) obstruction (units (un known) date) unknown) (unknown) (no (unknown) (unknown) of ecchymosis in (units (unknown) date) her right upper unknown) quadrant/lower ribs. (unknown) (no (unknown) (unknown) on the CT scan. (units (unknown) date) Repeat CT scans unknown) today show no acute changes in the brain. I (unknown) (no (unknown) (unknown) on the right than (units (unknown) date) the left. She unknown) states she can feel something touching her but (unknown) (no (unknown) (unknown) opacities project (units (unknown) date) over the left mid unknown) lung, approximately 2 centimeters each (unknown) (no (unknown) (unknown) opacities.? No (units (unknown) date) pneumothorax.? unknown) Pulmonary vasculature appears prominent. two? (unknown) (no (unknown) (unknown) or inflammation. (units (unknown) date) The stomach appears unknown) unremarkable.? Right hemicolectomy with (unknown) (no (unknown) (unknown) paired (units (unkno wn) date) unknown) (unknown) (no (unknown) (unknown) paramedics. That (units (unknown) date) was her 4th unknown) emergency department visit in 4 days. She was (unknown) (no (unknown) (unknown) patent.? No (units (un known) date) unknown) (unknown) (no (unknown) (unknown) patent.? (units (unkno wn) date) unknown) (unknown) (no (unknown) (unknown) pathology. She (units (unknown) date) does have a large unknown) area of ecchymosis on the right side of her (unknown) (no (unknown) (unknown) patient (units (unkno wn) date) unknown) (unknown) (no (unknown) (unknown) patient.? CT of (units (unknown) date) unknown) (unknown) (no (unknown) (unknown) pedicles (units (unkno wn) date) consistent with a 3 unknown) column fracture.? There is only minimal vertebral (unknown) (no (unknown) (unknown) pedicles (units (unkno wn) date) unknown) (unknown) (no (unknown) (unknown) plaquing noted in (units (unknown) date) the left.? Basilar unknown) compressive atelectasis is similar to (unknown) (no (unknown) (unknown) pleural (units (unkno wn) date) unknown) (unknown) (no (unknown) (unknown) point posterior to (units (unknown) date) the C5-6 disc unknown) interspace.? There is extensive flattening of (unknown) (no (unknown) (unknown) posterior inferior (units (unknown) date) cerebellar artery. unknown) (unknown) (no (unknown) (unknown) posterior inferior (units (unknown) date) cerebellar artery.? unknown) The right V4 segment demonstrates focal (unknown) (no (unknown) (unknown) posterior to the (units (unknown) date) C5-6 disc unknown) interspace.? (unknown) (no (unknown) (unknown) posterior (units (unkn own) date) unknown) (unknown) (no (unknown) (unknown) present which (units ( unknown) date) unknown) (unknown) (no (unknown) (unknown) prominent (units (unkn own) date) unknown) (unknown) (no (unknown) (unknown) quadrant (units (unkno wn) date) unknown) (unknown) (no (unknown) (unknown) relatively (units (unkn own) date) prominent unknown) ossification of the posterior longitudinal ligament seen C5 (unknown) (no (unknown) (unknown) reported (units (unkno wn) date) procedures but unknown) includes the following: (unknown) (no (unknown) (unknown) represent (units (unkn own) date) unknown) (unknown) (no (unknown) (unknown) 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 The canal measures 4 mm at its (unknown) (no (unknown) (unknown) resultant (units (unkno wn) date) ventricular and unknown) sulcal prominence.? There are periventricular and deep (unknown) (no (unknown) (unknown) rib/upper abdomen) (units (unknown) date) unknown) (unknown) (no (unknown) (unknown) right. She has (units (unknown) date) very limited if any unknown) movement in her upper extremities. Can not (unknown) (no (unknown) (unknown) sagittal T2 fast (units (unknown) date) spin echo, and unknown) axial gradient echo or T2 fast spin echo through (unknown) (no (unknown) (unknown) seen (units (unkno wn) date) unknown) (unknown) (no (unknown) (unknown) shrimp [SHRIMP] (units (unknown) date) AdvReac unknown) Intermediate VOMITING Verified 01/09/22 14:22 (unknown) (no (unknown) (unknown) size.? (units (unkno wn) date) unknown) (unknown) (no (unknown) (unknown) slight nodular (units (unknown) date) predominance.? unknown) Follow-up to resolution to exclude underlying (unknown) (no (unknown) (unknown) solid mass (units (unk nown) date) present.? Urinary unknown) bladder unremarkable. (unknown) (no (unknown) (unknown) spinal cord. A (units (unknown) date) right-sided chest unknown) wall contusion was noted. She also has (unknown) (no (unknown) (unknown) spinal fracture. (units (unknown) date) An MRI was unknown) obtained. Received a call from Radiology concern (unknown) (no (unknown) (unknown) spine with (units (unk nown) date) unknown) (unknown) (no (unknown) (unknown) subcutaneous (units (u nknown) date) bruising and soft unknown) tissue swelling noted.? No underlying fracture.? (unknown) (no (unknown) (unknown) suspicious (units (unk nown) date) unknown) (unknown) (no (unknown) (unknown) swelling around (units (unknown) date) her neck. Patient unknown) has had increasing falls over the past couple (unknown) (no (unknown) (unknown) symmetric.? No (units (unknown) date) unknown) (unknown) (no (unknown) (unknown) the C5 dermatome (units (unknown) date) and lower unknown) bilaterally but it seems to be more profound on the (unknown) (no (unknown) (unknown) the aortic arch. (units (unknown) date) Atherosclerotic unknown) calcification is noted.? ? The origins of the (unknown) (no (unknown) (unknown) the chest could be (units (unknown) date) obtained as unknown) clinically indicated.? (unknown) (no (unknown) (unknown) the cord.? (units (unk nown) date) unknown) (unknown) (no (unknown) (unknown) the foramen magnum (units (unknown) date) to the vertex.? unknown) 3-dimensional iysolnj-wimtlktiy-e rojection (unknown) (no (unknown) (unknown) the right (units (unkn own) date) unknown) (unknown) (no (unknown) (unknown) the (units (unkno wn) date) unknown) (unknown) (no (unknown) (unknown) through the [place] (units (unknown) date) of [place].? unknown) Post-contrast 4.5 mm thick sections then re (unknown) (no (unknown) (unknown) through the lungs.? (units (unknown) date) Optional 10-minute unknown) delayed imaging may be performed from the (unknown) (no (unknown) (unknown) through the (units (un known) date) vertebral body, and unknown) also involving the prominent osteophytes.? The (unknown) (no (unknown) (unknown) through (units (unkno wn) date) unknown) (unknown) (no (unknown) (unknown) time was [40] (units ( unknown) date) minutes. This time unknown) is in addition to time spent performing (unknown) (no (unknown) (unknown) to severe (units (unkn own) date) unknown) (unknown) (no (unknown) (unknown) to the bladder.? (units (unknown) date) For radiation dose unknown) reduction, the following was used:? (unknown) (no (unknown) (unknown) to the (units (unkno wn) date) unknown) (unknown) (no (unknown) (unknown) today for (units (unkn own) date) evaluation of unknown) increasing falls and also increasing redness and (unknown) (no (unknown) (unknown) total arthroplasty (units (unknown) date) results in unknown) (unknown) (no (unknown) (unknown) transport with the (units (unknown) date) patient and unknown) . They expressed understanding and (unknown) (no (unknown) (unknown) tripping over (units ( unknown) date) anything she is unknown) just losing her balance and is increasingly weak (unknown) (no (unknown) (unknown) unable to move her (units (unknown) date) upper extremities. unknown) She has slight movement in her right (unknown) (no (unknown) (unknown) underlying (units (unk nown) date) fracture or unknown) intra-abdominal injury (unknown) (no (unknown) (unknown) unremarkable.? (units (unknown) date) unknown) (unknown) (no (unknown) (unknown) vasculature (units (un known) date) unknown) (unknown) (no (unknown) (unknown) ventricles are (units (unknown) date) symmetric in size unknown) and shape.? (unknown) (no (unknown) (unknown) vertex, with (units (u nknown) date) coronal and unknown) sagittal reformats.? For radiation dose reduction, the (unknown) (no (unknown) (unknown) was seen at an (units (unknown) date) outside facility 2 unknown) days ago after being brought there by (unknown) (no (unknown) (unknown) was used:? (units (unk nown) date) automated exposure unknown) control, adjustment of mA and/or kV according to (unknown) (no (unknown) (unknown) white (units (unkno wn) date) unknown) (unknown) (no (unknown) (unknown) with 60-70% (units (un known) date) narrowing seen on unknown) each side. (unknown) (no (unknown) (unknown) with (units (unkno wn) date) unknown) (unknown) (no (unknown) (unknown) without (units (unkno wn) date) unknown) Result panel 62 (unknown) (no (unknown) (unknown) (no value) (units (unk nown) date) unknown) (unknown) (no (unknown) (unknown) 1.9 x 1.1 cm. The (units (unknown) date) collection is unknown) heterogeneously hypoechoic with posterior (unknown) (no (unknown) (unknown) 01/09/2022. (units (un known) date) unknown) (unknown) (no (unknown) (unknown) 01/30/22 (units (unkno wn) date) unknown) (unknown) (no (unknown) (unknown) [address] [place] [address] (units (unknown) date) unknown) (unknown) (no (unknown) (unknown) 3 cm and is not (units (unknown) date) significantly unknown) changed compared to 01/09/2022 (unknown) (no (unknown) (unknown) Accession Number: (units (unknown) date) [id number] unknown) (unknown) (no (unknown) (unknown) Age/Sex: 81 / F (units (unknown) date) Date of Service: unknown) (unknown) (no (unknown) (unknown) [place], [place] (units ( unknown) date) [id number] unknown) (unknown) (no (unknown) (unknown) Approved by: (units (u nknown) date) Samir Del Angel M.D. unknown) on 01/30/2022 at 16:18 (unknown) (no (unknown) (unknown) COMPARISON: (units (un known) date) [facility], unknown) CT, CT ANGIO HEAD AND NECK, 01/09/2022, 15:03. (unknown) (no (unknown) (unknown) : 1940 (units (unknown) date) Acct:[id number] unknown) (unknown) (no (unknown) (unknown) Dictated by: (units (u nknown) date) Samir Del Agnel M.D. unknown) on 01/30/2022 at 16:15 (unknown) (no (unknown) (unknown) FINDINGS: (units (unkn own) date) unknown) (unknown) (no (unknown) (unknown) IMPRESSION: (units (un known) date) unknown) (unknown) (no (unknown) (unknown) INDICATIONS: lump (units (unknown) date) in right jugular unknown) hematoma post op (unknown) (no (unknown) (unknown) [facility] (units (unknown) date) unknown) (unknown) (no (unknown) (unknown) Loc: [place] (units (unkno wn) date) unknown) (unknown) (no (unknown) (unknown) [id number] (units (unk nown) date) unknown) (unknown) (no (unknown) (unknown) Ordering (units (unkno wn) date) Provider: unknown) Liliana Álvarez (unknown) (no (unknown) (unknown) PROCEDURE: US (units ( unknown) date) SOFT TISSUE HEAD unknown) AND NECK (unknown) (no (unknown) (unknown) Patient: (units (unkno wn) date) Kamryn Danielle unknown) MR#: (unknown) (no (unknown) (unknown) Procedure: US (units ( unknown) date) soft tissue head unknown) and neck (unknown) (no (unknown) (unknown) Real-time (units (unkn own) date) scanning was unknown) performed of the neck region of interest, with image (unknown) (no (unknown) (unknown) Right jugular (units ( unknown) date) vein is patent unknown) deep to this abnormality. (unknown) (no (unknown) (unknown) Right neck (units (unk nown) date) palpable unknown) abnormality corresponds to a subcutaneous collection (unknown) (no (unknown) (unknown) Right neck (units (unk nown) date) palpable unknown) abnormality is most consistent with a subcutaneous hematoma (unknown) (no (unknown) (unknown) Signed (units (unkno wn) date) unknown) (unknown) (no (unknown) (unknown) TECHNIQUE: (units (unk nown) date) unknown) (unknown) (no (unknown) (unknown) Ultrasound Report (units (unknown) date) unknown) (unknown) (no (unknown) (unknown) compared to (units (un known) date) unknown) (unknown) (no (unknown) (unknown) documentation. (units (unknown) date) unknown) (unknown) (no (unknown) (unknown) measuring 3 x (units ( unknown) date) unknown) (unknown) (no (unknown) (unknown) measuring (units (unkn own) date) unknown) (unknown) (no (unknown) (unknown) through (units (unkno wn) date) unknown) (unknown) (no (unknown) (unknown) transmission and (units (unknown) date) no internal unknown) vascularity. This is not significantly changed Result panel 63 (unknown) (no (unknown) (unknown) (no value) (units (unk nown) date) unknown) (unknown) (no (unknown) (unknown) >100,000 cfu/ml (unkno wn) date) (unknown) (no (unknown) (unknown) GNBGram negative (units (unknown) date) bacilli unknown) (unknown) (no (unknown) (unknown) Identification (units (unknown) date) and Sensitivity unknown) to Follow (unknown) (no (unknown) (unknown) Very Early (units (unk nown) date) Growth: Culture unknown) too young for work-up reincubated Result panel 64 (unknown) (no (unknown) (unknown) (no value) (units (unk nown) date) unknown) (unknown) (no (unknown) (unknown) [id number] (units (unkn own) date) unknown) (unknown) (no (unknown) (unknown) 1 tab PO Q4HP (units ( unknown) date) PRNQty: 30 0RF unknown) (unknown) (no (unknown) (unknown) 2 mg PO BID Qty: 0 (units (unknown) date) unknown) (unknown) (no (unknown) (unknown) 75 mg PO QDAY Qty: (units (unknown) date) 0 unknown) (unknown) (no (unknown) (unknown) Age/Sex: 81 / F (units (unknown) date) unknown) (unknown) (no (unknown) (unknown) Allergies (units (unkn own) date) unknown) (unknown) (no (unknown) (unknown) Allergy/AdvReac (units (unknown) date) Type Severity unknown) Reaction Status Date / Time (unknown) (no (unknown) (unknown) Atrial (units (unkno wn) date) fibrillation unknown) (unknown) (no (unknown) (unknown) Breast cancer (units ( unknown) date) unknown) (unknown) (no (unknown) (unknown) Cataracts, (units (unk nown) date) bilateral unknown) (unknown) (no (unknown) (unknown) Coronary artery (units (unknown) date) disease unknown) (unknown) (no (unknown) (unknown) : 1940 (units (unknown) date) Acct:[id number] unknown) (unknown) (no (unknown) (unknown) Date of Service: (units (unknown) date) 02/25/22 unknown) (unknown) (no (unknown) (unknown) Departure (units (unkn own) date) unknown) (unknown) (no (unknown) (unknown) Diabetes (units (unkno wn) date) unknown) (unknown) (no (unknown) (unknown) Discharge Plan (units (unknown) date) unknown) (unknown) (no (unknown) (unknown) ER Physician: (units ( unknown) date) Ian Cruz D.O. unknown) (unknown) (no (unknown) (unknown) Emergency Report (units (unknown) date) unknown) (unknown) (no (unknown) (unknown) Gastroesophageal (units (unknown) date) reflux disease unknown) (unknown) (no (unknown) (unknown) General (units (unkno wn) date) unknown) (unknown) (no (unknown) (unknown) HPI - General (units ( unknown) date) Adult unknown) (unknown) (no (unknown) (unknown) High cholesterol (units (unknown) date) unknown) (unknown) (no (unknown) (unknown) History of hip (units (unknown) date) replacement unknown) (unknown) (no (unknown) (unknown) History of (units (unk nown) date) hysterectomy unknown) (unknown) (no (unknown) (unknown) Home Medications (units (unknown) date) unknown) (unknown) (no (unknown) (unknown) Hypertension (units (u nknown) date) unknown) (unknown) (no (unknown) (unknown) [facility] (units (unknown) date) [address] unknown) [place] [address] (unknown) (no (unknown) (unknown) Medical History (units (unknown) date) (Reviewed 01/09/22 unknown) @ 17:43 by Rick Kelley DO) (unknown) (no (unknown) (unknown) Medication (units (unk nown) date) Instructions unknown) Recorded Confirmed (unknown) (no (unknown) (unknown) Medication (units (unk nown) date) Instructions unknown) Recorded (unknown) (no (unknown) (unknown) No Action (units (unkn own) date) unknown) (unknown) (no (unknown) (unknown) Osteoarthritis (units (unknown) date) unknown) (unknown) (no (unknown) (unknown) Patient History (units (unknown) date) unknown) (unknown) (no (unknown) (unknown) Patient: (units (unkno wn) date) ShashiKamryn Rochelle unknown) MR#: M (unknown) (no (unknown) (unknown) Prescriptions: (units (unknown) date) unknown) (unknown) (no (unknown) (unknown) Previous Rx's (units ( unknown) date) unknown) (unknown) (no (unknown) (unknown) Referrals: (units (unk nown) date) unknown) (unknown) (no (unknown) (unknown) Related Data (units (u nknown) date) unknown) (unknown) (no (unknown) (unknown) Jefry Deleon MD (units (unknown) date) [Primary Care unknown) Provider] (unknown) (no (unknown) (unknown) SWELLING (units (unkno wn) date) unknown) (unknown) (no (unknown) (unknown) Signed By: (units (unk nown) date) unknown) (unknown) (no (unknown) (unknown) Social History (units (unknown) date) (Reviewed 01/09/22 unknown) @ 17:43 by Rick Kelley DO) (unknown) (no (unknown) (unknown) Stated complaint: (units (unknown) date) neck back unknown) pain/altercation with [facility] staff (unknown) (no (unknown) (unknown) Surgical History (units (unknown) date) (Reviewed 01/09/22 unknown) @ 17:43 by Rick Kelley DO) (unknown) (no (unknown) (unknown) Time Seen by (units (u nknown) date) Provider: 02/25/22 unknown) 18:06 (unknown) (no (unknown) (unknown) Urinary (units (unkno wn) date) incontinence unknown) (unknown) (no (unknown) (unknown) clopidogrel 75 mg (units (unknown) date) tablet (Plavix) 75 unknown) mg PO QDAY ##0 08/06/16 (unknown) (no (unknown) (unknown) clopidogrel (units (un known) date) [Plavix] 75 MG unknown) tablet (unknown) (no (unknown) (unknown) codeine [CODEINE] (units (unknown) date) Allergy Severe ORAL unknown) Verified 01/09/22 14:22 (unknown) (no (unknown) (unknown) glimepiride 2 mg (units (unknown) date) tablet (Amaryl) 2 unknown) mg PO BID ##0 08/20/16 (unknown) (no (unknown) (unknown) glimepiride (units (un known) date) [Amaryl] 2 MG unknown) tablet (unknown) (no (unknown) (unknown) hydrocodone 5 (units ( unknown) date) mg-acetaminophen unknown) 325 1 tab PO Q4HP PRN #30 tabs 08/21/16 (unknown) (no (unknown) (unknown) hydrocodone-acetam (units (unknown) date) inophen [[place]] 5 unknown) MG/325 MG tablet (unknown) (no (unknown) (unknown) lives (units (unkno wn) date) independently: Yes unknown) (unknown) (no (unknown) (unknown) marital status: (units (unknown) date) unknown) (unknown) (no (unknown) (unknown) mg tablet ([place]) (units (unknown) date) unknown) (unknown) (no (unknown) (unknown) shrimp [SHRIMP] (units (unknown) date) AdvReac unknown) Intermediate VOMITING Verified 01/09/22 14:22 Result panel 65 (unknown) (no (unknown) (unknown) (no value) (units (unk nown) date) unknown) (unknown) (no (unknown) (unknown) 1. No acute (units (un known) date) intracranial unknown) process. (unknown) (no (unknown) (unknown) 02/25/22 (units (unkno wn) date) unknown) (unknown) (no (unknown) (unknown) [address] [place] [address] (units (unknown) date) unknown) (unknown) (no (unknown) (unknown) 2. Moderate (units (un known) date) atrophy and unknown) chronic microvascular ischemic changes. (unknown) (no (unknown) (unknown) Accession Number: (units (unknown) date) [id number] unknown) (unknown) (no (unknown) (unknown) Age/Sex: 81 / F (units (unknown) date) Date of Service: unknown) (unknown) (no (unknown) (unknown) [place], [place] (units ( unknown) date) [id number] unknown) (unknown) (no (unknown) (unknown) Approved by: (units (u nknown) date) Elizabet Bradley M.D. unknown) on 02/25/2022 at 19:25 (unknown) (no (unknown) (unknown) Brain: No (units (unkn own) date) intracranial unknown) bleeds or masses. There is cerebral volume loss for (unknown) (no (unknown) (unknown) COMPARISON: (units (un known) date) [facility], unknown) CT, CT HEAD/BRAIN WO CON, 01/09/2022, 15:03. (unknown) (no (unknown) (unknown) CSF spaces: Basal (units (unknown) date) cisterns are unknown) patent. No extra-axial fluid collections. The (unknown) (no (unknown) (unknown) CT Scan Report (units (unknown) date) unknown) (unknown) (no (unknown) (unknown) : 1940 (units (unknown) date) Acct:[id number] unknown) (unknown) (no (unknown) (unknown) Dictated by: (units (u nknown) date) Elizabet Bradley M.D. unknown) on 02/25/2022 at 19:24 (unknown) (no (unknown) (unknown) FINDINGS: (units (unkn own) date) unknown) (unknown) (no (unknown) (unknown) IMPRESSION: (units (un known) date) unknown) (unknown) (no (unknown) (unknown) INDICATIONS: (units (u nknown) date) recent head injury unknown) (unknown) (no (unknown) (unknown) Image quality: (units (unknown) date) Excellent. unknown) (unknown) (no (unknown) (unknown) [facility] (units (unknown) date) unknown) (unknown) (no (unknown) (unknown) Loc: ED (units (unkno wn) date) unknown) (unknown) (no (unknown) (unknown) [id number] (units (unk nown) date) unknown) (unknown) (no (unknown) (unknown) Noncontrast 4.5 (units (unknown) date) mm thick angled unknown) axial sections acquired from the foramen magnum (unknown) (no (unknown) (unknown) Ordering (units (unkno wn) date) Provider: unknown) Ian Cruz D.O. (unknown) (no (unknown) (unknown) PROCEDURE: CT (units ( unknown) date) HEAD/BRAIN WO CON unknown) (unknown) (no (unknown) (unknown) Patient: (units (unkno wn) date) Kamryn Danielle M unknown) MR#: (unknown) (no (unknown) (unknown) Procedure: CT (units ( unknown) date) head/brain wo con unknown) (unknown) (no (unknown) (unknown) Signed (units (unkno wn) date) unknown) (unknown) (no (unknown) (unknown) Sinuses: (units (unkno wn) date) Visualized sinuses unknown) and mastoids are clear. (unknown) (no (unknown) (unknown) Skull and face: (units (unknown) date) Calvarium and unknown) visualized facial bones appear intact, without (unknown) (no (unknown) (unknown) TECHNIQUE: (units (unk nown) date) unknown) (unknown) (no (unknown) (unknown) age, with (units (unkn own) date) unknown) (unknown) (no (unknown) (unknown) artery (units (unkno wn) date) atherosclerosis. unknown) (unknown) (no (unknown) (unknown) carotid (units (unkno wn) date) unknown) (unknown) (no (unknown) (unknown) deep white (units (unk nown) date) unknown) (unknown) (no (unknown) (unknown) following (units (unkn own) date) unknown) (unknown) (no (unknown) (unknown) lesions. (units (unkno wn) date) unknown) (unknown) (no (unknown) (unknown) matter chronic (units (unknown) date) small vessel unknown) ischemic changes. There is intracranial internal (unknown) (no (unknown) (unknown) patient (units (unkno wn) date) unknown) (unknown) (no (unknown) (unknown) resultant (units (unkn own) date) ventricular and unknown) sulcal prominence. There are periventricular and (unknown) (no (unknown) (unknown) size. (units (unkno wn) date) unknown) (unknown) (no (unknown) (unknown) suspicious (units (unk nown) date) unknown) (unknown) (no (unknown) (unknown) to the (units (unkno wn) date) unknown) (unknown) (no (unknown) (unknown) ventricles are (units (unknown) date) symmetric in size unknown) and shape. (unknown) (no (unknown) (unknown) vertex, with (units (u nknown) date) coronal and unknown) sagittal reformats. For radiation dose reduction, the (unknown) (no (unknown) (unknown) was used: (units (unkn own) date) automated exposure unknown) control, adjustment of mA and/or kV according to Result panel 66 (unknown) (no (unknown) (unknown) (no value) (units (unk nown) date) unknown) (unknown) (no (unknown) (unknown) [id number] (units (unkn own) date) unknown) (unknown) (no (unknown) (unknown) 1 tab PO Q4HP (units ( unknown) date) PRNQty: 30 0RF unknown) (unknown) (no (unknown) (unknown) 02/25/22 18:25 (units (unknown) date) unknown) (unknown) (no (unknown) (unknown) 02/25/22 (units (unkno wn) date) unknown) (unknown) (no (unknown) (unknown) 18:10 02/25/22 (units (unknown) date) unknown) (unknown) (no (unknown) (unknown) 18:11 (units (unkno wn) date) unknown) (unknown) (no (unknown) (unknown) 18:12 02/25/22 (units (unknown) date) unknown) (unknown) (no (unknown) (unknown) 18:14 02/25/22 (units (unknown) date) unknown) (unknown) (no (unknown) (unknown) 18:30 02/25/22 (units (unknown) date) unknown) (unknown) (no (unknown) (unknown) 18:30 (units (unkno wn) date) unknown) (unknown) (no (unknown) (unknown) 19:00 (units (unkno wn) date) unknown) (unknown) (no (unknown) (unknown) 2 mg PO BID Qty: 0 (units (unknown) date) unknown) (unknown) (no (unknown) (unknown) 75 mg PO QDAY Qty: (units (unknown) date) 0 unknown) (unknown) (no (unknown) (unknown) Age/Sex: 81 / F (units (unknown) date) unknown) (unknown) (no (unknown) (unknown) Allergies (units (unkn own) date) unknown) (unknown) (no (unknown) (unknown) Allergy/AdvReac (units (unknown) date) Type Severity unknown) Reaction Status Date / Time (unknown) (no (unknown) (unknown) Atrial (units (unkno wn) date) fibrillation unknown) (unknown) (no (unknown) (unknown) Blood Pressure (units (unknown) date) 136/83 02/25/22 unknown) 18:10 (unknown) (no (unknown) (unknown) Blood Pressure (units (unknown) date) 136/83 136/83 unknown) (unknown) (no (unknown) (unknown) Blood Pressure (units (unknown) date) 175/63 H 143/59 H unknown) (unknown) (no (unknown) (unknown) Blood Pressure (units (unknown) date) unknown) (unknown) (no (unknown) (unknown) Breast cancer (units ( unknown) date) unknown) (unknown) (no (unknown) (unknown) CT head/brain wo (units (unknown) date) con Stat unknown) (unknown) (no (unknown) (unknown) CT scan - head: (units (unknown) date) unknown) (unknown) (no (unknown) (unknown) Cataracts, (units (unk nown) date) bilateral unknown) (unknown) (no (unknown) (unknown) Chief complaint: (units (unknown) date) Back Pain/Injury unknown) (unknown) (no (unknown) (unknown) Coronary artery (units (unknown) date) disease unknown) (unknown) (no (unknown) (unknown) Course (units (unkno wn) date) unknown) (unknown) (no (unknown) (unknown) : 1940 (units (unknown) date) Acct:[id number] unknown) (unknown) (no (unknown) (unknown) Date of Service: (units (unknown) date) 02/25/22 unknown) (unknown) (no (unknown) (unknown) Departure (units (unkn own) date) unknown) (unknown) (no (unknown) (unknown) Diabetes (units (unkno wn) date) unknown) (unknown) (no (unknown) (unknown) Discharge Plan (units (unknown) date) unknown) (unknown) (no (unknown) (unknown) Discontinued (units (u nknown) date) Medications unknown) (unknown) (no (unknown) (unknown) Documented By: RB (units (unknown) date) unknown) (unknown) (no (unknown) (unknown) ED Orders (units (unkn own) date) unknown) (unknown) (no (unknown) (unknown) ER Physician: (units ( unknown) date) Ian Cruz D.O. unknown) (unknown) (no (unknown) (unknown) Emergency Report (units (unknown) date) unknown) (unknown) (no (unknown) (unknown) Exam (units (unkno wn) date) unknown) (unknown) (no (unknown) (unknown) Gastroesophageal (units (unknown) date) reflux disease unknown) (unknown) (no (unknown) (unknown) General (units (unkno wn) date) unknown) (unknown) (no (unknown) (unknown) HPI - General (units ( unknown) date) Adult unknown) (unknown) (no (unknown) (unknown) High cholesterol (units (unknown) date) unknown) (unknown) (no (unknown) (unknown) History of hip (units (unknown) date) replacement unknown) (unknown) (no (unknown) (unknown) History of (units (unk nown) date) hysterectomy unknown) (unknown) (no (unknown) (unknown) Home Medications (units (unknown) date) unknown) (unknown) (no (unknown) (unknown) Hypertension (units (u nknown) date) unknown) (unknown) (no (unknown) (unknown) Imaging Data (units (u nknown) date) unknown) (unknown) (no (unknown) (unknown) Initial Vital (units ( unknown) date) Signs unknown) (unknown) (no (unknown) (unknown) Initial Vital (units ( unknown) date) Signs: unknown) (unknown) (no (unknown) (unknown) [facility] (units (unknown) date) [address] unknown) [place] [address] (unknown) (no (unknown) (unknown) Last Admin: (units (un known) date) 02/25/22 18:34 unknown) Dose: 50 mg (unknown) (no (unknown) (unknown) Medical Decision (units (unknown) date) Making unknown) (unknown) (no (unknown) (unknown) Medical History (units (unknown) date) (Reviewed 01/09/22 unknown) @ 17:43 by Rick Kelley DO) (unknown) (no (unknown) (unknown) Medication (units (unk nown) date) Instructions unknown) Recorded Confirmed (unknown) (no (unknown) (unknown) Medication (units (unk nown) date) Instructions unknown) Recorded (unknown) (no (unknown) (unknown) No Action (units (unkn own) date) unknown) (unknown) (no (unknown) (unknown) Ordered: (units (unkno wn) date) unknown) (unknown) (no (unknown) (unknown) Orders (units (unkno wn) date) unknown) (unknown) (no (unknown) (unknown) Osteoarthritis (units (unknown) date) unknown) (unknown) (no (unknown) (unknown) Oxygen Delivery (units (unknown) date) Method Room Air unknown) (unknown) (no (unknown) (unknown) Oxygen Delivery (units (unknown) date) Method unknown) (unknown) (no (unknown) (unknown) Patient History (units (unknown) date) unknown) (unknown) (no (unknown) (unknown) Patient: (units (unkno wn) date) Kamryn Danielle M unknown) MR#: M (unknown) (no (unknown) (unknown) Prescriptions: (units (unknown) date) unknown) (unknown) (no (unknown) (unknown) Previous Rx's (units ( unknown) date) unknown) (unknown) (no (unknown) (unknown) Pulse Oximetry 98 (units (unknown) date) 98 unknown) (unknown) (no (unknown) (unknown) Pulse Oximetry 98 (units (unknown) date) 99 unknown) (unknown) (no (unknown) (unknown) Pulse Oximetry 98 (units (unknown) date) unknown) (unknown) (no (unknown) (unknown) Pulse Rate 106 H (units (unknown) date) 100 H unknown) (unknown) (no (unknown) (unknown) Pulse Rate 118 H (units (unknown) date) unknown) (unknown) (no (unknown) (unknown) Pulse Rate 119 H (units (unknown) date) 124 H unknown) (unknown) (no (unknown) (unknown) Quetiapine (units (unk nown) date) Fumarate unknown) (Quetiapine 25 Mg Tablet) 50 mg PO NOW ONE (unknown) (no (unknown) (unknown) Radiologist's (units ( unknown) date) Impression: unknown) (unknown) (no (unknown) (unknown) Referrals: (units (unk nown) date) unknown) (unknown) (no (unknown) (unknown) Related Data (units (u nknown) date) unknown) (unknown) (no (unknown) (unknown) Respiratory Rate (units (unknown) date) 20 unknown) (unknown) (no (unknown) (unknown) Respiratory Rate (units (unknown) date) unknown) (unknown) (no (unknown) (unknown) Jefry Deleon MD (units (unknown) date) [Primary Care unknown) Provider] (unknown) (no (unknown) (unknown) SWELLING (units (unkno wn) date) unknown) (unknown) (no (unknown) (unknown) Signed By: (units (unk nown) date) unknown) (unknown) (no (unknown) (unknown) Social History (units (unknown) date) (Reviewed 01/09/22 unknown) @ 17:43 by Rick Kelley DO) (unknown) (no (unknown) (unknown) Stated complaint: (units (unknown) date) neck back unknown) pain/altercation with [facility] staff (unknown) (no (unknown) (unknown) Stop: 02/25/22 (units (unknown) date) 18:26 unknown) (unknown) (no (unknown) (unknown) Surgical History (units (unknown) date) (Reviewed 01/09/22 unknown) @ 17:43 by Rick Kelley DO) (unknown) (no (unknown) (unknown) Temperature 98.2 F (units (unknown) date) unknown) (unknown) (no (unknown) (unknown) Temperature (units (un known) date) unknown) (unknown) (no (unknown) (unknown) Time Seen by (units (u nknown) date) Provider: 02/25/22 unknown) 18:06 (unknown) (no (unknown) (unknown) Urinary (units (unkno wn) date) incontinence unknown) (unknown) (no (unknown) (unknown) Vital Signs - 8 hr (units (unknown) date) unknown) (unknown) (no (unknown) (unknown) Vital Signs (units (un known) date) unknown) (unknown) (no (unknown) (unknown) Vital signs: (units (u nknown) date) unknown) (unknown) (no (unknown) (unknown) clopidogrel 75 mg (units (unknown) date) tablet (Plavix) 75 unknown) mg PO QDAY ##0 08/06/16 (unknown) (no (unknown) (unknown) clopidogrel (units (un known) date) [Plavix] 75 MG unknown) tablet (unknown) (no (unknown) (unknown) codeine [CODEINE] (units (unknown) date) Allergy Severe ORAL unknown) Verified 01/09/22 14:22 (unknown) (no (unknown) (unknown) glimepiride 2 mg (units (unknown) date) tablet (Amaryl) 2 unknown) mg PO BID ##0 08/20/16 (unknown) (no (unknown) (unknown) glimepiride (units (un known) date) [Amaryl] 2 MG unknown) tablet (unknown) (no (unknown) (unknown) hydrocodone 5 (units ( unknown) date) mg-acetaminophen unknown) 325 1 tab PO Q4HP PRN #30 tabs 08/21/16 (unknown) (no (unknown) (unknown) hydrocodone-acetam (units (unknown) date) inophen [[place]] 5 unknown) MG/325 MG tablet (unknown) (no (unknown) (unknown) lives (units (unkno wn) date) independently: Yes unknown) (unknown) (no (unknown) (unknown) marital status: (units (unknown) date) unknown) (unknown) (no (unknown) (unknown) mg tablet ([place]) (units (unknown) date) unknown) (unknown) (no (unknown) (unknown) shrimp [SHRIMP] (units (unknown) date) AdvReac unknown) Intermediate VOMITING Verified 01/09/22 14:22 Result panel 67 (unknown) (no (unknown) (unknown) (no value) (units (unk nown) date) unknown) (unknown) (no (unknown) (unknown) *If you do not (units (unknown) date) have a primary care unknown) provider please contact the [facility] (unknown) (no (unknown) (unknown) *Please continue (units (unknown) date) to take your unknown) regular medications as directed. (unknown) (no (unknown) (unknown) *Please follow up (units (unknown) date) with your primary unknown) care provider in 2-3 days, call for an (unknown) (no (unknown) (unknown) *Return to (units (unk nown) date) Emergency unknown) Department if you should have any new, worsening or (unknown) (no (unknown) (unknown) *What to do: (units (u nknown) date) unknown) (unknown) (no (unknown) (unknown) *You have been (units (unknown) date) diagnosed with unknown) [facial contusion. CT scan was negative and no (unknown) (no (unknown) (unknown) [id number] (units (unkn own) date) unknown) (unknown) (no (unknown) (unknown) 1 tab PO Q4HP (units ( unknown) date) PRNQty: 30 0RF unknown) (unknown) (no (unknown) (unknown) 02/25/22 18:25 (units (unknown) date) unknown) (unknown) (no (unknown) (unknown) 02/25/22 (units (unkno wn) date) unknown) (unknown) (no (unknown) (unknown) 18:10 02/25/22 (units (unknown) date) unknown) (unknown) (no (unknown) (unknown) 18:11 (units (unkno wn) date) unknown) (unknown) (no (unknown) (unknown) 18:12 02/25/22 (units (unknown) date) unknown) (unknown) (no (unknown) (unknown) 18:14 02/25/22 (units (unknown) date) unknown) (unknown) (no (unknown) (unknown) 18:30 02/25/22 (units (unknown) date) unknown) (unknown) (no (unknown) (unknown) 18:30 (units (unkno wn) date) unknown) (unknown) (no (unknown) (unknown) 19:00 02/25/22 (units (unknown) date) unknown) (unknown) (no (unknown) (unknown) 19:15 (units (unkno wn) date) unknown) (unknown) (no (unknown) (unknown) 19:18 02/25/22 (units (unknown) date) unknown) (unknown) (no (unknown) (unknown) 19:30 02/25/22 (units (unknown) date) unknown) (unknown) (no (unknown) (unknown) 19:30 (units (unkno wn) date) unknown) (unknown) (no (unknown) (unknown) 19:45 02/25/22 (units (unknown) date) unknown) (unknown) (no (unknown) (unknown) 2 mg PO BID Qty: 0 (units (unknown) date) unknown) (unknown) (no (unknown) (unknown) 20:00 (units (unkno wn) date) unknown) (unknown) (no (unknown) (unknown) 20:01 02/25/22 (units (unknown) date) unknown) (unknown) (no (unknown) (unknown) 20:01 (units (unkno wn) date) unknown) (unknown) (no (unknown) (unknown) 75 mg PO QDAY Qty: (units (unknown) date) 0 unknown) (unknown) (no (unknown) (unknown) 81-year-old female (units (unknown) date) nonsmoker with unknown) history of spinal stenosis, diabetes, atrial (unknown) (no (unknown) (unknown) Activity (units (unkno wn) date) Restrictions/Additi unknown) onal Instructions: (unknown) (no (unknown) (unknown) Age/Sex: 81 / F (units (unknown) date) unknown) (unknown) (no (unknown) (unknown) Allergies (units (unkn own) date) unknown) (unknown) (no (unknown) (unknown) Allergy/AdvReac (units (unknown) date) Type Severity unknown) Reaction Status Date / Time (unknown) (no (unknown) (unknown) Atrial (units (unkno wn) date) fibrillation unknown) (unknown) (no (unknown) (unknown) Blood Pressure (units (unknown) date) 129/67 137/69 unknown) (unknown) (no (unknown) (unknown) Blood Pressure (units (unknown) date) 136/83 02/25/ unknown) 18:10 (unknown) (no (unknown) (unknown) Blood Pressure (units (unknown) date) 136/83 136/83 unknown) (unknown) (no (unknown) (unknown) Blood Pressure (units (unknown) date) 175/63 H 143/59 H unknown) (unknown) (no (unknown) (unknown) Blood Pressure (units (unknown) date) 178/85 H unknown) (unknown) (no (unknown) (unknown) Blood Pressure (units (unknown) date) unknown) (unknown) (no (unknown) (unknown) Breast cancer (units ( unknown) date) unknown) (unknown) (no (unknown) (unknown) CT head/brain wo (units (unknown) date) con Stat unknown) (unknown) (no (unknown) (unknown) CT scan - head: (units (unknown) date) unknown) (unknown) (no (unknown) (unknown) Cataracts, (units (unk nown) date) bilateral unknown) (unknown) (no (unknown) (unknown) Chief complaint: (units (unknown) date) Back Pain/Injury unknown) (unknown) (no (unknown) (unknown) Clinical (units (unkno wn) date) Impression: unknown) (unknown) (no (unknown) (unknown) Contusion of face (units (unknown) date) unknown) (unknown) (no (unknown) (unknown) Coronary artery (units (unknown) date) disease unknown) (unknown) (no (unknown) (unknown) Course (units (unkno wn) date) unknown) (unknown) (no (unknown) (unknown) : 1940 (units (unknown) date) Acct:[id number] unknown) (unknown) (no (unknown) (unknown) Date of Service: (units (unknown) date) 02/25/22 unknown) (unknown) (no (unknown) (unknown) Departure (units (unkn own) date) unknown) (unknown) (no (unknown) (unknown) Diabetes (units (unkno wn) date) unknown) (unknown) (no (unknown) (unknown) Discharge Plan (units (unknown) date) unknown) (unknown) (no (unknown) (unknown) Discontinued (units (u nknown) date) Medications unknown) (unknown) (no (unknown) (unknown) Documented By: RB (units (unknown) date) unknown) (unknown) (no (unknown) (unknown) ED Orders (units (unkn own) date) unknown) (unknown) (no (unknown) (unknown) ER Physician: (units ( unknown) date) Ian Cruz D.O. unknown) (unknown) (no (unknown) (unknown) Emergency Report (units (unknown) date) unknown) (unknown) (no (unknown) (unknown) Exam (units (unkno wn) date) unknown) (unknown) (no (unknown) (unknown) Gastroesophageal (units (unknown) date) reflux disease unknown) (unknown) (no (unknown) (unknown) General (units (unkno wn) date) unknown) (unknown) (no (unknown) (unknown) HPI - General (units ( unknown) date) Adult unknown) (unknown) (no (unknown) (unknown) HPI narrative: (units (unknown) date) unknown) (unknown) (no (unknown) (unknown) High cholesterol (units (unknown) date) unknown) (unknown) (no (unknown) (unknown) History of Present (units (unknown) date) Illness unknown) (unknown) (no (unknown) (unknown) History of hip (units (unknown) date) replacement unknown) (unknown) (no (unknown) (unknown) History of (units (unk nown) date) hysterectomy unknown) (unknown) (no (unknown) (unknown) Home Medications (units (unknown) date) unknown) (unknown) (no (unknown) (unknown) Hypertension (units (u nknown) date) unknown) (unknown) (no (unknown) (unknown) Imaging Data (units (u nknown) date) unknown) (unknown) (no (unknown) (unknown) Initial Vital (units ( unknown) date) Signs unknown) (unknown) (no (unknown) (unknown) Initial Vital (units ( unknown) date) Signs: unknown) (unknown) (no (unknown) (unknown) Instructions: DI (units (unknown) date) for Contusion unknown) (unknown) (no (unknown) (unknown) [facility] (units (unknown) date) [address] [place] [address] unknown) [place] [address] (unknown) (no (unknown) (unknown) Last Admin: (units (un known) date) 02/25/22 18:34 unknown) Dose: 50 mg (unknown) (no (unknown) (unknown) Medical Decision (units (unknown) date) Making unknown) (unknown) (no (unknown) (unknown) Medical History (units (unknown) date) (Reviewed 01/09/22 unknown) @ 17:43 by Rick Kelley DO) (unknown) (no (unknown) (unknown) Medication (units (unk nown) date) Instructions unknown) Recorded Confirmed (unknown) (no (unknown) (unknown) Medication (units (unk nown) date) Instructions unknown) Recorded (unknown) (no (unknown) (unknown) No Action (units (unkn own) date) unknown) (unknown) (no (unknown) (unknown) Ordered: (units (unkno wn) date) unknown) (unknown) (no (unknown) (unknown) Orders (units (unkno wn) date) unknown) (unknown) (no (unknown) (unknown) Osteoarthritis (units (unknown) date) unknown) (unknown) (no (unknown) (unknown) Oxygen Delivery (units (unknown) date) Method Room Air unknown) (unknown) (no (unknown) (unknown) Oxygen Delivery (units (unknown) date) Method unknown) (unknown) (no (unknown) (unknown) Patient (units (unkno wn) date) Disposition: Home unknown) (unknown) (no (unknown) (unknown) Patient History (units (unknown) date) unknown) (unknown) (no (unknown) (unknown) Patient: (units (unkno wn) date) Kamryn Danielle M unknown) MR#: M (unknown) (no (unknown) (unknown) Prescriptions: (units (unknown) date) unknown) (unknown) (no (unknown) (unknown) Previous Rx's (units ( unknown) date) unknown) (unknown) (no (unknown) (unknown) Pulse Oximetry 96 (units (unknown) date) 97 98 unknown) (unknown) (no (unknown) (unknown) Pulse Oximetry 97 (units (unknown) date) unknown) (unknown) (no (unknown) (unknown) Pulse Oximetry 98 (units (unknown) date) 98 unknown) (unknown) (no (unknown) (unknown) Pulse Oximetry 98 (units (unknown) date) 99 98 unknown) (unknown) (no (unknown) (unknown) Pulse Oximetry 98 (units (unknown) date) unknown) (unknown) (no (unknown) (unknown) Pulse Rate 106 H (units (unknown) date) 100 H 100 H unknown) (unknown) (no (unknown) (unknown) Pulse Rate 118 H (units (unknown) date) unknown) (unknown) (no (unknown) (unknown) Pulse Rate 119 H (units (unknown) date) 124 H unknown) (unknown) (no (unknown) (unknown) Pulse Rate 89 88 (units (unknown) date) 107 H unknown) (unknown) (no (unknown) (unknown) Pulse Rate 97 H (units (unknown) date) unknown) (unknown) (no (unknown) (unknown) Pulse Rate 99 H (units (unknown) date) unknown) (unknown) (no (unknown) (unknown) Quetiapine (units (unk nown) date) Fumarate unknown) (Quetiapine 25 Mg Tablet) 50 mg PO NOW ONE (unknown) (no (unknown) (unknown) Radiologist's (units ( unknown) date) Impression: unknown) (unknown) (no (unknown) (unknown) Referrals: (units (unk nown) date) unknown) (unknown) (no (unknown) (unknown) Related Data (units (u nknown) date) unknown) (unknown) (no (unknown) (unknown) Resource line at (units (unknown) date) [phone]. They unknown) will ask some questions about your medical (unknown) (no (unknown) (unknown) Respiratory Rate (units (unknown) date) 20 unknown) (unknown) (no (unknown) (unknown) Respiratory Rate (units (unknown) date) unknown) (unknown) (no (unknown) (unknown) Jefry Deleon MD (units (unknown) date) [Primary Care unknown) Provider] (unknown) (no (unknown) (unknown) SWELLING (units (unkno wn) date) unknown) (unknown) (no (unknown) (unknown) Signed By: (units (unk nown) date) unknown) (unknown) (no (unknown) (unknown) Social History (units (unknown) date) (Reviewed 01/09/22 unknown) @ 17:43 by Rick Kelley DO) (unknown) (no (unknown) (unknown) Stated complaint: (units (unknown) date) neck back unknown) pain/altercation with [facility] staff (unknown) (no (unknown) (unknown) Stop: 02/25/22 (units (unknown) date) 18:26 unknown) (unknown) (no (unknown) (unknown) Surgical History (units (unknown) date) (Reviewed 01/09/22 unknown) @ 17:43 by Rick Kelley DO) (unknown) (no (unknown) (unknown) Temperature 98.2 F (units (unknown) date) unknown) (unknown) (no (unknown) (unknown) Temperature (units (un known) date) unknown) (unknown) (no (unknown) (unknown) Time Seen by (units (u nknown) date) Provider: 02/25/22 unknown) 18:06 (unknown) (no (unknown) (unknown) Urinary (units (unkno wn) date) incontinence unknown) (unknown) (no (unknown) (unknown) Vital Signs - 8 hr (units (unknown) date) unknown) (unknown) (no (unknown) (unknown) Vital Signs (units (un known) date) unknown) (unknown) (no (unknown) (unknown) Vital signs: (units (u nknown) date) unknown) (unknown) (no (unknown) (unknown) [ ] New medication (units (unknown) date) prescriptions sent unknown) to your pharmacy: [ ] (unknown) (no (unknown) (unknown) [ ] New medication (units (unknown) date) written as a paper unknown) prescription (unknown) (no (unknown) (unknown) [ ] No new (units (unk nown) date) medications given unknown) (unknown) (no (unknown) (unknown) appointment. Let (units (unknown) date) them know you were unknown) seen in the Emergency Department and that we (unknown) (no (unknown) (unknown) ask that you be (units (unknown) date) seen in follow up. unknown) We will electronically transmit a record of (unknown) (no (unknown) (unknown) clopidogrel 75 mg (units (unknown) date) tablet (Plavix) 75 unknown) mg PO QDAY ##0 08/06/16 (unknown) (no (unknown) (unknown) clopidogrel (units (un known) date) [Plavix] 75 MG unknown) tablet (unknown) (no (unknown) (unknown) codeine [CODEINE] (units (unknown) date) Allergy Severe ORAL unknown) Verified 01/09/22 14:22 (unknown) (no (unknown) (unknown) concerning (units (unk nown) date) symptoms unknown) (unknown) (no (unknown) (unknown) evidence of (units (un known) date) fracture or unknown) bleeding is noted] (unknown) (no (unknown) (unknown) fibrillation on (units (unknown) date) Plavix unknown) (unknown) (no (unknown) (unknown) glimepiride 2 mg (units (unknown) date) tablet (Amaryl) 2 unknown) mg PO BID ##0 08/20/16 (unknown) (no (unknown) (unknown) glimepiride (units (un known) date) [Amaryl] 2 MG unknown) tablet (unknown) (no (unknown) (unknown) history and help (units (unknown) date) get you set up with unknown) a doctor in the community. (unknown) (no (unknown) (unknown) hydrocodone 5 (units ( unknown) date) mg-acetaminophen unknown) 325 1 tab PO Q4HP PRN #30 tabs 08/21/16 (unknown) (no (unknown) (unknown) hydrocodone-acetam (units (unknown) date) inophen [[place]] 5 unknown) MG/325 MG tablet (unknown) (no (unknown) (unknown) lives (units (unkno wn) date) independently: Yes unknown) (unknown) (no (unknown) (unknown) marital status: (units (unknown) date) unknown) (unknown) (no (unknown) (unknown) mg tablet ([place]) (units (unknown) date) unknown) (unknown) (no (unknown) (unknown) shrimp [SHRIMP] (units (unknown) date) AdvReac unknown) Intermediate VOMITING Verified 01/09/22 14:22 (unknown) (no (unknown) (unknown) today's note if (units (unknown) date) your PCP is in our unknown) system Result panel 68 (unknown) (no date) (unknown) (unknown) 1-5 /HPF (units (unkn own) unknown) (unknown) (no date) (unknown) (unknown) 30-100/HPF (units (un known) unknown) (unknown) (no date) (unknown) (unknown) Many (>30) (units (un known) unknown) (unknown) (no date) (unknown) (unknown) None Seen (units (unk nown) unknown) (unknown) (no date) (unknown) (unknown) None Seen (units (unk nown) unknown) Result panel 69 (unknown) (no (unknown) (unknown) (no value) (units (unk nown) date) unknown) (unknown) (no (unknown) (unknown) <Electronically (units (unknown) date) signed by Ian unknownMarlon Cruz D.O.> (unknown) (no (unknown) (unknown) *If you do not (units (unknown) date) have a primary care unknown) provider please contact the [facility] (unknown) (no (unknown) (unknown) *Please continue (units (unknown) date) to take your unknown) regular medications as directed. (unknown) (no (unknown) (unknown) *Please follow up (units (unknown) date) with your primary unknown) care provider in 2-3 days, call for an (unknown) (no (unknown) (unknown) *Return to (units (unk nown) date) Emergency unknown) Department if you should have any new, worsening or (unknown) (no (unknown) (unknown) *What to do: (units (u nknown) date) unknown) (unknown) (no (unknown) (unknown) *You have been (units (unknown) date) diagnosed with unknown) [facial contusion. CT scan was negative and no (unknown) (no (unknown) (unknown) [id number] (units (unkn own) date) unknown) (unknown) (no (unknown) (unknown) 00:32 (units (unkno wn) date) unknown) (unknown) (no (unknown) (unknown) 01:45 (units (unkno wn) date) unknown) (unknown) (no (unknown) (unknown) 1 tab PO Q4HP (units ( unknown) date) PRNQty: 30 0RF unknown) (unknown) (no (unknown) (unknown) 1. No acute (units (un known) date) intracranial unknown) process. (unknown) (no (unknown) (unknown) 01/09/22 (units (unkno wn) date) unknown) (unknown) (no (unknown) (unknown) 01/30/22 (units (unkno wn) date) unknown) (unknown) (no (unknown) (unknown) 02/25/22 (units (unkno wn) date) unknown) (unknown) (no (unknown) (unknown) 02/26/22 00:32 (units (unknown) date) unknown) (unknown) (no (unknown) (unknown) 02/26/22 0513 (units ( unknown) date) unknown) (unknown) (no (unknown) (unknown) 02/26/22 (units (unkno wn) date) Range/Units unknown) (unknown) (no (unknown) (unknown) 02/26/22 (units (unkno wn) date) unknown) (unknown) (no (unknown) (unknown) 12 point review of (units (unknown) date) systems is negative unknown) except for those stated above (unknown) (no (unknown) (unknown) [facility] (units (unknown) date) unknown) (unknown) (no (unknown) (unknown) 2 mg PO BID Qty: 0 (units (unknown) date) unknown) (unknown) (no (unknown) (unknown) 2. Moderate (units (un known) date) atrophy and chronic unknown) microvascular ischemic changes. (unknown) (no (unknown) (unknown) 500 mg PO BID Qty: (units (unknown) date) 10 0RF unknown) (unknown) (no (unknown) (unknown) 75 mg PO QDAY Qty: (units (unknown) date) 0 unknown) (unknown) (no (unknown) (unknown) 81-year-old female (units (unknown) date) nonsmoker with unknown) history of spinal stenosis, diabetes, atrial (unknown) (no (unknown) (unknown) ? (units (unkno wn) date) unknown) (unknown) (no (unknown) (unknown) Accession Number: (units (unknown) date) [id number] ?? unknown) (unknown) (no (unknown) (unknown) Acct:[id number] (units (unknown) date) unknown) (unknown) (no (unknown) (unknown) Activity (units (unkno wn) date) Restrictions/Additi unknown) onal Instructions: (unknown) (no (unknown) (unknown) Age/Sex: 81 / F (units (unknown) date) unknown) (unknown) (no (unknown) (unknown) Allergies (units (unkn own) date) unknown) (unknown) (no (unknown) (unknown) Allergy/AdvReac (units (unknown) date) Type Severity unknown) Reaction Status Date / Time (unknown) (no (unknown) (unknown) MAIDA Pelletier (units ( unknown) date) [id number] unknown) (unknown) (no (unknown) (unknown) Approved by: (units (u nknown) date) Elizabet Bradley M.D. unknown) on 02/25/2022 at 19:25 ? (unknown) (no (unknown) (unknown) Atrial (units (unkno wn) date) fibrillation unknown) (unknown) (no (unknown) (unknown) BACK: Nontender (units (unknown) date) without deformity unknown) or crepitance. No flank tenderness. (unknown) (no (unknown) (unknown) Bedside Urine (units ( unknown) date) Bilirubin - unknown) Negative (unknown) (no (unknown) (unknown) Bedside Urine (units ( unknown) date) Glucose Negative unknown) (unknown) (no (unknown) (unknown) Bedside Urine (units ( unknown) date) Ketone - Negative unknown) (unknown) (no (unknown) (unknown) Bedside Urine (units ( unknown) date) Leukocytes ++ 125 unknown) (unknown) (no (unknown) (unknown) Bedside Urine (units ( unknown) date) Nitrite + Positive unknown) (unknown) (no (unknown) (unknown) Bedside Urine (units ( unknown) date) Occult Blood +/ unknown) (unknown) (no (unknown) (unknown) Bedside Urine (units ( unknown) date) Protein - Negative unknown) (unknown) (no (unknown) (unknown) Bedside Urine (units ( unknown) date) Urobilinogen - unknown) Negative (unknown) (no (unknown) (unknown) Bedside Urine pH (units (unknown) date) 6.0 unknown) (unknown) (no (unknown) (unknown) Blood Pressure (units (unknown) date) 136/83 02/25/22 unknown) 18:10 (unknown) (no (unknown) (unknown) Blood Pressure (units (unknown) date) 165/74 H unknown) (unknown) (no (unknown) (unknown) Brain:? No (units (unk nown) date) intracranial bleeds unknown) or masses.? There is cerebral volume loss for (unknown) (no (unknown) (unknown) Breast cancer (units ( unknown) date) unknown) (unknown) (no (unknown) (unknown) CARDIOVASCULAR: (units (unknown) date) Denies chest pain, unknown) palpitations, orthopnea, edema, (unknown) (no (unknown) (unknown) CARDIOVASCULAR: (units (unknown) date) Regular rate and unknown) rhythm without murmurs, gallops, or rubs. (unknown) (no (unknown) (unknown) COMPARISON:? (units (u nknown) date) [facility], unknown) CT, CT HEAD/BRAIN WO CON, 01/09/2022, 15:03. (unknown) (no (unknown) (unknown) CSF spaces:? Basal (units (unknown) date) cisterns are unknown) patent.? No extra-axial fluid collections.? The (unknown) (no (unknown) (unknown) CT Scan Report (units (unknown) date) unknown) (unknown) (no (unknown) (unknown) CT scan - head: (units (unknown) date) unknown) (unknown) (no (unknown) (unknown) Call,Samir (units (unk nown) date) unknown) (unknown) (no (unknown) (unknown) Cataracts, (units (unk nown) date) bilateral unknown) (unknown) (no (unknown) (unknown) Cefazolin Sodium (units (unknown) date) (Cephalexin 250 Mg unknown) Prepack) 1 bottle MISC SEEINSTR ONE (unknown) (no (unknown) (unknown) Cervical Spine MRI (units (unknown) date) (Signed) unknown) (unknown) (no (unknown) (unknown) Chest X-Ray (units (un known) date) (Signed) unknown) (unknown) (no (unknown) (unknown) Chest/Abdomen/Pelv (units (unknown) date) is CT (Signed) unknown) (unknown) (no (unknown) (unknown) Chief complaint: (units (unknown) date) Back Pain/Injury unknown) (unknown) (no (unknown) (unknown) Elizabet Bradley (units (u nknown) date) unknown) (unknown) (no (unknown) (unknown) Clinical (units (unkno wn) date) Impression: unknown) (unknown) (no (unknown) (unknown) Close (units (unkno wn) date) unknown) (unknown) (no (unknown) (unknown) Contusion of face, (units (unknown) date) Acute UTI unknown) (unknown) (no (unknown) (unknown) Coronary artery (units (unknown) date) disease unknown) (unknown) (no (unknown) (unknown) Course (units (unkno wn) date) unknown) (unknown) (no (unknown) (unknown) : 1940 (units (unknown) date) Acct:[id number] unknown) (unknown) (no (unknown) (unknown) : 1940 (units (unknown) date) unknown) (unknown) (no (unknown) (unknown) Date of Service: (units (unknown) date) 02/25/22 unknown) (unknown) (no (unknown) (unknown) Departure (units (unkn own) date) unknown) (unknown) (no (unknown) (unknown) Diabetes (units (unkno wn) date) unknown) (unknown) (no (unknown) (unknown) Dictated by: (units (u nknown) date) Elizabet Bradley M.D. unknown) on 02/25/2022 at 19:24 ? ? (unknown) (no (unknown) (unknown) Discharge Plan (units (unknown) date) unknown) (unknown) (no (unknown) (unknown) Discontinued (units (u nknown) date) Medications unknown) (unknown) (no (unknown) (unknown) Documented By: MLM (units (unknown) date) unknown) (unknown) (no (unknown) (unknown) Documented By: RB (units (unknown) date) unknown) (unknown) (no (unknown) (unknown) ED Orders (units (unkn own) date) unknown) (unknown) (no (unknown) (unknown) ENT: Nose without (units (unknown) date) bleeding, purulent unknown) drainage. Throat without erythema, (unknown) (no (unknown) (unknown) ER Physician: (units ( unknown) date) Ian Cruz D.O. unknown) (unknown) (no (unknown) (unknown) EXTREMITIES: No (units (unknown) date) edema or joint unknown) tenderness. (unknown) (no (unknown) (unknown) EYES: Pupils equal (units (unknown) date) round and reactive. unknown) No hyphema Extraocular motions intact. (unknown) (no (unknown) (unknown) Emergency Report (units (unknown) date) unknown) (unknown) (no (unknown) (unknown) Esterase (units (unkno wn) date) unknown) (unknown) (no (unknown) (unknown) Exam Narrative: (units (unknown) date) unknown) (unknown) (no (unknown) (unknown) Exam (units (unkno wn) date) unknown) (unknown) (no (unknown) (unknown) FINDINGS:? (units (unk nown) date) unknown) (unknown) (no (unknown) (unknown) GASTROINTESTINAL: (units (unknown) date) Abdomen soft, unknown) non-tender, nondistended. (unknown) (no (unknown) (unknown) GASTROINTESTINAL: (units (unknown) date) Denies nausea, unknown) vomiting, abdominal pain, diarrhea, (unknown) (no (unknown) (unknown) GENERAL: Denies (units (unknown) date) chills, fatigue, unknown) malaise, fever, sweats. (unknown) (no (unknown) (unknown) GENERAL: [81] year (units (unknown) date) old patient appears unknown) stated age. Well-developed patient, in (unknown) (no (unknown) (unknown) : Denies (units (unk nown) date) dysuria, frequency, unknown) incontinence, hematuria, urinary retention. (unknown) (no (unknown) (unknown) Gastroesophageal (units (unknown) date) reflux disease unknown) (unknown) (no (unknown) (unknown) General (units (unkno wn) date) unknown) (unknown) (no (unknown) (unknown) HEAD: Yellowing (units (unknown) date) bruising to the unknown) left side of forehead, no evidence of depressed (unknown) (no (unknown) (unknown) HEENT: Denies (units ( unknown) date) sinus pain, ear unknown) pain, sore throat, difficulty swallowing, (unknown) (no (unknown) (unknown) HPI - General (units ( unknown) date) Adult unknown) (unknown) (no (unknown) (unknown) HPI narrative: (units (unknown) date) unknown) (unknown) (no (unknown) (unknown) Head CT (Signed) (units (unknown) date) unknown) (unknown) (no (unknown) (unknown) Head/Neck CTA (units ( unknown) date) (Signed) unknown) (unknown) (no (unknown) (unknown) Head/Neck (units (unkn own) date) Ultrasound (Signed) unknown) (unknown) (no (unknown) (unknown) High cholesterol (units (unknown) date) unknown) (unknown) (no (unknown) (unknown) History of Present (units (unknown) date) Illness unknown) (unknown) (no (unknown) (unknown) History of hip (units (unknown) date) replacement unknown) (unknown) (no (unknown) (unknown) History of (units (unk nown) date) hysterectomy unknown) (unknown) (no (unknown) (unknown) Home Medications (units (unknown) date) unknown) (unknown) (no (unknown) (unknown) Hypertension (units (u nknown) date) unknown) (unknown) (no (unknown) (unknown) IMPRESSION:? (units (u nknown) date) unknown) (unknown) (no (unknown) (unknown) INDICATIONS:? (units ( unknown) date) recent head injury unknown) (unknown) (no (unknown) (unknown) Image quality:? (units (unknown) date) Excellent.? unknown) (unknown) (no (unknown) (unknown) Imaging Data (units (u nknown) date) unknown) (unknown) (no (unknown) (unknown) Initial Vital (units ( unknown) date) Signs unknown) (unknown) (no (unknown) (unknown) Initial Vital (units ( unknown) date) Signs: unknown) (unknown) (no (unknown) (unknown) Instructions: DI (units (unknown) date) for Urinary Tract unknown) Infection (UTI), DI for Contusion (unknown) (no (unknown) (unknown) [facility] (units (unknown) date) [address] [place] [address] unknown) [place] [address] (unknown) (no (unknown) (unknown) [facility] (units (unknown) date) unknown) (unknown) (no (unknown) (unknown) Boris Cardona (units ( unknown) date) unknown) (unknown) (no (unknown) (unknown) Edna Alan (units (un known) date) unknown) (unknown) (no (unknown) (unknown) Lab Data (units (unkno wn) date) unknown) (unknown) (no (unknown) (unknown) Lab Results (units (un known) date) unknown) (unknown) (no (unknown) (unknown) Labs: (units (unkno wn) date) unknown) (unknown) (no (unknown) (unknown) Last Admin: (units (un known) date) 02/25/22 18:34 unknown) Dose: 50 mg (unknown) (no (unknown) (unknown) Last Admin: (units (un known) date) 02/26/22 01:40 unknown) Dose: 1 mg (unknown) (no (unknown) (unknown) Launch?Image (units (u nknown) date) unknown) (unknown) (no (unknown) (unknown) Loc: ED (units (unkno wn) date) unknown) (unknown) (no (unknown) (unknown) MR#: [id number] (units (unknown) date) unknown) (unknown) (no (unknown) (unknown) MUSCULOSKELETAL: (units (unknown) date) denies weakness, unknown) joint pain, or bony pain (unknown) (no (unknown) (unknown) Medical Decision (units (unknown) date) Making unknown) (unknown) (no (unknown) (unknown) Medical History (units (unknown) date) (Reviewed 02/26/22 unknown) @ 05:11 by Ian Cruz DO) (unknown) (no (unknown) (unknown) Medication (units (unk nown) date) Instructions unknown) Recorded Confirmed (unknown) (no (unknown) (unknown) Medication (units (unk nown) date) Instructions unknown) Recorded (unknown) (no (unknown) (unknown) NECK: Trachea (units ( unknown) date) midline. Non tender unknown) (unknown) (no (unknown) (unknown) NEURO: Cranial (units (unknown) date) nerves 2-12 grossly unknown) intact (unknown) (no (unknown) (unknown) NEUROLOGIC: Denies (units (unknown) date) weakness, headache, unknown) numbness, change in speech, confusion, (unknown) (no (unknown) (unknown) Narrative (units (unkn own) date) unknown) (unknown) (no (unknown) (unknown) Narrative: (units (unk nown) date) unknown) (unknown) (no (unknown) (unknown) New (units (unkno wn) date) unknown) (unknown) (no (unknown) (unknown) Jd Baker (units ( unknown) date) unknown) (unknown) (no (unknown) (unknown) No Action (units (unkn own) date) unknown) (unknown) (no (unknown) (unknown) No scleral (units (unk nown) date) icterus. No unknown) injection or drainage. (unknown) (no (unknown) (unknown) Noncontrast 4.5 mm (units (unknown) date) thick angled axial unknown) sections acquired from the foramen magnum (unknown) (no (unknown) (unknown) Ordered: (units (unkno wn) date) unknown) (unknown) (no (unknown) (unknown) Ordering Provider: (units (unknown) date) Ian Cruz D.O. unknown) (unknown) (no (unknown) (unknown) Orders (units (unkno wn) date) unknown) (unknown) (no (unknown) (unknown) Osteoarthritis (units (unknown) date) unknown) (unknown) (no (unknown) (unknown) Oxygen Delivery (units (unknown) date) Method Room Air unknown) (unknown) (no (unknown) (unknown) PROCEDURE:? CT (units (unknown) date) HEAD/BRAIN WO CON unknown) (unknown) (no (unknown) (unknown) PSYCHIATRIC: No (units (unknown) date) concerning unknown) psychosocial issues. (unknown) (no (unknown) (unknown) Patient (units (unkno wn) date) Disposition: Home unknown) (unknown) (no (unknown) (unknown) Patient History (units (unknown) date) unknown) (unknown) (no (unknown) (unknown) Patient was (units (un known) date) thought to be unknown) disruptive and potentially a risk to other patients (unknown) (no (unknown) (unknown) Patient: (units (unkno wn) date) Kamryn Danielle unknown) MR#: M (unknown) (no (unknown) (unknown) Patient: (units (unkno wn) date) Kamryn Danielle unknown) (unknown) (no (unknown) (unknown) Point of care (units ( unknown) date) testing: unknown) (unknown) (no (unknown) (unknown) Prescriptions: (units (unknown) date) unknown) (unknown) (no (unknown) (unknown) Previous Rx's (units ( unknown) date) unknown) (unknown) (no (unknown) (unknown) Procedure: CT (units ( unknown) date) head/brain wo con unknown) (unknown) (no (unknown) (unknown) Pulse Oximetry 98 (units (unknown) date) unknown) (unknown) (no (unknown) (unknown) Pulse Rate 75 (units ( unknown) date) unknown) (unknown) (no (unknown) (unknown) Quetiapine (units (unk nown) date) Fumarate unknown) (Quetiapine 25 Mg Tablet) 50 mg PO NOW ONE (unknown) (no (unknown) (unknown) RESPIRATORY: Clear (units (unknown) date) to auscultation. unknown) Breath sounds equal bilaterally. No wheezes, (unknown) (no (unknown) (unknown) RESPIRATORY: (units (u nknown) date) Denies dyspnea, unknown) cough, wheezing, hemoptysis, sputum. (unknown) (no (unknown) (unknown) Radiologist's (units ( unknown) date) Impression: unknown) (unknown) (no (unknown) (unknown) Referrals: (units (unk nown) date) unknown) (unknown) (no (unknown) (unknown) Related Data (units (u nknown) date) unknown) (unknown) (no (unknown) (unknown) Resource line at (units (unknown) date) [phone]. They unknown) will ask some questions about your medical (unknown) (no (unknown) (unknown) Respiratory Rate (units (unknown) date) 16 unknown) (unknown) (no (unknown) (unknown) Review of Systems (units (unknown) date) unknown) (unknown) (no (unknown) (unknown) Jefry Deleon MD (units (unknown) date) [Primary Care unknown) Provider] (unknown) (no (unknown) (unknown) SKIN: Denies rash, (units (unknown) date) skin lesions, or unknown) other (unknown) (no (unknown) (unknown) SKIN: No rash or (units (unknown) date) erythema of visible unknown) areas (unknown) (no (unknown) (unknown) SWELLING (units (unkno wn) date) unknown) (unknown) (no (unknown) (unknown) She denies any (units (unknown) date) headache or blurred unknown) vision. She has no chest pain or shortness (unknown) (no (unknown) (unknown) Signed By: (units (unk nown) date) unknown) (unknown) (no (unknown) (unknown) Signed (units (unkno wn) date) unknown) (unknown) (no (unknown) (unknown) Sinuses:? (units (unkn own) date) Visualized sinuses unknown) and mastoids are clear.? (unknown) (no (unknown) (unknown) Skull and face:? (units (unknown) date) Calvarium and unknown) visualized facial bones appear intact, without (unknown) (no (unknown) (unknown) Social History (units (unknown) date) (Reviewed 02/26/22 unknown) @ 05:11 by Ian Cruz DO) (unknown) (no (unknown) (unknown) Stated complaint: (units (unknown) date) neck back unknown) pain/altercation with [facility] staff (unknown) (no (unknown) (unknown) Stop: 02/25/22 (units (unknown) date) 18:26 unknown) (unknown) (no (unknown) (unknown) Stop: 02/26/22 (units (unknown) date) 01:01 unknown) (unknown) (no (unknown) (unknown) Surgical History (units (unknown) date) (Reviewed 02/26/22 unknown) @ 05:11 by Ian Cruz DO) (unknown) (no (unknown) (unknown) TECHNIQUE:? (units (un known) date) unknown) (unknown) (no (unknown) (unknown) Time Seen by (units (u nknown) date) Provider: 02/25/22 unknown) 18:06 (unknown) (no (unknown) (unknown) Ur Squamous Epith (units (unknown) date) Cells 1-5 /hpf unknown) (0-5/HPF) (unknown) (no (unknown) (unknown) Urinary (units (unkno wn) date) incontinence unknown) (unknown) (no (unknown) (unknown) Urine Bacteria (units (unknown) date) Many (>30) H (None) unknown) (unknown) (no (unknown) (unknown) Urine Culture Stat (units (unknown) date) unknown) (unknown) (no (unknown) (unknown) Urine Dip (units (unkn own) date) unknown) (unknown) (no (unknown) (unknown) Urine Microscopic (units (unknown) date) Stat unknown) (unknown) (no (unknown) (unknown) Urine RBC None (units (unknown) date) seen (0-5/HPF) unknown) (unknown) (no (unknown) (unknown) Urine Specific (units (unknown) date) Enigma 1.05 unknown) (unknown) (no (unknown) (unknown) Urine WBC (units (unkn own) date) 30-100/hpf H unknown) (0-5/HPF) (unknown) (no (unknown) (unknown) Visit Report (units (u nknown) date) Forms: Patient unknown) Portal/API (unknown) (no (unknown) (unknown) Vital Signs - 8 hr (units (unknown) date) unknown) (unknown) (no (unknown) (unknown) Vital Signs (units (un known) date) unknown) (unknown) (no (unknown) (unknown) Vital signs: (units (u nknown) date) unknown) (unknown) (no (unknown) (unknown) [employer] magana (units (u nknown) date) unknown) (unknown) (no (unknown) (unknown) [ ] New medication (units (unknown) date) prescriptions sent unknown) to your pharmacy: [ ] (unknown) (no (unknown) (unknown) [ ] No new (units (unk nown) date) medications given unknown) (unknown) (no (unknown) (unknown) [x ] New (units (unkno wn) date) medication written unknown) as a paper prescription (unknown) (no (unknown) (unknown) age, with (units (unkn own) date) unknown) (unknown) (no (unknown) (unknown) and staff so was (units (unknown) date) sent here for unknown) evaluation. Patient has no symptoms and though (unknown) (no (unknown) (unknown) appointment. Let (units (unknown) date) them know you were unknown) seen in the Emergency Department and that we (unknown) (no (unknown) (unknown) artery (units (unkno wn) date) atherosclerosis.? unknown) (unknown) (no (unknown) (unknown) ask that you be (units (unknown) date) seen in follow up. unknown) We will electronically transmit a record of (unknown) (no (unknown) (unknown) at some of the (units ( unknown) date) staff at her home unknown) and was becoming verbally abusive and agitated. (unknown) (no (unknown) (unknown) carotid (units (unkno wn) date) unknown) (unknown) (no (unknown) (unknown) cephalexin 500 mg (units (unknown) date) capsule 500 mg PO unknown) BID #10 caps 02/26/22 (unknown) (no (unknown) (unknown) cephalexin 500 mg (units (unknown) date) capsule unknown) (unknown) (no (unknown) (unknown) clopidogrel 75 mg (units (unknown) date) tablet (Plavix) 75 unknown) mg PO QDAY ##0 08/06/16 (unknown) (no (unknown) (unknown) clopidogrel (units (un known) date) [Plavix] 75 MG unknown) tablet (unknown) (no (unknown) (unknown) codeine [CODEINE] (units (unknown) date) Allergy Severe ORAL unknown) Verified 01/09/22 14:22 (unknown) (no (unknown) (unknown) concerning (units (unk nown) date) symptoms unknown) (unknown) (no (unknown) (unknown) consciousness (units ( unknown) date) unknown) (unknown) (no (unknown) (unknown) constipation, (units ( unknown) date) melena. unknown) (unknown) (no (unknown) (unknown) diarrhea. She (units ( unknown) date) denies any urinary unknown) complaints. She admits that she had a fall a (unknown) (no (unknown) (unknown) dizziness. (units (unk nown) date) unknown) (unknown) (no (unknown) (unknown) evidence of (units (un known) date) fracture or unknown) bleeding is noted] (unknown) (no (unknown) (unknown) few days ago and (units (unknown) date) struck the left unknown) side of her face but denies loss of (unknown) (no (unknown) (unknown) fibrillation on (units (unknown) date) Plavix presents unknown) from a local rehab facility for evaluation. Per (unknown) (no (unknown) (unknown) following (units (unkn own) date) unknown) (unknown) (no (unknown) (unknown) glimepiride 2 mg (units (unknown) date) tablet (Amaryl) 2 unknown) mg PO BID ##0 08/20/16 (unknown) (no (unknown) (unknown) glimepiride (units (un known) date) [Amaryl] 2 MG unknown) tablet (unknown) (no (unknown) (unknown) history and help (units (unknown) date) get you set up with unknown) a doctor in the community. (unknown) (no (unknown) (unknown) hydrocodone 5 (units ( unknown) date) mg-acetaminophen unknown) 325 1 tab PO Q4HP PRN #30 tabs 08/21/16 (unknown) (no (unknown) (unknown) hydrocodone-acetam (units (unknown) date) inophen [[place]] 5 unknown) MG/325 MG tablet (unknown) (no (unknown) (unknown) lesions.? (units (unkn own) date) unknown) (unknown) (no (unknown) (unknown) lives (units (unkno wn) date) independently: Yes unknown) (unknown) (no (unknown) (unknown) marital status: (units (unknown) date) unknown) (unknown) (no (unknown) (unknown) matter chronic (units (unknown) date) small vessel unknown) ischemic changes.? There is intracranial internal (unknown) (no (unknown) (unknown) mg tablet ([place]) (units (unknown) date) unknown) (unknown) (no (unknown) (unknown) mild distress. GCS (units (unknown) date) 14 (pleasantly unknown) confused) (unknown) (no (unknown) (unknown) of breath. She is (units (unknown) date) had no fever or unknown) chills. She denies nausea, vomiting or (unknown) (no (unknown) (unknown) patient (units (unkno wn) date) unknown) (unknown) (no (unknown) (unknown) rales, or rhonchi. (units (unknown) date) unknown) (unknown) (no (unknown) (unknown) resultant (units (unkno wn) date) ventricular and unknown) sulcal prominence.? There are periventricular and deep (unknown) (no (unknown) (unknown) seizures, (units (unkn own) date) incoordination. unknown) (unknown) (no (unknown) (unknown) she is pleasantly (units (unknown) date) confused this is unknown) apparently not a departure from her baseline. (unknown) (no (unknown) (unknown) shrimp [SHRIMP] (units (unknown) date) AdvReac unknown) Intermediate VOMITING Verified 01/09/22 14:22 (unknown) (no (unknown) (unknown) size.? (units (unkno wn) date) unknown) (unknown) (no (unknown) (unknown) skull fracture (units (unknown) date) unknown) (unknown) (no (unknown) (unknown) suspicious (units (unk nown) date) unknown) (unknown) (no (unknown) (unknown) the nursing report (units (unknown) date) through paramedics unknown) patient has had increasing episodes of (unknown) (no (unknown) (unknown) to the (units (unkno wn) date) unknown) (unknown) (no (unknown) (unknown) today's note if (units (unknown) date) your PCP is in our unknown) system (unknown) (no (unknown) (unknown) tonsillar (units (unkn own) date) hypertrophy or unknown) exudate. Airway patent. (unknown) (no (unknown) (unknown) ventricles are (units (unknown) date) symmetric in size unknown) and shape.? (unknown) (no (unknown) (unknown) vertex, with (units (u nknown) date) coronal and unknown) sagittal reformats.? For radiation dose reduction, the (unknown) (no (unknown) (unknown) was used:? (units (unk nown) date) automated exposure unknown) control, adjustment of mA and/or kV according to (unknown) (no (unknown) (unknown) what sounds like (units (unknown) date) sundowning for some unknown) time and this evening she became agitated (unknown) (no (unknown) (unknown) white (units (unkno wn) date) unknown) Result panel 70 (unknown) (no (unknown) (unknown) >100,000 cfu/ml (unkno wn) date) (unknown) (no (unknown) (unknown) GNBGram negative (units (unknown) date) bacilli unknown) (unknown) (no (unknown) (unknown) Identification (units (unknown) date) and Sensitivity to unknown) Follow Result panel 71 (unknown) (no (unknown) (unknown) >100,000 cfu/ml (unkno wn) date)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
[2022-04-09 15:35] LABS: BASOPHILS % (AUTO) 0.6 %; EOSINOPHILS # (AUTO) 0.2 10^3/uL (0.0-0.7); EOSINOPHILS % (AUTO) 2.3 %; HCT - HEMATOCRIT 39.7 % (37.0-47.0); HGB - HEMOGLOBIN 12.6 g/dL (12.0-16.0); LYMPHOCYTES # (AUTO) 0.8 10^3/uL (1.5-3.5); LYMPHOCYTES % (AUTO) 12.6 %; MEAN CORPUSCULAR HEMOGLOBIN 30.2 pg (27.0-31.0); MEAN CORPUSCULAR HGB CONC 31.7 g/dL (32.0-36.0); MEAN CORPUSCULAR VOLUME 95.2 fL (81.0-99.0); MEAN PLATELET VOLUME 9.6 fL (7.9-10.8); MONOCYTES # (AUTO) 0.5 10^3/uL (0.0-1.0); MONOCYTES % (AUTO) 6.8 %; NEUTROPHILS # (AUTO) 5.1 10^3/uL (1.5-6.6); NEUTROPHILS % (AUTO) 77.2 %; PLT - PLATELET COUNT 227 10^3/uL (130-450); RED BLOOD COUNT 4.17 10^6/uL (4.20-5.40); RED CELL DISTRIBUTION WIDTH 14.9 % (12.0-15.0); WHITE BLOOD COUNT 6.6 x10^3/uL (4.8-10.8)
[2022-04-09 15:49] LABS: ALBUMIN 3.5 g/dL (3.2-5.5); BILIRUBIN,TOTAL 1.1 mg/dL (0.2-1.0); CALCIUM 8.9 mg/dL (8.5-10.3); CREATININE 1.2 mg/dL (0.4-1.0); POTASSIUM 3.2 mmol/L (3.5-5.0); TOTAL PROTEIN 7.1 g/dL (6.7-8.2)
[2022-04-09] MEDS ORDERED: POTASSIUM CHLORIDE 20 MEQ TABLET PO STA (17:24)
--- NOTE | 2022-04-09 18:11 | ED Physician Documentation ---
History of Present Illness - Stated complaint Stated Complaint: GLF - Chief complaint Chief Complaint: Neuro - History obtained from History obtained from: Patient, EMS - Additonal information Additional information: The patient is brought to the emergency department by EMS for chief complaint of ground-level fall. She states that she went to get up to go to the bathroom when she suddenly became weak and faint. She was able to catch herself and just lowered herself gently to the ground. Her helped her also. Patient states she did not ever lose consciousness. She remembers the entire episode and did not hit her head. She actually denies any pain anywhere. No spinal pain. No rib pain or difficulty breathing. No abdominal pain or hip/pelvic pain. No extremity pain. No visual changes. The patient was not specifically weak in a localized fashion. She states that once she was able to get that down, she felt better. However, the medics note that they were originally called for a lift assist, but when they tried to get the patient up, as soon as she was in the upright position she became faint and weak and had to be put back down immediately. At that point, they felt she should be transferred ported to the emergency department. She was noted at that time to become hypotensive and tachycardic, whereas she had had normal vital signs. The patient does admit that she really has not been drinking much in the way of fluids. She was recently discharged from a rehab facility after recovering from a spinal injury. She has not on any pain medications at this time. states it was a little worrisome to him that after she nearly fainted, the patient seemed "out of it" and that she did not answer questions for About a minute. Review of Systems Constitutional: reports: Reviewed and negative Eyes: reports: Reviewed and negative Ears: reports: Reviewed and negative Nose: reports: Reviewed and negative Throat: reports: Reviewed and negative Cardiac: reports: Reviewed and negative Respiratory: reports: Reviewed and negative GI: reports: Reviewed and negative : reports: Reviewed and negative Skin: reports: Reviewed and negative Musculoskeletal: reports: Reviewed and negative Neurologic: reports: Generalized weakness, Near syncope Psychiatric: reports: Reviewed and negative Endocrine: reports: Reviewed and negative Immunocompromised: reports: Reviewed and negative PD PAST MEDICAL HISTORY - Past Medical History Cardiovascular: Hypertension, High cholesterol, Coronary artery disease, Peripheral Vascular Disease, Atrial fibrillation Respiratory: None Neuro: Dementia, Other Endocrine/Autoimmune: Type 2 diabetes GI: GERD, Colon polyps, Chronic constipation 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: Breast cancer : 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 HEENT: None Psych: None Musculoskeletal: Osteoarthritis Derm: None - Past Surgical History Past Surgical History: Yes General: Colonoscopy, EGD Ortho: Hip replacement, Spine surgery /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: Hysterectomy, Other HEENT: Cataracts - Present Medications Home Medications: Ambulatory Orders Medication Instructions Recorded Confirmed Terazosin [Hytrin] 5 mg PO BID 08/11/12 01/07/22 Multivitamin [Multivitamins] 1 each PO DAILY 10/06/12 01/07/22 Potassium Chloride [Micro-K] 20 meq PO BIDWM 10/06/12 01/07/22 Oxybutynin Chloride [Ditropan Xl] 15 mg PO DAILY PM 10/23/17 01/07/22 Apixaban [Eliquis] 5 mg BID 02/22/19 01/07/22 metFORMIN [Glucophage] 250 mg PO BID 02/22/19 01/07/22 Furosemide [Lasix] 40 mg PO DAILY #10 tablet 07/02/19 01/07/22 Ferrous Gluconate [Iron] 240 mg PO DAILY 11/24/19 01/07/22 Atorvastatin [Lipitor] 20 mg PO DAILY PM 06/20/20 01/07/22 Carvedilol [Coreg] 25 mg PO BID 06/20/20 01/07/22 Levothyroxine Sodium [Synthroid] 175 mcg PO QDAC 06/20/20 01/07/22 Losartan Potassium [Cozaar] 100 mg PO DAILY PM 06/20/20 01/07/22 Amox/Clav 875/125 [Augmentin] 1 each PO Q12H #14 tablet 06/22/20 01/07/22 Magnesium Oxide [Mag Ox] 400 mg PO DAILY #10 tablet 12/04/20 01/07/22 Potassium Chloride [Micro-K] 10 meq PO BIDWM 10 Days #20 12/04/20 01/07/22 Acetaminophen [Acetaminophen Extra 500 mg PO QID PRN #50 tablet 12/12/2112/28 Strength] Ondansetron Odt [Zofran] 4 mg TL Q6H PRN #10 tablet 12/12/21 01/07/22 oxyCODONE [Roxicodone] 5 mg PO Q4-6H PRN #15 tablet 12/12/21 01/07/22 Amox/Clav 875/125 [Augmentin] 1 each PO Q12H #14 tablet 12/26/21 01/07/22 Doxycycline Hyclate 100 mg PO BID #14 tab 12/26/21 01/07/22 - Allergies Allergies/Adverse Reactions: Allergies Allergy/AdvReac Type Severity Reaction Status Date / Time codeine [Codeine] Allergy Unknown Rash Verified 04/09/22 15:30 GLORIA Inhibitors Allergy Unknown Verified 04/09/22 15:30 iodine Allergy Unknown Verified 04/09/22 15:30 tramadol Allergy Unknown Verified 04/09/22 15:30 shellfish derived AdvReac Unknown Unknown Verified 04/09/22 15:30 Calcium Channel Blocking AdvReac Edema Verified 04/09/22 15:30 Agents-Dih - Social History Does the pt smoke?: No Smoking Status: Never smoker Does the pt drink ETOH?: No Does the pt have substance abuse?: No - Immunizations Immunizations are current?: Yes - POLST Patient has POLST: No POLST Status: Full Code PD ED PE NORMAL - Vitals Vital signs reviewed: Yes - General General: No acute distress, Well developed/nourished, Other (The patient is alert and grossly oriented.) - HEENT HEENT: Atraumatic, PERRL, EOMI, Moist mucous membranes - Neck Neck: Supple, no meningeal sign, No bony TTP - Cardiac Cardiac: RRR, No murmur, Strong equal pulses - Respiratory Respiratory: No respiratory distress, Clear bilaterally - Abdomen Abdomen: Soft, Non tender, Non distended - Derm Derm: Normal color, Warm and dry, No rash - Extremities Extremities: No deformity, No edema - Neuro Neuro: Other (No focal deficits. Patient is alert and appropriate.) - Psych Psych: Normal mood, Normal affect Results - Vitals Vitals: Vital Signs - 24 hr 04/09/22 04/09/22 04/09/22 15:21 15:42 16:28 Temperature 36.2 C L Heart Rate 107 H 92 102 H Respiratory 12 14 18 Rate Blood Pressure 150/94 H 163/87 H 168/102 H O2 Saturation 98 99 100 04/09/22 04/09/22 04/09/22 16:30 17:00 17:30 Temperature Heart Rate 108 H 103 H 114 H Respiratory 18 20 Rate Blood Pressure 153/132 H 184/136 H O2 Saturation 100 95 98 Oxygen O2 Source [With Activity] Nasal cannula O2 Source [Without Activity] Room air O2 Source Room air - Labs Labs: Laboratory Tests 04/09/22 04/09/22 15:25 15:25 WBC 6.6 RBC 4.17 L Hgb 12.6 Hct 39.7 MCV 95.2 MCH 30.2 MCHC 31.7 L RDW 14.9 Plt Count 227 MPV 9.6 Neut # (Auto) 5.1 Lymph # (Auto) 0.8 L [place] # (Auto) 0.5 Eos # (Auto) 0.2 Baso # (Auto) 0.0 Absolute Nucleated RBC 0.00 Nucleated RBC % 0.0 Sodium 137 Potassium 3.2 L Chloride 96 L Carbon Dioxide 30 Anion Gap 11.0 BUN 22 H Creatinine 1.2 H Estimated GFR (MDRD) 43 L Glucose 153 H Calcium 8.9 Total Bilirubin 1.1 H AST 14 ALT 10 Alkaline Phosphatase 99 Total Protein 7.1 Albumin 3.5 Globulin 3.6 Albumin/Globulin Ratio 1.0 Lipase 31 PD Medical Decision Making - ED course Complexity details: reviewed results, re-evaluated patient, considered differential, d/w patient, d/w family ED course: The patient was given a liter 0.9 normal saline. She remembers the entire event and could very definitely states she did not hit her head. Additionally, there was no sign whatsoever of head trauma. I did not feel the patient needed a CT scan of the head, as such. The patient was worked up with laboratory studies, which showed mild hypokalemia and for this, the patient was given a dose of K. Dur 20 mEq. The patient reported feeling much better and ambulated without difficulty in the emergency twice. I felt she was stable for discharge home. We have discussed the usual indications for return. We have discussed that the patient needs to drink 6 to 8 cups of water every day at home and that any other drink should be outside of this. Departure - Departure Disposition: 01 Home, Self Care Clinical Impression: Dehydration, Near syncope, Hypokalemia Condition: Stable Instructions: Hypokalemia Dc, ED Dehydration, ED Near Syncope Vasovagal Comments: Your labs show low potassium today, for which you have been treated. Your kidney labs and vital signs are indicative of dehydration. You have been treated with a full liter of IV fluids to help rehydrate you, and you are doing much better. Please be sure you drink 6 to 8 cups of water each day. This should be in addition to any other liquids you are drinking. Please follow-up with your primary doctor for further concerns.
[2022-04-09 18:51] VITALS: BP 153/92
== END 2022-04-09 18:51 | disposition home or self-care (01) ==
LOC: EDUNIT# → ED 15:11
DX: R55 Syncope and collapse (principal); E86.0 Dehydration; E87.6 Hypokalemia
CPT/HCPCS: 36415; 80053; 83690; 85025; 96360; 99283; 99284; A9270

== ENCOUNTER 2022-04-09 20:31 | Outpatient (CLI) | payer MEDICARE, OTHER | END 2022-04-09 20:32 | disposition critical access hospital (66) | LOC: EMS 20:31 | DX: I95.1 Orthostatic hypotension (principal) | CPT/HCPCS: A0425; A0429 ==

== ENCOUNTER 2022-04-09 20:47 | Emergency (ER) | payer MEDICARE, OTHER ==
--- NOTE | 2022-04-09 20:58 | ED Physician Documentation ---
PD HPI SYNCOPE - Stated complaint Stated Complaint: SYNCOPE - History obtained from History obtained from: Patient, Family (Her arrives in the ER and we discussed her recent diet and medications. She had been in rehab eating 3 times a day and now is just once. She also had resumed prior prescriptions that she had not been getting in rehab.), EMS (Independent information from the medic they found her in a sitting position slumped over in poor interaction. She had adequate respirations. However blood pressure was low 70s systolic. It improved as they laid her flat and she perked up.) - History of Present Illness Witnessed: Witnessed (by ) Timing - onset: Today, Yesterday (had near syncope yesterday and then did faint earlier today. Was seen in ER and given IV fluids with basic labs. [place] to be underhydrated. Was feeling better after some IV fluids. 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 says she was pale.) Preceding symptoms: Light headed, Generalized weakness. No: Headache, Chest pain, Abdominal pain Associated symptoms: Headache (mild) Contributing factors: Recent med change (she had resumed some of her prior BP meds 3 days ago, that she had been off of for the past several weeks.), Decreased PO intake (eating 1 larger meal daily rather than 3 meals per day as she had been doing at Rehab.) Injury occurred: Fell (slumped to the floor from toilet seat. Denies hitting head. But is on anticoagulant.) Treatment [facility]REL CENTER[facility]: Fluids Recently seen: Emergency Dept (earlier today for similar symptoms.) Review of Systems Constitutional: denies: Fever, Chills Nose: denies: Rhinorrhea / runny nose, Congestion Throat: denies: Sore throat Cardiac: reports: Pedal edema (mild chronic). denies: Chest pain / pressure, Palpitations, Calf pain Respiratory: denies: Dyspnea, Cough GI: denies: Abdominal Pain Skin: denies: Abrasion (s), Laceration (s) Neurologic: reports: Generalized weakness, Syncope. 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 : 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 HEENT: None Psych: None Musculoskeletal: Osteoarthritis Derm: None - Past Surgical History Past Surgical History: Yes General: Colonoscopy, EGD Ortho: Hip replacement, Spine surgery /PALLIATIVE SENIOR NP: Hysterectomy, Other HEENT: Cataracts - Present Medications Home Medications: Ambulatory Orders Medication Instructions Recorded Confirmed Terazosin [Hytrin] 5 mg PO BID 08/11/12 01/07/22 Multivitamin [Multivitamins] 1 each PO DAILY 10/06/12 01/07/22 Potassium Chloride [Micro-K] 20 meq PO BIDWM 10/06/12 01/07/22 Oxybutynin Chloride [Ditropan Xl] 15 mg PO DAILY PM 10/23/17 01/07/22 Apixaban [Eliquis] 5 mg BID 02/22/19 01/07/22 metFORMIN [Glucophage] 250 mg PO BID 02/22/19 01/07/22 Furosemide [Lasix] 40 mg PO DAILY #10 tablet 07/02/19 01/07/22 Ferrous Gluconate [Iron] 240 mg PO DAILY 11/24/19 01/07/22 Atorvastatin [Lipitor] 20 mg PO DAILY PM 06/20/20 01/07/22 Carvedilol [Coreg] 25 mg PO BID 06/20/20 01/07/22 Levothyroxine Sodium [Synthroid] 175 mcg PO QDAC 06/20/20 01/07/22 Losartan Potassium [Cozaar] 100 mg PO DAILY PM 06/20/20 01/07/22 Amox/Clav 875/125 [Augmentin] 1 each PO Q12H #14 tablet 06/22/20 01/07/22 Magnesium Oxide [Mag Ox] 400 mg PO DAILY #10 tablet 12/04/20 01/07/22 Potassium Chloride [Micro-K] 10 meq PO BIDWM 10 Days #20 12/04/20 01/07/22 Acetaminophen [Acetaminophen Extra 500 mg PO QID PRN #50 tablet 12/12/21 01/07/22 Strength] Ondansetron Odt [Zofran] 4 mg TL Q6H PRN #10 tablet 12/12/21 01/07/22 oxyCODONE [Roxicodone] 5 mg PO Q4-6H PRN #15 tablet 12/12/21 01/07/22 Amox/Clav 875/125 [Augmentin] 1 each PO Q12H #14 tablet 12/26/21 01/07/22 Doxycycline Hyclate 100 mg PO BID #14 tab 12/26/21 01/07/22 - Allergies Allergies/Adverse Reactions: Allergies Allergy/AdvReac Type Severity Reaction Status Date / Time codeine [Codeine] Allergy Unknown Rash Verified 04/09/22 15:30 GLORIA Inhibitors Allergy Unknown Verified 04/09/22 15:30 iodine Allergy Unknown Verified 04/09/22 15:30 tramadol Allergy Unknown Verified 04/09/22 15:30 shellfish derived AdvReac Unknown Unknown Verified 04/09/22 15:30 Calcium Channel Blocking AdvReac Edema Verified 04/09/22 15:30 Agents-Dih - Social History Does the pt smoke?: No Smoking Status: Never smoker Does the pt drink ETOH?: No Does the pt have substance abuse?: No - Immunizations Immunizations are current?: Yes - POLST Patient has POLST: No POLST Status: Full Code PD ED PE NORMAL - Vitals Vital signs reviewed: Yes - General General: Alert and oriented X 3, No acute distress, Well developed/nourished - HEENT HEENT: Atraumatic, Moist mucous membranes, Pharynx benign - Neck Neck: Supple, no meningeal sign, No adenopathy - Cardiac Cardiac: No murmur. No: RRR (irregular and mild tachycardic) - Respiratory Respiratory: No respiratory distress, Clear bilaterally - Abdomen Abdomen: Soft, Non tender - Derm Derm: Normal color, Warm and dry - Extremities Extremities: No tenderness to palpate, Normal ROM s pain, No calf tenderness / cord, Other (minimal ankle edema in both legs. ) - Neuro Neuro: Alert and oriented X 3, No motor deficit, Normal speech Eye Opening: Spontaneous Motor: Obeys Commands Verbal: Oriented GCS Score: 15 Results - Vitals Vitals: Vital Signs - 24 hr 04/09/22 04/09/22 04/09/22 20:53 21:49 23:06 Temperature 37.2 C Heart Rate 110 H 110 H 100 Respiratory 19 18 13 Rate Blood Pressure 143/82 H 159/76 H 147/84 H O2 Saturation 97 94 98 04/09/22 23:34 Temperature Heart Rate 90 Respiratory 17 Rate Blood Pressure 147/84 H O2 Saturation 100 Oxygen O2 Source [With Activity] Nasal cannula O2 Source [Without Activity] Room air O2 Source Room air - EKG (time done) 21:07 Rate: Rate (enter#) (108) Rhythm: Atrial fibrillation, Other (lots of baseline artifact/movement. ) Intervals: RBBB Ischemia: Non specific changes Compare to prior EKG: Unchanged from prior EKG - Labs Labs: Laboratory Tests 04/09/22 04/09/22 21:20 21:20 Sodium 139 Potassium 3.4 L Chloride 98 L Carbon Dioxide 30 Anion Gap 11.0 BUN 22 H Creatinine 1.3 H Estimated GFR (MDRD) 39 L Glucose 182 H Calcium 8.9 Magnesium 1.4 L TSH 2.77 - Rads (name of study) head CT Radiology: Prelim report reviewed, EMP read indepedently (no ICH), See rad report PD Medical Decision Making - ED course Complexity details: reviewed old records (Review of external pharmacy list through [facility] showed prescriptions for the last 3 months. It did not include the losartan nor torsemide though the patient does get some of her prescriptions from the [facility] and that would not be listed there.), d/w patient Reviewed Lab Results: potassium improved to 3.4 and Mag is low at 1.4, presume from diuretic use. Social Determinants of Health: The patient states she lives with her . They do have family members in the area that provide care as well and home health. Her recently had a stroke and is functioning pretty well but does use a wheeled walker. The patient states they have been provided meals by family members and they are able to access them in the refrigerator and also maintain adequate fluids. I think a peres part of her symptoms yesterday and today relate to medications and diet. Her states that at the rehab place they had 3 meals a day in good fluids. Since being back home she and her really only 1 main meal a day and the patient does not have any other foods the rest. They do feel its adequate calorie intake but has not spread through the day. Also her 's dates she had come home from rehab with a shorter medication list then she had had prior. In the last 2 to 3 days her had resumed her on the complete medication list she had had from Dr. Castillo prior to hospitalization. This included adding back torsemide and losartan. It is unclear if terazosin is still in the medicine list as that supposedly had been discontinued back in December. That would need to be verified. Drug Therapy Requiring Monitoring for Toxicity: The patient's medications are put into a daily meal exercise planner med exercise planner and her is not sure which ones necessarily are which. He does have the primary prescription bottles though. We discussed him not giving the complete set of medicines tonight but instead just taking individual pills from the bottles and only giving the Eliquis, carvedilol, potassium supplement and her insulins for tonight. We can allow Dr. Castillo to decide medication adjustments when they see him tomorrow. I would assume decreasing or stopping the losartan and or torsemide and verifying terazosin is still not on the list. ED course: The patient had had labs done earlier in the day. Potassium had been low at 3.2 and given an extra oral dose. I thought to recheck that and it is now 3.4 so improved. Magnesium was low at 1.4 and had not been checked earlier. She will be given an extra magnesium here in the ER this evening. Presumably will want t o add a magnesium supplement. The patient had slumped to the floor and unclear the degree of impact. She is on blood thinner so we did get a CT of the head which did not show any intracranial bleeding. I believe the patient's symptoms today and yesterday relate to an over effect of medication they had resumed the last 2 or 3 days that likely had been removed from her list and rehab on purpose. Departure - Departure Disposition: 01 Home, Self Care Clinical Impression: Postural hypotension, Syncope and collapse, Hypokalemia, Hypomagnesemia Atrial fibrillation Qualifiers: Atrial fibrillation type: unspecified chronic Qualified Code(s): I48.20 - Chronic atrial fibrillation, unspecified Condition: Stable Record reviewed to determine appropriate education?: Yes Follow-Up: Elijah Gee MD [Provider Admit Priv/Credential] - Comments: For tonight, I would have you hold your medications that are already put into t he daily dose vents or box. Instead just use the prescription bottles to take only a few of the medicines. I would want you to take this evening: apixaban (Eliquis) blood thinner and also in the morning Carvedilol tonight and in the morning Potassium supplement You could take your normal insulin. See Dr. Castillo tomorrow as planned. I believe your symptoms relate to your blood pressure medications working too well and they may need to be adjusted down a bit. Defer to Dr. Castillo's judgment but I would likely suggest decreasing or stopping the losartan and torsemide medications and adding a magnesium supplement. Drink adequate fluids and hydration and not too much soda. You can continue with the 1 main meal a day but try to have some snacks also throughout the day. Discharge Date/Time: 04/09/22 23:35
--- OUTSIDE RECORDS SUMMARY | 2022-04-09 21:01 | EXTERNAL MEDICAL SUMMARY RPT | Continuity of Care Document ---
:1940 Author Organization [facility] Address [address] [place] [address] Phone Care Team Providers Name Role Phone Roof, Jefry Unavailable Unavailable Allergies and Intolerances date description [facility] Encounters No information. Functional Status No information. Immunizations No information. Medications date description facility 2022-02-26 00:00 Cephalexin [facility] Problems date description facility 2022-01-09 00:00 Hematoma of [facility] 2022-01-09 00:00 Fracture of fifth cervical vertebra Is [facility] 2022-01-09 00:00 H[facility]oma [facility] right [facility] wall [facility]22-01-15 08:30 Localized swelling, mass and lump, [facility] 2022-02-25 00:00 Contusion of face [facility] 2022-02-26 00:00 Acute urinary tract infection [facility] 2022-03-06 00:00 Dementia [facility] 2022-03-06 00:00 Acute hip pain [facility] 2022-03-06 00:00 Injury of [facility] 2022-03-06 00:00 Fall [facility] Procedures date description facility 2022-01-29 00:00 Ultrasound of soft tissue of head and n jhonatan [facility] 2022-01-09 00:00 Computed tomography of head or brain [facility] contrast 2022-02-25 00:00 Computed tomography of head or brain [facility] contrast 2022-03-06 00:00 Computed tomography of head or brain [facility] contrast 2022-01-09 00:00 X-ray of chest, single view [facility] 2022-01-09 00:00 Computed tomography angiography of [facility] neck vessels with contrast 2022-03-06 00:00 Unilateral x-ray of hip, two views, wit h x-ray [facility] of pelvis Results/Labs test date author facility [...] wn) date) unknown) (unknown) (no (unknown) (unknown) [address] [place] [address] (units (unknown) date) unknown) (unknown) (no (unknown) (unknown) 2021. (units (unkno wn) date) unknown) (unknown) (no (unknown) (unknown) 07/25/2021. (units (unk nown) date) unknown) (unknown) (no (unknown) (unknown) 80-90% narrowing (units (unknown) date) can be seen unknown) involving both proximal internal carotid arteries. (unknown) (no (unknown) (unknown) Accession Number: (units (unknown) date) [id number] unknown) (unknown) (no (unknown) (unknown) Accession Number: (units (unknown) date) [id number] unknown) (unknown) (no (unknown) (unknown) Age/Sex: 81 / F (units (unknown) date) Date of Service: unknown) (unknown) (no (unknown) (unknown) Along the (units (unkn own) date) inferior aspect of unknown) the C5 level, there is a mildly displaced fracture (unknown) (no (unknown) (unknown) [place], [place] (units ( unknown) date) [address] unknown) (unknown) (no (unknown) (unknown) Anatomic variant [...] (unknown) (unknown) COMPARISON: (units (un known) date) [facility], unknown) CT, CT ANGIO HEAD AND NECK, 01/09/2022, 15:03. (unknown) (no (unknown) (unknown) COMPARISON: (units (un known) date) [facility], unknown) CT, CT HEAD/BRAIN WO CON, 01/09/2022, [...] (unknown) (unknown) : 1940 (units (unknown) date) Acct:[id number] unknown) (unknown) (no (unknown) (unknown) Dense (units (unkno wn) date) calcification can unknown) be seen involving the intracranial internal carotid (unknown) (no (unknown) (unknown) Dictated by: (units (u nknown) date) ranjith Goss M.D. on 01/09/2022 at 14:24 (unknown) (no (unknown) (unknown) Dictated by: (units (u nknown) date) rnajith Goss M.D. on 01/09/2022 at 14:26 (unknown) [...] date) Excellent. unknown) (unknown) (no (unknown) (unknown) [facility] (units (unknown) date) unknown) (unknown) (no (unknown) (unknown) Loc: ED (units (unkno wn) date) unknown) (unknown) (no (unknown) (unknown) [id number] (units (unk nown) date) unknown) (unknown) (no [...] telephone with Dr. Kelley at 2:32 p.m. [place] time on (unknown) (no (unknown) (unknown) January [...] wn) date) Ty DanielleKamryn M unknown) MR#: (unknown) (no (unknown) (unknown) [...] (unknown) through the (units (un known) date) [place] [facility] [place]. unknown) Post-contrast 4.5 mm thick [...] wn) date) unknown) (unknown) (no (unknown) (unknown) [address] [place] [address] (units (unknown) date) unknown) (unknown) (no (unknown) (unknown) 2. Cardiac (units (unk nown) date) silhouette is unknown) mildly enlarged and pulmonary vasculature appears (unknown) (no (unknown) (unknown) 3. Nodular (units (unk nown) date) opacities project unknown) over the left mid lung, nonspecific. These could (unknown) (no (unknown) (unknown) Accession (units (unkn own) date) Number: unknown) [id number] (unknown) (no (unknown) (unknown) Age/Sex: 81 / F (units (unknown) date) Date of Service: unknown) (unknown) (no (unknown) (unknown) [place], [place] (units ( unknown) date) [address] unknown) (unknown) (no (unknown) (unknown) Approved by: (units (u nknown) date) ranjith Llamas M.D. on 01/09/2022 at 15:23 (unknown) (no (unknown) (unknown) Bones and chest (units (unknown) date) wall: No unknown) suspicious bony lesions. Overlying soft tissues (unknown) (no (unknown) (unknown) COMPARISON: (units (un known) date) None. unknown) (unknown) (no (unknown) (unknown) : 1940 (units (unknown) date) Acct:[id number] unknown) (unknown) (no (unknown) (unknown) Dictated by: (units (u nknown) date) Jd Baker unknownMarlon Lam on 01/09/2022 at 15:19 (unknown) (no (unknown) (unknown) FINDINGS: (units (unkn own) date) unknown) (unknown) (no (unknown) (unknown) IMPRESSION: (units (un known) date) unknown) (unknown) (no (unknown) (unknown) INDICATIONS: (units (u nknown) date) fall on thinners unknown) (unknown) (no (unknown) (unknown) [facility] (units (unknown) date) unknown) (unknown) (no (unknown) (unknown) Loc: ED (units (unkno wn) date) unknown) (unknown) (no (unknown) (unknown) Lungs and (units (unkn own) date) pleura: Small unknown) right pleural effusion. Mild nonspecific right (unknown) (no (unknown) (unknown) [id number] (units (unk nown) date) unknown) (unknown) (no [...] nown) date) unknown) (unknown) (no (unknown) (unknown) [id number] (units (unkn own) date) unknown) (unknown) (no [...] (unknown) (unknown) : 1940 (units (unknown) date) Acct:[id number] unknown) (unknown) (no (unknown) (unknown) Date of [...] date) Signs: unknown) (unknown) (no (unknown) (unknown) [facility] (units (unknown) date) [address] unknown) [place] [address] (unknown) (no (unknown) (unknown) Medication (units (unk [...] (unknown) hydrocodone-chino (units (unknown) date) taminophen unknown) [Bucyrus] 5 MG/325 MG tablet (unknown) (no (unknown) (unknown) mg tablet (units (unkn own) date) (Bucyrus) unknown) (unknown) (no (unknown) (unknown) shrimp [SHRIMP] [...] date) unknown) (unknown) (no (unknown) (unknown) [address] [place] [address] (units (unknown) date) unknown) (unknown) (no (unknown) (unknown) 2. Severe (units (unkn own) date) degenerative unknown) change, posterior disc osteophyte complexes, and severe (unknown) (no (unknown) (unknown) 3. Extensive (units (u nknown) date) edema throughout unknown) the surrounding paraspinous musculature. (unknown) (no (unknown) (unknown) Accession (units (unkn own) date) Number: unknown) [id number] (unknown) (no (unknown) (unknown) Age/Sex: 81 / F (units (unknown) date) Date of Service: unknown) (unknown) (no (unknown) (unknown) [place] (units ( unknown) date) [address] unknown) (unknown) (no (unknown) (unknown) Approved by: (units (u nknown) date) Edna Alan M.D. unknown) on 01/09/2022 at 16:49 (unknown) (no (unknown) (unknown) COMPARISON: (units (un known) date) [facility], unknown) CT, CT ANGIO HEAD AND NECK, 01/09/2022, 15:03. (unknown) (no (unknown) (unknown) : 1940 (units (unknown) date) Acct:[id number] unknown) (unknown) (no (unknown) (unknown) Dictated by: [...] for unknown) evaluation. (unknown) (no (unknown) (unknown) [facility] (units (unknown) date) unknown) (unknown) (no (unknown) (unknown) [facility] (units (unkno wn) date) unknown) (unknown) (no (unknown) (unknown) Loc: ED (units (unkno wn) date) unknown) (unknown) (no (unknown) (unknown) [id number] (units (unk nown) date) unknown) (unknown) (no [...] date) unknown) (unknown) (no (unknown) (unknown) [address] [place] [address] (units (unknown) date) unknown) (unknown) (no (unknown) (unknown) Abdomen and (units (un known) date) Pelvis: unknown) (unknown) (no (unknown) (unknown) Abdominal wall: (units (unknown) date) Abdominal wall unknown) intact without evidence of ventral or inguinal (unknown) (no (unknown) (unknown) Accession Number: (units (unknown) date) [id number] unknown) (unknown) (no (unknown) (unknown) Additional 7 [...] of Service: unknown) (unknown) (no (unknown) (unknown) [place], [place] (units ( unknown) date) [address] unknown) (unknown) (no (unknown) (unknown) Appendix: No [...] (unknown) (unknown) : 1940 (units (unknown) date) Acct:[id number] unknown) (unknown) (no (unknown) (unknown) FINDINGS: (units (unkn own) date) unknown) (unknown) (no (unknown) (unknown) Gastrointestinal (units (unknown) date) system: The bowel unknown) is unremarkable with no evidence of bowel (unknown) (no (unknown) (unknown) IMPRESSION: (units (un known) date) unknown) (unknown) (no (unknown) (unknown) INDICATIONS: Right (units (unknown) date) upper quadrant unknown) bruising after fall (unknown) (no (unknown) (unknown) [facility] (units (unknown) date) unknown) (unknown) (no [...] unknown) retroperitoneal adenopathy. (unknown) (no (unknown) (unknown) [id number] (units (unk nown) date) unknown) (unknown) (no [...] wn) date) unknown) (unknown) (no (unknown) (unknown) [id number] (units (unkn own) date) unknown) (unknown) (no [...] date) unknown) (unknown) (no (unknown) (unknown) [address] [place] [address] (units (unknown) date) unknown) (unknown) (no (unknown) [...] (unknown) (unknown) Accession Number: (units (unknown) date) [id number] ?? unknown) (unknown) (no (unknown) (unknown) Accession Number: (units (unknown) date) [id number] ?? unknown) (unknown) (no (unknown) (unknown) Accession Number: (units (unknown) date) [id number] ?? unknown) (unknown) (no (unknown) (unknown) Acct:[id number] (units (unknown) date) unknown) (unknown) (no (unknown) [...] mildly displaced fracture (unknown) (no (unknown) (unknown) [place], [place] (units ( unknown) date) [address] unknown) (unknown) (no (unknown) (unknown) Anatomic variant [...] Boris Cardona, unknown) Carole on 01/09/2022 at 14:25?? (unknown) (no (unknown) (unknown) Approved by: (units (u nknown) date) Boris Cardona unknown) MTriston on 01/09/2022 at 14:41? (unknown) [...] (unknown) (unknown) COMPARISON:? (units (u nknown) date) [facility], unknown) CT, CT ANGIO HEAD AND NECK, 01/09/2022, 15:03. (unknown) (no (unknown) (unknown) COMPARISON:? (units (u nknown) date) [facility], unknown) CT, CT HEAD/BRAIN WO CON, 01/09/2022, [...] (unknown) (unknown) : 1940 (units (unknown) date) Acct:[id number] unknown) (unknown) (no (unknown) (unknown) : 1940 [...] Jd Baker, unknown) Carole on 01/09/2022 at 15:19 ? ? (unknown) [...] date) Signs: unknown) (unknown) (no (unknown) (unknown) [facility] (units (unknown) date) [address] unknown) [place] [address] (unknown) (no (unknown) (unknown) [facility] (units (unknown) date) unknown) (unknown) (no [...] (unknown) Lymph # (Auto) (units (unknown) date) (4151-4944) /uL unknown) (unknown) (no (unknown) (unknown) Lymph # (Auto) (units (unknown) date) 800 L (3373-1440) unknown) /uL (unknown) (no (unknown) (unknown) Lymph [...] Stat unknown) (unknown) (no (unknown) (unknown) MR#: [id number] (units (unknown) date) unknown) (unknown) (no (unknown) [...] be seen, with (unknown) (no (unknown) (unknown) [place] # (Auto) (units ( unknown) date) (0-900) /uL unknown) (unknown) (no (unknown) (unknown) [place] # (Auto) 700 (units (unknown) date) (0-900) /uL unknown) (unknown) (no (unknown) (unknown) [place] % (Auto) (units ( unknown) date) (3-14) % unknown) (unknown) (no (unknown) (unknown) [place] % (Auto) 9.5 (units (unknown) date) (3-14) % unknown) (unknown) (no (unknown) (unknown) NECK CT (units (unkno wn) date) ANGIOGRAPHY:? unknown) (unknown) (no (unknown) (unknown) Neut # (Auto) (units ( unknown) date) (8337-2264) /uL unknown) (unknown) (no (unknown) (unknown) Neut # (Auto) (units ( unknown) date) 5700 (6867-7206) unknown) /uL (unknown) (no (unknown) (unknown) Neut [...] (unknown) (unknown) hydrocodone-aceta (units (unknown) date) minophen [Bucyrus] 5 unknown) MG/325 MG tablet (unknown) (no [...] excludable. (unknown) (no (unknown) (unknown) mg tablet (Bucyrus) (units (unknown) date) unknown) (unknown) (no (unknown) [...] (unknown) through the (units (un known) date) [place] [facility] [place] unknown) Post-contrast 4.5 mm thick [...] wn) date) unknown) (unknown) (no (unknown) (unknown) [id number] (units (unkn own) date) unknown) (unknown) (no [...] date) unknown) (unknown) (no (unknown) (unknown) [address] [place] [address] (units (unknown) date) unknown) (unknown) (no (unknown) [...] date) unknown) (unknown) (no (unknown) (unknown) 15:30 10/13/22 (units (unknown) date) unknown) (unknown) (no (unknown) [...] (unknown) (unknown) Accession Number: (units (unknown) date) [id number] ?? unknown) (unknown) (no (unknown) (unknown) Accession Number: (units (unknown) date) [id number] ?? unknown) (unknown) (no (unknown) (unknown) Accession Number: (units (unknown) date) [id number] ?? unknown) (unknown) (no (unknown) (unknown) Accession Number: (units (unknown) date) [id number] ?? unknown) (unknown) (no (unknown) (unknown) Acct:[id number] (units (unknown) date) unknown) (unknown) (no (unknown) [...] mildly displaced fracture (unknown) (no (unknown) (unknown) [place], [place] (units ( unknown) date) [address] unknown) (unknown) (no (unknown) (unknown) Anatomic variant [...] (unknown) (unknown) COMPARISON:? (units (u nknown) date) [facility], unknown) CT, CT ANGIO HEAD AND NECK, 01/09/2022, 15:03. (unknown) (no (unknown) (unknown) COMPARISON:? (units (u nknown) date) [facility], unknown) CT, CT ANGIO HEAD AND NECK, 01/09/2022, 15:03.? (unknown) (no (unknown) (unknown) COMPARISON:? (units (u nknown) date) [facility], unknown) CT, CT HEAD/BRAIN WO CON, 01/09/2022, [...] (unknown) (unknown) : 1940 (units (unknown) date) Acct:[id number] unknown) (unknown) (no (unknown) (unknown) : 1940 [...] (unknown) date) unknown) (unknown) (no (unknown) (unknown) [facility] (units (unknown) date) [address] unknown) [place] [address] (unknown) (no (unknown) (unknown) [facility] (units (unknown) date) unknown) (unknown) (no (unknown) (unknown) [facility] (units (unkno wn) date) unknown) (unknown) (no [...] (unknown) Lymph # (Auto) (units (unknown) date) (1426-0120) /uL unknown) (unknown) (no (unknown) (unknown) Lymph # (Auto) (units (unknown) date) 800 L (0116-3113) unknown) /uL (unknown) (no (unknown) (unknown) Lymph [...] Stat unknown) (unknown) (no (unknown) (unknown) MR#: [id number] (units (unknown) date) unknown) (unknown) (no (unknown) [...] be seen, with (unknown) (no (unknown) (unknown) [place] # (Auto) (units ( unknown) date) (0-900) /uL unknown) (unknown) (no (unknown) (unknown) [place] # (Auto) 700 (units (unknown) date) (0-900) /uL unknown) (unknown) (no (unknown) (unknown) [place] % (Auto) (units ( unknown) date) (3-14) % unknown) (unknown) (no (unknown) (unknown) [place] % (Auto) 9.5 (units (unknown) date) (3-14) % unknown) (unknown) (no (unknown) (unknown) NECK CT (units (unkno wn) date) ANGIOGRAPHY:? unknown) (unknown) (no (unknown) (unknown) Neut # (Auto) (units ( unknown) date) (3607-2660) /uL unknown) (unknown) (no (unknown) (unknown) Neut # (Auto) (units ( unknown) date) 5700 (9742-9136) unknown) /uL (unknown) (no (unknown) (unknown) Neut [...] (unknown) (unknown) hydrocodone-aceta (units (unknown) date) minophen [Bucyrus] 5 unknown) MG/325 MG tablet (unknown) (no [...] excludable. (unknown) (no (unknown) (unknown) mg tablet (Bucyrus) (units (unknown) date) unknown) (unknown) (no (unknown) [...] (unknown) through the (units (un known) date) [place] [facility] [place] unknown) Post-contrast 4.5 mm thick [...] wn) date) unknown) (unknown) (no (unknown) (unknown) [id number] (units (unkn own) date) unknown) (unknown) (no [...] wn) date) unknown) (unknown) (no (unknown) (unknown) [address] [place] [address] (units (unknown) date) unknown) (unknown) (no (unknown) [...] (unknown) (unknown) Accession Number: (units (unknown) date) [id number] ?? unknown) (unknown) (no (unknown) (unknown) Accession Number: (units (unknown) date) [id number] ?? unknown) (unknown) (no (unknown) (unknown) Accession Number: (units (unknown) date) [id number] ?? unknown) (unknown) (no (unknown) (unknown) Accession Number: (units (unknown) date) [id number] ?? unknown) (unknown) (no (unknown) (unknown) Acct:[id number] (units (unknown) date) unknown) (unknown) (no (unknown) [...] mildly displaced fracture (unknown) (no (unknown) (unknown) [place] (units ( unknown) date) [address] unknown) (unknown) (no (unknown) (unknown) Anatomic variant [...] (unknown) (unknown) COMPARISON:? (units (u nknown) date) [facility], unknown) CT, CT ANGIO HEAD AND NECK, 01/09/2022, 15:03. (unknown) (no (unknown) (unknown) COMPARISON:? (units (u nknown) date) [facility], unknown) CT, CT ANGIO HEAD AND NECK, 01/09/2022, 15:03.? (unknown) (no (unknown) (unknown) COMPARISON:? (units (u nknown) date) [facility], unknown) CT, CT HEAD/BRAIN WO CON, 01/09/2022, [...] (unknown) (unknown) : 1940 (units (unknown) date) Acct:[id number] unknown) (unknown) (no (unknown) (unknown) : 1940 [...] move all extremities (unknown) (no (unknown) (unknown) [place] coma scale (units (unknown) date) eye opening: unknown) Spontaneous (unknown) (no (unknown) (unknown) [place] coma scale (units (unknown) date) motor response: unknown) Obey commands (unknown) (no (unknown) (unknown) [place] coma scale (units (unknown) date) total score: 14 unknown) (unknown) (no (unknown) (unknown) [place] coma scale (units (unknown) date) verbal response: [...] (unknown) date) unknown) (unknown) (no (unknown) (unknown) [facility] (units (unknown) date) [address] unknown) [place] [address] (unknown) (no (unknown) (unknown) [facility] (units (unknown) date) unknown) (unknown) (no (unknown) (unknown) [facility] (units (unkno wn) date) unknown) (unknown) (no [...] (unknown) Lymph # (Auto) (units (unknown) date) (1336-3977) /uL unknown) (unknown) (no (unknown) (unknown) Lymph # (Auto) 800 (units (unknown) date) L (0332-9344) /uL unknown) (unknown) (no (unknown) (unknown) Lymph [...] Stat unknown) (unknown) (no (unknown) (unknown) MR#: [id number] (units (unknown) date) unknown) (unknown) (no (unknown) [...] be seen, with (unknown) (no (unknown) (unknown) [place] # (Auto) (units ( unknown) date) (0-900) /uL unknown) (unknown) (no (unknown) (unknown) [place] # (Auto) 700 (units (unknown) date) (0-900) /uL unknown) (unknown) (no (unknown) (unknown) [place] % (Auto) (units ( unknown) date) (3-14) % unknown) (unknown) (no (unknown) (unknown) [place] % (Auto) 9.5 (units (unknown) date) (3-14) [...] Neut # (Auto) (units ( unknown) date) (2292-0037) /uL unknown) (unknown) (no (unknown) (unknown) Neut # (Auto) 5700 (units (unknown) date) (3099-4094) /uL unknown) (unknown) (no (unknown) (unknown) Neut [...] finding was (units (unknown) date) discussed with unknownMarlon Kelley at 4:48 p.m. on January 09, [...] (unknown) (unknown) hydrocodone-acetam (units (unknown) date) inophen [Bucyrus] 5 unknown) MG/325 MG tablet (unknown) (no [...] excludable. (unknown) (no (unknown) (unknown) mg tablet (Bucyrus) (units (unknown) date) unknown) (unknown) (no (unknown) [...] (unknown) date) to the vertex.? unknown) 3-dimensional gjdosbx-ratdcjfyi-r rojection (unknown) (no (unknown) (unknown) the right (units (unkn own) date) unknown) (unknown) (no (unknown) (unknown) the (units (unkno wn) date) unknown) (unknown) (no (unknown) (unknown) through the [place] (units (unknown) date) [facility] [place] unknown) Post-contrast [...] wn) date) unknown) (unknown) (no (unknown) (unknown) [id number] (units (unkn own) date) unknown) (unknown) (no [...] date) unknown) (unknown) (no (unknown) (unknown) [address] [place] [address] (units (unknown) date) unknown) (unknown) (no (unknown) [...] (unknown) (unknown) Accession Number: (units (unknown) date) [id number] ?? unknown) (unknown) (no (unknown) (unknown) Accession Number: (units (unknown) date) [id number] ?? unknown) (unknown) (no (unknown) (unknown) Accession Number: (units (unknown) date) [id number] ?? unknown) (unknown) (no (unknown) (unknown) Accession Number: (units (unknown) date) [id number] ?? unknown) (unknown) (no (unknown) (unknown) Acct:[id number] (units (unknown) date) unknown) (unknown) (no (unknown) [...] mildly displaced fracture (unknown) (no (unknown) (unknown) [place], [place] (units ( unknown) date) [address] unknown) (unknown) (no (unknown) (unknown) Anatomic variant [...] (unknown) (unknown) COMPARISON:? (units (u nknown) date) [facility], unknown) CT, CT ANGIO HEAD AND NECK, 01/09/2022, 15:03. (unknown) (no (unknown) (unknown) COMPARISON:? (units (u nknown) date) [facility], unknown) CT, CT ANGIO HEAD AND NECK, 01/09/2022, 15:03.? (unknown) (no (unknown) (unknown) COMPARISON:? (units (u nknown) date) [facility], unknown) CT, CT HEAD/BRAIN WO CON, 01/09/2022, [...] (unknown) (unknown) : 1940 (units (unknown) date) Acct:[id number] unknown) (unknown) (no (unknown) (unknown) : 1940 [...] unknown) (unknown) (no (unknown) (unknown) [facility] (units (o wn) date) unknown) (unknown) (no [...] opening: unknown) Spontaneous (unknown) (no (unknown) (unknown) [place] coma scale (units (unknown) date) motor response: [...] (unknown) date) unknown) (unknown) (no (unknown) (unknown) [facility] (units (unknown) date) [address] unknown) [place] [address] (unknown) (no (unknown) (unknown) [facility] (units (unknown) date) unknown) (unknown) (no (unknown) (unknown) [facility] (units (unkno wn) date) unknown) (unknown) (no [...] (unknown) Lymph # (Auto) (units (unknown) date) (3345-5121) /uL unknown) (unknown) (no (unknown) (unknown) Lymph # (Auto) 800 (units (unknown) date) L (2255-9120) /uL unknown) (unknown) (no (unknown) (unknown) Lymph [...] Stat unknown) (unknown) (no (unknown) (unknown) MR#: [id number] (units (unknown) date) unknown) (unknown) (no (unknown) [...] be seen, with (unknown) (no (unknown) (unknown) [place] # (Auto) (units ( unknown) date) (0-900) /uL unknown) (unknown) (no (unknown) (unknown) [place] # (Auto) 700 (units (unknown) date) (0-900) /uL unknown) (unknown) (no (unknown) (unknown) [place] % (Auto) (units ( unknown) date) (3-14) % unknown) (unknown) (no (unknown) (unknown) [place] % (Auto) 9.5 (units (unknown) date) (3-14) [...] Neut # (Auto) (units ( unknown) date) (8960-9705) /uL unknown) (unknown) (no (unknown) (unknown) Neut # (Auto) 5700 (units (unknown) date) (3770-5937) /uL unknown) (unknown) (no (unknown) (unknown) Neut [...] telephone with Dr. Kelley at 2:32 p.m. [place] time on (unknown) (no (unknown) (unknown) Occasional [...] 1 tab PO Q4HP PRN #30 tabs 05/25/17 (unknown) (no (unknown) (unknown) hydrocodone-acetam (units (unknown) date) inophen [Bucyrus] 5 unknown) MG/325 MG tablet (unknown) (no [...] excludable. (unknown) (no (unknown) (unknown) mg tablet (Bucyrus) (units (unknown) date) unknown) (unknown) (no (unknown) [...] (unknown) date) to the vertex.? unknown) 3-dimensional fnefctp-rzljgzqri-i rojection (unknown) (no (unknown) (unknown) the right (units (unkn own) date) unknown) (unknown) (no (unknown) (unknown) the (units (unkno wn) date) unknown) (unknown) (no (unknown) (unknown) through the [place] (units (unknown) date) [facility] [place].? unknown) Post-contrast [...] wn) date) unknown) (unknown) (no (unknown) (unknown) [id number] (units (unkn own) date) unknown) (unknown) (no [...] date) unknown) (unknown) (no (unknown) (unknown) [address] [place] [address] (units (unknown) date) unknown) (unknown) (no (unknown) [...] (unknown) (unknown) Accession Number: (units (unknown) date) [id number] ?? unknown) (unknown) (no (unknown) (unknown) Accession Number: (units (unknown) date) [id number] ?? unknown) (unknown) (no (unknown) (unknown) Accession Number: (units (unknown) date) [id number] ?? unknown) (unknown) (no (unknown) (unknown) Accession Number: (units (unknown) date) [id number] ?? unknown) (unknown) (no (unknown) (unknown) Accession Number: (units (unknown) date) [id number] ?? unknown) (unknown) (no (unknown) (unknown) Acct:[id number] (units (unknown) date) unknown) (unknown) (no (unknown) [...] mildly displaced fracture (unknown) (no (unknown) (unknown) [place], [place] (units ( unknown) date) [address] unknown) (unknown) (no (unknown) (unknown) Anatomic variant [...] Approved by: (units (u nknown) date) Jd Bkaer M.D. unknown) on 01/09/2022 at 15:23 (unknown) [...] (unknown) (unknown) COMPARISON:? (units (u nknown) date) [facility], unknown) CT, CT ANGIO HEAD AND NECK, 01/09/2022, 15:03. (unknown) (no (unknown) (unknown) COMPARISON:? (units (u nknown) date) [facility], unknown) CT, CT ANGIO HEAD AND NECK, 01/09/2022, 15:03.? (unknown) (no (unknown) (unknown) COMPARISON:? (units (u nknown) date) [facility], unknown) CT, CT HEAD/BRAIN WO CON, 01/09/2022, [...] (unknown) (unknown) : 1940 (units (unknown) date) Acct:[id number] unknown) (unknown) (no (unknown) (unknown) : 1940 [...] move all extremities (unknown) (no (unknown) (unknown) Geneva coma scale (units (unknown) date) eye opening: unknown) Spontaneous (unknown) (no (unknown) (unknown) Geneva coma scale (units (unknown) date) motor response: unknown) Obey commands (unknown) (no (unknown) (unknown) Geneva coma scale (units (unknown) date) total score: 14 unknown) (unknown) (no (unknown) (unknown) Geneva coma scale (units (unknown) date) verbal response: [...] (unknown) date) unknown) (unknown) (no (unknown) (unknown) [facility] (units (unknown) date) [address] unknown) [place] [address] (unknown) (no (unknown) (unknown) [facility] (units (unknown) date) unknown) (unknown) (no (unknown) (unknown) [facility] (units (unkno wn) date) unknown) (unknown) (no [...] (unknown) Lymph # (Auto) (units (unknown) date) (0711-0174) /uL unknown) (unknown) (no (unknown) (unknown) Lymph # (Auto) 800 (units (unknown) date) L (7193-4209) /uL unknown) (unknown) (no (unknown) (unknown) Lymph [...] Stat unknown) (unknown) (no (unknown) (unknown) MR#: [id number] (units (unknown) date) unknown) (unknown) (no (unknown) [...] be seen, with (unknown) (no (unknown) (unknown) [place] # (Auto) (units ( unknown) date) (0-900) /uL unknown) (unknown) (no (unknown) (unknown) [place] # (Auto) 700 (units (unknown) date) (0-900) /uL unknown) (unknown) (no (unknown) (unknown) [place] % (Auto) (units ( unknown) date) (3-14) % unknown) (unknown) (no (unknown) (unknown) [place] % (Auto) 9.5 (units (unknown) date) (3-14) [...] Neut # (Auto) (units ( unknown) date) (0936-7231) /uL unknown) (unknown) (no (unknown) (unknown) Neut # (Auto) 5700 (units (unknown) date) (5879-1970) /uL unknown) (unknown) (no (unknown) (unknown) Neut [...] telephone with Dr. Kelley at 2:32 p.mAdrian [place] time on (unknown) (no (unknown) (unknown) Occasional [...] (units (unkno wn) date) Disposition: Xfer unknown) [facility] (unknown) (no (unknown) (unknown) Patient [...] Kamryn Danielle unknown) (unknown) (no (unknown) (unknown) Peritoneal spaces: [...] (unknown) (unknown) hydrocodone-acetam (units (unknown) date) inophen [Bucyrus] 5 unknown) MG/325 MG tablet (unknown) (no [...] excludable. (unknown) (no (unknown) (unknown) mg tablet (Bucyrus) (units (unknown) date) unknown) (unknown) (no (unknown) [...] (unknown) date) to the vertex.? unknown) 3-dimensional hiihvtt-eccrkplwm-p rojection (unknown) (no (unknown) (unknown) the right (units (unkn own) date) unknown) (unknown) (no (unknown) (unknown) the (units (unkno wn) date) unknown) (unknown) (no (unknown) (unknown) through the [place] (units (unknown) date) of [place].? unknown) Post-contrast [...] wn) date) unknown) (unknown) (no (unknown) (unknown) [address] [place] [address] (units (unknown) date) unknown) (unknown) (no (unknown) (unknown) 3 cm and is not (units (unknown) date) significantly unknown) changed compared to 01/09/2022 (unknown) (no (unknown) (unknown) Accession Number: (units (unknown) date) [id number] unknown) (unknown) (no (unknown) (unknown) Age/Sex: 81 / F (units (unknown) date) Date of Service: unknown) (unknown) (no (unknown) (unknown) [place], [place] (units ( unknown) date) [address] unknown) (unknown) (no (unknown) (unknown) Approved by: (units (u nknown) date) Samir Del Angel M.D. unknown) on 01/30/2022 at 16:18 (unknown) (no (unknown) (unknown) COMPARISON: (units (un known) date) [facility], unknown) CT, CT ANGIO HEAD AND NECK, 01/09/2022, 15:03. (unknown) (no (unknown) (unknown) : 1940 (units (unknown) date) Acct:[id number] unknown) (unknown) (no (unknown) (unknown) Dictated by: (units (u nknown) date) Samir Del Angel M.D. unknown) on 01/30/2022 at 16:15 (unknown) (no (unknown) (unknown) FINDINGS: (units (unkn own) date) unknown) (unknown) (no (unknown) (unknown) IMPRESSION: (units (un known) date) unknown) (unknown) (no (unknown) (unknown) INDICATIONS: lump (units (unknown) date) in right jugular unknown) hematoma post op (unknown) (no (unknown) (unknown) [facility] (units (unknown) date) unknown) (unknown) (no (unknown) (unknown) Loc: [place] (units (unkno wn) date) unknown) (unknown) (no (unknown) (unknown) [id number] (units (unk nown) date) unknown) (unknown) (no [...] nown) date) unknown) (unknown) (no (unknown) (unknown) [id number] (units (unkn own) date) unknown) (unknown) (no [...] (unknown) (unknown) : 1940 (units (unknown) date) Acct:[id number] unknown) (unknown) (no (unknown) (unknown) Date of [...] nknown) date) unknown) (unknown) (no (unknown) (unknown) [facility] (units (unknown) date) [address] unknown) [place] [address] (unknown) (no (unknown) (unknown) Medical History (units (unknown) date) (Reviewed 01/09/22 unknown) @ 17:43 by iRck Kelley DO) (unknown) (no (unknown) (unknown) Medication [...] (unkno wn) date) Kamryn Danielle Rochelle unknown) MR#: M (unknown) (no (unknown) [...] (unknown) (unknown) hydrocodone-acetam (units (unknown) date) inophen [Bucyrus] 5 unknown) MG/325 MG tablet (unknown) (no (unknown) (unknown) lives (units (unkno wn) date) independently: Yes unknown) (unknown) (no (unknown) (unknown) marital status: (units (unknown) date) unknown) (unknown) (no (unknown) (unknown) mg tablet (Bucyrus) (units (unknown) date) unknown) (unknown) (no (unknown) (unknown) shrimp [SHRIMP] (units (unknown) date) AdvReac unknown) Intermediate VOMITING Verified 01/09/22 14:22 Result panel 65 (unknown) (no (unknown) (unknown) (no value) (units (unk nown) date) unknown) (unknown) (no (unknown) (unknown) 1. No acute (units (un known) date) intracranial unknown) process. (unknown) (no (unknown) (unknown) 02/25/22 (units (unkno wn) date) unknown) (unknown) (no (unknown) (unknown) [address] [place] [address] (units (unknown) date) unknown) (unknown) (no (unknown) (unknown) 2. Moderate (units (un known) date) atrophy and unknown) chronic microvascular ischemic changes. (unknown) (no (unknown) (unknown) Accession Number: (units (unknown) date) [id number] unknown) (unknown) (no (unknown) (unknown) Age/Sex: 81 / F (units (unknown) date) Date of Service: unknown) (unknown) (no (unknown) (unknown) [place], [place] (units ( unknown) date) [address] unknown) (unknown) (no (unknown) (unknown) Approved by: (units (u nknown) date) Elizabet Bradley M.D. unknown) on 02/25/2022 at 19:25 (unknown) (no (unknown) (unknown) Brain: No (units (unkn own) date) intracranial unknown) bleeds or masses. There is cerebral volume loss for (unknown) (no (unknown) (unknown) COMPARISON: (units (un known) date) [facility], unknown) CT, CT HEAD/BRAIN WO CON, 01/09/2022, 15:03. (unknown) (no (unknown) (unknown) CSF spaces: Basal (units (unknown) date) cisterns are unknown) patent. No extra-axial fluid collections. The (unknown) (no (unknown) (unknown) CT Scan Report (units (unknown) date) unknown) (unknown) (no (unknown) (unknown) : 1940 (units (unknown) date) Acct:[id number] unknown) (unknown) (no (unknown) (unknown) Dictated by: [...] date) Excellent. unknown) (unknown) (no (unknown) (unknown) [facility] (units (unknown) date) unknown) (unknown) (no (unknown) (unknown) Loc: ED (units (unkno wn) date) unknown) (unknown) (no (unknown) (unknown) [id number] (units (unk nown) date) unknown) (unknown) (no [...] nown) date) unknown) (unknown) (no (unknown) (unknown) [id number] (units (unkn own) date) unknown) (unknown) (no [...] (unknown) (unknown) : 1940 (units (unknown) date) Acct:[id number] unknown) (unknown) (no (unknown) (unknown) Date of [...] date) Signs: unknown) (unknown) (no (unknown) (unknown) [facility] (units (unknown) date) [address] unknown) [place] [address] (unknown) (no (unknown) (unknown) Last Admin: (units [...] (unknown) (unknown) hydrocodone-acetam (units (unknown) date) inophen [Bucyrus] 5 unknown) MG/325 MG tablet (unknown) (no (unknown) (unknown) lives (units (unkno wn) date) independently: Yes unknown) (unknown) (no (unknown) (unknown) marital status: (units (unknown) date) unknown) (unknown) (no (unknown) (unknown) mg tablet (Bucyrus) (units (unknown) date) unknown) (unknown) (no (unknown) (unknown) shrimp [SHRIMP] (units (unknown) date) AdvReac unknown) Intermediate VOMITING Verified 01/09/22 14:22 Result panel 67 (unknown) (no (unknown) (unknown) (no value) (units (unk nown) date) unknown) (unknown) (no (unknown) (unknown) *If you do not (units (unknown) date) have a primary care unknown) provider please contact the [facility] (unknown) (no (unknown) (unknown) *Please continue (units [...] negative and no (unknown) (no (unknown) (unknown) [id number] (units (unkn own) date) unknown) (unknown) (no [...] (unknown) (unknown) : 1940 (units (unknown) date) Acct:[id number] unknown) (unknown) (no (unknown) (unknown) Date of [...] for Contusion unknown) (unknown) (no (unknown) (unknown) [facility] (units (unknown) date) [address] unknown) [place] [address] (unknown) (no (unknown) (unknown) Last Admin: (units [...] (unknown) Resource line at (units (unknown) date) [phone]. They unknown) will ask some questions about [...] (unknown) (unknown) hydrocodone-acetam (units (unknown) date) inophen [Bucyrus] 5 unknown) MG/325 MG tablet (unknown) (no (unknown) (unknown) lives (units (unkno wn) date) independently: Yes unknown) (unknown) (no (unknown) (unknown) marital status: (units (unknown) date) unknown) (unknown) (no (unknown) (unknown) mg tablet (Bucyrus) (units (unknown) date) unknown) (unknown) (no (unknown) [...] primary care unknown) provider please contact the [facility] (unknown) (no (unknown) (unknown) *Please continue (units [...] negative and no (unknown) (no (unknown) (unknown) [id number] (units (unkn own) date) unknown) (unknown) (no [...] stated above (unknown) (no (unknown) (unknown) [address] [place] [address] (units (unknown) date) unknown) (unknown) (no (unknown) [...] (unknown) (unknown) Accession Number: (units (unknown) date) [id number] ?? unknown) (unknown) (no (unknown) (unknown) Acct:[id number] (units (unknown) date) unknown) (unknown) (no (unknown) [...] (unknown) MAIDA Pelletier (units ( unknown) date) [address] unknown) (unknown) (no (unknown) (unknown) Approved by: [...] (unknown) (unknown) COMPARISON:? (units (u nknown) date) [facility], unknown) CT, CT HEAD/BRAIN WO CON, 01/09/2022, [...] (unknown) (unknown) : 1940 (units (unknown) date) Acct:[id number] unknown) (unknown) (no (unknown) (unknown) : 1940 [...] DI for Contusion (unknown) (no (unknown) (unknown) [facility] (units (unknown) date) [address] [place] [address] unknown) [place] [address] (unknown) (no (unknown) (unknown) [facility] (units (unknown) date) unknown) (unknown) (no [...] date) unknown) (unknown) (no (unknown) (unknown) MR#: [id number] (units (unknown) date) unknown) (unknown) (no (unknown) [...] (unknown) Resource line at (units (unknown) date) [phone]. They unknown) will ask some questions about [...] (unknown) (unknown) Urine Specific (units (unknown) date) [place] 1.05 unknown) (unknown) (no (unknown) (unknown) Urine [...] (unknown) (unknown) hydrocodone-acetam (units (unknown) date) inophen [Bucyrus] 5 unknown) MG/325 MG tablet (unknown) (no (unknown) (unknown) lesions.? (units (unkn own) date) unknown) (unknown) (no (unknown) (unknown) lives (units (unkno wn) date) independently: Yes unknown) (unknown) (no (unknown) (unknown) marital status: (units (unknown) date) unknown) (unknown) (no (unknown) (unknown) matter chronic (units (unknown) date) small vessel unknown) ischemic changes.? There is intracranial internal (unknown) (no (unknown) (unknown) mg tablet (Bucyrus) (units (unknown) date) unknown) (unknown) (no (unknown) [...] date) unknown) (unknown) (no (unknown) (unknown) [address] [place] [address] (units (unknown) date) unknown) (unknown) (no (unknown) (unknown) 2. 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 Moderate (units (un known) date) cerebral volume unknown) loss and chronic white matter small vessel ischemic (unknown) (no (unknown) (unknown) Accession Number: (units (unknown) date) [id number] unknown) (unknown) (no (unknown) (unknown) Age/Sex: 81 / F (units (unknown) date) Date of Service: unknown) (unknown) (no (unknown) (unknown) [place] (units ( unknown) date) [address] unknown) (unknown) (no (unknown) (unknown) Approved by: (units (u nknown) date) Keith Barreto, unknown) Carole on 03/06/2022 at 2:11 (unknown) (no (unknown) (unknown) Brain: No (units (unkn own) date) intracranial unknown) hemorrhage, mass, or mass effect. There are (unknown) (no (unknown) (unknown) COMPARISON: [facility] (units (unknown) date) [facility], CT, CT unknown) HEAD/BRAIN WO CON, 02/25/2022, 18:29. (unknown) (no (unknown) (unknown) CSF spaces: Basal (units (unknown) date) cisterns are unknown) patent. No extra-axial fluid collections. (unknown) (no (unknown) (unknown) CT Scan Report (units (unknown) date) unknown) (unknown) (no (unknown) (unknown) : 1940 (units (unknown) date) Acct:[id number] unknown) (unknown) (no (unknown) (unknown) Dictated by: [...] date) Excellent. unknown) (unknown) (no (unknown) (unknown) [facility] (units (unknown) date) unknown) (unknown) (no (unknown) (unknown) Loc: ED (units (unkno wn) date) unknown) (unknown) (no (unknown) (unknown) [id number] (units (unk nown) date) unknown) (unknown) (no [...] wn) date) unknown) (unknown) (no (unknown) (unknown) [address] [place] [address] (units (unknown) date) unknown) (unknown) (no (unknown) (unknown) 12/25/2014, (units (unk nown) date) 14:55. unknown) (unknown) (no (unknown) (unknown) Accession (units (unkn own) date) Number: unknown) [id number] (unknown) (no (unknown) (unknown) Age/Sex: 81 / F (units (unknown) date) Date of Service: unknown) (unknown) (no (unknown) (unknown) [place], [place] (units ( unknown) date) [address] unknown) (unknown) (no (unknown) (unknown) Approved by: (units (u nknown) date) Keith Barreto unknownMarlon Lam on 03/06/2022 at 2:13 (unknown) (no (unknown) (unknown) Bones: No (units (unkn own) date) fractures or unknown) dislocations. Pelvic ring appears intact. There is a (unknown) (no (unknown) (unknown) COMPARISON: (units (un known) date) [facility] unknown) [facility] [place], CR, XR PELVIS W LATERAL HIP (unknown) (no (unknown) (unknown) : 1940 (units (unknown) date) Acct:[id number] unknown) (unknown) (no (unknown) (unknown) Dictated by: (units (u nknown) date) Keith Barreto, unknown) Carole on 03/06/2022 at 2:11 (unknown) (no (unknown) (unknown) FINDINGS: (units (unkn own) date) unknown) (unknown) (no (unknown) (unknown) IMPRESSION: (units (un known) date) unknown) (unknown) (no (unknown) (unknown) INDICATIONS: (units (u nknown) date) fall unknown) (unknown) (no (unknown) (unknown) [facility] (units (unknown) date) unknown) (unknown) (no (unknown) (unknown) LT, (units (unkno wn) date) unknown) (unknown) (no (unknown) (unknown) Loc: ED (units (unkno wn) date) unknown) (unknown) (no (unknown) (unknown) [id number] (units (unk nown) date) unknown) (unknown) (no [...] nown) date) unknown) (unknown) (no (unknown) (unknown) [id number] (units (unkn own) date) unknown) (unknown) (no [...] (unknown) (unknown) : 1940 (units (unknown) date) Acct:[id number] unknown) (unknown) (no (unknown) (unknown) Date of [...] date) Signs: unknown) (unknown) (no (unknown) (unknown) [facility] (units (unknown) date) [address] unknown) [place] [address] (unknown) (no (unknown) (unknown) Medical History (units [...] (unknown) (unknown) hydrocodone-acetam (units (unknown) date) inophen [Bucyrus] 5 unknown) MG/325 MG tablet (unknown) (no (unknown) (unknown) issues. Reportedly (units (unknown) date) fell and hit the unknown) back of her head against the edge of a (unknown) (no (unknown) (unknown) lives (units (unkno wn) date) independently: Yes unknown) (unknown) (no (unknown) (unknown) marital status: (units (unknown) date) unknown) (unknown) (no (unknown) (unknown) mg tablet (Bucyrus) (units (unknown) date) unknown) (unknown) (no (unknown) [...] unknown) MD Marley> (unknown) (no (unknown) (unknown) [id number] (units (unkn own) date) unknown) (unknown) (no [...] (unknown) (unknown) : 1940 (units (unknown) date) Acct:[id number] unknown) (unknown) (no (unknown) (unknown) Date of [...] Keith Barreto, unknown) Carole on 03/06/2022 at 2:09 ? ? [...] date) Signs: unknown) (unknown) (no (unknown) (unknown) [facility] (units (unknown) date) [address] unknown) [place] [address] (unknown) (no (unknown) (unknown) Laterality: left (units [...] (unknown) (unknown) hydrocodone-acetam (units (unknown) date) inophen [Bucyrus] 5 unknown) MG/325 MG tablet (unknown) (no [...] unknown) (unknown) (no (unknown) (unknown) mg tablet (Bucyrus) (units (unknown) date) unknown) (unknown) (no (unknown) [...] to return to (units (unknown) date) [facility] facility (unknown) (no (unknown) (unknown) show [...] facility 2022-02-26 00:00 Unknown if ever smoked [facility] 2022-03-06 00:00 Unknown if ever smoked [facility] Vital Signs date measurement value units 2022-01-09 [...]
[2022-04-09 21:38] LABS: CALCIUM 8.9 mg/dL (8.5-10.3); CREATININE 1.3 mg/dL (0.4-1.0); MAGNESIUM 1.4 mg/dL (1.7-2.8); POTASSIUM 3.4 mmol/L (3.5-5.0)
[2022-04-09] MEDS: SODIUM CHLORIDE 0.9% 1,000 ML IV STA (22:07)
[2022-04-09] MEDS ORDERED: MAGNESIUM SULFATE 2 GRAM 2 GM/50 ML BAG IV ONE (22:29)
[2022-04-09] MEDS ORDERED: POTASSIUM CHLORIDE 20 MEQ TABLET PO STA (22:29)
[2022-04-09 23:06] VITALS: BP 147/84
--- NOTE | 2022-04-09 23:21 | CT Report ---
PROCEDURE: HEAD WO INDICATIONS: "slumped" to floor, syncope. on blood thinner TECHNIQUE: Noncontrast 4.5 mm thick angled axial sections acquired from the foramen magnum to the vertex. For r adiation dose reduction, the following was used: automated exposure control, adjustment of mA and/or kV according to patient size. COMPARISON: CT head 01/07/2022. FINDINGS: Image quality: Excellent. CSF spaces: There is moderate cerebral volume loss with prominence of the ventricles and sulci. Basa l cisterns are patent. No extra-axial fluid collections. Brain: No intracranial hemorrhage, mass, or mass effect. A small region of Ancef malacia is redemons trated in the right frontal lobe consistent with sequelae of a prior infarct. Cortes-white matter inter face is otherwise preserved. There are subcortical and periventricular white matter hypodensities con sistent with moderate chronic small vessel ischemic changes. Skull and face: Calvarium and visualized facial bones are intact, without suspicious lesions. Sinuses: Visualized sinuses and mastoids are clear. IMPRESSION: 1. No acute intracranial abnormality. 2. 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 3. Moderate cerebral volume loss and chronic white matter small vessel ischemic changes. Reviewed by: Keith Davila MD on 04/09/2022 11:19 PM PST Approved by: Keith Davila MD on 04/09/2022 11:19 PM PST Station ID: [id number]
== END 2022-04-09 23:35 | disposition home or self-care (01) ==
LOC: EDUNIT# → ED 20:47
DX: I95.1 Orthostatic hypotension (principal); E83.42 Hypomagnesemia; E87.6 Hypokalemia; I48.20 Chronic atrial fibrillation, unspecified; Z79.01 Long term (current) use of anticoagulants; I10 Essential (primary) hypertension; E11.9 Type 2 diabetes mellitus without complications; Z79.4 Long term (current) use of insulin; Z79.84 Long term (current) use of oral hypoglycemic drugs; E86.0 Dehydration
CPT/HCPCS: 36415; 70450; 80048; 80053; 83690; 83735; 84443; 85025; 93005; 96360; 99283; 99284; A9270

== ENCOUNTER 2022-04-15 14:21 | Outpatient (CLI) | payer MEDICARE, OTHER ==
--- NOTE | 2022-04-15 18:19 | XRAY Report ---
PROCEDURE: Cervical Spine Complete INDICATIONS: BACK PX TECHNIQUE: 7 views of the cervical spine acquired. COMPARISON: None. FINDINGS: Bones: No fractures or dislocations to the T1 level. Expected appearance of cervical fusion hardware , status post posterior lateral vin and pedicle screw fixation, with pedicle screws bilaterally at C3 , C4, C5, C6, T1, and T2. No evidence of hardware failure or loosening. Multilevel facet arthropathy bilaterally, relatively impressive on the left. There is multilevel bilateral bony foraminal narrowin g. Soft tissues: No prevertebral soft tissue swelling. IMPRESSION: Expected appearance of cervical thoracic fusion hardware. Extensive cervical spondylitic change. Reviewed by: Javed Daniels MD on 04/15/2022 6:18 PM PST Approved by: Javed Daniels MD on 04/15/2022 6:18 PM PST Station ID: [id number]
== END 2022-04-15 14:22 | disposition home or self-care (01) ==
LOC: DI 14:21
PROVIDERS: ATTEND Physician Assistant
DX: Z98.1 Arthrodesis status (principal); M47.812 Spondylosis without myelopathy or radiculopathy, cervical region

== ENCOUNTER 2022-04-17 09:53 | Outpatient (CLI) | payer MEDICARE, OTHER | END 2022-04-17 09:54 | disposition EMS.NT | LOC: EMS 09:53 | DX: Z03.89 Encounter for observation for other suspected diseases and conditions ruled out (principal); Z79.01 Long term (current) use of anticoagulants ==

== ENCOUNTER 2022-04-21 16:18 | Outpatient (CLI) | payer MEDICARE, OTHER | END 2022-04-21 16:19 | disposition critical access hospital (66) | LOC: EMS 16:18 | DX: R41.82 Altered mental status, unspecified (principal); R46.4 Slowness and poor responsiveness; R53.1 Weakness | CPT/HCPCS: A0425; A0429 ==

== ENCOUNTER 2022-04-21 16:35 | Emergency (ER) | payer MEDICARE, OTHER ==
--- OUTSIDE RECORDS SUMMARY | 2022-04-21 16:42 | EXTERNAL MEDICAL SUMMARY RPT | Continuity of Care Document ---
:1940 Author Organization [facility] Address [address] [place] [address] Phone Care Team Providers Name Role Phone Roof, Jefry Unavailable Unavailable Allergies and Intolerances date description facility type (no date) codeine [facility] (unknown) (no date) shrimp [facility] (unknown) Encounters No information. Functional Status No information. Immunizations No information. Medications date description facility 2022-02-26 00:00 Cephalexin [facility] Problems date description facility 2022-02-25 00:00 Contusion of face [facility] 2022-02-26 00:00 Acute urinary tract infection [facility] ospital 2022-03-06 00:00 Dementia [facility] 2022-03-06 00:00 Acute hip pain [facility] 2022-03-06 00:00 Injury of head [facility] 2022-03-06 00:00 Fall [facility] Procedures date description facility 2022-01-29 00:00 Ultrasound of soft tissue of head and n jhonatan [facility] 2022-02-25 00:00 Computed tomography of head or brain [facility] contrast 2022-03-06 00:00 Computed tomography of head or brain [facility] contrast 2022-03-06 00:00 Unilateral x-ray of hip, two views, wit h x-ray [facility] of pelvis Results/Labs test date author facility value unit interpret ation Result panel 1 (unknown) (no (unknown) (unknown) (no value) (units (unk nown) date) unknown) (unknown) (no (unknown) (unknown) 1.9 x 1.1 cm. The (units (unknown) date) collection is unknown) heterogeneously hypoechoic with posterior (unknown) (no (unknown) (unknown) 01/09/2022. (units (un known) date) unknown) (unknown) (no (unknown) (unknown) 01/30/22 (units (unkno wn) date) unknown) (unknown) (no (unknown) (unknown) [address] [place] [address] (units (unknown) date) unknown) (unknown) (no (unknown) (unknown) 3 cm and is not (units (unknown) date) significantly unknown) changed compared to 01/09/2022 (unknown) (no (unknown) (unknown) Accession Number: (units (unknown) date) [id number] unknown) (unknown) (no (unknown) (unknown) Age/Sex: 81 / F (units (unknown) date) Date of Service: unknown) (unknown) (no (unknown) (unknown) [place] (units ( unknown) date) [id number] unknown) (unknown) (no (unknown) (unknown) Approved by: (units (u nknown) date) Samir Del Angel M.D. unknown) on 01/30/2022 at 16:18 (unknown) (no (unknown) (unknown) COMPARISON: (units (un known) date) [facility], unknown) CT, CT ANGIO HEAD AND NECK, 01/09/2022, 15:03. (unknown) (no (unknown) (unknown) : 1940 (units (unknown) date) Acct:[id number] unknown) (unknown) (no (unknown) (unknown) Dictated by: (units (u nknown) date) Samir Del Angel M.D. unknown) on 01/30/2022 at 16:15 (unknown) (no (unknown) (unknown) FINDINGS: (units (unkn own) date) unknown) (unknown) (no (unknown) (unknown) IMPRESSION: (units (un known) date) unknown) (unknown) (no (unknown) (unknown) INDICATIONS: lump (units (unknown) date) in right jugular unknown) hematoma post op (unknown) (no (unknown) (unknown) [facility] (units (unknown) date) unknown) (unknown) (no (unknown) (unknown) Loc: [place] (units (unkno wn) date) unknown) (unknown) (no (unknown) (unknown) [id number] (units (unk nown) date) unknown) (unknown) (no [...] This is not significantly changed Result panel 2 (unknown) (no (unknown) (unknown) (no value) (units [...] too young for work-up reincubated Result panel 3 (unknown) (no (unknown) (unknown) (no value) (units (unk nown) date) unknown) (unknown) (no (unknown) (unknown) [id number] (units (unkn own) date) unknown) (unknown) (no [...] (unknown) (unknown) : 1940 (units (unknown) date) Acct:[id number] unknown) (unknown) (no (unknown) (unknown) Date of [...] nknown) date) unknown) (unknown) (no (unknown) (unknown) [facility] (units (unknown) date) [address] [place] [address] unknown) [place] [address] (unknown) (no (unknown) (unknown) Medical History (units [...] (unknown) (unknown) hydrocodone-acetam (units (unknown) date) inophen [[facility]] 5 unknown) MG/325 MG tablet (unknown) (no (unknown) (unknown) lives (units (unkno wn) date) independently: Yes unknown) (unknown) (no (unknown) (unknown) marital status: (units (unknown) date) unknown) (unknown) (no (unknown) (unknown) mg tablet ([facility]) (units (unknown) date) unknown) (unknown) (no (unknown) (unknown) shrimp [SHRIMP] (units (unknown) date) AdvReac unknown) Intermediate VOMITING Verified 01/09/22 14:22 Result panel 4 (unknown) (no (unknown) (unknown) (no value) (units (unk nown) date) unknown) (unknown) (no (unknown) (unknown) 1. No acute (units (un known) date) intracranial unknown) process. (unknown) (no (unknown) (unknown) 02/25/22 (units (unkno wn) date) unknown) (unknown) (no (unknown) (unknown) [address] [place] [address] (units (unknown) date) unknown) (unknown) (no (unknown) (unknown) 2. Moderate (units (un known) date) atrophy and unknown) chronic microvascular ischemic changes. (unknown) (no (unknown) (unknown) Accession Number: (units (unknown) date) [id number] unknown) (unknown) (no (unknown) (unknown) Age/Sex: 81 / F (units (unknown) date) Date of Service: unknown) (unknown) (no (unknown) (unknown) [place] (units ( unknown) date) [id number] unknown) (unknown) (no (unknown) (unknown) Approved by: (units (u nknown) date) Elizabet Bradley M.D. unknown) on 02/25/2022 at 19:25 (unknown) (no (unknown) (unknown) Brain: No (units (unkn own) date) intracranial unknown) bleeds or masses. There is cerebral volume loss for (unknown) (no (unknown) (unknown) COMPARISON: (units (un known) date) [facility], unknown) CT, CT HEAD/BRAIN WO CON, 01/09/2022, 15:03. (unknown) (no (unknown) (unknown) CSF spaces: Basal (units (unknown) date) cisterns are unknown) patent. No extra-axial fluid collections. The (unknown) (no (unknown) (unknown) CT Scan Report (units (unknown) date) unknown) (unknown) (no (unknown) (unknown) : 1940 (units (unknown) date) Acct:[id number] unknown) (unknown) (no (unknown) (unknown) Dictated by: [...] date) Excellent. unknown) (unknown) (no (unknown) (unknown) [facility] (units (unknown) date) unknown) (unknown) (no (unknown) (unknown) Loc: ED (units (unkno wn) date) unknown) (unknown) (no (unknown) (unknown) [id number] (units (unk nown) date) unknown) (unknown) (no [...] mA and/or kV according to Result panel 5 (unknown) (no (unknown) (unknown) (no value) (units (unk nown) date) unknown) (unknown) (no (unknown) (unknown) [id number] (units (unkn own) date) unknown) (unknown) (no [...] (unknown) (unknown) Blood Pressure (units (unknown) date) 02/25/22 unknown) 18:10 (unknown) (no (unknown) (unknown) Blood Pressure (units (unknown) date) 136 unknown) (unknown) (no (unknown) (unknown) Blood Pressure [...] (unknown) (unknown) : 1940 (units (unknown) date) Acct:[id number] unknown) (unknown) (no (unknown) (unknown) Date of [...] date) Signs: unknown) (unknown) (no (unknown) (unknown) [facility] (units (unknown) date) [address] unknown) [place] [address] (unknown) (no (unknown) (unknown) Last Admin: (units [...] (unknown) (unknown) hydrocodone-acetam (units (unknown) date) inophen [[facility]] 5 unknown) MG/325 MG tablet (unknown) (no (unknown) (unknown) lives (units (unkno wn) date) independently: Yes unknown) (unknown) (no (unknown) (unknown) marital status: (units (unknown) date) unknown) (unknown) (no (unknown) (unknown) mg tablet ([facility]) (units (unknown) date) unknown) (unknown) (no (unknown) (unknown) shrimp [SHRIMP] (units (unknown) date) AdvReac unknown) Intermediate VOMITING Verified 01/09/22 14:22 Result panel 6 (unknown) (no (unknown) (unknown) (no value) (units (unk nown) date) unknown) (unknown) (no (unknown) (unknown) *If you do not (units (unknown) date) have a primary care unknown) provider please contact [facility] (unknown) (no (unknown) (unknown) *Please continue (units [...] negative and no (unknown) (no (unknown) (unknown) [id number] (units (unkn own) date) unknown) (unknown) (no [...] (unknown) (unknown) : 1940 (units (unknown) date) Acct:[id number] unknown) (unknown) (no (unknown) (unknown) Date of [...] for Contusion unknown) (unknown) (no (unknown) (unknown) [facility] (units (unknown) date) [address] unknown) [place] [address] (unknown) (no (unknown) (unknown) Last Admin: (units [...] (unknown) Resource line at (units (unknown) date) [phone]. They unknown) will ask some questions about [...] (unknown) (unknown) hydrocodone-acetam (units (unknown) date) inophen [[facility]] 5 unknown) MG/325 MG tablet (unknown) (no (unknown) (unknown) lives (units (unkno wn) date) independently: Yes unknown) (unknown) (no (unknown) (unknown) marital status: (units (unknown) date) unknown) (unknown) (no (unknown) (unknown) mg tablet ([facility]) (units (unknown) date) unknown) (unknown) (no (unknown) (unknown) shrimp [SHRIMP] (units (unknown) date) AdvReac unknown) Intermediate VOMITING Verified 01/09/22 14:22 (unknown) (no (unknown) (unknown) today's note if (units (unknown) date) your PCP is in our unknown) system Result panel 7 (unknown) (no date) (unknown) (unknown) 1-5 /HPF (units (unkn own) unknown) (unknown) (no date) (unknown) (unknown) 30-100/HPF (units (un known) unknown) (unknown) (no date) (unknown) (unknown) Many (>30) (units (un known) unknown) (unknown) (no date) (unknown) (unknown) None Seen (units (unk nown) unknown) (unknown) (no date) (unknown) (unknown) None Seen (units (unk nown) unknown) Result panel 8 (unknown) (no (unknown) (unknown) (no value) (units (unk nown) date) unknown) (unknown) (no (unknown) (unknown) <Electronically (units (unknown) date) signed by Ian unknownMarlon Cruz D.O.> (unknown) (no (unknown) (unknown) *If you do not (units (unknown) date) have a primary care unknown) provider please contact the [facility] (unknown) (no (unknown) (unknown) *Please continue (units [...] negative and no (unknown) (no (unknown) (unknown) [id number] (units (unkn own) date) unknown) (unknown) (no [...] stated above (unknown) (no (unknown) (unknown) [address] [place] [address] (units (unknown) date) unknown) (unknown) (no (unknown) [...] (unknown) (unknown) Accession Number: (units (unknown) date) [id number] ?? unknown) (unknown) (no (unknown) (unknown) Acct:[id number] (units (unknown) date) unknown) (unknown) (no (unknown) [...] (unknown) [place] (units ( unknown) date) [address] unknown) (unknown) (no (unknown) (unknown) Approved by: [...] (unknown) (unknown) COMPARISON:? (units (u nknown) date) [facility], unknown) CT, CT HEAD/BRAIN WO CON, 01/09/2022, [...] (unknown) (unknown) : 1940 (units (unknown) date) Acct:[id number] unknown) (unknown) (no (unknown) (unknown) : 1940 [...] (no (unknown) (unknown) : Denies (units (unk n) date) dysuria, frequency, unknown) incontinence, hematuria, urinary [...] DI for Contusion (unknown) (no (unknown) (unknown) [facility] (units (unknown) date) [address] unknown) [place] [address] (unknown) (no (unknown) (unknown) [facility] (units (unknown) date) unknown) (unknown) (no (unknown) (unknown) Boris Cardona (units ( unknown) date) unknown) (unknown) (no (unknown) (unknown) NarendraStephanie garvinah (units (un known) date) unknown) (unknown) (no [...] date) unknown) (unknown) (no (unknown) (unknown) MR#: [id number] (units (unknown) date) unknown) (unknown) (no (unknown) [...] (unknown) Resource line at (units (unknown) date) [phone]. They unknown) will ask some questions about [...] (unknown) (unknown) Urine Specific (units (unknown) date) [place] 1.05 unknown) (unknown) (no (unknown) (unknown) Urine [...] nknown) date) unknown) (unknown) (no (unknown) (unknown) Doc Holloway (units (u nknown) date) unknown) (unknown) (no [...] (unknown) (unknown) hydrocodone-acetam (units (unknown) date) inophen [[facility]] 5 unknown) MG/325 MG tablet (unknown) (no (unknown) (unknown) lesions.? (units (unkn own) date) unknown) (unknown) (no (unknown) (unknown) lives (units (unkno wn) date) independently: Yes unknown) (unknown) (no (unknown) (unknown) marital status: (units (unknown) date) unknown) (unknown) (no (unknown) (unknown) matter chronic (units (unknown) date) small vessel unknown) ischemic changes.? There is intracranial internal (unknown) (no (unknown) (unknown) mg tablet ([facility]) (units (unknown) date) unknown) (unknown) (no (unknown) [...] (units (unkno wn) date) unknown) Result panel 9 (unknown) (no (unknown) (unknown) >100,000 cfu/ml (unkno wn) date) (unknown) (no (unknown) (unknown) GNBGram negative (units (unknown) date) bacilli unknown) (unknown) (no (unknown) (unknown) Identification (units (unknown) date) and Sensitivity to unknown) Follow Result panel 10 (unknown) (no (unknown) (unknown) >100,000 cfu/ml (unkno wn) date) (unknown) (no (unknown) (unknown) GNBGram negative (units (unknown) date) bacilli unknown) (unknown) (no (unknown) (unknown) GNBGram negative (units (unknown) date) bacilli unknown) (unknown) (no (unknown) (unknown) Identification (units (unknown) date) and Sensitivity to unknown) Follow Result panel 11 (unknown) (no (unknown) (unknown) >100,000 cfu/ml (unkno [...] Workup (units (unknown) date) unknown) Result panel 12 (unknown) (no (unknown) (unknown) >100,000 cfu/ml (unkno [...] Workup (units (unknown) date) unknown) Result panel 13 (unknown) (no (unknown) (unknown) (no value) (units (unk nown) date) unknown) (unknown) (no (unknown) (unknown) 1. No acute (units (un known) date) intracranial unknown) abnormality. (unknown) (no (unknown) (unknown) 03/06/22 (units (unkno wn) date) unknown) (unknown) (no (unknown) (unknown) [address] [place] [address] (units (unknown) date) unknown) (unknown) (no (unknown) (unknown) 2. 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 Moderate (units (un known) date) cerebral volume unknown) loss and chronic white matter small vessel ischemic (unknown) (no (unknown) (unknown) Accession Number: (units (unknown) date) [id number] unknown) (unknown) (no (unknown) (unknown) Age/Sex: 81 / F (units (unknown) date) Date of Service: unknown) (unknown) (no (unknown) (unknown) [place] (units ( unknown) date) [id number] unknown) (unknown) (no (unknown) (unknown) Approved by: (units (u nknown) date) Keith Barreto unknown) Carole on 03/06/2022 at 2:11 (unknown) (no (unknown) (unknown) Brain: No (units (unkn own) date) intracranial unknown) hemorrhage, mass, or mass effect. There are (unknown) (no (unknown) (unknown) COMPARISON: [place] (units (unknown) date) [facility], CT, CT unknown) HEAD/BRAIN WO CON, 02/25/2022, 18:29. (unknown) (no (unknown) (unknown) CSF spaces: Basal (units (unknown) date) cisterns are unknown) patent. No extra-axial fluid collections. (unknown) (no (unknown) (unknown) CT Scan Report (units (unknown) date) unknown) (unknown) (no (unknown) (unknown) : 1940 (units (unknown) date) Acct:[id number] unknown) (unknown) (no (unknown) (unknown) Dictated by: (units (u nknown) date) Keith Barreto unknown) Carole on 03/06/2022 at 2:09 (unknown) (no (unknown) (unknown) FINDINGS: (units (unkn own) date) unknown) (unknown) (no (unknown) (unknown) IMPRESSION: (units (un known) date) unknown) (unknown) (no (unknown) (unknown) INDICATIONS: Fall (units (unknown) date) w/ head strike on unknown) thinners (unknown) (no (unknown) (unknown) Image quality: (units (unknown) date) Excellent. unknown) (unknown) (no (unknown) (unknown) [facility] (units (unknown) date) unknown) (unknown) (no (unknown) (unknown) Loc: ED (units (unkno wn) date) unknown) (unknown) (no (unknown) (unknown) [id number] (units (unk nown) date) unknown) (unknown) (no [...] mA and/or kV according to Result panel 14 (unknown) (no (unknown) (unknown) (no value) (units (unk nown) date) unknown) (unknown) (no (unknown) (unknown) 1. No evidence (units (unknown) date) of fracture or unknown) dislocation. (unknown) (no (unknown) (unknown) 03/06/22 (units (unkno wn) date) unknown) (unknown) (no (unknown) (unknown) [address] [place] [address] (units (unknown) date) unknown) (unknown) (no (unknown) (unknown) 12/25/2014, (units (unk nown) date) 14:55. unknown) (unknown) (no (unknown) (unknown) Accession (units (unkn own) date) Number: unknown) [id number] (unknown) (no (unknown) (unknown) Age/Sex: 81 / F (units (unknown) date) Date of Service: unknown) (unknown) (no (unknown) (unknown) [place], [place] (units ( unknown) date) [address] unknown) (unknown) (no (unknown) (unknown) Approved by: (units (u nknown) date) Keith Barreto, unknown) Carole on 03/06/2022 at 2:13 (unknown) (no (unknown) (unknown) Bones: No (units (unkn own) date) fractures or unknown) dislocations. Pelvic ring appears intact. There is a (unknown) (no (unknown) (unknown) COMPARISON: (units (un known) date) [facility] unknown) [facility] [place], CR, XR PELVIS W LATERAL HIP (unknown) (no (unknown) (unknown) : 1940 (units (unknown) date) Acct:[id number] unknown) (unknown) (no (unknown) (unknown) Dictated by: (units (u nknown) date) Keith Barreto, unknown) Carole on 03/06/2022 at 2:11 (unknown) (no (unknown) (unknown) FINDINGS: (units (unkn own) date) unknown) (unknown) (no (unknown) (unknown) IMPRESSION: (units (un known) date) unknown) (unknown) (no (unknown) (unknown) INDICATIONS: (units (u nknown) date) fall unknown) (unknown) (no (unknown) (unknown) [facility] (units (unknown) date) unknown) (unknown) (no (unknown) (unknown) LT, (units (unkno wn) date) unknown) (unknown) (no (unknown) (unknown) Loc: ED (units (unkno wn) date) unknown) (unknown) (no (unknown) (unknown) [id number] (units (unk nown) date) unknown) (unknown) (no [...] (units (unkno wn) date) unknown) Result panel 15 (unknown) (no (unknown) (unknown) (no value) (units (unk nown) date) unknown) (unknown) (no (unknown) (unknown) [id number] (units (unkn own) date) unknown) (unknown) (no [...] (unknown) (unknown) : 1940 (units (unknown) date) Acct:[id number] unknown) (unknown) (no (unknown) (unknown) Date of [...] date) Signs: unknown) (unknown) (no (unknown) (unknown) [facility] (units (unknown) date) [address] unknown) [place] [id number] (unknown) (no (unknown) (unknown) Medical History (units [...] (unknown) (unknown) hydrocodone-acetam (units (unknown) date) inophen [[facility]] 5 unknown) MG/325 MG tablet (unknown) (no (unknown) (unknown) issues. Reportedly (units (unknown) date) fell and hit the unknown) back of her head against the edge of a (unknown) (no (unknown) (unknown) lives (units (unkno wn) date) independently: Yes unknown) (unknown) (no (unknown) (unknown) marital status: (units (unknown) date) unknown) (unknown) (no (unknown) (unknown) mg tablet ([facility]) (units (unknown) date) unknown) (unknown) (no (unknown) [...] occiput without abrasion or contusion. Result panel 16 (unknown) (no (unknown) (unknown) (no value) (units (unk nown) date) unknown) (unknown) (no (unknown) (unknown) <Electronically (units (unknown) date) signed by Soumya Chauhan unknown) MD Marley> (unknown) (no (unknown) (unknown) [id number] (units (unkn own) date) unknown) (unknown) (no [...] (unknown) (unknown) : 1940 (units (unknown) date) Acct:[id number] unknown) (unknown) (no (unknown) (unknown) Date of [...] by: (units (u nknown) date) Keith Barreto, soila) Carole on 03/06/2022 at 2:11 ? ? [...] date) Signs: unknown) (unknown) (no (unknown) (unknown) [facility] (units (unknown) date) [address] unknown) [place] [address] (unknown) (no (unknown) (unknown) Laterality: left (units [...] (unknown) (unknown) hydrocodone-acetam (units (unknown) date) inophen [[facility]] 5 unknown) MG/325 MG tablet (unknown) (no [...] unknown) (unknown) (no (unknown) (unknown) mg tablet ([facility]) (units (unknown) date) unknown) (unknown) (no (unknown) [...] to return to (units (unknown) date) her alf unknown) facility (unknown) (no (unknown) (unknown) show [...] facility 2022-02-26 00:00 Unknown if ever smoked [facility] 2022-03-06 00:00 Unknown if ever smoked [facility] Vital Signs date measurement value units 2022-02-25 00:00 BMI 30.9 kg/m2 2022-02-25 00:00 [...]
--- NOTE | 2022-04-21 17:18 | ED Physician Documentation ---
History of Present Illness - Stated complaint Stated Complaint: AMS - Chief complaint Chief Complaint: Neuro - Additonal information Additional information: 81-year-old female is brought into the emergency department by EMS for evaluation of an altered mental status. She was reportedly sitting at a table with her speaking to somebody from [facility] when she began did not often fall asleep. Her felt that she would be better served by laying in the couch or recliner so they were moving her over to the couch but they could not wake her up and she could not stand. They summoned EMS and she was noted to be lethargic. Her blood glucose was 132. The patient and her are both poor historians. She appears to have an underlying history of dementia and he is recently had strokes. However right now she reports that she feels fine and would like to go home. Her reports that she appears to be back at baseline. She does have a history of atrial fibrillation and is anticoagulated. She was also seen recently for numerous falls and subsequently was found to have a cervical spine fracture. There have been no recent falls and no falls associated with today's events. no motor activity reported that would resemble seizures. 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: Breast cancer : 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 HEENT: None Psych: None Musculoskeletal: Osteoarthritis Derm: None - Past Surgical History Past Surgical History: Yes General: Colonoscopy, EGD Ortho: Hip replacement, Spine surgery /HAND CLOTH EXAMINER: Hysterectomy, Other HEENT: Cataracts - Present Medications Home Medications: Ambulatory Orders Medication Instructions Recorded Confirmed Terazosin [Hytrin] 5 mg PO BID 08/11/12 01/07/22 Multivitamin [Multivitamins] 1 each PO DAILY 10/06/12 01/07/22 Potassium Chloride [Micro-K] 20 meq PO BIDWM 10/06/12 01/07/22 Oxybutynin Chloride [Ditropan Xl] 15 mg PO DAILY PM 10/23/17 01/07/22 Apixaban [Eliquis] 5 mg BID 02/22/19 01/07/22 metFORMIN [Glucophage] 250 mg PO BID 02/22/19 01/07/22 Furosemide [Lasix] 40 mg PO DAILY #10 tablet 07/02/19 01/07/22 Ferrous Gluconate [Iron] 240 mg PO DAILY 11/24/19 01/07/22 Atorvastatin [Lipitor] 20 mg PO DAILY PM 06/20/20 01/07/22 Carvedilol [Coreg] 25 mg PO BID 06/20/20 01/07/22 Levothyroxine Sodium [Synthroid] 175 mcg PO QDAC 06/20/20 01/07/22 Losartan Potassium [Cozaar] 100 mg PO DAILY PM 06/20/20 01/07/22 Amox/Clav 875/125 [Augmentin] 1 each PO Q12H #14 tablet 06/22/20 01/07/22 Magnesium Oxide [Mag Ox] 400 mg PO DAILY #10 tablet 12/04/20 01/07/22 Potassium Chloride [Micro-K] 10 meq PO BIDWM 10 Days #20 12/04/20 01/07/22 Acetaminophen [Acetaminophen Extra 500 mg PO QID PRN #50 tablet 12/12/21 01/07/22 Strength] Ondansetron Odt [Zofran] 4 mg TL Q6H PRN #10 tablet 12/12/21 01/07/22 oxyCODONE [Roxicodone] 5 mg PO Q4-6H PRN #15 tablet 12/12/21 01/07/22 Amox/Clav 875/125 [Augmentin] 1 each PO Q12H #14 tablet 12/26/21 01/07/22 Doxycycline Hyclate 100 mg PO BID #14 tab 12/26/21 01/07/22 Azithromycin 250 mg PO DAILY #6 tablet 04/21/22 Cefpodoxime Proxetil [Vantin] 100 mg PO Q12H #14 tablet 04/21/22 - Allergies Allergies/Adverse Reactions: Allergies Allergy/AdvReac Type Severity Reaction Status Date / Time codeine [Codeine] Allergy Unknown Rash Verified 04/21/22 16:46 GLORIA Inhibitors Allergy Unknown Verified 04/21/22 16:46 iodine Allergy Unknown Verified 04/21/22 16:46 tramadol Allergy Unknown Verified 04/21/22 16:46 shellfish derived AdvReac Unknown Unknown Verified 04/21/22 16:46 Calcium Channel Blocking AdvReac Edema Verified 04/21/22 16:46 Agents-Dih - Social History Does the pt smoke?: No Smoking Status: Never smoker Does the pt drink ETOH?: No Does the pt have substance abuse?: No - Immunizations Immunizations are current?: Yes - POLST Patient has POLST: No POLST Status: Full Code PD ED PE EXPANDED - General General: Alert, No acute distress - Cardiac Cardiac: Irregularly irregular, Radial strong equal, Pedal strong equal, Cap refill < 2 sec - Respiratory Respiratory: Clear to ausultation casey. No: Distress, Labored - Abdomen Abdomen: Normal Bowel sounds. No: Tender to palpation - Derm Derm: Normal color, Warm and dry, Bruising (Some areas of superficial bruising on her arms which appear to be healing well) - Extremities Extremities: Normal, Bruising. No: Deformity, Tenderness - Neuro Neuro: Alert and Oriented X 3, CNII-XII intact - GCS Eye Opening: Spontaneous Motor: Obeys Commands Verbal: Oriented Total: 15 Results - Vitals Vitals: Vital Signs - 24 hr 04/21/22 04/21/22 04/21/22 16:37 17:28 18:09 Temperature 37.1 C Heart Rate 85 79 Heart Rate [ 90 Sitting] Heart Rate [ 94 Standing] Heart Rate [ 84 Supine] Respiratory 16 14 Rate Blood Pressure 127/109 H 147/97 H Blood Pressure 122/69 [Sitting] Blood Pressure 80/48 L [Standing] Blood Pressure 135/80 H [Supine] O2 Saturation 100 99 Oxygen O2 Source [With Activity] Nasal cannula O2 Source [Without Activity] Room air O2 Source Room air - EKG (time done) 1651 Rate: Rate (enter#) (78) Rhythm: Atrial fibrillation [place]: Posterior hemiblock Intervals: LBBB QRS: Poor R wave progression Compare to prior EKG: Unchanged from prior EKG Computer interpretation: Agree with computer - Labs Labs: Laboratory Tests 04/21/22 04/21/22 04/21/22 17:15 17:15 17:15 WBC 7.1 RBC 4.44 Hgb 13.0 Hct 41.9 MCV 94.4 MCH 29.3 MCHC 31.0 L RDW 14.2 Plt Count 223 MPV 10.1 Neut # (Auto) 5.4 Lymph # (Auto) 1.1 L Reynolds # (Auto) 0.5 Eos # (Auto) 0.1 Baso # (Auto) 0.0 Absolute Nucleated RBC 0.00 Nucleated RBC % 0.0 Sodium 139 Potassium 3.7 Chloride 96 L Carbon Dioxide 32 Anion Gap 11.0 BUN 28 H Creatinine 1.2 H Estimated GFR (MDRD) 43 L Glucose 152 H Calcium 9.3 Total Bilirubin 1.2 H AST 19 ALT 13 Alkaline Phosphatase 89 B-Natriuretic Peptide 525 H Total Protein 7.1 Albumin 3.3 Globulin 3.8 Albumin/Globulin Ratio 0.9 L Lipase 29 - Rads (name of study) cxr Radiology: Final report received (Moderate edema versus atypical pneumonia. Small right pleural effusion) Head CT Radiology: Final report received (No acute intracranial abnormality. Chronic right frontal lobe infarct.) PD Medical Decision Making - ED course Complexity details: reviewed results, re-evaluated patient, considered differential, d/w patient, d/w family ED course: 81-year-old female was brought into the emergency department for evaluation of altered mental status/lethargic event at home. She was sitting at the table with her and a staff member from [facility]. It appeared to them that she had fallen asleep. Her asked for help moving her from the wheeled walker to the chair/recliner however when they attempted to stand her up she would not wake up. EMS was summoned and on scene she was already awake. She had a normal glucose and did not really want to be transported to the hospital but her insisted. Here in the ER she presented nonfocal. I suspect she has some mild dementia but she was otherwise a reasonable historian. She denied any chest pain or shortness of air. We did complete an EKG that showed atrial fibrillation though no ischemic changes. I also obtained a CBC and electrolytes as well as a BNP. There were no findings to suggest worrisome causes. There was no leukocytosis significant anemia. She does have known chronic kidney disease with a mildly elevated BUN of 22 and a creatinine of 1.2. However this is unchanged from baseline. Her BNP is in the 500s which is reduced from previous. Clinically she does not appear to have overt heart failure. Radiologist interprets her chest x-ray is some mild volume overload versus an atypical pneumonia. Though she has no cough or fevers given her advanced age and the 's concern that she really was too sleepy we will write a prescription for some azithromycin and Vantin in order to treat this finding on x-ray. They are advised to have the x- ray repeated in 2 to 4 weeks to ensure resolution of this process. Ultimately I suspect that this patient simply fell asleep. Clinically nothing suggest an acute stroke. We did check orthostatics. The initial set of orthostatic vital signs showed a blood pressure of 80/60 with standing. However I asked nursing staff to ambulate her in the hallway and she did well with a walker. When she returned to the bedside we repeated the blood standing blood pressure which was normal therefore I think this initial blood pressure was an error. Patient is discharged home in stable condition. Emergent worrisome return precautions discussed Departure - Departure Disposition: Home, Self Care Clinical Impression: Lethargic Condition: Stable Record reviewed to determine appropriate education?: Yes Prescriptions: Azithromycin 250 mg PO DAILY #6 tablet Cefpodoxime Proxetil [Vantin] 100 mg PO Q12H #14 tablet Comments: Gina came to the emergency department today because there was an event at home where it sounds like she fell asleep and when she tried to move from the wheeled walker to her chair/recliner she was unable to get up and move. Here in the ER the chest x-ray suggest that she may have a pneumonia though this is a very subtle finding. She does not have a fever or high white blood cell count. However in case this could be a cause of her problems [place] a CT of the head that did not show any new findings though she does have some global brain shrinkage which is common with age as well as signs that she is previously had strokes in the past. Her labs today in the emergency department did not show any worrisome findings or changes from her known baseline. I think that she was simply quite sleepy. Here in the emergency department she has been at her usual baseline health and she has been able to ambulate with a walker. She should always use a walker when at home. Please discuss this ED visit with her primary care doctor. Return here for any worsening concerns
[2022-04-21 17:21] LABS: BASOPHILS % (AUTO) 0.6 %; EOSINOPHILS # (AUTO) 0.1 10^3/uL (0.0-0.7); EOSINOPHILS % (AUTO) 1.8 %; HCT - HEMATOCRIT 41.9 % (37.0-47.0); LYMPHOCYTES # (AUTO) 1.1 10^3/uL (1.5-3.5); LYMPHOCYTES % (AUTO) 14.9 %; MEAN CORPUSCULAR HEMOGLOBIN 29.3 pg (27.0-31.0); MEAN CORPUSCULAR VOLUME 94.4 fL (81.0-99.0); MEAN PLATELET VOLUME 10.1 fL (7.9-10.8); MONOCYTES # (AUTO) 0.5 10^3/uL (0.0-1.0); MONOCYTES % (AUTO) 6.6 %; NEUTROPHILS # (AUTO) 5.4 10^3/uL (1.5-6.6); NEUTROPHILS % (AUTO) 75.7 %; PLT - PLATELET COUNT 223 10^3/uL (130-450); RED BLOOD COUNT 4.44 10^6/uL (4.20-5.40); RED CELL DISTRIBUTION WIDTH 14.2 % (12.0-15.0); WHITE BLOOD COUNT 7.1 x10^3/uL (4.8-10.8)
[2022-04-21 17:36] LABS: ALBUMIN 3.3 g/dL (3.2-5.5); ALBUMIN/GLOBULIN RATIO 0.9 (1.0-2.2); BILIRUBIN,TOTAL 1.2 mg/dL (0.2-1.0); CALCIUM 9.3 mg/dL (8.5-10.3); CREATININE 1.2 mg/dL (0.4-1.0); POTASSIUM 3.7 mmol/L (3.5-5.0); TOTAL PROTEIN 7.1 g/dL (6.7-8.2)
--- NOTE | 2022-04-21 17:52 | CT Report ---
PROCEDURE: HEAD WO INDICATIONS: lethargy TECHNIQUE: Noncontrast 4.5 mm thick angled axial sections acquired from the foramen magnum to the vertex. For r adiation dose reduction, the following was used: automated exposure control, adjustment of mA and/or kV according to patient size. COMPARISON: None. FINDINGS: Image quality: Excellent. CSF spaces: Basal cisterns are patent. No extra-axial fluid collections. Ventricles are normal in size and shape. Brain: No midline shift. Chronic right posterior lateral frontal lobe infarct. No intracranial adam s or hemorrhage. Cortes-white matter interface is normal. Skull and face: Calvarium and visualized facial bones are intact, without suspicious lesions. Sinuses: Visualized sinuses and mastoids are clear. IMPRESSION: 1. No acute intracranial abnormality. 2. Chronic right frontal lobe infarct. Reviewed by: Yasmin Mak MD on 04/21/2022 5:50 PM PST Approved by: Yasmin Mak MD on 04/21/2022 5:50 PM PST Station ID: [id number]
--- NOTE | 2022-04-21 18:07 | XRAY Report ---
PROCEDURE: Chest 1 View X-Ray INDICATIONS: chest pain TECHNIQUE: One view of the chest was acquired. COMPARISON: None. FINDINGS: Surgical changes and devices: Cervical thoracic fusion hardware is present. Lungs and pleura: No pneumothorax. Small right pleural effusion. There is moderate diffuse reticulon odular pulmonary opacity. Mediastinum: Mediastinal contours appear normal. Heart size is normal. Bones and chest wall: No suspicious bony lesions. Overlying soft tissues appear unremarkable. IMPRESSION: Moderate edema versus atypical pneumonia. Small right pleural effusion. Reviewed by: Yasmin Mak MD on 04/21/2022 6:05 PM [facility] Approved by: Yasmin Mak MD on 04/21/2022 6:05 PM [facility] Station ID: [id number]
[2022-04-21 18:30] VITALS: BP 115/64
== END 2022-04-21 18:47 | disposition home or self-care (01) ==
LOC: EDUNIT# → ED 16:35
DX: R53.83 Other fatigue (principal); I10 Essential (primary) hypertension; I48.91 Unspecified atrial fibrillation; Z79.01 Long term (current) use of anticoagulants; E11.9 Type 2 diabetes mellitus without complications; Z79.84 Long term (current) use of oral hypoglycemic drugs
CPT/HCPCS: 36415; 80053; 83690; 83880; 85025; 93005; 99284

== ENCOUNTER 2022-07-17 20:08 | Outpatient (CLI) | payer MEDICARE, OTHER | END 2022-07-17 23:59 | disposition EMS.NT | LOC: EMS 20:08 | DX: Z03.89 Encounter for observation for other suspected diseases and conditions ruled out (principal) ==

== ENCOUNTER 2022-07-23 10:11 | Outpatient (CLI) | payer MEDICARE, OTHER ==
[2022-07-23 11:47] LABS: BASOPHILS % (AUTO) 0.5 %; EOSINOPHILS # (AUTO) 0.2 10^3/uL (0.0-0.7); EOSINOPHILS % (AUTO) 2.4 %; HCT - HEMATOCRIT 36.8 % (37.0-47.0); HGB - HEMOGLOBIN 10.9 g/dL (12.0-16.0); LYMPHOCYTES # (AUTO) 1.1 10^3/uL (1.5-3.5); MEAN CORPUSCULAR HEMOGLOBIN 27.4 pg (27.0-31.0); MEAN CORPUSCULAR HGB CONC 29.6 g/dL (32.0-36.0); MEAN CORPUSCULAR VOLUME 92.5 fL (81.0-99.0); MEAN PLATELET VOLUME 10.2 fL (7.9-10.8); MONOCYTES # (AUTO) 0.5 10^3/uL (0.0-1.0); MONOCYTES % (AUTO) 7.8 %; NEUTROPHILS # (AUTO) 4.5 10^3/uL (1.5-6.6); PLT - PLATELET COUNT 278 10^3/uL (130-450); RED BLOOD COUNT 3.98 10^6/uL (4.20-5.40); RED CELL DISTRIBUTION WIDTH 15.3 % (12.0-15.0); WHITE BLOOD COUNT 6.3 x10^3/uL (4.8-10.8)
[2022-07-23 12:19] LABS: ALBUMIN 3.5 g/dL (3.2-5.5); ALKALINE PHOSPHATASE 95 IU/L (42-121); ALT ALANINE AMINOTRANSFERASE 18 IU/L (10-60); AST ASPARTATE AMINOTRANSFERASE 17 IU/L (10-42); BILIRUBIN,TOTAL 0.8 mg/dL (0.2-1.0); BUN - BLOOD UREA NITROGEN 18 mg/dL (6-20); CALCIUM 9.1 mg/dL (8.5-10.3); CARBON DIOXIDE - CO2 33 mmol/L (21-32); CHLORIDE 102 mmol/L (101-111); CHOL/HDL RATIO 3.5 (<4.4); CHOLESTEROL 92 mg/dL; GFR - MDRD 53 (>89); GLUCOSE 122 mg/dL (70-100); HDL CHOLESTEROL 26 mg/dL; LDL CHOLESTEROL,CALCULATED 45 mg/dL; LDL/HDL RATIO 1.7 (<4.4); POTASSIUM 3.5 mmol/L (3.5-5.0); SODIUM 141 mmol/L (135-145); TOTAL PROTEIN 7.1 g/dL (6.7-8.2); TRIGLYCERIDES 105 mg/dL; VLDL CHOLESTEROL 21 mg/dL
[2022-07-23 12:29] LABS: FREE T3 2.7 pg/mL (2.5-3.9); THYROID STIMULATING HORMONE 0.42 uIU/mL (0.34-5.60)
[2022-07-23 12:30] LABS: FREE T4 (FREE THYROXINE) 1.39 ng/dL (0.58-1.64)
[2022-07-23 12:52] LABS: ESTIMATED AVERAGE GLUCOSE 128 mg/dL (70-100); HEMOGLOBIN A1c% 6.1 % (4.27-6.07)
== END 2022-07-23 10:12 | disposition home or self-care (01) ==
LOC: LAB.N 10:11
PROVIDERS: ATTEND Family Medicine
DX: E87.6 Hypokalemia (principal); I27.20 Pulmonary hypertension, unspecified; Z79.01 Long term (current) use of anticoagulants; I48.91 Unspecified atrial fibrillation; I65.29 Occlusion and stenosis of unspecified carotid artery; M48.061 Spinal stenosis, lumbar region without neurogenic claudication; M48.02 Spinal stenosis, cervical region; E11.9 Type 2 diabetes mellitus without complications; E79.0 Hyperuricemia without signs of inflammatory arthritis and tophaceous disease; E03.9 Hypothyroidism, unspecified; R29.6 Repeated falls; Q21.12 Patent foramen ovale
CPT/HCPCS: 36415; 80053; 80061; 83036; 83721; 84439; 84443; 84481; 85025

== ENCOUNTER 2023-01-07 16:23 | Outpatient (CLI) | payer MEDICARE, OTHER ==
[2023-01-07 20:35] LABS: ABSOLUTE RETICS # AUTO 0.089 10^6/uL (0.020-0.110); BASOPHILS % (AUTO) 0.6 %; EOSINOPHILS # (AUTO) 0.3 10^3/uL (0.0-0.7); EOSINOPHILS % (AUTO) 4.1 %; HGB - HEMOGLOBIN 11.7 g/dL (12.0-16.0); LYMPHOCYTES # (AUTO) 1.1 10^3/uL (1.5-3.5); LYMPHOCYTES % (AUTO) 16.2 %; MEAN CORPUSCULAR HEMOGLOBIN 27.8 pg (27.0-31.0); MEAN CORPUSCULAR HGB CONC 30.8 g/dL (32.0-36.0); MEAN CORPUSCULAR VOLUME 90.3 fL (81.0-99.0); MEAN PLATELET VOLUME 10.2 fL (7.9-10.8); MONOCYTES # (AUTO) 0.5 10^3/uL (0.0-1.0); MONOCYTES % (AUTO) 7.8 %; NEUTROPHILS # (AUTO) 4.8 10^3/uL (1.5-6.6); NEUTROPHILS % (AUTO) 70.9 %; PLT - PLATELET COUNT 253 10^3/uL (130-450); RED BLOOD COUNT 4.21 10^6/uL (4.20-5.40); RED CELL DISTRIBUTION WIDTH 18.3 % (12.0-15.0); RETICULOCYTE COUNT % (AUTO) 2.11 % (0.5-2.3); WHITE BLOOD COUNT 6.8 x10^3/uL (4.8-10.8)
[2023-01-07 20:56] LABS: CALCIUM 9.8 mg/dL (8.5-10.3); CREATININE 0.9 mg/dL (0.6-1.3); POTASSIUM 4.1 mmol/L (3.5-4.5)
[2023-01-07 21:34] LABS: FERRITIN 35.5 ng/mL (11.0-306.8)
[2023-01-07 22:08] LABS: ESTIMATED AVERAGE GLUCOSE 143 mg/dL (70-100); HEMOGLOBIN A1c% 6.6 % (4.27-6.07)
== END 2023-01-07 16:24 | disposition home or self-care (01) ==
LOC: LAB.N 16:23
PROVIDERS: ATTEND Family Medicine
DX: E11.9 Type 2 diabetes mellitus without complications (principal); D64.9 Anemia, unspecified; I27.20 Pulmonary hypertension, unspecified; Z79.01 Long term (current) use of anticoagulants; I11.0 Hypertensive heart disease with heart failure; I48.91 Unspecified atrial fibrillation
CPT/HCPCS: 36415; 80048; 82607; 82728; 82746; 83036; 83540; 84466; 85025; 85045

== ENCOUNTER 2023-01-26 13:55 | Outpatient (CLI) | payer MEDICARE, OTHER ==
[2023-01-26] MEDS ORDERED: iohexoL-300 100 ML VIAL IVP ONE (14:49)
--- NOTE | 2023-01-26 16:41 | CT Report ---
PROCEDURE: CHEST W INDICATIONS: PULMONARY ASBESTOSIS CONTRAST: 100ml Omni 300 TECHNIQUE: After the administration of intravenous contrast, 1 mm axial images were acquired from the pulmonary apices through the posterior costophrenic angles. Axial 5 mm soft tissue kernel reconstructions were performed as well as 8 mm axial MIP and coronal and sagittal 5 mm reformations. For radiation dose reduction, the following was used: automated exposure control, adjustment of mA and/or kV according to patient size. COMPARISON: Chest x-ray 12/24/[address] 06/21/2020 FINDINGS: Image quality: Excellent. Lungs and pleura: Slight enlargement of the chronic right pleural effusion. Septal thickening, pleura l calcification, and scarring is present in the right lung base, increased compared to the prior exam . Partially calcified patchy pleural plaquing is also seen anteriorly in the left lung. No suspicious nodule or lung mass. No acute groundglass opacity to suggest acute illness. Bilateral perihilar bron chial wall thickening. Central airway is normal. Mediastinum: Heart size is mildly enlarged with moderate to heavy coronary artery calcification. No p ericardial effusion. No large vessel abnormality. Moderate thoracic aortic calcification. No mediasti nal adenopathy by size criteria. Chest wall and lower neck: The thyroid gland is diminutive. No axillary or supraclavicular adenopathy by size. Bones: Cervicothoracic fusion hardware is seen. Multilevel bridging osteophytes throughout the spine. No vertebral body fractures. Upper Abdomen: The pancreas is diminutive and there are several rounded hypodensities in the body and proximal tail, one of the largest measuring 1.9 cm. The visible portions of the other upper abdomina l organs are unremarkable. IMPRESSION: 1. Since CT scan over 2 years ago, there has been mild interval increase in size of a chronic right p leural effusion and increased right basal septal thickening. 2. Bilateral partially calcified pleural plaquing and above findings are most consistent for pulmonar y asbestosis. 3. Moderate to heavy coronary artery calcification. 4. Pancreatic cystic masses, previously not well seen due to lack of IV contrast. Consider contrast-e nhanced MR pancreas for further evaluation. Reviewed by: Yissel Mae MD on 01/26/2023 4:40 PM PDT Approved by: Yissel Mae MD on 01/26/2023 4:40 PM PDT Station ID: [id number]
== END 2023-01-26 13:56 | disposition home or self-care (01) ==
LOC: DI 13:55
PROVIDERS: ATTEND Registered Nurse
DX: J61 Pneumoconiosis due to asbestos and other mineral fibers (principal); J90 Pleural effusion, not elsewhere classified; I25.10 Atherosclerotic heart disease of native coronary artery without angina pectoris; K86.2 Cyst of pancreas
CPT/HCPCS: 71260; Q9967

== ENCOUNTER 2023-02-09 12:47 | Outpatient (CLI) | payer MEDICARE, OTHER ==
[~2023-02-09 12:47] MED LIST changes: +GADOTERATE MEGLUMINE 10 MMOL/20 ML VIAL ONE; -LIDO GARGLE 30 ML BOTTLE ONE
[2023-02-09 13:16] LABS: CREATININE 0.8 mg/dL (0.6-1.3)
[2023-02-09] MEDS ORDERED: GADOTERATE MEGLUMINE 10 MMOL/20 ML VIAL IVP ONE (17:45)
--- NOTE | 2023-02-25 09:11 | MRI Report ---
PROCEDURE: ABDOMEN W/WO INDICATIONS: MASS OF PANCREAS CONTRAST: clariscan 15.4ml TECHNIQUE: Coronal ultra fast SE, axial 2D spoiled GE in- and [id number]; axial breath-hold T2 fast SE. Dynam ic axial ultra fast GE during the administration of contrast; post-contrast coronal ultra fast GE or 2D spoiled GE with fat saturation from the hepatic dome to the iliac crests. Optional diffusion weig hted imaging and ADC may be performed. COMPARISON: CT chest 01/26/2023, CT abdomen pelvis 06/21/2020 FINDINGS: Image quality: Adequate.. Exam is decreased due to patient's difficulty with breath holding and subop timal visualization of the area of interest Lung bases and heart: Cardiomegaly. Small right pleural effusion. Liver: No solid mass. Right lobe cyst present. Gallbladder and biliary tree: Probable focal fundal adenomyomatosis of the gallbladder. No intra or e xtrahepatic biliary dilatation. Spleen: No splenomegaly. Pancreas: Diminutive pancreas without ductal dilatation. Multiloculated cystic mass with thin christian t he body of the pancreas measuring 2.7 cm. The largest locule measures 1.9 cm. Cystic mass of clustere d microcysts in the uncinate process is best seen on coronal series 2 image 11. A unilocular cyst in the proximal pancreatic tail appears to have connection with the nondilated pancreatic duct. One or 2 more unilocular cysts are present in the uncinate process. No visible solid components or other marla d masses. Degree of enhancement is not well assessed due to motion artifact on postcontrast sequences . Adrenals: No adrenal nodule. Kidneys and ureters: No hydronephrosis. No renal cystic lesion which requires follow up. No solid mas s. Bowel and peritoneum: Stomach and visible bowel loops are normal. Lymph nodes: No central or retroperitoneal adenopathy. Vessels: Normal caliber vasculature. Moderate abdominal aortic atherosclerosis. Bones: Surgical changes of lower lumbar fusion. Other: No significant ventral hernia. IMPRESSION: 1. Numerous cystic masses throughout the pancreas without pancreatic ductal dilatation. 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 2. Follow-up in one year to document stability is recommended. Follow-up imaging with pancreatic prot ocol CT is recommended due to patient's difficulty with MRI. Reviewed by: Yissel Mae MD on 02/25/2023 9:10 AM PST Approved by: Yissel Mae MD on 02/25/2023 9:10 AM PST Station ID: [id number]
== END 2023-02-09 12:48 | disposition home or self-care (01) ==
LOC: DI 12:47
PROVIDERS: ATTEND Family Medicine
DX: K86.89 Other specified diseases of pancreas (principal)
CPT/HCPCS: 36415; 74183; 82565; A9575

== ENCOUNTER 2023-02-13 14:41 | Outpatient (CLI) | payer MEDICARE, OTHER | END 2023-02-13 14:42 | disposition EMS.NT | LOC: EMS 14:41 | DX: R51.9 Headache, unspecified (principal) ==

== ENCOUNTER 2023-04-09 16:57 | Outpatient (CLI) | payer MEDICARE, OTHER | END 2023-04-09 16:58 | disposition EMS.NT | LOC: EMS 16:57 | DX: S09.90XA Unspecified injury of head, initial encounter (principal); M54.2 Cervicalgia; M54.9 Dorsalgia, unspecified; W18.39XA Other fall on same level, initial encounter; Y92.008 Other place in unspecified non-institutional (private) residence as the place of occurrence of the external cause ==

== ENCOUNTER 2023-08-27 01:57 | Outpatient (CLI) | payer MEDICARE, OTHER | END 2023-08-27 23:59 | disposition EMS.NT | LOC: EMS 01:57 | DX: R42 Dizziness and giddiness (principal); I10 Essential (primary) hypertension ==

== ENCOUNTER 2023-11-15 18:40 | Outpatient (CLI) | payer MEDICARE, OTHER | END 2023-11-15 23:59 | disposition critical access hospital (66) | LOC: EMS 18:40 | DX: S00.83XA Contusion of other part of head, initial encounter (principal); M54.2 Cervicalgia; M54.50 Low back pain, unspecified; W19.XXXA Unspecified fall, initial encounter; Y92.009 Unspecified place in unspecified non-institutional (private) residence as the place of occurrence of the external cause; Z79.01 Long term (current) use of anticoagulants; I48.91 Unspecified atrial fibrillation; F03.90 Unspecified dementia, unspecified severity, without behavioral disturbance, psychotic disturbance, mood disturbance, and anxiety | CPT/HCPCS: A0425; A0429 ==

== ENCOUNTER 2023-11-15 18:56 | Emergency (ER) | payer MEDICARE, OTHER ==
--- NOTE | 2023-11-15 19:15 | ED Physician Documentation ---
History of Present Illness - Stated complaint Stated Complaint: GLF - Chief complaint Chief Complaint: Trauma Hd/Nk - History obtained from History obtained from: Patient, EMS - Additonal information Additional information: 83-year-old woman with dementia on Eliquis for A-fib and reportedly lives alone. Neighbors come and check on her occasionally and has apparently fallen. She does not remember the fall. Last seen normal 2 days ago. History is limited because of confusion which reportedly is baseline. 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: Breast cancer : 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 HEENT: None Psych: None Musculoskeletal: Osteoarthritis Derm: None - Past Surgical History Past Surgical History: Yes General: Colonoscopy, EGD Ortho: Hip replacement, Spine surgery /QUALITY CONTROL ENGINEERING TECHNICIAN: Hysterectomy, Other HEENT: Cataracts - Present Medications Home Medications: Ambulatory Orders Medication Instructions Recorded Confirmed Terazosin [Hytrin] 5 mg PO BID 08/11/12 01/07/22 Multivitamin [Multivitamins] 1 each PO DAILY 10/06/12 01/07/22 Potassium Chloride [Micro-K] 20 meq PO BIDWM 10/06/12 01/07/22 Oxybutynin Chloride [Ditropan Xl] 15 mg PO DAILY PM 10/23/17 01/07/22 Apixaban [Eliquis] 5 mg BID 02/22/19 01/07/22 metFORMIN [Glucophage] 250 mg PO BID 02/22/19 01/07/22 Furosemide [Lasix] 40 mg PO DAILY #10 tablet 07/02/19 01/07/22 Ferrous Gluconate [Iron] 240 mg PO DAILY 11/24/19 01/07/22 Atorvastatin [Lipitor] 20 mg PO DAILY PM 06/20/20 01/07/22 Levothyroxine Sodium [Synthroid] 175 mcg PO QDAC 06/20/20 01/07/22 Losartan Potassium [Cozaar] 100 mg PO DAILY PM 06/20/20 01/07/22 carvediloL [Coreg] 25 mg PO BID 06/20/20 01/07/22 Amox/Clav 875/125 [Augmentin] 1 each PO Q12H #14 tablet 06/22/20 01/07/22 Magnesium Oxide [Mag Ox] 400 mg PO DAILY #10 tablet 12/04/20 01/07/22 Potassium Chloride [Micro-K] 10 meq PO BIDWM 10 Days #20 12/04/20 01/07/22 Acetaminophen [Acetaminophen Extra 500 mg PO QID PRN #50 tablet 12/12/21 01/07/22 Strength] Ondansetron Odt [Zofran] 4 mg TL Q6H PRN #10 tablet 12/12/21 01/07/22 oxyCODONE [Roxicodone] 5 mg PO Q4-6H PRN #15 tablet 12/12/21 01/07/22 Amox/Clav 875/125 [Augmentin] 1 each PO Q12H #14 tablet 12/26/21 01/07/22 Doxycycline Hyclate 100 mg PO BID #14 tab 12/26/21 01/07/22 Azithromycin 250 mg PO DAILY #6 tablet 04/21/22 Cefpodoxime Proxetil [Vantin] 100 mg PO Q12H #14 tablet 04/21/22 - Allergies Allergies/Adverse Reactions: Allergies Allergy/AdvReac Type Severity Reaction Status Date / Time codeine [Codeine] Allergy Unknown Rash Verified 11/15/23 19:08 GLORIA Inhibitors Allergy Unknown Verified 11/15/23 19:08 iodine Allergy Unknown Verified 11/15/23 19:08 tramadol Allergy Unknown Verified 11/15/23 19:08 shellfish derived AdvReac Unknown Unknown Verified 11/15/23 19:08 Calcium Channel Blocking AdvReac Edema Verified 11/15/23 19:08 Agents-Dih - Social History Does the pt smoke?: No Smoking Status: Never smoker Does the pt drink ETOH?: No Does the pt have substance abuse?: No - Immunizations Immunizations are current?: Yes - POLST Patient has POLST: No POLST Status: Full Code PD ED PE NORMAL - Vitals Vital signs reviewed: Yes - General General: Other (She is alert and oriented times person and place but not time or events. She is disheveled wearing a diaper that looks like it has not been changed in days.) - HEENT HEENT: PERRL, EOMI, Other (Mild left periorbital abrasions and contusions) - Neck Neck: No bony TTP - Cardiac Cardiac: RRR, No murmur - Respiratory Respiratory: No respiratory distress, Clear bilaterally - Abdomen Abdomen: Soft, Non tender - Back Back: No CVA TTP, No spinal TTP - Derm Derm: Normal color, Warm and dry - Extremities Extremities: Other (Pain with range of motion to both hips, right worse than left, but is able to range them somewhat. She has multiple sores on both lower extremities.) - Neuro Neuro: informatics physician 2-12 intact, No motor deficit, No sensory deficit Eye Opening: Spontaneous Motor: Obeys Commands Verbal: Confused GCS Score: 14 Results - Vitals Vitals: Vital Signs - 24 hr 11/15/23 11/15/23 19:03 19:37 Temperature 36.9 C Heart Rate 112 H 77 Respiratory 18 20 Rate Blood Pressure 180/112 H 177/99 H O2 Saturation 95 93 Oxygen O2 Source [] Nasal cannula O2 Source [] Room air O2 Source Room air - Labs Labs: Laboratory Tests 11/15/23 11/15/23 11/15/23 19:24 19:24 19:24 WBC 9.4 RBC 4.89 Hgb 13.3 Hct 42.5 MCV 86.9 MCH 27.2 MCHC 31.3 L RDW 17.7 H Plt Count 316 MPV 9.7 Neut # (Auto) 7.3 H Lymph # (Auto) 1.1 L [place] # (Auto) 0.8 Eos # (Auto) 0.1 Baso # (Auto) 0.1 Absolute Nucleated RBC 0.00 Nucleated RBC % 0.0 PT 14.0 H INR 1.3 H Sodium 139 Potassium 3.3 L Chloride 100 L Carbon Dioxide 28 Anion Gap 11.0 BUN 23 H Creatinine 0.8 Estimated GFR (MDRD) 68 L Glucose 122 H Calcium 9.4 Total Bilirubin 1.6 H AST 22 ALT 18 Alkaline Phosphatase 135 H Total Creatine Kinase 283 H Total Protein 7.3 Albumin 3.5 Globulin 3.8 Albumin/Globulin Ratio 0.9 L Lipase < 10 L Urine Color Urine Clarity Urine pH Ur Specific [place] Urine Protein Urine Glucose (UA) Urine Ketones Urine Occult Blood Urine Nitrite Urine Bilirubin Urine Urobilinogen Ur Leukocyte Esterase Urine RBC Urine WBC Ur Squamous Epith Cells Amorphous Sediment Urine Bacteria Ur Microscopic Review Urine Culture Comments Urine Opiates Screen Ur Buprenorphine Scrn Ur Oxycodone Screen Urine Methadone Screen Ur Barbiturates Screen Ur Tricyclics Screen Ur Phencyclidine Scrn Ur Amphetamine Screen U Methamphetamines Scrn U Benzodiazepines Scrn Urine Cocaine Screen U Cannabinoids Screen Ur Drug Screen Comment Ethyl Alcohol < 10.0 11/15/23 20:15 WBC RBC Hgb Hct MCV MCH MCHC RDW Plt Count MPV Neut # (Auto) Lymph # (Auto) [place] # (Auto) Eos # (Auto) Baso # (Auto) Absolute Nucleated RBC Nucleated RBC % PT INR Sodium Potassium Chloride Carbon Dioxide Anion Gap BUN Creatinine Estimated GFR (MDRD) Glucose Calcium Total Bilirubin AST ALT Alkaline Phosphatase Total Creatine Kinase Total Protein Albumin Globulin Albumin/Globulin Ratio Lipase Urine Color YELLOW Urine Clarity CLOUDY Urine pH 6.0 Ur Specific [place] 1.025 Urine Protein 30 H Urine Glucose (UA) NEGATIVE Urine Ketones 15 H Urine Occult Blood MODERATE H Urine Nitrite POSITIVE H Urine Bilirubin NEGATIVE Urine Urobilinogen 0.2 (NORMAL) Ur Leukocyte Esterase LARGE H Urine RBC TNTC H Urine WBC >25 H Ur Squamous Epith Cells FEW Squamous Amorphous Sediment Marked Urine Bacteria Many H Ur Microscopic Review INDICATED Urine Culture Comments INDICATED Urine Opiates Screen NEGATIVE Ur Buprenorphine Scrn NEGATIVE Ur Oxycodone Screen NEGATIVE Urine Methadone Screen NEGATIVE Ur Barbiturates Screen NEGATIVE Ur Tricyclics Screen NEGATIVE Ur Phencyclidine Scrn NEGATIVE Ur Amphetamine Screen NEGATIVE U Methamphetamines Scrn NEGATIVE U Benzodiazepines Scrn NEGATIVE Urine Cocaine Screen NEGATIVE U Cannabinoids Screen NEGATIVE Ur Drug Screen Comment CUTOFF CONC BELOW: Ethyl Alcohol - Rads (name of study) D CT head and cervical spine without contrast were negative except for postoperative changes in the neck. Relevant Findings:: Final report received, EMP independent interpretation of test CT Chest Relevant Findings:: Final report received (CT chest without contrast demonstrates no obvious severe traumatic injuries. Right upper lobe groundglass opacity likely infectious, chronic right pleural and new left pleural effusion), EMP independent interpretation of test CT abdomen pelvis showing a cystic area within the body of the pancreas and better evaluated on prior MRI. No traumatic injuries. Relevant Findings:: Final report received, EMP independent interpretation of test PD Medical Decision Making - ED course ED course: 83-year-old woman who apparently has severe dementia fell at home and now presents by ambulance. I was able to talk to the [id number] by phone who tells me that the patient has a son in [place] and a daughter in [place]. The son should be coming up tomorrow. She also tells me that the patient has a restraining order against her and affect since last January and the is currently in a SNF. She did not know the contact information for the son. Janice Allen ([id number]) [phone] (Hm) Subsequently she was identified to have pyuria and likely a pneumonia on chest CT with pleural effusion. Her PSI score is 105 points with recommendation for admission. Blood cultures were ordered and lactate as well as ceftriaxone and azithromycin for CAP. I was notified shortly thereafter that we do not have a bed in this hospital for this unfortunate woman and she is boarding in the emergency department pending bed availability. I put in boarding orders with request for social work consults, scheduled antibiotics, Eliquis, Synthroid, PT and OT, and repeat labs. Departure - Departure Disposition: [facility] DC/Xfer Clinical Impression: Delirium Pneumonia Qualifiers: Pneumonia type: due to unspecified organism Laterality: right Lung location: unspecified part of lung Qualified Code(s): J18.9 - Pneumonia, unspecified organism UTI (urinary tract infection) Qualifiers: Urinary tract infection type: site unspecified Hematuria presence: without hematuria Qualified Code(s): N39.0 - Urinary tract infection, site not specified Fall Qualifiers: Encounter type: initial encounter Qualified Code(s): W19.XXXA - Unspecified fall, initial encounter Facial contusion Qualifiers: Encounter type: initial encounter Qualified Code(s): S00.83XA - Contusion of other part of head, initial encounter Atrial fibrillation Qualifiers: Atrial fibrillation type: unspecified Qualified Code(s): I48.91 - Unspecified a trial fibrillation Advanced dementia Qualifiers: Dementia type: unspecified type Dementia behavioral or psychological symptom: unspecified whether behavioral, psychotic, or mood disturbance or anxiety Qualified Code(s): F03.C0 - Unspecified dementia, severe, without behavioral disturbance, psychotic disturbance, mood disturbance, and anxiety Condition: Serious Forms: PCP List
[2023-11-15 19:29] LABS: BASOPHILS # (AUTO) 0.1 10^3/uL (0.0-0.1); BASOPHILS % (AUTO) 0.5 %; EOSINOPHILS # (AUTO) 0.1 10^3/uL (0.0-0.7); EOSINOPHILS % (AUTO) 0.6 %; HCT - HEMATOCRIT 42.5 % (37.0-47.0); HGB - HEMOGLOBIN 13.3 g/dL (12.0-16.0); LYMPHOCYTES # (AUTO) 1.1 10^3/uL (1.5-3.5); LYMPHOCYTES % (AUTO) 11.8 %; MEAN CORPUSCULAR HEMOGLOBIN 27.2 pg (27.0-31.0); MEAN CORPUSCULAR HGB CONC 31.3 g/dL (32.0-36.0); MEAN CORPUSCULAR VOLUME 86.9 fL (81.0-99.0); MEAN PLATELET VOLUME 9.7 fL (7.9-10.8); MONOCYTES # (AUTO) 0.8 10^3/uL (0.0-1.0); NEUTROPHILS # (AUTO) 7.3 10^3/uL (1.5-6.6); NEUTROPHILS % (AUTO) 77.8 %; PLT - PLATELET COUNT 316 10^3/uL (130-450); RED BLOOD COUNT 4.89 10^6/uL (4.20-5.40); RED CELL DISTRIBUTION WIDTH 17.7 % (12.0-15.0); WHITE BLOOD COUNT 9.4 x10^3/uL (4.8-10.8)
[2023-11-15 19:37] LABS: INR 1.3 (0.8-1.2)
[2023-11-15 19:48] LABS: ALBUMIN 3.5 g/dL (3.2-5.5); ALBUMIN/GLOBULIN RATIO 0.9 (1.0-2.2); ALKALINE PHOSPHATASE 135 IU/L (42-121); ALT ALANINE AMINOTRANSFERASE 18 IU/L (10-60); AST ASPARTATE AMINOTRANSFERASE 22 IU/L (10-42); BILIRUBIN,TOTAL 1.6 mg/dL (0.2-1.0); BUN - BLOOD UREA NITROGEN 23 mg/dL (6-20); CALCIUM 9.4 mg/dL (8.5-10.3); CARBON DIOXIDE - CO2 28 mmol/L (21-32); CHLORIDE 100 mmol/L (101-111); CK- CREATINE KINASE 283 IU/L (30-223); CREATININE 0.8 mg/dL (0.6-1.3); ETOH - ETHANOL < 10.0 mg/dL; GFR - MDRD 68 (>89); GLUCOSE 122 mg/dL (74-104); POTASSIUM 3.3 mmol/L (3.5-4.5); SODIUM 139 mmol/L (135-145); TOTAL PROTEIN 7.3 g/dL (6.4-8.9)
[2023-11-15 19:50] LABS: LIPASE < 10 U/L (11-82)
--- NOTE | 2023-11-15 20:18 | CT Report ---
PROCEDURE: Cervical Spine WO INDICATIONS: Neck trauma, midline tenderness TECHNIQUE: Noncontrast 3 mm thick sections acquired from the skull base to the T4 level. Sagittal and coronal r eformats were then constructed. For radiation dose reduction, the following was used: automated exp osure control, adjustment of mA and/or kV according to patient size. COMPARISON: 01/07/2022. FINDINGS: Image quality: Excellent. Bones: No fractures or dislocations. Straightening of normal cervical lordosis. Posterior change fr om posterior spinal fixation extending C3-T2. No findings concerning for hardware complication. Statu s post C5-C6 laminectomy. Redemonstration of degenerative changes with bulky anterior osteophytosis. Decreased osseous mineralization. Visualized superior ribs are intact. Soft tissues: Prevertebral soft tissues are normal in thickness. No paravertebral hematomas. No ap ical pneumothoraces. Small bilateral pleural effusions. IMPRESSION: 1.No acute, displaced fracture or traumatic subluxation. 2.Postoperative and degenerative changes as described above. Reviewed by: Jeff Bowden MD on 11/15/2023 8:16 PM PDT Approved by: Jeff Bowden MD on 11/15/2023 8:16 PM PDT Station ID: [id number]
--- NOTE | 2023-11-15 20:19 | CT Report ---
PROCEDURE: Head WO INDICATIONS: Head trauma, abnormal mental status TECHNIQUE: Noncontrast 4.5 mm thick angled axial sections acquired from the foramen magnum to the vertex. For r adiation dose reduction, the following was used: automated exposure control, adjustment of mA and/or kV according to patient size. COMPARISON: 04/21/2022. FINDINGS: Image quality: Excellent. CSF spaces: Basal cisterns are patent. No extra-axial fluid collections. Ventricles are normal in size and shape. 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 Age-related global volume loss and chronic microvascular ischemic changes. Intracranial atherosclerotic vascular calcifications. No midline shift. No intracranial masses or hemorrhage. Cortes-white matter interfac e is normal. Skull and face: Calvarium and visualized facial bones are intact, without suspicious lesions. Sinuses: Visualized sinuses and mastoids are clear. IMPRESSION: No acute intracranial pathology. Reviewed by: Jeff Bowden MD on 11/15/2023 8:18 PM PDT Approved by: Jeff Bowden MD on 11/15/2023 8:18 PM PDT Station ID: [id number]
[2023-11-15 20:23] LABS: BILIRUBIN,URINE NEGATIVE (NEGATIVE); GLUCOSE, URINE (UA) NEGATIVE (NEGATIVE); KETONES,URINE (UA) 15 mg/dL (NEGATIVE); LEUKOCYTE ESTERASE, URINE LARGE (NEGATIVE); NITRITE,URINE POSITIVE (NEGATIVE); OCCULT BLOOD,URINE MODERATE (NEGATIVE); PROTEIN,URINE 30 mg/dL (NEGATIVE); UROBILINOGEN,URINE 0.2 (NORMAL) E.U./dL (NORMAL)
[2023-11-15 20:24] LABS: CLARITY,URINE CLOUDY (CLEAR)
[2023-11-15 20:31] LABS: AMORPHOUS SEDIMENT,UR Marked /LPF; BACTERIA,URINE Many /HPF (None Seen); RBC,URINE TNTC /HPF (0-5); SQUAMOUS EPITHELIAL CELL,UR FEW Squamous (<= Few); WBC,URINE >25 /HPF (0-5)
[2023-11-15 20:35] LABS: AMPHETAMINE SCREEN,URINE NEGATIVE (NEGATIVE); BARBITURATE SCREEN,UR NEGATIVE (NEGATIVE); BENZODIAZEPINES SCREEN, URINE NEGATIVE (NEGATIVE); BUPRENORPHINE SCREEN, URINE NEGATIVE (NEGATIVE); COCAINE SCREEN URINE NEGATIVE (NEGATIVE); METHADONE SCREEN, URINE NEGATIVE (NEGATIVE); METHAMPHETAMINES SCREEN, URINE NEGATIVE (NEGATIVE); OPIATE SCREEN, URINE NEGATIVE (NEGATIVE); OXYCODONE SCREEN, URINE NEGATIVE (NEGATIVE); THC CANNABINOID SCREEN, URINE NEGATIVE (NEGATIVE); TRICYCLIC ANTIDEPRESSANT,URINE NEGATIVE (NEGATIVE)
--- NOTE | 2023-11-15 20:35 | CT Report ---
PROCEDURE: Chest WO INDICATIONS: fall poss chest trauma TECHNIQUE: A CT scan of the chest was performed. Intravenous contrast media was not administered. Images were re corded and evaluated at appropriate window settings. Reformats: axial MIP of the chest, coronal and s agittal. For radiation dose reduction, the following was used: automated exposure control, adjustment of mA and/or kV according to patient size. COMPARISON: 01/26/2023. FINDINGS: Image quality: Diagnostic. Chest wall and lower neck: No thyroid nodule which requires sonographic follow up. No axillary or sup raclavicular adenopathy by size. Mild severe stranding within the upper chest, may reflect bruising. Multiple surgical clips within the left breast with associated soft tissue density. Lungs and pleura: Small to moderate right and small left pleural effusions with adjacent atelectasis versus consolidation. This is increased on the left. Scattered pleural thickening and calcifications. Right upper lobe groundglass opacities are noted. Mediastinum: Heart size is normal. Moderate coronary artery coruscations. No pericardial effusion. No large vessel abnormality. Significant vascular calcifications. No mediastinal adenopathy by size cri teria. Bones: No aggressive osseous abnormality. Degenerative changes of the spine. Decreased osseous minera lization. Upper thoracic spine hardware. Upper Abdomen: Please refer to separate dictated CT of the abdomen. IMPRESSION: 1.Mild soft tissue stranding within the upper anterior chest wall, may reflect bruising. Otherwise, n o acute traumatic injuries identified. 2.New groundglass within the right upper lobe, likely infectious in etiology. 3.New small left pleural effusion. 4.Right pleural effusion is similar in appearance to prior. Reviewed by: Jeff Bowden MD on 11/15/2023 8:33 PM PDT Approved by: Jeff Bowden MD on 11/15/2023 8:33 PM PDT Station ID: [id number]
--- NOTE | 2023-11-15 20:40 | CT Report ---
PROCEDURE: Abdomen/Pelvis WO INDICATIONS: pelvic trauma TECHNIQUE: A CT scan of the abdomen and pelvis was performed without the use of intravenous contrast. Images we re recorded and evaluated at appropriate window settings. Reformats: coronal and sagittal. For radiat ion dose reduction, the following was used: automated exposure control, adjustment of mA and/or kV ac cording to patient size. COMPARISON: 06/21/2020 FINDINGS: Image quality: Diagnostic. Lower chest: Please refer to separately dictated CT of the chest. Liver: No contour-deforming mass. Gallbladder: Cholelithiasis without wall thickening. Biliary tree: No intrahepatic or extrahepatic dilation, accounting for age. Spleen: No splenomegaly. Pancreas: No pancreatic ductal dilation. Cystic focus within the body of the pancreas measures 2.6 cm . Adrenals: No adrenal nodule. Kidneys and ureters: No hydronephrosis. No contour-deforming mass. Stomach, bowel and peritoneum: No gastric or small bowel dilation. No abnormal wall thickening. No pa thologic free fluid. Anastomotic sutures in the right colon. Lymph nodes: No central or retroperitoneal adenopathy. Vessels: No infrarenal aortic aneurysm. Significant atherosclerotic calcifications. Reproductive organs: Unremarkable. Bladder: Bladder wall thickness is normal, accounting for underdistention. No calcified bladder stone s. Pelvic lymph nodes: No adenopathy by size criteria. Bones: No aggressive osseous abnormality. Degenerative changes in the spine. L4-5 posterior spinal fi xation. Left hip arthroplasty. No acute fractures are seen. Other: No significant ventral or inguinal hernia. IMPRESSION: 1.No acute traumatic injury within the abdomen or pelvis. 2.Cystic area within the body of the pancreas, better evaluated on prior MRI. Reviewed by: Jeff Flores MD on 11/15/2023 8:39 PM PDT Approved by: Jeff Flores MD on 11/15/2023 8:39 PM PDT Station ID: [id number]
[2023-11-15] MEDS ORDERED: ONDANSETRON 4 MG/2 ML VIAL IVP PRN (20:57)
[2023-11-15] MEDS: cefTRIAXone 1 GM VIAL IVP STA (21:13)
[2023-11-15] MEDS: AZITHROMYCIN INJ 500 MG in SODIUM CHLORIDE 0.9% 250 ML IV STA (21:14)
[2023-11-15] MEDS: APIXABAN 5 MG TABLET PO SCH (21:27)
[2023-11-16 05:59] LABS: BASOPHILS % (AUTO) 0.3 %; EOSINOPHILS # (AUTO) 0.1 10^3/uL (0.0-0.7); EOSINOPHILS % (AUTO) 0.7 %; HCT - HEMATOCRIT 35.6 % (37.0-47.0); HGB - HEMOGLOBIN 11.4 g/dL (12.0-16.0); LYMPHOCYTES # (AUTO) 0.9 10^3/uL (1.5-3.5); LYMPHOCYTES % (AUTO) 12.2 %; MEAN CORPUSCULAR HEMOGLOBIN 27.2 pg (27.0-31.0); MEAN PLATELET VOLUME 9.5 fL (7.9-10.8); MONOCYTES # (AUTO) 0.7 10^3/uL (0.0-1.0); MONOCYTES % (AUTO) 9.2 %; NEUTROPHILS # (AUTO) 5.4 10^3/uL (1.5-6.6); NEUTROPHILS % (AUTO) 77.2 %; PLT - PLATELET COUNT 261 10^3/uL (130-450); RED BLOOD COUNT 4.19 10^6/uL (4.20-5.40); RED CELL DISTRIBUTION WIDTH 17.7 % (12.0-15.0); WHITE BLOOD COUNT 7.1 x10^3/uL (4.8-10.8)
[2023-11-16 06:07] LABS: CALCIUM 8.7 mg/dL (8.5-10.3); CREATININE 0.7 mg/dL (0.6-1.3); POTASSIUM 2.8 mmol/L (3.5-4.5)
[2023-11-16] MEDS: PANTOPRAZOLE 40 MG TABLET PO SCH (06:07)
[2023-11-16] MEDS: LEVOTHYROXINE 100 MCG TABLET PO SCH (06:07)
[2023-11-16] MEDS: POTASSIUM CHLOR 10 MEQ/100 ML 10 MEQ/100 ML BAG IV ONE (07:28)
[2023-11-16] MEDS: cefTRIAXone 1 GM in SODIUM CHLORIDE 0.9% MINIBAG 100 ML IV SCH (09:19)
[2023-11-16] MEDS: AZITHROMYCIN INJ 500 MG in SODIUM CHLORIDE 0.9% 250 ML IV SCH (10:06)
[2023-11-16] MEDS: POTASSIUM CHLORIDE 20 MEQ TABLET PO STA (10:18)
[2023-11-16] MEDS: carvediloL 12.5 MG TABLET PO SCH (10:18)
[2023-11-16] MEDS: ACETAMINOPHEN 325 MG TABLET PO STA (10:18)
[2023-11-16] MEDS: SODIUM CHLORIDE 0.9% 1,000 ML IV STA (10:19)
--- NOTE | 2023-11-16 10:44 | XRAY Report ---
PROCEDURE: Shoulder 2+V RT INDICATIONS: fall, right shoulder pain TECHNIQUE: 3 views of the shoulder were acquired. COMPARISON: None. FINDINGS: Bones: No fractures or dislocations. No suspicious bony lesions. Visualized ribs appear intact. Glenohumeral and acromioclavicular joint space narrowing with associated osteophytosis. Soft tissues: No suspicious soft tissue calcifications. The visualized lungs are within normal limi ts. IMPRESSION: No acute bony abnormality. Moderate shoulder osteoarthritis. Reviewed by: Sunny Peres MD on 11/16/2023 10:43 AM PDT Approved by: Sunny Peres MD on 11/16/2023 10:43 AM PDT Station ID: [id number]
--- NOTE | 2023-11-16 13:32 | PHARMACY PROGRESS NOTE ---
- Best Possible Medication History Admit Date and Time: Processed by: Pharmacy Medications reviewed in ED?: Yes Medication History completed: Yes Patient Interview: Pt unable to participate Secondary Source(s): Pharmacy records, Insurance records As the person ultimately responsible for medication therapy, providers are able to order a medication from an existing home medication list in [facility] via the "Reconcile Routine" prior to Confirmation of that medication by coding support specialist. Such practice is discouraged except when the physician, in their clinical judgment, deems that a medical need exists for a medication without regard to previous use.
--- NOTE | 2023-11-16 16:07 | ED Physician Documentation ---
ED Addendum - Addendum Addendum: 11/16/23 16:07 Patient was boarded in the emergency department until a bed became available on the inpatient side. I spoke with Dr. Fink, hospitalist at approximately 4 PM. He will come evaluate the patient. Patient has been maintained on antibiotics. Her potassium was replaced as well. 11/16/23 17:19 Dr. Fink came and evaluated the patient, does not feel that she meets criteria for admission to the hospital at this time. I went and spoke with the patient. She appears to have severe dementia, suspect that she is at her normal baseline currently. She states that she lives at home with her parents. Reportedly her son lives in [place], daughter is coming up from [place]. Her white blood cell count is normal. She is not hypoxic. Her potassium is improved. She is eating and drinking without difficulty. Given that she is likely very unsafe to be living alone at this time, she will board in the emergency department to await social work reevaluation tomorrow. 11/16/23 20:18 Patient is signed out to the [facility] emergency department physician. Departure - Departure Clinical Impression: Delirium Pneumonia Qualifiers: Pneumonia type: due to unspecified organism Laterality: right Lung location: unspecified part of lung Qualified Code(s): J18.9 - Pneumonia, unspecified organism UTI (urinary tract infection) Qualifiers: Urinary tract infection type: site unspecified Hematuria presence: without hematuria Qualified Code(s): N39.0 - Urinary tract infection, site not specified Fall Qualifiers: Encounter type: initial encounter Qualified Code(s): W19.XXXA - Unspecified fall, initial encounter Facial contusion Qualifiers: Encounter type: initial encounter Qualified Code(s): S00.83XA - Contusion of other part of head, initial encounter Atrial fibrillation Qualifiers: Atrial fibrillation type: unspecified Qualified Code(s): I48.91 - Unspecified atrial fibrillation Advanced dementia Qualifiers: Dementia type: unspecified type Dementia behavioral or psychological symptom: unspecified whether behavioral, psychotic, or mood disturbance or anxiety Qualified Code(s): F03.C0 - Unspecified dementia, severe, without behavioral disturbance, psychotic disturbance, mood disturbance, and anxiety Condition: Serious Forms: PCP List
[2023-11-16 17:07] LABS: CALCIUM 8.1 mg/dL (8.5-10.3); CREATININE 0.8 mg/dL (0.6-1.3); POTASSIUM 3.2 mmol/L (3.5-4.5)
[2023-11-16] MEDS: POTASSIUM BICARB 25 MEQ TABLET PO STA (18:16)
--- NOTE | 2023-11-17 13:57 | ED Physician Documentation ---
ED Addendum - Addendum Addendum: 11/17/23 13:55 The patient has not had any particular complaints. She had continued with her scheduled medications. Nursing does not report any problems. Social work had been working on getting the patient placed to a memory care facility. Apparently it was "taking too long" so they gave the bed away to another person heading having anticipated or hoping yesterday or today for the patient. They will look for another bed.
[2023-11-17] MEDS: ACETAMINOPHEN 500 MG TABLET PO PRN (20:58)
--- NOTE | 2023-11-18 08:42 | ED Physician Documentation ---
ED Addendum - Addendum Addendum: 11/18/23 08:42 SNOWBOARD INSTRUCTOR approached me and let me know that the primary care physician is out of the office today. As such I did complete group home orders for the patient. 11/18/23 13:33 Disposition: Discharged to SNF Condition: Stable
[2023-11-18] MEDS: COD LIVER OIL/ZINC OXIDE 113 GM TUBE TOP PRN (09:56)
[2023-11-18 12:44] VITALS: O2SAT 100
[2023-11-18 14:10] VITALS: BP 141/87
--- NOTE | 2023-11-19 11:56 | ED Physician Documentation ---
ED Addendum - Addendum Addendum: 11/19/23 11:56 Culture reviewed, she had a few days of Rocephin which should cover this isolate well.
== END 2023-11-18 13:20 ==
LOC: EDUNIT# → ED 18:56
DX: S00.83XA Contusion of other part of head, initial encounter (principal); W18.30XA Fall on same level, unspecified, initial encounter; R41.0 Disorientation, unspecified; J18.9 Pneumonia, unspecified organism; N39.0 Urinary tract infection, site not specified; Y92.009 Unspecified place in unspecified non-institutional (private) residence as the place of occurrence of the external cause; I48.91 Unspecified atrial fibrillation; F03.C0 Unspecified dementia, severe, without behavioral disturbance, psychotic disturbance, mood disturbance, and anxiety; I10 Essential (primary) hypertension; E78.00 Pure hypercholesterolemia, unspecified; I25.10 Atherosclerotic heart disease of native coronary artery without angina pectoris; E11.9 Type 2 diabetes mellitus without complications; Z79.01 Long term (current) use of anticoagulants; Z79.899 Other long term (current) drug therapy; Z79.84 Long term (current) use of oral hypoglycemic drugs; Z75.1 Person awaiting admission to adequate facility elsewhere
CPT/HCPCS: 36415; 70450; 71250; 72125; 73030; 74176; 80048; 80053; 80306; 81001; 82550; 83605; 83690; 85025; 85610; 87040; 87086; 87181; 96365; 96366; 96367; 96376; 97162; 99285; A9270; G0480; 81003; 82077

== ENCOUNTER 2023-11-18 13:18 | Outpatient (CLI) | payer MEDICARE, OTHER | END 2023-11-18 23:59 | LOC: EMS 13:18 | PROVIDERS: ATTEND Emergency Medicine | DX: R41.0 Disorientation, unspecified (principal); I48.91 Unspecified atrial fibrillation; F03.90 Unspecified dementia, unspecified severity, without behavioral disturbance, psychotic disturbance, mood disturbance, and anxiety; Z74.01 Bed confinement status | CPT/HCPCS: A0425; A0428 ==

== ENCOUNTER 2023-12-07 08:00 | Outpatient (CLI) | payer MEDICARE, OTHER ==
[2023-12-07 22:25] LABS: BILIRUBIN,URINE NEGATIVE (NEGATIVE); GLUCOSE, URINE (UA) NEGATIVE (NEGATIVE); KETONES,URINE (UA) NEGATIVE (NEGATIVE); LEUKOCYTE ESTERASE, URINE TRACE (NEGATIVE); NITRITE,URINE POSITIVE (NEGATIVE); OCCULT BLOOD,URINE SMALL (NEGATIVE); PROTEIN,URINE NEGATIVE (NEGATIVE); UROBILINOGEN,URINE 0.2 (NORMAL) E.U./dL (NORMAL)
[2023-12-07 22:31] LABS: CLARITY,URINE HAZY (CLEAR)
[2023-12-07 22:33] LABS: BACTERIA,URINE Many /HPF (None Seen); RBC,URINE 0-5 /HPF (0-5); SQUAMOUS EPITHELIAL CELL,UR MOD Squamous (<= Few)
== END 2023-12-07 23:59 | disposition home or self-care (01) ==
LOC: LAB.R 08:00
DX: N39.0 Urinary tract infection, site not specified (principal)
CPT/HCPCS: 81001; 81003; 87086

== ENCOUNTER 2023-12-10 08:00 | Outpatient (CLI) | payer MEDICARE, OTHER ==
[2023-12-10 21:54] LABS: BILIRUBIN,URINE NEGATIVE (NEGATIVE); GLUCOSE, URINE (UA) NEGATIVE (NEGATIVE); KETONES,URINE (UA) NEGATIVE (NEGATIVE); LEUKOCYTE ESTERASE, URINE SMALL (NEGATIVE); NITRITE,URINE NEGATIVE (NEGATIVE); OCCULT BLOOD,URINE TRACE-INTA (NEGATIVE); PROTEIN,URINE NEGATIVE (NEGATIVE); UROBILINOGEN,URINE 0.2 (NORMAL) E.U./dL (NORMAL)
[2023-12-10 21:57] LABS: CLARITY,URINE CLOUDY (CLEAR)
[2023-12-10 22:00] LABS: BACTERIA,URINE Many /HPF (None Seen); RBC,URINE 0-5 /HPF (0-5); SQUAMOUS EPITHELIAL CELL,UR FEW Squamous (<= Few); WBC,URINE >25 /HPF (0-5)
== END 2023-12-10 23:59 | disposition home or self-care (01) ==
LOC: LAB.R 08:00
PROVIDERS: ATTEND Family Medicine
DX: N39.0 Urinary tract infection, site not specified (principal)
CPT/HCPCS: 81001; 87077; 87086; 87181